=== PATIENT | male | born 1945 | race Caucasian/White ===

== ENCOUNTER 2022-08-05 16:43 | Outpatient (CLI) | payer MEDICARE, OTHER, SELFPAY ==
--- NOTE | 2022-08-05 | IMM_PTH ---
PATIENT: IVAN SALAS LOC: [facility] U#:[id number] AGE/SX: 76/M ROOM: RE08/05/[address]: Dr. Gregorio Baron MD : 1945 BED: DIS: 08/05/2022 SPEC #: [id number] RECD: 08/07/22 14:16 STATUS: JOYCELYN RELg #: [id number] SEEMA: 08/05/22 00:[address]: Gregorio Baron DEPT: IMMUNOHISTOCHEMISTRY RECD BY: Amber Cheema ENTERED: 08/07/22 14:18 SP TYPE: IMMUNO OTHR DR: Alexei Duran, COMPILATION CLERK-C Tissues: B - PROSTATE RIGHT C - PROSTATE RIGHT D - PROSTATE LEFT E - PROSTATE LEFT Procedures: 34BE12 (add) P40 (add) 34BE12 (initial) PHYSICIAN & INSTITUTION [place] [facility] [phone] SPECIMEN INFORMATION: Tissue Source: B - Right mid, C - Right base, D - Left apex, E - Left mid Clinical Info: Elevated PSA Specimen Number: [id number] B-E CPT code: 14381, 26911 x7 METHODOLOGY: Deparaffinized sections of prefer/formalin-fixed tissue or PAP/DQ stained slides are incubated with monoclonal/polyclonal antibodies/oligonucleotide probes. Localization is made via biotin free immunoperoxidase method. Appropriate controls are performed and reacted as expected. Results on target cell population are indicated in the following table: RESULTS: ANTIBODY / CLONE RESULT Block B P40 (BC28) negative * 34BE12 (34BE12) negative * Block C P40 (BC28) negative * 34BE12 (34BE12) negative * Block D P40 (BC28) negative * 34BE12 (34BE12) negative * Block E P40 (BC28) negative * 34BE12 (34BE12) negative * *?Positive in the area of HGPIN. These tests were developed and their performance characteristics determined by [facility]. They may not have been cleared or approved by the [place]. Food and Drug Administration. The FDA has determined that such clearance or approval is not necessary. The above immunohistochemical/dualISH markers are ordered and reviewed by the Pathologist. INTERPRETATION: B. Right prostate, mid, core biopsy: Adenocarcinoma. High-grade prostatic intraepithelial neoplasia (HGPIN). C. Right prostate, base, core biopsy: Adenocarcinoma. High-grade prostatic intraepithelial neoplasia (HGPIN). D. Left prostate, apex, core biopsy: Adenocarcinoma. High-grade prostatic intraepithelial neoplasia (HGPIN). E. 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 SJ:raquel 08/08/2022
--- NOTE | 2022-08-05 09:00 | PROSBIL_PTH ---
PATIENT: IVAN SALAS LOC: [facility] U#:[id number] AGE/SX: 76/M ROOM: RE08/05/[address]: Dr. Gregorio Baron MD : 1945 BED: DIS: 08/05/2022 SPEC #: [id number] RECD: 08/06/22 09:53 STATUS: JOYCELYN RELg #: [id number] SEEMA: 08/05/22 09:[address]: Gregorio Baron DEPT: SURGICAL PATHOLOGY RECD BY: Yasemin Mancia ENTERED: 08/06/22 09:54 SP TYPE: PROST BX JANNETH DR: Alexei Duran, TOSIN-Samir Tissues: A - PROSTATE RIGHT B - PROSTATE RIGHT C - PROSTATE RIGHT D - PROSTATE LEFT E - PROSTATE LEFT F - PROSTATE LEFT Procedures: PROSTATE BX HEADER OPERATION: Prostate biopsy PRE-OP DIAGNOSIS: Elevated PSA TISSUE SUBMITTED: A - Right apex, B - Right mid, C - Right base, D - Left apex, E - Left mid, F - Left base MICROSCOPIC DIAGNOSIS A. Right prostate, apex, core biopsy: Prostatic adenocarcinoma. [place] grade: 3+3=6 Number of cores involved: 1/2 Proportion of tissue involved: ~20% Perineural invasion: Not identified. Greatest tumor length: 0.4 cm Focal high-grade prostatic intraepithelial neoplasia (HGPIN). B. Right prostate, mid, core biopsy: Prostatic adenocarcinoma. [place] grade: 3+3=6 Number of cores involved: 1/2 Proportion of tissue involved: <5% Perineural invasion: Not identified. Greatest tumor length: 0.1 cm Focal high-grade prostatic intraepithelial neoplasia (HGPIN). See comment. C. Right prostate, base, core biopsy: Prostatic adenocarcinoma. [place] grade: 3+3=6 Number of cores involved: 1/2 Proportion of tissue involved: <5% Perineural invasion: Not identified. Greatest tumor length: 0.1 cm Focal high-grade prostatic intraepithelial neoplasia (HGPIN). See comment. D. Left prostate, apex, core biopsy: Prostatic adenocarcinoma. [place] grade: 3+3=6 Number of cores involved: 1/2 Proportion of tissue involved: ~20% Perineural invasion: Not identified. Greatest tumor length: 0.4 cm Focal high-grade prostatic intraepithelial neoplasia (HGPIN). See comment. E. 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 See comment. F. Left prostate, base, core biopsy: Focal high-grade prostatic intraepithelial neoplasia (HGPIN). SJ:raquel 08/07/2022 COMMENT B-E. Immunohistochemistry ([id number]) supports the above diagnosis. MICROSCOPIC DESCRIPTION Slides are reviewed. GROSS DESCRIPTION A - Received is one container designated prostate, right apex. The specimen consists of two elongated fragments of light varner-white soft tissue each measuring 1.0 cm in length and 0.1 cm in diameter. The specimen is totally submitted in one cassette. B - Received is one container designated prostate, right mid. The specimen consists of two elongated fragments of light varner-white soft tissue measuring 1.2 and 1.5 cm in length and 0.1 cm in diameter. The specimen is totally submitted in one cassette. C - Received is one container designated prostate, right base. The specimen consists of two elongated fragments of light varner-white soft tissue each measuring 1.2 cm in length and 0.1 cm in diameter. The specimen is totally submitted in one cassette. D - Received is one container designated prostate, left apex. The specimen consists of two elongated fragments of light varner-white soft tissue each measuring 0.9 cm in length and 0.1 cm in diameter. The specimen is totally submitted in one cassette. E - Received is one container designated prostate, left mid. The specimen consists of two elongated fragments of light varner-white soft tissue each measuring 1.0 cm in length and 0.1 cm in diameter. The specimen is totally submitted in one cassette. F - Received is one container designated prostate, left base. The specimen consists of two elongated fragments of light varner-white soft tissue each measuring 1.1 cm in length and 0.1 cm in diameter. The specimen is totally submitted in one cassette. / SJ:rg 08/06/2022 TC:0 CPT: G0146
== END 2022-08-05 23:59 | disposition home or self-care (01) ==
LOC: LABSPEC 16:48
PROVIDERS: PCP Nurse Practitioner Family; Visit Provider Urology
DX: C61 Malignant neoplasm of prostate (principal)
CPT/HCPCS: 88305; 88341; 88342; G0416

== ENCOUNTER 2024-11-26 20:47 | Observation (INO) | payer MEDICARE, OTHER, SELFPAY ==
[2024-11-26] VITALS (8 sets, daily range): BP systolic 109–144; BP diastolic 63–91; PULSE 59–83; RESP 16–18; TEMP 36.2–36.9; O2SAT 94–99; BMI 28.2; BMI 28.0
--- NOTE | 2024-11-26 20:53 | EDS_ITS ---
HPI History of Present Illness Chief Complaint: Stroke Alert [facility] Medical History (Updated 11/26/24 @ 22:[address] Josefa Roberts MD) CKD (chronic kidney disease) BPH (benign prostatic hyperplasia) Chronic anemia HLD (hyperlipidemia) HTN (hypertension) Valvular heart disease CAD (coronary artery disease) Home Medications ?Medication ?Instructions ?Recorded ?Last Taken ?Type aspirin 81 mg capsule 81 mg PO DAILY 11/26/24 Unkn own History cholecalciferol (vitamin D3) 25 1,000 unit PO QDAY 01/13 Unknown History mcg (1,000 unit) capsule (Vitamin D3) finasteride 5 mg tablet 5 mg PO DAILY 11/26/24 Unkno wn History metoprolol succinate 25 mg 12.5 mg PO DAILY 11/26/24 U nknown History tablet,extended release 24 hr rosuvastatin 40 mg tablet 40 mg PO DAILY 11/26/24 Unkn own History tamsulosin 0.4 mg capsule 0.4 mg PO DAILY 11/26/24 Unk nown History Allergy/AdvReac Type Severity Reaction Status Date / Time No Known Allergies Allergy Verified 11/26/24 20:48 Family History (Updated 11/26/24 @ 22:[address] Josefa Roberts MD) Mother , while attempting CABG x 4. CAD (coronary artery disease) Hypertension Heart disease Myocardial infarction Other Prostate cancer Surgical History (Updated 11/26/24 @ 21:[address] Josefa Roberts MD) History of tonsillectomy and adenoidectomy Hx of aortic valve replacement Hx of bilateral hip replacements History of bilateral knee replacement Hx of coronary artery bypass surgery Social History household members: spouse Smoking Status: Never smoker alcohol intake: never substance use type: does not use EXAM Physical Exam Const Vital Signs: 11/26/24 20:49 Pulse Rate 72 Respiratory Rate 16 Blood Pressure 144/70 H Blood Pressure Mean 94 Pulse Ox 94 Oxygen Delivery Method Room Air MDM MDM MDM Narrative Medical decision making narrative: HISTORY OF PRESENT ILLNESS: Chief complaint: Code stroke 79-year-old male presents with concern for acute stroke. Notes at 8:30 PM on 11/26/2024 he started experiencing left arm weakness. Denies chest pain. Denies falls. Has blood thinners. REVIEW OF SYSTEMS: Pertinent positives: Left arm weakness Pertinent negatives: Chest pain, headache PHYSICAL EXAM: Nursing triage notes reviewed, Vital signs reviewed Constitutional: please see mdm HENT: MMM Eyes: Pupils equal round and reactive to light, Extraocular muscles intact Neck: No stridor, no JVD, full neck ROM Lungs: Clear to auscultation, No wheezing or rales. No increased work of breathing, no conversational dyspnea, no accessory muscle use, no nasal flaring. No respiratory distress noted Heart: Regular rate and rhythm, No murmurs, No rubs and No gallops, 2+ distal pulses (radial, femoral, posterior tibial) in all extremities Abdomen: Soft, there is no tenderness, rigidity, rebound or guarding, no obvious peritoneal signs, no palpable pulsatile abdominal masses, no auscultated abdominal bruit : No CVAT Extremities: No edema Neuro: Alert, oriented x 3, no speech issues, no aphasia, no cranial nerve deficits, noted slight weakness left upper extremity in a ataxia left upper extremity otherwise no other focal neurologic deficits. NIH of 2 Skin: No rash or lesions noted MEDICAL DECISION MAKING: Chief Complaint: please see HPI External records reviewed: Reviewed prior imaging Factors affecting care: CAD, hypertension, hyperlipidemia, valvular heart disease, chronic anemia BPH Social determinants of health: none History obtained from others: Family Consults: Stroke neurology, stroke radiology, internal medicine [facility] Narrative: Patient was initially hemodynamically stable, afebrile nontoxic-appearing. He had left upper extremity weakness, initial NIH of 2 for left upper extremity weakness and ataxia I considered the following differential diagnosis: CVA, TIA, ICH, Kei's paralysis, focal seizure Given patient was in the 4 0.5 hour TNK window was taken immediately to CT scan per stroke protocol Noncon was verbally read by radiologist as negative. Shared decision-making discussion was undertaken between Dr. Mills (the stroke neurology), myself, patient and daughter and we jointly decided to forego TNK at this time given low NIH, lack of debilitating symptom and due to symptoms improving. Dr. Mills further recommended loading the patient with Aspirin and Plavix. He also recommended obtaining a duplex ultrasound the patient carotid arteries as an inpatient. ALL IMAGES (IF OBTAINED) HAVE BEEN PERSONALLY REVIEWED AND INTERPRETED BY MYSELF. I have personally reviewed the patient's chest x-ray. Chest x-ray is unremarkable for pulmonary edema, pneumothorax, pneumonia or focal cardiopulmonary abnormality. EKG with normal sinus rhythm rate of 69, frequent PVCs, normal axis, normal intervals, no STEMI, no A-fib CT scan of the brain shows no evidence of ICH CTA of the head and neck shows no large vessel occlusion The patient and/or family, caregivers express understanding. The patient and/or family, caregivers agrees with the plan. Right I have personally reviewed the patient's chest x-ray. Chest x-ray is unremarkable for pulmonary edema, pneumothorax, pneumonia or focal cardiopulmonary abnormality. The synthesis of the patient's history, physical exam, labs images suggests likely acute CVA. The patient will be admitted to the PCU for further stroke care per stroke neurology recommendations. Shared decision making: I will have a discussion with the patient and or visitors regarding risk/benefits of further testing or admission. They will be made aware of of the risk/benefits inherent in this decision they will be given the opportunity to voice understanding. Total critical care time today provided was at least 0 minutes. This excludes separately billable procedures. Critical care time (if documented) is secondary to the patient having high probability of clinically significant/life threatening deterioration in the patient's condition which required my urgent intervention. Impression: 1. Acute CVA 2. History of CAD Dispo: Admit to PCU observation This note was generated with [employer] dictation software. It may contain incorrect words, spelling, and punctuation that were not noted in review of the chart nedra or to signing. Discharge Plan Triage Chief Complaint: Stroke Alert ED Provider: Arnol Estrada Dx/Rx/DC Orders Primary Care Provider: Alexei Duran NP
--- OUTSIDE RECORDS SUMMARY | 2024-11-26 20:53 | XMS RPT_ITS | CCD ---
Author Organization [facility] Inform ion [facility] Care Team Providers Care Lens Cementer Name Role Phone ROGER PHARMACEUTICAL REPRESENTATIVE - DRIP BOX TENDER, CHI Wright Primary Care Phys ician Roger UI UX ENGINEER, Chi Bro Primary Care Unav Gregorio Mckeon Attending Unavailable ROGER PHARMACEUTICAL REPRESENTATIVE - DRIP BOX TENDER, CHI Wright Primary Care U navailable SIMMONS PHARMACEUTICAL REPRESENTATIVE-DRIP BOX TENDER, SIMI Attending Unavail able AGRY CUELLAR, SHRAVAN Consulting Unavailable TAMMY CUELLAR, ABISAI Tran Attending Unavailable ROGER PHARMACEUTICAL REPRESENTATIVE - DRIP BOX TENDER, CHI Wright Primary Care U navailable SIMMONS PHARMACEUTICAL REPRESENTATIVE-DRIP BOX TENDER, SIMI Attending Unavail able ROGER PHARMACEUTICAL REPRESENTATIVE - DRIP BOX TENDER, CHI Wright Primary Care U navailable ROGER PHARMACEUTICAL REPRESENTATIVE - DRIP BOX TENDER, CHI Wright Primary Care U navailable SIMMONS PHARMACEUTICAL REPRESENTATIVE-DRIP BOX TENDER, SIMI Attending Unavail able KESHA CUELLAR, RUBIO Admitting Unavailable KESHA CUELLAR, RUBIO Attending Unavailable ROGER PHARMACEUTICAL REPRESENTATIVE - DRIP BOX TENDER, CHI rWight Primary Care U shad BETH MD, DR GUARDADO Admitting Unavailab gregory BETH MD, DR GUARDADO Attending Unavailab le ROGER PHARMACEUTICAL REPRESENTATIVE - DRIP BOX TENDER, CHI Wright Primary Care U navailable ROGER PHARMACEUTICAL REPRESENTATIVE - DRIP BOX TENDER, CHI Wright Primary Care U navailable ROGER PHARMACEUTICAL REPRESENTATIVE - DRIP BOX TENDER, CHI Wright Attending U navailable ROGER PHARMACEUTICAL REPRESENTATIVE - DRIP BOX TENDER, CHI Wright Primary Care U navailable SIMMONS PHARMACEUTICAL REPRESENTATIVE-DRIP BOX TENDER, SIMI Attending Unavail able ROGER PHARMACEUTICAL REPRESENTATIVE - DRIP BOX TENDER, CHI Wright Primary Care U navailable SIMMONS PHARMACEUTICAL REPRESENTATIVE-DRIP BOX TENDER, SIMI Attending Unavail able ROGER PHARMACEUTICAL REPRESENTATIVE - DRIP BOX TENDER, CHI Wright Primary Care U navailable SIMMONS PHARMACEUTICAL REPRESENTATIVE-DRIP BOX TENDER, SIMI Attending Unavail able ROGER PHARMACEUTICAL REPRESENTATIVE - DRIP BOX TENDER, CHI Wright Primary Care U navailable SIMMONS PHARMACEUTICAL REPRESENTATIVE-DRIP BOX TENDER, SIMI Attending Unavail able ROGER PHARMACEUTICAL REPRESENTATIVE - DRIP BOX TENDER, CHI Wright Primary Care U shad REBOLLEDO MD, RUBIO Attending Unavailable ROGER PHARMACEUTICAL REPRESENTATIVE - DRIP BOX TENDER, CHI Wright Primary Care U navailable ROGER PHARMACEUTICAL REPRESENTATIVE - DRIP BOX TENDER, CHI Wright Attending U shad NEAL MD, DR GREGORIO CARPENTER Attending Shayna nieto ROGER PHARMACEUTICAL REPRESENTATIVE - DRIP BOX TENDER, CHI Wright Primary Care U navailable ROGER PHARMACEUTICAL REPRESENTATIVE - DRIP BOX TENDER, CHI Wright Primary Care U navailable ROGER PHARMACEUTICAL REPRESENTATIVE - DRIP BOX TENDER, CHI Wright Attending U navailable ROGER PHARMACEUTICAL REPRESENTATIVE - DRIP BOX TENDER, CHI Wright Attending U navailable ROGER PHARMACEUTICAL REPRESENTATIVE - DRIP BOX TENDER, CHI Wright Primary Care U navailable ROGER PHARMACEUTICAL REPRESENTATIVE - DRIP BOX TENDER, CHI Wright Primary Care U navailable GREGORIO NEAL Attending Unavailable ROGER PHARMACEUTICAL REPRESENTATIVE - DRIP BOX TENDER, CHI Wright Primary Care U navailable DEJAN CUELLAR, TANYA Attending Unavailable ROGER PHARMACEUTICAL REPRESENTATIVE - DRIP BOX TENDER, CHI Wright Primary Care U navailable ROGER PHARMACEUTICAL REPRESENTATIVE - DRIP BOX TENDER, CHI Wright Attending U navailable ROGER PHARMACEUTICAL REPRESENTATIVE - DRIP BOX TENDER, CHI Wright Primary Care U navailable ROGER PHARMACEUTICAL REPRESENTATIVE - DRIP BOX TENDER, CHI Wright Attending U navailable DERICK AMOR Attending Unavailable ROGER PHARMACEUTICAL REPRESENTATIVE - DRIP BOX TENDER, CHI Wright Primary Care U navailable ÁNGEL, GREOGRIO Attending Unavailable ROGER PHARMACEUTICAL REPRESENTATIVE - DRIP BOX TENDER, CHI Wright Primary Care U navailable Medications Current Medications Medication Drug Class(es) Dates Sig (Normalized) Sig (Original) acetaminophen 1000 mg oral tablet (10 sources) Start: 07-07-2020 take 1 tablet by mouth once daily Tylenol Dose : 1,000 mg = 2 tab(s), Oral, TID, not to exceed 3000 mg/day, 0 Refill(s) Start Date: 07/07/20 Status: Ordered aspirin 81 mg delayed release oral tablet (20 sources) Platelet Aggregation Inhibitor, Nonsteroidal Anti-inflammatory Drug Start: 05-19-2023 aspirin 81 mg oral delayed release tablet Dose : 81 mg = 1 tab(s), Oral, Daily, 0 Refill(s) Start Date: 05/19/23 Status: Ordered Repeat number: 1 Start: 08-21-2021 take 1 tablet by justice th twice daily at mealtime aspirin Dose : 81 mg = 1 tab(s), Oral, BIDM, Take 81 mg aspirin twice daily with food for 4 weeks postoperatively for DVT prophylaxis, 0 Refill(s) Start Date: 08/21/21 Status: Ordered Start: 07-07-2020 take 1 tablet by justice th twice daily at mealtime aspirin Dose : 81 mg = 1 tab(s), Oral, qDay, Take 81 mg aspirin twice daily with food for 4 weeks postoperatively for DVT prophylaxis, 0 Refill(s) Start Date: 07/07/20 Status: Ordered Azithromycin 5 Day Dose Pack 250 mg oral tablet (1 source) Start: 12-29-2022 End: 01-03-2023 Azithromycin 5 Day Dose Pack 250 mg oral tablet Take two (2) tablets day 1-then one (1) tablet, Oral, Daily, X 5 day(s), # 6 tab(s), 0 Refill(s), 01/03/23 13:30:00 EDT, Pharmacy: [facility]/pharmacy #[id number], 181, cm, 12/29/22 12:59:00 EDT, Height, 102.9 Start Date: 12/29/22 Stop Date: 01/03/23 Status: Ordered calcium citrate 500 mg oral tablet (7 sources) Start: 04-29-2022 take 1 tablet by mouth twice daily Citracal 500 mg oral tablet Oral, BID, 0 Refill(s) Start Date: 04/29/22 Status: Ordered Start: 07-23-2021 take 1 tablet by justice th twice daily Citracal 500 mg oral tablet Dose : 500 mg =, Oral, BID, 0 Refill(s) Start Date: 07/23/21 Status: Ordered cephalexin 500 mg oral capsule (1 source) Cephalosporin Antibacterial Start: 03-05-2014 take 500 mg by mouth every six hours Cephalexin Active 500 MG PO EVERY 6 HOURS 40 March 04, 2014 11:00pm clopidogrel 75 mg oral tablet (7 sources) [id number] Platelet Inhibitor Start: 12-28-2023 Plavix 75 mg oral tablet Dose : 75 mg = 1 tab(s), Oral, qDay, # 90 tab(s), 3 Refill(s), Pharmacy: [facility]/pharmacy #[id number], 185, cm, 12/14/23 8:06:00 EDT, Height, kg, 12/14/23 8:06:00 EDT, Dosing Weight Start Date: 12/28/23 Status: Ordered Quantity: 90.0 Unit: tab(s) Repeat number: 4 Start: 09-28-2023 Plavix 75 mg o ral tablet Dose : 75 mg = 1 tab(s), Oral, qDay, # 90 tab(s), 0 Refill(s), [id number] 185, cm, 09/07/23 10:31:00 EDT, Height, kg, 09/07/23 10:31:00 EDT, Dosing Weight Start Date: 09/28/23 Status: Ordered Start: 07-01-2023 Plavix 75 mg o ral tablet Dose : 75 mg = 1 tab(s), Oral, qDay, # 90 tab(s), 0 Refill(s), [id number], 185.4, cm, 06/30/23 9:23:00 EST, Height, kg, 06/30/23 9:23:00 EST, Dosing Weight Start Date: 07/01/23 Status: Ordered famotidine 20 mg oral tablet (3 sources) Histamine-2 Receptor Antagonist Start: 08-21-2021 Pepcid 20 mg oral tablet Dose : 20 mg = 1 tab(s), Oral, qDay, # 30 tab(s), 0 Refill(s), [id number], 182, cm, 08/20/21 15:11:00 EST, Height, kg, 08/20/21 15:11:00 EST, Dosing Weight Start Date: 08/21/21 Status: Ordered finasteride 5 mg oral tablet (20 sources) 5-alpha Reductase Inhibitor Start: 06-27-2024 Proscar 5 mg oral tablet Dose : 5 mg = 1 tab(s), Oral, qDay, PSA elevation, # 100 tab(s), 1 Refill(s), Pharmacy: [facility]/pharmacy #[id number], PSA elevation, 180, cm, 06/27/24 8:03:00 EST, Height, kg, 06/27/24 8:03:00 EST, Dosing Weight Start Date: 06/27/24 Status: Ordered Quantity: 100.0 Unit: tab(s) Repeat number: 2 Indications: Elevated prostate specific antigen [PSA]; Start: 12-14-2023 Proscar 5 mg o ral tablet Dose : 5 mg = 1 tab(s), Oral, qDay, PSA elevation, # 100 tab(s), 1 Refill(s), [id number], PSA elevation, 185, cm, 12/14/23 8:06:00 EDT, Height, kg, 12/14/23 8:06:00 EDT, Dosing Weight Start Date: 12/14/23 Status: Ordered Quantity: 100.0 Unit: tab(s) Repeat number: 2 Indication: Elevated prostate specific antigen [PSA] Start: 05-25-2023 End: 11-21-2023 Proscar 5 mg oral tablet Dos e : 5 mg = 1 tab(s), Oral, qDay, PSA elevation, # 100 tab(s), 1 Refill(s), [id number], PSA elevation, 185, cm, 09/07/23 10:31:00 EDT, Height, kg, 09/07/23 10:31:00 EDT, Dosing Weight Start Date: 09/22/23 Status: Ordered Start: 05-29-2022 End: 05-23-2023 Proscar 5 mg oral tablet Dos e : 5 mg = 1 tab(s), Oral, qDay, PSA elevation, # 90 tab(s), 1 Refill(s), [id number], PSA elevation, 185, cm, 11/24/22 8:28:00 EDT, Height, kg, 11/24/22 8:28:00 EDT, Dosing Weight Start Date: 11/24/22 Stop Date: 05/23/23 Status: Ordered lactulose 667 mg/ml oral solution (1 source) Osmotic Laxative Start: 06-18-2021 End: 07-02-2021 take 1 dose by mouth twice daily lactulose 10 g/15 mL oral syrup Dose : 6.667 gram(s) = 10 mL, Oral, BID, X 7 day(s), # 140 mL, 1 Refill(s), 07/02/21 14:36:00 EST, Pharmacy: [facility]/pharmacy #[id number], 185.4, cm, 06/06/21 8:59:00 EST, Height, kg, 06/06/21 8:59:00 EST, Dosing Weight Start Date: 06/18/21 Stop Date: 07/02/21 Status: Ordered meloxicam 15 mg oral tablet (7 sources) Nonsteroidal Anti-inflammatory Drug Start: 10-20-2023 meloxicam 15 mg oral tablet Dose : 15 mg = 1 tab(s), Oral, qDay, # 90 tab(s), 1 Refill(s), Pharmacy: [facility]/pharmacy #[id number], 185, cm, 09/07/23 10:31:00 EDT, Height, kg, 09/07/23 10:31:00 EDT, Dosing Weight Start Date: 10/20/23 Status: Ordered Start: 11-24-2022 meloxicam 15 m g oral tablet Dose : 15 mg = 1 tab(s), Oral, qDay, TAKE 1 TABLET BY MOUTH EVERY DAY, # 90 tab(s), 1 Refill(s), Pharmacy: [facility]/pharmacy #[id number], 185, cm, 11/24/22 8:28:00 EDT, Height, kg, 11/24/22 8:28:00 EDT, Dosing Weight Start Date: 11/24/22 Status: Ordered Start: 06-30-2022 meloxicam 15 m g oral tablet Dose : 15 mg = 1 tab(s), Oral, qDay, TAKE 1 TABLET BY MOUTH EVERY DAY, # 90 tab(s), 1 Refill(s), Pharmacy: [facility]/pharmacy #[id number], 185, cm, 05/29/22 8:21:00 EST, Height, kg, 05/29/22 8:21:00 EST, Dosing Weight Start Date: 06/30/22 Status: Ordered Start: 01-06-2022 meloxicam 15 m g oral tablet Dose : 15 mg = 1 tab(s), Oral, qDay, TAKE 1 TABLET BY MOUTH EVERY DAY, # 90 tab(s), 1 Refill(s), Pharmacy: [facility]/pharmacy #[id number], 181.5, cm, 12/13/21 8:44:00 EDT, Height Start Date: 01/06/22 Status: Ordered Start: 06-06-2021 meloxicam 15 m g oral tablet Dose : 15 mg = 1 tab(s), Oral, qDay, # 30 tab(s), 0 Refill(s) Start Date: 06/06/21 Status: Ordered 24 hr metoprolol succinate 25 mg extended release oral tablet (20 sources) beta-Adrenergic Jonathan Start: 06-27-2024 End: 12-24-2024 metoprolol succinate 25 mg oral TABLET extended release Dose : 25 mg = 1 tab(s), Oral, qDay, Do not crush or chew (controlled release), # 100 tab(s), 1 Refill(s), [id number], CAD (coronary artery disease), 180, cm, 06/27/24 8:03:00 EST, Height, kg, 06/27/24 8:03:00 EST, Dosing Weight Start Date: 06/27/24 Stop Date: 12/24/24 Status: Ordered Quantity: 100.0 Unit: tab(s) Repeat number: 2 Indications: Atherosclerotic heart disease of [place] coronary artery without angina pectoris; Start: 12-14-2023 End: 06-11-2024 metoprolol succinate 25 mg o ral TABLET extended release Dose : 25 mg = 1 tab(s), Oral, qDay, Do not crush or chew (controlled release), # 90 tab(s), 1 Refill(s), [id number], CAD (coronary artery disease), 185, cm, 12/14/23 8:06:00 EDT, Height, kg, 12/14/23 8:06:00 EDT, Dosing Weight Start Date: 12/14/23 Stop Date: 06/11/24 Status: Ordered Quantity: 90.0 Unit: tab(s) Repeat number: 2 Indication: Atherosclerotic heart disease of [place] coronary artery without angina pectoris Start: 07-01-2023 End: 07-01-2023 metoprolol succinate 25 mg o ral TABLET extended release Start: 07/01/23 9:19:00 AM EST, Dose = 25 mg, = 1 tab(s), Oral, 0, 07/01/23 9:18:00 EST Start Date: 07/01/23 Stop Date: 07/01/23 Status: Completed Start: 05-25-2023 End: 11-21-2023 metoprolol succinate 25 mg o ral TABLET extended release Dose : 25 mg = 1 tab(s), Oral, qDay, Do not crush or chew (controlled release), # 90 tab(s), 1 Refill(s), Pharmacy: [facility]/pharmacy #[id number], CAD (coronary artery disease), 179.5, cm, 05/25/23 11:00:00 EST, Height, kg, 05/25/23 11:00:00 EST, Dosing Weight Start Date: 05/25/23 Stop Date: 11/21/23 Status: Ordered Start: 12-13-2021 End: 05-23-2023 metoprolol succinate 25 mg o ral TABLET extended release Dose : 25 mg = 1 tab(s), Oral, qDay, Do not crush or chew (controlled release), # 90 tab(s), 1 Refill(s), [id number], CAD (coronary artery disease), 185, cm, 11/24/22 8:28:00 EDT, Height, kg, 11/24/22 8:28:00 EDT, Dosing Weight Start Date: 11/24/22 Stop Date: 05/23/23 Status: Ordered Start: 05-31-2021 End: 02-25-2022 metoprolol succinate 25 mg o ral TABLET extended release Dose : 25 mg = 1 tab(s), Oral, qDay, Do not crush or chew (controlled release), # 90 tab(s), 2 Refill(s), [id number], CAD (coronary artery disease), 184.5, cm, 05/31/21 9:36:00 EST, Height, kg, 05/31/21 9:36:00 EST, Dosing Weight Start Date: 05/31/21 Stop Date: 02/25/22 Status: Ordered ondansetron 4 mg oral tablet (2 sources) Serotonin-3 Receptor Antagonist Start: 10-17-2024 End: 10-22-2024 Zofran 4 mg oral tablet Dose : 4 mg = 1 tab(s), Oral, q6h, X 5 day(s), # 20 tab(s), 0 Refill(s), 10/22/24 4:22:00 PM EDT, [id number], 180, cm, 10/17/24 9:05:00 EDT, Height, kg, 10/17/24 9:05:00 EDT, Dosing Weight Start Date: 10/17/24 Stop Date: 10/22/24 Status: Ordered Quantity: 20.0 Unit: tab(s) Repeat number: 1 oxyCODONE hydrochloride 5 mg oral tablet (3 sources) Opioid Agonist Start: 08-29-2021 End: 09-03-2021 oxyCODONE 5 mg oral tablet ( IMMEDIATE release ) Dose : 5 mg = 1 tab(s), Oral, q6h, PRN for pain, Fill Date: 08/29/2021, X 5 day(s), # 20 tab(s), 0 Refill(s), 09/03/21 9:56:00 EDT, Pharmacy: [facility]/pharmacy #[id number], Pain of right hip S/P total hip arthroplasty, 181.5, cm, 08/29/21 8:58:00 EST, Height,... Start Date: 08/29/21 Stop Date: 09/03/21 Status: Ordered Start: 08-21-2021 End: 08-28-2021 take 1-2 tablets by mouth every four hours as needed for pain oxyCODONE 5 mg oral tablet ( IMMEDIATE release ) See Instructions, PRN as needed for pain, 1-2 tab(s) Oral q4h, # 42 tab(s), 0 Refill(s), 08/28/21 7:45:00 EST, S/P total right hip arthroplasty, 104.5 Start Date: 08/21/21 Stop Date: 08/28/21 Status: Ordered ramipril 10 mg oral capsule (20 sources) Angiotensin Converting Enzyme Inhibitor Start: 06-27-2024 End: 12-24-2024 ramipril 10 mg oral capsule Dose : 10 mg = 1 cap(s), Oral, qDay, # 100 cap(s), 1 Refill(s), Pharmacy: [facility]/pharmacy #[id number], HTN, goal below 140/90, 180, cm, 06/27/24 8:03:00 EST, Height, kg, 06/27/24 8:03:00 EST, Dosing Weight Start Date: 06/27/24 Stop Date: 12/24/24 Status: Ordered Quantity: 100.0 Unit: cap(s) Repeat number: 2 Indications: Essential (primary) hypertension; Start: 12-14-2023 End: 06-11-2024 ramipril 10 mg oral capsule Dose : 10 mg = 1 cap(s), Oral, qDay, # 90 cap(s), 1 Refill(s), Pharmacy: [facility]/pharmacy #[id number], HTN, goal below 140/90, 185, cm, 12/14/23 8:06:00 EDT, Height, kg, 12/14/23 8:06:00 EDT, Dosing Weight Start Date: 12/14/23 Stop Date: 06/11/24 Status: Ordered Quantity: 90.0 Unit: cap(s) Repeat number: 2 Indication: Essential (primary) hypertension Start: 05-25-2023 End: 11-21-2023 ramipril 10 mg oral capsule Dose : 10 mg = 1 cap(s), Oral, qDay, # 90 cap(s), 1 Refill(s), Pharmacy: [facility]/pharmacy #[id number], HTN, goal below 140/90, 179.5, cm, 05/25/23 11:00:00 EST, Height, kg, 05/25/23 11:00:00 EST, Dosing Weight Start Date: 05/25/23 Stop Date: 11/21/23 Status: Ordered Start: 05-31-2021 End: 05-23-2023 ramipril 10 mg oral capsule Dose : 10 mg = 1 cap(s), Oral, qDay, # 90 cap(s), 1 Refill(s), Pharmacy: [facility]/pharmacy #[id number], HTN, goal below 140/90, 185, cm, 11/24/22 8:28:00 EDT, Height, kg, 11/24/22 8:28:00 EDT, Dosing Weight Start Date: 11/24/22 Stop Date: 05/23/23 Status: Ordered rosuvastatin calcium 40 mg oral tablet (20 sources) HMG-CoA Reductase Inhibitor Start: 06-27-2024 rosuvastatin 40 mg oral tablet Dose : 40 mg = 1 tab(s), Oral, qDay, # 100 tab(s), 1 Refill(s), Pharmacy: [facility]/pharmacy #[id number], 180, cm, 06/27/24 8:03:00 EST, Height, kg, 06/27/24 8:03:00 EST, Dosing Weight Start Date: 06/27/24 Status: Ordered Quantity: 100.0 Unit: tab(s) Repeat number: 2 Start: 12-14-2023 rosuvastatin 4 0 mg oral tablet Dose : 40 mg = 1 tab(s), Oral, qDay, # 100 tab(s), 1 Refill(s), [id number], 185, cm, 12/14/23 8:06:00 EDT, Height, kg, 12/14/23 8:06:00 EDT, Dosing Weight Start Date: 12/14/23 Status: Ordered Quantity: 100.0 Unit: tab(s) Repeat number: 2 Start: 09-22-2023 rosuvastatin 4 0 mg oral tablet Dose : 40 mg = 1 tab(s), Oral, qDay, # 100 tab(s), 1 Refill(s), [id number], 185, cm, 09/07/23 10:31:00 EDT, Height, kg, 09/07/23 10:31:00 EDT, Dosing Weight Start Date: 09/22/23 Status: Ordered Start: 05-25-2023 rosuvastatin 4 0 mg oral tablet Dose : 40 mg = 1 tab(s), Oral, qDay, # 90 tab(s), 0 Refill(s) Start Date: 05/25/23 Status: Ordered Start: 05-31-2021 End: 05-23-2023 rosuvastatin 40 mg oral tabl et Dose : 40 mg = 1 tab(s), Oral, qHS, X 90 day(s), # 90 tab(s), 1 Refill(s), 05/23/23 9:12:00 AM EST, Pharmacy: [facility]/pharmacy #[id number], Hyperlipidemia LDL goal Start Date: 11/24/22 Stop Date: 05/23/23 Status: Ordered sennosides, CORRECTION (1 source) Start: 08-21-2021 End: 08-24-2021 take 1 tablet by mouth twice daily Senokot S 50 mg-8.6 mg oral tablet Dose = 2 tab(s), Oral, BID, Take until first bowel movement, then as needed, # 20 tab(s), 0 Refill(s), Pharmacy: [facility]/pharmacy #[id number], 182, cm, 08/20/21 15:11:00 EST, Height, kg, 08/20/21 15:11:00 EST, Dosing Weight Start Date: 08/21/21 Stop Date: 08/24/21 Status: Ordered sulfamethoxazole 800 mg / trimethoprim 160 mg oral tablet (2 sources) Dihydrofolate Reductase Inhibitor Antibacterial, Sulfonamide Antimicrobial Start: 10-17-2024 End: 10-27-2024 take 1 tablet by mouth twice daily Bactrim DS 800 mg-160 mg oral tablet Dose = 1 tab(s), Oral, BID, X 10 day(s), # 20 tab(s), 0 Refill(s), Pharmacy: [facility]/pharmacy #[id number], 180, cm, 10/17/24 9:05:00 EDT, Height, 101, kg, 10/17/24 9:05:00 EDT, Dosing Weight Start Date: 10/17/24 Stop Date: 10/27/24 Status: Ordered Quantity: 20.0 Unit: tab(s) Repeat number: 1 tamsulosin hydrochloride 0.4 mg oral capsule (20 sources) alpha-Adrenergic Jonathan Start: 06-27-2024 tamsulosin 0.4 mg oral capsule Dose : 0.4 mg = 1 cap(s), Oral, qDay, # 100 cap(s), 1 Refill(s), Pharmacy: [facility]/pharmacy #[id number], 180, cm, 06/27/24 8:03:00 EST, Height, kg, 06/27/24 8:03:00 EST, Dosing Weight Start Date: 06/27/24 Status: Ordered Quantity: 100.0 Unit: cap(s) Repeat number: 2 Start: 12-14-2023 tamsulosin 0.4 mg oral capsule Dose : 0.4 mg = 1 cap(s), Oral, qDay, # 100 cap(s), 1 Refill(s), Pharmacy: [facility]/pharmacy #[id number], 185, cm, 12/14/23 8:06:00 EDT, Height, kg, 12/14/23 8:06:00 EDT, Dosing Weight Start Date: 12/14/23 Status: Ordered Quantity: 100.0 Unit: cap(s) Repeat number: 2 Start: 05-25-2023 End: 11-21-2023 tamsulosin 0.4 mg oral capsu le Dose : 0.4 mg = 1 cap(s), Oral, qDay, # 100 cap(s), 1 Refill(s), [id number], 185, cm, 09/07/23 10:31:00 EDT, Height, kg, 09/07/23 10:31:00 EDT, Dosing Weight Start Date: 09/22/23 Status: Ordered Start: 05-29-2022 End: 05-23-2023 tamsulosin 0.4 mg oral capsu le Dose : 0.4 mg = 1 cap(s), Oral, qDay, # 90 cap(s), 1 Refill(s), [id number], 185, cm, 11/24/22 8:28:00 EDT, Height, kg, 11/24/22 8:28:00 EDT, Dosing Weight Start Date: 11/24/22 Stop Date: 05/23/23 Status: Ordered Start: 07-23-2021 tamsulosin 0.4 mg oral capsule Dose : 0.4 mg = 1 cap(s), Oral, qDay, # 30 cap(s), 0 Refill(s) Start Date: 07/23/21 Status: Ordered Vitamin D3 25 mcg (1000 intl units) oral tablet (6 sources) Start: 06-27-2024 Vitamin D3 25 mcg (1000 intl units) oral tablet Dose : 25 mcg = 1 tab(s), Oral, qDay, # 30 tab(s), 0 Refill(s) Start Date: 06/27/24 Status: Ordered Quantity: 30.0 Unit: tab(s) Repeat number: 1 Completed/Discontinued Medications Medication Drug Class(es) Dates Sig (Normalized) Sig (Original) amoxicillin 500 mg oral capsule (2 sources) Penicillin-class Antibacterial Start: 07-10-2023 End: 07-10-2023 amoxicillin 500 mg oral capsule Dose : 2,000 mg = 4 cap(s), Oral, Daily, given prior to the dental procedure, # 4 cap(s), 3 Refill(s), [id number], Prophylactic antibiotics NEEDED prior to dental procedures., 178, cm, 07/10/23 14:07:00 EST, Height, kg, 07/10/23 14:07:00 EST, Dosing Weight Start Date: 07/10/23 Stop Date: 07/10/23 Status: Ordered Problems Active Problems Problem Classification Problem Date Documented Da te Episodic/Chronic Abdominal pain (3 sources) Abdominal discomfort 10-17-2024 Episodic Chronic kidney disease (20 sources) Chronic kidney disease stage 3; Translations: [Chronic kidney disease, stage 3 (moderate)] Onset: 2 11-10-2019 Chronic Chronic kidney disease (4 sources) Chronic kidney disease; Translations: [Chronic kidney disease, stage 3 unspecified] Onset: 4 Congestive heart failure; nonhypertensive (14 sources) Acute on chronic diastolic heart failure; Translations: [Acute on chronic diastolic (congestive) heart failure] Onset: 4 Chronic Coronary atherosclerosis and other heart disease (20 sources) Coronary arteriosclerosis; Translations: [Coronary arteriosclerosis in [place] artery] Onset: 2 05-31-2021 Chronic Comment on above: s/p CABG X5 in 2009 ([place]) STEMI-inferior poste rior wall Deficiency and other anemia (20 sources) Anemia 12-13-2021 Episodic Disorders of lipid metabolism (20 sources) Hyperlipidemia; Translations: [Mixed hyperlipidemia] Onset: 2 11-10-2019 Chronic Essential hypertension (20 sources) Essential hypertension; Translations: [Hypertensive disorder] Onset: 2 08-29-2019 Chronic Genitourinary symptoms and ill-defined conditions (1 source) Blood in urine; Translations: [Hematuria, unspecified] Onset: 2 Episodic Heart valve disorders (20 sources) Aortic stenosis, non-rheumatic ; Translations: [Nonrheumatic aortic (valve) stenosis] Onset: 4 Chronic Hyperplasia of prostate (1 source) Benign prostatic hypertrophy without outflow obstruction; Translations: [Benign prostatic hyperplasia without lower urinary tract symptoms] Onset: 2 Chronic Intestinal obstruction without hernia (3 sources) Intestinal obstruction 10-17-2024 Episodic Nutritional deficiencies (11 sources) Vitamin D deficiency; Translations: [Vitamin D deficiency, unspecified] Onset: 4 12-14-2023 Chronic Osteoarthritis (20 sources) Arthritis; Translations: [Osteoarthritis] Onset: 2 11-10-2019 Chronic Other aftercare (20 sources) Post-discharge follow-up 05-25-2023 Episodic Other gastrointestinal disorders (3 sources) Acute constipation 10-17-2024 Episodic Other non-traumatic joint disorders (20 sources) Hip pain 05-11-2020 Episodic Other nutritional; endocrine; and metabolic disorders (1 source) General symptom; Translations: [Other symptoms and signs concerning food and fluid intake] Onset: Episodic Peripheral and visceral atherosclerosis (4 sources) Renal artery stenosis 07-12-2024 Chronic Residual codes; unclassified (20 sources) Increased body mass index 05-31-2021 Episodic Residual codes; unclassified (12 sources) Antibiotic prophylaxis indicated 07-10-2023 Episodic Comment on above: Prophylactic antibio tics required prior to dental procedures. Unclassified (20 sources) Patient encounter status 11-10-2019 Unclassified (20 sources) Non-smoker 12-13-2021 Unclassified (15 sources) Severe aortic valve stenosis 05-25-2023 Past or Other Problems Problem Classification Problem Date Documented Da te Episodic/Chronic Diabetes mellitus without complication (20 sources) Impaired fasting glycemia; Translations: [Impaired fasting glucose] Onset: 12-10-2023 11-10-2019 Episodic Other screening for suspected conditions (not mental disorders or infectious disease) (20 sources) Raised prostate specific antigen; Translations: [Elevated prostate specific antigen [PSA]] Onset: 08-13-2022 05-31-2021 Episodic Results Test Name Value Interpretation Reference Range Facility .Auto Diffon 11-07-2024 Basophil, Absolute 0.0 10 3/mcL Normal 0.0-0.3 [facility] Comment on above: Performed By: #### A DIFF, GFR, A1C, CBC, CMP, LIPID, VIDH, [id number], ANEU #### [address] [address] #### PTH #### [facility] [address] [place] [address] Basophils/100 WBC (Bld) 0.4 % Normal 0.0-2.5 [facility] Comment on above: Performed By: #### A DIFF, GFR, A1C, CBC, CMP, LIPID, VIDH, [id number], ANEU #### [place] [address] [place], [place] [address] #### PTH #### [address] [address] Eosinophil, Absolute 0.1 10 3/mcL Normal 0.0-0.7 [facility] Comment on above: Performed By: #### A DIFF, GFR, A1C, CBC, CMP, LIPID, VIDH, [id number], ANEU #### [place] [address] #### PTH #### [address] [address] Eosinophils/100 WBC (Bld) 3.7 % Normal 0.0-6.0 [facility] Comment on above: Performed By: #### A DIFF, GFR, A1C, CBC, CMP, LIPID, VIDH, [id number], ANEU #### [place] [address] #### PTH #### [address] [address] Lymphocyte, Absolute 0.7 10 3/mcL Low 0.9-4.3 [facility] Comment on above: Performed By: #### A DIFF, GFR, A1C, CBC, CMP, LIPID, VIDH, [id number], ANEU #### [place] [address] #### PTH #### [address] [address] Lymphocytes/100 WBC (Bld) 20.8 % Normal 20.0-40.0 [facility] Comment on above: Performed By: #### A DIFF, GFR, A1C, CBC, CMP, LIPID, VIDH, [id number], ANEU #### [place] [address] #### PTH #### [address] [address] Monocyte, Absolute 0.3 10 3/mcL Normal 0.1-1.4 [facility] Comment on above: Performed By: #### A DIFF, GFR, A1C, CBC, CMP, LIPID, VIDH, [id number], ANEU #### [address] [place] [address] #### PTH #### [address] [address] Monocytes/100 WBC (Bld) 8.9 % Normal 2.0-13.0 [facility] Comment on above: Performed By: #### A DIFF, GFR, A1C, CBC, CMP, LIPID, VIDH, [id number], ANEU #### [address] [address] #### PTH #### [address] [address] Neutrophils/100 WBC (Bld) 66.2 % Normal 50.0-75.0 [facility] Comment on above: Performed By: #### A DIFF, GFR, A1C, CBC, CMP, LIPID, VIDH, [id number], ANEU #### [address] [address] #### PTH #### [address] [address] .GFRon 11-07-2024 Estimated Glomerular Filtration Rate 34 ml/min/1.73sqm Normal [facility] Comment on above: Result Comment: Stages of Chronic Kidney Disease (CKD) Stage Description eGFR(ml/min/1.73 sq.m.) CKD 1 Normal kidney function or >=90 normal kindney function with possible kidney damage (ex. Proteinuria) CKD 2 Kidney damage with mild loss 60-89 of kidney function CKD 3a Mild to moderate loss of kidney 45-59 function CKD 3b Moderate to severe loss of 30-44 of kindey function CKD 4 Severe loss of kidney function 15-29 CKD 5 Kidney failure <15 Note: (go live 2024) the eGFR calculation was updated to the 2020 CKD-EPI creatinine equation without a race factor to calculate the eGFR results. Performed By: #### A DIFF, GFR, A1C, CBC, CMP, LIPID, VIDH, [id number], ANEU #### [address] [address] #### PTH #### [address] [address] .NEUABSon 11-07-2024 Neutrophil, Absolute 2.3 10 3/mcL Normal 2.3-8.1 [facility] Comment on above: Performed By: #### A DIFF, GFR, A1C, CBC, CMP, LIPID, VIDH, [id number], ANEU #### [address] [address] #### PTH #### [place] [id number] CBCon 11-07-2024 Erythrocyte distribution width (RBC) [Ratio] 14.0 % Normal 11.5-15.5 [facility] Comment on above: Performed By: #### A DIFF, GFR, A1C, CBC, CMP, LIPID, VIDH, [id number], ANEU #### [place] [address] #### PTH #### [place] [address] Hematocrit (Bld) [Volume fraction] 33.5 % Low 40.0-52.0 [facility] Comment on above: Performed By: #### A DIFF, GFR, A1C, CBC, CMP, LIPID, VIDH, [id number], ANEU #### [place] [address] #### PTH #### [place] [address] Hgb 11.6 G/dL Low 13.0-17.5 [facility] Comment on above: Performed By: #### A DIFF, GFR, A1C, CBC, CMP, LIPID, VIDH, [id number], ANEU #### [place] [address] #### PTH #### [place] [address] MCH (RBC) [Entitic mass] 34.6 pg High 27.0-33.0 [facility] Comment on above: Performed By: #### A DIFF, GFR, A1C, CBC, CMP, LIPID, VIDH, [id number], ANEU #### [place] [address] #### PTH #### [place] [address] MCHC 34.6 G/dL Normal 32.0-36.0 [facility] Comment on above: Performed By: #### A DIFF, GFR, A1C, CBC, CMP, LIPID, VIDH, [id number], ANEU #### [place] [address] #### PTH #### [place] [address] MCV (RBC) [Entitic vol] 99.8 fL Normal 81.0-100.0 [facility] Comment on above: Performed By: #### A DIFF, GFR, A1C, CBC, CMP, LIPID, VIDH, [id number], ANEU #### [place] [address] #### PTH #### [place] [address] Platelet 178 10 3/mcL Normal 150-450 [facility] Comment on above: Performed By: #### A DIFF, GFR, A1C, CBC, CMP, LIPID, VIDH, [id number], ANEU #### [place] [address] #### PTH #### [place] [address] Platelet mean volume (Bld) [Entitic vol] 6.4 fL Normal 6.4-10.5 [facility] Comment on above: Performed By: #### A DIFF, GFR, A1C, CBC, CMP, LIPID, VIDH, [id number], ANEU #### [place] [address] #### PTH #### [place] [address] RBC 3.35 10 6/mcL Low 4.50-6.00 [facility] Comment on above: Performed By: #### A DIFF, GFR, A1C, CBC, CMP, LIPID, VIDH, [id number], ANEU #### [place] [address] #### PTH #### [place] [address] WBC 3.4 10 3/mcL Low 4.5-10.8 [facility] Comment on above: Performed By: #### A DIFF, GFR, A1C, CBC, CMP, LIPID, VIDH, [id number], ANEU #### [address] [address] #### PTH #### [place] [address] CMPon 11-07-2024 Albumin Level 3.4 G/dL Normal 3.4-4.8 [facility] Comment on above: Performed By: #### A DIFF, GFR, A1C, CBC, CMP, LIPID, VIDH, [id number], ANEU #### [place] [address] #### PTH #### [place] [address] Albumin/Globulin [Mass ratio] 1.1 {ratio} Normal 1.1-2.5 [facility] Comment on above: Performed By: #### A DIFF, GFR, A1C, CBC, CMP, LIPID, VIDH, [id number], ANEU #### [place] [address] #### PTH #### [address] [address] ALP [Catalytic activity/Vol] 107 U/L Normal 40-135 [facility] Comment on above: Performed By: #### A DIFF, GFR, A1C, CBC, CMP, LIPID, VIDH, [id number], ANEU #### [address] [address] #### PTH #### [place] [id number] ALT [Catalytic activity/Vol] 27 U/L Normal 16-63 [facility] Comment on above: Performed By: #### A DIFF, GFR, A1C, CBC, CMP, LIPID, VIDH, [id number], ANEU #### [place] [address] #### PTH #### [address] [address] AST [Catalytic activity/Vol] 14 U/L Normal 10-40 [facility] Comment on above: Performed By: #### A DIFF, GFR, A1C, CBC, CMP, LIPID, VIDH, [id number], ANEU #### [place] [address] #### PTH #### [place] [address] Bili Total 0.6 mg/dL Normal 0.2-1.0 [facility] Comment on above: Result Comment: Use of this assay is not recommended for patients undergoing treatment with eltrombopag due to the potential for falsely elevated results. Performed By: #### A DIFF, GFR, A1C, CBC, CMP, LIPID, VIDH, [id number], ANEU #### [place] [address] #### PTH #### [place] [address] BUN/Creatinine Ratio 14 ratio Normal 7-27 [facility] Comment on above: Performed By: #### A DIFF, GFR, A1C, CBC, CMP, LIPID, VIDH, [id number], ANEU #### [place] [address] #### PTH #### [place] [id number] Calcium [Mass/Vol] 9.2 mg/dL Normal 8.4-10.2 [facility] Comment on above: Performed By: #### A DIFF, GFR, A1C, CBC, CMP, LIPID, VIDH, [id number], ANEU #### [place] [address] #### PTH #### [place] [address] Chloride [Moles/Vol] 107 mmol/L Normal 98-107 [facility] Comment on above: Performed By: #### A DIFF, GFR, A1C, CBC, CMP, LIPID, VIDH, [id number], ANEU #### [address] [address] #### PTH #### [address] [address] CO2 [Moles/Vol] 28 mmol/L Normal 23-31 [facility] Comment on above: Performed By: #### A DIFF, GFR, A1C, CBC, CMP, LIPID, VIDH, [id number], ANEU #### [address] [address] #### PTH #### [place] [address] Creatinine [Mass/Vol] 2.00 mg/dL High 0.67-1.17 [facility] Comment on above: Performed By: #### A DIFF, GFR, A1C, CBC, CMP, LIPID, VIDH, [id number], ANEU #### [place] [address] #### PTH #### [place] [address] Electrolyte Balance 4.0 mEq/L Normal 4.0-15.0 [facility] Comment on above: Performed By: #### A DIFF, GFR, A1C, CBC, CMP, LIPID, VIDH, [id number], ANEU #### [address] [address] #### PTH #### [place] [address] Globulin 3.2 G/dL Normal 2.7-4.4 [facility] Comment on above: Performed By: #### A DIFF, GFR, A1C, CBC, CMP, LIPID, VIDH, [id number], ANEU #### [address] [address] #### PTH #### [place] [address] Glucose [Mass/Vol] 102 mg/dL Normal 83-110 [facility] Comment on above: Performed By: #### A DIFF, GFR, A1C, CBC, CMP, LIPID, VIDH, [id number], ANEU #### [address] [address] #### PTH #### [address] [address] Potassium [Moles/Vol] 4.3 mmol/L Normal 3.5-5.1 [facility] Comment on above: Performed By: #### A DIFF, GFR, A1C, CBC, CMP, LIPID, VIDH, [id number], ANEU #### [address] [address] #### PTH #### [address] [address] Sodium [Moles/Vol] 139 mmol/L Normal 136-145 [facility] Comment on above: Performed By: #### A DIFF, GFR, A1C, CBC, CMP, LIPID, VIDH, [id number], ANEU #### [address] [address] #### PTH #### [address] [address] Total Protein 6.6 G/dL Normal 6.4-8.2 [facility] Comment on above: Performed By: #### A DIFF, GFR, A1C, CBC, CMP, LIPID, VIDH, [id number], ANEU #### [address] [address] #### PTH #### [address] [address] Urea nitrogen [Mass/Vol] 28 mg/dL High 7-18 [facility] Comment on above: Performed By: #### A DIFF, GFR, A1C, CBC, CMP, LIPID, VIDH, [id number], ANEU #### [address] [address] #### PTH #### [address] [address] FEon 11-07-2024 Iron [Mass/Vol] 116 ug/dL Normal 65-175 [facility] Comment on above: Performed By: #### A DIFF, GFR, A1C, CBC, CMP, LIPID, VIDH, [id number], ANEU #### [address] [address] #### PTH #### [address] [address] [place] 11-07-2024 Ferritin [Mass/Vol] 463.0 ng/mL High 26.0-388.0 [facility] Comment on above: Performed By: #### A DIFF, GFR, A1C, CBC, CMP, LIPID, VIDH, [id number], ANEU #### [address] [address] #### PTH #### [place] [address] IBCon 11-07-2024 TIBC 233 mcg/dL Low 250-450 [facility] Comment on above: Performed By: #### A DIFF, GFR, A1C, CBC, CMP, LIPID, VIDH, [id number], ANEU #### [address] [address] #### PTH #### [place] [address] LABORATORYOrdered By: SYSTEM SYSTEM on 11-07-2024 Albumin BCP dye [Mass/Vol] 3.4 G/dL Normal 3.4 - 4.8 G/dL AO ADM SS Albumin/Globulin [Mass ratio] 1.1 {ratio} Normal 1.1 - 2.5 ratio AO ADM SS ALP [Catalytic activity/Vol] 107 U/L Normal 40 - 135 U/L AO ADM SS ALT With P-5'-P [Catalytic activity/Vol] 27 U/L Normal 16 - 63 U/L AO ADM SS AST With P-5'-P [Catalytic activity/Vol] 14 U/L Normal 10 - 40 U/L AO ADM SS Basophils (Bld) [#/Vol] 0.0 103/mcL Normal 0.0 - 0.3 10^3/mcL AO Workflow SS Basophils/100 WBC (Bld) 0.4 % Normal 0.0 - 2.5 % AO Workflow SS Bilirubin [Mass/Vol] 0.6 mg/dL Normal 0.2 - 1 .0 mg/dL AO ADM SS Comment on above: Interpretive Data: U se of this assay is not recommended for patients undergoing treatment with eltrombopag due to the potential for falsely elevated results. Calcium [Mass/Vol] 9.2 mg/dL Normal 8.4 - 10. 2 mg/dL AO ADM SS Chloride [Moles/Vol] 107 mmol/L Normal 98 - 10 7 mmol/L AO ADM SS CO2 [Moles/Vol] 28 mmol/L Normal 23 - 31 mmol/L AO ADM SS Creatinine [Mass/Vol] 2.00 mg/dL High 0.67 - 1.17 mg/dL AO ADM SS Electrolyte Balance 4.0 mEq/L Normal 4.0 - 15 .0 mEq/L AO ADM SS Eosinophil, Absolute 0.1 103/mcL Normal 0.0 - 0 .7 10^3/mcL AO Workflow SS Eosinophils/100 WBC (Bld) 3.7 % Normal 0.0 - 6.0 % AO Workflow SS Erythrocyte distribution width (RBC) [Ratio] 14.0 % Normal 11.5 - 15.5 % AO Workflow SS Estimated Glomerular Filtration Rate 34 ml/min/1.73sqm Invalid Interpretation Code AO Chemistry S Comment on above: Interpretive Data: Stages of Chronic Kidney Disease (CKD) Stage Description eGFR(ml/min/1.73 sq.m.) CKD 1 Normal kidney function or >=90 normal kindney function with possible kidney damage (ex. Proteinuria) CKD 2 Kidney damage with mild loss 60-89 of kidney function CKD 3a Mild to moderate loss of kidney 45-59 function CKD 3b Moderate to severe loss of 30-44 of kindey function CKD 4 Severe loss of kidney function 15-29 CKD 5 Kidney failure <15 Note: (go live 2024) the eGFR calculation was updated to the 2020 CKD-EPI creatinine equation without a race factor to calculate the eGFR results. Ferritin [Mass/Vol] 463.0 ng/mL High 26.0 - 3 88.0 ng/mL AO ADM SS Globulin 3.2 G/dL Normal 2.7 - 4.4 G/dL AO ADM SS Glucose [Mass/Vol] 102 mg/dL Normal 83 - 110 mg/dL AO ADM SS Hematocrit (Bld) [Volume fraction] 33.5 % Low 40.0 - 52.0 % AO Workflow SS Hemoglobin (Bld) [Mass/Vol] 11.6 G/dL Low 13.0 - 17.5 G/dL AO Workflow SS Iron [Mass/Vol] 116 ug/dL Normal 65 - 175 mcg/dL AO ADM SS Iron binding capacity [Mass/Vol] 233 mcg/dL Low 250 - 450 mcg/dL AO ADM SS Lymphocytes (Bld) [#/Vol] 0.7 103/mcL Low 0.9 - 4.3 10^3/mcL AO Workflow SS Lymphocytes/100 WBC (Bld) 20.8 % Normal 20.0 - 40.0 % AO Workflow SS Magnesium [Mass/Vol] 1.8 mg/dL Normal 1.8 - 2 .4 mg/dL AO ADM SS MCH (RBC) [Entitic mass] 34.6 pg High 27.0 - 33.0 pg AO Workflow SS MCHC 34.6 G/dL Normal 32.0 - 36.0 G/dL AO Workflow SS MCV (RBC) [Entitic vol] 99.8 fL Normal 81.0 - 100.0 fL AO Workflow SS Monocytes (Bld) [#/Vol] 0.3 103/mcL Normal 0.1 - 1.4 10^3/mcL AO Workflow SS Monocytes/100 WBC (Bld) 8.9 % Normal 2.0 - 13.0 % AO Workflow SS Neutrophils (Bld) [#/Vol] 2.3 103/mcL Normal 2.3 - 8.1 10^3/mcL AO Workflow SS Neutrophils/100 WBC (Bld) 66.2 % Normal 50.0 - 75.0 % AO Workflow SS Parathyrin.intact [Mass/Vol] 45.3 pg/mL Normal 18.5 - 88.0 pg/mL AH ADM SS Phosphate [Mass/Vol] 2.7 mg/dL Normal 2.3 - 4 .1 mg/dL AO ADM SS Platelet mean volume (Bld) [Entitic vol] 6.4 fL Normal 6.4 - 10.5 fL AO Workflow SS Platelets (Bld) [#/Vol] 178 103/mcL Normal 150 - 450 10^3/mcL AO Workflow SS Potassium [Moles/Vol] 4.3 mmol/L Normal 3.5 - 5.1 mmol/L AO ADM SS Protein [Mass/Vol] 6.6 G/dL Normal 6.4 - 8.2 G/dL AO ADM SS RBC (Bld) [#/Vol] 3.35 106/mcL Low 4.50 - 6.0 0 10^6/mcL AO Workflow SS Sodium [Moles/Vol] 139 mmol/L Normal 136 - 145 mmol/L AO ADM SS Urea nitrogen [Mass/Vol] 28 mg/dL High 7 - 18 mg/dL AO ADM SS Urea nitrogen/Creatinine [Mass ratio] 14 ratio Normal 7 - 27 ratio AO ADM SS WBC (Bld) [#/Vol] 3.4 103/mcL Low 4.5 - 10.8 10^3/mcL AO Workflow SS MGon 11-07-2024 Magnesium [Mass/Vol] 1.8 mg/dL Normal 1.8-2.4 [facility] Comment on above: Performed By: #### A DIFF, GFR, A1C, CBC, CMP, LIPID, VIDH, [id number], ANEU #### [address] [address] #### PTH #### [place] [address] PHOSon 11-07-2024 Phosphate [Mass/Vol] 2.7 mg/dL Normal 2.3-4.1 [facility] Comment on above: Performed By: #### A DIFF, GFR, A1C, CBC, CMP, LIPID, VIDH, [id number], ANEU #### [address] [address] #### PTH #### [address] [address] PTHon 11-07-2024 PTH, Intact 45.3 pg/mL Normal 18.5-88.0 [facility] Comment on above: Performed By: #### A DIFF, GFR, A1C, CBC, CMP, LIPID, VIDH, [id number], ANEU #### [address] [address] #### PTH #### [address] [address] .Auto Diffon 10-18-2024 Basophil, Absolute 0.0 10 3/mcL Normal 0.0-0.3 [facility] Comment on above: Performed By: #### A DIFF, GFR, A1C, CBC, CMP, LIPID, VIDH, [id number], ANEU #### [address] [address] #### PTH #### [address] [address] Basophils/100 WBC (Bld) 0.1 % Normal 0.0-2.5 [facility] Comment on above: Performed By: #### A DIFF, GFR, A1C, CBC, CMP, LIPID, VIDH, [id number], ANEU #### [address] [address] #### PTH #### [address] [address] Eosinophil, Absolute 0.0 10 3/mcL Normal 0.0-0.7 [facility] Comment on above: Performed By: #### A DIFF, GFR, A1C, CBC, CMP, LIPID, VIDH, [id number], ANEU #### [address] [address] #### PTH #### [address] [address] Eosinophils/100 WBC (Bld) 0.1 % Normal 0.0-6.0 [facility] Comment on above: Performed By: #### A DIFF, GFR, A1C, CBC, CMP, LIPID, VIDH, [id number], ANEU #### [address] [address] #### PTH #### [address] [address] Lymphocyte, Absolute 0.8 10 3/mcL Low 0.9-4.3 [facility] Comment on above: Performed By: #### A DIFF, GFR, A1C, CBC, CMP, LIPID, VIDH, [id number], ANEU #### [address] [address] #### PTH #### [address] [address] Lymphocytes/100 WBC (Bld) 8.1 % Low 20.0-40.0 [facility] Comment on above: Performed By: #### A DIFF, GFR, A1C, CBC, CMP, LIPID, VIDH, [id number], ANEU #### [address] [address] #### PTH #### [address] [address] Monocyte, Absolute 1.0 10 3/mcL Normal 0.1-1.4 [facility] Comment on above: Performed By: #### A DIFF, GFR, A1C, CBC, CMP, LIPID, VIDH, [id number], ANEU #### [address] [address] #### PTH #### [address] [address] Monocytes/100 WBC (Bld) 11.3 % Normal 2.0-13.0 [facility] Comment on above: Performed By: #### A DIFF, GFR, A1C, CBC, CMP, LIPID, VIDH, [id number], ANEU #### [address] [address] #### PTH #### [address] [address] Neutrophils/100 WBC (Bld) 80.4 % High 50.0-75.0 [facility] Comment on above: Performed By: #### A DIFF, GFR, A1C, CBC, CMP, LIPID, VIDH, [id number], ANEU #### [address] [address] #### PTH #### [address] [address] .GFRon 10-18-2024 Estimated Glomerular Filtration Rate 16 ml/min/1.73sqm Normal [facility] Comment on above: Result Comment: Stages of Chronic Kidney Disease (CKD) Stage Description eGFR(ml/min/1.73 sq.m.) CKD 1 Normal kidney function or >=90 normal kindney function with possible kidney damage (ex. Proteinuria) CKD 2 Kidney damage with mild loss 60-89 of kidney function CKD 3a Mild to moderate loss of kidney 45-59 function CKD 3b Moderate to severe loss of 30-44 of kindey function CKD 4 Severe loss of kidney function 15-29 CKD 5 Kidney failure <15 Note: (go live 2024) the eGFR calculation was updated to the 2020 CKD-EPI creatinine equation without a race factor to calculate the eGFR results. Performed By: #### A DIFF, GFR, A1C, CBC, CMP, LIPID, VIDH, [id number], ANEU #### [address] [address] #### PTH #### [address] [address] .NEUABSon 10-18-2024 Neutrophil, Absolute 7.4 10 3/mcL Normal 2.3-8.1 [facility] Comment on above: Performed By: #### A DIFF, GFR, A1C, CBC, CMP, LIPID, VIDH, [id number], ANEU #### [place] [address] #### PTH #### [address] [address] BMPon 10-18-2024 BUN/Creatinine Ratio 11 ratio Normal 7-27 [facility] Comment on above: Performed By: #### A DIFF, GFR, A1C, CBC, CMP, LIPID, VIDH, [id number], ANEU #### [address] [address] #### PTH #### [address] [address] Calcium [Mass/Vol] 9.3 mg/dL Normal 8.4-10.2 [facility] Comment on above: Performed By: #### A DIFF, GFR, A1C, CBC, CMP, LIPID, VIDH, [id number], ANEU #### [address] [address] #### PTH #### [address] [address] Chloride [Moles/Vol] 95 mmol/L Low 98-107 [facility] Comment on above: Performed By: #### A DIFF, GFR, A1C, CBC, CMP, LIPID, VIDH, [id number], ANEU #### [place] [address] #### PTH #### [address] [address] CO2 [Moles/Vol] 25 mmol/L Normal 23-31 [facility] Comment on above: Performed By: #### A DIFF, GFR, A1C, CBC, CMP, LIPID, VIDH, [id number], ANEU #### [address] [address] #### PTH #### [address] [address] Creatinine [Mass/Vol] 3.67 mg/dL High 0.67-1.17 [facility] Comment on above: Performed By: #### A DIFF, GFR, A1C, CBC, CMP, LIPID, VIDH, [id number], ANEU #### [address] [address] #### PTH #### [address] [address] Electrolyte Balance 10.0 mEq/L Normal 4.0-15.0 [facility] Comment on above: Performed By: #### A DIFF, GFR, A1C, CBC, CMP, LIPID, VIDH, [id number], ANEU #### [address] [address] #### PTH #### [address] [address] Glucose [Mass/Vol] 109 mg/dL Normal 83-110 [facility] Comment on above: Performed By: #### A DIFF, GFR, A1C, CBC, CMP, LIPID, VIDH, [id number], ANEU #### [address] [address] #### PTH #### [address] [address] Potassium [Moles/Vol] 4.6 mmol/L Normal 3.5-5.1 [facility] Comment on above: Performed By: #### A DIFF, GFR, A1C, CBC, CMP, LIPID, VIDH, [id number], ANEU #### [address] [address] #### PTH #### [address] [address] Sodium [Moles/Vol] 130 mmol/L Low 136-145 [facility] Comment on above: Performed By: #### A DIFF, GFR, A1C, CBC, CMP, LIPID, VIDH, [id number], ANEU #### [address] [address] #### PTH #### [address] [address] Urea nitrogen [Mass/Vol] 39 mg/dL High 7-18 [facility] Comment on above: Performed By: #### A DIFF, GFR, A1C, CBC, CMP, LIPID, VIDH, [id number], ANEU #### [address] [address] #### PTH #### [place] [address] CBCon 10-18-2024 Erythrocyte distribution width (RBC) [Ratio] 14.5 % Normal 11.5-15.5 [facility] Comment on above: Performed By: #### A DIFF, GFR, A1C, CBC, CMP, LIPID, VIDH, [id number], ANEU #### [address] [address] #### PTH #### [address] [address] Hematocrit (Bld) [Volume fraction] 35.7 % Low 40.0-52.0 [facility] Comment on above: Performed By: #### A DIFF, GFR, A1C, CBC, CMP, LIPID, VIDH, [id number], ANEU #### [address] [address] #### PTH #### [place] [address] Hgb 12.5 G/dL Low 13.0-17.5 [facility] Comment on above: Performed By: #### A DIFF, GFR, A1C, CBC, CMP, LIPID, VIDH, [id number], ANEU #### [place] [address] #### PTH #### [address] [address] MCH (RBC) [Entitic mass] 34.9 pg High 27.0-33.0 [facility] Comment on above: Performed By: #### A DIFF, GFR, A1C, CBC, CMP, LIPID, VIDH, [id number], ANEU #### [place] [address] #### PTH #### [place] [address] MCHC 35.0 G/dL Normal 32.0-36.0 [facility] Comment on above: Performed By: #### A DIFF, GFR, A1C, CBC, CMP, LIPID, VIDH, [id number], ANEU #### [place] [address] #### PTH #### [place] [address] MCV (RBC) [Entitic vol] 100.0 fL Normal 81.0-100.0 [facility] Comment on above: Performed By: #### A DIFF, GFR, A1C, CBC, CMP, LIPID, VIDH, [id number], ANEU #### [place] [address] #### PTH #### [place] [address] Platelet 143 10 3/mcL Low 150-450 [facility] Comment on above: Performed By: #### A DIFF, GFR, A1C, CBC, CMP, LIPID, VIDH, [id number], ANEU #### [place] [address] #### PTH #### [place] [address] Platelet mean volume (Bld) [Entitic vol] 7.1 fL Normal 6.4-10.5 [facility] Comment on above: Performed By: #### A DIFF, GFR, A1C, CBC, CMP, LIPID, VIDH, [id number], ANEU #### [address] [address] #### PTH #### [place] [address] RBC 3.58 10 6/mcL Low 4.50-6.00 [facility] Comment on above: Performed By: #### A DIFF, GFR, A1C, CBC, CMP, LIPID, VIDH, [id number], ANEU #### [address] [address] #### PTH #### [facility] [address] [address] WBC 9.3 10 3/mcL Normal 4.5-10.8 [facility] Comment on above: Performed By: #### A DIFF, GFR, A1C, CBC, CMP, LIPID, VIDH, [id number], ANEU #### [address] [address] #### PTH #### [place] [address] LABORATORYOrdered By: SYSTEM SYSTEM on 10-18-2024 Basophils (Bld) [#/Vol] 0.0 103/mcL Normal 0.0 - 0.3 10^3/mcL AO Workflow SS Basophils/100 WBC (Bld) 0.1 % Normal 0.0 - 2.5 % AO Workflow SS Calcium [Mass/Vol] 9.3 mg/dL Normal 8.4 - 10. 2 mg/dL AO ADM SS Chloride [Moles/Vol] 95 mmol/L Low 98 - 10 7 mmol/L AO ADM SS CO2 [Moles/Vol] 25 mmol/L Normal 23 - 31 mmol/L AO ADM SS Creatinine [Mass/Vol] 3.67 mg/dL High 0.67 - 1.17 mg/dL AO ADM SS Electrolyte Balance 10.0 mEq/L Normal 4.0 - 15 .0 mEq/L AO ADM SS Eosinophil, Absolute 0.0 103/mcL Normal 0.0 - 0 .7 10^3/mcL AO Workflow SS Eosinophils/100 WBC (Bld) 0.1 % Normal 0.0 - 6.0 % AO Workflow SS Erythrocyte distribution width (RBC) [Ratio] 14.5 % Normal 11.5 - 15.5 % AO Workflow SS Estimated Glomerular Filtration Rate 16 ml/min/1.73sqm Invalid Interpretation Code AO Chemistry S Comment on above: Interpretive Data: Stages of Chronic Kidney Disease (CKD) Stage Description eGFR(ml/min/1.73 sq.m.) CKD 1 Normal kidney function or >=90 normal kindney function with possible kidney damage (ex. Proteinuria) CKD 2 Kidney damage with mild loss 60-89 of kidney function CKD 3a Mild to moderate loss of kidney 45-59 function CKD 3b Moderate to severe loss of 30-44 of kindey function CKD 4 Severe loss of kidney function 15-29 CKD 5 Kidney failure <15 Note: (go live 2024) the eGFR calculation was updated to the 2020 CKD-EPI creatinine equation without a race factor to calculate the eGFR results. Glucose [Mass/Vol] 109 mg/dL Normal 83 - 110 mg/dL AO ADM SS Hematocrit (Bld) [Volume fraction] 35.7 % Low 40.0 - 52.0 % AO Workflow SS Hemoglobin (Bld) [Mass/Vol] 12.5 G/dL Low 13.0 - 17.5 G/dL AO Workflow SS Lymphocytes (Bld) [#/Vol] 0.8 103/mcL Low 0.9 - 4.3 10^3/mcL AO Workflow SS Lymphocytes/100 WBC (Bld) 8.1 % Low 20.0 - 40.0 % AO Workflow SS MCH (RBC) [Entitic mass] 34.9 pg High 27.0 - 33.0 pg AO Workflow SS MCHC 35.0 G/dL Normal 32.0 - 36.0 G/dL AO Workflow SS MCV (RBC) [Entitic vol] 100.0 fL Normal 81.0 - 100.0 fL AO Workflow SS Monocytes (Bld) [#/Vol] 1.0 103/mcL Normal 0.1 - 1.4 10^3/mcL AO Workflow SS Monocytes/100 WBC (Bld) 11.3 % Normal 2.0 - 13.0 % AO Workflow SS Neutrophils (Bld) [#/Vol] 7.4 103/mcL Normal 2.3 - 8.1 10^3/mcL AO Workflow SS Neutrophils/100 WBC (Bld) 80.4 % High 50.0 - 75.0 % AO Workflow SS Platelet mean volume (Bld) [Entitic vol] 7.1 fL Normal 6.4 - 10.5 fL AO Workflow SS Platelets (Bld) [#/Vol] 143 103/mcL Low 150 - 450 10^3/mcL AO Workflow SS Potassium [Moles/Vol] 4.6 mmol/L Normal 3.5 - 5.1 mmol/L AO ADM SS RBC (Bld) [#/Vol] 3.58 106/mcL Low 4.50 - 6.0 0 10^6/mcL AO Workflow SS Sodium [Moles/Vol] 130 mmol/L Low 136 - 145 mmol/L AO ADM SS Urea nitrogen [Mass/Vol] 39 mg/dL High 7 - 18 mg/dL AO ADM SS Urea nitrogen/Creatinine [Mass ratio] 11 ratio Normal 7 - 27 ratio AO ADM SS WBC (Bld) [#/Vol] 9.3 103/mcL Normal 4.5 - 10.8 10^3/mcL AO Workflow SS CT ABDOMEN/PELVIS W/CONTRAST on 10-17-2024 CT ABDOMEN/PELVIS W/CONTRAST ORIGINAL EXAMINATION: CT OF THE ABDOMEN AND PELVIS WITH CONTRAST10/17/2024 3:27 pm TECHNIQUE: CT of the abdomen and pelvis was performed with the administration of intravenous contrast. Multiplanar reformatted images are provided for review. Automated exposure control, iterative reconstruction, and/or weight based adjustment of the mA/kV was utilized to reduce the radiation dose to as low as reasonably achievable. COMPARISON: 06/30/2024 HISTORY: ORDERING SYSTEM PROVIDED HISTORY: Reason for Exam: see comments RLQ PAIN & CONSTIPATION SINCE THURSDAY. POSSIBLE BLOCKAGE. FINDINGS: Cardiomegaly and TAVR noted. Atherosclerosis seen of the visualized coronary arteries. Atelectasis/scarring seen in the lung bases. The liver, spleen, adrenal glands, and pancreas are within normal limits. No filling defects seen in the gallbladder. A delayed left nephrogram noted. Small renal calculi seen. Left hydroureteronephrosis is identified. The pelvis is obscured by artifacts from the bilateral hip arthroplasties. There is likely a small calculus in the distal 3rd of the left ureter, image 116. Small nonobstructing right renal calculi visible. The large and small bowel demonstrate no obstruction. Scattered colonic diverticula noted. No free intraperitoneal fluid or gas is identified. The aorta is normal in caliber. There is moderate atherosclerosis of the larger arteries. There is no lymphadenopathy. No filling defects seen in the urinary bladder. There is no acute fracture or aggressive osseous lesion. Moderate T12 compression deformity is believed to be chronic. Bilateral hip arthroplasties. Degenerative changes seen of the hips and spine. IMPRESSION: 1. Left hydroureteronephrosis with a delayed left nephrogram. There is likely a small calculus in the distal 3rd of the left ureter. The pelvis/distal ureter is obscured by artifacts from the bilateral hip arthroplasties. 2. Other incidental findings. Interpreted by: Romeo Ardon MD Preliminary Report By: Romeo Ardon MD Electronically signed By Romeo Ardon MD Dictated Date: 10/17/2024 3:31:35 PM Prelim Date: 10/17/2024 3:37:12 PM Sign Date: 10/17/2024 3:37:12 PM Ordering Provider: CHI Ayon [facility] LABORATORYOrdered By: SYSTEM SYSTEM on 08-23-2024 Prostate specific Ag [Mass/Vol] 7.30 ng/mL High 0.00 - 4.00 ng/mL AO ADM SS PSAon 08-23-2024 Prostate Specific Antigen 7.30 ng/mL High 0.00-4.00 [facility] Comment on above: Performed By: #### A DIFF, GFR, A1C, CBC, CMP, LIPID, VIDH, [id number], ANEU #### [facility] [address], [place] [address] #### PTH #### [facility] [address] [address] CT ANGIOGRAPHY RENAL ARTERIE S W/PPon 07-07-2024 CT ANGIOGRAPHY RENAL ARTERIES W/PP ORIGINAL EXAMINATION: CTA OF THE ABDOMEN WITH CONTRAST06/30/2024 11:33 am TECHNIQUE: Multiplanar and 3D reconstructed images were generated, reviewed and manipulated on a separate workstation. This exam was performed according to our departmental dose-optimization program which includes automated exposure control, adjustment of the mA and/or kVp according to patient size and/or use of iterative reconstruction technique where applicable. DEFINITIONS Stenosis Severity Grading: Normal: 0% stenosis Minimal: <25% stenosis Mild: 25-49% stenosis Moderate: 50-69% stenosis Severe: 70-99% stenosis Occluded (100%) Abbreviations: Ao: Aorta; CA: Celiac artery; RA: Renal artery; SMA: Superior mesenteric artery; SAM: Inferior mesenteric artery; MARCOS: Common iliac artery; EIA: External iliac artery; IIA: Internal iliac artery; MILITARY TECHNOLOGY SPECIALIST: Common femoral artery; RT: Right; LT: Left COMPARISON: CTA TAVR planning 06/10/2023. HISTORY: ORDERING SYSTEM PROVIDED HISTORY: Reason for Exam: ???to evaluate for renal artery stenosis, renal scarring or lesions???that could contribute to secondary causes of uncontrolled hypertension FINDINGS: Patient motion obscures detail. VASCULAR: Suprarenal Ao: Minimal mixed atherosclerosis.No aneurysm. CA: Challenging evaluation of stenosis given patient motion, however at least dzff-[id number] stenosis due to noncalcified plaque at the level of the takeoff. SMA: No severe stenosis. RT RA: Single renal artery.Calcified atherosclerotic disease at the takeoff the right renal artery causes mild stenosis. No aneurysm, poststenotic dilatation, or fusiform ectasia to suggest fibromuscular dysplasia. LT RA: Single renal artery.Calcified atherosclerotic disease at the takeoff of the left renal artery causes mild stenosis. No aneurysm, poststenotic dilatation, or fusiform ectasia to suggest fibromuscular dysplasia. Infrarenal Ao: Mixed calcified and noncalcified atherosclerotic disease with areas of irregular/ulcerated plaque in the infrarenal abdominal aorta.No aneurysm. SAM: No severe stenosis. RT MARCOS: The right common iliac arteries partially visualized, however measures up to 1.9 cm. NONVASCULAR: LUNG BASES: Significant respiratory motion limits evaluation of the lung parenchyma. LIVER:Unremarkable. BILIARY: No extra or intrahepatic duct dilatation. GALLBLADDER: Unremarkable. SPLEEN: Not enlarged. No lesions. RT ADRENAL: Unremarkable. LT ADRENAL: Unremarkable. PANCREAS: Unremarkable. ASCITES: None RT KIDNEY: Normal enhancement. No hydronephrosis. Dystrophic renal parenchymal calcification in the upper pole. LT KIDNEY: Normal enhancement. No hydronephrosis. Scattered parenchymal scarring. Likely subcentimeter renal cortical cyst in the upper pole. GI: No obstruction. No inflammatory change. No free air. LYMPHATIC: No abdominal adenopathy. BONES: Stable anterior wedge compression deformity of T12. Decreased osseous mineralization. Degenerative changes of the visualized spine. IMPRESSION: Decreased sensitivity given significant patient motion. ARTERIAL: 1. Calcified atherosclerotic disease causes mild bilateral renal artery stenosis at the takeoffs. No aneurysm, poststenotic dilatation, or evidence to suggest fibromuscular dysplasia. 2. RT: Partially visualized aneurysmal right MARCOS, as above. 3. Ao: No AAA. Irregular/ulcerated plaque in the infrarenal abdominal aorta. NON-ARTERIAL: 1. Remote anterior wedge compression deformity of T12. I have personally reviewed the images of this examination, agree with resident's findings and interpretation. Interpreted by: Derick Madsen DO Preliminary Report By: Too Helm Electronically signed By Derick Madsen DO Dictated Date: 07/07/2024 12:31:34 PM Prelim Date: 07/07/2024 3:05:37 PM Sign Date: 07/07/2024 3:05:37 PM Ordering Provider: CHI DURAN [facility] .GFRon 06-30-2024 GFR 39 ml/min/1.73sqm [facility] Comment on above: Result Comment: GFR Population mean for , Non- Americans Ages 20-29 = 116 mL/min/1.73 sq.m. Ages 30-39 = 107 mL/min/1.73 sq.m. Ages 40-49 = 99 mL/min/1.73 sq.m. Ages 50-59 = 93 mL/min/1.73 sq.m. Ages 60-69 = 85 mL/min/1.73 sq.m. Ages 70+ = 75 mL/min/1.73 sq.m. Chronic Kidney Disease: Less than 60 mL/min/1.73 square meters End Stage Renal Disease: Less than 15 mL/min/1.73 square meters Performed By: #### A DIFF, GFR, A1C, CBC, CMP, LIPID, VIDH, [id number], ANEU #### [facility] [address], [place] [address] #### PTH #### [facility] [address] [place] [address] GFR Non- 32 ml/min/1.73sqm [facility] Comment on above: Result Comment: GFR Population mean for , Non- Americans Ages 20-29 = 116 mL/min/1.73 sq.m. Ages 30-39 = 107 mL/min/1.73 sq.m. Ages 40-49 = 99 mL/min/1.73 sq.m. Ages 50-59 = 93 mL/min/1.73 sq.m. Ages 60-69 = 85 mL/min/1.73 sq.m. Ages 70+ = 75 mL/min/1.73 sq.m. Chronic Kidney Disease: Less than 60 mL/min/1.73 square meters End Stage Renal Disease: Less than 15 mL/min/1.73 square meters Performed By: #### A DIFF, GFR, A1C, CBC, CMP, LIPID, VIDH, [id number], ANEU #### [address] [address] #### PTH #### [address] [address] CREon 06-30-2024 Creatinine [Mass/Vol] 2.02 mg/dL High 0.70-1.30 [facility] Comment on above: Order Comment: faxed to [phone]. 06/30/2024 13:21:40 EST AH/ALSfaxed to [phone]. 06/30/2024 13:40:47 EST AH/ALS Result Comment: Test ing performed on Siemens Dimension EXL analyzer using a modified kinetic Nathalie technique. Performed By: #### A DIFF, GFR, A1C, CBC, CMP, LIPID, VIDH, [id number], ANEU #### [address] [address] #### PTH #### [place] [address] LABORATORYOrdered By: SYSTEM SYSTEM on 06-30-2024 Creatinine [Mass/Vol] 2.02 mg/dL High 0.70 - 1.30 mg/dL AO ADM SS Comment on above: Interpretive Data: T esting performed on Siemens Dimension EXL analyzer using a modified kinetic Nathalie technique. GFR/1.73 sq M.predicted among blacks MDRD (S/P/Bld) [Vol rate/Area] 39 ml/min/1.73sqm Invalid Interpretation Code AO Chemistry S Comment on above: Interpretive Data: GFR Population mean for , Non- Americans Ages 20-29 = 116 mL/min/1.73 sq.m. Ages 30-39 = 107 mL/min/1.73 sq.m. Ages 40-49 = 99 mL/min/1.73 sq.m. Ages 50-59 = 93 mL/min/1.73 sq.m. Ages 60-69 = 85 mL/min/1.73 sq.m. Ages 70+ = 75 mL/min/1.73 sq.m. Chronic Kidney Disease: Less than 60 mL/min/1.73 square meters End Stage Renal Disease: Less than 15 mL/min/1.73 square meters GFR/1.73 sq M.predicted among non-blacks MDRD (S/P/Bld) [Vol rate/Area] 32 ml/min/1.73sqm Invalid Interpretation Code AO Chemistry S Comment on above: Interpretive Data: GFR Population mean for , Non- Americans Ages 20-29 = 116 mL/min/1.73 sq.m. Ages 30-39 = 107 mL/min/1.73 sq.m. Ages 40-49 = 99 mL/min/1.73 sq.m. Ages 50-59 = 93 mL/min/1.73 sq.m. Ages 60-69 = 85 mL/min/1.73 sq.m. Ages 70+ = 75 mL/min/1.73 sq.m. Chronic Kidney Disease: Less than 60 mL/min/1.73 square meters End Stage Renal Disease: Less than 15 mL/min/1.73 square meters PSAFon 06-11-2024 % Free PSA 14.4 % Normal [facility] Comment on above: Result Comment: The table below lists the probability of prostate cancer for men with non-suspicious JANET results and total PSA between 4 and 10 ng/mL, by patient age (Nichelle et al, SHAYAN 1998, 279:1542). % Free PSA 50-64 yr 65-75 yr 0.00-10.00% 56% 55% 10.01-15.00% 24% 35% 15.01-20.00% 17% 23% 20.01-25.00% 10% 20% >25.00% 5% 9% Please note: Nichelle et al did not make specific recommendations regarding the use of percent free PSA for any other population of men. Performed At: [facility] [id number] Malaika Killian PhD Ph:[phone] Performed By: #### A DIFF, GFR, A1C, CBC, CMP, LIPID, VIDH, [id number], ANEU #### [address] [address] #### PTH #### [address] [address] PSA Free 0.79 ng/mL Normal N/A [facility] Comment on above: Result Comment: Deepak TAYLORIA methodology. Performed By: #### A DIFF, GFR, A1C, CBC, CMP, LIPID, VIDH, [id number], ANEU #### [address] [address] #### PTH #### [address] [address] .Auto Diffon 06-09-2024 Basophil, Absolute 0.0 10 3/mcL Normal 0.0-0.2 [facility] Comment on above: Performed By: #### A DIFF, GFR, A1C, CBC, CMP, LIPID, VIDH, [id number], ANEU #### [address] [address] #### PTH #### [address] [address] Basophils/100 WBC (Bld) 0.4 % Normal 0.0-2.5 [facility] Comment on above: Performed By: #### A DIFF, GFR, A1C, CBC, CMP, LIPID, VIDH, [id number], ANEU #### [address] [address] #### PTH #### [address] [address] Eosinophil, Absolute 0.2 10 3/mcL Normal 0.0-0.7 [facility] Comment on above: Performed By: #### A DIFF, GFR, A1C, CBC, CMP, LIPID, VIDH, [id number], ANEU #### [address] [address] #### PTH #### [address] [address] Eosinophils/100 WBC (Bld) 4.5 % Normal 0.0-7.0 [facility] Comment on above: Performed By: #### A DIFF, GFR, A1C, CBC, CMP, LIPID, VIDH, [id number], ANEU #### [address] [address] #### PTH #### [address] [address] Lymphocyte, Absolute 1.0 10 3/mcL Normal 0.9-4.3 [facility] Comment on above: Performed By: #### A DIFF, GFR, A1C, CBC, CMP, LIPID, VIDH, [id number], ANEU #### [address] [address] #### PTH #### [address] [address] Lymphocytes/100 WBC (Bld) 25.9 % Normal 20.0-40.0 [facility] Comment on above: Performed By: #### A DIFF, GFR, A1C, CBC, CMP, LIPID, VIDH, [id number], ANEU #### [address] [address] #### PTH #### [address] [address] Monocyte, Absolute 0.4 10 3/mcL Normal 0.1-1.4 [facility] Comment on above: Performed By: #### A DIFF, GFR, A1C, CBC, CMP, LIPID, VIDH, [id number], ANEU #### [address] [address] #### PTH #### [address] [address] Monocytes/100 WBC (Bld) 8.8 % Normal 2.0-13.0 [facility] Comment on above: Performed By: #### A DIFF, GFR, A1C, CBC, CMP, LIPID, VIDH, [id number], ANEU #### [address] [address] #### PTH #### [address] [address] Neutrophils/100 WBC (Bld) 60.4 % Normal 50.0-75.0 [facility] Comment on above: Performed By: #### A DIFF, GFR, A1C, CBC, CMP, LIPID, VIDH, [id number], ANEU #### [place] [address] [place], [place] [address] #### PTH #### [address] [address] .GFRon 06-09-2024 GFR 38 ml/min/1.73sqm Normal [facility] Comment on above: Result Comment: GFR Population mean for , Non- Americans Ages 20-29 = 116 mL/min/1.73 sq.m. Ages 30-39 = 107 mL/min/1.73 sq.m. Ages 40-49 = 99 mL/min/1.73 sq.m. Ages 50-59 = 93 mL/min/1.73 sq.m. Ages 60-69 = 85 mL/min/1.73 sq.m. Ages 70+ = 75 mL/min/1.73 sq.m. Chronic Kidney Disease: Less than 60 mL/min/1.73 square meters End Stage Renal Disease: Less than 15 mL/min/1.73 square meters Performed By: #### A DIFF, GFR, A1C, CBC, CMP, LIPID, VIDH, [id number], ANEU #### [address] [address] #### PTH #### [address] [address] GFR Non- 31 ml/min/1.73sqm Normal [facility] Comment on above: Result Comment: GFR Population mean for , Non- Americans Ages 20-29 = 116 mL/min/1.73 sq.m. Ages 30-39 = 107 mL/min/1.73 sq.m. Ages 40-49 = 99 mL/min/1.73 sq.m. Ages 50-59 = 93 mL/min/1.73 sq.m. Ages 60-69 = 85 mL/min/1.73 sq.m. Ages 70+ = 75 mL/min/1.73 sq.m. Chronic Kidney Disease: Less than 60 mL/min/1.73 square meters End Stage Renal Disease: Less than 15 mL/min/1.73 square meters Performed By: #### A DIFF, GFR, A1C, CBC, CMP, LIPID, VIDH, [id number], ANEU #### [address] [address] #### PTH #### [address] [address] .NEUABSon 06-09-2024 Neutrophil, Absolute 2.4 10 3/mcL Normal 2.3-8.1 [facility] Comment on above: Performed By: #### A DIFF, GFR, A1C, CBC, CMP, LIPID, VIDH, [id number], ANEU #### [address] [address] #### PTH #### [place] [address] A1Con 06-09-2024 Glucose [Mass/Vol] 103 mg/dL Normal [facility] Comment on above: Result Comment: Nalini mated Average Glucose calculated by equation ((28.7xA1C)-46.7) Estimated average glucose (eAG) is a calculated value from Hemoglobin A1C and is in store marketing representative of the average blood glucose level in the last 2-3 month period. Normal range: less than 114 mg/dL Performed By: #### A DIFF, GFR, A1C, CBC, CMP, LIPID, VIDH, [id number], ANEU #### [address] [address] #### PTH #### [place] [address] HbA1c (Bld) [Mass fraction] 5.2 % Normal 4.3-6.4 [facility] Comment on above: Performed By: #### A DIFF, GFR, A1C, CBC, CMP, LIPID, VIDH, [id number], ANEU #### [address] [address] #### PTH #### [place] [address] CBCon 06-09-2024 Erythrocyte distribution width (RBC) [Ratio] 13.5 % Normal 11.5-15.5 [facility] Comment on above: Performed By: #### A DIFF, GFR, A1C, CBC, CMP, LIPID, VIDH, [id number], ANEU #### [address] [address] #### PTH #### [address] [address] Hematocrit (Bld) [Volume fraction] 38.9 % Low 40.0-52.0 [facility] Comment on above: Performed By: #### A DIFF, GFR, A1C, CBC, CMP, LIPID, VIDH, [id number], ANEU #### [place] [address] #### PTH #### [place] [address] Hgb 13.3 G/dL Normal 13.0-17.5 [facility] Comment on above: Performed By: #### A DIFF, GFR, A1C, CBC, CMP, LIPID, VIDH, [id number], ANEU #### [address] [address] #### PTH #### [address] [address] MCH (RBC) [Entitic mass] 34.6 pg High 27.0-33.0 [facility] Comment on above: Performed By: #### A DIFF, GFR, A1C, CBC, CMP, LIPID, VIDH, [id number], ANEU #### [place] [address] #### PTH #### [place] [address] MCHC 34.2 G/dL Normal 32.0-36.0 [facility] Comment on above: Performed By: #### A DIFF, GFR, A1C, CBC, CMP, LIPID, VIDH, [id number], ANEU #### [address] [address] #### PTH #### [address] [address] MCV (RBC) [Entitic vol] 101.2 fL High 81.0-100.0 [facility] Comment on above: Performed By: #### A DIFF, GFR, A1C, CBC, CMP, LIPID, VIDH, [id number], ANEU #### [address] [address] #### PTH #### [place] [address] Platelet 145 10 3/mcL Low 150-450 [facility] Comment on above: Performed By: #### A DIFF, GFR, A1C, CBC, CMP, LIPID, VIDH, [id number], ANEU #### [place] [address] #### PTH #### [place] [address] Platelet mean volume (Bld) [Entitic vol] 7.0 fL Normal 6.4-10.5 [facility] Comment on above: Performed By: #### A DIFF, GFR, A1C, CBC, CMP, LIPID, VIDH, [id number], ANEU #### [place] [address] #### PTH #### [place] [address] RBC 3.84 10 6/mcL Low 4.50-6.00 [facility] Comment on above: Performed By: #### A DIFF, GFR, A1C, CBC, CMP, LIPID, VIDH, [id number], ANEU #### [place] [address] #### PTH #### [place] [address] WBC 4.0 10 3/mcL Low 4.5-10.8 [facility] Comment on above: Performed By: #### A DIFF, GFR, A1C, CBC, CMP, LIPID, VIDH, [id number], ANEU #### [place] [address] #### PTH #### [address] [address] CMPon 06-09-2024 Albumin Level 4.0 G/dL Normal 3.4-4.8 [facility] Comment on above: Performed By: #### A DIFF, GFR, A1C, CBC, CMP, LIPID, VIDH, [id number], ANEU #### [address] [address] #### PTH #### [address] [address] Albumin/Globulin [Mass ratio] 1.5 {ratio} Normal 1.1-2.5 [facility] Comment on above: Performed By: #### A DIFF, GFR, A1C, CBC, CMP, LIPID, VIDH, [id number], ANEU #### [address] [address] #### PTH #### [address] [address] ALP [Catalytic activity/Vol] 81 U/L Normal 40-135 [facility] Comment on above: Performed By: #### A DIFF, GFR, A1C, CBC, CMP, LIPID, VIDH, [id number], ANEU #### [address] [address] #### PTH #### [address] [address] ALT [Catalytic activity/Vol] 24 U/L Normal 16-63 [facility] Comment on above: Performed By: #### A DIFF, GFR, A1C, CBC, CMP, LIPID, VIDH, [id number], ANEU #### [address] [address] #### PTH #### [address] [address] AST [Catalytic activity/Vol] 15 U/L Normal 10-40 [facility] Comment on above: Performed By: #### A DIFF, GFR, A1C, CBC, CMP, LIPID, VIDH, [id number], ANEU #### [address] [address] #### PTH #### [address] [address] Bili Total 0.7 mg/dL Normal 0.2-1.0 [facility] Comment on above: Result Comment: Use of this assay is not recommended for patients undergoing treatment with eltrombopag due to the potential for falsely elevated results. Performed By: #### A DIFF, GFR, A1C, CBC, CMP, LIPID, VIDH, [id number], ANEU #### [address] [address] #### PTH #### [address] [address] BUN/Creatinine Ratio 13 ratio Normal 7-27 [facility] Comment on above: Performed By: #### A DIFF, GFR, A1C, CBC, CMP, LIPID, VIDH, [id number], ANEU #### [address] [address] #### PTH #### [address] [address] Calcium [Mass/Vol] 9.5 mg/dL Normal 8.4-10.2 [facility] Comment on above: Performed By: #### A DIFF, GFR, A1C, CBC, CMP, LIPID, VIDH, [id number], ANEU #### [address] [address] #### PTH #### [address] [address] Chloride [Moles/Vol] 105 mmol/L Normal 98-107 [facility] Comment on above: Performed By: #### A DIFF, GFR, A1C, CBC, CMP, LIPID, VIDH, [id number], ANEU #### [address] [address] #### PTH #### [address] [address] CO2 [Moles/Vol] 28 mmol/L Normal 23-31 [facility] Comment on above: Performed By: #### A DIFF, GFR, A1C, CBC, CMP, LIPID, VIDH, [id number], ANEU #### [address] [address] #### PTH #### [address] [address] Creatinine [Mass/Vol] 2.06 mg/dL High 0.70-1.30 [facility] Comment on above: Result Comment: Test ing performed on Siemens Dimension EXL analyzer using a modified kinetic Nathalie technique. Performed By: #### A DIFF, GFR, A1C, CBC, CMP, LIPID, VIDH, [id number], ANEU #### [address] [address] #### PTH #### [address] [address] Electrolyte Balance 9.0 mEq/L Normal 4.0-15.0 [facility] Comment on above: Performed By: #### A DIFF, GFR, A1C, CBC, CMP, LIPID, VIDH, [id number], ANEU #### [place] [address] #### PTH #### [address] [address] Globulin 2.7 G/dL Normal [facility] Comment on above: Performed By: #### A DIFF, GFR, A1C, CBC, CMP, LIPID, VIDH, [id number], ANEU #### [address] [address] #### PTH #### [address] [address] Glucose [Mass/Vol] 82 mg/dL Low 83-110 [facility] Comment on above: Performed By: #### A DIFF, GFR, A1C, CBC, CMP, LIPID, VIDH, [id number], ANEU #### [address] [address] #### PTH #### [address] [address] Potassium [Moles/Vol] 4.6 mmol/L Normal 3.5-5.1 [facility] Comment on above: Performed By: #### A DIFF, GFR, A1C, CBC, CMP, LIPID, VIDH, [id number], ANEU #### [address] [address] #### PTH #### [address] [address] Sodium [Moles/Vol] 142 mmol/L Normal 136-145 [facility] Comment on above: Performed By: #### A DIFF, GFR, A1C, CBC, CMP, LIPID, VIDH, [id number], ANEU #### [address] [address] #### PTH #### [address] [address] Total Protein 6.7 G/dL Normal 6.4-8.2 [facility] Comment on above: Performed By: #### A DIFF, GFR, A1C, CBC, CMP, LIPID, VIDH, [id number], ANEU #### [address] [address] #### PTH #### [address] [address] Urea nitrogen [Mass/Vol] 27 mg/dL High 7-18 [facility] Comment on above: Performed By: #### A DIFF, GFR, A1C, CBC, CMP, LIPID, VIDH, [id number], ANEU #### [address] [address] #### PTH #### [address] [address] LABORATORYOrdered By: LABCOR P CONTRIBUTOR_SYSTEM on 06-09-2024 % Free PSA (LC) 14.4 % Invalid Interpretation Code AO Sendouts SS Comment on above: Result Comment: The table below lists the probability of prostate cancer for men with non-suspicious JANET results and total PSA between 4 and 10 ng/mL, by patient age (Nichelle et al, SHAYAN 1998, 279:1542). % Free PSA 50-64 yr 65-75 yr 0.00-10.00% 56% 55% 10.01-15.00% 24% 35% 15.01-20.00% 17% 23% 20.01-25.00% 10% 20% >25.00% 5% 9% Please note: Nichelle et al did not make specific recommendations regarding the use of percent free PSA for any other population of men. Performed At: [facility] [id number] Malaika Killian PhD Ph:[phone] PSA Free (LC) 0.79 ng/mL Invalid Interpretation Code N/A AO Sendouts SS Comment on above: Result Comment: Deepak PARKINSON methodology. LABORATORYOrdered By: SYSTEM SYSTEM on 06-09-2024 25-hydroxyvitamin D3 [Mass/Vol] 45.1 ng/mL Invalid Interpretation Code AO ADM SS Comment on above: Interpretive Data: I nterpretive Values Based on Total 25(OH) Vitamin D: Deficient <20 ng/mL Insufficient 20 - <30 ng/mL Sufficient 30-100 ng/mL Albumin BCP dye [Mass/Vol] 4.0 G/dL Normal 3.4 - 4.8 G/dL AO ADM SS Albumin/Globulin [Mass ratio] 1.5 {ratio} Normal 1.1 - 2.5 ratio AO ADM SS ALP [Catalytic activity/Vol] 81 U/L Normal 40 - 135 U/L AO ADM SS ALT With P-5'-P [Catalytic activity/Vol] 24 U/L Normal 16 - 63 U/L AO ADM SS AST With P-5'-P [Catalytic activity/Vol] 15 U/L Normal 10 - 40 U/L AO ADM SS Basophils (Bld) [#/Vol] 0.0 103/mcL Normal 0.0 - 0.2 10^3/mcL AO Workflow SS Basophils/100 WBC (Bld) 0.4 % Normal 0.0 - 2.5 % AO Workflow SS Bilirubin [Mass/Vol] 0.7 mg/dL Normal 0.2 - 1 .0 mg/dL AO ADM SS Comment on above: Interpretive Data: U se of this assay is not recommended for patients undergoing treatment with eltrombopag due to the potential for falsely elevated results. Calcium [Mass/Vol] 9.5 mg/dL Normal 8.4 - 10. 2 mg/dL AO ADM SS Chloride [Moles/Vol] 105 mmol/L Normal 98 - 10 7 mmol/L AO ADM SS CO2 [Moles/Vol] 28 mmol/L Normal 23 - 31 mmol/L AO ADM SS Creatinine [Mass/Vol] 2.06 mg/dL High 0.70 - 1.30 mg/dL AO ADM SS Comment on above: Interpretive Data: T esting performed on Siemens Dimension EXL analyzer using a modified kinetic Nathalie technique. Electrolyte Balance 9.0 mEq/L Normal 4.0 - 15 .0 mEq/L AO ADM SS Eosinophil, Absolute 0.2 103/mcL Normal 0.0 - 0 .7 10^3/mcL AO Workflow SS Eosinophils/100 WBC (Bld) 4.5 % Normal 0.0 - 7.0 % AO Workflow SS Erythrocyte distribution width (RBC) [Ratio] 13.5 % Normal 11.5 - 15.5 % AO Workflow SS GFR/1.73 sq M.predicted among blacks MDRD (S/P/Bld) [Vol rate/Area] 38 ml/min/1.73sqm Invalid Interpretation Code AO Chemistry S Comment on above: Interpretive Data: GFR Population mean for , Non- Americans Ages 20-29 = 116 mL/min/1.73 sq.m. Ages 30-39 = 107 mL/min/1.73 sq.m. Ages 40-49 = 99 mL/min/1.73 sq.m. Ages 50-59 = 93 mL/min/1.73 sq.m. Ages 60-69 = 85 mL/min/1.73 sq.m. Ages 70+ = 75 mL/min/1.73 sq.m. Chronic Kidney Disease: Less than 60 mL/min/1.73 square meters End Stage Renal Disease: Less than 15 mL/min/1.73 square meters GFR/1.73 sq M.predicted among non-blacks MDRD (S/P/Bld) [Vol rate/Area] 31 ml/min/1.73sqm Invalid Interpretation Code AO Chemistry S Comment on above: Interpretive Data: GFR Population mean for , Non- Americans Ages 20-29 = 116 mL/min/1.73 sq.m. Ages 30-39 = 107 mL/min/1.73 sq.m. Ages 40-49 = 99 mL/min/1.73 sq.m. Ages 50-59 = 93 mL/min/1.73 sq.m. Ages 60-69 = 85 mL/min/1.73 sq.m. Ages 70+ = 75 mL/min/1.73 sq.m. Chronic Kidney Disease: Less than 60 mL/min/1.73 square meters End Stage Renal Disease: Less than 15 mL/min/1.73 square meters Globulin 2.7 G/dL Invalid Interpretation Code AO ADM SS Glucose [Mass/Vol] 82 mg/dL Low 83 - 110 mg/dL AO ADM SS Glucose [Mass/Vol] 103 mg/dL Invalid Interpretation Code AO Chemistry S Comment on above: Interpretive Data: E stimated average glucose (eAG) is a calculated value from Hemoglobin A1C and is in store marketing representative of the average blood glucose level in the last 2-3 month period. Normal range: less than 114 mg/dL HbA1c (Bld) [Mass fraction] 5.2 % Normal 4.3 - 6.4 % AO ADM SS Hematocrit (Bld) [Volume fraction] 38.9 % Low 40.0 - 52.0 % AO Workflow SS Hemoglobin (Bld) [Mass/Vol] 13.3 G/dL Normal 13.0 - 17.5 G/dL AO Workflow SS Lymphocytes (Bld) [#/Vol] 1.0 103/mcL Normal 0.9 - 4.3 10^3/mcL AO Workflow SS Lymphocytes/100 WBC (Bld) 25.9 % Normal 20.0 - 40.0 % AO Workflow SS MCH (RBC) [Entitic mass] 34.6 pg High 27.0 - 33.0 pg AO Workflow SS MCHC 34.2 G/dL Normal 32.0 - 36.0 G/dL AO Workflow SS MCV (RBC) [Entitic vol] 101.2 fL High 81.0 - 100.0 fL AO Workflow SS Monocytes (Bld) [#/Vol] 0.4 103/mcL Normal 0.1 - 1.4 10^3/mcL AO Workflow SS Monocytes/100 WBC (Bld) 8.8 % Normal 2.0 - 13.0 % AO Workflow SS Neutrophils (Bld) [#/Vol] 2.4 103/mcL Normal 2.3 - 8.1 10^3/mcL AO Workflow SS Neutrophils/100 WBC (Bld) 60.4 % Normal 50.0 - 75.0 % AO Workflow SS Parathyrin.intact [Mass/Vol] 45.9 pg/mL Normal 18.5 - 88.0 pg/mL AH ADM SS Platelet mean volume (Bld) [Entitic vol] 7.0 fL Normal 6.4 - 10.5 fL AO Workflow SS Platelets (Bld) [#/Vol] 145 103/mcL Low 150 - 450 10^3/mcL AO Workflow SS Potassium [Moles/Vol] 4.6 mmol/L Normal 3.5 - 5.1 mmol/L AO ADM SS Protein [Mass/Vol] 6.7 G/dL Normal 6.4 - 8.2 G/dL AO ADM SS RBC (Bld) [#/Vol] 3.84 106/mcL Low 4.50 - 6.0 0 10^6/mcL AO Workflow SS Sodium [Moles/Vol] 142 mmol/L Normal 136 - 145 mmol/L AO ADM SS Urea nitrogen [Mass/Vol] 27 mg/dL High 7 - 18 mg/dL AO ADM SS Urea nitrogen/Creatinine [Mass ratio] 13 ratio Normal 7 - 27 ratio AO ADM SS WBC (Bld) [#/Vol] 4.0 103/mcL Low 4.5 - 10.8 10^3/mcL AO Workflow SS LABORATORYOrdered By: Carla Kamara on 06-09-2024 Cholesterol [Mass/Vol] 169 mg/dL Normal 0 - 200 mg/dL AO ADM SS Comment on above: Interpretive Data: C holesterol Reference Interval: Less than 200 Desirable 200-239 Borderline high risk 240 and above High risk Cholesterol in HDL [Mass/Vol] 50 mg/dL Normal 40 - 60 mg/dL AO ADM SS Cholesterol in LDL [Mass/Vol] 96 mg/dL Normal 0 - 130 mg/dL AO ADM SS Triglyceride [Mass/Vol] 116 mg/dL Normal 0 - 150 mg/dL AO ADM SS Comment on above: Interpretive Data: T riglyceride Reference Interval: Less than 150 Normal 150-199 Borderline high risk 200-499 High risk 500 or higher Very high risk LIPIDon 06-09-2024 Cholesterol [Mass/Vol] 169 mg/dL Normal 0-200 [facility] Comment on above: Result Comment: Chol esterol Reference Interval: Less than 200 Desirable 200-239 Borderline high risk 240 and above High risk Performed By: #### A DIFF, GFR, A1C, CBC, CMP, LIPID, VIDH, [id number], ANEU #### [address] [address] #### PTH #### [address] [address] Cholesterol in HDL [Mass/Vol] 50 mg/dL Normal 40-60 [facility] Comment on above: Performed By: #### A DIFF, GFR, A1C, CBC, CMP, LIPID, VIDH, [id number], ANEU #### [address] [address] #### PTH #### [address] [address] Cholesterol in LDL [Mass/Vol] 96 mg/dL Normal 0-130 [facility] Comment on above: Performed By: #### A DIFF, GFR, A1C, CBC, CMP, LIPID, VIDH, [id number], ANEU #### [address] [address] #### PTH #### [address] [address] Triglyceride [Mass/Vol] 116 mg/dL Normal 0-150 [facility] Comment on above: Result Comment: Trig lyceride Reference Interval: Less than 150 Normal 150-199 Borderline high risk 200-499 High risk 500 or higher Very high risk Performed By: #### A DIFF, GFR, A1C, CBC, CMP, LIPID, VIDH, [id number], ANEU #### [address] [address] #### PTH #### [address] [address] PTHon 06-09-2024 PTH, Intact 45.9 pg/mL Normal 18.5-88.0 [facility] Comment on above: Performed By: #### A DIFF, GFR, A1C, CBC, CMP, LIPID, VIDH, [id number], ANEU #### [address] [address] #### PTH #### [address] [address] VIDHon 06-09-2024 Vit. D 25-Hydroxy 45.1 ng/mL Normal [facility] Comment on above: Result Comment: Inte rpretive Values Based on Total 25(OH) Vitamin D: Deficient <20 ng/mL Insufficient 20 - <30 ng/mL Sufficient 30-100 ng/mL Performed By: #### A DIFF, GFR, A1C, CBC, CMP, LIPID, VIDH, [id number], ANEU #### [place] [address] [place], [place] [address] #### PTH #### [address] [address] LABORATORYOrdered By: SYSTEM SYSTEM on 02-18-2024 Prostate specific Ag [Mass/Vol] 6.15 ng/mL High 0.00 - 4.00 ng/mL AO ADM SS PSAon 02-18-2024 Prostate Specific Antigen 6.15 ng/mL High 0.00-4.00 Pending Sale To [facility] ([place]) Comment on above: Performed By: #### C MP, GFR, CBC, MG, ADIFF, ANEU #### [address] [address] .Auto Diffon 12-10-2023 Basophil, Absolute 0.0 10 3/mcL Normal 0.0-0.2 [facility] ([place]) Comment on above: Performed By: #### C MP, GFR, CBC, MG, ADIFF, ANEU #### [address] [address] Basophils/100 WBC (Bld) 0.3 % Normal 0.0-2.5 Pending Sale To [facility] ([place]) Comment on above: Performed By: #### C MP, GFR, CBC, MG, ADIFF, ANEU #### [address] [address] Eosinophil, Absolute 0.2 10 3/mcL Normal 0.0-0.4 [facility] ([place]) Comment on above: Performed By: #### C MP, GFR, CBC, MG, ADIFF, ANEU #### [address] [address] Eosinophils/100 WBC (Bld) 4.9 % Normal 0.0-7.0 Pending Sale To [facility] ([place]) Comment on above: Performed By: #### C MP, GFR, CBC, MG, ADIFF, ANEU #### [address] [address] Lymphocyte, Absolute 0.9 10 3/mcL Normal 0.8-3.9 [facility] ([place]) Comment on above: Performed By: #### C MP, GFR, CBC, MG, ADIFF, ANEU #### [address] [address] Lymphocytes/100 WBC (Bld) 24.1 % Normal 10.0-50.0 Pending Sale To [facility] ([place]) Comment on above: Performed By: #### C MP, GFR, CBC, MG, ADIFF, ANEU #### [address] [address] Monocyte, Absolute 0.4 10 3/mcL Normal 0.2-1.0 [facility] ([place]) Comment on above: Performed By: #### C MP, GFR, CBC, MG, ADIFF, ANEU #### [address] [address] Monocytes/100 WBC (Bld) 10.8 % Normal 1.7-13.0 Pending Sale To [facility] ([place]) Comment on above: Performed By: #### C MP, GFR, CBC, MG, ADIFF, ANEU #### [address] [address] Neutrophils/100 WBC (Bld) 59.9 % Normal 37.0-80.0 Pending Sale To [facility] ([place]) Comment on above: Performed By: #### C MP, GFR, CBC, MG, ADIFF, ANEU #### [address] [address] .GFRon 12-10-2023 GFR 48 ml/min/1.73sqm Normal Pending Sale To [facility] ([place]) Comment on above: Result Comment: GFR Population mean for , Non- Americans Ages 20-29 = 116 mL/min/1.73 sq.m. Ages 30-39 = 107 mL/min/1.73 sq.m. Ages 40-49 = 99 mL/min/1.73 sq.m. Ages 50-59 = 93 mL/min/1.73 sq.m. Ages 60-69 = 85 mL/min/1.73 sq.m. Ages 70+ = 75 mL/min/1.73 sq.m. Chronic Kidney Disease: Less than 60 mL/min/1.73 square meters End Stage Renal Disease: Less than 15 mL/min/1.73 square meters Performed By: #### C MP, GFR, CBC, MG, ADIFF, ANEU #### [address] [address] GFR Non- 39 ml/min/1.73sqm Normal Pending Sale To [facility] ([place]) Comment on above: Result Comment: GFR Population mean for , Non- Americans Ages 20-29 = 116 mL/min/1.73 sq.m. Ages 30-39 = 107 mL/min/1.73 sq.m. Ages 40-49 = 99 mL/min/1.73 sq.m. Ages 50-59 = 93 mL/min/1.73 sq.m. Ages 60-69 = 85 mL/min/1.73 sq.m. Ages 70+ = 75 mL/min/1.73 sq.m. Chronic Kidney Disease: Less than 60 mL/min/1.73 square meters End Stage Renal Disease: Less than 15 mL/min/1.73 square meters Performed By: #### C MP, GFR, CBC, MG, ADIFF, ANEU #### [place] [address] .NEUABSon 12-10-2023 Neutrophil, Absolute 2.3 10 3/mcL Low 2.9-6.2 [facility] ([place]) Comment on above: Performed By: #### C MP, GFR, CBC, MG, ADIFF, ANEU #### [place] [address] A1Con 12-10-2023 HbA1c (Bld) [Mass fraction] 5.2 % Normal 4.3-6.4 Pending Sale To [facility] ([place]) Comment on above: Performed By: #### C MP, GFR, CBC, MG, ADIFF, ANEU #### [place] [address] CBCon 12-10-2023 Erythrocyte distribution width (RBC) [Ratio] 13.8 % Normal 11.5-14.5 Pending Sale To [facility] ([place]) Comment on above: Performed By: #### C MP, GFR, CBC, MG, ADIFF, ANEU #### [place] [address] Hematocrit (Bld) [Volume fraction] 37.0 % Low 42.0-52.0 Pending Sale To [facility] ([place]) Comment on above: Performed By: #### C MP, GFR, CBC, MG, ADIFF, ANEU #### [place] [address] Hgb 12.8 G/dL Low 14.0-18.0 Pending Sale To [facility] ([place]) Comment on above: Performed By: #### C MP, GFR, CBC, MG, ADIFF, ANEU #### [place] [address] MCH (RBC) [Entitic mass] 35.2 pg High 27.0-31.2 Pending Sale To [facility] ([place]) Comment on above: Performed By: #### C MP, GFR, CBC, MG, ADIFF, ANEU #### [place] [address] MCHC 34.7 G/dL Normal 31.8-35.4 Pending Sale To [facility] ([place]) Comment on above: Performed By: #### C MP, GFR, CBC, MG, ADIFF, ANEU #### [place] [address] MCV (RBC) [Entitic vol] 101.5 fL High 80.0-94.0 Pending Sale To [facility] ([place]) Comment on above: Performed By: #### C MP, GFR, CBC, MG, ADIFF, ANEU #### [place] [address] Platelet 142 10 3/mcL Normal 130-400 Pending Sale To [facility] ([place]) Comment on above: Performed By: #### C MP, GFR, CBC, MG, ADIFF, ANEU #### [place] [address] Platelet mean volume (Bld) [Entitic vol] 7.2 fL Low 7.4-10.4 Pending Sale To [facility] ([place]) Comment on above: Performed By: #### C MP, GFR, CBC, MG, ADIFF, ANEU #### [address] [address] RBC 3.65 10 6/mcL Low 4.04-6.13 Pending Sale To [facility] ([place] Comment on above: Performed By: #### C MP, GFR, CBC, MG, ADIFF, ANEU #### [address] [address] WBC 3.8 10 3/mcL Low 4.6-10.8 Pending Sale To [facility] ([place]) Comment on above: Performed By: #### C MP, GFR, CBC, MG, ADIFF, ANEU #### [address] [address] CMPon 12-10-2023 Albumin Level 3.9 G/dL Normal 3.4-4.8 Pending Sale To [facility] ([place]) Comment on above: Performed By: #### C MP, GFR, CBC, MG, ADIFF, ANEU #### [place] [id number] Albumin/Globulin [Mass ratio] 1.3 {ratio} Normal 1.1-2.5 Pending Sale To [facility] ([place]) Comment on above: Performed By: #### C MP, GFR, CBC, MG, ADIFF, ANEU #### [place] [address] ALP [Catalytic activity/Vol] 74 U/L Normal 40-135 Pending Sale To [facility] ([place]) Comment on above: Performed By: #### C MP, GFR, CBC, MG, ADIFF, ANEU #### [place] [id number] ALT [Catalytic activity/Vol] 29 U/L Normal 16-63 Pending Sale To [facility] ([place]) Comment on above: Performed By: #### C MP, GFR, CBC, MG, ADIFF, ANEU #### [place] [id number] AST [Catalytic activity/Vol] 15 U/L Normal 10-40 Pending Sale To [facility] ([place]) Comment on above: Performed By: #### C MP, GFR, CBC, MG, ADIFF, ANEU #### [place] [id number] Bili Total 0.6 mg/dL Normal 0.2-1.0 Pending Sale To [facility] ([place]) Comment on above: Result Comment: Use of this assay is not recommended for patients undergoing treatment with eltrombopag due to the potential for falsely elevated results. Performed By: #### C MP, GFR, CBC, MG, ADIFF, ANEU #### [address] [address] BUN/Creatinine Ratio 17 ratio Normal 7-27 [facility] ([place]) Comment on above: Performed By: #### C MP, GFR, CBC, MG, ADIFF, ANEU #### [address] [address] Calcium [Mass/Vol] 8.6 mg/dL Normal 8.4-10.2 [facility] ([place]) Comment on above: Performed By: #### C MP, GFR, CBC, MG, ADIFF, ANEU #### [address] [address] Chloride [Moles/Vol] 105 mmol/L Normal 98-107 [facility] ([place]) Comment on above: Performed By: #### C MP, GFR, CBC, MG, ADIFF, ANEU #### [address] [address] CO2 [Moles/Vol] 27 mmol/L Normal 23-31 Pending Sale To [facility] ([place]) Comment on above: Performed By: #### C MP, GFR, CBC, MG, ADIFF, ANEU #### [address] [address] Creatinine [Mass/Vol] 1.70 mg/dL High 0.70-1.30 Pending Sale To [facility] ([place]) Comment on above: Performed By: #### C MP, GFR, CBC, MG, ADIFF, ANEU #### [place] [id number] Electrolyte Balance 9.0 mEq/L Normal 4.0-15.0 [facility] ([place]) Comment on above: Performed By: #### C MP, GFR, CBC, MG, ADIFF, ANEU #### [address] [address] Globulin 2.9 G/dL Normal Pending Sale To [facility] ([place]) Comment on above: Performed By: #### C MP, GFR, CBC, MG, ADIFF, ANEU #### [address] [address] Glucose [Mass/Vol] 92 mg/dL Normal 83-110 [facility] ([place]) Comment on above: Performed By: #### C MP, GFR, CBC, MG, ADIFF, ANEU #### [address] [address] Potassium [Moles/Vol] 4.1 mmol/L Normal 3.5-5.1 Pending Sale To [facility] ([place]) Comment on above: Performed By: #### C MP, GFR, CBC, MG, ADIFF, ANEU #### [address] [address] Sodium [Moles/Vol] 141 mmol/L Normal 136-145 [facility] ([place]) Comment on above: Performed By: #### C MP, GFR, CBC, MG, ADIFF, ANEU #### [address] [address] Total Protein 6.8 G/dL Normal 6.4-8.2 Pending Sale To [facility] ([place]) Comment on above: Performed By: #### C MP, GFR, CBC, MG, ADIFF, ANEU #### [address] [address] Urea nitrogen [Mass/Vol] 29 mg/dL High 7-18 Pending Sale To [facility] ([place]) Comment on above: Performed By: #### C MP, GFR, CBC, MG, ADIFF, ANEU #### [address] [address] LABORATORYOrdered By: SYSTEM SYSTEM on 12-10-2023 25-hydroxyvitamin D3 [Mass/Vol] 29.1 ng/mL Invalid Interpretation Code AO ADM SS Comment on above: Interpretive Data: I nterpretive Values Based on Total 25(OH) Vitamin D: Deficient <20 ng/mL Insufficient 20 - <30 ng/mL Sufficient 30-100 ng/mL Albumin BCP dye [Mass/Vol] 3.9 G/dL Normal 3.4 - 4.8 G/dL AO ADM SS Albumin/Globulin [Mass ratio] 1.3 {ratio} Normal 1.1 - 2.5 ratio AO ADM SS ALP [Catalytic activity/Vol] 74 U/L Normal 40 - 135 U/L AO ADM SS ALT With P-5'-P [Catalytic activity/Vol] 29 U/L Normal 16 - 63 U/L AO ADM SS AST With P-5'-P [Catalytic activity/Vol] 15 U/L Normal 10 - 40 U/L AO ADM SS Basophil, Absolute 0.0 103/mcL Normal 0.0 - 0.2 10^3/mcL AO Workflow SS Basophils/100 WBC (Bld) 0.3 % Normal 0.0 - 2.5 % AO Workflow SS Bilirubin [Mass/Vol] 0.6 mg/dL Normal 0.2 - 1 .0 mg/dL AO ADM SS Comment on above: Interpretive Data: U se of this assay is not recommended for patients undergoing treatment with eltrombopag due to the potential for falsely elevated results. Calcium [Mass/Vol] 8.6 mg/dL Normal 8.4 - 10. 2 mg/dL AO ADM SS Chloride [Moles/Vol] 105 mmol/L Normal 98 - 10 7 mmol/L AO ADM SS CO2 [Moles/Vol] 27 mmol/L Normal 23 - 31 mmol/L AO ADM SS Creatinine [Mass/Vol] 1.70 mg/dL High 0.70 - 1.30 mg/dL AO ADM SS Electrolyte Balance 9.0 mEq/L Normal 4.0 - 15 .0 mEq/L AO ADM SS Eosinophil, Absolute 0.2 103/mcL Normal 0.0 - 0 .4 10^3/mcL AO Workflow SS Eosinophils/100 WBC (Bld) 4.9 % Normal 0.0 - 7.0 % AO Workflow SS Erythrocyte distribution width (RBC) [Ratio] 13.8 % Normal 11.5 - 14.5 % AO Workflow SS GFR/1.73 sq M.predicted among blacks MDRD (S/P/Bld) [Vol rate/Area] 48 ml/min/1.73sqm Invalid Interpretation Code AO Chemistry S Comment on above: Interpretive Data: GFR Population mean for , Non- Americans Ages 20-29 = 116 mL/min/1.73 sq.m. Ages 30-39 = 107 mL/min/1.73 sq.m. Ages 40-49 = 99 mL/min/1.73 sq.m. Ages 50-59 = 93 mL/min/1.73 sq.m. Ages 60-69 = 85 mL/min/1.73 sq.m. Ages 70+ = 75 mL/min/1.73 sq.m. Chronic Kidney Disease: Less than 60 mL/min/1.73 square meters End Stage Renal Disease: Less than 15 mL/min/1.73 square meters GFR/1.73 sq M.predicted among non-blacks MDRD (S/P/Bld) [Vol rate/Area] 39 ml/min/1.73sqm Invalid Interpretation Code AO Chemistry S Comment on above: Interpretive Data: GFR Population mean for , Non- Americans Ages 20-29 = 116 mL/min/1.73 sq.m. Ages 30-39 = 107 mL/min/1.73 sq.m. Ages 40-49 = 99 mL/min/1.73 sq.m. Ages 50-59 = 93 mL/min/1.73 sq.m. Ages 60-69 = 85 mL/min/1.73 sq.m. Ages 70+ = 75 mL/min/1.73 sq.m. Chronic Kidney Disease: Less than 60 mL/min/1.73 square meters End Stage Renal Disease: Less than 15 mL/min/1.73 square meters Globulin 2.9 G/dL Invalid Interpretation Code AO ADM SS Glucose [Mass/Vol] 92 mg/dL Normal 83 - 110 mg/dL AO ADM SS HbA1c (Bld) [Mass fraction] 5.2 % Normal 4.3 - 6.4 % AO ADM SS Hematocrit (Bld) [Volume fraction] 37.0 % Low 42.0 - 52.0 % AO Workflow SS Hemoglobin (Bld) [Mass/Vol] 12.8 G/dL Low 14.0 - 18.0 G/dL AO Workflow SS Lymphocyte, Absolute 0.9 103/mcL Normal 0.8 - 3 .9 10^3/mcL AO Workflow SS Lymphocytes/100 WBC (Bld) 24.1 % Normal 10.0 - 50.0 % AO Workflow SS MCH (RBC) [Entitic mass] 35.2 pg High 27.0 - 31.2 pg AO Workflow SS MCHC 34.7 G/dL Normal 31.8 - 35.4 G/dL AO Workflow SS MCV (RBC) [Entitic vol] 101.5 fL High 80.0 - 94.0 fL AO Workflow SS Monocyte, Absolute 0.4 103/mcL Normal 0.2 - 1.0 10^3/mcL AO Workflow SS Monocytes/100 WBC (Bld) 10.8 % Normal 1.7 - 13.0 % AO Workflow SS Neutrophil, Absolute 2.3 103/mcL Low 2.9 - 6 .2 10^3/mcL AO Workflow SS Neutrophils/100 WBC (Bld) 59.9 % Normal 37.0 - 80.0 % AO Workflow SS Parathyrin.intact [Mass/Vol] 62.4 pg/mL Normal 18.5 - 88.0 pg/mL AH ADM SS Platelet mean volume (Bld) [Entitic vol] 7.2 fL Low 7.4 - 10.4 fL AO Workflow SS Platelets (Bld) [#/Vol] 142 103/mcL Normal 130 - 400 10^3/mcL AO Workflow SS Potassium [Moles/Vol] 4.1 mmol/L Normal 3.5 - 5.1 mmol/L AO ADM SS Prostate specific Ag [Mass/Vol] 5.24 ng/mL High 0.00 - 4.00 ng/mL AO ADM SS Protein [Mass/Vol] 6.8 G/dL Normal 6.4 - 8.2 G/dL AO ADM SS RBC (Bld) [#/Vol] 3.65 106/mcL Low 4.04 - 6.1 3 10^6/mcL AO Workflow SS Sodium [Moles/Vol] 141 mmol/L Normal 136 - 145 mmol/L AO ADM SS Urea nitrogen [Mass/Vol] 29 mg/dL High 7 - 18 mg/dL AO ADM SS Urea nitrogen/Creatinine [Mass ratio] 17 ratio Normal 7 - 27 ratio AO ADM SS WBC (Bld) [#/Vol] 3.8 103/mcL Low 4.6 - 10.8 10^3/mcL AO Workflow SS LABORATORYOrdered By: Carla Kamara on 12-10-2023 Albumin DL <= 20 mg/L (U) [Mass/Vol] 5440 mcg/dL Invalid Interpretation Code AO ADM SS Albumin/Creatinine DL <= 20 mg/L (U) [Mass ratio] 38 mcg/mg High 0 - 30 mcg/mg AO ADM SS Cholesterol [Mass/Vol] 167 mg/dL Normal 0 - 200 mg/dL AO ADM SS Comment on above: Interpretive Data: C holesterol Reference Interval: Less than 200 Desirable 200-239 Borderline high risk 240 and above High risk Cholesterol in HDL [Mass/Vol] 47 mg/dL Normal 40 - 60 mg/dL AO ADM SS Cholesterol in LDL [Mass/Vol] 97 mg/dL Normal 0 - 130 mg/dL AO ADM SS Creatinine (U) [Mass/Vol] 144.7 mg/dL Normal 39.0 - 259.0 mg/dL AO ADM SS Triglyceride [Mass/Vol] 113 mg/dL Normal 0 - 150 mg/dL AO ADM SS Comment on above: Interpretive Data: T riglyceride Reference Interval: Less than 150 Normal 150-199 Borderline high risk 200-499 High risk 500 or higher Very high risk LIPIDon 12-10-2023 Cholesterol [Mass/Vol] 167 mg/dL Normal 0-200 Pending Sale To [facility] ([place]) Comment on above: Result Comment: Chol esterol Reference Interval: Less than 200 Desirable 200-239 Borderline high risk 240 and above High risk Performed By: #### C MP, GFR, CBC, MG, ADIFF, ANEU #### [address] [address] Cholesterol in HDL [Mass/Vol] 47 mg/dL Normal 40-60 Pending Sale To [facility] ([place] Comment on above: Performed By: #### C MP, GFR, CBC, MG, ADIFF, ANEU #### [address] [address] Cholesterol in LDL [Mass/Vol] 97 mg/dL Normal 0-130 Pending Sale To [facility] ([place] Comment on above: Performed By: #### C MP, GFR, CBC, MG, ADIFF, ANEU #### [address] [address] Triglyceride [Mass/Vol] 113 mg/dL Normal 0-150 Pending Sale To [facility] ([place] Comment on above: Result Comment: Trig lyceride Reference Interval: Less than 150 Normal 150-199 Borderline high risk 200-499 High risk 500 or higher Very high risk Performed By: #### C MP, GFR, CBC, MG, ADIFF, ANEU #### [address] [address] MALBRon 12-10-2023 U Creatinine 144.7 mg/dL Normal 39.0-259.0 Pending Sale To [facility] ([place]) Comment on above: Performed By: #### C MP, GFR, CBC, MG, ADIFF, ANEU #### [place] [address] U Microalb 5440 mcg/dL Normal Pending Sale To [facility] ([place]) Comment on above: Performed By: #### C MP, GFR, CBC, MG, ADIFF, ANEU #### [place] [address] U Ratio Alb/Cre 38 mcg/mg High 0-30 Pending Sale To [facility] ([place]) Comment on above: Performed By: #### C MP, GFR, CBC, MG, ADIFF, ANEU #### [place] [address] PSAon 12-10-2023 Prostate Specific Antigen 5.24 ng/mL High 0.00-4.00 Pending Sale To [facility] ([place]) Comment on above: Performed By: #### C MP, GFR, CBC, MG, ADIFF, ANEU #### [place] [address] PTHon 12-10-2023 PTH, Intact 62.4 pg/mL Normal 18.5-88.0 Pending Sale To [facility] ([place]) Comment on above: Performed By: #### C MP, GFR, CBC, MG, ADIFF, ANEU #### [place] [address] VIDHon 12-10-2023 Vit. D 25-Hydroxy 29.1 ng/mL Normal Pending Sale To [facility] ([place]) Comment on above: Result Comment: Inte rpretive Values Based on Total 25(OH) Vitamin D: Deficient <20 ng/mL Insufficient 20 - <30 ng/mL Sufficient 30-100 ng/mL Performed By: #### C MP, GFR, CBC, MG, ADIFF, ANEU #### [place] [address] .GFRon 08-10-2023 GFR 46 ml/min/1.73sqm Normal Pending Sale To [facility] ([place]) Comment on above: Result Comment: GFR Population mean for , Non- Americans Ages 20-29 = 116 mL/min/1.73 sq.m. Ages 30-39 = 107 mL/min/1.73 sq.m. Ages 40-49 = 99 mL/min/1.73 sq.m. Ages 50-59 = 93 mL/min/1.73 sq.m. Ages 60-69 = 85 mL/min/1.73 sq.m. Ages 70+ = 75 mL/min/1.73 sq.m. Chronic Kidney Disease: Less than 60 mL/min/1.73 square meters End Stage Renal Disease: Less than 15 mL/min/1.73 square meters Performed By: #### C MP, GFR, CBC, MG, ADIFF, ANEU #### [address] [address] GFR Non- 38 ml/min/1.73sqm Normal Pending Sale To [facility] ([place]) Comment on above: Result Comment: GFR Population mean for , Non- Americans Ages 20-29 = 116 mL/min/1.73 sq.m. Ages 30-39 = 107 mL/min/1.73 sq.m. Ages 40-49 = 99 mL/min/1.73 sq.m. Ages 50-59 = 93 mL/min/1.73 sq.m. Ages 60-69 = 85 mL/min/1.73 sq.m. Ages 70+ = 75 mL/min/1.73 sq.m. Chronic Kidney Disease: Less than 60 mL/min/1.73 square meters End Stage Renal Disease: Less than 15 mL/min/1.73 square meters Performed By: #### C MP, GFR, CBC, MG, ADIFF, ANEU #### [address] [address] [facility] BUN/Creatinine Ratio 14 ratio Normal 01-15 [facility] ([place]) Comment on above: Performed By: #### C MP, GFR, CBC, MG, ADIFF, ANEU #### [address] [address] Calcium [Mass/Vol] 9.1 mg/dL Normal 8.4-10.2 [facility] ([place]) Comment on above: Performed By: #### C MP, GFR, CBC, MG, ADIFF, ANEU #### [address] [address] Chloride [Moles/Vol] 105 mmol/L Normal 98-107 [facility] ([place]) Comment on above: Performed By: #### C MP, GFR, CBC, MG, ADIFF, ANEU #### [address] [address] CO2 [Moles/Vol] 28 mmol/L Normal 23-31 Pending Sale To [facility] ([place] Comment on above: Performed By: #### C MP, GFR, CBC, MG, ADIFF, ANEU #### [address] [address] Creatinine [Mass/Vol] 1.76 mg/dL High 0.70-1.30 Pending Sale To [facility] ([place]) Comment on above: Performed By: #### C MP, GFR, CBC, MG, ADIFF, ANEU #### [address] [address] Electrolyte Balance 10.0 mEq/L Normal 4.0-15.0 [facility] ([place]) Comment on above: Performed By: #### C MP, GFR, CBC, MG, ADIFF, ANEU #### [address] [address] Glucose [Mass/Vol] 105 mg/dL Normal 83-110 [facility] ([place]) Comment on above: Performed By: #### C MP, GFR, CBC, MG, ADIFF, ANEU #### [address] [address] Potassium [Moles/Vol] 4.1 mmol/L Normal 3.5-5.1 Pending Sale To [facility] ([place]) Comment on above: Performed By: #### C MP, GFR, CBC, MG, ADIFF, ANEU #### [address] [address] Sodium [Moles/Vol] 143 mmol/L Normal 136-145 [facility] ([place]) Comment on above: Performed By: #### C MP, GFR, CBC, MG, ADIFF, ANEU #### [address] [address] Urea nitrogen [Mass/Vol] 25 mg/dL High 7-18 Pending Sale To [facility] ([place] Comment on above: Performed By: #### C MP, GFR, CBC, MG, ADIFF, ANEU #### [address] [address] LABORATORYOrdered By: SYSTEM SYSTEM on 08-10-2023 Calcium [Mass/Vol] 9.1 mg/dL Normal 8.4 - 10. 2 mg/dL AO ADM SS Chloride [Moles/Vol] 105 mmol/L Normal 98 - 10 7 mmol/L AO ADM SS CO2 [Moles/Vol] 28 mmol/L Normal 23 - 31 mmol/L AO ADM SS Creatinine [Mass/Vol] 1.76 mg/dL High 0.70 - 1.30 mg/dL AO ADM SS Electrolyte Balance 10.0 mEq/L Normal 4.0 - 15 .0 mEq/L AO ADM SS GFR/1.73 sq M.predicted among blacks MDRD (S/P/Bld) [Vol rate/Area] 46 ml/min/1.73sqm Invalid Interpretation Code AO Chemistry S Comment on above: Interpretive Data: GFR Population mean for , Non- Americans Ages 20-29 = 116 mL/min/1.73 sq.m. Ages 30-39 = 107 mL/min/1.73 sq.m. Ages 40-49 = 99 mL/min/1.73 sq.m. Ages 50-59 = 93 mL/min/1.73 sq.m. Ages 60-69 = 85 mL/min/1.73 sq.m. Ages 70+ = 75 mL/min/1.73 sq.m. Chronic Kidney Disease: Less than 60 mL/min/1.73 square meters End Stage Renal Disease: Less than 15 mL/min/1.73 square meters GFR/1.73 sq M.predicted among non-blacks MDRD (S/P/Bld) [Vol rate/Area] 38 ml/min/1.73sqm Invalid Interpretation Code AO Chemistry S Comment on above: Interpretive Data: GFR Population mean for , Non- Americans Ages 20-29 = 116 mL/min/1.73 sq.m. Ages 30-39 = 107 mL/min/1.73 sq.m. Ages 40-49 = 99 mL/min/1.73 sq.m. Ages 50-59 = 93 mL/min/1.73 sq.m. Ages 60-69 = 85 mL/min/1.73 sq.m. Ages 70+ = 75 mL/min/1.73 sq.m. Chronic Kidney Disease: Less than 60 mL/min/1.73 square meters End Stage Renal Disease: Less than 15 mL/min/1.73 square meters Glucose [Mass/Vol] 105 mg/dL Normal 83 - 110 mg/dL AO ADM SS Potassium [Moles/Vol] 4.1 mmol/L Normal 3.5 - 5.1 mmol/L AO ADM SS Sodium [Moles/Vol] 143 mmol/L Normal 136 - 145 mmol/L AO ADM SS Urea nitrogen [Mass/Vol] 25 mg/dL High 7 - 18 mg/dL AO ADM SS Urea nitrogen/Creatinine [Mass ratio] 14 ratio Normal 7 - 27 ratio AO ADM SS .Auto Diffon 07-30-2023 Basophil, Absolute 0.0 10 3/mcL Normal 0.0-0.2 [facility] ([place]) Comment on above: Performed By: #### C MP, GFR, CBC, MG, ADIFF, ANEU #### [address] [address] Basophils/100 WBC (Bld) 0.4 % Normal 0.0-2.5 Pending Sale To [facility] ([place] Comment on above: Performed By: #### C MP, GFR, CBC, MG, ADIFF, ANEU #### [address] [address] Eosinophil, Absolute 0.3 10 3/mcL Normal 0.0-0.4 [facility] ([place]) Comment on above: Performed By: #### C MP, GFR, CBC, MG, ADIFF, ANEU #### [address] [address] Eosinophils/100 WBC (Bld) 6.2 % Normal 0.0-7.0 Pending Sale To [facility] ([place] Comment on above: Performed By: #### C MP, GFR, CBC, MG, ADIFF, ANEU #### [address] [address] Lymphocyte, Absolute 0.9 10 3/mcL Normal 0.8-3.9 [facility] ([place]) Comment on above: Performed By: #### C MP, GFR, CBC, MG, ADIFF, ANEU #### [address] [address] Lymphocytes/100 WBC (Bld) 19.0 % Normal 10.0-50.0 Pending Sale To [facility] ([place]) Comment on above: Performed By: #### C MP, GFR, CBC, MG, ADIFF, ANEU #### [address] [address] Monocyte, Absolute 0.3 10 3/mcL Normal 0.2-1.0 [facility] ([place]) Comment on above: Performed By: #### C MP, GFR, CBC, MG, ADIFF, ANEU #### [address] [address] Monocytes/100 WBC (Bld) 6.7 % Normal 1.7-13.0 Pending Sale To [facility] ([place] Comment on above: Performed By: #### C MP, GFR, CBC, MG, ADIFF, ANEU #### [address] [address] Neutrophils/100 WBC (Bld) 67.7 % Normal 37.0-80.0 Pending Sale To [facility] ([place] Comment on above: Performed By: #### C MP, GFR, CBC, MG, ADIFF, ANEU #### [address] [address] .GFRon 07-30-2023 GFR Non- 32 ml/min/1.73sqm Normal Pending Sale To [facility] ([place]) Comment on above: Result Comment: GFR Population mean for , Non- Americans Ages 20-29 = 116 mL/min/1.73 sq.m. Ages 30-39 = 107 mL/min/1.73 sq.m. Ages 40-49 = 99 mL/min/1.73 sq.m. Ages 50-59 = 93 mL/min/1.73 sq.m. Ages 60-69 = 85 mL/min/1.73 sq.m. Ages 70+ = 75 mL/min/1.73 sq.m. Chronic Kidney Disease: Less than 60 mL/min/1.73 square meters End Stage Renal Disease: Less than 15 mL/min/1.73 square meters Performed By: #### C MP, GFR, CBC, MG, ADIFF, ANEU #### [address] [address] GFR 38 ml/min/1.73sqm Normal Pending Sale To [facility] ([place] Comment on above: Result Comment: GFR Population mean for , Non- Americans Ages 20-29 = 116 mL/min/1.73 sq.m. Ages 30-39 = 107 mL/min/1.73 sq.m. Ages 40-49 = 99 mL/min/1.73 sq.m. Ages 50-59 = 93 mL/min/1.73 sq.m. Ages 60-69 = 85 mL/min/1.73 sq.m. Ages 70+ = 75 mL/min/1.73 sq.m. Chronic Kidney Disease: Less than 60 mL/min/1.73 square meters End Stage Renal Disease: Less than 15 mL/min/1.73 square meters Performed By: #### C MP, GFR, CBC, MG, ADIFF, ANEU #### [place] [address] .NEUABSon 07-30-2023 Neutrophil, Absolute 3.2 10 3/mcL Normal 2.9-6.2 [facility] ([place]) Comment on above: Performed By: #### C MP, GFR, CBC, MG, ADIFF, ANEU #### [address] [address] BMPon 07-30-2023 BUN/Creatinine Ratio 17 ratio Normal 7-27 [facility] ([place]) Comment on above: Order Comment: TO BE DONE 07/21-09/1230-DAYS S/P TAVR Performed By: #### C MP, GFR, CBC, MG, ADIFF, ANEU #### [address] [address] Calcium [Mass/Vol] 9.4 mg/dL Normal 8.4-10.2 [facility] ([place]) Comment on above: Order Comment: TO BE DONE 07/21-09/1230-DAYS S/P TAVR Performed By: #### C MP, GFR, CBC, MG, ADIFF, ANEU #### [address] [address] Chloride [Moles/Vol] 105 mmol/L Normal 98-107 [facility] ([place]) Comment on above: Order Comment: TO BE DONE 07/21-09/1230-DAYS S/P TAVR Performed By: #### C MP, GFR, CBC, MG, ADIFF, ANEU #### [address] [address] CO2 [Moles/Vol] 26 mmol/L Normal 23-31 Pending Sale To [facility] ([place] Comment on above: Order Comment: TO BE DONE 07/21-09/1230-DAYS S/P TAVR Performed By: #### C MP, GFR, CBC, MG, ADIFF, ANEU #### [address] [address] Creatinine [Mass/Vol] 2.06 mg/dL High 0.70-1.30 Pending Sale To [facility] ([place]) Comment on above: Order Comment: TO BE DONE 07/21-09/1230-DAYS S/P TAVR Performed By: #### C MP, GFR, CBC, MG, ADIFF, ANEU #### [address] [address] Electrolyte Balance 10.0 mEq/L Normal 4.0-15.0 [facility] ([place]) Comment on above: Order Comment: TO BE DONE 07/21-09/1230-DAYS S/P TAVR Performed By: #### C MP, GFR, CBC, MG, ADIFF, ANEU #### [address] [address] Glucose [Mass/Vol] 142 mg/dL High 83-110 [facility] ([place]) Comment on above: Order Comment: TO BE DONE 07/21-09/1230-DAYS S/P TAVR Performed By: #### C MP, GFR, CBC, MG, ADIFF, ANEU #### [address] [address] Potassium [Moles/Vol] 4.5 mmol/L Normal 3.5-5.1 Pending Sale To [facility] ([place] Comment on above: Order Comment: TO BE DONE 07/21-09/1230-DAYS S/P TAVR Performed By: #### C MP, GFR, CBC, MG, ADIFF, ANEU #### [address] [address] Sodium [Moles/Vol] 141 mmol/L Normal 136-145 [facility] ([place]) Comment on above: Order Comment: TO BE DONE 07/21-09/1230-DAYS S/P TAVR Performed By: #### C MP, GFR, CBC, MG, ADIFF, ANEU #### [place] [id number] Urea nitrogen [Mass/Vol] 36 mg/dL High 7-18 Pending Sale To [facility] ([place] Comment on above: Order Comment: TO BE DONE 07/21-09/1230-DAYS S/P TAVR Performed By: #### C MP, GFR, CBC, MG, ADIFF, ANEU #### [address] [address] CBCon 07-30-2023 Erythrocyte distribution width (RBC) [Ratio] 13.3 % Normal 11.5-14.5 Pending Sale To [facility] ([place] Comment on above: Order Comment: TO BE DONE 07/21-09/1230-DAYS S/P TAVR Performed By: #### C MP, GFR, CBC, MG, ADIFF, ANEU #### [address] [address] Hematocrit (Bld) [Volume fraction] 35.8 % Low 42.0-52.0 Pending Sale To [facility] [place] Comment on above: Order Comment: TO BE DONE 07/21-09/1230-DAYS S/P TAVR Performed By: #### C MP, GFR, CBC, MG, ADIFF, ANEU #### [place] [address] Hgb 12.6 G/dL Low 14.0-18.0 Pending Sale To [facility] ([place] Comment on above: Order Comment: TO BE DONE 07/21-09/1230-DAYS S/P TAVR Performed By: #### C MP, GFR, CBC, MG, ADIFF, ANEU #### [place] [address] MCH (RBC) [Entitic mass] 34.2 pg High 27.0-31.2 Pending Sale To [facility] [place] Comment on above: Order Comment: TO BE DONE 07/21-09/1230-DAYS S/P TAVR Performed By: #### C MP, GFR, CBC, MG, ADIFF, ANEU #### [place] [address] MCHC 35.1 G/dL Normal 31.8-35.4 Pending Sale To [facility] [place] Comment on above: Order Comment: TO BE DONE 07/21-09/1230-DAYS S/P TAVR Performed By: #### C MP, GFR, CBC, MG, ADIFF, ANEU #### [place] [address] MCV (RBC) [Entitic vol] 97.5 fL High 80.0-94.0 Pending Sale To [facility] ([place] Comment on above: Order Comment: TO BE DONE 07/21-09/1230-DAYS S/P TAVR Performed By: #### C MP, GFR, CBC, MG, ADIFF, ANEU #### [place] [address] Platelet 129 10 3/mcL Low 130-400 Pending Sale To [facility] ([place] Comment on above: Order Comment: TO BE DONE 07/21-09/1230-DAYS S/P TAVR Performed By: #### C MP, GFR, CBC, MG, ADIFF, ANEU #### [place] [address] Platelet mean volume (Bld) [Entitic vol] 7.1 fL Low 7.4-10.4 Pending Sale To [facility] ([place] Comment on above: Order Comment: TO BE DONE 07/21-09/1230-DAYS S/P TAVR Performed By: #### C MP, GFR, CBC, MG, ADIFF, ANEU #### [address] [address] RBC 3.67 10 6/mcL Low 4.04-6.13 Pending Sale To [facility] ([place] Comment on above: Order Comment: TO BE DONE 07/21-09/1230-DAYS S/P TAVR Performed By: #### C MP, GFR, CBC, MG, ADIFF, ANEU #### [address] [address] WBC 4.8 10 3/mcL Normal 4.6-10.8 Pending Sale To [facility] [place] Comment on above: Order Comment: TO BE DONE 07/21-09/1230-DAYS S/P TAVR Performed By: #### C MP, GFR, CBC, MG, ADIFF, ANEU #### [address] [address] .Auto Diffon 07-01-2023 Basophil, Absolute 0.0 10 3/mcL Normal 0.0-0.3 [facility] ([place] Comment on above: Performed By: #### C MP, GFR, CBC, MG, ADIFF, ANEU #### [address] [address] Basophils/100 WBC (Bld) 0.1 % Normal 0.0-2.5 Pending Sale To [facility] [place] Comment on above: Performed By: #### C MP, GFR, CBC, MG, ADIFF, ANEU #### [address] [address] Eosinophil, Absolute 0.1 10 3/mcL Normal 0.0-0.7 [facility] ([place]) Comment on above: Performed By: #### C MP, GFR, CBC, MG, ADIFF, ANEU #### [address] [address] Eosinophils/100 WBC (Bld) 2.6 % Normal 0.0-6.0 Pending Sale To [facility] ([place] Comment on above: Performed By: #### C MP, GFR, CBC, MG, ADIFF, ANEU #### [address] [address] Lymphocyte, Absolute 0.7 10 3/mcL Low 0.9-4.3 [facility] ([place] Comment on above: Performed By: #### C MP, GFR, CBC, MG, ADIFF, ANEU #### [address] [address] Lymphocytes/100 WBC (Bld) 11.9 % Low 20.0-40.0 Pending Sale To [facility] [place] Comment on above: Performed By: #### C MP, GFR, CBC, MG, ADIFF, ANEU #### [address] [address] Monocyte, Absolute 0.7 10 3/mcL Normal 0.1-1.4 [facility] ([place] Comment on above: Performed By: #### C MP, GFR, CBC, MG, ADIFF, ANEU #### [address] [address] Monocytes/100 WBC (Bld) 11.9 % Normal 2.0-13.0 Pending Sale To [facility] [place] Comment on above: Performed By: #### C MP, GFR, CBC, MG, ADIFF, ANEU #### [address] [address] Neutrophils/100 WBC (Bld) 73.5 % Normal 50.0-75.0 Pending Sale To [facility] [place] Comment on above: Performed By: #### C MP, GFR, CBC, MG, ADIFF, ANEU #### [address] [address] .GFRon 07-01-2023 GFR 59 ml/min/1.73sqm Normal Pending Sale To [facility] ([place] Comment on above: Result Comment: GFR Population mean for , Non- Americans Ages 20-29 = 116 mL/min/1.73 sq.m. Ages 30-39 = 107 mL/min/1.73 sq.m. Ages 40-49 = 99 mL/min/1.73 sq.m. Ages 50-59 = 93 mL/min/1.73 sq.m. Ages 60-69 = 85 mL/min/1.73 sq.m. Ages 70+ = 75 mL/min/1.73 sq.m. Chronic Kidney Disease: Less than 60 mL/min/1.73 square meters End Stage Renal Disease: Less than 15 mL/min/1.73 square meters Performed By: #### C MP, GFR, CBC, MG, ADIFF, ANEU #### [place] [address] GFR Non- 49 ml/min/1.73sqm Normal Pending Sale To [facility] ([place] Comment on above: Result Comment: GFR Population mean for , Non- Americans Ages 20-29 = 116 mL/min/1.73 sq.m. Ages 30-39 = 107 mL/min/1.73 sq.m. Ages 40-49 = 99 mL/min/1.73 sq.m. Ages 50-59 = 93 mL/min/1.73 sq.m. Ages 60-69 = 85 mL/min/1.73 sq.m. Ages 70+ = 75 mL/min/1.73 sq.m. Chronic Kidney Disease: Less than 60 mL/min/1.73 square meters End Stage Renal Disease: Less than 15 mL/min/1.73 square meters Performed By: #### C MP, GFR, CBC, MG, ADIFF, ANEU #### [place] [address] .NEUABSon 07-01-2023 Neutrophil, Absolute 4.1 10 3/mcL Normal 2.3-8.1 [facility] ([place]) Comment on above: Performed By: #### C MP, GFR, CBC, MG, ADIFF, ANEU #### [address] [address] BMPon 07-01-2023 BUN/Creatinine Ratio 13.5 ratio Normal 10.0-22.0 [facility] ([place] Comment on above: Performed By: #### C MP, GFR, CBC, MG, ADIFF, ANEU #### [address] [address] Calcium [Mass/Vol] 9.5 mg/dL Normal 8.7-10.4 [facility] ([place]) Comment on above: Performed By: #### C MP, GFR, CBC, MG, ADIFF, ANEU #### [address] [address] Chloride [Moles/Vol] 107 mmol/L Normal 98-110 [facility] ([place] Comment on above: Performed By: #### C MP, GFR, CBC, MG, ADIFF, ANEU #### [address] [address] CO2 [Moles/Vol] 26 mmol/L Normal 22-32 Pending Sale To [facility] [place] Comment on above: Performed By: #### C MP, GFR, CBC, MG, ADIFF, ANEU #### [address] [address] Creatinine [Mass/Vol] 1.41 mg/dL High 0.60-1.40 Pending Sale To [facility] ([place] Comment on above: Performed By: #### C MP, GFR, CBC, MG, ADIFF, ANEU #### [address] [address] Electrolyte Balance 6.0 mEq/L Normal 4.0-15.0 [facility] ([place]) Comment on above: Performed By: #### C MP, GFR, CBC, MG, ADIFF, ANEU #### [address] [address] Glucose [Mass/Vol] 101 mg/dL Normal 82-115 [facility] ([place]) Comment on above: Performed By: #### C MP, GFR, CBC, MG, ADIFF, ANEU #### [address] [address] Potassium [Moles/Vol] 4.2 mmol/L Normal 3.5-5.0 Pending Sale To [facility] ([place] Comment on above: Result Comment: Spec imen slightly hemolyzed. Performed By: #### C MP, GFR, CBC, MG, ADIFF, ANEU #### [address] [address] Sodium [Moles/Vol] 139 mmol/L Normal 136-145 [facility] ([place]) Comment on above: Performed By: #### C MP, GFR, CBC, MG, ADIFF, ANEU #### [place] [address] Urea nitrogen [Mass/Vol] 19.0 mg/dL Normal 8.0-22.0 Pending Sale To [facility] ([place] Comment on above: Performed By: #### C MP, GFR, CBC, MG, ADIFF, ANEU #### [place] [address] CBCon 07-01-2023 Erythrocyte distribution width (RBC) [Ratio] 13.9 % Normal 11.5-15.5 Pending Sale To [facility] [place] Comment on above: Performed By: #### C MP, GFR, CBC, MG, ADIFF, ANEU #### [place] [address] Hematocrit (Bld) [Volume fraction] 35.5 % Low 40.0-52.0 Pending Sale To [facility] ([place] Comment on above: Performed By: #### C MP, GFR, CBC, MG, ADIFF, ANEU #### [place] [address] Hgb 12.5 G/dL Low 13.0-17.5 Pending Sale To [facility] ([place] Comment on above: Performed By: #### C MP, GFR, CBC, MG, ADIFF, ANEU #### [place] [address] MCH (RBC) [Entitic mass] 35.0 pg High 27.0-33.0 Pending Sale To [facility] ([place] Comment on above: Performed By: #### C MP, GFR, CBC, MG, ADIFF, ANEU #### [place] [address] MCHC 35.3 G/dL Normal 32.0-36.0 Pending Sale To [facility] ([place] Comment on above: Performed By: #### C MP, GFR, CBC, MG, ADIFF, ANEU #### [place] [address] MCV (RBC) [Entitic vol] 99.2 fL Normal 81.0-100.0 Pending Sale To [facility] ([place] Comment on above: Performed By: #### C MP, GFR, CBC, MG, ADIFF, ANEU #### [place] [address] Platelet 130 10 3/mcL Low 150-450 Pending Sale To [facility] ([place] Comment on above: Performed By: #### C MP, GFR, CBC, MG, ADIFF, ANEU #### [place] [address] Platelet mean volume (Bld) [Entitic vol] 6.9 fL Normal 6.4-10.5 Pending Sale To [facility] ([place] Comment on above: Performed By: #### C MP, GFR, CBC, MG, ADIFF, ANEU #### [place] [address] RBC 3.58 10 6/mcL Low 4.50-6.00 Pending Sale To [facility] ([place] Comment on above: Performed By: #### C MP, GFR, CBC, MG, ADIFF, ANEU #### [place] [address] WBC 5.5 10 3/mcL Normal 4.5-10.8 Pending Sale To [facility] ([place] Comment on above: Performed By: #### C MP, GFR, CBC, MG, ADIFF, ANEU #### [place] [address] LABORATORYOrdered By: SYSTEM SYSTEM on 07-01-2023 Basophils (Bld) [#/Vol] 0.0 103/mcL Normal 0.0 - 0.3 10^3/mcL AH Workflow SS Basophils/100 WBC (Bld) 0.1 % Normal 0.0 - 2.5 % AH Workflow SS Calcium [Mass/Vol] 9.5 mg/dL Normal 8.7 - 10. 4 mg/dL AH ADM SS Chloride [Moles/Vol] 107 mmol/L Normal 98 - 11 0 mEq/L AH ADM SS CO2 [Moles/Vol] 26 mmol/L Normal 22 - 32 mEq/L AH ADM SS Creatinine [Mass/Vol] 1.41 mg/dL High 0.60 - 1.40 mg/dL ADM SS Electrolyte Balance 6.0 mEq/L Normal 4.0 - 15 .0 mEq/L ADM SS Eosinophils (Bld) [#/Vol] 0.1 103/mcL Normal 0.0 - 0.7 10^3/mcL Workflow SS Eosinophils/100 WBC (Bld) 2.6 % Normal 0.0 - 6.0 % Workflow SS Erythrocyte distribution width (RBC) [Ratio] 13.9 % Normal 11.5 - 15.5 % Workflow SS GFR/1.73 sq M.predicted among blacks MDRD (S/P/Bld) [Vol rate/Area] 59 ml/min/1.73sqm Invalid Interpretation Code ADM Comment on above: Interpretive Data: GFR Population mean for , Non- Americans Ages 20-29 = 116 mL/min/1.73 sq.m. Ages 30-39 = 107 mL/min/1.73 sq.m. Ages 40-49 = 99 mL/min/1.73 sq.m. Ages 50-59 = 93 mL/min/1.73 sq.m. Ages 60-69 = 85 mL/min/1.73 sq.m. Ages 70+ = 75 mL/min/1.73 sq.m. Chronic Kidney Disease: Less than 60 mL/min/1.73 square meters End Stage Renal Disease: Less than 15 mL/min/1.73 square meters GFR/1.73 sq M.predicted among non-blacks MDRD (S/P/Bld) [Vol rate/Area] 49 ml/min/1.73sqm Invalid Interpretation Code [facility] Comment on above: Interpretive Data: GFR Population mean for , Non- Americans Ages 20-29 = 116 mL/min/1.73 sq.m. Ages 30-39 = 107 mL/min/1.73 sq.m. Ages 40-49 = 99 mL/min/1.73 sq.m. Ages 50-59 = 93 mL/min/1.73 sq.m. Ages 60-69 = 85 mL/min/1.73 sq.m. Ages 70+ = 75 mL/min/1.73 sq.m. Chronic Kidney Disease: Less than 60 mL/min/1.73 square meters End Stage Renal Disease: Less than 15 mL/min/1.73 square meters Glucose [Mass/Vol] 101 mg/dL Normal 82 - 115 mg/dL ADM SS Hematocrit (Bld) [Volume fraction] 35.5 % Low 40.0 - 52.0 % AH Workflow SS Hemoglobin (Bld) [Mass/Vol] 12.5 G/dL Low 13.0 - 17.5 G/dL AH Workflow SS Lymphocytes (Bld) [#/Vol] 0.7 103/mcL Low 0.9 - 4.3 10^3/mcL AH Workflow SS Lymphocytes/100 WBC (Bld) 11.9 % Low 20.0 - 40.0 % Workflow SS MCH (RBC) [Entitic mass] 35.0 pg High 27.0 - 33.0 pg Workflow SS MCHC 35.3 G/dL Normal 32.0 - 36.0 G/dL Workflow SS MCV (RBC) [Entitic vol] 99.2 fL Normal 81.0 - 100.0 fL Workflow SS Monocytes (Bld) [#/Vol] 0.7 103/mcL Normal 0.1 - 1.4 10^3/mcL Workflow SS Monocytes/100 WBC (Bld) 11.9 % Normal 2.0 - 13.0 % Workflow SS Neutrophils (Bld) [#/Vol] 4.1 103/mcL Normal 2.3 - 8.1 10^3/mcL AH Workflow SS Neutrophils/100 WBC (Bld) 73.5 % Normal 50.0 - 75.0 % AH Workflow SS Platelet mean volume (Bld) [Entitic vol] 6.9 fL Normal 6.4 - 10.5 fL Workflow SS Platelets (Bld) [#/Vol] 130 103/mcL Low 150 - 450 10^3/mcL Workflow SS Potassium [Moles/Vol] 4.2 mmol/L Normal 3.5 - 5.0 mEq/L ADM SS Comment on above: Result Comment: Spec imen slightly hemolyzed. RBC (Bld) [#/Vol] 3.58 106/mcL Low 4.50 - 6.0 0 10^6/mcL AH Workflow SS Sodium [Moles/Vol] 139 mmol/L Normal 136 - 145 mEq/L ADM SS Urea nitrogen [Mass/Vol] 19.0 mg/dL Normal 8.0 - 22.0 mg/dL ADM SS Urea nitrogen/Creatinine [Mass ratio] 13.5 ratio Normal 10.0 - 22.0 ratio ADM SS WBC (Bld) [#/Vol] 5.5 103/mcL Normal 4.5 - 10.8 10^3/mcL Workflow SS LABORATORYOrdered By: Apolinar Gorman on 07-01-2023 PT Coag (PPP) [Time] 11.7 s Normal 9.0 - 1 4.2 seconds [facility] SS Comment on above: Interpretive Data: E ffective 01/04/08, Protime results may be affected by some antibiotics (i.e. Ciprofloxacin, Azithromycin, Bactrim) which may potentiate the action of oral anticoagulants, with further increases in Protime/INR. PT International Ratio 1.0 ratio Invalid Interpretation Code [facility] SS Comment on above: Interpretive Data: Edson lorenz [employer] [place] [employer] (CHEST, 1991, [id number]) recommended therapeutic range for oral anticoagulant therapy is: LOW RISK: Prophylaxis of venous thrombosis INR: 2.0-3.0 Treatment of pulmonary embolism 2.0-3.0 Prevention of systemic embolism 2.0-3.0 HIGH RISK: Mechanical prosthetic valves 2.5-3.5 PROon 07-01-2023 INR Coag (PPP) [Relative time] 1.0 {INR} Normal Pending Sale To [facility] ([place]) Comment on above: Result Comment: [employer] [place] [employer] (CHEST, 1991, [id number]) recommended therapeutic range for oral anticoagulant therapy is: LOW RISK: Prophylaxis of venous thrombosis INR: 2.0-3.0 Treatment of pulmonary embolism 2.0-3.0 Prevention of systemic embolism 2.0-3.0 HIGH RISK: Mechanical prosthetic valves 2.5-3.5 Performed By: #### C MP, GFR, CBC, MG, ADIFF, ANEU #### [address] [address] PT Coag (PPP) [Time] 11.7 s Normal 9.0-14.2 [facility] ([place]) Comment on above: Result Comment: Effe ctive 01/04/08, Protime results may be affected by some antibiotics (i.e. Ciprofloxacin, Azithromycin, Bactrim) which may potentiate the action of oral anticoagulants, with further increases in Protime/INR. Performed By: #### C MP, GFR, CBC, MG, ADIFF, ANEU #### [address] [address] .Auto Diffon 06-30-2023 Basophil, Absolute 0.0 10 3/mcL Normal 0.0-0.3 [facility] ([place]) Comment on above: Performed By: #### C MP, GFR, CBC, MG, ADIFF, ANEU #### [address] [address] Basophils/100 WBC (Bld) 0.1 % Normal 0.0-2.5 Pending Sale To [facility] ([place]) Comment on above: Performed By: #### C MP, GFR, CBC, MG, ADIFF, ANEU #### [address] [address] Eosinophil, Absolute 0.1 10 3/mcL Normal 0.0-0.7 [facility] ([place]) Comment on above: Performed By: #### C MP, GFR, CBC, MG, ADIFF, ANEU #### [address] [address] Eosinophils/100 WBC (Bld) 1.8 % Normal 0.0-6.0 Pending Sale To [facility] ([place]) Comment on above: Performed By: #### C MP, GFR, CBC, MG, ADIFF, ANEU #### [address] [address] Lymphocyte, Absolute 0.6 10 3/mcL Low 0.9-4.3 [facility] ([place]) Comment on above: Performed By: #### C MP, GFR, CBC, MG, ADIFF, ANEU #### [address] [address] Lymphocytes/100 WBC (Bld) 12.6 % Low 20.0-40.0 Pending Sale To [facility] ([place]) Comment on above: Performed By: #### C MP, GFR, CBC, MG, ADIFF, ANEU #### [address] [address] Monocyte, Absolute 0.5 10 3/mcL Normal 0.1-1.4 [facility] ([place]) Comment on above: Performed By: #### C MP, GFR, CBC, MG, ADIFF, ANEU #### [address] [address] Monocytes/100 WBC (Bld) 9.5 % Normal 2.0-13.0 Pending Sale To [facility] ([place]) Comment on above: Performed By: #### C MP, GFR, CBC, MG, ADIFF, ANEU #### [address] [address] Neutrophils/100 WBC (Bld) 76.0 % High 50.0-75.0 Pending Sale To [facility] ([place]) Comment on above: Performed By: #### C MP, GFR, CBC, MG, ADIFF, ANEU #### [address] [address] .GFRon 06-30-2023 GFR Non- 44 ml/min/1.73sqm Normal Pending Sale To [facility] ([place]) Comment on above: Result Comment: GFR Population mean for , Non- Americans Ages 20-29 = 116 mL/min/1.73 sq.m. Ages 30-39 = 107 mL/min/1.73 sq.m. Ages 40-49 = 99 mL/min/1.73 sq.m. Ages 50-59 = 93 mL/min/1.73 sq.m. Ages 60-69 = 85 mL/min/1.73 sq.m. Ages 70+ = 75 mL/min/1.73 sq.m. Chronic Kidney Disease: Less than 60 mL/min/1.73 square meters End Stage Renal Disease: Less than 15 mL/min/1.73 square meters Performed By: #### C MP, GFR, CBC, MG, ADIFF, ANEU #### [address] [address] GFR 54 ml/min/1.73sqm Normal Pending Sale To [facility] ([place]) Comment on above: Result Comment: GFR Population mean for , Non- Americans Ages 20-29 = 116 mL/min/1.73 sq.m. Ages 30-39 = 107 mL/min/1.73 sq.m. Ages 40-49 = 99 mL/min/1.73 sq.m. Ages 50-59 = 93 mL/min/1.73 sq.m. Ages 60-69 = 85 mL/min/1.73 sq.m. Ages 70+ = 75 mL/min/1.73 sq.m. Chronic Kidney Disease: Less than 60 mL/min/1.73 square meters End Stage Renal Disease: Less than 15 mL/min/1.73 square meters Performed By: #### C MP, GFR, CBC, MG, ADIFF, ANEU #### [address] [address] .NEUABSon 06-30-2023 Neutrophil, Absolute 3.8 10 3/mcL Normal 2.3-8.1 [facility] ([place]) Comment on above: Performed By: #### C MP, GFR, CBC, MG, ADIFF, ANEU #### [address] [address] ABO/Rh (Gel)on 06-30-2023 ABO/Rh Interp Positive Invalid Interpretation Code Pending Sale To [facility] ([place]) Comment on above: Performed By: #### C MP, GFR, CBC, MG, ADIFF, ANEU #### [address] [address] ABS (Gel)on 06-30-2023 ABSC Interp (Gel) Negative Normal Pending Sale To [facility] ([place]) Comment on above: Performed By: #### C MP, GFR, CBC, MG, ADIFF, ANEU #### [address] [address] BMPon 06-30-2023 BUN/Creatinine Ratio 15.0 ratio Normal 10.0-22.0 [facility] ([place]) Comment on above: Order Comment: withi n 1/2 hour of admission to [facility]SICU Performed By: #### C MP, GFR, CBC, MG, ADIFF, ANEU #### [address] [address] Calcium [Mass/Vol] 9.5 mg/dL Normal 8.7-10.4 [facility] ([place]) Comment on above: Order Comment: withi n 1/2 hour of admission to [facility]ICU Performed By: #### C MP, GFR, CBC, MG, ADIFF, ANEU #### [address] [address] Chloride [Moles/Vol] 109 mmol/L Normal 98-110 [facility] ([place]) Comment on above: Order Comment: withi n 1/2 hour of admission to [facility] Performed By: #### C MP, GFR, CBC, MG, ADIFF, ANEU #### [address] [address] CO2 [Moles/Vol] 29 mmol/L Normal 22-32 Pending Sale To [facility] ([place]) Comment on above: Order Comment: withi n 1/2 hour of admission to [facility] Performed By: #### C MP, GFR, CBC, MG, ADIFF, ANEU #### [address] [address] Creatinine [Mass/Vol] 1.53 mg/dL High 0.60-1.40 Pending Sale To [facility] ([place]) Comment on above: Order Comment: withi n 1/2 hour of admission to [facility] Performed By: #### C MP, GFR, CBC, MG, ADIFF, ANEU #### [address] [address] Electrolyte Balance 3.0 mEq/L Low 4.0-15.0 [facility] ([place]) Comment on above: Order Comment: withi n 1/2 hour of admission to [facility] Performed By: #### C MP, GFR, CBC, MG, ADIFF, ANEU #### [address] [address] Glucose [Mass/Vol] 95 mg/dL Normal 82-115 [facility] ([place]) Comment on above: Order Comment: withi n 1/2 hour of admission to [facility] Performed By: #### C MP, GFR, CBC, MG, ADIFF, ANEU #### [address] [address] Potassium [Moles/Vol] 4.9 mmol/L Normal 3.5-5.0 Pending Sale To [facility] ([place]) Comment on above: Order Comment: withi n 1/2 hour of admission to [facility] Result Comment: Spec imen slightly hemolyzed. Performed By: #### C MP, GFR, CBC, MG, ADIFF, ANEU #### [place] [address] Sodium [Moles/Vol] 141 mmol/L Normal 136-145 [facility] ([place]) Comment on above: Order Comment: withi n 1/2 hour of admission to [facility] Performed By: #### C MP, GFR, CBC, MG, ADIFF, ANEU #### [place] [id number] Urea nitrogen [Mass/Vol] 23.0 mg/dL High 8.0-22.0 Pending Sale To [facility] ([place]) Comment on above: Order Comment: withi n 1/2 hour of admission to [facility] Performed By: #### C MP, GFR, CBC, MG, ADIFF, ANEU #### [place] [address] CBCon 06-30-2023 Erythrocyte distribution width (RBC) [Ratio] 14.0 % Normal 11.5-15.5 Pending Sale To [facility] ([place]) Comment on above: Order Comment: withi n 1/2 hour of admission to [facility] Performed By: #### C MP, GFR, CBC, MG, ADIFF, ANEU #### [place] [address] Hematocrit (Bld) [Volume fraction] 35.0 % Low 40.0-52.0 Pending Sale To [facility] ([place]) Comment on above: Order Comment: withi n 1/2 hour of admission to [facility] Performed By: #### C MP, GFR, CBC, MG, ADIFF, ANEU #### [place] [id number] Hgb 12.6 G/dL Low 13.0-17.5 Pending Sale To [facility] ([place]) Comment on above: Order Comment: withi n 1/2 hour of admission to [facility] Performed By: #### C MP, GFR, CBC, MG, ADIFF, ANEU #### [place] [id number] MCH (RBC) [Entitic mass] 35.8 pg High 27.0-33.0 Pending Sale To [facility] ([place]) Comment on above: Order Comment: withi n 1/2 hour of admission to [facility] Performed By: #### C MP, GFR, CBC, MG, ADIFF, ANEU #### [address] [address] MCHC 35.9 G/dL Normal 32.0-36.0 Pending Sale To [facility] ([place] Comment on above: Order Comment: withi n 1/2 hour of admission to [facility] Performed By: #### C MP, GFR, CBC, MG, ADIFF, ANEU #### [place] [address] MCV (RBC) [Entitic vol] 99.5 fL Normal 81.0-100.0 Pending Sale To [facility] ([place] Comment on above: Order Comment: withi n 1/2 hour of admission to [facility] Performed By: #### C MP, GFR, CBC, MG, ADIFF, ANEU #### [place] [address] Platelet 138 10 3/mcL Low 150-450 Pending Sale To [facility] ([place]) Comment on above: Order Comment: withi n 1/2 hour of admission to [facility] Performed By: #### C MP, GFR, CBC, MG, ADIFF, ANEU #### [place] [address] Platelet mean volume (Bld) [Entitic vol] 6.9 fL Normal 6.4-10.5 Pending Sale To [facility] ([place] Comment on above: Order Comment: withi n 1/2 hour of admission to [facility] Performed By: #### C MP, GFR, CBC, MG, ADIFF, ANEU #### [place] [address] RBC 3.52 10 6/mcL Low 4.50-6.00 Pending Sale To [facility] ([place]) Comment on above: Order Comment: withi n 1/2 hour of admission to [facility] Performed By: #### C MP, GFR, CBC, MG, ADIFF, ANEU #### [place] [address] WBC 5.0 10 3/mcL Normal 4.5-10.8 Pending Sale To [facility] ([place]) Comment on above: Order Comment: withi n 1/2 hour of admission to [facility] Performed By: #### C MP, GFR, CBC, MG, ADIFF, ANEU #### [facility] [address] [place], [place] [id number] LABORATORYOrdered By: Radha bales on 06-30-2023 Blood Glucose Testing Reason Routine (06/30/23 9:15 PM) [facility] Work Phone: LABORATORYOrdered By: SYSTEM SYSTEM on 06-30-2023 Basophils (Bld) [#/Vol] 0.0 103/mcL Normal 0.0 - 0.3 10^3/mcL AH Workflow SS Basophils/100 WBC (Bld) 0.1 % Normal 0.0 - 2.5 % AH Workflow SS Calcium [Mass/Vol] 9.5 mg/dL Normal 8.7 - 10. 4 mg/dL AH ADM SS Chloride [Moles/Vol] 109 mmol/L Normal 98 - 11 0 mEq/L AH ADM SS CO2 [Moles/Vol] 29 mmol/L Normal 22 - 32 mEq/L AH ADM SS Creatinine [Mass/Vol] 1.53 mg/dL High 0.60 - 1.40 mg/dL AH ADM SS Electrolyte Balance 3.0 mEq/L Low 4.0 - 15 .0 mEq/L AH ADM SS Eosinophils (Bld) [#/Vol] 0.1 103/mcL Normal 0.0 - 0.7 10^3/mcL AH Workflow SS Eosinophils/100 WBC (Bld) 1.8 % Normal 0.0 - 6.0 % AH Workflow SS Erythrocyte distribution width (RBC) [Ratio] 14.0 % Normal 11.5 - 15.5 % AH Workflow SS GFR/1.73 sq M.predicted among blacks MDRD (S/P/Bld) [Vol rate/Area] 54 ml/min/1.73sqm Invalid Interpretation Code AH ADM SS Comment on above: Interpretive Data: GFR Population mean for , Non- Americans Ages 20-29 = 116 mL/min/1.73 sq.m. Ages 30-39 = 107 mL/min/1.73 sq.m. Ages 40-49 = 99 mL/min/1.73 sq.m. Ages 50-59 = 93 mL/min/1.73 sq.m. Ages 60-69 = 85 mL/min/1.73 sq.m. Ages 70+ = 75 mL/min/1.73 sq.m. Chronic Kidney Disease: Less than 60 mL/min/1.73 square meters End Stage Renal Disease: Less than 15 mL/min/1.73 square meters GFR/1.73 sq M.predicted among non-blacks MDRD (S/P/Bld) [Vol rate/Area] 44 ml/min/1.73sqm Invalid Interpretation Code ADM SS Comment on above: Interpretive Data: GFR Population mean for , Non- Americans Ages 20-29 = 116 mL/min/1.73 sq.m. Ages 30-39 = 107 mL/min/1.73 sq.m. Ages 40-49 = 99 mL/min/1.73 sq.m. Ages 50-59 = 93 mL/min/1.73 sq.m. Ages 60-69 = 85 mL/min/1.73 sq.m. Ages 70+ = 75 mL/min/1.73 sq.m. Chronic Kidney Disease: Less than 60 mL/min/1.73 square meters End Stage Renal Disease: Less than 15 mL/min/1.73 square meters Glucose [Mass/Vol] 95 mg/dL Normal 82 - 115 mg/dL ADM SS Hematocrit (Bld) [Volume fraction] 35.0 % Low 40.0 - 52.0 % AH Workflow SS Hemoglobin (Bld) [Mass/Vol] 12.6 G/dL Low 13.0 - 17.5 G/dL AH Workflow SS Lymphocytes (Bld) [#/Vol] 0.6 103/mcL Low 0.9 - 4.3 10^3/mcL AH Workflow SS Lymphocytes/100 WBC (Bld) 12.6 % Low 20.0 - 40.0 % AH Workflow SS MCH (RBC) [Entitic mass] 35.8 pg High 27.0 - 33.0 pg AH Workflow SS MCHC 35.9 G/dL Normal 32.0 - 36.0 G/dL AH Workflow SS MCV (RBC) [Entitic vol] 99.5 fL Normal 81.0 - 100.0 fL Workflow SS Monocytes (Bld) [#/Vol] 0.5 103/mcL Normal 0.1 - 1.4 10^3/mcL AH Workflow SS Monocytes/100 WBC (Bld) 9.5 % Normal 2.0 - 13.0 % AH Workflow SS Neutrophils (Bld) [#/Vol] 3.8 103/mcL Normal 2.3 - 8.1 10^3/mcL AH Workflow SS Neutrophils/100 WBC (Bld) 76.0 % High 50.0 - 75.0 % AH Workflow SS Platelet mean volume (Bld) [Entitic vol] 6.9 fL Normal 6.4 - 10.5 fL AH Workflow SS Platelets (Bld) [#/Vol] 138 103/mcL Low 150 - 450 10^3/mcL AH Workflow SS Potassium [Moles/Vol] 4.9 mmol/L Normal 3.5 - 5.0 mEq/L AH ADM SS Comment on above: Result Comment: Spec imen slightly hemolyzed. RBC (Bld) [#/Vol] 3.52 106/mcL Low 4.50 - 6.0 0 10^6/mcL AH Workflow SS Sodium [Moles/Vol] 141 mmol/L Normal 136 - 145 mEq/L AH ADM SS Urea nitrogen [Mass/Vol] 23.0 mg/dL High 8.0 - 22.0 mg/dL AH ADM SS Urea nitrogen/Creatinine [Mass ratio] 15.0 ratio Normal 10.0 - 22.0 ratio AH ADM SS WBC (Bld) [#/Vol] 5.0 103/mcL Normal 4.5 - 10.8 10^3/mcL Workflow SS LABORATORYOrdered By: Kunal Koch on 06-30-2023 ABO and Rh group Nom (Bld) Blood group A Rh(D) positive Invalid Interpretation Code AH BB Auto SS Blood group antibody screen Ql Negative ABSC (06/30/23 9:10 AM) Normal BB Auto SS CT ANGIOGRAPHY TAVR PLANNING on 06-25-2023 CT ANGIOGRAPHY TAVR PLANNING ORIGINAL EXAMINATION: 1. CTA HEART WITH IV CONTRAST 2. CTA CHEST WITH IV CONTRAST 3. CTA ABDOMEN & PELVIS WITH IV CONTRAST TECHNIQUE: 1. Noncontrast CT of the heart was obtained for calcium scoring (if performed). 2. CTA heart with IV contrast performed using retrospective ECG gating from the superior mediastinum to about 1 cm above the AV to the diaphragm. 3. CTA chest/abdomen/pelvis with IV contrast performed. 4. Aortic root measurements performed at 35% RR interval. Automated exposure control, iterative reconstruction, and/or weight based adjustment of the mA/kV was utilized to reduce the radiation dose to as low as reasonably achievable. Multiplanar and 3D reconstructions were created and reviewed on a separate workstation. COMPLICATIONS: None ACQUISITION HR (bpm): 44, Regular TECHNICAL QUALITY: Acceptable LIMITATIONS: None Lumen diameter measured as the narrowest point of the artery. STENOSIS: Normal: 0% stenosis Minimal: <25% stenosis Mild: 25-49% Moderate: 50-69% Severe: >=70% Abbreviations: LM: left main, RCA: right coronary artery, HR: heart rate, PA: pulmonary artery, Asc: ascending, Ao: Aorta, STJ: sinotubular junction, SoV: sinuses of Valsalva, LVOT: left ventricular outflow tract; Margaret: diameter; Ht: height; NC: non-coronary; ABD: abdominal; AV: aortic valve; MV: mitral valve; MARCOS: common iliac artery; EIA: external iliac artery; MILITARY TECHNOLOGY SPECIALIST: common femoral artery COMPARISON: None HISTORY: ORDERING SYSTEM PROVIDED HISTORY: Reason for Exam: severe coronary artery disease, hypertension, hyperlipidemia. FINDINGS: PRE-TAVR VASCULAR: Unless specified, all measurements are in mm. SoV Diameters RT: 31.3 NC: 33.5 LT: 34.1 3-cusp angulation (degrees): INDIAN 1.5, AUDIO VIDEO REPAIRER 1.4 Asc Ao Margaret: 33.9 x 31.2 (@ 4 cm distal to annulus) STJ Margaret: 34.8 x 30.1 SoV Ht: 19.1 LVOT Margaret: 30.4 x 22.6 ANNULUS Diameter: 30.2 x 21.8 Area (mm^2): 483 Perimeter: 81.2 Height RCA: 16.2 Height LM: 11.9 ABD Ao Dmin: 17 RIGHT Dmin: MARCOS: 14.7 EIA: 9.7 MILITARY TECHNOLOGY SPECIALIST: 9.1 LEFT Dmin: MARCOS: 12.1 EIA: 9.6 MILITARY TECHNOLOGY SPECIALIST: 8.8 AORTIC VALVE Calcium Score: 5390 Calcium Vol (mm^3): 3524 Cusp #: Tricuspid Cusp thickening: Mild CALCIUM Cusp: Moderate. No definite severely calcified cusp which may obstruct coronary ostia. Annulus: Minimal Distribution: Asymmetric without extension to LVOT CORONARY DOMINANCE: Right ANOMALIES: None. LM gives rise to the LAD, RI, and LCx. CALCIUM: Severe GRAFTS: [place] to LAD territory and several aortic grafts to the diagonal and circumflex territories. NON-CORONARY HEART: Moderate cardiomegaly. MITRAL VALVE THICKENING: None CALCIFICATION: Minimal PERICARDIUM: Contour preserved. EFFUSION: None THICKENING: None. CALCIFICATION: None MAIN PA: Non-dilated. No embolus centrally. THORACIC Ao ASCENDING: Diameter: Non-aneurysmal Calcified plaque: None Tortuosity: None ARCH: Branches: 2-vessel, Common origin of right brachiocephalic & left common carotid arteries Diameter: Non-aneurysmal Calcified plaque: Minimal Tortuosity: None DESCENDING: Diameter: Non-aneurysmal Calcified plaque: Minimal Tortuosity: None ABD Ao SUPRARENAL Diameter: Non-aneurysmal Calcified plaque: Moderate Tortuosity: None INFRARENAL Diameter: Non-aneurysmal Calcified plaque: Moderate Tortuosity: None Celiac: No severe stenosis. SMA: No severe stenosis. SAM: No severe stenosis. RIGHT Renal: No severe stenosis. Single renal artery. LEFT Renal: No severe stenosis. Dual renal arteries. 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 No consolidation. There is mild lower lobe bronchial wall thickening. AIRWAYS: Trachea and mainstem bronchi are patent. PLEURA: No effusion. No pneumothorax. LYMPHATIC: No hilar, mediastinal, or axillary adenopathy. BONES: No suspicious osseous lesion. Sternotomy changes. ABD/PELVIS LIVER: Unremarkable. BILIARY: No extra or intrahepatic duct dilatation. GALLBLADDER: Unremarkable. SPLEEN: Not enlarged. No lesions. RT ADRENAL: Unremarkable. LT ADRENAL: Unremarkable. (more content not included)... Normal Pending Sale To [facility] ([place]) .Auto Diffon 06-24-2023 Basophil, Absolute 0.0 10 3/mcL Normal 0.0-0.2 [facility] ([place]) Comment on above: Performed By: #### C MP, GFR, CBC, MG, ADIFF, ANEU #### [address] [address] Basophils/100 WBC (Bld) 0.3 % Normal 0.0-2.5 Pending Sale To [facility] ([place]) Comment on above: Performed By: #### C MP, GFR, CBC, MG, ADIFF, ANEU #### [address] [address] Eosinophil, Absolute 0.2 10 3/mcL Normal 0.0-0.4 [facility] ([place]) Comment on above: Performed By: #### C MP, GFR, CBC, MG, ADIFF, ANEU #### [address] [address] Eosinophils/100 WBC (Bld) 4.9 % Normal 0.0-7.0 Pending Sale To [facility] ([place]) Comment on above: Performed By: #### C MP, GFR, CBC, MG, ADIFF, ANEU #### [address] [address] Lymphocyte, Absolute 1.0 10 3/mcL Normal 0.8-3.9 [facility] ([place]) Comment on above: Performed By: #### C MP, GFR, CBC, MG, ADIFF, ANEU #### [address] [address] Lymphocytes/100 WBC (Bld) 25.0 % Normal 10.0-50.0 Pending Sale To [facility] ([place]) Comment on above: Performed By: #### C MP, GFR, CBC, MG, ADIFF, ANEU #### [address] [address] Monocyte, Absolute 0.4 10 3/mcL Normal 0.2-1.0 [facility] ([place]) Comment on above: Performed By: #### C MP, GFR, CBC, MG, ADIFF, ANEU #### [address] [address] Monocytes/100 WBC (Bld) 9.6 % Normal 1.7-13.0 Pending Sale To [facility] ([place]) Comment on above: Performed By: #### C MP, GFR, CBC, MG, ADIFF, ANEU #### [address] [address] Neutrophils/100 WBC (Bld) 60.2 % Normal 37.0-80.0 Pending Sale To [facility] ([place]) Comment on above: Performed By: #### C MP, GFR, CBC, MG, ADIFF, ANEU #### [address] [address] .GFRon 06-24-2023 GFR Non- 44 ml/min/1.73sqm Normal Pending Sale To [facility] ([place]) Comment on above: Result Comment: GFR Population mean for , Non- Americans Ages 20-29 = 116 mL/min/1.73 sq.m. Ages 30-39 = 107 mL/min/1.73 sq.m. Ages 40-49 = 99 mL/min/1.73 sq.m. Ages 50-59 = 93 mL/min/1.73 sq.m. Ages 60-69 = 85 mL/min/1.73 sq.m. Ages 70+ = 75 mL/min/1.73 sq.m. Chronic Kidney Disease: Less than 60 mL/min/1.73 square meters End Stage Renal Disease: Less than 15 mL/min/1.73 square meters Performed By: #### C MP, GFR, CBC, MG, ADIFF, ANEU #### [address] [address] GFR 53 ml/min/1.73sqm Normal Pending Sale To [facility] ([place]) Comment on above: Result Comment: GFR Population mean for , Non- Americans Ages 20-29 = 116 mL/min/1.73 sq.m. Ages 30-39 = 107 mL/min/1.73 sq.m. Ages 40-49 = 99 mL/min/1.73 sq.m. Ages 50-59 = 93 mL/min/1.73 sq.m. Ages 60-69 = 85 mL/min/1.73 sq.m. Ages 70+ = 75 mL/min/1.73 sq.m. Chronic Kidney Disease: Less than 60 mL/min/1.73 square meters End Stage Renal Disease: Less than 15 mL/min/1.73 square meters Performed By: #### C MP, GFR, CBC, MG, ADIFF, ANEU #### [address] [address] .NEUABSon 06-24-2023 Neutrophil, Absolute 2.4 10 3/mcL Low 2.9-6.2 [facility] ([place]) Comment on above: Performed By: #### C MP, GFR, CBC, MG, ADIFF, ANEU #### [address] [address] BMPon 06-24-2023 BUN/Creatinine Ratio 14 ratio Normal 7-27 [facility] ([place]) Comment on above: Performed By: #### C MP, GFR, CBC, MG, ADIFF, ANEU #### [place] [address] Calcium [Mass/Vol] 9.3 mg/dL Normal 8.4-10.2 [facility] ([place]) Comment on above: Performed By: #### C MP, GFR, CBC, MG, ADIFF, ANEU #### [place] [address] Chloride [Moles/Vol] 106 mmol/L Normal 98-107 [facility] ([place]) Comment on above: Performed By: #### C MP, GFR, CBC, MG, ADIFF, ANEU #### [place] [address] CO2 [Moles/Vol] 28 mmol/L Normal 23-31 Pending Sale To [facility] [place] Comment on above: Performed By: #### C MP, GFR, CBC, MG, ADIFF, ANEU #### [address] [address] Creatinine [Mass/Vol] 1.55 mg/dL High 0.70-1.30 Pending Sale To [facility] ([place]) Comment on above: Performed By: #### C MP, GFR, CBC, MG, ADIFF, ANEU #### [place] [address] Electrolyte Balance 9.0 mEq/L Normal 4.0-15.0 [facility] ([place]) Comment on above: Performed By: #### C MP, GFR, CBC, MG, ADIFF, ANEU #### [place] [address] Glucose [Mass/Vol] 98 mg/dL Normal 83-110 [facility] ([place]) Comment on above: Performed By: #### C MP, GFR, CBC, MG, ADIFF, ANEU #### [place] [id number] Potassium [Moles/Vol] 4.3 mmol/L Normal 3.5-5.1 Pending Sale To [facility] ([place]) Comment on above: Performed By: #### C MP, GFR, CBC, MG, ADIFF, ANEU #### [place] [id number] Sodium [Moles/Vol] 143 mmol/L Normal 136-145 [facility] ([place]) Comment on above: Performed By: #### C MP, GFR, CBC, MG, ADIFF, ANEU #### [place] [address] Urea nitrogen [Mass/Vol] 21 mg/dL High 7-18 Pending Sale To [facility] ([place]) Comment on above: Performed By: #### C MP, GFR, CBC, MG, ADIFF, ANEU #### [place] [address] CBCon 06-24-2023 Erythrocyte distribution width (RBC) [Ratio] 13.7 % Normal 11.5-14.5 Pending Sale To [facility] ([place] Comment on above: Performed By: #### C MP, GFR, CBC, MG, ADIFF, ANEU #### [place] [address] Hematocrit (Bld) [Volume fraction] 37.3 % Low 42.0-52.0 Pending Sale To [facility] [place] Comment on above: Performed By: #### C MP, GFR, CBC, MG, ADIFF, ANEU #### [place] [address] Hgb 13.3 G/dL Low 14.0-18.0 Pending Sale To [facility] ([place] Comment on above: Performed By: #### C MP, GFR, CBC, MG, ADIFF, ANEU #### [place] [address] MCH (RBC) [Entitic mass] 35.1 pg High 27.0-31.2 Pending Sale To [facility] ([place] Comment on above: Performed By: #### C MP, GFR, CBC, MG, ADIFF, ANEU #### [place] [address] MCHC 35.7 G/dL High 31.8-35.4 Pending Sale To [facility] ([place] Comment on above: Performed By: #### C MP, GFR, CBC, MG, ADIFF, ANEU #### [place] [address] MCV (RBC) [Entitic vol] 98.6 fL High 80.0-94.0 Pending Sale To [facility] ([place] Comment on above: Performed By: #### C MP, GFR, CBC, MG, ADIFF, ANEU #### [place] [address] Platelet 169 10 3/mcL Normal 130-400 Pending Sale To [facility] ([place] Comment on above: Performed By: #### C MP, GFR, CBC, MG, ADIFF, ANEU #### [place] [address] Platelet mean volume (Bld) [Entitic vol] 7.0 fL Low 7.4-10.4 Pending Sale To [facility] ([place] Comment on above: Performed By: #### C MP, GFR, CBC, MG, ADIFF, ANEU #### [place] [address] RBC 3.79 10 6/mcL Low 4.04-6.13 Pending Sale To [facility] ([place] Comment on above: Performed By: #### C MP, GFR, CBC, MG, ADIFF, ANEU #### [place] [address] WBC 4.1 10 3/mcL Low 4.6-10.8 Pending Sale To [facility] ([place]) Comment on above: Performed By: #### C MP, GFR, CBC, MG, ADIFF, ANEU #### [place] [address] LABORATORYOrdered By: SYSTEM SYSTEM on 06-24-2023 Basophil, Absolute 0.0 103/mcL Normal 0.0 - 0.2 10^3/mcL AO Workflow SS Basophils/100 WBC (Bld) 0.3 % Normal 0.0 - 2.5 % AO Workflow SS Calcium [Mass/Vol] 9.3 mg/dL Normal 8.4 - 10. 2 mg/dL AO ADM SS Chloride [Moles/Vol] 106 mmol/L Normal 98 - 10 7 mmol/L AO ADM SS CO2 [Moles/Vol] 28 mmol/L Normal 23 - 31 mmol/L AO ADM SS Creatinine [Mass/Vol] 1.55 mg/dL High 0.70 - 1.30 mg/dL AO ADM SS Electrolyte Balance 9.0 mEq/L Normal 4.0 - 15 .0 mEq/L AO ADM SS Eosinophil, Absolute 0.2 103/mcL Normal 0.0 - 0 .4 10^3/mcL AO Workflow SS Eosinophils/100 WBC (Bld) 4.9 % Normal 0.0 - 7.0 % AO Workflow SS Erythrocyte distribution width (RBC) [Ratio] 13.7 % Normal 11.5 - 14.5 % AO Workflow SS GFR/1.73 sq M.predicted among blacks MDRD (S/P/Bld) [Vol rate/Area] 53 ml/min/1.73sqm Invalid Interpretation Code AO Chemistry S Comment on above: Interpretive Data: GFR Population mean for , Non- Americans Ages 20-29 = 116 mL/min/1.73 sq.m. Ages 30-39 = 107 mL/min/1.73 sq.m. Ages 40-49 = 99 mL/min/1.73 sq.m. Ages 50-59 = 93 mL/min/1.73 sq.m. Ages 60-69 = 85 mL/min/1.73 sq.m. Ages 70+ = 75 mL/min/1.73 sq.m. Chronic Kidney Disease: Less than 60 mL/min/1.73 square meters End Stage Renal Disease: Less than 15 mL/min/1.73 square meters GFR/1.73 sq M.predicted among non-blacks MDRD (S/P/Bld) [Vol rate/Area] 44 ml/min/1.73sqm Invalid Interpretation Code AO Chemistry S Comment on above: Interpretive Data: GFR Population mean for , Non- Americans Ages 20-29 = 116 mL/min/1.73 sq.m. Ages 30-39 = 107 mL/min/1.73 sq.m. Ages 40-49 = 99 mL/min/1.73 sq.m. Ages 50-59 = 93 mL/min/1.73 sq.m. Ages 60-69 = 85 mL/min/1.73 sq.m. Ages 70+ = 75 mL/min/1.73 sq.m. Chronic Kidney Disease: Less than 60 mL/min/1.73 square meters End Stage Renal Disease: Less than 15 mL/min/1.73 square meters Glucose [Mass/Vol] 98 mg/dL Normal 83 - 110 mg/dL AO ADM SS Hematocrit (Bld) [Volume fraction] 37.3 % Low 42.0 - 52.0 % AO Workflow SS Hemoglobin (Bld) [Mass/Vol] 13.3 G/dL Low 14.0 - 18.0 G/dL AO Workflow SS Lymphocyte, Absolute 1.0 103/mcL Normal 0.8 - 3 .9 10^3/mcL AO Workflow SS Lymphocytes/100 WBC (Bld) 25.0 % Normal 10.0 - 50.0 % AO Workflow SS MCH (RBC) [Entitic mass] 35.1 pg High 27.0 - 31.2 pg AO Workflow SS MCHC 35.7 G/dL High 31.8 - 35.4 G/dL AO Workflow SS MCV (RBC) [Entitic vol] 98.6 fL High 80.0 - 94.0 fL AO Workflow SS Monocyte, Absolute 0.4 103/mcL Normal 0.2 - 1.0 10^3/mcL AO Workflow SS Monocytes/100 WBC (Bld) 9.6 % Normal 1.7 - 13.0 % AO Workflow SS Natriuretic peptide.B prohormone N-Terminal [Mass/Vol] 469 pg/mL High 0 - 450 pg/mL AO ADM SS Comment on above: Interpretive Data: N T-proBNP results of less than 300 pg/mL effectively rules out acute congestive heart failure with 99% negative predictive value. Neutrophil, Absolute 2.4 103/mcL Low 2.9 - 6 .2 10^3/mcL AO Workflow SS Neutrophils/100 WBC (Bld) 60.2 % Normal 37.0 - 80.0 % AO Workflow SS Platelet mean volume (Bld) [Entitic vol] 7.0 fL Low 7.4 - 10.4 fL AO Workflow SS Platelets (Bld) [#/Vol] 169 103/mcL Normal 130 - 400 10^3/mcL AO Workflow SS Potassium [Moles/Vol] 4.3 mmol/L Normal 3.5 - 5.1 mmol/L AO ADM SS RBC (Bld) [#/Vol] 3.79 106/mcL Low 4.04 - 6.1 3 10^6/mcL AO Workflow SS Sodium [Moles/Vol] 143 mmol/L Normal 136 - 145 mmol/L AO ADM SS Urea nitrogen [Mass/Vol] 21 mg/dL High 7 - 18 mg/dL AO ADM SS Urea nitrogen/Creatinine [Mass ratio] 14 ratio Normal 7 - 27 ratio AO ADM SS WBC (Bld) [#/Vol] 4.1 103/mcL Low 4.6 - 10.8 10^3/mcL AO Workflow SS PBNPon 06-24-2023 Natriuretic peptide B (Bld) [Mass/Vol] 469 pg/mL High 0-450 Pending Sale To [facility] ([place]) Comment on above: Result Comment: NT-p roBNP results of less than 300 pg/mL effectively rules out acute congestive heart failure with 99% negative predictive value. Performed By: #### C MP, GFR, CBC, MG, ADIFF, ANEU #### [place] [address] XR PANOREX/ORTHOPANTOGRAMon 05-29-2023 XR PANOREX/ORTHOPANTOGR AM ORIGINAL EXAMINATION: ONE XRAY VIEW OF THE PANOREX 05/28/2023 10:08 am COMPARISON: None. HISTORY: ORDERING SYSTEM PROVIDED HISTORY: Reason for Exam: ro abscess prior to AVR FINDINGS: No fracture or bone destruction is present. The mandibular condyles appear normally located. No periapical lucencies or dental fractures. No other contributory finding. Multiple dental restorations noted. IMPRESSION: No plain film evidence of dental abscess. Interpreted by: Nathan Segovia MD Preliminary Report By: Nathan Segovia MD Electronically signed By Nathan Segovia MD Dictated Date: 05/29/2023 9:13:47 AM Prelim Date: 05/29/2023 9:17:06 AM Sign Date: 05/29/2023 9:17:06 AM Ordering Provider: SIMI Ayon Pending Sale To [facility] ([place]) .Auto Diffon 05-27-2023 Basophil, Absolute 0.0 10 3/mcL Normal 0.0-0.2 [facility] ([place]) Comment on above: Performed By: #### C BC, GFR, ADIFF, A1C, ANEU, LIPID, CMP #### [address] [address] Basophils/100 WBC (Bld) 0.5 % Normal 0.0-2.5 Pending Sale To [facility] ([place]) Comment on above: Performed By: #### C BC, GFR, ADIFF, A1C, ANEU, LIPID, CMP #### [address] [address] Eosinophil, Absolute 0.2 10 3/mcL Normal 0.0-0.4 [facility] ([place]) Comment on above: Performed By: #### C BC, GFR, ADIFF, A1C, ANEU, LIPID, CMP #### [address] [address] Eosinophils/100 WBC (Bld) 3.9 % Normal 0.0-7.0 Pending Sale To [facility] ([place] Comment on above: Performed By: #### C BC, GFR, ADIFF, A1C, ANEU, LIPID, CMP #### [address] [address] Lymphocyte, Absolute 1.0 10 3/mcL Normal 0.8-3.9 [facility] ([place]) Comment on above: Performed By: #### C BC, GFR, ADIFF, A1C, ANEU, LIPID, CMP #### [address] [address] Lymphocytes/100 WBC (Bld) 21.6 % Normal 10.0-50.0 Pending Sale To [facility] ([place] Comment on above: Performed By: #### C BC, GFR, ADIFF, A1C, ANEU, LIPID, CMP #### [address] [address] Monocyte, Absolute 0.4 10 3/mcL Normal 0.2-1.0 [facility] ([place]) Comment on above: Performed By: #### C BC, GFR, ADIFF, A1C, ANEU, LIPID, CMP #### [address] [address] Monocytes/100 WBC (Bld) 8.9 % Normal 1.7-13.0 Pending Sale To [facility] ([place] Comment on above: Performed By: #### C BC, GFR, ADIFF, A1C, ANEU, LIPID, CMP #### [address] [address] Neutrophils/100 WBC (Bld) 65.1 % Normal 37.0-80.0 Pending Sale To [facility] ([place] Comment on above: Performed By: #### C BC, GFR, ADIFF, A1C, ANEU, LIPID, CMP #### [address] [address] .GFRon 05-27-2023 GFR 49 ml/min/1.73sqm Normal Pending Sale To [facility] ([place]) Comment on above: Result Comment: GFR Population mean for , Non- Americans Ages 20-29 = 116 mL/min/1.73 sq.m. Ages 30-39 = 107 mL/min/1.73 sq.m. Ages 40-49 = 99 mL/min/1.73 sq.m. Ages 50-59 = 93 mL/min/1.73 sq.m. Ages 60-69 = 85 mL/min/1.73 sq.m. Ages 70+ = 75 mL/min/1.73 sq.m. Chronic Kidney Disease: Less than 60 mL/min/1.73 square meters End Stage Renal Disease: Less than 15 mL/min/1.73 square meters Performed By: #### C MP, GFR, CBC, MG, ADIFF, ANEU #### [address] [address] GFR Non- 40 ml/min/1.73sqm Normal Pending Sale To [facility] ([place]) Comment on above: Result Comment: GFR Population mean for , Non- Americans Ages 20-29 = 116 mL/min/1.73 sq.m. Ages 30-39 = 107 mL/min/1.73 sq.m. Ages 40-49 = 99 mL/min/1.73 sq.m. Ages 50-59 = 93 mL/min/1.73 sq.m. Ages 60-69 = 85 mL/min/1.73 sq.m. Ages 70+ = 75 mL/min/1.73 sq.m. Chronic Kidney Disease: Less than 60 mL/min/1.73 square meters End Stage Renal Disease: Less than 15 mL/min/1.73 square meters Performed By: #### C MP, GFR, CBC, MG, ADIFF, ANEU #### [address] [address] .NEUABSon 05-27-2023 Neutrophil, Absolute 3.0 10 3/mcL Normal 2.9-6.2 [facility] ([place]) Comment on above: Performed By: #### C BC, GFR, ADIFF, A1C, ANEU, LIPID, CMP #### [address] [address] A1Con 05-27-2023 HbA1c (Bld) [Mass fraction] 5.3 % Normal 4.3-6.4 Pending Sale To [facility] ([place] Comment on above: Performed By: #### C MP, GFR, CBC, MG, ADIFF, ANEU #### [address] [address] CBCon 05-27-2023 Erythrocyte distribution width (RBC) [Ratio] 13.5 % Normal 11.5-14.5 Pending Sale To [facility] ([place] Comment on above: Performed By: #### C BC, GFR, ADIFF, A1C, ANEU, LIPID, CMP #### [address] [address] Hematocrit (Bld) [Volume fraction] 36.9 % Low 42.0-52.0 Pending Sale To [facility] ([place] Comment on above: Performed By: #### C BC, GFR, ADIFF, A1C, ANEU, LIPID, CMP #### [address] [address] Hgb 13.1 G/dL Low 14.0-18.0 Pending Sale To [facility] ([place] Comment on above: Performed By: #### C BC, GFR, ADIFF, A1C, ANEU, LIPID, CMP #### [address] [address] MCH (RBC) [Entitic mass] 34.9 pg High 27.0-31.2 Pending Sale To [facility] ([place]) Comment on above: Performed By: #### C BC, GFR, ADIFF, A1C, ANEU, LIPID, CMP #### [address] [address] MCHC 35.5 G/dL High 31.8-35.4 Pending Sale To [facility] ([place]) Comment on above: Performed By: #### C BC, GFR, ADIFF, A1C, ANEU, LIPID, CMP #### [address] [address] MCV (RBC) [Entitic vol] 98.1 fL High 80.0-94.0 Pending Sale To [facility] ([place] Comment on above: Performed By: #### C BC, GFR, ADIFF, A1C, ANEU, LIPID, CMP #### [address] [address] Platelet 168 10 3/mcL Normal 130-400 Pending Sale To [facility] ([place] Comment on above: Performed By: #### C BC, GFR, ADIFF, A1C, ANEU, LIPID, CMP #### [address] [address] Platelet mean volume (Bld) [Entitic vol] 6.7 fL Low 7.4-10.4 Pending Sale To [facility] ([place] Comment on above: Performed By: #### C BC, GFR, ADIFF, A1C, ANEU, LIPID, CMP #### [address] [address] RBC 3.76 10 6/mcL Low 4.04-6.13 Pending Sale To [facility] ([place] Comment on above: Performed By: #### C BC, GFR, ADIFF, A1C, ANEU, LIPID, CMP #### [address] [address] WBC 4.7 10 3/mcL Normal 4.6-10.8 Pending Sale To [facility] ([place] Comment on above: Performed By: #### C BC, GFR, ADIFF, A1C, ANEU, LIPID, CMP #### [address] [address] CMPon 05-27-2023 Albumin Level 3.8 G/dL Normal 3.4-4.8 Pending Sale To [facility] ([place] Comment on above: Performed By: #### C BC, GFR, ADIFF, A1C, ANEU, LIPID, CMP #### [address] [address] Albumin/Globulin [Mass ratio] 1.2 {ratio} Normal 1.1-2.5 Pending Sale To [facility] ([place] Comment on above: Performed By: #### C BC, GFR, ADIFF, A1C, ANEU, LIPID, CMP #### [address] [address] ALP [Catalytic activity/Vol] 75 U/L Normal 40-135 Pending Sale To [facility] ([place] Comment on above: Performed By: #### C BC, GFR, ADIFF, A1C, ANEU, LIPID, CMP #### [address] [address] ALT [Catalytic activity/Vol] 20 U/L Normal 16-63 Pending Sale To [facility] ([place] Comment on above: Performed By: #### C BC, GFR, ADIFF, A1C, ANEU, LIPID, CMP #### [address] [address] AST [Catalytic activity/Vol] 15 U/L Normal 10-40 Pending Sale To [facility] ([place] Comment on above: Performed By: #### C BC, GFR, ADIFF, A1C, ANEU, LIPID, CMP #### [address] [address] Bili Total 0.8 mg/dL Normal 0.2-1.0 Pending Sale To [facility] ([place]) Comment on above: Result Comment: Use of this assay is not recommended for patients undergoing treatment with eltrombopag due to the potential for falsely elevated results. Performed By: #### C BC, GFR, ADIFF, A1C, ANEU, LIPID, CMP #### [address] [address] BUN/Creatinine Ratio 17 ratio Normal 7-27 [facility] ([place]) Comment on above: Performed By: #### C BC, GFR, ADIFF, A1C, ANEU, LIPID, CMP #### [address] [address] Calcium [Mass/Vol] 9.4 mg/dL Normal 8.4-10.2 [facility] ([place]) Comment on above: Performed By: #### C BC, GFR, ADIFF, A1C, ANEU, LIPID, CMP #### [address] [address] Chloride [Moles/Vol] 106 mmol/L Normal 98-107 [facility] ([place]) Comment on above: Performed By: #### C BC, GFR, ADIFF, A1C, ANEU, LIPID, CMP #### [address] [address] CO2 [Moles/Vol] 28 mmol/L Normal 23-31 Pending Sale To [facility] ([place] Comment on above: Performed By: #### C BC, GFR, ADIFF, A1C, ANEU, LIPID, CMP #### [address] [address] Creatinine [Mass/Vol] 1.67 mg/dL High 0.70-1.30 Pending Sale To [facility] ([place] Comment on above: Performed By: #### C BC, GFR, ADIFF, A1C, ANEU, LIPID, CMP #### [address] [address] Electrolyte Balance 9.0 mEq/L Normal 4.0-15.0 [facility] ([place]) Comment on above: Performed By: #### C BC, GFR, ADIFF, A1C, ANEU, LIPID, CMP #### [address] [address] Globulin 3.3 G/dL Normal Pending Sale To [facility] ([place] Comment on above: Performed By: #### C BC, GFR, ADIFF, A1C, ANEU, LIPID, CMP #### [address] [address] Glucose [Mass/Vol] 102 mg/dL Normal 83-110 [facility] ([place]) Comment on above: Performed By: #### C BC, GFR, ADIFF, A1C, ANEU, LIPID, CMP #### [address] [address] Potassium [Moles/Vol] 4.4 mmol/L Normal 3.5-5.1 Pending Sale To [facility] ([place] Comment on above: Performed By: #### C BC, GFR, ADIFF, A1C, ANEU, LIPID, CMP #### [address] [address] Sodium [Moles/Vol] 143 mmol/L Normal 136-145 [facility] ([place]) Comment on above: Performed By: #### C BC, GFR, ADIFF, A1C, ANEU, LIPID, CMP #### [address] [address] Total Protein 7.1 G/dL Normal 6.4-8.2 Pending Sale To [facility] ([place] Comment on above: Performed By: #### C BC, GFR, ADIFF, A1C, ANEU, LIPID, CMP #### [address] [address] Urea nitrogen [Mass/Vol] 28 mg/dL High 7-18 Pending Sale To [facility] ([place] Comment on above: Performed By: #### C BC, GFR, ADIFF, A1C, ANEU, LIPID, CMP #### [address] [address] LIPIDon 05-27-2023 Cholesterol [Mass/Vol] 155 mg/dL Normal 0-200 Pending Sale To [facility] ([place] Comment on above: Result Comment: Chol esterol Reference Interval: Less than 200 Desirable 200-239 Borderline high risk 240 and above High risk Performed By: #### C MP, GFR, CBC, MG, ADIFF, ANEU #### [facility] [address] [place] [address] Cholesterol in HDL [Mass/Vol] 60 mg/dL Normal 40-60 Pending Sale To [facility] ([place] Comment on above: Performed By: #### C MP, GFR, CBC, MG, ADIFF, ANEU #### [place] [address] Cholesterol in LDL [Mass/Vol] 79 mg/dL Normal 0-130 Pending Sale To [facility] ([place] Comment on above: Performed By: #### C MP, GFR, CBC, MG, ADIFF, ANEU #### [place] [address] Triglyceride [Mass/Vol] 81 mg/dL Normal 0-150 Pending Sale To [facility] ([place]) Comment on above: Result Comment: Trig lyceride Reference Interval: Less than 150 Normal 150-199 Borderline high risk 200-499 High risk 500 or higher Very high risk Performed By: #### C MP, GFR, CBC, MG, ADIFF, ANEU #### [place] [address] LABORATORYOrdered By: SYSTEM SYSTEM on 05-22-2023 Prostate specific Ag [Mass/Vol] 4.03 ng/mL High 0.00 - 4.00 ng/mL AO ADM SS PSAon 05-22-2023 Prostate Specific Antigen 4.03 ng/mL High 0.00-4.00 Pending Sale To [facility] ([place]) Comment on above: Performed By: #### C MP, GFR, CBC, MG, ADIFF, ANEU #### [place] [address] .Auto Diffon 05-21-2023 Basophil, Absolute 0.0 10 3/mcL Normal 0.0-0.3 [facility] ([place]) Comment on above: Performed By: #### C MP, GFR, CBC, MG, ADIFF, ANEU #### [place] [address] Basophils/100 WBC (Bld) 0.2 % Normal 0.0-2.5 Pending Sale To [facility] ([place] Comment on above: Performed By: #### C MP, GFR, CBC, MG, ADIFF, ANEU #### [place] [address] Eosinophil, Absolute 0.1 10 3/mcL Normal 0.0-0.7 [facility] ([place]) Comment on above: Performed By: #### C MP, GFR, CBC, MG, ADIFF, ANEU #### [address] [address] Eosinophils/100 WBC (Bld) 3.2 % Normal 0.0-6.0 Pending Sale To [facility] ([place] Comment on above: Performed By: #### C MP, GFR, CBC, MG, ADIFF, ANEU #### [address] [address] Lymphocyte, Absolute 0.9 10 3/mcL Normal 0.9-4.3 [facility] ([place]) Comment on above: Performed By: #### C MP, GFR, CBC, MG, ADIFF, ANEU #### [address] [address] Lymphocytes/100 WBC (Bld) 22.8 % Normal 20.0-40.0 Pending Sale To [facility] ([place] Comment on above: Performed By: #### C MP, GFR, CBC, MG, ADIFF, ANEU #### [address] [address] Monocyte, Absolute 0.4 10 3/mcL Normal 0.1-1.4 [facility] ([place]) Comment on above: Performed By: #### C MP, GFR, CBC, MG, ADIFF, ANEU #### [address] [address] Monocytes/100 WBC (Bld) 9.1 % Normal 2.0-13.0 Pending Sale To [facility] ([place] Comment on above: Performed By: #### C MP, GFR, CBC, MG, ADIFF, ANEU #### [address] [address] Neutrophils/100 WBC (Bld) 64.7 % Normal 50.0-75.0 Pending Sale To [facility] ([place] Comment on above: Performed By: #### C MP, GFR, CBC, MG, ADIFF, ANEU #### [address] [address] .GFRon 05-21-2023 GFR 47 ml/min/1.73sqm Normal Pending Sale To [facility] ([place]) Comment on above: Result Comment: GFR Population mean for , Non- Americans Ages 20-29 = 116 mL/min/1.73 sq.m. Ages 30-39 = 107 mL/min/1.73 sq.m. Ages 40-49 = 99 mL/min/1.73 sq.m. Ages 50-59 = 93 mL/min/1.73 sq.m. Ages 60-69 = 85 mL/min/1.73 sq.m. Ages 70+ = 75 mL/min/1.73 sq.m. Chronic Kidney Disease: Less than 60 mL/min/1.73 square meters End Stage Renal Disease: Less than 15 mL/min/1.73 square meters Performed By: #### C MP, GFR, CBC, MG, ADIFF, ANEU #### [address] [address] GFR Non- 39 ml/min/1.73sqm Normal Pending Sale To [facility] ([place]) Comment on above: Result Comment: GFR Population mean for , Non- Americans Ages 20-29 = 116 mL/min/1.73 sq.m. Ages 30-39 = 107 mL/min/1.73 sq.m. Ages 40-49 = 99 mL/min/1.73 sq.m. Ages 50-59 = 93 mL/min/1.73 sq.m. Ages 60-69 = 85 mL/min/1.73 sq.m. Ages 70+ = 75 mL/min/1.73 sq.m. Chronic Kidney Disease: Less than 60 mL/min/1.73 square meters End Stage Renal Disease: Less than 15 mL/min/1.73 square meters Performed By: #### C MP, GFR, CBC, MG, ADIFF, ANEU #### [address] [address] .NEUABSon 05-21-2023 Neutrophil, Absolute 2.6 10 3/mcL Normal 2.3-8.1 [facility] ([place]) Comment on above: Performed By: #### C MP, GFR, CBC, MG, ADIFF, ANEU #### [address] [address] CBCon 05-21-2023 Erythrocyte distribution width (RBC) [Ratio] 13.6 % Normal 11.5-15.5 Pending Sale To [facility] ([place] Comment on above: Performed By: #### C MP, GFR, CBC, MG, ADIFF, ANEU #### [place] [address] Hematocrit (Bld) [Volume fraction] 36.4 % Low 40.0-52.0 Pending Sale To [facility] ([place] Comment on above: Performed By: #### C MP, GFR, CBC, MG, ADIFF, ANEU #### [place] [address] Hgb 12.6 G/dL Low 13.0-17.5 Pending Sale To [facility] ([place] Comment on above: Performed By: #### C MP, GFR, CBC, MG, ADIFF, ANEU #### [place] [address] MCH (RBC) [Entitic mass] 34.9 pg High 27.0-33.0 Pending Sale To [facility] ([place] Comment on above: Performed By: #### C MP, GFR, CBC, MG, ADIFF, ANEU #### [place] [address] MCHC 34.6 G/dL Normal 32.0-36.0 Pending Sale To [facility] ([place] Comment on above: Performed By: #### C MP, GFR, CBC, MG, ADIFF, ANEU #### [place] [address] MCV (RBC) [Entitic vol] 101.0 fL High 81.0-100.0 Pending Sale To [facility] ([place]) Comment on above: Performed By: #### C MP, GFR, CBC, MG, ADIFF, ANEU #### [place] [id number] Platelet 156 10 3/mcL Normal 150-450 Pending Sale To [facility] ([place]) Comment on above: Performed By: #### C MP, GFR, CBC, MG, ADIFF, ANEU #### [place] [address] Platelet mean volume (Bld) [Entitic vol] 7.3 fL Normal 6.4-10.5 Pending Sale To [facility] ([place] Comment on above: Performed By: #### C MP, GFR, CBC, MG, ADIFF, ANEU #### [address] [address] RBC 3.60 10 6/mcL Low 4.50-6.00 Pending Sale To [facility] ([place] Comment on above: Performed By: #### C MP, GFR, CBC, MG, ADIFF, ANEU #### [place] [id number] WBC 4.0 10 3/mcL Low 4.5-10.8 Pending Sale To [facility] ([place] Comment on above: Performed By: #### C MP, GFR, CBC, MG, ADIFF, ANEU #### [address] [address] CMPon 05-21-2023 Albumin Level 3.6 G/dL Normal 3.2-4.8 Pending Sale To [facility] ([place] Comment on above: Performed By: #### C MP, GFR, CBC, MG, ADIFF, ANEU #### [place] [address] Albumin/Globulin [Mass ratio] 1.5 {ratio} Normal 0.9-1.6 Pending Sale To [facility] ([place] Comment on above: Performed By: #### C MP, GFR, CBC, MG, ADIFF, ANEU #### [address] [address] ALP [Catalytic activity/Vol] 67 U/L Normal 38-126 Pending Sale To [facility] ([place] Comment on above: Performed By: #### C MP, GFR, CBC, MG, ADIFF, ANEU #### [address] [address] ALT [Catalytic activity/Vol] 15 U/L Normal 12-55 Pending Sale To [facility] ([place] Comment on above: Performed By: #### C MP, GFR, CBC, MG, ADIFF, ANEU #### [place] [id number] AST [Catalytic activity/Vol] 16 U/L Normal 8-34 Pending Sale To [facility] ([place] Comment on above: Performed By: #### C MP, GFR, CBC, MG, ADIFF, ANEU #### [address] [address] Bili Total 0.60 mg/dL Normal 0.20-1.20 Pending Sale To [facility] ([place] Comment on above: Result Comment: Use of this assay is not recommended for patients undergoing treatment with eltrombopag due to the potential for falsely elevated results. Performed By: #### C MP, GFR, CBC, MG, ADIFF, ANEU #### [place] [address] BUN/Creatinine Ratio 14.0 ratio Normal 10.0-22.0 [facility] ([place]) Comment on above: Performed By: #### C MP, GFR, CBC, MG, ADIFF, ANEU #### [place] [address] Calcium [Mass/Vol] 8.9 mg/dL Normal 8.7-10.4 [facility] ([place]) Comment on above: Performed By: #### C MP, GFR, CBC, MG, ADIFF, ANEU #### [place] [address] Chloride [Moles/Vol] 109 mmol/L Normal 98-110 [facility] ([place]) Comment on above: Performed By: #### C MP, GFR, CBC, MG, ADIFF, ANEU #### [place] [address] CO2 [Moles/Vol] 26 mmol/L Normal 22-32 Pending Sale To [facility] ([place] Comment on above: Performed By: #### C MP, GFR, CBC, MG, ADIFF, ANEU #### [address] [address] Creatinine [Mass/Vol] 1.71 mg/dL High 0.60-1.40 Pending Sale To [facility] ([place] Comment on above: Performed By: #### C MP, GFR, CBC, MG, ADIFF, ANEU #### [place] [id number] Electrolyte Balance 6.0 mEq/L Normal 4.0-15.0 [facility] ([place]) Comment on above: Performed By: #### C MP, GFR, CBC, MG, ADIFF, ANEU #### [address] [address] Globulin 2.4 G/dL Normal 1.5-3.8 Pending Sale To [facility] ([place] Comment on above: Performed By: #### C MP, GFR, CBC, MG, ADIFF, ANEU #### [address] [address] Glucose [Mass/Vol] 85 mg/dL Normal 82-115 [facility] ([place]) Comment on above: Performed By: #### C MP, GFR, CBC, MG, ADIFF, ANEU #### [address] [address] Potassium [Moles/Vol] 4.2 mmol/L Normal 3.5-5.0 Pending Sale To [facility] ([place] Comment on above: Performed By: #### C MP, GFR, CBC, MG, ADIFF, ANEU #### [place] [id number] Sodium [Moles/Vol] 141 mmol/L Normal 136-145 [facility] ([place]) Comment on above: Performed By: #### C MP, GFR, CBC, MG, ADIFF, ANEU #### [address] [address] Total Protein 6.0 G/dL Normal 5.7-8.2 Pending Sale To [facility] ([place] Comment on above: Result Comment: No te - New Reference Range in effect 20 Performed By: #### C MP, GFR, CBC, MG, ADIFF, ANEU #### [address] [address] Urea nitrogen [Mass/Vol] 24.0 mg/dL High 8.0-22.0 Pending Sale To [facility] ([place] Comment on above: Performed By: #### C MP, GFR, CBC, MG, ADIFF, ANEU #### [address] [address] MGon 05-21-2023 Magnesium [Mass/Vol] 2.2 mg/dL Normal 1.6-2.4 [facility] ([place]) Comment on above: Performed By: #### C MP, GFR, CBC, MG, ADIFF, ANEU #### [address] [address] .Auto Diffon 05-19-2023 Basophil, Absolute 0.0 10 3/mcL Normal 0.0-0.3 [facility] ([place]) Comment on above: Performed By: #### C MP, GFR, CBC, MG, ADIFF, ANEU #### [address] [address] Basophils/100 WBC (Bld) 0.2 % Normal 0.0-2.5 Pending Sale To [facility] ([place] Comment on above: Performed By: #### C MP, GFR, CBC, MG, ADIFF, ANEU #### [address] [address] Eosinophil, Absolute 0.1 10 3/mcL Normal 0.0-0.7 [facility] ([place]) Comment on above: Performed By: #### C MP, GFR, CBC, MG, ADIFF, ANEU #### [address] [address] Eosinophils/100 WBC (Bld) 4.0 % Normal 0.0-6.0 Pending Sale To [facility] ([place] Comment on above: Performed By: #### C MP, GFR, CBC, MG, ADIFF, ANEU #### [address] [address] Lymphocyte, Absolute 0.9 10 3/mcL Normal 0.9-4.3 [facility] ([place]) Comment on above: Performed By: #### C MP, GFR, CBC, MG, ADIFF, ANEU #### [address] [address] Lymphocytes/100 WBC (Bld) 23.1 % Normal 20.0-40.0 Pending Sale To [facility] ([place] Comment on above: Performed By: #### C MP, GFR, CBC, MG, ADIFF, ANEU #### [address] [address] Monocyte, Absolute 0.3 10 3/mcL Normal 0.1-1.4 [facility] ([place]) Comment on above: Performed By: #### C MP, GFR, CBC, MG, ADIFF, ANEU #### [address] [address] Monocytes/100 WBC (Bld) 8.2 % Normal 2.0-13.0 Pending Sale To [facility] ([place]) Comment on above: Performed By: #### C MP, GFR, CBC, MG, ADIFF, ANEU #### [address] [address] Neutrophils/100 WBC (Bld) 64.5 % Normal 50.0-75.0 Pending Sale To [facility] ([place]) Comment on above: Performed By: #### C MP, GFR, CBC, MG, ADIFF, ANEU #### [address] [address] .GFRon 05-19-2023 GFR 51 ml/min/1.73sqm Normal Pending Sale To [facility] ([place]) Comment on above: Result Comment: GFR Population mean for , Non- Americans Ages 20-29 = 116 mL/min/1.73 sq.m. Ages 30-39 = 107 mL/min/1.73 sq.m. Ages 40-49 = 99 mL/min/1.73 sq.m. Ages 50-59 = 93 mL/min/1.73 sq.m. Ages 60-69 = 85 mL/min/1.73 sq.m. Ages 70+ = 75 mL/min/1.73 sq.m. Chronic Kidney Disease: Less than 60 mL/min/1.73 square meters End Stage Renal Disease: Less than 15 mL/min/1.73 square meters Performed By: #### C MP, GFR, CBC, MG, ADIFF, ANEU #### [address] [address] GFR Non- 42 ml/min/1.73sqm Normal Pending Sale To [facility] ([place]) Comment on above: Result Comment: GFR Population mean for , Non- Americans Ages 20-29 = 116 mL/min/1.73 sq.m. Ages 30-39 = 107 mL/min/1.73 sq.m. Ages 40-49 = 99 mL/min/1.73 sq.m. Ages 50-59 = 93 mL/min/1.73 sq.m. Ages 60-69 = 85 mL/min/1.73 sq.m. Ages 70+ = 75 mL/min/1.73 sq.m. Chronic Kidney Disease: Less than 60 mL/min/1.73 square meters End Stage Renal Disease: Less than 15 mL/min/1.73 square meters Performed By: #### C MP, GFR, CBC, MG, ADIFF, ANEU #### [address] [address] .NEUABSon 05-19-2023 Neutrophil, Absolute 2.4 10 3/mcL Normal 2.3-8.1 [facility] ([place]) Comment on above: Performed By: #### C MP, GFR, CBC, MG, ADIFF, ANEU #### [address] [address] BMPon 05-19-2023 BUN/Creatinine Ratio 13.7 ratio Normal 10.0-22.0 [facility] ([place]) Comment on above: Performed By: #### C MP, GFR, CBC, MG, ADIFF, ANEU #### [address] [address] Calcium [Mass/Vol] 9.2 mg/dL Normal 8.7-10.4 [facility] ([place]) Comment on above: Performed By: #### C MP, GFR, CBC, MG, ADIFF, ANEU #### [address] [address] Chloride [Moles/Vol] 110 mmol/L Normal 98-110 [facility] ([place]) Comment on above: Performed By: #### C MP, GFR, CBC, MG, ADIFF, ANEU #### [address] [address] CO2 [Moles/Vol] 22 mmol/L Normal 22-32 Pending Sale To [facility] ([place]) Comment on above: Performed By: #### C MP, GFR, CBC, MG, ADIFF, ANEU #### [address] [address] Creatinine [Mass/Vol] 1.61 mg/dL High 0.60-1.40 Pending Sale To [facility] ([place]) Comment on above: Performed By: #### C MP, GFR, CBC, MG, ADIFF, ANEU #### [place] [address] Electrolyte Balance 4.0 mEq/L Normal 4.0-15.0 [facility] ([place]) Comment on above: Performed By: #### C MP, GFR, CBC, MG, ADIFF, ANEU #### [place] [address] Glucose [Mass/Vol] 129 mg/dL High 82-115 [facility] ([place]) Comment on above: Performed By: #### C MP, GFR, CBC, MG, ADIFF, ANEU #### [place] [address] Potassium [Moles/Vol] 4.4 mmol/L Normal 3.5-5.0 Pending [facility] To [facility] ([place]) Comment on above: Result Comment: Spec imen slightly hemolyzed. Performed By: #### C MP, GFR, CBC, MG, ADIFF, ANEU #### [place] [id number] Sodium [Moles/Vol] 136 mmol/L Normal 136-145 [facility] ([place]) Comment on above: Performed By: #### C MP, GFR, CBC, MG, ADIFF, ANEU #### [place] [address] Urea nitrogen [Mass/Vol] 22.0 mg/dL Normal 8.0-22.0 Pending [facility] To [facility] ([place]) Comment on above: Performed By: #### C MP, GFR, CBC, MG, ADIFF, ANEU #### [place] [id number] CBCon 05-19-2023 Erythrocyte distribution width (RBC) [Ratio] 13.5 % Normal 11.5-15.5 Pending [facility] To [facility] ([place]) Comment on above: Performed By: #### C MP, GFR, CBC, MG, ADIFF, ANEU #### [place] [id number] Hematocrit (Bld) [Volume fraction] 36.2 % Low 40.0-52.0 Pending [facility] To [facility] ([place]) Comment on above: Performed By: #### C MP, GFR, CBC, MG, ADIFF, ANEU #### [place] [address] Hgb 12.6 G/dL Low 13.0-17.5 Pending [facility] To [facility] ([place]) Comment on above: Performed By: #### C MP, GFR, CBC, MG, ADIFF, ANEU #### [place] [address] MCH (RBC) [Entitic mass] 34.9 pg High 27.0-33.0 Pending [facility] To [facility] ([place]) Comment on above: Performed By: #### C MP, GFR, CBC, MG, ADIFF, ANEU #### [place] [address] MCHC 34.7 G/dL Normal 32.0-36.0 Pending [facility] To [facility] ([place]) Comment on above: Performed By: #### C MP, GFR, CBC, MG, ADIFF, ANEU #### [place] [address] MCV (RBC) [Entitic vol] 100.4 fL High 81.0-100.0 Pending [facility] To [facility] ([place]) Comment on above: Performed By: #### C MP, GFR, CBC, MG, ADIFF, ANEU #### [place] [address] Platelet 149 10 3/mcL Low 150-450 Pending Sale To [facility] ([place]) Comment on above: Performed By: #### C MP, GFR, CBC, MG, ADIFF, ANEU #### [place] [address] Platelet mean volume (Bld) [Entitic vol] 7.1 fL Normal 6.4-10.5 Pending [facility] To [facility] ([place]) Comment on above: Performed By: #### C MP, GFR, CBC, MG, ADIFF, ANEU #### [place] [address] RBC 3.60 10 6/mcL Low 4.50-6.00 Pending Sale To [facility] ([place]) Comment on above: Performed By: #### C MP, GFR, CBC, MG, ADIFF, ANEU #### [address] [address] WBC 3.8 10 3/mcL Low 4.5-10.8 [facility]) Comment on above: Performed By: #### C MP, GFR, CBC, MG, ADIFF, ANEU #### [address] [address] NM MYOCARDIAL SPECT STRESS/R ESTon 05-19-2023 NM MYOCARDIAL SPECT STRESS/REST ORIGINAL EXAMINATION: CARDIAC SPECT05/19/2023 10:37 am TECHNIQUE: Exercise stress test Target heart rate achieved 133 BPM 92 % Workload: 4.6 METS Radiopharmaceutical (rest and stress doses): Tc-99m Sestamibi IV 8.1 and 26.2 mCi SPECT acquisition and processing: Images reconstructed into short, vertical long, and horizontal long axis planes. Wall motion evaluation and quantitative LVEF assessment. Low-dose attenuation correction CT. COMPARISON: June 25, 2021 HISTORY: Reason for Exam: Exertional Dyspnea FINDINGS: There is mild stress-induced reversible perfusion abnormality anterior wall, most apparent at mid segment. It has improved compared to the prior study. No fixed perfusion defect is seen to suggest infarction. The left ventricular end-diastolic volume is 101 mL. Gated imaging demonstrates mild hypokinesis in the area of perfusion abnormality. Estimated left ventricular ejection fraction is 52 %. TID ratio is normal at 0.94. Low-dose attenuation correction CT demonstrates post CABG changes. The heart is normal in size. No pericardial or pleural effusion is seen. There is no focal consolidation. IMPRESSION: 1. Mild stress-induced reversible perfusion abnormality involving the anterior wall, with interval improvement, is identified. 2. Cardiac systolic function is borderline with estimated ejection fraction of 52 %. Interpreted by: Sagar Hernandez MD Preliminary Report By: Sagar Hernandez MD Electronically signed By Sagar Hernandez MD Dictated Date: 05/19/2023 10:52:42 AM Prelim Date: 05/19/2023 11:04:17 AM Sign Date: 05/19/2023 11:04:17 AM Ordering Provider: ABISAI Ayon [facility]) LABORATORYOrdered By: MATTHIAS DAVEY CONTRIBUTOR_SYSTEM on 12-29-2022 Bordetella parapertussis by PCR Not detected Invalid Interpretation Code Not Detected AO Sendouts SS Comment on above: Result Comment: Perf ormed By: [facility] [address] [place] [address] Computer Technologist: Marquise Davis III, M.D. CLIA#: [id number] Bordetella pertussis by PCR Not detected Invalid Interpretation Code Not detected AO Sendouts SS Comment on above: Result Comment: Perf ormed By: [facility] [place] [address] Computer Technologist: Marquise Davis III, M.D. CLIA#: [id number] LABORATORYOrdered By: SYSTEM SYSTEM on 11-20-2022 Albumin BCP dye [Mass/Vol] 4.1 G/dL Invalid Interpretation Code 3.4 - 4.8 G/dL AO ADM SS Albumin/Globulin [Mass ratio] 1.6 {ratio} Invalid Interpretation Code 1.1 - 2.5 ratio AO ADM SS ALP [Catalytic activity/Vol] 75 U/L Invalid Interpretation Code 40 - 135 U/L AO ADM SS ALT With P-5'-P [Catalytic activity/Vol] 27 U/L Invalid Interpretation Code 16 - 63 U/L AO ADM SS AST With P-5'-P [Catalytic activity/Vol] 16 U/L Invalid Interpretation Code 10 - 40 U/L AO ADM SS Bilirubin [Mass/Vol] 0.8 mg/dL Invalid Interpretation Code 0.2 - 1.0 mg/dL AO ADM SS Calcium [Mass/Vol] 9.1 mg/dL Invalid Interpretation Code 8.4 - 10.2 mg/dL AO ADM SS Chloride [Moles/Vol] 107 mmol/L Invalid Interpretation Code 98 - 107 mmol/L AO ADM SS CO2 [Moles/Vol] 28 mmol/L Invalid Interpretation Code 23 - 31 mmol/L AO ADM SS Creatinine [Mass/Vol] 1.64 mg/dL Invalid Interpretation Code 0.70 - 1.30 mg/dL AO ADM SS Electrolyte Balance 6.0 mEq/L Invalid Interpretation Code 4.0 - 15.0 mEq/L AO ADM SS GFR/1.73 sq M.predicted among blacks MDRD (S/P/Bld) [Vol rate/Area] 50 ml/min/1.73sqm Invalid Interpretation Code AO Chemistry S GFR/1.73 sq M.predicted among non-blacks MDRD (S/P/Bld) [Vol rate/Area] 41 ml/min/1.73sqm Invalid Interpretation Code AO Chemistry S Globulin 2.5 G/dL Invalid Interpretation Code AO ADM SS Glucose [Mass/Vol] 97 mg/dL Invalid Interpretation Code 83 - 110 mg/dL AO ADM SS Potassium [Moles/Vol] 4.5 mmol/L Invalid Interpretation Code 3.5 - 5.1 mmol/L AO ADM SS Prostate specific Ag [Mass/Vol] 3.10 ng/mL Invalid Interpretation Code 0.00 - 4.00 ng/mL AO ADM SS Protein [Mass/Vol] 6.6 G/dL Invalid Interpretation Code 6.4 - 8.2 G/dL AO ADM SS Sodium [Moles/Vol] 141 mmol/L Invalid Interpretation Code 136 - 145 mmol/L AO ADM SS Urea nitrogen [Mass/Vol] 26 mg/dL Invalid Interpretation Code 7 - 18 mg/dL AO ADM SS Urea nitrogen/Creatinine [Mass ratio] 16 ratio Invalid Interpretation Code 7 - 27 ratio AO ADM SS LABORATORYOrdered By: Ibis Fernando on 11-20-2022 Basophil, Absolute 0.0 103/mcL Invalid Interpretation Code 0.0 - 0.2 10^3/mcL AO Workflow SS Basophils/100 WBC (Bld) 0.2 % Invalid Interpretation Code 0.0 - 2.5 % AO Workflow SS Eosinophil, Absolute 0.2 103/mcL Invalid Interpretation Code 0.0 - 0.4 10^3/mcL AO Workflow SS Eosinophils/100 WBC (Bld) 4.0 % Invalid Interpretation Code 0.0 - 7.0 % AO Workflow SS Erythrocyte distribution width (RBC) [Ratio] 13.9 % Invalid Interpretation Code 11.5 - 14.5 % AO Workflow SS Hematocrit (Bld) [Volume fraction] 38.7 % Invalid Interpretation Code 42.0 - 52.0 % AO Workflow SS Hemoglobin (Bld) [Mass/Vol] 13.4 G/dL Invalid Interpretation Code 14.0 - 18.0 G/dL AO Workflow SS Lymphocyte, Absolute 0.9 103/mcL Invalid Interpretation Code 0.8 - 3.9 10^3/mcL AO Workflow SS Lymphocytes/100 WBC (Bld) 23.5 % Invalid Interpretation Code 10.0 - 50.0 % AO Workflow SS MCH (RBC) [Entitic mass] 33.9 pg Invalid Interpretation Code 27.0 - 31.2 pg AO Workflow SS MCHC 34.7 G/dL Invalid Interpretation Code 31.8 - 35.4 G/dL AO Workflow SS MCV (RBC) [Entitic vol] 97.7 fL Invalid Interpretation Code 80.0 - 94.0 fL AO Workflow SS Monocyte, Absolute 0.4 103/mcL Invalid Interpretation Code 0.2 - 1.0 10^3/mcL AO Workflow SS Monocytes/100 WBC (Bld) 9.5 % Invalid Interpretation Code 1.7 - 13.0 % AO Workflow SS Neutrophil, Absolute 2.4 103/mcL Invalid Interpretation Code 2.9 - 6.2 10^3/mcL AO Workflow SS Neutrophils/100 WBC (Bld) 62.8 % Invalid Interpretation Code 37.0 - 80.0 % AO Workflow SS Platelet mean volume (Bld) [Entitic vol] 7.4 fL Invalid Interpretation Code 7.4 - 10.4 fL AO Workflow SS Platelets (Bld) [#/Vol] 157 103/mcL Invalid Interpretation Code 130 - 400 10^3/mcL AO Workflow SS RBC (Bld) [#/Vol] 3.96 106/mcL Invalid Interpretation Code 4.04 - 6.13 10^6/mcL AO Workflow SS WBC (Bld) [#/Vol] 3.8 103/mcL Invalid Interpretation Code 4.6 - 10.8 10^3/mcL AO Workflow SS LABORATORYOrdered By: Marry Martínez on 11-20-2022 Cholesterol [Mass/Vol] 149 mg/dL Invalid Interpretation Code 0 - 200 mg/dL AO ADM SS Cholesterol in HDL [Mass/Vol] 54 mg/dL Invalid Interpretation Code 40 - 60 mg/dL AO ADM SS Cholesterol in LDL [Mass/Vol] 77 mg/dL Invalid Interpretation Code 0 - 130 mg/dL AO ADM SS Triglyceride [Mass/Vol] 91 mg/dL Invalid Interpretation Code 0 - 150 mg/dL AO ADM SS 34BE12 (initial)on 3 34BE12 (initial) ---- Patient Age/Sex Location Account Attending Physician IVAN SALAS 76/M LABSPEC [id number] Dr. Gregorio Neal MD Specimen: [id number] Received: 08/07/22 Status: JOYCELYN Angela Num: [id number] Spec Type: IMMUNO Subm Dr: Dr. Gregorio Neal MD PHYSICIAN INSTITUTION [place] [address] SPECIMEN INFORMATION: Tissue Source: B - Right mid, C - Right base, D - Left apex, E - Left mid Clinical Info: Elevated PSA Specimen Number: [id number] B-E CPT code: 42670, 46681 x7 METHODOLOGY: Deparaffinized sections of prefer/formalin-fixed tissue or PAP/DQ stained slides are incubated with monoclonal/polyclonal antibodies/oligonucleoti de probes. Localization is made via biotin free immunoperoxidase method. Appropriate controls are performed and reacted as expected. Results on target cell population are indicated in the following table: RESULTS: ANTIBODY / CLONE RESULT Block B P40 (BC28) negative * 34BE12 (34BE12) negative * Block C P40 (BC28) negative * 34BE12 (34BE12) negative * Block D P40 (BC28) negative * 34BE12 (34BE12) negative * Block E P40 (BC28) negative * 34BE12 (34BE12) negative * *???Positive in the area of HGPIN. These tests were developed and their performance characteristics determined by [facility]. They may not have been cleared or approved by the U.S. Food and Drug Administration. The FDA has determined that such clearance or approval is not necessary. The above immunohistochemical/dual MONAE markers are ordered and reviewed by the Pathologist. Patient Age/Sex Location Account Attending Physician IVAN SALAS/M LABSPEC [id number] Dr. Gregorio Neal MD INTERPRETATION: B. Right prostate, mid, core biopsy: Adenocarcinoma. High-grade prostatic intraepithelial neoplasia (HGPIN). C. Right prostate, base, core biopsy: Adenocarcinoma. High-grade prostatic intraepithelial neoplasia (HGPIN). D. Left prostate, apex, core biopsy: Adenocarcinoma. High-grade prostatic intraepithelial neoplasia (HGPIN). E. 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 SJ:raquel 08/08/2022 Signed (signature on file) Dr. Yariel Palomo MD 08/08/22 1307 Normal [facility] Comment on above: Performed By: #### P [id number] #### [facility] [address] [place], [place], [id number] PROSTATE BXon 08-05-2022 PROSTATE BX ---- Patient Age/Sex Location Account Attending Physician IVAN SALAS/M LABSPEC [id number] Dr. Gregorio Neal MD Specimen: [id number] Received: 08/06/22 Status: JOYCELYN Angela Num: [id number] Spec Type: PROST BX Subm Dr: Dr. Gregorio Neal MD HEADER OPERATION: Prostate biopsy PRE-OP DIAGNOSIS: Elevated PSA TISSUE SUBMITTED: A - Right apex, B - Right mid, C - Right base, D - Left apex, E - Left mid, F - Left base MICROSCOPIC DIAGNOSIS A. Right prostate, apex, core biopsy: Prostatic adenocarcinoma. [place] grade: 3+3=6 Number of cores involved: 1/2 Proportion of tissue involved: 20% Perineural invasion: Not identified. Greatest tumor length: 0.4 cm Focal high-grade prostatic intraepithelial neoplasia (HGPIN). B. Right prostate, mid, core biopsy: Prostatic adenocarcinoma. [place] grade: 3+3=6 Number of cores involved: 1/2 Proportion of tissue involved: <5% Perineural invasion: Not identified. Greatest tumor length: 0.1 cm Focal high-grade prostatic intraepithelial neoplasia (HGPIN). See comment. C. Right prostate, base, core biopsy: Prostatic adenocarcinoma. [place] grade: 3+3=6 Number of cores involved: 1/2 Proportion of tissue involved: <5% Perineural invasion: Not identified. Greatest tumor length: 0.1 cm Focal high-grade prostatic intraepithelial neoplasia (HGPIN). See comment. D. Left prostate, apex, core biopsy: Prostatic adenocarcinoma. [place] grade: 3+3=6 Number of cores involved: 1/2 Proportion of tissue involved: 20% Perineural invasion: Not identified. Greatest tumor length: 0.4 cm Focal high-grade prostatic intraepithelial neoplasia (HGPIN). See comment. E. 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 See comment. Patient Age/Sex Location Account Attending Physician IVAN SALAS 76/M LABSPEC [id number] Dr. Gregorio Neal MD F. Left prostate, base, core biopsy: Focal high-grade prostatic intraepithelial neoplasia (HGPIN). SJ:raquel 08/07/2022 COMMENT B-E. Immunohistochemistry ([id number]) supports the above diagnosis. MICROSCOPIC DESCRIPTION Slides are reviewed. GROSS DESCRIPTION A - Received is one container designated prostate, right apex. The specimen consists of two elongated fragments of light varner-white soft tissue each measuring 1.0 cm in length and 0.1 cm in diameter. The specimen is totally submitted in one cassette. B - Received is one container designated prostate, right mid. The specimen consists of two elongated fragments of light varner-white soft tissue measuring 1.2 and 1.5 cm in length and 0.1 cm in diameter. The specimen is totally submitted in one cassette. C - Received is one container designated prostate, right base. The specimen consists of two elongated fragments of light varner-white soft tissue each measuring 1.2 cm in length and 0.1 cm in diameter. The specimen is totally submitted in one cassette. D - Received is one container designated prostate, left apex. The specimen consists of two elongated fragments of light varner-white soft tissue each measuring 0.9 cm in length and 0.1 cm in diameter. The specimen is totally submitted in one cassette. E - Received is one container designated prostate, left mid. The specimen consists of two elongated fragments of light varner-white soft tissue each measuring 1.0 cm in length and 0.1 cm in diameter. The specimen is totally submitted in one cassette. F - Received is one container designated prostate, left base. The specimen consists of two elongated fragments of light varner-white soft tissue each measuring 1.1 cm in length and 0.1 cm in diameter. The specimen is totally submitted in one cassette. / SJ:rg 08/06/2022 TC:0 CPT: G0146 Patient Age/Sex Location Account Attending Physician IAVN SALAS/[place] LABSPEC [id number] Dr. Gregorio Neal MD Signed (signature on file) Dr. Saldivar (more content not included)... Normal [facility] Comment on above: Performed By: #### P PROSB #### [facility] [address] [place], [address] LABORATORYOrdered By: Christen Odonnell on 05-23-2022 Albumin BCP dye [Mass/Vol] 4.3 G/dL Invalid Interpretation Code 3.4 - 4.8 G/dL AO ADM SS Albumin/Globulin [Mass ratio] 1.5 {ratio} Invalid Interpretation Code 1.1 - 2.5 ratio AO ADM SS ALP [Catalytic activity/Vol] 78 U/L Invalid Interpretation Code 40 - 135 U/L AO ADM SS ALT With P-5'-P [Catalytic activity/Vol] 24 U/L Invalid Interpretation Code 16 - 63 U/L AO ADM SS AST With P-5'-P [Catalytic activity/Vol] 17 U/L Invalid Interpretation Code 10 - 40 U/L AO ADM SS Bilirubin [Mass/Vol] 1.0 mg/dL Invalid Interpretation Code 0.2 - 1.0 mg/dL AO ADM SS Calcium [Mass/Vol] 9.9 mg/dL Invalid Interpretation Code 8.4 - 10.2 mg/dL AO ADM SS Chloride [Moles/Vol] 106 mmol/L Invalid Interpretation Code 98 - 107 mmol/L AO ADM SS Cholesterol [Mass/Vol] 160 mg/dL Invalid Interpretation Code 0 - 200 mg/dL AO ADM SS Cholesterol in HDL [Mass/Vol] 49 mg/dL Invalid Interpretation Code 40 - 60 mg/dL AO ADM SS Cholesterol in LDL [Mass/Vol] 86 mg/dL Invalid Interpretation Code 0 - 130 mg/dL AO ADM SS CO2 [Moles/Vol] 30 mmol/L Invalid Interpretation Code 23 - 31 mmol/L AO ADM SS Creatinine [Mass/Vol] 1.31 mg/dL Invalid Interpretation Code 0.70 - 1.30 mg/dL AO ADM SS Electrolyte Balance 6.0 mEq/L Invalid Interpretation Code 4.0 - 15.0 mEq/L AO ADM SS Globulin 2.8 G/dL Invalid Interpretation Code AO ADM SS Glucose [Mass/Vol] 93 mg/dL Invalid Interpretation Code 83 - 110 mg/dL AO ADM SS Potassium [Moles/Vol] 4.6 mmol/L Invalid Interpretation Code 3.5 - 5.1 mmol/L AO ADM SS Prostate specific Ag [Mass/Vol] 8.25 ng/mL Invalid Interpretation Code 0.00 - 4.00 ng/mL AO ADM SS Protein [Mass/Vol] 7.1 G/dL Invalid Interpretation Code 6.4 - 8.2 G/dL AO ADM SS Sodium [Moles/Vol] 142 mmol/L Invalid Interpretation Code 136 - 145 mmol/L AO ADM SS Triglyceride [Mass/Vol] 126 mg/dL Invalid Interpretation Code 0 - 150 mg/dL AO ADM SS Urea nitrogen [Mass/Vol] 22 mg/dL Invalid Interpretation Code 7 - 18 mg/dL AO ADM SS Urea nitrogen/Creatinine [Mass ratio] 17 ratio Invalid Interpretation Code 7 - 27 ratio AO ADM SS LABORATORYOrdered By: Chiquis Villatoro on 05-23-2022 Basophil, Absolute 0.0 103/mcL Invalid Interpretation Code 0.0 - 0.2 10^3/mcL AO Workflow SS Basophils/100 WBC (Bld) 0.2 % Invalid Interpretation Code 0.0 - 2.5 % AO Workflow SS Eosinophil, Absolute 0.1 103/mcL Invalid Interpretation Code 0.0 - 0.4 10^3/mcL AO Workflow SS Eosinophils/100 WBC (Bld) 2.5 % Invalid Interpretation Code 0.0 - 7.0 % AO Workflow SS Erythrocyte distribution width (RBC) [Ratio] 13.3 % Invalid Interpretation Code 11.5 - 14.5 % AO Workflow SS Hematocrit (Bld) [Volume fraction] 39.7 % Invalid Interpretation Code 42.0 - 52.0 % AO Workflow SS Hemoglobin (Bld) [Mass/Vol] 14.1 G/dL Invalid Interpretation Code 14.0 - 18.0 G/dL AO Workflow SS Lymphocyte, Absolute 0.8 103/mcL Invalid Interpretation Code 0.8 - 3.9 10^3/mcL AO Workflow SS Lymphocytes/100 WBC (Bld) 16.6 % Invalid Interpretation Code 10.0 - 50.0 % AO Workflow SS MCH (RBC) [Entitic mass] 34.5 pg Invalid Interpretation Code 27.0 - 31.2 pg AO Workflow SS MCHC 35.4 G/dL Invalid Interpretation Code 31.8 - 35.4 G/dL AO Workflow SS MCV (RBC) [Entitic vol] 97.5 fL Invalid Interpretation Code 80.0 - 94.0 fL AO Workflow SS Monocyte, Absolute 0.4 103/mcL Invalid Interpretation Code 0.2 - 1.0 10^3/mcL AO Workflow SS Monocytes/100 WBC (Bld) 7.7 % Invalid Interpretation Code 1.7 - 13.0 % AO Workflow SS Neutrophil, Absolute 3.7 103/mcL Invalid Interpretation Code 2.9 - 6.2 10^3/mcL AO Workflow SS Neutrophils/100 WBC (Bld) 73.0 % Invalid Interpretation Code 37.0 - 80.0 % AO Workflow SS Platelet mean volume (Bld) [Entitic vol] 6.8 fL Invalid Interpretation Code 7.4 - 10.4 fL AO Workflow SS Platelets (Bld) [#/Vol] 170 103/mcL Invalid Interpretation Code 130 - 400 10^3/mcL AO Workflow SS RBC (Bld) [#/Vol] 4.07 106/mcL Invalid Interpretation Code 4.04 - 6.13 10^6/mcL AO Workflow SS WBC (Bld) [#/Vol] 5.0 103/mcL Invalid Interpretation Code 4.6 - 10.8 10^3/mcL AO Workflow SS LABORATORYOrdered By: SYSTEM SYSTEM on 05-23-2022 GFR 65 ml/min/1.73sqm Invalid Interpretation Code AO Chemistry S GFR Non- 53 ml/min/1.73sqm Invalid Interpretation Code AO Chemistry S LABORATORYOrdered By: Jimbo Cruz on 05-23-2022 HbA1c (Bld) [Mass fraction] 4.8 % Invalid Interpretation Code 4.3 - 6.4 % AO ADM SS LABORATORYOrdered By: Jimbo Mckeon on 09-02-2021 Albumin BCP dye [Mass/Vol] 3.9 G/dL Invalid Interpretation Code 3.4 - 4.8 G/dL AO ADM SS Albumin/Globulin [Mass ratio] 1.2 {ratio} Invalid Interpretation Code 1.1 - 2.5 ratio AO ADM SS ALP [Catalytic activity/Vol] 119 U/L Invalid Interpretation Code 40 - 135 U/L AO ADM SS ALT With P-5'-P [Catalytic activity/Vol] 30 U/L Invalid Interpretation Code 16 - 63 U/L AO ADM SS AST With P-5'-P [Catalytic activity/Vol] 16 U/L Invalid Interpretation Code 10 - 40 U/L AO ADM SS Bilirubin [Mass/Vol] 0.9 mg/dL Invalid Interpretation Code 0.2 - 1.0 mg/dL AO ADM SS Calcium [Mass/Vol] 9.8 mg/dL Invalid Interpretation Code 8.4 - 10.2 mg/dL AO ADM SS Chloride [Moles/Vol] 101 mmol/L Invalid Interpretation Code 98 - 107 mmol/L AO ADM SS CO2 [Moles/Vol] 27 mmol/L Invalid Interpretation Code 23 - 31 mmol/L AO ADM SS Creatinine [Mass/Vol] 1.17 mg/dL Invalid Interpretation Code 0.70 - 1.30 mg/dL AO ADM SS Electrolyte Balance 11.0 mEq/L Invalid Interpretation Code 4.0 - 15.0 mEq/L AO ADM SS Fibrin D-dimer DDU (PPP) [Mass/Vol] 818 ng/mL D-DU Invalid Interpretation Code 0 - 230 ng/mL D-DU AO Coag SS Globulin 3.3 G/dL Invalid Interpretation Code AO ADM SS Glucose [Mass/Vol] 90 mg/dL Invalid Interpretation Code 83 - 110 mg/dL AO ADM SS Potassium [Moles/Vol] 4.6 mmol/L Invalid Interpretation Code 3.5 - 5.1 mmol/L AO ADM SS Protein [Mass/Vol] 7.2 G/dL Invalid Interpretation Code 6.4 - 8.2 G/dL AO ADM SS Sodium [Moles/Vol] 139 mmol/L Invalid Interpretation Code 136 - 145 mmol/L AO ADM SS Urea nitrogen [Mass/Vol] 25 mg/dL Invalid Interpretation Code 7 - 18 mg/dL AO ADM SS Urea nitrogen/Creatinine [Mass ratio] 21 ratio Invalid Interpretation Code 7 - 27 ratio AO ADM SS LABORATORYOrdered By: Danelle Jorge on 09-02-2021 Basophil, Absolute 0.00 103/mcL Invalid Interpretation Code 0.00 - 0.19 10^3/mcL AO Auto Heme SS Basophils/100 WBC (Bld) 0.2 % Invalid Interpretation Code 0.0 - 2.5 % AO Auto Heme SS Eosinophil, Absolute 0.10 103/mcL Invalid Interpretation Code 0.00 - 0.40 10^3/mcL AO Auto Heme SS Eosinophils/100 WBC (Bld) 2.0 % Invalid Interpretation Code 0.0 - 7.0 % AO Auto Heme SS Erythrocyte distribution width (RBC) [Ratio] 14.6 % Invalid Interpretation Code 11.5 - 14.5 % AO Auto Heme SS Hematocrit (Bld) [Volume fraction] 31.3 % Invalid Interpretation Code 42.0 - 52.0 % AO Auto Heme SS Hemoglobin (Bld) [Mass/Vol] 10.8 G/dL Invalid Interpretation Code 14.0 - 18.0 G/dL AO Auto Heme SS Lymphocyte, Absolute 0.70 103/mcL Invalid Interpretation Code 0.77 - 3.85 10^3/mcL AO Auto Heme SS Lymphocytes/100 WBC (Bld) 9.8 % Invalid Interpretation Code 10.0 - 50.0 % AO Auto Heme SS MCH (RBC) [Entitic mass] 33.7 pg Invalid Interpretation Code 27.0 - 31.2 pg AO Auto Heme SS MCHC (RBC) [Mass/Vol] 34.4 G/dL Invalid Interpretation Code 31.8 - 35.4 G/dL AO Auto Heme SS MCV (RBC) [Entitic vol] 97.8 fL Invalid Interpretation Code 80.0 - 94.0 fL AO Auto Heme SS Monocyte, Absolute 0.40 103/mcL Invalid Interpretation Code 0.15 - 1.00 10^3/mcL AO Auto Heme SS Monocytes/100 WBC (Bld) 5.3 % Invalid Interpretation Code 1.7 - 13.0 % AO Auto Heme SS Neutrophil, Absolute 6.00 103/mcL Invalid Interpretation Code 2.85 - 6.16 10^3/mcL AO Auto Heme SS Neutrophils/100 WBC (Bld) 82.7 % Invalid Interpretation Code 37.0 - 80.0 % AO Auto Heme SS Platelet mean volume (Bld) [Entitic vol] 6.7 fL Invalid Interpretation Code 7.4 - 10.4 fL AO Auto Heme SS Platelets (Bld) [#/Vol] 331 103/mcL Invalid Interpretation Code 130 - 400 10^3/mcL AO Auto Heme SS RBC (Bld) [#/Vol] 3.20 106/mcL Invalid Interpretation Code 4.04 - 6.13 10^6/mcL AO Auto Heme SS WBC (Bld) [#/Vol] 7.20 103/mcL Invalid Interpretation Code 4.60 - 10.80 10^3/mcL AO Auto Heme SS LABORATORYOrdered By: SYSTEM SYSTEM on 09-02-2021 GFR 74 ml/min/1.73sqm Invalid Interpretation Code AO Chemistry S GFR Non- 61 ml/min/1.73sqm Invalid Interpretation Code AO Chemistry S LABORATORYOrdered By: Bam Hernandez on 08-26-2021 Basophil, Absolute 0.00 103/mcL Invalid Interpretation Code 0.00 - 0.19 10^3/mcL AO Auto Heme SS Basophils/100 WBC (Bld) 0.2 % Invalid Interpretation Code 0.0 - 2.5 % AO Auto Heme SS Eosinophil, Absolute 0.20 103/mcL Invalid Interpretation Code 0.00 - 0.40 10^3/mcL AO Auto Heme SS Eosinophils/100 WBC (Bld) 2.8 % Invalid Interpretation Code 0.0 - 7.0 % AO Auto Heme SS Erythrocyte distribution width (RBC) [Ratio] 14.1 % Invalid Interpretation Code 11.5 - 14.5 % AO Auto Heme SS Hematocrit (Bld) [Volume fraction] 29.3 % Invalid Interpretation Code 42.0 - 52.0 % AO Auto Heme SS Hemoglobin (Bld) [Mass/Vol] 10.3 G/dL Invalid Interpretation Code 14.0 - 18.0 G/dL AO Auto Heme SS Lymphocyte, Absolute 0.80 103/mcL Invalid Interpretation Code 0.77 - 3.85 10^3/mcL AO Auto Heme SS Lymphocytes/100 WBC (Bld) 14.6 % Invalid Interpretation Code 10.0 - 50.0 % AO Auto Heme SS MCH (RBC) [Entitic mass] 34.5 pg Invalid Interpretation Code 27.0 - 31.2 pg AO Auto Heme SS MCHC (RBC) [Mass/Vol] 35.3 G/dL Invalid Interpretation Code 31.8 - 35.4 G/dL AO Auto Heme SS MCV (RBC) [Entitic vol] 97.6 fL Invalid Interpretation Code 80.0 - 94.0 fL AO Auto Heme SS Monocyte, Absolute 0.80 103/mcL Invalid Interpretation Code 0.15 - 1.00 10^3/mcL AO Auto Heme SS Monocytes/100 WBC (Bld) 13.8 % Invalid Interpretation Code 1.7 - 13.0 % AO Auto Heme SS Neutrophil, Absolute 3.80 103/mcL Invalid Interpretation Code 2.85 - 6.16 10^3/mcL AO Auto Heme SS Neutrophils/100 WBC (Bld) 68.6 % Invalid Interpretation Code 37.0 - 80.0 % AO Auto Heme SS Platelet mean volume (Bld) [Entitic vol] 7.0 fL Invalid Interpretation Code 7.4 - 10.4 fL AO Auto Heme SS Platelets (Bld) [#/Vol] 223 103/mcL Invalid Interpretation Code 130 - 400 10^3/mcL AO Auto Heme SS RBC (Bld) [#/Vol] 3.00 106/mcL Invalid Interpretation Code 4.04 - 6.13 10^6/mcL AO Auto Heme SS WBC (Bld) [#/Vol] 5.50 103/mcL Invalid Interpretation Code 4.60 - 10.80 10^3/mcL AO Auto Heme SS LABORATORYOrdered By: Christen Odonnell on 08-26-2021 Calcium [Mass/Vol] 9.1 mg/dL Invalid Interpretation Code 8.4 - 10.2 mg/dL AO ADM SS Chloride [Moles/Vol] 102 mmol/L Invalid Interpretation Code 98 - 107 mmol/L AO ADM SS CO2 [Moles/Vol] 29 mmol/L Invalid Interpretation Code 23 - 31 mmol/L AO ADM SS Creatinine [Mass/Vol] 1.30 mg/dL Invalid Interpretation Code 0.70 - 1.30 mg/dL AO ADM SS Electrolyte Balance 9.0 mEq/L Invalid Interpretation Code 4.0 - 15.0 mEq/L AO ADM SS Glucose [Mass/Vol] 71 mg/dL Invalid Interpretation Code 83 - 110 mg/dL AO ADM SS Potassium [Moles/Vol] 4.3 mmol/L Invalid Interpretation Code 3.5 - 5.1 mmol/L AO ADM SS Sodium [Moles/Vol] 140 mmol/L Invalid Interpretation Code 136 - 145 mmol/L AO ADM SS Urea nitrogen [Mass/Vol] 33 mg/dL Invalid Interpretation Code 7 - 18 mg/dL AO ADM SS Urea nitrogen/Creatinine [Mass ratio] 25 ratio Invalid Interpretation Code 7 - 27 ratio AO ADM SS LABORATORYOrdered By: SYSTEM SYSTEM on 08-26-2021 GFR 65 ml/min/1.73sqm Invalid Interpretation Code AO Chemistry S GFR Non- 54 ml/min/1.73sqm Invalid Interpretation Code AO Chemistry S LABORATORYOrdered By: Danelle Jorge on 08-22-2021 Basophil, Absolute 0.00 103/mcL Invalid Interpretation Code 0.00 - 0.19 10^3/mcL AO Auto Heme SS Basophils/100 WBC (Bld) 0.2 % Invalid Interpretation Code 0.0 - 2.5 % AO Auto Heme SS Eosinophil, Absolute 0.10 103/mcL Invalid Interpretation Code 0.00 - 0.40 10^3/mcL AO Auto Heme SS Eosinophils/100 WBC (Bld) 2.9 % Invalid Interpretation Code 0.0 - 7.0 % AO Auto Heme SS Erythrocyte distribution width (RBC) [Ratio] 14.1 % Invalid Interpretation Code 11.5 - 14.5 % AO Auto Heme SS Hematocrit (Bld) [Volume fraction] 28.3 % Invalid Interpretation Code 42.0 - 52.0 % AO Auto Heme SS Hemoglobin (Bld) [Mass/Vol] 9.9 G/dL Invalid Interpretation Code 14.0 - 18.0 G/dL AO Auto Heme SS Lymphocyte, Absolute 1.00 103/mcL Invalid Interpretation Code 0.77 - 3.85 10^3/mcL AO Auto Heme SS Lymphocytes/100 WBC (Bld) 20.2 % Invalid Interpretation Code 10.0 - 50.0 % AO Auto Heme SS MCH (RBC) [Entitic mass] 34.2 pg Invalid Interpretation Code 27.0 - 31.2 pg AO Auto Heme SS MCHC (RBC) [Mass/Vol] 34.8 G/dL Invalid Interpretation Code 31.8 - 35.4 G/dL AO Auto Heme SS MCV (RBC) [Entitic vol] 98.3 fL Invalid Interpretation Code 80.0 - 94.0 fL AO Auto Heme SS Monocyte, Absolute 0.60 103/mcL Invalid Interpretation Code 0.15 - 1.00 10^3/mcL AO Auto Heme SS Monocytes/100 WBC (Bld) 11.6 % Invalid Interpretation Code 1.7 - 13.0 % AO Auto Heme SS Neutrophil, Absolute 3.30 103/mcL Invalid Interpretation Code 2.85 - 6.16 10^3/mcL AO Auto Heme SS Neutrophils/100 WBC (Bld) 65.1 % Invalid Interpretation Code 37.0 - 80.0 % AO Auto Heme SS Platelet mean volume (Bld) [Entitic vol] 6.9 fL Invalid Interpretation Code 7.4 - 10.4 fL AO Auto Heme SS Platelets (Bld) [#/Vol] 131 103/mcL Invalid Interpretation Code 130 - 400 10^3/mcL AO Auto Heme SS RBC (Bld) [#/Vol] 2.88 106/mcL Invalid Interpretation Code 4.04 - 6.13 10^6/mcL AO Auto Heme SS WBC (Bld) [#/Vol] 5.00 103/mcL Invalid Interpretation Code 4.60 - 10.80 10^3/mcL AO Auto Heme SS LABORATORYOrdered By: Shelia Garcia on 08-22-2021 Calcium [Mass/Vol] 8.0 mg/dL Invalid Interpretation Code 8.4 - 10.2 mg/dL AO ADM SS Chloride [Moles/Vol] 106 mmol/L Invalid Interpretation Code 98 - 107 mmol/L AO ADM SS CO2 [Moles/Vol] 28 mmol/L Invalid Interpretation Code 23 - 31 mmol/L AO ADM SS Creatinine [Mass/Vol] 1.82 mg/dL Invalid Interpretation Code 0.70 - 1.30 mg/dL AO ADM SS Electrolyte Balance 7.0 mEq/L Invalid Interpretation Code 4.0 - 15.0 mEq/L AO ADM SS Glucose [Mass/Vol] 112 mg/dL Invalid Interpretation Code 83 - 110 mg/dL AO ADM SS Potassium [Moles/Vol] 4.5 mmol/L Invalid Interpretation Code 3.5 - 5.1 mmol/L AO ADM SS Sodium [Moles/Vol] 141 mmol/L Invalid Interpretation Code 136 - 145 mmol/L AO ADM SS Urea nitrogen [Mass/Vol] 48 mg/dL Invalid Interpretation Code 7 - 18 mg/dL AO ADM SS Urea nitrogen/Creatinine [Mass ratio] 26 ratio Invalid Interpretation Code 7 - 27 ratio AO ADM SS LABORATORYOrdered By: SYSTEM SYSTEM on 08-22-2021 GFR 44 ml/min/1.73sqm Invalid Interpretation Code AO Chemistry S GFR Non- 37 ml/min/1.73sqm Invalid Interpretation Code AO Chemistry S LABORATORYOrdered By: Shelia Garcia on 08-21-2021 Basophil, Absolute 0.00 103/mcL Invalid Interpretation Code 0.00 - 0.19 10^3/mcL AO Auto Heme SS Basophils/100 WBC (Bld) 0.1 % Invalid Interpretation Code 0.0 - 2.5 % AO Auto Heme SS Calcium [Mass/Vol] 8.6 mg/dL Invalid Interpretation Code 8.4 - 10.2 mg/dL AO ADM SS Chloride [Moles/Vol] 104 mmol/L Invalid Interpretation Code 98 - 107 mmol/L AO ADM SS CO2 [Moles/Vol] 24 mmol/L Invalid Interpretation Code 23 - 31 mmol/L AO ADM SS Creatinine [Mass/Vol] 1.50 mg/dL Invalid Interpretation Code 0.70 - 1.30 mg/dL AO ADM SS Electrolyte Balance 11.0 mEq/L Invalid Interpretation Code 4.0 - 15.0 mEq/L AO ADM SS Eosinophil, Absolute 0.00 103/mcL Invalid Interpretation Code 0.00 - 0.40 10^3/mcL AO Auto Heme SS Eosinophils/100 WBC (Bld) 0.0 % Invalid Interpretation Code 0.0 - 7.0 % AO Auto Heme SS Erythrocyte distribution width (RBC) [Ratio] 13.7 % Invalid Interpretation Code 11.5 - 14.5 % AO Auto Heme SS Glucose [Mass/Vol] 127 mg/dL Invalid Interpretation Code 83 - 110 mg/dL AO ADM SS Hematocrit (Bld) [Volume fraction] 33.1 % Invalid Interpretation Code 42.0 - 52.0 % AO Auto Heme SS Hemoglobin (Bld) [Mass/Vol] 11.6 G/dL Invalid Interpretation Code 14.0 - 18.0 G/dL AO Auto Heme SS Lymphocyte, Absolute 0.60 103/mcL Invalid Interpretation Code 0.77 - 3.85 10^3/mcL AO Auto Heme SS Lymphocytes/100 WBC (Bld) 6.7 % Invalid Interpretation Code 10.0 - 50.0 % AO Auto Heme SS MCH (RBC) [Entitic mass] 34.2 pg Invalid Interpretation Code 27.0 - 31.2 pg AO Auto Heme SS MCHC (RBC) [Mass/Vol] 35.1 G/dL Invalid Interpretation Code 31.8 - 35.4 G/dL AO Auto Heme SS MCV (RBC) [Entitic vol] 97.6 fL Invalid Interpretation Code 80.0 - 94.0 fL AO Auto Heme SS Monocyte, Absolute 0.70 103/mcL Invalid Interpretation Code 0.15 - 1.00 10^3/mcL AO Auto Heme SS Monocytes/100 WBC (Bld) 7.0 % Invalid Interpretation Code 1.7 - 13.0 % AO Auto Heme SS Neutrophil, Absolute 8.20 103/mcL Invalid Interpretation Code 2.85 - 6.16 10^3/mcL AO Auto Heme SS Neutrophils/100 WBC (Bld) 86.2 % Invalid Interpretation Code 37.0 - 80.0 % AO Auto Heme SS Platelet mean volume (Bld) [Entitic vol] 7.0 fL Invalid Interpretation Code 7.4 - 10.4 fL AO Auto Heme SS Platelets (Bld) [#/Vol] 165 103/mcL Invalid Interpretation Code 130 - 400 10^3/mcL AO Auto Heme SS Potassium [Moles/Vol] 4.9 mmol/L Invalid Interpretation Code 3.5 - 5.1 mmol/L AO ADM SS RBC (Bld) [#/Vol] 3.39 106/mcL Invalid Interpretation Code 4.04 - 6.13 10^6/mcL AO Auto Heme SS Sodium [Moles/Vol] 139 mmol/L Invalid Interpretation Code 136 - 145 mmol/L AO ADM SS Urea nitrogen [Mass/Vol] 34 mg/dL Invalid Interpretation Code 7 - 18 mg/dL AO ADM SS Urea nitrogen/Creatinine [Mass ratio] 23 ratio Invalid Interpretation Code 7 - 27 ratio AO ADM SS WBC (Bld) [#/Vol] 9.60 103/mcL Invalid Interpretation Code 4.60 - 10.80 10^3/mcL AO Auto Heme SS LABORATORYOrdered By: [employer] SYSTEM on 08-21-2021 GFR 55 ml/min/1.73sqm Invalid Interpretation Code AO Chemistry S GFR Non- 46 ml/min/1.73sqm Invalid Interpretation Code AO Chemistry S LABORATORYOrdered By: Shelia Garcia on 08-20-2021 ABO/Rh Interp Positive Invalid Interpretation Code AO BB SS Antibody Screen Gel Negative ABSC (08/20/21 8:53 AM) Invalid Interpretation Code AO BB SS LABORATORYOrdered By: Jimbo Mckeon on 08-09-2021 ABO/Rh Interp Positive Invalid Interpretation Code AO BB SS Antibody Screen Gel Negative ABSC (08/09/21 10:01 AM) Invalid Interpretation Code AO BB SS LABORATORYOrdered By: Bam Hernandez on 08-09-2021 Albumin BCP dye [Mass/Vol] 4.0 G/dL Invalid Interpretation Code 3.4 - 4.8 G/dL AO ADM SS Calcium [Mass/Vol] 9.3 mg/dL Invalid Interpretation Code 8.4 - 10.2 mg/dL AO ADM SS Chloride [Moles/Vol] 106 mmol/L Invalid Interpretation Code 98 - 107 mmol/L AO ADM SS CO2 [Moles/Vol] 28 mmol/L Invalid Interpretation Code 23 - 31 mmol/L AO ADM SS Creatinine [Mass/Vol] 1.17 mg/dL Invalid Interpretation Code 0.70 - 1.30 mg/dL AO ADM SS Electrolyte Balance 7.0 mEq/L Invalid Interpretation Code 4.0 - 15.0 mEq/L AO ADM SS Glucose [Mass/Vol] 95 mg/dL Invalid Interpretation Code 83 - 110 mg/dL AO ADM SS Potassium [Moles/Vol] 4.0 mmol/L Invalid Interpretation Code 3.5 - 5.1 mmol/L AO ADM SS Sodium [Moles/Vol] 141 mmol/L Invalid Interpretation Code 136 - 145 mmol/L AO ADM SS Urea nitrogen [Mass/Vol] 23 mg/dL Invalid Interpretation Code 7 - 18 mg/dL AO ADM SS Urea nitrogen/Creatinine [Mass ratio] 20 ratio Invalid Interpretation Code 7 - 27 ratio AO ADM SS LABORATORYOrdered By: Christen Odonnell on 08-09-2021 Basophil, Absolute 0.00 103/mcL Invalid Interpretation Code 0.00 - 0.19 10^3/mcL AO Auto Heme SS Basophils/100 WBC (Bld) 0.1 % Invalid Interpretation Code 0.0 - 2.5 % AO Auto Heme SS Eosinophil, Absolute 0.10 103/mcL Invalid Interpretation Code 0.00 - 0.40 10^3/mcL AO Auto Heme SS Eosinophils/100 WBC (Bld) 3.8 % Invalid Interpretation Code 0.0 - 7.0 % AO Auto Heme SS Erythrocyte distribution width (RBC) [Ratio] 13.6 % Invalid Interpretation Code 11.5 - 14.5 % AO Auto Heme SS Hematocrit (Bld) [Volume fraction] 37.4 % Invalid Interpretation Code 42.0 - 52.0 % AO Auto Heme SS Hemoglobin (Bld) [Mass/Vol] 13.2 G/dL Invalid Interpretation Code 14.0 - 18.0 G/dL AO Auto Heme SS Lymphocyte, Absolute 0.80 103/mcL Invalid Interpretation Code 0.77 - 3.85 10^3/mcL AO Auto Heme SS Lymphocytes/100 WBC (Bld) 20.8 % Invalid Interpretation Code 10.0 - 50.0 % AO Auto Heme SS MCH (RBC) [Entitic mass] 33.8 pg Invalid Interpretation Code 27.0 - 31.2 pg AO Auto Heme SS MCHC (RBC) [Mass/Vol] 35.2 G/dL Invalid Interpretation Code 31.8 - 35.4 G/dL AO Auto Heme SS MCV (RBC) [Entitic vol] 95.9 fL Invalid Interpretation Code 80.0 - 94.0 fL AO Auto Heme SS Monocyte, Absolute 0.30 103/mcL Invalid Interpretation Code 0.15 - 1.00 10^3/mcL AO Auto Heme SS Monocytes/100 WBC (Bld) 8.8 % Invalid Interpretation Code 1.7 - 13.0 % AO Auto Heme SS Neutrophil, Absolute 2.40 103/mcL Invalid Interpretation Code 2.85 - 6.16 10^3/mcL AO Auto Heme SS Neutrophils/100 WBC (Bld) 66.5 % Invalid Interpretation Code 37.0 - 80.0 % AO Auto Heme SS Platelet mean volume (Bld) [Entitic vol] 7.2 fL Invalid Interpretation Code 7.4 - 10.4 fL AO Auto Heme SS Platelets (Bld) [#/Vol] 175 103/mcL Invalid Interpretation Code 130 - 400 10^3/mcL AO Auto Heme SS RBC (Bld) [#/Vol] 3.90 106/mcL Invalid Interpretation Code 4.04 - 6.13 10^6/mcL AO Auto Heme SS WBC (Bld) [#/Vol] 3.60 103/mcL Invalid Interpretation Code 4.60 - 10.80 10^3/mcL AO Auto Heme SS LABORATORYOrdered By: SYSTEM SYSTEM on 08-09-2021 GFR 74 ml/min/1.73sqm Invalid Interpretation Code AO Chemistry S GFR Non- 61 ml/min/1.73sqm Invalid Interpretation Code AO Chemistry S Vital Signs Date Time Vital Sign Value Performing Clinician Facility 07-01-2023 10:23-0500 Heart rate 70 /min RUBIO REBOLLEDO MD [facility] 07-01-2023 08:38-0500 Heart rate 88 /min RUBIO REBOLLEDO MD [facility] 07-01-2023 08:38-0500 Reason For Taking VItal Signs RUBIO REBOLLEDO MD [facility] 07-01-2023 07:11-0500 Body temperature 98.24 [degF] RUBIO REBOLLEDO MD [facility] 07-01-2023 07:11-0500 Diastolic Blood Pressure Non-Invasive 70 mm[Hg] RUBIO REBOLLEDO MD [address] 07-01-2023 07:11-0500 Heart rate 72 /min RUBIO REBOLLEDO MD [address] [place] [address] 07-01-2023 07:11-0500 Mean blood pressure 83 mm[Hg] RUBIO REBOLLEDO MD [address] [place] [address] 07-01-2023 07:11-0500 Reason For Taking VItal Signs RUBIO REBOLLEDO MD [address] [place] [address] 07-01-2023 07:11-0500 Respiratory rate 16 /min RUBIO REBOLLEDO MD [address] [place] [address] 07-01-2023 07:11-0500 Systolic Blood Pressure Non-Invasive 122 mm[Hg] RUBIO REBOLLEDO MD [address] [place] [address] 07-01-2023 04:22-0500 Body temperature 98.24 [degF] RUBIO REBOLLEDO MD [address] [place] [address] 07-01-2023 04:22-0500 Diastolic Blood Pressure Non-Invasive 81 mm[Hg] RUBIO REBOLLEDO MD [address] [place] [address] 07-01-2023 04:22-0500 Heart rate 70 /min RUBIO REBOLLEDO MD [address] [place] [address] 07-01-2023 04:22-0500 Mean blood pressure 97 mm[Hg] RUBIO REBOLLEDO MD [address] [place] [address] 07-01-2023 04:22-0500 Reason For Taking VItal Signs RUBIO REBOLLEDO MD [address] [place] [address] 07-01-2023 04:22-0500 Respiratory rate 16 /min RUBIO REBOLLEDO MD [address] [place] [address] 07-01-2023 04:22-0500 Systolic Blood Pressure Non-Invasive 138 mm[Hg] RUBIO REBOLLEDO MD [address] [place] [address] 06-30-2023 23:12-0500 Body temperature 98.6 [degF] RUBIO REBOLLEDO MD [facility] 06-30-2023 23:12-0500 Diastolic Blood Pressure Non-Invasive 83 mm[Hg] RUBIO REBOLLEDO MD [address] [place] [address] 06-30-2023 23:12-0500 Mean blood pressure 96 mm[Hg] RUBIO REBOLLEDO MD [address] [place] [address] 06-30-2023 23:12-0500 Respiratory rate 18 /min RUBIO REBOLLEDO MD [address] [place] [address] 06-30-2023 23:12-0500 Systolic Blood Pressure Non-Invasive 130 mm[Hg] RUBIO REBOLLEDO MD [address] [place] [address] 06-30-2023 08:35-0500 Body height 185.4 cm RUBIO REBOLLEDO MD [address] [place] [address] 06-30-2023 08:35-0500 Body weight 101.2 kg RUBIO REBOLLEDO MD [address] [place] [address] 06-30-2023 08:35-0500 Heart rate 50 /min RUBIO REBOLLEDO MD [address] 08-05-2022 16:43-0500 Body height 185.42 cm [facility] 08-22-2021 07:04-0500 Body temperature 98.06 [degF] DR DUC SCHERER MD [facility] 08-22-2021 07:04-0500 Diastolic blood pressure 64 mm[Hg] DR DUC SCHERER MD [facility] 08-22-2021 07:04-0500 Heart rate 65 /min DR DUC SCHERER MD [facility] 08-22-2021 07:04-0500 Reason For Taking VItal Signs DR DUC SCHERER MD [facility] 08-22-2021 07:04-0500 Respiratory rate 18 /min DR DUC SCHERER MD [facility] 08-22-2021 07:04-0500 Systolic blood pressure 108 mm[Hg] DR DUC SCHERER MD [facility] 08-22-2021 04:51-0500 Reason For Taking VItal Signs DR DUC SCHERER MD [facility] 08-22-2021 04:30-0500 Body temperature 97.7 [degF] DR DUC SCHERER MD [facility] 08-22-2021 04:30-0500 Diastolic blood pressure 62 mm[Hg] DR DUC SCHERER MD [facility] 08-22-2021 04:30-0500 Heart rate 71 /min DR DUC SCHERER MD [facility] 08-22-2021 04:30-0500 Mean blood pressure 84 mm[Hg] DR DUC SCHERER MD [facility] 08-22-2021 04:30-0500 Reason For Taking VItal Signs DR DUC SCHERER MD [facility] 08-22-2021 04:30-0500 Respiratory rate 18 /min DR DUC SCHERER MD [facility] 08-22-2021 04:30-0500 Systolic blood pressure 127 mm[Hg] DR DUC SCHERER MD [facility] 08-21-2021 23:50-0500 Body temperature 97.7 [degF] DR DUC SCHERER MD [facility] 08-21-2021 23:50-0500 Diastolic blood pressure 66 mm[Hg] DR DUC SCHERER MD [facility] 08-21-2021 23:50-0500 Heart rate 82 /min DR DUC SCHERER MD [facility] 08-21-2021 23:50-0500 Mean blood pressure 79 mm[Hg] DR DUC SCHERER MD [facility] 08-21-2021 23:50-0500 Respiratory rate 18 /min DR DUC SCHERER MD [facility] 08-21-2021 23:50-0500 Systolic blood pressure 104 mm[Hg] DR DUC SCHERER MD [facility] 08-21-2021 19:16-0500 Heart rate 66 /min DR DUC SCHERER MD [facility] 08-21-2021 19:16-0500 Mean blood pressure 72 mm[Hg] DR DUC SCHERER MD [facility] 08-21-2021 16:42-0500 Heart rate 66 /min DR DUC SCHERER MD [facility] 08-20-2021 17:22-0500 Heart rate 66 /min DR DUC SCHERER MD [facility] 08-20-2021 16:35-0500 Diastolic Blood Pressure NBP [address] DUC SCHERER MD [facility] 08-20-2021 16:35-0500 Systolic Blood Pressure NBP [address] DUC SCHERER MD [facility] 08-20-2021 15:11-0500 Body height [address] DUC SCHERER MD [facility] 08-20-2021 15:11-0500 Body weight 104.[address] DUC SCHERER MD [facility] 08-20-2021 15:11-0500 Body weight 31.55 kg/m2 DR DUC SCHERER MD [facility] 08-20-2021 13:15-0500 Diastolic Blood Pressure NBP [address] DUC SCHERER MD [facility] 08-20-2021 13:15-0500 Systolic Blood Pressure NBP [address] DUC SCHERER MD [facility] 08-20-2021 12:59-0500 Diastolic Blood Pressure NBP [address] DUC SCHERER MD [facility] 08-20-2021 12:59-0500 Systolic Blood Pressure NBP [address] DUC SCHERER MD [facility] 08-20-2021 12:25-0500 Body temperature 96.8 [degF] DR DUC SCHERER MD [facility] 08-20-2021 09:06-0500 Body height [address] DUC SCHERER MD [facility] 08-20-2021 09:06-0500 Body temperature 97.16 [degF] DR DUC SCHERER MD [facility] 08-20-2021 09:06-0500 Body weight 104.[address] DUC SCHERER MD [facility] 08-20-2021 09:06-0500 Body weight 31.55 kg/m2 DR DUC SCHERER MD [facility] 08-20-2021 09:06-0500 Heart rate 76 /min DR DUC SCHERER MD [facility] 08-09-2021 09:24-0500 Body height 182.[address] DUC SCHERER MD [facility] 08-09-2021 09:24-0500 Body weight 104.[address] DUC SCHERER MD [facility] 08-09-2021 09:24-0500 Body weight 31.24 kg/m2 DR DUC SCHERER MD [facility] 08-09-2021 09:24-0500 diastolic 70 mm[Hg] DR DUC SCHERER MD [facility] 08-09-2021 09:24-0500 Heart rate 71 /min DR DUC SCHERER MD [facility] 08-09-2021 09:24-0500 systolic 152 mm[Hg] DR DUC SCHERER MD [facility] Encounters Encounter Date Encounter Type Care Provider Facility Start: 11-07-2024 End: 11-07-2024 ambulatory CHI DURAN PHARMACEUTICAL REPRESENTATIVE - [employer]ER Facility:[facility] Start: 11-07-2024 End: 11-07-2024 Patient encounter procedure TANYA WYLIE [facility] Start: 10-18-2024 End: 10-18-2024 ambulatory CHI DURAN PHARMACEUTICAL REPRESENTATIVE - [employer] TENDER Facility:[facility] Start: 10-18-2024 Encounter for preprocedural laboratory examination GREGORIO NEAL [facility] Start: 10-18-2024 End: 10-18-[address] GREGORIO NEAL [facility] Start: 10-18-2024 End: 10-18-[address] GREGORIO NEAL MD [facility] Start: 10-17-2024 End: 10-17-2024 ambulatory CHI DURAN PHARMACEUTICAL REPRESENTATIVE - [employer] BOX TENDER Facility:[facility] Start: 10-17-2024 End: 10-17-2024 Patient encounter procedure CHI DURAN PHARMACEUTICAL REPRESENTATIVE - [employer] BOX TENDER [facility] Start: 08-23-2024 End: 08-23-2024 ambulatory GREGORIO NEAL Facility:[facility] Start: 08-23-2024 End: 08-23-[address] GREGORIO NEAL [facility] Start: 06-30-2024 End: 06-30-2024 ambulatory DERICK AMOR Facility:[facility] Start: 06-30-2024 End: 06-30-2024 Patient encounter procedure DERICK AMOR MD [facility] Start: 06-09-2024 End: 06-13-2024 ambulatory CHI DURAN PHARMACEUTICAL REPRESENTATIVE - [employer] BOX TENDER Facility:[facility] Start: 06-09-2024 End: 06-13-2024 Outreach Lab CHI DURAN PHARMACEUTICAL REPRESENTATIVE - [employer]OX TENDER [facility] Start: 02-18-2024 End: 02-22-[address] GREGORIO NEAL MD Facility:[facility] Start: 02-18-2024 End: 02-22-[address] GREGORIO NEAL MD [facility] Start: 12-10-2023 End: 12-14-2023 ambulatory CHI DURAN PHARMACEUTICAL REPRESENTATIVE - [employer] T[employer]ER Facility:[facility] Start: 12-10-2023 End: 12-14-2023 Outreach Lab CHI DURAN PHARMACEUTICAL REPRESENTATIVE - [employer]OX T[employer]ER [facility] Start: 10-12-2023 ambulatory CHI D DAPHNEP MIKA PHARMACEUTICAL REPRESENTATIVE - [employer] BOX TENDER Facility:[facility] Start: 09-23-2023 End: 11-12-2023 ambulatory CHI DURAN PHARMACEUTICAL REPRESENTATIVE - [employer] T[employer]ER Facility:[facility] Start: 09-23-2023 End: 11-12-2023 Cardiac Rehab RUBIO REBOLLEDO MD [facility] Start: 08-10-2023 End: 08-10-2023 ambulatory CHI DURAN PHARMACEUTICAL REPRESENTATIVE - [employer] T[employer]ER Facility:[facility] Start: 08-10-2023 End: 08-10-2023 Patient encounter procedure SIMI SIMMONS PHARMACEUTICAL REPRESENTATIVE-[employer] BOX TENDER [facility] Start: 07-30-2023 End: 07-30-2023 ambulatory CHI SERNAPKINS PHARMACEUTICAL REPRESENTATIVE - [employer]OX TENDER Facility:[facility] Start: 07-28-2023 End: 07-28-2023 ambulatory CHI DURAN PHARMACEUTICAL REPRESENTATIVE - [employer] TENDER Facility:[facility] Start: 07-28-2023 End: 07-28-2023 Patient encounter procedure SIMI SIMMONS PHARMACEUTICAL REPRESENTATIVE-[employer] BOX TENDER [facility] Start: 06-30-2023 End: 07-01-2023 Evaluation and management of inpatient RUBIO REBOLLEDO MD [facility] Start: 06-24-2023 End: 06-24-2023 ambulatory CHI SERNAPKINS PHARMACEUTICAL REPRESENTATIVE - [employer] BOX TENDER Facility:[facility] Start: 06-24-2023 End: 06-24-2023 Patient encounter procedure SIMI SIMMONS PHARMACEUTICAL REPRESENTATIVE-DRIP BOX TENDER [facility] Start: 12-20-2023 ambulatory SIMI SIMMONS PHARMACEUTICAL REPRESENTATIVE-DRIP BOX TENDER Facility:A Start: 05-28-2023 End: 05-28-2023 ambulatory CHI DURAN PHARMACEUTICAL REPRESENTATIVE - DRIP BOX TENDER Facility:A Start: 05-28-2023 End: 05-28-2023 Patient encounter procedure SIMI SIMMONS PHARMACEUTICAL REPRESENTATIVE-DRIP BOX TENDER [facility] Start: 05-27-2023 End: 05-27-2023 ambulatory CHI DURAN PHARMACEUTICAL REPRESENTATIVE - DRIP BOX TENDER Facility:B Start: 05-22-2023 End: 05-22-2023 ambulatory CHI DURAN PHARMACEUTICAL REPRESENTATIVE - DRIP BOX TENDER Facility:B Start: 05-22-2023 End: 05-22-2023 Patient encounter procedure CHI DURAN PHARMACEUTICAL REPRESENTATIVE - DRIP BOX TENDER [facility] Start: 05-19-2023 End: 05-21-2023 Evaluation and management of inpatient DR GEO BETH MD Facility:A Start: 05-19-2023 End: 05-19-2023 ambulatory SHRAVAN VEGA MD Facility:A Start: 05-19-2023 End: 05-19-2023 Patient encounter procedure ABISAI JAIN MD [facility] Start: 12-29-2022 End: 01-02-2023 Outreach Lab JAZ BADILLO PHARMACEUTICAL REPRESENTATIVE-DRIP BOX TENDER [facility] Start: 11-20-2022 End: 11-20-[address] GREGORIO NEAL MD [facility] Start: 08-05-2022 End: 08-05-2022 Patient encounter procedure [facility], Specimen Start: 08-05-2022 End: 08-05-2022 ambulatory Chi Duran UI UX ENGINEER [facility] Work Phone: Start: 05-23-2022 End: 05-23-2022 Patient encounter procedure CHI DURAN PHARMACEUTICAL REPRESENTATIVE - DRIP BOX TENDER [facility] Start: 09-02-2021 End: 09-02-2021 Patient encounter procedure CHI DURAN PHARMACEUTICAL REPRESENTATIVE - DRIP BOX TENDER [facility] Start: 08-26-2021 End: 08-26-2021 Patient encounter procedure ADONIS MADDEN PA-C [facility] Start: 08-20-2021 End: 08-22-[address] DUC SCHERER MD [facility] Start: 08-09-2021 End: 08-09-[address] DUC SCHERER MD [facility] Start: 06-25-2021 End: 06-25-2021 Patient encounter procedure JOHN SAMUELS MD [facility] Procedures Date Procedure Procedure Detail Performing Clinician Start: 06-11-2024 PSA screening CHI PHAM PHARMACEUTICAL REPRESENTATIVE - DRIP BOX TENDER Comment on above: Result Comment: Deepak PARKINSON methodology. According to the [employer] [place] [employer], Serum PSA should decrease and remain at undetectable levels after radical prostatectomy. The AUA defines biochemical recurrence as an initial PSA value 0.2 ng/mL or greater followed by a subsequent confirmatory PSA value 0.2 ng/mL or greater. Values obtained with different assay methods or kits cannot be used interchangeably. Results cannot be interpreted as absolute evidence of the presence or absence of malignant disease. Performed By: #### A DIFF, GFR, A1C, CBC, CMP, LIPID, VIDH, [id number], ANEU #### [facility] [address], [place] [address] #### PTH #### [address] [address] Start: 06-09-2024 PSA screening CHI PHAM [facility] Comment on above: Result Comment: Deepak PARKINSON methodology. According to the [place] [employer], Serum PSA should decrease and remain at undetectable levels after radical prostatectomy. The AUA defines biochemical recurrence as an initial PSA value 0.2 ng/mL or greater followed by a subsequent confirmatory PSA value 0.2 ng/mL or greater. Values obtained with different assay methods or kits cannot be used interchangeably. Results cannot be interpreted as absolute evidence of the presence or absence of malignant disease. Start: 07-28-2023 Echocardiography SEAN DURAN [place] Comment on above: Summary: 1. Left ventricle: The cavity size is normal. Wall thickness is normal. Systolic function is normal. The estimated ejection fraction is 60-65%. Wall motion is normal; there are no regional wall motion abnormalities. Diastolic dysfunction is present. 2. Aortic valve: A bioprosthetic valve is present. There is no significant regurgitation. The peak systolic velocity is 2.9 m/sec. The mean systolic gradient is 18 mm Hg. 3. Right ventricle: The RV systolic pressure by Doppler is 39 mm Hg. 4. Right atrium: The estimated right atrial pressure is 3 mm Hg. Start: 06-30-2023 Transcatheter aortic valve implantation CHI DURAN APRN [employer] Comment on above: Procedures performed : Temporary pacing. Right common femoral angiography. Ascending aortography. Transcatheter aortic valve replacement. SUMMARY: Successful placement of a 26 mm Paredes valve. Start: 05-20-2023 Cardiac catheterization CHI DURAN APRN [employer] Comment on above: SUMMARY: 1. Left ventricle: Systolic function is normal. The estimated ejection fraction is 55-60%. Wall motion is normal; there are no regional wall motion abnormalities. 2. Aortic valve: There is moderate stenosis. 3. Left main: Distal vessel lesion: There is a 100% . 4. LAD: Proximal vessel lesion: There is a 100% . 5. Right coronary: Proximal vessel lesion: There is a 100% . 6. Saphenous vein graft from the aorta to the mid 1st diagonal: Proximal graft lesion: There is a 100% . IMPRESSIONS: 1. 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 2. all grafts patent except svg to diagonal artery know to be occluded from previous caths, not new. no significant disease normal left ventricular function. stress twst false positive. does appear to have aortic stenosis which maybe culprit for symptoms. to proceed with further evaluation. continue iv hydration thru tomnight with d/c tomorroe if renal function stable. no complications. Start: 08-20-2021 Arthroplasty of righ t hip joint DR DUC SCHERER MD Start: 07-06-2020 Prosthetic arthropla sty of the hip JOHN SAMUELS MD Start: 11-28-2019 Extraction of cataract JOHN SAMUELS MD Start: 08-30-2019 Cardiac catheterization JOHN SAMUELS MD Comment on above: failed graft to diag onal but other grafts all widely patent with excellent flow , diagonal now fills via [place] to lad. med mx only no complications Start: 08-06-2016 Cardiovascular stres s test using pharmacologic stress agent JOHN SAMUELS MD Start: 08-15-2014 Cardiovascular stres s test using treadmill JOHN SAMUELS MD Start: 08-03-2014 Colonoscopy JOHN GARCIA MD Comment on above: Repeat in 2024 Start: 06-22-2009 Coronary artery bypa ss graft operation planned JOHN SAMUELS MD History of coronary artery bypass grafting History of coronary artery bypass graft( Confirmed ) JOHN SAMUELS MD Total knee replacement JOHN SAMUELS MD Comment on above: ISAIAS Immunizations Immunization Date Immunization Notes Care Provider Fa arelis 02-18-2024 SARS-CoV-2 (COVID-19 ) [id number] CHI DURAN PHARMACEUTICAL REPRESENTATIVE - DRIP BOX TENDER [facility] 01-21-2024 influenza virus vacc ine, unspecified formulation CHI DURAN PHARMACEUTICAL REPRESENTATIVE - DRIP BOX TENDER [facility] 08-30-2023 SARS-CoV-2 (COVID-19 ) [id number] CHI DURAN PHARMACEUTICAL REPRESENTATIVE - DRIP BOX TENDER [facility] 04-17-2023 influenza virus vacc ine, unspecified formulation ABISAI JAIN MD [facility] 04-17-2023 RSV vaccine preF3, recombinant ABISAI JAIN MD [facility] 04-17-2023 SARS-CoV-2 (COVID-19 ) [id number] ABISAI JAIN MD [facility] 10-24-2022 SARS-CoV-2 (CV19)mRNA-1273 bivalent vac ABISAI JAIN MD [facility] 03-30-2022 influenza virus vacc ine, unspecified formulation ABISAI JAIN MD [facility] 02-22-2022 SARS-CoV-2 (CV19)mRNA-1273 bivalent vac ABISAI JAIN MD [facility] 09-19-2021 SARS-CoV-2 (COVID-19 ) mRNA-1273 vaccine ABISAI JAIN MD [facility] 07-07-[address] DUC SCHERER MD [facility] 04-23-2021 influenza virus vacc ine, unspecified formulation JOHN SAMUELS MD [facility] 03-22-2021 SARS-CoV-2 mRNA (tozinameran) vaccine JOHN SAMUELS MD [facility] 08-23-2020 SARS-CoV-2 mRNA (tozinameran) vaccine JOHN SAMUELS MD [facility] 08-02-2020 SARS-CoV-2 mRNA (tozinameran) vaccine JOHN SAMUELS MD [facility] Comment on above: Result Comment: 2020: [id number] 07-25-2020 SARS-CoV-2 mRNA (tozinameran) vaccine JOHN SAMUELS MD [facility] 02-03-2020 influenza virus vacc ine, H1N1, live JOHN SAMUELS MD [facility] 03-05-2019 influenza virus vacc ine, unspecified formulation JOHN SAMUELS MD [facility] 12-02-2018 zoster vaccine, live JOHN CRYSTAL MD [facility] 04-30-2018 pneumococcal polysaccharide vaccine, 23 valent JOHN SAMUELS MD [facility] 04-22-2018 influenza virus vacc ine, unspecified formulation JOHN SAMUELS MD [facility] 02-20-2018 influenza virus vacc ine, unspecified formulation JOHN SAMUELS MD [facility] 02-22-2017 influenza virus vacc ine, unspecified formulation JOHN SAMUELS MD [facility] 09-02-2016 pneumococcal polysaccharide vaccine, 23 valent JOHN SAMUELS MD [facility] 02-08-2016 influenza virus vacc ine, unspecified formulation JOHN SAMUELS MD [facility] 02-04-2016 influenza virus vacc ine, unspecified formulation JOHN SAMUELS MD [facility] 02-13-2015 influenza virus vacc ine, unspecified formulation JOHN SAMUELS MD [facility] 02-06-2015 pneumococcal conjuga te vaccine, 13 valent JOHN SAMUELS MD [facility] 03-05-2014 tetanus and diphther ia toxoids, adsorbed, preservative free, for adult use (2 Lf of tetanus toxoid and 2 Lf of diphtheria toxoid) [facility] 02-20-2014 influenza virus vacc ine, unspecified formulation JOHN SAMUELS MD [facility] 06-23-2013 tetanus toxoid, redu perla diphtheria toxoid, and acellular pertussis vaccine, adsorbed JOHN SAMUELS MD [facility] Payers Date Payer Category Payer Medicare [id number] 2022 Self-pay 2022 Unknown [id number] 2019 Private Health Insurance [id number] 2011 Medicare [id number] 1945 Unknown [id number] 2.16.8 40.1.948456.3.579.2.627 1945 Unknown [id number] 2.16.8 40.1.044184.3.579.2.627 1946 Unknown [id number] 2.16.8 40.1.688569.3.579.2.627 1945 Unknown [id number] 2.16.8 40.1.619651.3.579.2.7 1946 Unknown [id number] 2.16.8 40.1.237842.3.579.2. 1945 Unknown [id number] 2.16.8 40.1.907658.3.579.2.627 1946 Unknown [id number] 2.16.8 40.1.235523.3.579.2.7 1945 Unknown [id number] 2.16.8 40.1.404748.3.579.2.7 1945 Unknown [id number] 2.16.8 40.1.098106.3.579.2.7 1945 Unknown [id number] 2.16.8 40.1.454261.3.579.2.627 1945 Unknown [id number] 2.16.8 40.1.092476.3.579.2.627 1946 Unknown [id number] 2.16.8 40.1.312686.3.579.2.627 1946 Unknown [id number] 2.16.8 40.1.644392.3.579.2.627 1946 Unknown [id number] 2.16.8 40.1.492682.3.579.2.627 1946 Unknown [id number] 2.16.8 40.1.719142.3.579.2.627 1946 Unknown [id number] 2.16.8 40.1.818233.3.579.2.627 1946 Unknown [id number] 2.16.8 40.1.662430.3.579.2.627 1946 Unknown [id number] 2.16.8 40.1.056782.3.579.2.627 1946 Unknown [id number] 2.16.8 40.1.993932.3.579.2.627 1946 Unknown [id number] 2.16.8 40.1.949627.3.579.2.627 1946 Unknown [id number] 2.16.8 40.1.151200.3.579.2.627 1946 Unknown [id number] 2.16.8 40.1.341427.3.579.2.627 Unknown [id number] 2.16.8 40.1.591913.3.579.2.462 Social History Date Type Detail Facility Start: 05-09-2019 End: 07-04-2024 Never smoked tobacco (finding) [facility] Comment on above: No smoke exposure Start: 1945 Sex Assigned At Male [facility]: [facility]05-[facility] Orientation [facility] Start: 05-17-2019 Sex Male (finding) [facility] Functional Status Date Assessment Result Facility 07-01-2023 Functional Status Room check performed [facility] 07-01-2023 Functional Status [facility] 07-01-2023 Functional Status [facility] 06-30-2023 Functional Status [facility] 06-30-2023 Functional Status [facility] 06-30-2023 Functional Status Patient Identi fied Identification band, Verbal [facility] 06-30-2023 Functional Status Maintained [facility] Mental Status Date Assessment Result Facility 07-01-2023 Mental Status Oriented x 4 [facility] 07-01-2023 Mental Status [facility] 06-30-2023 Mental Status [facility] 06-30-2023 Mental Status [facility] Clinical Notes 08-21-2021 to 10-17-2024 Note Date & Type Note Facility 10-17-2024 Note Exam Date Time Procedure Performing Provider Status 10/17/24 3:[address] Abdomen/Pelvis w/Contrast ROMEO ARDON MD; Auth (Verified) [id number] ORIGINAL EXAMINATION: CT OF THE ABDOMEN AND PELVIS WITH CONTRAST10/17/2024 3:27 pm TECHNIQUE: CT of the abdomen and pelvis was performed with the administration of intravenous contrast. Multiplanar reformatted images are provided for review. Automated exposure control, iterative reconstruction, and/or weight based adjustment of the mA/kV was utilized to reduce the radiation dose to as low as reasonably achievable. COMPARISON: 06/30/2024 HISTORY: ORDERING SYSTEM PROVIDED HISTORY: Reason for Exam: see comments RLQ PAIN & CONSTIPATION SINCE THURSDAY. POSSIBLE BLOCKAGE. FINDINGS: Cardiomegaly and TAVR noted. Atherosclerosis seen of the visualized coronary arteries. Atelectasis/scarring seen in the lung bases. The liver, spleen, adrenal glands, and pancreas are within normal limits. No filling defects seen in the gallbladder. A delayed left nephrogram noted. Small renal calculi seen. Left hydroureteronephrosis is identified. The pelvis is obscured by artifacts from the bilateral hip arthroplasties. There is likely a small calculus in the distal 3rd of the left ureter, image 116. Small nonobstructing right renal calculi visible. The large and small bowel demonstrate no obstruction. Scattered colonic diverticula noted. No free intraperitoneal fluid or gas is identified. The aorta is normal in caliber. There is moderate atherosclerosis of the larger arteries. There is no lymphadenopathy. No filling defects seen in the urinary bladder. There is no acute fracture or aggressive osseous lesion. Moderate T12 compression deformity is believed to be chronic. Bilateral hip arthroplasties. Degenerative changes seen of the hips and spine. IMPRESSION: 1. Left hydroureteronephrosis with a delayed left nephrogram. There is likely a small calculus in the distal 3rd of the left ureter. The pelvis/distal ureter is obscured by artifacts from the bilateral hip arthroplasties. 2. Other incidental findings. Interpreted by: Romeo Ardon MD Preliminary Report By: Romeo Ardon MD Electronically signed By Romeo Ardon MD Dictated Date: 10/17/2024 3:31:35 PM Prelim Date: 10/17/2024 3:37:12 PM Sign Date: 10/17/2024 3:37:12 PM Ordering Provider: CHI DURAN [facility]01-10-2024 Note Discharge Instructions Thank you for allowing [place] to assist you with your healthcare needs. The following is importantdischarge information regarding your hospital visit. Your Care Team CHI DURAN APRN - DRIP BOX TENDER Your Diagnosis Acute on chronic heart failure with preserved ejection fraction (HFpEF) Aortic stenosis, severe CAD (coronary artery disease) CKD (chronic kidney disease), stage III HTN, goal below 140/90 Hyperlipidemia LDL goal <100 Increased BMI (body mass index) PSA elevation S/P TAVR (transcatheter aortic valve replacement) What to do next Instructions From Your Doctor - No heavy lifting, pushing, or pulling more than 10 lb for 10-14 days - May shower starting tomorrow. No tub bathing/swimming pool/hot tub until groin site completely healed - Wash groin sites at least once a day with new washcloth and antibacterial soap for 1 week or until healed - Do not apply any cream, powder, or lotion to area until completely healed - If present, may remove dressings on groin sites while in shower tomorrow. May leave open to air or cover with loose gauze dressing - If you did not receive an envelope prior to discharge, you will be called/mailed information for follow-up testing (echocardiogram and lab work) to be done before your follow-up visit. Lab work should be done around the same time as your echocardiogram and can be done at any lab. - New medication: Plavix 75 mg once a day for 3 months (90 days) - Continue your Aspirin - Due to your tissue heart valve you will need to take antibiotics prior to any dental work. A prescription for amoxicillin was sent to your pharmacy. Take 4 capsules (2000 mg) one hour prior to any dental work - Please call Jinny (RN valve coordinator) [phone] or Simi (nurse practitioner) [phone] with questions/concerns regarding procedure or follow-up. Scheduled Follow-Up Appointments Appointment Type When With Where Contact InformationCV Procedure - AOH Echo 07/28/2023 01:00 PM [facility] Radiology [phone] CV OV 09/07/2023 10:[address] [facility] 12/10/2023 08:00 AM EDT [facility] OV Follow Up 12/14/2023 08:00 AM EDT CHI DURAN APRN - [facility] Follow Up Appointments Follow Up with Echocardiogram When In 4 weeks Why: Our office will mail you information regarding follow-up testing/office visit. This departmentis located in the first floor lobby of the [facility]. Please have lab work done around the same time, prior to your office visit. Where: Follow Up with RUBIO REBOLLEDO MD When In 4 weeks Why: TAVR follow up; echo and lab work prior to office visit Where: [address] [facility] [place] [address]- [phone] Follow Up with [facility] will contact you for an appointment in 4-6weeks If you have any questions please call:[phone]. When Where: Follow Up with CHI DURAN When Within 1-2 days Where: [address] [place] [address]- Business (1) The Following Activity and Diet Have Been Ordered for You Discharge Activity - Ordered -- Lifting Restricted less than 10 pounds, No pushing, pulling, or lifting more than 10 lb for 10-14 days. Driving restricted for 2 days. May shower starting tomorrow., 07/01/23 10:16:00 EST Discharge Diet - Ordered -- No changes were made to your diet during your hospital stay. Please resume your pre hospitalization diet on discharge., 07/01/23 10:16:00 EST The Following Equipment Has Been Ordered for You Discharge Home Equipment Discharge Wound Care - Ordered -- Keep groin site(s) clean and dry until healed. Wash daily with antibacterial soap. Cleanse gently and pat dry. Keep area clean and dry until healed (typically 5-7 days)., 07/01/23 10:16:00 EST The Following Treatments Have Been Ordered for You Discharge Labs No qualifying data available. Discharge Radiology No qualifying data available. Other Therapies No qualifying data available. Post Acute Orders No qualifying data available. Someone Will Contact You Regarding These Home Health Referrals No home referrals have been ordered for you. No one will call you. Allergies NKA Medications Please ask your primary doctor or pharmacist before taking any other medication not listed, including over the counter drugs, herbal medications, vitamins and or supplements as they may interact withyour home medications. What How Much When Why Instructions Last Dose New clopidogrel (Plavix 75 mg oral tablet) 1 tab(s) by mouth Once a day Pickup at [facility]/pharmacy #[id number] Unchanged aspirin (aspirin 81 mg oral delayed release tablet) 1 tab(s) by mouth Every day Unchanged finasteride (Proscar 5 mg oral tablet) 1 tab(s) by mouth Once a day PSA elevation Duration: 90 Days PSA elevation Unchanged metoprolol (metoprolol succinate 25 mg oral TABLET extended release) 1 tab(s) by mouth Once a day CAD (coronary artery disease) Duration: 90 Days Do not crush or chew (controlled release) Unchanged ramipril (ramipril 10 mg oral capsule) 1 cap by mouth Once a day HTN, goal below 140/90 Duration: 90 Days Unchanged rosuvastatin (rosuvastatin 40 mg oral tablet) 1 tab(s) by mouth Once a day Unchanged tamsulosin (tamsulosin 0.4 mg oral capsule) 1 cap by mouth Once a day Duration: 90 Days Pharmacy Information [facility]/pharmacy #[id number]: [address], [place] [id number] [phone] Please take this list to your next doctor s visit. Bring all medications you take, including over the counter medications, herbals and other supplements with you to your doctor s visit. Patients and families are reminded to discard old lists and to update any records with all medication providers or retail pharmacies. Education Materials Incision Care, Adult An incision is a cut that a doctor makes in your skin for surgery (for a procedure). Most times, these cuts are closed after surgery. Your cut from surgery may be closed with stitches (sutures), karin, skin glue, or skin tape (adhesive strips). You may need to return to your doctor to have stitches or karin taken out. This may happen many days or many weeks after your surgery. The cut needs to be well cared for so it does not get infected. How to care for your cut Cut care Follow instructions from your doctor about how to take care of your cut. Make sure you: ? Wash your hands with soap and water before you change your bandage (dressing). If you cannot use soap and water, use hand port steward. ? Change your bandage as told by your doctor. ? Leave stitches, skin glue, or skin tape in place. They may need to stay in place for 2 weeks or longer. If tape strips get loose and curl up, you may trim the loose edges. Do not remove tape strips completely unless your doctor says it is okay. Check your cut area every day for signs of infection. Check for: ? More redness, swelling, or pain. ? More fluid or blood. ? Warmth. ? Pus or a bad smell. Ask your doctor how to clean the cut. This may include: ? Using mild soap and water. ? Using a clean towel to pat the cut dry after you clean it. ? Putting a cream or ointment on the cut. Do this only as told by your doctor. ? Covering the cut with a clean bandage. Ask your doctor when you can leave the cut uncovered. Do not take baths, swim, or use a hot tub until your doctor says it is okay. Ask your doctor if youcan take showers. You may only be allowed to take sponge baths for bathing. Medicines If you were prescribed an antibiotic medicine, cream, or ointment, take the antibiotic or put it onthe cut as told by your doctor. Do not stop taking or putting on the antibiotic even if your condition gets better. Take vgiy-ybe-fmdayms and prescription medicines only as told by your doctor. General instructions Limit movement around your cut. This helps healing. ? Avoid straining, lifting, or exercise for the first month, or for as long as told by your doctor. ? Follow instructions from your doctor about going back to your normal activities. ? Ask your doctor what activities are safe. Protect your cut from the sun when you are outside for the first 6 months, or for as long as told by your doctor. Put on sunscreen around the scar or cover up the scar. Keep all follow-up visits as told by your doctor. This is important. Contact a doctor if: Your have more redness, swelling, or pain around the cut. You have more fluid or blood coming from the cut. Your cut feels warm to the touch. You have pus or a bad smell coming from the cut. You have a fever or shaking chills. You feel sick to your stomach (nauseous) or you throw up (vomit). You are dizzy. Your stitches or karin come undone. Get help right away if: You have a red streak coming from your cut. Your cut bleeds through the bandage and the bleeding does not stop with gentle pressure. The edges of your cut open up and separate. You have very bad (severe) pain. You have a rash. You are confused. You pass out (faint). You have trouble breathing and you have a fast heartbeat. This information is not intended to replace advice given to you by your health care provider. Make sure you discuss any questions you have with your health care provider. Document Released: 08/30/2012 Document Revised: 10/26/2017 Document Reviewed: 02/13/2017 Elsevier Patient Education 2020 [employer] TRANSCATHETER AORTIC VALVE REPLACEMENT (TAVR) Discharge Instructions DIET INSTRUCTIONS Resume your previous diet as tolerated Drink plenty of fluids for the next 48 hours to help your kidneys flush the dye out of your system ACTIVITIES May go up and down stairs CAREFULLY AFTER [address] FOR 5 DAYS AFTER PROCEDURE No heavy lifting GREATER THAN 10 POUNDS or pushing or straining FOR 5 DAYS Someone must stay with you at home after the procedure FOR 3 DAYS BATHING/SHOWERING May tub bathe in 1 week May shower tomorrow, but cover groin incisions with plastic for 3 days after procedure WOUND CARE You will go home with a Band-Aid over your catheter insertion site. Keep a Band- Aid on for the next24 hours and then leave open to air. Some degree of bruising and tenderness is normal around the catheter insertion site. It will take awhile for any bruising to completely resolve. Keep your site clean and dry. You need to report the following to your outpatient interviewing clerk: Any draining or oozing from the site Any swelling at the site Any increased pain or tenderness at the site Any numbness in your leg where the procedure was done Any signs of infection IMPORTANT! CALL 911 FOR ANY BLEEDING OR SWELLING AT THE PROCEDURE SITE If there is any large amount of bleeding, you or someone else need to apply direct pressure to the site (just like the nurse did in the heart lab after your procedure). It is very important that you hold constant pressure. Do not release the pressure to check if the bleeding has stopped. You then need to be transported to the nearest emergency room. WATCH FOR SIGNS OF INFECTION (Usually appears 36-48 hours after surgery) A temperature above 100.5 Redness or swelling Increased pain Foul odor or drainage If you have any questions, please call your doctor at the number listed on your follow up instructions. CONTACT YOUR CARDIOLOGY OFFICE FOR A PRESCRIPTION FOR ANTIBIOTICS PRIOR TO ANY DENTAL PROCEDURE! Follow all instructions given to you by your doctor Additional Information VACCINATE! IT SAVES LIVES! Members of the community who have not yet received the COVID-19 vaccine and would like to receive it can visit one of [facility] vaccine clinics. There are many vaccine clinic locations within the [facility]. For locations and available times, please visit [email or web address] It is important to note that some COVID mobile vaccine clinics are held outdoors and may be canceled in rainy or stormy conditions. To learn more about pediatric vaccinations (ages 5-11), we invite you to visit the [facility] webpage. [email or web address] learn more about the COVID-19 vaccine, we invite you to visit the CDC website for a list of frequently asked questions.https://www.cdc.gov/coronavirus/2019-ncov/vaccines/faq.html [facility] Patient Portal Access Instructions: Stay connected with your healthcare team and access your personal medical information anytime with the [facility] Patient Portal. Please follow the directions below to create your [facility] account: 1.Access the email account you provided upon registration to the hospital/physician office.2.Look for an invitation email from [facility].3.Open the email and access the invitation link: AcceptInvitation to [employer].4.Fill in the required montesinos to create your account. To access your account, visit [email or web address]. Click the blue button labeled Access Patient Portal and then log in with the username and password that you created in the steps above. You will be able to view your test results, lab results, a summary of your visits, upcoming appointments and more. There is also a convenient messaging option where you can send secure messages to your p [employer]. In addition, you will have the ability to download any documents or summaries to your computer and/or send the information securely to a physician. Remember that your healthcare information is confidential, so carefully consider who you will allowto register on the [facility] Portal for access to your information. You can also access the [facility] Patient Portal on the [facility] [employer]. Simply click on Patient Portal and then log into your account. If you would like to receive a full copy of your medical records, please contact the [facility] Medical Records Department by calling [phone], Thursday through Thursday between 8 a.m. and 4:30 p.m. HOW TO SAFELY DISPOSE OF PRESCRIPTION MEDICATIONS Please use one of the following methods to safely dispose of your unused medications. 1.Use a drug disposal kit: the drug disposal pouch allows you to safely discard your old and unuseddrugs. Ask your nurse to give you one when you are discharged.2.Visit a local take-back location: Many local pharmacies and police departments have programs that collect old and unwanted prescriptiondrugs. Call your local pharmacy or go to http://bit.ly/7J6Cb6i to find one close to you.3.Make use of household items: Use cat litter or old coffee grounds to dispose medications if other options arenot available. Mix your drugs with these household products, seal them in an airtight container andthrow it into the garbage. Call [facility]: [phone] to be sure your drugs can be disposed of in this way. Some medicines may require a different approach.4.Never flush your medications down the toilet. IF YOU HAVE BEEN PRESCRIBED AN OPIOID FOR PAIN If you have been prescribed an opioid (such as hydrocodone, oxycodone or morphine), it is critical to understand the possible side effects and risks of opioid pain medications. Even when taken as directed, opioids can have several side effects including: Tolerance, meaning you might need to take more of a medication for the same pain relief. Nausea, vomiting and/or constipation. Sleepiness, dizziness, dry mouth, confusion, depression or itching. Physical dependence, meaning you have withdrawal symptoms when a medication is stopped, can develop within a few days. KNOW YOUR RESPONSIBILITIES It is important to know exactly how much and how often to take the opioid pain medications you are prescribed. Never take opioids in higher amounts or more often than prescribed. Do not combine opioids with alcohol or other drugs that cause drowsiness, such as benzodiazepines, also known as benzos, including diazepam and alprazolam, muscle relaxants or sleep aids. Never sell or share prescription opioids. This is illegal. Store opioids in a secure place and out of reach of others (including children, family, friends and visitors). The last page of this document has been signed and retained as a CHART COPY. Signatures Patient Education Materials Incision Care, Adult, Mvdk-yz-Domf 3- SH TRANSCATHETER AORTIC VALVE REPLACEMENT (TAVR) Discharge Instructions 07/06/2018(CUSTOM) Medication Leaflets My discharge plan and instructions have been reviewed and explained to me and IMARITZA JAMES W understand my current condition and have read and understand these discharge instructions. I have receiveda written copy of the plan/instructions. If I have questions, I am aware that I should contact my do ctor. Patient/Legal Mediator Signature: Date/Time: Relationship to Patient: Witness Name/Signature: Date/Time: [id number] Note* Exam Date Time Procedure Performing Provider Status 07/01/23 8:40 AM Echocardiogram, Adult - CV Auth (Verified) [facility] 01-10-2024 Hospital Discharge instructions Patient Education 07/01/2023 03:30:18 Incision Care, Adult, Kxbk-su-Wxzd Incision Care, Adult An incision is a cut that a doctor makes in your skin for surgery (for a procedure). Most times, these cuts are closed after surgery. Your cut from surgery may be closed with stitches (sutures), karin, skin glue, or skin tape (adhesive strips). You may need to return to your doctor to have stitches or karin taken out. This may happen many days or many weeks after your surgery. The cut needs to be well cared for so it does not get infected. How to care for your cut Cut care Follow instructions from your doctor about how to take care of your cut. Make sure you: ?Wash your hands with soap and water before you change your bandage (dressing). If you cannot use soap and water, use hand port steward. ?Change your bandage as told by your doctor. ?Leave stitches, skin glue, or skin tape in place. They may need to stay in place for 2 weeks or longer. If tape strips get loose and curl up, you may trim the loose edges. Do not remove tape strips completely unless your doctor says it is okay. Check your cut area every day for signs of infection. Check for: ?More redness, swelling, or pain. ?More fluid or blood. ?Warmth. ?Pus or a bad smell. Ask your doctor how to clean the cut. This may include: ?Using mild soap and water. ?Using a clean towel to pat the cut dry after you clean it. ?Putting a cream or ointment on the cut. Do this only as told by your doctor. ?Covering the cut with a clean bandage. Ask your doctor when you can leave the cut uncovered. Do not take baths, swim, or use a hot tub until your doctor says it is okay. Ask your doctor if youcan take showers. You may only be allowed to take sponge baths for bathing. Medicines If you were prescribed an antibiotic medicine, cream, or ointment, take the antibiotic or put it onthe cut as told by your doctor. Do not stop taking or putting on the antibiotic even if your condition gets better. Take yhzs-ytz-tvakuxn and prescription medicines only as told by your doctor. General instructions Limit movement around your cut. This helps healing. ?Avoid straining, lifting, or exercise for the first month, or for as long as told by your doctor. ?Follow instructions from your doctor about going back to your normal activities. ?Ask your doctor what activities are safe. Protect your cut from the sun when you are outside for the first 6 months, or for as long as told by your doctor. Put on sunscreen around the scar or cover up the scar. Keep all follow-up visits as told by your doctor. This is important. Contact a doctor if: Your have more redness, swelling, or pain around the cut. You have more fluid or blood coming from the cut. Your cut feels warm to the touch. You have pus or a bad smell coming from the cut. You have a fever or shaking chills. You feel sick to your stomach (nauseous) or you throw up (vomit). You are dizzy. Your stitches or karin come undone. Get help right away if: You have a red streak coming from your cut. Your cut bleeds through the bandage and the bleeding does not stop with gentle pressure. The edges of your cut open up and separate. You have very bad (severe) pain. You have a rash. You are confused. You pass out (faint). You have trouble breathing and you have a fast heartbeat. This information is not intended to replace advice given to you by your health care provider. Make sure you discuss any questions you have with your health care provider. Document Released: 08/30/2012 Document Revised: 10/26/2017 Document Reviewed: 02/13/2017 [employer] Patient Education 2020 [employer] 07/01/2023 03:30:11 3- TRANSCATHETER AORTIC VALVE REPLACEMENT (TAVR) Discharge Instructions 07/06/2018(CUSTOM) TRANSCATHETER AORTIC VALVE REPLACEMENT (TAVR) Discharge Instructions DIET INSTRUCTIONS Resume your previous diet as tolerated Drink plenty of fluids for the next 48 hours to help your kidneys flush the dye out of your system ACTIVITIES May go up and down stairs CAREFULLY AFTER [address] FOR 5 DAYS AFTER PROCEDURE No heavy lifting GREATER THAN 10 POUNDS or pushing or straining FOR 5 DAYS Someone must stay with you at home after the procedure FOR 3 DAYS BATHING/SHOWERING May tub bathe in 1 week May shower tomorrow, but cover groin incisions with plastic for 3 days after procedure WOUND CARE You will go home with a Band-Aid over your catheter insertion site. Keep a Band- Aid on for the next24 hours and then leave open to air. Some degree of bruising and tenderness is normal around the catheter insertion site. It will take awhile for any bruising to completely resolve. Keep your site clean and dry. You need to report the following to your outpatient interviewing clerk: Any draining or oozing from the site Any swelling at the site Any increased pain or tenderness at the site Any numbness in your leg where the procedure was done Any signs of infection IMPORTANT! CALL 911 FOR ANY BLEEDING OR SWELLING AT THE PROCEDURE SITE If there is any large amount of bleeding, you or someone else need to apply direct pressure to the site (just like the nurse did in the heart lab after your procedure). It is very important that you hold constant pressure. Do not release the pressure to check if the bleeding has stopped. You then need to be transported to the nearest emergency room. WATCH FOR SIGNS OF INFECTION (Usually appears 36-48 hours after surgery) A temperature above 100.5 Redness or swelling Increased pain Foul odor or drainage If you have any questions, please call your doctor at the number listed on your follow up instructions. CONTACT YOUR CARDIOLOGY OFFICE FOR A PRESCRIPTION FOR ANTIBIOTICS PRIOR TO ANY DENTAL PROCEDURE! Follow all instructions given to you by your doctor Follow Up Care 06/24/2023 11:30:15 With:Echocardiogram Address: When:Within 4 Week(s) Comments:Our office will mail you information regarding follow-up testing/office visit. This department is located in the first floor lobby of the [facility]. Please have lab work done around the same time, prior to your office visit. With:RUBIO REBOLLEDO MD Address: [address] [place] [address] [address] [address]- [phone] When:Within 4 Week(s) Comments:TAVR follow up; echo and lab work prior to office visit With:[facility] will contact you for an appointment in 4- 6weeks If you have any questions please call:[phone]. Address: When: Unknown With:CHI DURAN Address: [address] [facility] [place] [address]- Business (1) When:1-2 days [facility] 01-09-2024 Note* Exam Date Time Procedure Performing Provider Status 06/30/23 2:16 PM Echocardiogram, Adult - CV Auth (Verified) [facility] 01-09-2024 NoteSINUS RHYTHM VENTRICULAR PREMATURE COMPLEX BORDERLINE PROLONGED DE INTERVAL PROBABLE LATERAL INFARCT, AGE INDETERMINATE Electronic Signature: ELLE BARRETT MD 07/01/2023 14:26:49[facility] 01-09-2024 Note* Exam Date Time Procedure Performing Provider Status 06/30/23 12:16 PM Transcatheter Aortic Valve Replacement-C Auth (Verified) [facility] 01-09-2024 NoteSINUS RHYTHM BORDERLINE PROLONGED DE INTERVAL PROBABLE LATERAL INFARCT, AGE INDETERMINATE ABNRM T, CONSIDER ISCHEMIA, ANTEROLATERAL LDS Electronic Signature: ELLE BARRETT MD 07/01/2023 14:26:26[facility] 11-28-2023 Evaluation + Plan noteExtracted from: Title:History and Physical Author:SHRAVAN EVGA MD Date:05/19/23 1. CAD, positive stress test , pending C -S/p CABG x5 (LHC in 2020:-Patent COLUNGA-LAD, FELIBERTO-RCA, SVG-RI, SVG-OM1; occluded SVG-D1 graft) 2. CKD stage IIIb (baseline creatinine 1.5-1.6) 3. Essential hypertension 4. Dyslipidemia -We will admit patient to CCU and plan for LHC on 05/20/23. -IVF NS at 75 cc/h for hydration prior to C given underlying CKD. -Continue ASA, rosuvastatin; hold ramipril today. Addendum by GEO BETH MD on May 19, 2023 12:34:50 EST I agree with above finding I saw patient myself. Stress test appears to be abnormal in the anterior anteroseptal wall reversibility and he did have some pressure and shortness of breath during exertion. Will plan to proceed with a cardiac catheterization today. I have seen & examined this patient myself, reviewed all data and agree with the fellow's findings and with the plan of care and management delineated in the fellow's documentation note Future Appointments Appointment Date:05/21/2023 09:15:00 AM Scheduled Provider: Location:[email or web address] Appointment Type:PC Nurse Lab Appointment Date:05/25/2023 08:20:00 AM Scheduled Provider:CHI DURAN APRN, CNP Location:[employer] [facility] Appointment Type:PC OV Follow Up Appointment Date:05/28/2023 09:00:00 AM Scheduled Provider: Location:[facility] Appointment Type:CV OV Diagnostic Tests Pending * Complete Blood Count 05/19/23 * Complete Metabolic Panel 05/19/23 * Magnesium Level 05/19/23 * APTT Panel 05/19/23 * Prothrombin Time - Panel 05/19/23 * A1C Hemoglobin 05/20/23 * Lipid Profile 05/19/23 * Thyroid Stimulating Hormone 05/20/23 * Basic Metabolic Panel 05/20/23 * Complete Blood Count 05/20/23 * Magnesium Level 05/20/23 * Troponin I High Sensitivity 05/19/23 * Troponin I High Sensitivity 05/19/23 Future Scheduled Tests Laboratory* Prostate Specific Antigen 05/26/23 * A1C Hemoglobin 05/26/23 * Complete Blood Count 05/26/23 * Lipid Profile 05/26/23 * Albumin/Creatinine Ratio, Random Urine 05/26/23 * Microalbumin Level Urine 06/14/22 * Microalbumin Level Urine 11/27/22 * Complete Metabolic Panel 05/26/23 * B. pertussis and parapertussis by SHELLIE 01/06/23 Radiology* XR Chest 2 Views (PA & Lateral) 01/06/23 [facility] 11-28-2023 Note Date of Service 05/19/23 Procedure: Exercise treadmill stress test Patient underwent exercise treadmill stress test using Justin protocol. Patient achieved I stages, exercising for a total of 4 minutes. Patient achieved 4.4 METS which is Poor functional capacity given patient's age and gender. Patient had a baseline heart rate of 56bpm and it peaked at 133bpm at peak exercise, which is 92% of the predicted maximal heart rate. The heart rate recovery was lower than expected. Patient had a resting blood pressure of 130/74mmHg and this peaked at 154/74mmHg with exercise, which is a normal response. The patient did experience SOB,chest pain which resolved at the end of the test. Patient's baseline EKG showed sinus bradycardia, non-specific T wave inversions in I, aVL. During the stress, no EKG changes suggestive of ischemia were noted. Patient had occasional PVCs during exercise, persisting 3 mins into recovery phase. IMPRESSION: 1. EKG portion of the exercise stress test is negative for inducible ischemia. 2. Appropriate heart rate and blood pressure response with exercise. 3. Patient did experience some shortness of breath during the protocol. Patient did not report any significant chest pain. 4. PVCs were noted during exercise, a poor prognostic marker 5. Fair functional capacity. 6. Esparza Treadmill Score was +0 The EKGs were also reviewed by the attending physician. See addendum to this note by the attending physician for additional comments. Digitally Signed by SHRAVAN VEGA MD on 05/19/2023 11:23 AM [id number] History and physical note Date of Service 05/19/23 Chief Complaint Exertional dyspnea x 6 months History of Present Illness Patient is a 77-year-old gentleman who is being admitted to same-day cardiac unit for [facility] followinga positive nuclear stress test earlier this morning. 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 He follows up with Dr. Jain at [facility] office with last visit being on 04/30/2023 when he had been evaluated for exertional dyspnea/intermittent chest discomfort x6 months duration with a nuclear stress test that was done on 05/19. ECG portion of nuclear stress test was negative (despite having some mild ST changes did not meet ECG criteria for ischemia and few PVCs during exercise persisting 3 minutes into recovery phase), however, review of nuclear stress images revealed small reversible perfusion defect in apical - mid anterior wall. Patient had right- sided mild chest pain exercise portion of stress test that resolved with rest earlier today. He denies orthopnea/PND/palpitations/pedal edema/syncopal episodes in the recent past. Given recent symptoms and positive nuclear stress test, after discussion with patient, we decided to admit him for [facility]. Review of Systems CONSTITUTIONAL: Patient denies fevers, chills, sweats. EYES: Patient denies any visual symptoms. EARS, NOSE, AND THROAT: No difficulties with hearing. No symptoms of rhinitis or sore throat. CARDIOVASCULAR: Mentioned above RESPIRATORY: No wheezing or cough GI: No nausea, vomiting, diarrhea, constipation, abdominal pain, hematochezia or melena. : No urinary hesitancy or dribbling. No nocturia or urinary frequency. No abnormal urethral discharge. MUSCULOSKELETAL: No myalgias or arthralgias. NEUROLOGIC: No chronic headaches, no seizures. Patient denies new onset numbness, tingling or weakness. DERMATOLOGIC: Patient denies any new rashes or skin changes. Physical Exam Vitals and Measurements No qualifying data available. GENERAL APPEARANCE: Well built SKIN: Warm and well perfused. LYMPHATICS: No cervical adenopathy is noted. EXTREMITIES: No cyanosis/clubbing. No pedal edema noted bilaterally HEENT: Normocephalic and atraumatic. No scleral icterus. Pupils are equal, round, and reactive to light and accommodation. JVD is not elevated NECK: Supple. Trachea is midline. No lymphadenopathy. CHEST: Symmetric. Nontender to palpation. LUNGS: Air entry is equal bilaterally. No wheezes, rhonchi, or rales. HEART: Regular rate and rhythm S1 and S2 heard. No murmurs, gallops, or rubs. ABDOMEN: Soft. No organomegaly. NEUROLOGIC: A&O, moving all four extremities. Lab Results No 36 Hour Lab Data Imaging Results and Diagnostics NM Myocardial Spect Rest/Stress Result Date: May 19, 2023 Verified By: SAGAR HERNANDEZ MD CLINICAL STATEMENT: IMPRESSION: 1. Mild stress-induced reversible perfusion abnormality involving the anterior wall, with interval improvement, is identified.2. Cardiac systolic function is borderline with estimated ejection fraction of 52 %. Assessment/Plan 1. CAD, positive stress test, pending LHC -S/p CABG x5 (LHC in 2019:-Patent COLUNGA-LAD, FELIBERTO-RCA, SVG-RI, SVG-OM1; occluded SVG-D1 graft) 2. CKD stage IIIb (baseline creatinine 1.5-1.6) 3. Essential hypertension 4. Dyslipidemia -We will admit patient to CCU and plan for LHC on 05/20/23. -IVF NS at 75 cc/h for hydration prior to LHC given underlying CKD. -Continue ASA, rosuvastatin; hold ramipril today. Problem List/Past Medical History Ongoing 08/19/09 CABG X 5, LSVG, BIMA, TPW's Pre-op IABP --- Dr. Zhou Anemia in CKD (chronic kidney disease) Arthritis CAD (coronary artery disease) CAD IN THE [place] ARTERY Chronic left hip pain CKD (chronic kidney disease), stage III History of coronary artery bypass graft HTN, goal below 140/90 HX: Arthritis, Hyperlipidemia Hyperlipidemia LDL goal <100 HYPERTENSION, UNSPECIFIED (Renamed from ESSENTIAL (PRIMARY) HYPERTENSION) IFG (impaired fasting glucose) Increased BMI (body mass index) MIXED HYPERLIPIDEMIA MYOCARDIAL INFARCTION, OLD (412.) (Renamed from HEALED MYOCARDIAL INFARCT) Non-smoker Osteoarthritis PSA elevation Screening for prostate cancer Historical Overweight Procedure/Surgical History Cataract extraction: 11/28/19 Stress testing using pharmacologic-induced stress: 08/06/16 Stress test ECG - treadmill: 08/15/14 Colonoscopy: 08/03/14 CABG (Coronary artery bypass grafting) planned: 2009 Total knee arthroplasty Medications Home Medications (8) Active aspirin 81 mg = 1 tab(s), Oral, BIDM meloxicam 15 mg oral tablet 15 mg = 1 tab(s), Oral, qDay metoprolol succinate 25 mg oral TABLET extended release 25 mg = 1 tab(s), Oral, qDay Proscar 5 mg oral tablet 5 mg = 1 tab(s), Oral, qDay ramipril 10 mg oral capsule 10 mg = 1 cap(s), Oral, qDay rosuvastatin 40 mg oral tablet 40 mg = 1 tab(s), Oral, qHS tamsulosin 0.4 mg oral capsule 0.4 mg = 1 cap(s), Oral, qDay Tylenol 1,000 mg = 2 tab(s), Oral, TID Allergies NKA Social History Smoking Status - 08/28/2009 Unable to obtain Alcohol Use: Past., 05/09/2019 Home/Environment Domestic Concerns: None. Living situation: Home/Independent. Primary Voice Intercept Technician: Self. Lives In: Multilevel home, Split level home, 1st floor bathroom. Current Home Treatments None. Spouse Name: PEPE. Marital Status: ., 06/11/2020 Nutrition/Health Type of diet: Regular. Appetite Good. Eating Difficulties None. Caffeine intake amount: Tea-2 per day., 08/30/2019 Substance Abuse Use: Never., 05/09/2019 Tobacco Tobacco Use: Never (less than 100 in lifetime)., 05/09/2019 Family History CAD - Coronary artery disease: Mother. Prostate cancer: Father. Immunizations pneumococcal 13-valent conjugate vaccine: 0 unknown unit (02/06/15) pneumococcal 23-valent vaccine(Pneumovax: 0.5 unknown unit (04/30/18) pneumococcal 23-valent vaccine(Pneumovax: 0 unknown unit (09/02/16) SARS-CoV-2 mRNA (tozinameran) vaccine: 0 unknown unit (03/22/21) SARS-CoV-2 mRNA (tozinameran) vaccine: 0 unknown unit (08/23/20) SARS-CoV-2 mRNA (tozinameran) vaccine: 0.3 unknown unit (08/02/20) SARS-CoV-2 mRNA (tozinameran) vaccine: 0 unknown unit (07/25/20) tetanus/diphth/pertuss (Tdap) adult/adol: 0 unknown unit (06/23/13) zoster vaccine live: 0 unknown unit (12/02/18) zoster vaccine, inactivated: 0.5 unknown unit (07/07/21) Code Status Code Status - Ordered -- 05/19/23 11:11:00 EST, Full Code, Constant Order Digitally Signed by SHRAVAN VEGA MD on 05/19/2023 11:33 AM Digitally Signed by SHRAVAN VEGA MD on 05/19/2023 11:52 AM [id number] History and physical note Date of Service 05/19/23 Chief Complaint Exertional dyspnea x 6 months History of Present Illness Patient is a 77-year-old gentleman who is being admitted to same-day cardiac unit for LHC followinga positive nuclear stress test earlier this morning. 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 He follows up with Dr. aJin at [facility] office with last visit being on 04/30/2023 when he had been evaluated for exertional dyspnea/intermittent chest discomfort x6 months duration with a nuclear stress test that was done on 05/19. ECG portion of nuclear stress test was negative (despite having some mild ST changes did not meet ECG criteria for ischemia and few PVCs during exercise persisting 3 minutes into recovery phase), however, review of nuclear stress images revealed small reversible perfusion defect in apical - mid anterior wall. Patient had right- sided mild chest pain exercise portion of stress test that resolved with rest earlier today. He denies orthopnea/PND/palpitations/pedal edema/syncopal episodes in the recent past. Given recent symptoms and positive nuclear stress test, after discussion with patient, we decided to admit him for LHC. Review of Systems CONSTITUTIONAL: Patient denies fevers, chills, sweats. EYES: Patient denies any visual symptoms. EARS, NOSE, AND THROAT: No difficulties with hearing. No symptoms of rhinitis or sore throat. CARDIOVASCULAR: Mentioned above RESPIRATORY: No wheezing or cough GI: No nausea, vomiting, diarrhea, constipation, abdominal pain, hematochezia or melena. : No urinary hesitancy or dribbling. No nocturia or urinary frequency. No abnormal urethral discharge. MUSCULOSKELETAL: No myalgias or arthralgias. NEUROLOGIC: No chronic headaches, no seizures. Patient denies new onset numbness, tingling or weakness. DERMATOLOGIC: Patient denies any new rashes or skin changes. Physical Exam Vitals and Measurements No qualifying data available. GENERAL APPEARANCE: Well built SKIN: Warm and well perfused. LYMPHATICS: No cervical adenopathy is noted. EXTREMITIES: No cyanosis/clubbing. No pedal edema noted bilaterally HEENT: Normocephalic and atraumatic. No scleral icterus. Pupils are equal, round, and reactive to light and accommodation. JVD is not elevated NECK: Supple. Trachea is midline. No lymphadenopathy. CHEST: Symmetric. Nontender to palpation. LUNGS: Air entry is equal bilaterally. No wheezes, rhonchi, or rales. HEART: Regular rate and rhythm S1 and S2 heard. No murmurs, gallops, or rubs. ABDOMEN: Soft. No organomegaly. NEUROLOGIC: A&O, moving all four extremities. Lab Results No 36 Hour Lab Data Imaging Results and Diagnostics NM Myocardial Spect Rest/Stress Result Date: May 19, 2023 Verified By: SAGAR HERNANDEZ MD CLINICAL STATEMENT: IMPRESSION: 1. Mild stress-induced reversible perfusion abnormality involving the anterior wall, with interval improvement, is identified.2. Cardiac systolic function is borderline with estimated ejection fraction of 52 %. Assessment/Plan 1. CAD, positive stress test, pending LHC -S/p CABG x5 (LHC in 2019:-Patent COLUNGA-LAD, FELIBERTO-RCA, SVG-RI, SVG-OM1; occluded SVG-D1 graft) 2. CKD stage IIIb (baseline creatinine 1.5-1.6) 3. Essential hypertension 4. Dyslipidemia -We will admit patient to CCU and plan for LHC on 05/20/23. -IVF NS at 75 cc/h for hydration prior to LHC given underlying CKD. -Continue ASA, rosuvastatin; hold ramipril today. Problem List/Past Medical History Ongoing 08/19/09 CABG X 5, LSVG, BIMA, TPW's Pre-op IABP --- Dr. Zhou Anemia in CKD (chronic kidney disease) Arthritis CAD (coronary artery disease) CAD IN THE [place] ARTERY Chronic left hip pain CKD (chronic kidney disease), stage III History of coronary artery bypass graft HTN, goal below 140/90 HX: Arthritis, Hyperlipidemia Hyperlipidemia LDL goal <100 HYPERTENSION, UNSPECIFIED (Renamed from ESSENTIAL (PRIMARY) HYPERTENSION) IFG (impaired fasting glucose) Increased BMI (body mass index) MIXED HYPERLIPIDEMIA MYOCARDIAL INFARCTION, OLD (412.) (Renamed from HEALED MYOCARDIAL INFARCT) Non-smoker Osteoarthritis PSA elevation Screening for prostate cancer Historical Overweight Procedure/Surgical History Cataract extraction: 11/28/19 Stress testing using pharmacologic-induced stress: 08/06/16 Stress test ECG - treadmill: 08/15/14 Colonoscopy: 08/03/14 CABG (Coronary artery bypass grafting) planned: 2009 Total knee arthroplasty Medications Home Medications (8) Active aspirin 81 mg = 1 tab(s), Oral, BIDM meloxicam 15 mg oral tablet 15 mg = 1 tab(s), Oral, qDay metoprolol succinate 25 mg oral TABLET extended release 25 mg = 1 tab(s), Oral, qDay Proscar 5 mg oral tablet 5 mg = 1 tab(s), Oral, qDay ramipril 10 mg oral capsule 10 mg = 1 cap(s), Oral, qDay rosuvastatin 40 mg oral tablet 40 mg = 1 tab(s), Oral, qHS tamsulosin 0.4 mg oral capsule 0.4 mg = 1 cap(s), Oral, qDay Tylenol 1,000 mg = 2 tab(s), Oral, TID Allergies NKA Social History Smoking Status - 08/28/2009 Unable to obtain Alcohol Use: Past., 05/09/2019 Home/Environment Domestic Concerns: None. Living situation: Home/Independent. Primary Voice Intercept Technician: Self. Lives In: Multilevel home, Split level home, 1st floor bathroom. Current Home Treatments None. Spouse Name: PEPE. Marital Status: ., 06/11/2020 Nutrition/Health Type of diet: Regular. Appetite Good. Eating Difficulties None. Caffeine intake amount: Tea-2 per day., 08/30/2019 Substance Abuse Use: Never., 05/09/2019 Tobacco Tobacco Use: Never (less than 100 in lifetime)., 05/09/2019 Family History CAD - Coronary artery disease: Mother. Prostate cancer: Father. Immunizations pneumococcal 13-valent conjugate vaccine: 0 unknown unit (02/06/15) pneumococcal 23-valent vaccine(Pneumovax: 0.5 unknown unit (04/30/18) pneumococcal 23-valent vaccine(Pneumovax: 0 unknown unit (09/02/16) SARS-CoV-2 mRNA (tozinameran) vaccine: 0 unknown unit (03/22/21) SARS-CoV-2 mRNA (tozinameran) vaccine: 0 unknown unit (08/23/20) SARS-CoV-2 mRNA (tozinameran) vaccine: 0.3 unknown unit (08/02/20) SARS-CoV-2 mRNA (tozinameran) vaccine: 0 unknown unit (07/25/20) tetanus/diphth/pertuss (Tdap) adult/adol: 0 unknown unit (06/23/13) zoster vaccine live: 0 unknown unit (12/02/18) zoster vaccine, inactivated: 0.5 unknown unit (07/07/21) Code Status Code Status - Ordered -- 05/19/23 11:11:00 EST, Full Code, Constant Order Digitally Signed by SHRAVAN VEGA MD on 05/19/2023 11:33 AM Digitally Signed by SHRAVAN VEGA MD on 05/19/2023 11:52 AM [id number] Note ORIGINAL EXAMINATION: CARDIAC SPECT05/19/2023 10:37 am TECHNIQUE: Exercise stress test Target heart rate achieved 133 BPM 92 % Workload: 4.6 METS Radiopharmaceutical (rest and stress doses): Tc-99m Sestamibi IV 8.1 and 26.2 mCi SPECT acquisition and processing: Images reconstructed into short, vertical long, and horizontal long axis planes. Wall motion evaluation and quantitative LVEF assessment. Low-dose attenuation correction CT. COMPARISON: June 25, 2021 HISTORY: Reason for Exam: Exertional Dyspnea FINDINGS: There is mild stress-induced reversible perfusion abnormality anterior wall, most apparent at mid segment. It has improved compared to the prior study. No fixed perfusion defect is seen to suggest infarction. The left ventricular end-diastolic volume is 101 mL. Gated imaging demonstrates mild hypokinesis in the area of perfusion abnormality. Estimated left ventricular ejection fraction is 52 %. TID ratio is normal at 0.94. Low-dose attenuation correction CT demonstrates post CABG changes. The heart is normal in size. No pericardial or pleural effusion is seen. There is no focal consolidation. IMPRESSION: 1. Mild stress-induced reversible perfusion abnormality involving the anterior wall, with interval improvement, is identified. 2. Cardiac systolic function is borderline with estimated ejection fraction of 52 %. Interpreted by: Sagar Hernandez MD Preliminary Report By: Sagar Hernandez MD Electronically signed By Sagar Hernandez MD Dictated Date: 05/19/2023 10:52:42 AM Prelim Date: 05/19/2023 11:04:17 AM Sign Date: 05/19/2023 11:04:17 AM Ordering Provider: [facility]11-28-2023 Note Date of Service 05/19/23 Procedure: Exercise treadmill stress test Patient underwent exercise treadmill stress test using Justin protocol. Patient achieved I stages, exercising for a total of 4 minutes. Patient achieved 4.4 METS which is Poor functional capacity given patient's age and gender. Patient had a baseline heart rate of 56bpm and it peaked at 133bpm at peak exercise, which is 92% of the predicted maximal heart rate. The heart rate recovery was lower than expected. Patient had a resting blood pressure of 130/74mmHg and this peaked at 154/74mmHg with exercise, which is a normal response. The patient did experience SOB,chest pain which resolved at the end of the test. Patient's baseline EKG showed sinus bradycardia, non-specific T wave inversions in I, aVL. During the stress, no EKG changes suggestive of ischemia were noted. Patient had occasional PVCs during exercise, persisting 3 mins into recovery phase. IMPRESSION: 1. EKG portion of the exercise stress test is negative for inducible ischemia. 2. Appropriate heart rate and blood pressure response with exercise. 3. Patient did experience some shortness of breath during the protocol. Patient did not report any significant chest pain. 4. PVCs were noted during exercise, a poor prognostic marker 5. Fair functional capacity. 6. Esparza Treadmill Score was +0 The EKGs were also reviewed by the attending physician. See addendum to this note by the attending physician for additional comments. Digitally Signed by SHRAVAN VEGA MD on 05/19/2023 11:23 AM [id number] Hospital Discharge instructions Patient Education 08/21/2021 07:43:11 5 - [facility] Post-op Instruction 01/2017 (03441) [facility] Post-operative Instructions PLEASE FOLLOW [facility] POST-OP INSTRUCTIONS GIVEN WATCH FOR SIGNS OF INFECTION: call the office ([phone]) if experencing any of the following: (Usually appears 36-48 hours after surgery) Increased temperature (101 degrees Fahrenheit or higher) Redness or swelling Increased uncontrolled pain Foul odor or drainage Calf discomfort Significant swelling Or if having any chest pain, shortness of breath, or difficulty breathing or swallowing call the office or go the nearest Emergency Room. If you have any questions, please call your doctor at the number listed on your follow up instructions. Form: 338A ([id number]) R: 10/26 Follow Up Care 07/03/2021 15:03:14 With:CHI DURAN APRN, CNP Address: [address] [place] [phone]- When:08/29/2021 08:40:00 Comments:Follow-up as needed With:[facility] Address: [address] [place] [phone] When:08/23/2021 13:30:00 Comments:This is your first physical therapy appointment. Follow-up as scheduled. With:ADONIS MADDEN PA-C, Orthopedic, Orthopedic Address: [facility] [address] [place] [id number]- When:09/02/2021 08:45:00 Comments:This is your post-op appointment. Follow-up as scheduled. [facility] Evaluation + Plan note Future Appointments Appointment Date:11/29/2021 08:00:00 AM Scheduled Provider: Location:[facility] Appointment Type:PC Nurse Lab Appointment Date:12/06/2021 08:20:00 AM Scheduled Provider:CHI DURAN APRN, CNP Location:[facility] Appointment Type:PC OV Follow Up Appointment Date:04/24/2022 08:30:00 AM Scheduled Provider: Location:[facility] Appointment Type:CV OV Future Scheduled Tests Laboratory* Renin, Plasma 11/29/21 * Prostate Specific Antigen 11/29/21 * Thyroid Stimulating Hormone 11/29/21 * Complete Blood Count 11/29/21 * Lipid Profile 11/29/21 * PTH, Intact 11/29/21 * Complete Metabolic Panel 11/29/21 [facility] Evaluation + Plan note Future Appointments Appointment Date:08/16/2021 01:00:00 PM Scheduled Provider:JAZ BADILLO Location:[facility] Appointment Type:DOT Physical Appointment Date:11/28/2021 08:15:00 AM Scheduled Provider: Location:[facility] Appointment Type:PC Nurse Lab Appointment Date:12/06/2021 08:20:00 AM Scheduled Provider:CHI DURAN APRN, CNP Location:[facility] Appointment Type:PC OV Follow Up Appointment Date:04/24/2022 08:30:00 AM Scheduled Provider: Location:[facility] Appointment Type:CV OV Future Scheduled Tests Laboratory* Renin, Plasma 11/29/21 * Prostate Specific Antigen 11/29/21 * Thyroid Stimulating Hormone 11/29/21 * Complete Blood Count 11/29/21 * Lipid Profile 11/29/21 * PTH, Intact 11/29/21 * Complete Metabolic Panel 11/29/21 [facility] Evaluation + Plan note Future Appointments Appointment Date:08/29/2021 08:40:00 AM Scheduled Provider:CHI DURAN APRN, CNP Location:[facility] Appointment Type: OV Hospital Follow-Up Appointment Date:11/28/2021 08:15:00 AM Scheduled Provider: Location:[facility] Appointment Type:PC Nurse Lab Appointment Date:12/06/2021 08:20:00 AM Scheduled Provider:CHI DURAN APRN, CNP Location:[facility] Appointment Type:PC OV Follow Up Appointment Date:04/24/2022 08:30:00 AM Scheduled Provider: Location:[facility] Appointment Type:CV OV Future Scheduled Tests Laboratory* Renin, Plasma 11/29/21 * Prostate Specific Antigen 11/29/21 * Thyroid Stimulating Hormone 11/29/21 * Complete Blood Count 11/29/21 * Lipid Profile 11/29/21 * PTH, Intact 11/29/21 * Complete Metabolic Panel 11/29/21 [facility] Evaluation + Plan note Future Appointments Appointment Date:11/28/2021 08:15:00 AM Scheduled Provider: Location:[facility] Appointment Type:PC Nurse Lab Appointment Date:12/09/2021 09:00:00 AM Scheduled Provider:CHI DURAN APRN, CNP Location:[facility] Appointment Type:PC OV Follow Up Appointment Date:04/24/2022 08:30:00 AM Scheduled Provider: Location:[facility] Appointment Type:CV OV Future Scheduled Tests Laboratory* Renin, Plasma 11/29/21 * Prostate Specific Antigen 11/29/21 * Thyroid Stimulating Hormone 11/29/21 * Complete Blood Count 11/29/21 * Lipid Profile 11/29/21 * PTH, Intact 11/29/21 * Complete Metabolic Panel 11/29/21 [facility] [employer] + Plan note Future Appointments Appointment Date:05/29/2022 08:20:00 AM Scheduled Provider:CHI DURAN APRN, CNP Location:[employer] [facility] Appointment Type:PC OV Appointment Date:04/30/2023 08:30:00 AM Scheduled Provider: Location:[facility] Appointment Type:CV OV Future Scheduled Tests Laboratory* Renin, Plasma 11/29/21 * Microalbumin Level Urine 06/14/22 [facility] evaluation + Plan note Future Appointments Appointment Date:11/24/2022 08:20:00 AM Scheduled Provider:CHI DURAN APRN, CNP Location:[facility] Appointment Type:PC OV Follow Up Appointment Date:04/30/2023 02:00:00 PM Scheduled Provider: Location:[facility] Appointment Type:CV OV Future Scheduled Tests Laboratory* Renin, Plasma 11/29/21 * Microalbumin Level Urine 06/14/22 * Microalbumin Level Urine 11/27/22 [facility] [employer] + Plan note Future Appointments Appointment Date:04/30/2023 02:00:00 PM Scheduled Provider: Location:[facility] Appointment Type:CV OV Appointment Date:05/21/2023 09:15:00 AM Scheduled Provider: Location:[facility] Appointment Type:PC Nurse Lab Appointment Date:05/25/2023 08:20:00 AM Scheduled Provider:CHI DURAN APRN, CNP Location:[facility] Appointment Type:PC OV Follow Up Future Scheduled Tests Laboratory* Prostate Specific Antigen 05/26/23 * A1C Hemoglobin 05/26/23 * Complete Blood Count 05/26/23 * Lipid Profile 05/26/23 * Albumin/Creatinine Ratio, Random Urine 05/26/23 * Microalbumin Level Urine 06/14/22 * Microalbumin Level Urine 11/27/22 * Complete Metabolic Panel 05/26/23 [facility] Evaluation + Plan note Future Appointments Appointment Date:05/25/2023 11:00:00 AM Scheduled Provider:CHI DURAN APRN, CNP Location:[employer] [facility] Appointment Type:[facility] Hospital Follow-Up Appointment Date:06/04/2023 03:00:00 PM Scheduled Provider:LO MOORE MD Location:[facility] Appointment Type:[facility]X ENGINEER Outpatient Consult Appointment Date:06/18/2023 03:30:00 PM Scheduled Provider: Location:[facility] Appointment Type:CV OV Future Scheduled Tests Laboratory* A1C Hemoglobin 05/26/23 * Complete Blood Count 05/26/23 * Lipid Profile 05/26/23 * Albumin/Creatinine Ratio, Random Urine 05/26/23 * Microalbumin Level Urine 06/14/22 * Microalbumin Level Urine 11/27/22 * Complete Metabolic Panel 05/26/23 * B. pertussis and parapertussis by SHELLIE 01/06/23 Radiology* CT Angiography TAVR Planning 05/21/23 * XR Chest 2 Views (PA & Lateral) 01/06/23 * XR Panorex/Orthopantogram 05/21/23 [facility] Evaluation + Plan note Future Appointments Appointment Date:06/04/2023 03:00:00 PM Scheduled Provider:LO MOORE MD Location:[facility] Appointment Type:CTS UI UX ENGINEER Outpatient Consult Appointment Date:06/10/2023 01:00:00 PM Scheduled Provider: Location:[facility] Appointment Type:CT Angiography TAVR Planning Appointment Date:09/07/2023 10:45:00 AM Scheduled Provider: Location:[facility] Appointment Type:CV OV Appointment Date:12/10/2023 08:00:00 AM Scheduled Provider: Location:[facility] Appointment Type:PC Nurse Lab Appointment Date:12/14/2023 08:00:00 AM Scheduled Provider:CHI DURAN APRN, CNP Location:[facility] Appointment Type:PC OV Follow Up Future Scheduled Tests Laboratory* Prostate Specific Antigen 11/24/23 * A1C Hemoglobin 11/24/23 * Complete Blood Count 11/24/23 * Lipid Profile 11/24/23 * Albumin/Creatinine Ratio, Random Urine 05/26/23 * Albumin/Creatinine Ratio, Random Urine 11/24/23 * Microalbumin Level Urine 06/14/22 * Microalbumin Level Urine 11/27/22 * PTH, Intact 11/24/23 * Vitamin D Level 11/24/23 * Complete Metabolic Panel 11/24/23 * B. pertussis and parapertussis by SHELLIE 01/06/23 Radiology* CT Angiography TAVR Planning 06/10/23 * XR Chest 2 Views (PA & Lateral) 01/06/23 [facility] Evaluation + Plan note Future Appointments Appointment Date:06/30/2023 09:00:00 AM Scheduled Provider: Location:[facility] Appointment Type:CV Procedure - Heart Lab/Hybrid OR Appointment Date:09/07/2023 10:45:00 AM Scheduled Provider: Location:[facility] Appointment Type:CV OV Appointment Date:12/10/2023 08:00:00 AM Scheduled Provider: Location:[facility] Appointment Type:PC Nurse Lab Appointment Date:12/14/2023 08:00:00 AM Scheduled Provider:CHI DURAN APRN, CNP Location:[facility] Appointment Type:PC OV Follow Up Future Scheduled Tests Laboratory* Prostate Specific Antigen 11/24/23 * A1C Hemoglobin 11/24/23 * Complete Blood Count 11/24/23 * Lipid Profile 11/24/23 * Albumin/Creatinine Ratio, Random Urine 05/26/23 * Albumin/Creatinine Ratio, Random Urine 11/24/23 * Microalbumin Level Urine 06/14/22 * Microalbumin Level Urine 11/27/22 * PTH, Intact 11/24/23 * Vitamin D Level 11/24/23 * Complete Metabolic Panel 11/24/23 * B. pertussis and parapertussis by SHLELIE 01/06/23 Radiology* XR Chest 2 Views (PA & Lateral) 01/06/23 [facility] Evaluation + Plan note Future Appointments Appointment Date:07/28/2023 01:00:00 PM Scheduled Provider: Location:[facility] Appointment Type:CV Procedure - AOH Echo Appointment Date:09/07/2023 10:45:00 AM Scheduled Provider: Location:[facility] Appointment Type:CV OV Appointment Date:12/10/2023 08:00:00 AM Scheduled Provider: Location:[facility] Appointment Type:PC Nurse Lab Appointment Date:12/14/2023 08:00:00 AM Scheduled Provider:CHI DURAN APRN, CNP Location:[facility] Appointment Type:PC OV Follow Up Future Scheduled Tests Laboratory* Basic Metabolic Panel 07/28/23 * Prostate Specific Antigen 11/24/23 * A1C Hemoglobin 11/24/23 * Complete Blood Count 11/24/23 * Complete Blood Count 07/28/23 * Lipid Profile 11/24/23 * Albumin/Creatinine Ratio, Random Urine 05/26/23 * Albumin/Creatinine Ratio, Random Urine 11/24/23 * Microalbumin Level Urine 06/14/22 * Microalbumin Level Urine 11/27/22 * PTH, Intact 11/24/23 * Vitamin D Level 11/24/23 * Complete Metabolic Panel 11/24/23 * B. pertussis and parapertussis by SHELLIE 01/06/23 Radiology* XR Chest 2 Views (PA & Lateral) 01/06/23 [facility] Evaluation + Plan note Future Appointments Appointment Date:08/07/2023 10:00:00 AM Scheduled Provider:SIMI SIMMONS Location:[facility] Appointment Type:CV OV Appointment Date:09/07/2023 10:45:00 AM Scheduled Provider: Location:[facility] Appointment Type:CV OV Appointment Date:12/10/2023 08:00:00 AM Scheduled Provider: Location:[facility] Appointment Type:PC Nurse Lab Appointment Date:12/14/2023 08:00:00 AM Scheduled Provider:CHI DURAN APRN, CNP Location:[facility] Appointment Type:PC OV Follow Up Future Scheduled Tests Laboratory* Basic Metabolic Panel 07/28/23 * Prostate Specific Antigen 11/24/23 * A1C Hemoglobin 11/24/23 * Complete Blood Count 11/24/23 * Complete Blood Count 07/28/23 * Lipid Profile 11/24/23 * Albumin/Creatinine Ratio, Random Urine 05/26/23 * Albumin/Creatinine Ratio, Random Urine 11/24/23 * Microalbumin Level Urine 11/27/22 * PTH, Intact 11/24/23 * Vitamin D Level 11/24/23 * Complete Metabolic Panel 11/24/23 * B. pertussis and parapertussis by SHELLIE 01/06/23 Radiology* XR Chest 2 Views (PA & Lateral) 01/06/23 [facility] Evaluation + Plan note Future Appointments Appointment Date:09/07/2023 10:45:00 AM Scheduled Provider: Location:[facility] Appointment Type:CV OV Appointment Date:10/22/2023 08:00:00 AM Scheduled Provider: Location:[facility] Appointment Type:Echo - Echocardiogram Adult Appointment Date:12/10/2023 08:00:00 AM Scheduled Provider: Location:[facility] Appointment Type:PC Nurse Lab Appointment Date:12/14/2023 08:00:00 AM Scheduled Provider:CHI DURAN APRN [facility] Location:[facility] Appointment Type:PC OV Follow Up Future Scheduled Tests Laboratory* Prostate Specific Antigen 11/24/23 * A1C Hemoglobin 11/24/23 * Complete Blood Count 11/24/23 * Lipid Profile 11/24/23 * Albumin/Creatinine Ratio, Random Urine 05/26/23 * Albumin/Creatinine Ratio, Random Urine 11/24/23 * Microalbumin Level Urine 11/27/22 * PTH, Intact 11/24/23 * Vitamin D Level 11/24/23 * Complete Metabolic Panel 11/24/23 * B. pertussis and parapertussis by SHELLIE 01/06/23 Radiology* XR Chest 2 Views (PA & Lateral) 01/06/23 [facility] Evaluation + Plan note Future Appointments Appointment Date:12/10/2023 08:00:00 AM Scheduled Provider: Location:[facility] Appointment Type:PC Nurse Lab Appointment Date:12/14/2023 08:00:00 AM Scheduled Provider:CHI DURAN APRN, CNP Location:[facility] Appointment Type:PC OV Follow Up Appointment Date:05/02/2024 01:00:00 PM Scheduled Provider: Location:[facility] Appointment Type:CV OV Future Scheduled Tests Laboratory* Prostate Specific Antigen 11/24/23 * A1C Hemoglobin 11/24/23 * Complete Blood Count 11/24/23 * Lipid Profile 11/24/23 * Albumin/Creatinine Ratio, Random Urine 05/26/23 * Albumin/Creatinine Ratio, Random Urine 11/24/23 * Microalbumin Level Urine 11/27/22 * PTH, Intact 11/24/23 * Vitamin D Level 11/24/23 * Complete Metabolic Panel 11/24/23 * B. pertussis and parapertussis by SHELLIE 01/06/23 Radiology* XR Chest 2 Views (PA & Lateral) 01/06/23 [facility] Evaluation + Plan note Future Appointments Appointment Date:05/02/2024 01:00:00 PM Scheduled Provider: Location:[facility] Appointment Type:CV OV Appointment Date:06/09/2024 08:15:00 AM Scheduled Provider: Location:[facility] Appointment Type:PC Nurse Lab Appointment Date:06/27/2024 08:00:00 AM Scheduled Provider:CHI DURAN APRN, CNP Location:[facility] Appointment Type:PC OV Future Scheduled Tests Laboratory* PSA Total+% Free 06/14/24 * PSA Total+% Free 06/14/24 * A1C Hemoglobin 06/14/24 * A1C Hemoglobin 06/14/24 * Complete Blood Count 06/14/24 * Complete Blood Count 06/14/24 * Lipid Profile 06/14/24 * Lipid Profile 06/14/24 * Albumin/Creatinine Ratio, Random Urine 05/26/23 * Albumin/Creatinine Ratio, Random Urine 06/14/24 * Albumin/Creatinine Ratio, Random Urine 06/14/24 * Microalbumin Level Urine 11/27/22 * PTH, Intact 06/14/24 * PTH, Intact 06/14/24 * Vitamin D Level 06/14/24 * Vitamin D Level 06/14/24 * Complete Metabolic Panel 06/14/24 * Complete Metabolic Panel 06/14/24 * B. pertussis and parapertussis by SHELLIE 01/06/23 Radiology* XR Chest 2 Views (PA & Lateral) 01/06/23 [facility] Evaluation + Plan note Future Appointments Appointment Date:05/02/2024 01:00:00 PM Scheduled Provider: Location:[facility] Appointment Type:CV OV Appointment Date:06/09/2024 08:15:00 AM Scheduled Provider: Location:[facility] Appointment Type:PC Nurse Lab Appointment Date:06/27/2024 08:00:00 AM Scheduled Provider:CHI DURAN APRN, CNP Location:[employer] [facility] Appointment Type:PC OV Future Scheduled Tests Laboratory* PSA Total+% Free 06/14/24 * PSA Total+% Free 06/14/24 * A1C Hemoglobin 06/14/24 * A1C Hemoglobin 06/14/24 * Complete Blood Count 06/14/24 * Complete Blood Count 06/14/24 * Lipid Profile 06/14/24 * Lipid Profile 06/14/24 * Albumin/Creatinine Ratio, Random Urine 05/26/23 * Albumin/Creatinine Ratio, Random Urine 06/14/24 * Albumin/Creatinine Ratio, Random Urine 06/14/24 * PTH, Intact 06/14/24 * PTH, Intact 06/14/24 * Vitamin D Level 06/14/24 * Vitamin D Level 06/14/24 * Complete Metabolic Panel 06/14/24 * Complete Metabolic Panel 06/14/24 [facility] Evaluation + Plan note Future Appointments Appointment Date:06/27/2024 08:00:00 AM Scheduled Provider:CHI DURAN APRN, CNP Location:[employer] [facility] Appointment Type:PC OV Appointment Date:07/04/2024 01:30:00 PM Scheduled Provider:TIFFANIE JAIN Location:[facility] Appointment Type:CV OV Future Scheduled Tests Laboratory* PSA Total+% Free 06/14/24 * A1C Hemoglobin 06/14/24 * Complete Blood Count 06/14/24 * Lipid Profile 06/14/24 * Albumin/Creatinine Ratio, Random Urine 05/26/23 * Albumin/Creatinine Ratio, Random Urine 06/14/24 * Albumin/Creatinine Ratio, Random Urine 06/14/24 * PTH, Intact 06/14/24 * Vitamin D Level 06/14/24 * Complete Metabolic Panel 06/14/24 [facility] Evaluation + Plan note Future Appointments Appointment Date:07/04/2024 01:30:00 PM Scheduled Provider:TIFFANIE JAIN Location:[facility] Appointment Type:CV OV Future Scheduled Tests Laboratory* PSA Total+% Free 06/14/24 * Magnesium Level 12/25/24 * Prostate Specific Antigen 12/25/24 * A1C Hemoglobin 06/14/24 * A1C Hemoglobin 12/25/24 * Complete Blood Count 06/14/24 * Complete Blood Count 12/25/24 * Lipid Profile 06/14/24 * Lipid Profile 12/25/24 * Albumin/Creatinine Ratio, Random Urine 06/14/24 * Albumin/Creatinine Ratio, Random Urine 06/14/24 * Albumin/Creatinine Ratio, Random Urine 12/25/24 * PTH, Intact 06/14/24 * PTH, Intact 12/25/24 * Vitamin D Level 06/14/24 * Vitamin D Level 12/25/24 * Complete Metabolic Panel 06/14/24 * Complete Metabolic Panel 12/25/24 [facility] Evaluation + Plan note Future Appointments Appointment Date:04/06/2025 08:30:00 AM Scheduled Provider:TIFFANIE JAIN Location:[facility] Appointment Type:CV OV Future Scheduled Tests Laboratory* PSA Total+% Free 06/14/24 * Magnesium Level 12/25/24 * Prostate Specific Antigen 12/25/24 * A1C Hemoglobin 06/14/24 * A1C Hemoglobin 12/25/24 * Complete Blood Count 06/14/24 * Complete Blood Count 12/25/24 * Lipid Profile 06/14/24 * Lipid Profile 12/25/24 * Albumin/Creatinine Ratio, Random Urine 06/14/24 * Albumin/Creatinine Ratio, Random Urine 06/14/24 * Albumin/Creatinine Ratio, Random Urine 12/25/24 * PTH, Intact 06/14/24 * PTH, Intact 12/25/24 * Vitamin D Level 06/14/24 * Vitamin D Level 12/25/24 * Complete Metabolic Panel 06/14/24 * Complete Metabolic Panel 12/25/24 [facility] Evaluation + Plan note Future Appointments Appointment Date:04/06/2025 08:30:00 AM Scheduled Provider:TIFFANIE JAIN Location:[facility] Appointment Type:CV OV Future Scheduled Tests Laboratory* PSA Total+% Free 06/14/24 * Amylase Level 10/17/24 * C-Reactive Protein 10/17/24 * Lipase Level 10/17/24 * Magnesium Level 12/25/24 * Prostate Specific Antigen 12/25/24 * A1C Hemoglobin 06/14/24 * A1C Hemoglobin 12/25/24 * Complete Blood Count 10/17/24 * Complete Blood Count 06/14/24 * Complete Blood Count 12/25/24 * Lipid Profile 06/14/24 * Lipid Profile 12/25/24 * Albumin/Creatinine Ratio, Random Urine 06/14/24 * Albumin/Creatinine Ratio, Random Urine 06/14/24 * Albumin/Creatinine Ratio, Random Urine 12/25/24 * PTH, Intact 06/14/24 * PTH, Intact 12/25/24 * Vitamin D Level 06/14/24 * Vitamin D Level 12/25/24 * Complete Metabolic Panel 10/17/24 * Complete Metabolic Panel 06/14/24 * Complete Metabolic Panel 12/25/24 [facility] Evaluation + Plan note Future Appointments Appointment Date:04/06/2025 08:30:00 AM Scheduled Provider:TIFFANIE JAIN Location:[facility] Appointment Type:CV OV Future Scheduled Tests Laboratory* PSA Total+% Free 06/14/24 * Amylase Level 10/17/24 * C-Reactive Protein 10/17/24 * Lipase Level 10/17/24 * A1C Hemoglobin 06/14/24 * Complete Blood Count 10/17/24 * Complete Blood Count 06/14/24 * Lipid Profile 06/14/24 * Albumin/Creatinine Ratio, Random Urine 06/14/24 * Albumin/Creatinine Ratio, Random Urine 06/14/24 * Albumin/Creatinine Ratio, Random Urine 12/25/24 * PTH, Intact 06/14/24 * Vitamin D Level 06/14/24 * Complete Metabolic Panel 10/17/24 * Complete Metabolic Panel 06/14/24 [facility] Evaluation noteNo assessment information available [facility] Work Phone: Hospital course Narrative No data available for this section [facility] Hospital Discharge instructions No data available for this section [facility] Progress note No data available for this section [facility] Advance Directives No Advanced Directives Records Found Advance Directive Response Recorded Date/ Time Living Will No March 05, 2014 7:28pm Power of Engineering Equipment Operator No February 7:28pm Summary Purpose Family History No Family History Records Found No data available for this section No data available for this section No data available for this section No data available for this section No data available for this section No data available for this section No data available for this section No data available for this section No data available for this section No data available for this section No Family History Records Found No data available for this section No data available for this section No data available for this section No data available for this section No data available for this section No data available for this section No data available for this section No Family History Records Found Additional Source Comments Care Team (unrecognized sect ion and content) Care Team Personnel Name: ABISAI JAIN MD Position: P4 Physician - Cardiology Member Role: Technical Applications Scientist Address: Address: [address] [place] [address] [place] [address]- Name: CHI DURAN PHARMACEUTICAL REPRESENTATIVE - DRIP BOX TENDER Position: P4 Advanced Practice Nurse Member Role: Primary Care Physician Address: Address: [address] [place] [address] [place] [address]- [place] Care Team Related Persons Name: DAPHNIE BROWN Name: JR WOLFE Name: URIEL SALAS Address: [address] [place], [place] [id number] [place] Care Teams (unrecognized sec tion and content) Team Status: Active Member Role Status Dates Chi Duran Family Provider Active Chi Duran UI UX ENGINEER, UI UX ENGINEER-C Primary Care Provider Active Team Status: Inactive Member Role Status Dates Chi Duran UI UX ENGINEER, UI UX ENGINEER-C Primary Care Provider Active Dr. Gregorio Neal MD Attending Provider Active Goals (unrecognized section and content) Goals may be documented in a n alternate section (unrecognized sect ion and content) No Status Records FoundNo Status Records FoundNo Status Records Found INFORMATION SOURCE (unrecogn ized section and content) DATE CREATED AUTHOR 08/14/2022 [facility] DATE CREATED AUTHOR AUTHOR'S ORGANIZ ATION 02/24/2024 [facility] ([place]) DATE CREATED AUTHOR AUTHOR'S ORGANIZ ATION 11/08/2024 [facility] FOR RECORDS PERTAINING TO PATIENTS WHO ARE OR HAVE BEEN ENROLLED IN A CHEMICAL DEPENDENCY/SUBSTANCEABUSE PROGRAM, SOME INFORMATION MAY BE OMITTED. This clinical summary was aggregated from multiple sources. Caution should be exercised in using it in the provision of clinical care. This summary normalizes information from multiple sources, and as a consequence, information in this document may materially change the coding, format and clinical context of patient data. In addition, data may be omitted in some cases. CLINICAL DECISIONS SHOULD BE BASED ON THE PRIMARY CLINICAL RECORDS. [employer] [facility]. provides no warranty or guarantee of the accuracy or completeness of information in this document.
--- NOTE | 2024-11-26 20:54 | EKG12_ITS ---
Test Reason : STROKE Blood Pressure : */* mmHG Vent. Rate : 69 BPM Atrial Rate : 69 BPM P-R Int : 198 ms QRS Dur : 112 ms QT Int : 420 ms P-R-T Axes : 7 27 89 degrees QTcB Int : 450 ms Sinus rhythm with frequent Premature ventricular complexes Lateral infarct (cited on or before 30-Apr-2012) Abnormal ECG Confirmed by Miguel Ellis ([id number]), news videotape editor BLANKA SERRANO ([id number]) on 11/28/2024 9:35:13 AM Referred By: Confirmed By: Miguel Ellis
--- NOTE | 2024-11-26 20:54 | CT_ITS ---
EXAM: STROKE BRAIN/HEAD WITHOUT CONT CLINICAL HISTORY: 79 y/o M with NEURO DEFICIT, ACUTE, STROKE SUSPECTED. Left arm weakness. COMPARISON: None. TECHNIQUE: Routine CT imaging of the head without IV contrast. Additional multiplanar reformats were obtained. Dose reduction techniques were used including intermediate exposure control (AEC),iterative reconstruction technique, and/or mA and/or KV dose adjustments based on patient's size. FINDINGS: Mild generalized cerebral volume loss with concordant prominence of the ventricles and subarachnoid spaces. Small, chronic ischemic infarct within the right posterior parieto-occipital watershed area. Mild patchy supratentorial white matter hypodensities. The gotti-white matter interfaces are otherwise maintained. No acute intracranial hemorrhage or herniation. Prior ocular lens replacements. The visualized paranasal sinuses and mastoids are unremarkable. No calvarial fracture or scalp hematoma. CT/STROKE Brain/Head without Cont IMPRESSION: No acute intracranial finding. Reading Location: [id number]
--- NOTE | 2024-11-26 20:54 | CT_ITS ---
PROCEDURE: STROKE CTA HEAD AND NECK W/CON 11/26/2024 REASON FOR EXAM: NEURO DEFICIT, ACUTE, STROKE SUSPECTED TECHNIQUE: CTA imaging of the head and neck from the aortic arch to the skull vertex with intravenous contrast. Coronal and Sagittal reconstruction series were provided. 3D, 3D post processing, 3D reconstructions, Maximum intensity projection (MIPs) Volume rendering and Shaded surface rendering was provided. CONTRAST: Isovue 370 VOLUME: 100mL One or more dose reduction techniques were used (e.g., Automated exposure control, adjustment of the mA and/or kV according to patient size, use of iterative reconstruction technique). RADIATION DOSE SUMMARY: CTDlvol: 40 mGy DLP: 710 mGycm COMPARISON: Same-day CT head FINDINGS: See same day CT head for discussion of nonvascular findings. CTA neck: Two-vessel aortic arch. Mild plaque of the aortic arch vessels and origins of the bilateral vertebral arteries without focal stenosis or narrowing. Calcific plaque of the V1 and V2 segments of the right vertebral artery without significant stenosis. The left vertebral artery is widely patent. Calcific plaque of the bilateral cervical carotid arteries without hemodynamically significant narrowing by NASCET criteria. CTA head: Calcific plaque of the bilateral carotid siphons without focal stenosis. The bilateral anterior, middle and posterior cerebral arteries are widely patent. No aneurysm or AVM. Major venous structures: Unremarkable. Other findings: Cervical spondylosis. Prior median sternotomy. CT/STROKE CTA Head AND Neck W/Con IMPRESSION: 1. No large vessel occlusion, aneurysm or AVM. 2. Mild scattered calcific plaque as described. Dr. Diaz discussed these findings via telephone with Dr. Estrada at 9:30 p.m . on 11/26/2024. Reading Location: [facility]
[2024-11-26 20:59] LABS: Absolute Lymphocyte Count 1.41 X10^3/uL (0.83-4.51); Basophil# 0.01 X10^3/uL; Basophil% 0.2 % (0-1); Eosinophil# 0.15 X10^3/uL; Eosinophils% 2.4 % (0-5); Hematocrit 34.6 % (40-54); Lymphocyte # 1.41 X10^3/ul (0.83-4.51); Lymphocyte % 22.9 % (19-41); Mean Corp Hgb Conc 34.7 g/dL (32-36); Mean Corpuscular Volume 100.9 fL (80-94); Mean Platelet Vol. 8.7 fl (6.2-12.0); Monocyte# 0.57 X10^3/uL; Monocyte% 9.3 % (0-10); NRBC Flagged by Analyzer 0 % (0-5); Neutrophil % 64.9 % (47-70); Platelet Count 159 K/mm3 (150-450); RBC Distribution Width CV 14.2 % (11.6-14.6); RBC Distribution Width SD 52.6 fl (35.1-43.9); Red Blood Count 3.43 M/mm3 (4.6-6.2); White Blood Count 6.2 K/mm3 (4.4-11.0)
[2024-11-26 21:05] LABS: Prothrombin Time (Protime)PT. 13.8 SECONDS (11.7-14.9)
[2024-11-26 21:06] LABS: Partial Thromboplast Time 26.8 Seconds (24.1-36.2)
[2024-11-26 21:15] LABS: Bedside Glucose 97 mg/dL (74-106)
--- NOTE | 2024-11-26 21:25 | RAD_ITS ---
PROCEDURE: CHEST 1 VIEW (PORTABLE) 11/26/2024 REASON FOR EXAM: CVA TECHNIQUE: Frontal view of the chest. COMPARISON: None. FINDINGS: Hardware: Prior median sternotomy and CABG. Heart: The heart size is normal. Lungs: Low lung volumes. No focal consolidation, pleural effusion or pneumothorax. Bones: Degenerative changes are identified within the thoracic spine. RAD/Chest 1 View (Portable) IMPRESSION: No Acute Findings. Reading Location: [id number]
[2024-11-26 21:35] LABS: Anion Gap 12 (5-15); BUN 33 mg/dL (4-19); BUN/Creat Ratio 14.7 RATIO (10-20); Calcium,Total 9.7 mg/dL (7.6-11.0); Carbon Dioxide 23.4 mmol/L (21.0-32.0); Chloride 103 mmol/L (98-108); Creatinine, Serum 2.24 mg/dL (0.70-1.20); EST Glomerular Filtration Rate 29 (>60); Estimated Creatinine Clearance 33.36 ml/min (50-250); Glucose 96 mg/dL (70-99); Potassium 4.1 mmol/L (3.3-5.1); Sodium Level 138 mmol/L (133-145); Troponin T High Sensitivity 35 ng/L (<=22)
[2024-11-26] MEDS: Aspirin 325 MG Tablet PO (21:39)
[2024-11-26] MEDS: Clopidogrel Bisulfate 300 MG Tablet PO (21:39)
--- NOTE | 2024-11-26 21:49 | HP.PCM.HOS_ITS ---
HPI - General General Date of Admission: 11/26/24 Date of Service: 11/26/24 Chief Complaint: LUE weakness. HPI Narrative The patient is a 79 y/o M w/ PMHx: CKD, Chronic macrocytic anemia, Valvular heart disease, CAD s/p CABG x 5 remotely 2010 at [place], HTN, HLD, OA, BPH with obstructive pathology who presents to the [facility] ED on 11/26/24 with history of onset at approximately 8:30 PM on day of presentation left upper extremity weakness prompting immediate transition to the ED for evaluation. Initial ED physician NIH stroke scale assessment 2 for left upper extremity ataxia and mild weakness. Family and patient do report that he has been having for the last several weeks episodes of lightheadedness and has frequently checked his blood pressure when this is occurred and noted that it has been low. He recently decreased his metoprolol and 3 days prior to current presentation stopped his ramipril and has had some improvement. He does have a follow-up with ENT as he was not sure why he was having this. Workup in the ED included T97.2, heart rate 75, BP 144/70, respiratory rate 18, 95% on room air, CBC with WBC 6.2, hemoglobin 12, MCV 100.9, platelet 159 without marked shift, unremarkable coags, BMP with BUN/creat 33/2.24, GFR 29 otherwise not marked appearing, troponin 35, CT of the brain with no acute intracranial findings, CTA head and neck no large vessel occlusion, aneurysm or AVM with mild scattered calcific plaque, chest x-ray with no acute cardiopulmonary findings, EKG with sinus rhythm with PVC with no acute evidence of ischemia. Stroke alert was initiated and recommendation to forego TNK given decreased NIH stroke scale low score however neurologist did recommend loading patient with aspirin and Plavix with admission for further CVA/TIA evaluation. Per Neurologist repeat NIHSS patient improved to 0. In the ED per neurology recommendations noted patient administered full-strength aspirin therapy and Plavix 70 mg p.o. x 1. ON LICENSE OF [facility] Medical History CKD (chronic kidney disease) BPH (benign prostatic hyperplasia) Chronic anemia HLD (hyperlipidemia) HTN (hypertension) Valvular heart disease CAD (coronary artery disease) Home Medications ?Medication ?Instructions ?Recorded ?Last Taken ?Type aspirin 81 mg capsule 81 mg PO DAILY 11/26/24 Unkn own History cholecalciferol (vitamin D3) 25 1,000 unit PO QDAY 01/13 Unknown History mcg (1,000 unit) capsule (Vitamin D3) finasteride 5 mg tablet 5 mg PO DAILY 11/26/24 Unkno wn History metoprolol succinate 25 mg 12.5 mg PO DAILY 11/26/24 U nknown History tablet,extended release 24 hr rosuvastatin 40 mg tablet 40 mg PO DAILY 11/26/24 Unkn own History tamsulosin 0.4 mg capsule 0.4 mg PO DAILY 11/26/24 Unk nown History Allergy/AdvReac Type Severity Reaction Status Date / Time No Known Allergies Allergy Verified 11/26/24 20:48 Family History Mother , while attempting CABG x 4. CAD (coronary artery disease) Hypertension Heart disease Myocardial infarction Other Prostate cancer Surgical History History of tonsillectomy and adenoidectomy Hx of aortic valve replacement Hx of bilateral hip replacements History of bilateral knee replacement Hx of coronary artery bypass surgery Social History household members: spouse Smoking Status: Never smoker alcohol intake: never substance use type: does not use ROS ROS Narrative Admission Review of Systems: CONSTITUTIONAL: No weight loss, fever, chills, + weakness or fatigue. HEENT: + Lightheadedness, near syncope. Eyes: No visual loss, blurred vision, double vision or yellow sclerae. Ears, Nose, Throat: No hearing loss, sneezing, congestion, runny nose or sore throat. SKIN: No rash or itching, lesions, wounds. CARDIOVASCULAR: + Lightheadedness, near syncope. No chest pain, chest pressure or chest discomfort, palpitations, edema, orthopnea. RESPIRATORY: No shortness of breath, cough or sputum, wheezing, hemoptysis. GASTROINTESTINAL: No anorexia, nausea, vomiting or diarrhea, abdominal pain, melena, BRBPR. GENITOURINARY: No dysuria, frequency, urgency or retention. NEUROLOGICAL: + Left upper extremity weakness, lightheadedness/near syncope. No headache, paralysis, change in bowel or bladder control, seizure. MUSCULOSKELETAL: No muscle, back pain, joint pain or stiffness. HEMATOLOGIC: + Chronic anemia, easy bleeding/bruising. LYMPHATICS: No enlarged nodes. No history of splenectomy. PSYCHIATRIC: No history of depression or anxiety. ENDOCRINOLOGIC: No reports of sweating, cold or heat intolerance. No polyuria or polydipsia. ALLERGIES: No history of asthma, hives, eczema or rhinitis. Vital Signs Vital Signs Vital Signs: 11/26/24 20:49 11/26/24 20:51 11/26/24 21:00 Temperature 97.2 F L Temperature Source Temporal Pulse Rate 72 75 Respiratory Rate 16 18 Blood Pressure 144/70 H 144/70 H Blood Pressure Mean 94 94 Pulse Ox 94 95 98 Oxygen Delivery Method Room Air Room Air Room Air 11/26/24 21:05 11/26/24 21:30 Temperature Temperature Source Pulse Rate 65 83 Respiratory Rate 18 18 Blood Pressure 140/91 H 126/83 H Blood Pressure Mean 107 97 Pulse Ox 99 98 Oxygen Delivery Method Room Air Room Air Weight Weight: 214 lb 1.102 oz Body Mass Index (BMI) 28.2 Physical Exam Narrative Physical Examination: General: Awake, alert, oriented x 3 and cooperative, seated upright in the ED bed, no acute distress, notes left upper extremity feels much improved But still not exactly at his baseline. Skin: Normal color, normal turgor, no icterus, no cyanosis except occasional stage ecchymoses, abrasion HEENT: AT/NC, EOMI, PERRLA, MMM, no carotid bruits or JVD noted. Lungs: Mildly diminished, greater bases, proper effort no rales, ronchi or wheezing. Heart: Regular rate and rhythm; no gallop, rub audible, + SM. Abdomen: Soft, NTTP, ND, mildly hyperactive BS, no HSM. Extremities: No cyanosis, clubbing, or edema. 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 Psychiatric: Affect appears normal, very interactive, no acute evidence of depressive or anxiety feelings. Results Lab / Micro Data 11/26/24 20:50 11/26/24 20:50 Labs: Laboratory Results - last 24 hr 11/26/24 20:49: POC Glucose 97 11/26/24 20:50: WBC 6.2, RBC 3.43 L, Hgb 12.0 L, Hct 34.6 L, MCV 100.9 H, MCH 35.0 H, MCHC 34.7, RDW Std Deviation 52.6 H, RDW Coeff of Michelle 14.2, Plt Count 159, MPV 8.7, Immature Gran % (Auto) 0.300, Neut % (Auto) 64.9, Lymph % (Auto) 22.9, [place] % (Auto) 9.3, Eos % (Auto) 2.4, Baso % (Auto) 0.2, Absolute Neuts (auto) 4.0, Absolute Lymphs (auto) 1.41, Nucleated RBC % 0, PT 13.8, INR 1.0, APTT 26.8, Sodium 138, Potassium 4.1, Chloride 103, Carbon Dioxide 23.4, Anion Gap 12, BUN 33 H, Creatinine 2.24 H, Estim Creat Clear Calc 33.36 L, Est GFR (MDRD) Non-Af 29 L, BUN/Creatinine Ratio 14.7, Glucose 96, Calcium 9.7, Troponin T High Sens 35 H Imaging Radiology Impression Brain CT 11/26/24 20:54 IMPRESSION: No acute intracranial finding. Reading Location: [facility] Head/Neck CTA 11/26/24 20:54 IMPRESSION: 1. No large vessel occlusion, aneurysm or AVM. 2. Mild scattered calcific plaque as described. Dr. Diaz discussed these findings via telephone with Dr. Estrada at 9:30 p.m. on 11/26/2024. Reading Location: [facility] Chest X-Ray 11/26/24 21:25 IMPRESSION: No Acute Findings. Reading Location: [facility] Assessment & Plan Assessment/Plan (1) LUE weakness: PLAN: Plan The patient is a 79 y/o M w/ PMHx: CKD, Chronic macrocytic anemia, Valvular heart disease, CAD s/p CABG x 5 remotely 2009 at [place], HTN, HLD, OA, BPH with obstructive pathology who presents to the [facility] ED on 11/26/24 with history of onset at approximately 8:30 PM on day of presentation left upper extremity weakness prompting immediate transition to the ED for evaluation. Initial ED physician NIH stroke scale assessment 2 for left upper extremity ataxia and mild weakness. #1. Left upper extremity weakness concerning for TIA/CVA: Will admit to PCU, will obtain MRI Brain, ECHO, PT/OT/Speech/Nutrition evaluation per protocol. Will allow permissive HTN, in the ED patient was loaded with aspirin and Plavix, will continue baby aspirin and low-dose Plavix starting 11/27/2024, statin w/ AM FLP, fall precautions. Mag, TSH, FLP, HgbA1c requested. Maintain on fall and aspiration precautions. Will continue neurology consultation. #2. CAD with indeterminate cardiac enzyme, possibly mildly elevated especially given underlying renal disease with recently reported lightheadedness/dizziness with intermittent hypotension, suspect orthostasis: Status post CABG x 5 remotely in 2009 at [place], will continue aspirin, statin, temporarily holding metoprolol and lisinopril given need for permissive hypertension as noted above #1, add back once clinically appropriate. Current presentation with troponin 35, EKG with sinus rhythm with PVC with no acute evidence of ischemia, will maintain on telemetry, magnesium level requested, FLP in AM, obtain orthostatics, temporarily holding hypertensive regimen as noted for permissive hypertension but once added back may need to assure vital signs stay appropriate with positional changes, echo requested as noted. Recommended also that patient and family notify his final tester Dr. Arechiga of these recent medication changes that he has made in his symptoms. #3. Possible Chronic Kidney Disease Stage IV, unclear as no recent labs, prior was more consistent with stage II but remote labs versus possible GUMARO versus acute renal insufficiency/elevated creatinine, uncertain: Admission BUN/Cr 33/2.24, GFR 29, baseline renal function 1.0-1.3 however these labs are remote from 2011, but from discussion with family suspect likely at least CKD stage III if not stage IV and he does follow with nephrology. Will repeat BMP in AM to further elucidate current baseline. #4. Valvular heart disease: Status post AVR, no noted echocardiogram in the system, pending as noted above. #5. Hypertension: Will temporally hold home regimen of metoprolol for permissive hypertension, as needed agents per stroke protocol, add back oral regimen once clinically appropriate. From prior records had been on ACEI also, clarifying. #6. Hyperlipidemia: Continue home statin regimen. AM FLP. #7. Chronic macrocytic anemia: Admission hemoglobin 12, MCV 100.9, baseline hemoglobin noted remotely to very, most recently however 02/04/2016 hemoglobin at that time 14 with no recent labs for comparison, will repeat CBC in a.m. to further elucidate current baseline. #8. BPH with obstructive pathology: Will continue patient home finasteride and Flomax regimen, will continue to monitor for urinary retention. #9. DVT prophylaxis: Lovenox. #10. CODE status: Patient HCPOA is who is present and living will is in place family believes. Discussed CODE status at length including difference between FULL code, DNR-CCA and DNR-CC status. Following discussions about the differences in these status, requested Full Code status. Charges/Coding Visit Charges Inpatient E&M: 42100 Init Hosp L3
--- OUTSIDE RECORDS SUMMARY | 2024-11-26 22:09 | XMS RPT_ITS | CCD ---
Author Organization [facility] Inform ion [facility] Care Team Providers Care Acupressurist Name Role Phone ROGER SOCIAL MEDIA MARKETING SPECIALIST - HEAD COOK, CHI Wright Primary Care Phys ician Roger WATER FILTER CLEANER, Chi Bro Primary Care Unav Gregorio Mckeon Attending Unavailable ROGER SOCIAL MEDIA MARKETING SPECIALIST - HEAD COOK, CHI Wright Primary Care U navailable SIMMONS SOCIAL MEDIA MARKETING SPECIALIST-HEAD COOK, SIMI Attending Unavail able GARY CUELLAR, SHRAVAN Consulting Unavailable TAMMY CUELLAR, ABISAI Tran Attending Unavailable ROGER SOCIAL MEDIA MARKETING SPECIALIST - HEAD COOK, CHI Wright Primary Care U navailable SIMMONS SOCIAL MEDIA MARKETING SPECIALIST-HEAD COOK, SIMI Attending Unavail able ROGER SOCIAL MEDIA MARKETING SPECIALIST - HEAD COOK, CHI Wright Primary Care U navailable ROGER SOCIAL MEDIA MARKETING SPECIALIST - HEAD COOK, CHI Wright Primary Care U navailable SIMMONS SOCIAL MEDIA MARKETING SPECIALIST-HEAD COOK, SIMI Attending Unavail able KESHA CUELLAR, RUBIO Admitting Unavailable KESHA CUELLAR, RUBIO Attending Unavailable ROGER SOCIAL MEDIA MARKETING SPECIALIST - HEAD COOK, CHI Wright Primary Care U shad BETH MD, DR GUARDADO Admitting Unavailab gregory BETH MD, DR GUARDADO Attending Unavailab le ROGER SOCIAL MEDIA MARKETING SPECIALIST - HEAD COOK, CHI Wright Primary Care U navailable ROGER SOCIAL MEDIA MARKETING SPECIALIST - HEAD COOK, CHI Wright Primary Care U navailable ROGER SOCIAL MEDIA MARKETING SPECIALIST - HEAD COOK, CHI Wright Attending U navailable ROGER SOCIAL MEDIA MARKETING SPECIALIST - HEAD COOK, CHI Wright Primary Care U navailable SIMMONS SOCIAL MEDIA MARKETING SPECIALIST-HEAD COOK, SIMI Attending Unavail able ROGER SOCIAL MEDIA MARKETING SPECIALIST - HEAD COOK, CHI Wright Primary Care U navailable SIMMONS SOCIAL MEDIA MARKETING SPECIALIST-HEAD COOK, SIMI Attending Unavail able ROGER SOCIAL MEDIA MARKETING SPECIALIST - HEAD COOK, CHI Wright Primary Care U navailable SIMMONS SOCIAL MEDIA MARKETING SPECIALIST-HEAD COOK, SIMI Attending Unavail able ROGER SOCIAL MEDIA MARKETING SPECIALIST - HEAD COOK, CHI Wright Primary Care U navailable SIMMONS SOCIAL MEDIA MARKETING SPECIALIST-HEAD COOK, SIMI Attending Unavail able ROGER SOCIAL MEDIA MARKETING SPECIALIST - HEAD COOK, CHI Wright Primary Care U shad REBOLLEDO MD, RUBIO Attending Unavailable ROGER SOCIAL MEDIA MARKETING SPECIALIST - HEAD COOK, CHI Wright Primary Care U navailable ROGER SOCIAL MEDIA MARKETING SPECIALIST - HEAD COOK, CHI Wright Attending U shad NEAL MD, DR GREGORIO CARPENTER Attending Shayna nieto ROGER SOCIAL MEDIA MARKETING SPECIALIST - HEAD COOK, CHI Wright Primary Care U navailable ROGER SOCIAL MEDIA MARKETING SPECIALIST - HEAD COOK, CHI Wright Primary Care U navailable ROGER SOCIAL MEDIA MARKETING SPECIALIST - HEAD COOK, CHI Wright Attending U navailable ROGER SOCIAL MEDIA MARKETING SPECIALIST - HEAD COOK, CHI Wright Attending U navailable ROGER SOCIAL MEDIA MARKETING SPECIALIST - HEAD COOK, CHI Wright Primary Care U navailable ROGER SOCIAL MEDIA MARKETING SPECIALIST - HEAD COOK, CHI Wright Primary Care U navailable GREGORIO NEAL Attending Unavailable ROGER SOCIAL MEDIA MARKETING SPECIALIST - HEAD COOK, CHI Wright Primary Care U navailable DEJAN CUELLAR, TANYA Attending Unavailable ROGER SOCIAL MEDIA MARKETING SPECIALIST - HEAD COOK, CHI Wright Primary Care U navailable ROGER SOCIAL MEDIA MARKETING SPECIALIST - HEAD COOK, CHI Wright Attending U navailable ROGER SOCIAL MEDIA MARKETING SPECIALIST - HEAD COOK, CHI Wright Primary Care U navailable ROGER SOCIAL MEDIA MARKETING SPECIALIST - HEAD COOK, CHI Wright Attending U navailable DERICK AMOR Attending Unavailable ROGER SOCIAL MEDIA MARKETING SPECIALIST - HEAD COOK, CHI Wright Primary Care U navailable ÁNGEL, GREGORIO Attending Unavailable ROGER SOCIAL MEDIA MARKETING SPECIALIST - HEAD COOK, CHI Wright Primary Care U navailable Medications [...] tab(s), 0 Refill(s), 01/03/23 13:30:00 EDT, Pharmacy: [facility]/pharmacy #[id number], 181, cm, 12/29/22 12:59:00 EDT, [...] qDay, # 90 tab(s), 3 Refill(s), Pharmacy: [facility]/pharmacy #[id number], 185, cm, 12/14/23 8:06:00 EDT, Height, kg, 12/14/23 8:06:00 EDT, Dosing Weight Start Date: 12/28/23 Status: Ordered Quantity: 90.0 Unit: tab(s) Repeat number: 4 Start: 09-28-2023 Plavix 75 mg o ral tablet Dose : 75 mg = 1 tab(s), Oral, qDay, # 90 tab(s), 0 Refill(s), [id number], 185, cm, 09/07/23 10:31:00 EDT, Height, kg, 09/07/23 10:31:00 EDT, Dosing Weight Start Date: 09/28/23 Status: Ordered Start: 07-01-2023 Plavix 75 mg o ral tablet Dose : 75 mg = 1 tab(s), Oral, qDay, # 90 tab(s), 0 Refill(s), [id number], 185.4, cm, 06/30/23 9:23:00 EST, Height, kg, 06/30/23 9:23:00 EST, Dosing Weight Start Date: 07/01/23 Status: Ordered famotidine 20 mg oral tablet (3 sources) Histamine-2 Receptor Antagonist Start: 08-21-2021 Pepcid 20 mg oral tablet Dose : 20 mg = 1 tab(s), Oral, qDay, # 30 tab(s), 0 Refill(s), [id number], 182, cm, 08/20/21 15:11:00 EST, Height, kg, 08/20/21 15:11:00 EST, Dosing Weight Start Date: 08/21/21 Status: Ordered finasteride 5 mg oral tablet (20 sources) 5-alpha Reductase Inhibitor Start: 06-27-2024 Proscar 5 mg oral tablet Dose : 5 mg = 1 tab(s), Oral, qDay, PSA elevation, # 100 tab(s), 1 Refill(s), Pharmacy: [facility]/pharmacy #[id number], PSA elevation, 180, cm, 06/27/24 8:03:00 EST, Height, kg, 06/27/24 8:03:00 EST, Dosing Weight Start Date: 06/27/24 Status: Ordered Quantity: 100.0 Unit: tab(s) Repeat number: 2 Indications: Elevated prostate specific antigen [PSA]; Start: 12-14-2023 Proscar 5 mg o ral tablet Dose : 5 mg = 1 tab(s), Oral, qDay, PSA elevation, # 100 tab(s), 1 Refill(s), [id number], PSA elevation, 185, cm, 12/14/23 8:06:00 EDT, Height, kg, 12/14/23 8:06:00 EDT, Dosing Weight Start Date: 12/14/23 Status: Ordered Quantity: 100.0 Unit: tab(s) Repeat number: 2 Indication: Elevated prostate specific antigen [PSA] Start: 05-25-2023 End: 11-21-2023 Proscar 5 mg oral tablet Dos e : 5 mg = 1 tab(s), Oral, qDay, PSA elevation, # 100 tab(s), 1 Refill(s), [id number], PSA elevation, 185, cm, 09/07/23 10:31:00 EDT, Height, kg, 09/07/23 10:31:00 EDT, Dosing Weight Start Date: 09/22/23 Status: Ordered Start: 05-29-2022 End: 05-23-2023 Proscar 5 mg oral tablet Dos e : 5 mg = 1 tab(s), Oral, qDay, PSA elevation, # 90 tab(s), 1 Refill(s), [id number], PSA elevation, 185, cm, 11/24/22 8:28:00 [...] mL, 1 Refill(s), 07/02/21 14:36:00 EST, Pharmacy: [facility]/pharmacy #[id number], 185.4, cm, 06/06/21 8:59:00 EST, Height, kg, 06/06/21 8:59:00 EST, Dosing Weight Start Date: 06/18/21 Stop Date: 07/02/21 Status: Ordered meloxicam 15 mg oral tablet (7 sources) Nonsteroidal Anti-inflammatory Drug Start: 10-20-2023 meloxicam 15 mg oral tablet Dose : 15 mg = 1 tab(s), Oral, qDay, # 90 tab(s), 1 Refill(s), Pharmacy: [facility]/pharmacy #[id number], 185, cm, 09/07/23 10:31:00 EDT, Height, kg, 09/07/23 10:31:00 EDT, Dosing Weight Start Date: 10/20/23 Status: Ordered Start: 11-24-2022 meloxicam 15 m g oral tablet Dose : 15 mg = 1 tab(s), Oral, qDay, TAKE 1 TABLET BY MOUTH EVERY DAY, # 90 tab(s), 1 Refill(s), Pharmacy: [facility]/pharmacy #[id number], 185, cm, 11/24/22 8:28:00 EDT, Height, kg, 11/24/22 8:28:00 EDT, Dosing Weight Start Date: 11/24/22 Status: Ordered Start: 06-30-2022 meloxicam 15 m g oral tablet Dose : 15 mg = 1 tab(s), Oral, qDay, TAKE 1 TABLET BY MOUTH EVERY DAY, # 90 tab(s), 1 Refill(s), Pharmacy: [facility]/pharmacy #[id number], 185, cm, 05/29/22 8:21:00 EST, Height, kg, 05/29/22 8:21:00 EST, Dosing Weight Start Date: 06/30/22 Status: Ordered Start: 01-06-2022 meloxicam 15 m g oral tablet Dose : 15 mg = 1 tab(s), Oral, qDay, TAKE 1 TABLET BY MOUTH EVERY DAY, # 90 tab(s), 1 Refill(s), Pharmacy: [facility]/pharmacy #[id number], 181.5, cm, 12/13/21 8:44:00 EDT, [...] release), # 100 tab(s), 1 Refill(s), [id number], CAD (coronary artery disease), 180, cm, 06/27/24 8:03:00 EST, Height, kg, 06/27/24 8:03:00 EST, Dosing Weight Start Date: 06/27/24 Stop Date: 12/24/24 Status: Ordered Quantity: 100.0 Unit: tab(s) Repeat number: 2 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; Start: 12-14-2023 End: 06-11-2024 metoprolol succinate 25 mg o ral TABLET extended release Dose : 25 mg = 1 tab(s), Oral, qDay, Do not crush or chew (controlled release), # 90 tab(s), 1 Refill(s), [id number], CAD (coronary artery disease), 185, cm, 12/14/23 8:06:00 EDT, Height, kg, 12/14/23 8:06:00 EDT, Dosing Weight Start Date: 12/14/23 Stop Date: 06/11/24 Status: Ordered Quantity: 90.0 Unit: tab(s) Repeat number: 2 Indication: Atherosclerotic heart disease of [place] coronary artery without angina pectoris Start: 07-01-2023 [...] release), # 90 tab(s), 1 Refill(s), Pharmacy: [facility]/pharmacy #[id number], CAD (coronary artery disease), 179.5, cm, 05/25/23 11:00:00 EST, Height, kg, 05/25/23 11:00:00 EST, Dosing Weight Start Date: 05/25/23 Stop Date: 11/21/23 Status: Ordered Start: 12-13-2021 End: 05-23-2023 metoprolol succinate 25 mg o ral TABLET extended release Dose : 25 mg = 1 tab(s), Oral, qDay, Do not crush or chew (controlled release), # 90 tab(s), 1 Refill(s), [id number], CAD (coronary artery disease), 185, cm, 11/24/22 8:28:00 EDT, Height, kg, 11/24/22 8:28:00 EDT, Dosing Weight Start Date: 11/24/22 Stop Date: 05/23/23 Status: Ordered Start: 05-31-2021 End: 02-25-2022 metoprolol succinate 25 mg o ral TABLET extended release Dose : 25 mg = 1 tab(s), Oral, qDay, Do not crush or chew (controlled release), # 90 tab(s), 2 Refill(s), [id number], CAD (coronary artery disease), 184.5, cm, [...] 0 Refill(s), 10/22/24 4:22:00 PM EDT, [id number], 180, cm, 10/17/24 9:05:00 EDT, Height, [...] tab(s), 0 Refill(s), 09/03/21 9:56:00 EDT, Pharmacy: [facility]/pharmacy #[id number], Pain of right hip S/P [...] qDay, # 100 cap(s), 1 Refill(s), Pharmacy: [facility]/pharmacy #[id number], HTN, goal below 140/90, 180, cm, 06/27/24 8:03:00 EST, Height, kg, 06/27/24 8:03:00 EST, Dosing Weight Start Date: 06/27/24 Stop Date: 12/24/24 Status: Ordered Quantity: 100.0 Unit: cap(s) Repeat number: 2 Indications: Essential (primary) hypertension; Start: 12-14-2023 End: 06-11-2024 ramipril 10 mg oral capsule Dose : 10 mg = 1 cap(s), Oral, qDay, # 90 cap(s), 1 Refill(s), Pharmacy: [facility]/pharmacy #[id number], HTN, goal below 140/90, 185, cm, 12/14/23 8:06:00 EDT, Height, kg, 12/14/23 8:06:00 EDT, Dosing Weight Start Date: 12/14/23 Stop Date: 06/11/24 Status: Ordered Quantity: 90.0 Unit: cap(s) Repeat number: 2 Indication: Essential (primary) hypertension Start: 05-25-2023 End: 11-21-2023 ramipril 10 mg oral capsule Dose : 10 mg = 1 cap(s), Oral, qDay, # 90 cap(s), 1 Refill(s), Pharmacy: [facility]/pharmacy #[id number], HTN, goal below 140/90, 179.5, cm, 05/25/23 11:00:00 EST, Height, kg, 05/25/23 11:00:00 EST, Dosing Weight Start Date: 05/25/23 Stop Date: 11/21/23 Status: Ordered Start: 05-31-2021 End: 05-23-2023 ramipril 10 mg oral capsule Dose : 10 mg = 1 cap(s), Oral, qDay, # 90 cap(s), 1 Refill(s), Pharmacy: [facility]/pharmacy #[id number], HTN, goal below 140/90, 185, cm, 11/24/22 8:28:00 EDT, Height, kg, 11/24/22 8:28:00 EDT, Dosing Weight Start Date: 11/24/22 Stop Date: 05/23/23 Status: Ordered rosuvastatin calcium 40 mg oral tablet (20 sources) HMG-CoA Reductase Inhibitor Start: 06-27-2024 rosuvastatin 40 mg oral tablet Dose : 40 mg = 1 tab(s), Oral, qDay, # 100 tab(s), 1 Refill(s), Pharmacy: [facility]/pharmacy #[id number], 180, cm, 06/27/24 8:03:00 EST, Height, kg, 06/27/24 8:03:00 EST, Dosing Weight Start Date: 06/27/24 Status: Ordered Quantity: 100.0 Unit: tab(s) Repeat number: 2 Start: 12-14-2023 rosuvastatin 4 0 mg oral tablet Dose : 40 mg = 1 tab(s), Oral, qDay, # 100 tab(s), 1 Refill(s), [id number], 185, cm, 12/14/23 8:06:00 EDT, Height, kg, 12/14/23 8:06:00 EDT, Dosing Weight Start Date: 12/14/23 Status: Ordered Quantity: 100.0 Unit: tab(s) Repeat number: 2 Start: 09-22-2023 rosuvastatin 4 0 mg oral tablet Dose : 40 mg = 1 tab(s), Oral, qDay, # 100 tab(s), 1 Refill(s), [id number], 185, cm, 09/07/23 10:31:00 EDT, Height, [...] 1 Refill(s), 05/23/23 9:12:00 AM EST, Pharmacy: [facility]/pharmacy #[id number], Hyperlipidemia LDL goal Start Date: 11/24/22 Stop Date: 05/23/23 Status: Ordered sennosides, RETIREMENT (1 source) Start: 08-21-2021 End: 08-24-2021 take 1 tablet by mouth twice daily Senokot S 50 mg-8.6 mg oral tablet Dose = 2 tab(s), Oral, BID, Take until first bowel movement, then as needed, # 20 tab(s), 0 Refill(s), Pharmacy: [facility]/pharmacy #[id number], 182, cm, 08/20/21 15:11:00 EST, [...] day(s), # 20 tab(s), 0 Refill(s), Pharmacy: [facility]/pharmacy #[id number], 180, cm, 10/17/24 9:05:00 EDT, Height, 101, kg, 10/17/24 9:05:00 EDT, Dosing Weight Start Date: 10/17/24 Stop Date: 10/27/24 Status: Ordered Quantity: 20.0 Unit: tab(s) Repeat number: 1 tamsulosin hydrochloride 0.4 mg oral capsule (20 sources) alpha-Adrenergic Jonathan Start: 06-27-2024 tamsulosin 0.4 mg oral capsule Dose : 0.4 mg = 1 cap(s), Oral, qDay, # 100 cap(s), 1 Refill(s), Pharmacy: [facility]/pharmacy #[id number], 180, cm, 06/27/24 8:03:00 EST, Height, kg, 06/27/24 8:03:00 EST, Dosing Weight Start Date: 06/27/24 Status: Ordered Quantity: 100.0 Unit: cap(s) Repeat number: 2 Start: 12-14-2023 tamsulosin 0.4 mg oral capsule Dose : 0.4 mg = 1 cap(s), Oral, qDay, # 100 cap(s), 1 Refill(s), Pharmacy: [facility]/pharmacy #[id number], 185, cm, 12/14/23 8:06:00 EDT, Height, kg, 12/14/23 8:06:00 EDT, Dosing Weight Start Date: 12/14/23 Status: Ordered Quantity: 100.0 Unit: cap(s) Repeat number: 2 Start: 05-25-2023 End: 11-21-2023 tamsulosin 0.4 mg oral capsu le Dose : 0.4 mg = 1 cap(s), Oral, qDay, # 100 cap(s), 1 Refill(s), [id number], 185, cm, 09/07/23 10:31:00 EDT, Height, kg, 09/07/23 10:31:00 EDT, Dosing Weight Start Date: 09/22/23 Status: Ordered Start: 05-29-2022 End: 05-23-2023 tamsulosin 0.4 mg oral capsu le Dose : 0.4 mg = 1 cap(s), Oral, qDay, # 90 cap(s), 1 Refill(s), [id number], 185, cm, 11/24/22 8:28:00 EDT, Height, [...] procedure, # 4 cap(s), 3 Refill(s), [id number], Prophylactic antibiotics NEEDED prior to dental [...] sources) Coronary arteriosclerosis; Translations: [Coronary arteriosclerosis in [place] artery] Onset: 2 05-31-2021 Chronic Comment on [...] Basophil, Absolute 0.0 10 3/mcL Normal 0.0-0.3 [facility] Comment on above: Performed By: #### A DIFF, GFR, A1C, CBC, CMP, LIPID, VIDH, [id number], ANEU #### [address] [address] #### PTH #### [facility] [address] [place] [id number] Basophils/100 WBC (Bld) 0.4 % Normal 0.0-2.5 [facility] Comment on above: Performed By: #### A DIFF, GFR, A1C, CBC, CMP, LIPID, VIDH, [id number], ANEU #### [place] [address] [place], [place] [address] #### PTH #### [address] [address] Eosinophil, Absolute 0.1 10 3/mcL Normal 0.0-0.7 [facility] Comment on above: Performed By: #### A DIFF, GFR, A1C, CBC, CMP, LIPID, VIDH, [id number], ANEU #### [place] [address] #### PTH #### [address] [address] Eosinophils/100 WBC (Bld) 3.7 % Normal 0.0-6.0 [facility] Comment on above: Performed By: #### A DIFF, GFR, A1C, CBC, CMP, LIPID, VIDH, [id number], ANEU #### [place] [address] #### PTH #### [address] [address] Lymphocyte, Absolute 0.7 10 3/mcL Low 0.9-4.3 [facility] Comment on above: Performed By: #### A DIFF, GFR, A1C, CBC, CMP, LIPID, VIDH, [id number], ANEU #### [place] [address] #### PTH #### [address] [address] Lymphocytes/100 WBC (Bld) 20.8 % Normal 20.0-40.0 [facility] Comment on above: Performed By: #### A DIFF, GFR, A1C, CBC, CMP, LIPID, VIDH, [id number], ANEU #### [place] [address] #### PTH #### [address] [address] Monocyte, Absolute 0.3 10 3/mcL Normal 0.1-1.4 [facility] Comment on above: Performed By: #### A DIFF, GFR, A1C, CBC, CMP, LIPID, VIDH, [id number], ANEU #### [address] [place] [address] #### PTH #### [address] [address] Monocytes/100 WBC (Bld) 8.9 % Normal 2.0-13.0 [facility] Comment on above: Performed By: #### A DIFF, GFR, A1C, CBC, CMP, LIPID, VIDH, [id number], ANEU #### [address] [address] #### PTH #### [address] [address] Neutrophils/100 WBC (Bld) 66.2 % Normal 50.0-75.0 [facility] Comment on above: Performed By: #### A DIFF, GFR, A1C, CBC, CMP, LIPID, VIDH, [id number], ANEU #### [address] [address] #### PTH #### [address] [address] .GFRon 11-07-2024 Estimated Glomerular Filtration Rate 34 ml/min/1.73sqm Normal [facility] Comment on above: Result Comment: Stages of [...] DIFF, GFR, A1C, CBC, CMP, LIPID, VIDH, [id number], ANEU #### [address] [address] #### PTH #### [address] [address] .NEUABSon 11-07-2024 Neutrophil, Absolute 2.3 10 3/mcL Normal 2.3-8.1 [facility] Comment on above: Performed By: #### A DIFF, GFR, A1C, CBC, CMP, LIPID, VIDH, [id number], ANEU #### [address] [address] #### PTH #### [place] [id number] CBCon 11-07-2024 Erythrocyte distribution width (RBC) [Ratio] 14.0 % Normal 11.5-15.5 [facility] Comment on above: Performed By: #### A DIFF, GFR, A1C, CBC, CMP, LIPID, VIDH, [id number], ANEU #### [place] [address] #### PTH #### [place] [address] Hematocrit (Bld) [Volume fraction] 33.5 % Low 40.0-52.0 [facility] Comment on above: Performed By: #### A DIFF, GFR, A1C, CBC, CMP, LIPID, VIDH, [id number], ANEU #### [place] [address] #### PTH #### [place] [address] Hgb 11.6 G/dL Low 13.0-17.5 [facility] Comment on above: Performed By: #### A DIFF, GFR, A1C, CBC, CMP, LIPID, VIDH, [id number], ANEU #### [place] [address] #### PTH #### [place] [address] MCH (RBC) [Entitic mass] 34.6 pg High 27.0-33.0 [facility] Comment on above: Performed By: #### A DIFF, GFR, A1C, CBC, CMP, LIPID, VIDH, [id number], ANEU #### [place] [address] #### PTH #### [place] [address] MCHC 34.6 G/dL Normal 32.0-36.0 [facility] Comment on above: Performed By: #### A DIFF, GFR, A1C, CBC, CMP, LIPID, VIDH, [id number], ANEU #### [place] [address] #### PTH #### [place] [address] MCV (RBC) [Entitic vol] 99.8 fL Normal 81.0-100.0 [facility] Comment on above: Performed By: #### A DIFF, GFR, A1C, CBC, CMP, LIPID, VIDH, [id number], ANEU #### [place] [address] #### PTH #### [place] [address] Platelet 178 10 3/mcL Normal 150-450 [facility] Comment on above: Performed By: #### A DIFF, GFR, A1C, CBC, CMP, LIPID, VIDH, [id number], ANEU #### [place] [address] #### PTH #### [place] [address] Platelet mean volume (Bld) [Entitic vol] 6.4 fL Normal 6.4-10.5 [facility] Comment on above: Performed By: #### A DIFF, GFR, A1C, CBC, CMP, LIPID, VIDH, [id number], ANEU #### [place] [address] #### PTH #### [place] [address] RBC 3.35 10 6/mcL Low 4.50-6.00 [facility] Comment on above: Performed By: #### A DIFF, GFR, A1C, CBC, CMP, LIPID, VIDH, [id number], ANEU #### [place] [address] #### PTH #### [place] [address] WBC 3.4 10 3/mcL Low 4.5-10.8 [facility] Comment on above: Performed By: #### A DIFF, GFR, A1C, CBC, CMP, LIPID, VIDH, [id number], ANEU #### [address] [address] #### PTH #### [place] [address] CMPon 11-07-2024 Albumin Level 3.4 G/dL Normal 3.4-4.8 [facility] Comment on above: Performed By: #### A DIFF, GFR, A1C, CBC, CMP, LIPID, VIDH, [id number], ANEU #### [place] [address] #### PTH #### [place] [address] Albumin/Globulin [Mass ratio] 1.1 {ratio} Normal 1.1-2.5 [facility] Comment on above: Performed By: #### A DIFF, GFR, A1C, CBC, CMP, LIPID, VIDH, [id number], ANEU #### [place] [address] #### PTH #### [address] [address] ALP [Catalytic activity/Vol] 107 U/L Normal 40-135 [facility] Comment on above: Performed By: #### A DIFF, GFR, A1C, CBC, CMP, LIPID, VIDH, [id number], ANEU #### [address] [address] #### PTH #### [place] [id number] ALT [Catalytic activity/Vol] 27 U/L Normal 16-63 [facility] Comment on above: Performed By: #### A DIFF, GFR, A1C, CBC, CMP, LIPID, VIDH, [id number], ANEU #### [place] [address] #### PTH #### [address] [address] AST [Catalytic activity/Vol] 14 U/L Normal 10-40 [facility] Comment on above: Performed By: #### A DIFF, GFR, A1C, CBC, CMP, LIPID, VIDH, [id number], ANEU #### [place] [address] #### PTH #### [place] [address] Bili Total 0.6 mg/dL Normal 0.2-1.0 [facility] Comment on above: Result Comment: Use of this assay is not recommended for patients undergoing treatment with eltrombopag due to the potential for falsely elevated results. Performed By: #### A DIFF, GFR, A1C, CBC, CMP, LIPID, VIDH, [id number], ANEU #### [place] [address] #### PTH #### [place] [address] BUN/Creatinine Ratio 14 ratio Normal 7-27 [facility] Comment on above: Performed By: #### A DIFF, GFR, A1C, CBC, CMP, LIPID, VIDH, [id number], ANEU #### [place] [address] #### PTH #### [place] [id number] Calcium [Mass/Vol] 9.2 mg/dL Normal 8.4-10.2 [facility] Comment on above: Performed By: #### A DIFF, GFR, A1C, CBC, CMP, LIPID, VIDH, [id number], ANEU #### [place] [address] #### PTH #### [place] [address] Chloride [Moles/Vol] 107 mmol/L Normal 98-107 [facility] Comment on above: Performed By: #### A DIFF, GFR, A1C, CBC, CMP, LIPID, VIDH, [id number], ANEU #### [address] [address] #### PTH #### [address] [address] CO2 [Moles/Vol] 28 mmol/L Normal 23-31 [facility] Comment on above: Performed By: #### A DIFF, GFR, A1C, CBC, CMP, LIPID, VIDH, [id number], ANEU #### [address] [address] #### PTH #### [place] [address] Creatinine [Mass/Vol] 2.00 mg/dL High 0.67-1.17 [facility] Comment on above: Performed By: #### A DIFF, GFR, A1C, CBC, CMP, LIPID, VIDH, [id number], ANEU #### [place] [address] #### PTH #### [place] [address] Electrolyte Balance 4.0 mEq/L Normal 4.0-15.0 [facility] Comment on above: Performed By: #### A DIFF, GFR, A1C, CBC, CMP, LIPID, VIDH, [id number], ANEU #### [address] [address] #### PTH #### [place] [address] Globulin 3.2 G/dL Normal 2.7-4.4 [facility] Comment on above: Performed By: #### A DIFF, GFR, A1C, CBC, CMP, LIPID, VIDH, [id number], ANEU #### [address] [address] #### PTH #### [place] [address] Glucose [Mass/Vol] 102 mg/dL Normal 83-110 [facility] Comment on above: Performed By: #### A DIFF, GFR, A1C, CBC, CMP, LIPID, VIDH, [id number], ANEU #### [address] [address] #### PTH #### [address] [address] Potassium [Moles/Vol] 4.3 mmol/L Normal 3.5-5.1 [facility] Comment on above: Performed By: #### A DIFF, GFR, A1C, CBC, CMP, LIPID, VIDH, [id number], ANEU #### [address] [address] #### PTH #### [address] [address] Sodium [Moles/Vol] 139 mmol/L Normal 136-145 [facility] Comment on above: Performed By: #### A DIFF, GFR, A1C, CBC, CMP, LIPID, VIDH, [id number], ANEU #### [address] [address] #### PTH #### [address] [address] Total Protein 6.6 G/dL Normal 6.4-8.2 [facility] Comment on above: Performed By: #### A DIFF, GFR, A1C, CBC, CMP, LIPID, VIDH, [id number], ANEU #### [address] [address] #### PTH #### [address] [address] Urea nitrogen [Mass/Vol] 28 mg/dL High 7-18 [facility] Comment on above: Performed By: #### A DIFF, GFR, A1C, CBC, CMP, LIPID, VIDH, [id number], ANEU #### [address] [address] #### PTH #### [address] [address] FEon 11-07-2024 Iron [Mass/Vol] 116 ug/dL Normal 65-175 [facility] Comment on above: Performed By: #### A DIFF, GFR, A1C, CBC, CMP, LIPID, VIDH, [id number], ANEU #### [address] [address] #### PTH #### [address] [address] [place] 11-07-2024 Ferritin [Mass/Vol] 463.0 ng/mL High 26.0-388.0 [facility] Comment on above: Performed By: #### A DIFF, GFR, A1C, CBC, CMP, LIPID, VIDH, [id number], ANEU #### [address] [address] #### PTH #### [place] [address] IBCon 11-07-2024 TIBC 233 mcg/dL Low 250-450 [facility] Comment on above: Performed By: #### A DIFF, GFR, A1C, CBC, CMP, LIPID, VIDH, [id number], ANEU #### [address] [address] #### PTH #### [place] [address] LABORATORYOrdered By: SYSTEM SYSTEM on 11-07-2024 Albumin [...] 11-07-2024 Magnesium [Mass/Vol] 1.8 mg/dL Normal 1.8-2.4 [facility] Comment on above: Performed By: #### A DIFF, GFR, A1C, CBC, CMP, LIPID, VIDH, [id number], ANEU #### [address] [address] #### PTH #### [place] [address] PHOSon 11-07-2024 Phosphate [Mass/Vol] 2.7 mg/dL Normal 2.3-4.1 [facility] Comment on above: Performed By: #### A DIFF, GFR, A1C, CBC, CMP, LIPID, VIDH, [id number], ANEU #### [address] [address] #### PTH #### [address] [address] PTHon 11-07-2024 PTH, Intact 45.3 pg/mL Normal 18.5-88.0 [facility] Comment on above: Performed By: #### A DIFF, GFR, A1C, CBC, CMP, LIPID, VIDH, [id number], ANEU #### [address] [address] #### PTH #### [address] [address] .Auto Diffon 10-18-2024 Basophil, Absolute 0.0 10 3/mcL Normal 0.0-0.3 [facility] Comment on above: Performed By: #### A DIFF, GFR, A1C, CBC, CMP, LIPID, VIDH, [id number], ANEU #### [address] [address] #### PTH #### [address] [address] Basophils/100 WBC (Bld) 0.1 % Normal 0.0-2.5 [facility] Comment on above: Performed By: #### A DIFF, GFR, A1C, CBC, CMP, LIPID, VIDH, [id number], ANEU #### [address] [address] #### PTH #### [address] [address] Eosinophil, Absolute 0.0 10 3/mcL Normal 0.0-0.7 [facility] Comment on above: Performed By: #### A DIFF, GFR, A1C, CBC, CMP, LIPID, VIDH, [id number], ANEU #### [address] [address] #### PTH #### [address] [address] Eosinophils/100 WBC (Bld) 0.1 % Normal 0.0-6.0 [facility] Comment on above: Performed By: #### A DIFF, GFR, A1C, CBC, CMP, LIPID, VIDH, [id number], ANEU #### [address] [address] #### PTH #### [address] [address] Lymphocyte, Absolute 0.8 10 3/mcL Low 0.9-4.3 [facility] Comment on above: Performed By: #### A DIFF, GFR, A1C, CBC, CMP, LIPID, VIDH, [id number], ANEU #### [address] [address] #### PTH #### [address] [address] Lymphocytes/100 WBC (Bld) 8.1 % Low 20.0-40.0 [facility] Comment on above: Performed By: #### A DIFF, GFR, A1C, CBC, CMP, LIPID, VIDH, [id number], ANEU #### [address] [address] #### PTH #### [address] [address] Monocyte, Absolute 1.0 10 3/mcL Normal 0.1-1.4 [facility] Comment on above: Performed By: #### A DIFF, GFR, A1C, CBC, CMP, LIPID, VIDH, [id number], ANEU #### [address] [address] #### PTH #### [address] [address] Monocytes/100 WBC (Bld) 11.3 % Normal 2.0-13.0 [facility] Comment on above: Performed By: #### A DIFF, GFR, A1C, CBC, CMP, LIPID, VIDH, [id number], ANEU #### [address] [address] #### PTH #### [address] [address] Neutrophils/100 WBC (Bld) 80.4 % High 50.0-75.0 [facility] Comment on above: Performed By: #### A DIFF, GFR, A1C, CBC, CMP, LIPID, VIDH, [id number], ANEU #### [address] [address] #### PTH #### [address] [address] .GFRon 10-18-2024 Estimated Glomerular Filtration Rate 16 ml/min/1.73sqm Normal [facility] Comment on above: Result Comment: Stages of [...] DIFF, GFR, A1C, CBC, CMP, LIPID, VIDH, [id number], ANEU #### [address] [address] #### PTH #### [address] [address] .NEUABSon 10-18-2024 Neutrophil, Absolute 7.4 10 3/mcL Normal 2.3-8.1 [facility] Comment on above: Performed By: #### A DIFF, GFR, A1C, CBC, CMP, LIPID, VIDH, [id number], ANEU #### [place] [address] #### PTH #### [address] [address] BMPon 10-18-2024 BUN/Creatinine Ratio 11 ratio Normal 7-27 [facility] Comment on above: Performed By: #### A DIFF, GFR, A1C, CBC, CMP, LIPID, VIDH, [id number], ANEU #### [address] [address] #### PTH #### [address] [address] Calcium [Mass/Vol] 9.3 mg/dL Normal 8.4-10.2 [facility] Comment on above: Performed By: #### A DIFF, GFR, A1C, CBC, CMP, LIPID, VIDH, [id number], ANEU #### [address] [address] #### PTH #### [address] [address] Chloride [Moles/Vol] 95 mmol/L Low 98-107 [facility] Comment on above: Performed By: #### A DIFF, GFR, A1C, CBC, CMP, LIPID, VIDH, [id number], ANEU #### [place] [address] #### PTH #### [address] [address] CO2 [Moles/Vol] 25 mmol/L Normal 23-31 [facility] Comment on above: Performed By: #### A DIFF, GFR, A1C, CBC, CMP, LIPID, VIDH, [id number], ANEU #### [address] [address] #### PTH #### [address] [address] Creatinine [Mass/Vol] 3.67 mg/dL High 0.67-1.17 [facility] Comment on above: Performed By: #### A DIFF, GFR, A1C, CBC, CMP, LIPID, VIDH, [id number], ANEU #### [address] [address] #### PTH #### [address] [address] Electrolyte Balance 10.0 mEq/L Normal 4.0-15.0 [facility] Comment on above: Performed By: #### A DIFF, GFR, A1C, CBC, CMP, LIPID, VIDH, [id number], ANEU #### [address] [address] #### PTH #### [address] [address] Glucose [Mass/Vol] 109 mg/dL Normal 83-110 [facility] Comment on above: Performed By: #### A DIFF, GFR, A1C, CBC, CMP, LIPID, VIDH, [id number], ANEU #### [address] [address] #### PTH #### [address] [address] Potassium [Moles/Vol] 4.6 mmol/L Normal 3.5-5.1 [facility] Comment on above: Performed By: #### A DIFF, GFR, A1C, CBC, CMP, LIPID, VIDH, [id number], ANEU #### [address] [address] #### PTH #### [address] [address] Sodium [Moles/Vol] 130 mmol/L Low 136-145 [facility] Comment on above: Performed By: #### A DIFF, GFR, A1C, CBC, CMP, LIPID, VIDH, [id number], ANEU #### [address] [address] #### PTH #### [address] [address] Urea nitrogen [Mass/Vol] 39 mg/dL High 7-18 [facility] Comment on above: Performed By: #### A DIFF, GFR, A1C, CBC, CMP, LIPID, VIDH, [id number], ANEU #### [address] [address] #### PTH #### [place] [address] CBCon 10-18-2024 Erythrocyte distribution width (RBC) [Ratio] 14.5 % Normal 11.5-15.5 [facility] Comment on above: Performed By: #### A DIFF, GFR, A1C, CBC, CMP, LIPID, VIDH, [id number], ANEU #### [address] [address] #### PTH #### [address] [address] Hematocrit (Bld) [Volume fraction] 35.7 % Low 40.0-52.0 [facility] Comment on above: Performed By: #### A DIFF, GFR, A1C, CBC, CMP, LIPID, VIDH, [id number], ANEU #### [address] [address] #### PTH #### [place] [address] Hgb 12.5 G/dL Low 13.0-17.5 [facility] Comment on above: Performed By: #### A DIFF, GFR, A1C, CBC, CMP, LIPID, VIDH, [id number], ANEU #### [place] [address] #### PTH #### [address] [address] MCH (RBC) [Entitic mass] 34.9 pg High 27.0-33.0 [facility] Comment on above: Performed By: #### A DIFF, GFR, A1C, CBC, CMP, LIPID, VIDH, [id number], ANEU #### [place] [address] #### PTH #### [place] [address] MCHC 35.0 G/dL Normal 32.0-36.0 [facility] Comment on above: Performed By: #### A DIFF, GFR, A1C, CBC, CMP, LIPID, VIDH, [id number], ANEU #### [place] [address] #### PTH #### [place] [address] MCV (RBC) [Entitic vol] 100.0 fL Normal 81.0-100.0 [facility] Comment on above: Performed By: #### A DIFF, GFR, A1C, CBC, CMP, LIPID, VIDH, [id number], ANEU #### [place] [address] #### PTH #### [place] [address] Platelet 143 10 3/mcL Low 150-450 [facility] Comment on above: Performed By: #### A DIFF, GFR, A1C, CBC, CMP, LIPID, VIDH, [id number], ANEU #### [place] [address] #### PTH #### [place] [address] Platelet mean volume (Bld) [Entitic vol] 7.1 fL Normal 6.4-10.5 [facility] Comment on above: Performed By: #### A DIFF, GFR, A1C, CBC, CMP, LIPID, VIDH, [id number], ANEU #### [address] [address] #### PTH #### [place] [address] RBC 3.58 10 6/mcL Low 4.50-6.00 [facility] Comment on above: Performed By: #### A DIFF, GFR, A1C, CBC, CMP, LIPID, VIDH, [id number], ANEU #### [address] [address] #### PTH #### [facility] [address] [place] [address] WBC 9.3 10 3/mcL Normal 4.5-10.8 [facility] Comment on above: Performed By: #### A DIFF, GFR, A1C, CBC, CMP, LIPID, VIDH, [id number], ANEU #### [address] [address] #### PTH #### [place] [address] LABORATORYOrdered By: SYSTEM SYSTEM on 10-18-2024 Basophils [...] 10/17/2024 3:37:12 PM Ordering Provider: CHI Ayon [facility] LABORATORYOrdered By: SYSTEM SYSTEM on 08-23-2024 Prostate specific Ag [Mass/Vol] 7.30 ng/mL High 0.00 - 4.00 ng/mL AO ADM SS PSAon 08-23-2024 Prostate Specific Antigen 7.30 ng/mL High 0.00-4.00 [facility] Comment on above: Performed By: #### A DIFF, GFR, A1C, CBC, CMP, LIPID, VIDH, [id number], ANEU #### [facility] [address] [place], [place] [address] #### PTH #### [facility] [address] [place] [address] CT ANGIOGRAPHY RENAL ARTERIE S W/PPon 07-07-2024 [...] External iliac artery; IIA: Internal iliac artery; ASSISTANT [employer]ER: Common femoral artery; RT: Right; LT: Left COMPARISON: CTA TAVR planning 06/10/2023. HISTORY: ORDERING SYSTEM PROVIDED HISTORY: Reason for Exam: ???to evaluate for renal artery stenosis, renal scarring or lesions???that could contribute to secondary causes of uncontrolled hypertension FINDINGS: Patient motion obscures detail. VASCULAR: Suprarenal Ao: Minimal mixed atherosclerosis.No aneurysm. CA: Challenging evaluation of stenosis given patient motion, however at least [id number] stenosis due to noncalcified plaque at the [...] 07/07/2024 3:05:37 PM Ordering Provider: CHI DURAN [facility] .GFRon 06-30-2024 GFR 39 ml/min/1.73sqm [facility] Comment on above: Result Comment: GFR [...] DIFF, GFR, A1C, CBC, CMP, LIPID, VIDH, [id number], ANEU #### [facility] [address] [place], [place] [address] #### PTH #### [facility] [address] [place] [address] GFR Non- 32 ml/min/1.73sqm [facility] Comment on above: Result Comment: GFR [...] DIFF, GFR, A1C, CBC, CMP, LIPID, VIDH, [id number], ANEU #### [address] [address] #### PTH #### [address] [address] CREon 06-30-2024 Creatinine [Mass/Vol] 2.02 mg/dL High 0.70-1.30 [facility] Comment on above: Order Comment: faxed to [phone]. 06/30/2024 13:21:40 EST AH/ALSfaxed to [phone]. 06/30/2024 13:40:47 EST AH/ALS Result Comment: Test ing performed on Siemens Dimension EXL analyzer using a modified kinetic Nathalie technique. Performed By: #### A DIFF, GFR, A1C, CBC, CMP, LIPID, VIDH, [id number], ANEU #### [address] [address] #### PTH #### [place] [address] LABORATORYOrdered By: SYSTEM SYSTEM on 06-30-2024 Creatinine [...] 06-11-2024 % Free PSA 14.4 % Normal [facility] Comment on above: Result Comment: The table [...] any other population of men. Performed At: [facility] [id number] Malaika Killian PhD Ph:[phone] Performed By: #### A DIFF, GFR, A1C, CBC, CMP, LIPID, VIDH, [id number], ANEU #### [address] [address] #### PTH #### [address] [address] PSA Free 0.79 ng/mL Normal N/A [facility] Comment on above: Result Comment: Deepak TAYLORIA methodology. Performed By: #### A DIFF, GFR, A1C, CBC, CMP, LIPID, VIDH, [id number], ANEU #### [address] [address] #### PTH #### [address] [address] .Auto Diffon 06-09-2024 Basophil, Absolute 0.0 10 3/mcL Normal 0.0-0.2 [facility] Comment on above: Performed By: #### A DIFF, GFR, A1C, CBC, CMP, LIPID, VIDH, [id number], ANEU #### [address] [address] #### PTH #### [address] [address] Basophils/100 WBC (Bld) 0.4 % Normal 0.0-2.5 [facility] Comment on above: Performed By: #### A DIFF, GFR, A1C, CBC, CMP, LIPID, VIDH, [id number], ANEU #### [address] [address] #### PTH #### [address] [address] Eosinophil, Absolute 0.2 10 3/mcL Normal 0.0-0.7 [facility] Comment on above: Performed By: #### A DIFF, GFR, A1C, CBC, CMP, LIPID, VIDH, [id number], ANEU #### [address] [address] #### PTH #### [address] [address] Eosinophils/100 WBC (Bld) 4.5 % Normal 0.0-7.0 [facility] Comment on above: Performed By: #### A DIFF, GFR, A1C, CBC, CMP, LIPID, VIDH, [id number], ANEU #### [address] [address] #### PTH #### [address] [address] Lymphocyte, Absolute 1.0 10 3/mcL Normal 0.9-4.3 [facility] Comment on above: Performed By: #### A DIFF, GFR, A1C, CBC, CMP, LIPID, VIDH, [id number], ANEU #### [address] [address] #### PTH #### [address] [address] Lymphocytes/100 WBC (Bld) 25.9 % Normal 20.0-40.0 [facility] Comment on above: Performed By: #### A DIFF, GFR, A1C, CBC, CMP, LIPID, VIDH, [id number], ANEU #### [address] [address] #### PTH #### [address] [address] Monocyte, Absolute 0.4 10 3/mcL Normal 0.1-1.4 [facility] Comment on above: Performed By: #### A DIFF, GFR, A1C, CBC, CMP, LIPID, VIDH, [id number], ANEU #### [address] [address] #### PTH #### [address] [address] Monocytes/100 WBC (Bld) 8.8 % Normal 2.0-13.0 [facility] Comment on above: Performed By: #### A DIFF, GFR, A1C, CBC, CMP, LIPID, VIDH, [id number], ANEU #### [address] [address] #### PTH #### [address] [address] Neutrophils/100 WBC (Bld) 60.4 % Normal 50.0-75.0 [facility] Comment on above: Performed By: #### A DIFF, GFR, A1C, CBC, CMP, LIPID, VIDH, [id number], ANEU #### [place] [address] [place], [place] [address] #### PTH #### [address] [address] .GFRon 06-09-2024 GFR 38 ml/min/1.73sqm Normal [facility] Comment on above: Result Comment: GFR Population [...] DIFF, GFR, A1C, CBC, CMP, LIPID, VIDH, [id number], ANEU #### [address] [address] #### PTH #### [address] [address] GFR Non- 31 ml/min/1.73sqm Normal [facility] Comment on above: Result Comment: GFR Population [...] DIFF, GFR, A1C, CBC, CMP, LIPID, VIDH, [id number], ANEU #### [address] [address] #### PTH #### [address] [address] .NEUABSon 06-09-2024 Neutrophil, Absolute 2.4 10 3/mcL Normal 2.3-8.1 [facility] Comment on above: Performed By: #### A DIFF, GFR, A1C, CBC, CMP, LIPID, VIDH, [id number], ANEU #### [address] [address] #### PTH #### [place] [address] A1Con 06-09-2024 Glucose [Mass/Vol] 103 mg/dL Normal [facility] Comment on above: Result Comment: Nalini mated Average Glucose calculated by equation ((28.7xA1C)-46.7) Estimated average glucose (eAG) is a calculated value from Hemoglobin A1C and is manufacturing sales representative of the average blood glucose level in the last 2-3 month period. Normal range: less than 114 mg/dL Performed By: #### A DIFF, GFR, A1C, CBC, CMP, LIPID, VIDH, [id number], ANEU #### [address] [address] #### PTH #### [place] [address] HbA1c (Bld) [Mass fraction] 5.2 % Normal 4.3-6.4 [facility] Comment on above: Performed By: #### A DIFF, GFR, A1C, CBC, CMP, LIPID, VIDH, [id number], ANEU #### [address] [address] #### PTH #### [place] [address] CBCon 06-09-2024 Erythrocyte distribution width (RBC) [Ratio] 13.5 % Normal 11.5-15.5 [facility] Comment on above: Performed By: #### A DIFF, GFR, A1C, CBC, CMP, LIPID, VIDH, [id number], ANEU #### [address] [address] #### PTH #### [address] [address] Hematocrit (Bld) [Volume fraction] 38.9 % Low 40.0-52.0 [facility] Comment on above: Performed By: #### A DIFF, GFR, A1C, CBC, CMP, LIPID, VIDH, [id number], ANEU #### [place] [address] #### PTH #### [place] [address] Hgb 13.3 G/dL Normal 13.0-17.5 [facility] Comment on above: Performed By: #### A DIFF, GFR, A1C, CBC, CMP, LIPID, VIDH, [id number], ANEU #### [address] [address] #### PTH #### [address] [address] MCH (RBC) [Entitic mass] 34.6 pg High 27.0-33.0 [facility] Comment on above: Performed By: #### A DIFF, GFR, A1C, CBC, CMP, LIPID, VIDH, [id number], ANEU #### [place] [address] #### PTH #### [place] [address] MCHC 34.2 G/dL Normal 32.0-36.0 [facility] Comment on above: Performed By: #### A DIFF, GFR, A1C, CBC, CMP, LIPID, VIDH, [id number], ANEU #### [address] [address] #### PTH #### [address] [address] MCV (RBC) [Entitic vol] 101.2 fL High 81.0-100.0 [facility] Comment on above: Performed By: #### A DIFF, GFR, A1C, CBC, CMP, LIPID, VIDH, [id number], ANEU #### [address] [address] #### PTH #### [place] [address] Platelet 145 10 3/mcL Low 150-450 [facility] Comment on above: Performed By: #### A DIFF, GFR, A1C, CBC, CMP, LIPID, VIDH, [id number], ANEU #### [place] [address] #### PTH #### [place] [address] Platelet mean volume (Bld) [Entitic vol] 7.0 fL Normal 6.4-10.5 [facility] Comment on above: Performed By: #### A DIFF, GFR, A1C, CBC, CMP, LIPID, VIDH, [id number], ANEU #### [place] [address] #### PTH #### [place] [address] RBC 3.84 10 6/mcL Low 4.50-6.00 [facility] Comment on above: Performed By: #### A DIFF, GFR, A1C, CBC, CMP, LIPID, VIDH, [id number], ANEU #### [place] [address] #### PTH #### [place] [address] WBC 4.0 10 3/mcL Low 4.5-10.8 [facility] Comment on above: Performed By: #### A DIFF, GFR, A1C, CBC, CMP, LIPID, VIDH, [id number], ANEU #### [place] [address] #### PTH #### [address] [address] CMPon 06-09-2024 Albumin Level 4.0 G/dL Normal 3.4-4.8 [facility] Comment on above: Performed By: #### A DIFF, GFR, A1C, CBC, CMP, LIPID, VIDH, [id number], ANEU #### [address] [address] #### PTH #### [address] [address] Albumin/Globulin [Mass ratio] 1.5 {ratio} Normal 1.1-2.5 [facility] Comment on above: Performed By: #### A DIFF, GFR, A1C, CBC, CMP, LIPID, VIDH, [id number], ANEU #### [address] [address] #### PTH #### [address] [address] ALP [Catalytic activity/Vol] 81 U/L Normal 40-135 [facility] Comment on above: Performed By: #### A DIFF, GFR, A1C, CBC, CMP, LIPID, VIDH, [id number], ANEU #### [address] [address] #### PTH #### [address] [address] ALT [Catalytic activity/Vol] 24 U/L Normal 16-63 [facility] Comment on above: Performed By: #### A DIFF, GFR, A1C, CBC, CMP, LIPID, VIDH, [id number], ANEU #### [address] [address] #### PTH #### [address] [address] AST [Catalytic activity/Vol] 15 U/L Normal 10-40 [facility] Comment on above: Performed By: #### A DIFF, GFR, A1C, CBC, CMP, LIPID, VIDH, [id number], ANEU #### [address] [address] #### PTH #### [address] [address] Bili Total 0.7 mg/dL Normal 0.2-1.0 [facility] Comment on above: Result Comment: Use of this assay is not recommended for patients undergoing treatment with eltrombopag due to the potential for falsely elevated results. Performed By: #### A DIFF, GFR, A1C, CBC, CMP, LIPID, VIDH, [id number], ANEU #### [address] [address] #### PTH #### [address] [address] BUN/Creatinine Ratio 13 ratio Normal 7-27 [facility] Comment on above: Performed By: #### A DIFF, GFR, A1C, CBC, CMP, LIPID, VIDH, [id number], ANEU #### [address] [address] #### PTH #### [address] [address] Calcium [Mass/Vol] 9.5 mg/dL Normal 8.4-10.2 [facility] Comment on above: Performed By: #### A DIFF, GFR, A1C, CBC, CMP, LIPID, VIDH, [id number], ANEU #### [address] [address] #### PTH #### [address] [address] Chloride [Moles/Vol] 105 mmol/L Normal 98-107 [facility] Comment on above: Performed By: #### A DIFF, GFR, A1C, CBC, CMP, LIPID, VIDH, [id number], ANEU #### [address] [address] #### PTH #### [address] [address] CO2 [Moles/Vol] 28 mmol/L Normal 23-31 [facility] Comment on above: Performed By: #### A DIFF, GFR, A1C, CBC, CMP, LIPID, VIDH, [id number], ANEU #### [address] [address] #### PTH #### [address] [address] Creatinine [Mass/Vol] 2.06 mg/dL High 0.70-1.30 [facility] Comment on above: Result Comment: Test ing performed on Siemens Dimension EXL analyzer using a modified kinetic Nathalie technique. Performed By: #### A DIFF, GFR, A1C, CBC, CMP, LIPID, VIDH, [id number], ANEU #### [address] [address] #### PTH #### [address] [address] Electrolyte Balance 9.0 mEq/L Normal 4.0-15.0 [facility] Comment on above: Performed By: #### A DIFF, GFR, A1C, CBC, CMP, LIPID, VIDH, [id number], ANEU #### [place] [address] #### PTH #### [address] [address] Globulin 2.7 G/dL Normal [facility] Comment on above: Performed By: #### A DIFF, GFR, A1C, CBC, CMP, LIPID, VIDH, [id number], ANEU #### [address] [address] #### PTH #### [address] [address] Glucose [Mass/Vol] 82 mg/dL Low 83-110 [facility] Comment on above: Performed By: #### A DIFF, GFR, A1C, CBC, CMP, LIPID, VIDH, [id number], ANEU #### [address] [address] #### PTH #### [address] [address] Potassium [Moles/Vol] 4.6 mmol/L Normal 3.5-5.1 [facility] Comment on above: Performed By: #### A DIFF, GFR, A1C, CBC, CMP, LIPID, VIDH, [id number], ANEU #### [address] [address] #### PTH #### [address] [address] Sodium [Moles/Vol] 142 mmol/L Normal 136-145 [facility] Comment on above: Performed By: #### A DIFF, GFR, A1C, CBC, CMP, LIPID, VIDH, [id number], ANEU #### [address] [address] #### PTH #### [address] [address] Total Protein 6.7 G/dL Normal 6.4-8.2 [facility] Comment on above: Performed By: #### A DIFF, GFR, A1C, CBC, CMP, LIPID, VIDH, [id number], ANEU #### [address] [id number] #### PTH #### [address] [address] Urea nitrogen [Mass/Vol] 27 mg/dL High 7-18 [facility] Comment on above: Performed By: #### A DIFF, GFR, A1C, CBC, CMP, LIPID, VIDH, [id number], ANEU #### [address] [address] #### PTH #### [address] [address] LABORATORYOrdered By: LABCOR P CONTRIBUTOR_SYSTEM on 06-09-2024 [...] any other population of men. Performed At: [facility] [id number] Malaika Killian PhD Ph:[phone] PSA Free (LC) 0.79 ng/mL Invalid Interpretation [...] calculated value from Hemoglobin A1C and is manufacturing sales representative of the average blood glucose level [...] 06-09-2024 Cholesterol [Mass/Vol] 169 mg/dL Normal 0-200 [facility] Comment on above: Result Comment: Chol esterol Reference Interval: Less than 200 Desirable 200-239 Borderline high risk 240 and above High risk Performed By: #### A DIFF, GFR, A1C, CBC, CMP, LIPID, VIDH, [id number], ANEU #### [address] [address] #### PTH #### [address] [address] Cholesterol in HDL [Mass/Vol] 50 mg/dL Normal 40-60 [facility] Comment on above: Performed By: #### A DIFF, GFR, A1C, CBC, CMP, LIPID, VIDH, [id number], ANEU #### [address] [address] #### PTH #### [address] [address] Cholesterol in LDL [Mass/Vol] 96 mg/dL Normal 0-130 [facility] Comment on above: Performed By: #### A DIFF, GFR, A1C, CBC, CMP, LIPID, VIDH, [id number], ANEU #### [address] [address] #### PTH #### [address] [address] Triglyceride [Mass/Vol] 116 mg/dL Normal 0-150 [facility] Comment on above: Result Comment: Trig lyceride Reference Interval: Less than 150 Normal 150-199 Borderline high risk 200-499 High risk 500 or higher Very high risk Performed By: #### A DIFF, GFR, A1C, CBC, CMP, LIPID, VIDH, [id number], ANEU #### [address] [address] #### PTH #### [address] [address] PTHon 06-09-2024 PTH, Intact 45.9 pg/mL Normal 18.5-88.0 [facility] Comment on above: Performed By: #### A DIFF, GFR, A1C, CBC, CMP, LIPID, VIDH, [id number], ANEU #### [address] [address] #### PTH #### [address] [address] VIDHon 06-09-2024 Vit. D 25-Hydroxy 45.1 ng/mL Normal [facility] Comment on above: Result Comment: Inte rpretive Values Based on Total 25(OH) Vitamin D: Deficient <20 ng/mL Insufficient 20 - <30 ng/mL Sufficient 30-100 ng/mL Performed By: #### A DIFF, GFR, A1C, CBC, CMP, LIPID, VIDH, [id number], ANEU #### [id number] [place], [place] [address] #### PTH #### [address] [address] LABORATORYOrdered By: SYSTEM SYSTEM on 02-18-2024 Prostate specific Ag [Mass/Vol] 6.15 ng/mL High 0.00 - 4.00 ng/mL AO ADM SS PSAon 02-18-2024 Prostate Specific Antigen 6.15 ng/mL High 0.00-4.00 [facility] ([place]) Comment on above: Performed By: #### C MP, GFR, CBC, MG, ADIFF, ANEU #### [address] [address] .Auto Diffon 12-10-2023 Basophil, Absolute 0.0 10 3/mcL Normal 0.0-0.2 [facility] ([place]) Comment on above: Performed By: #### C MP, GFR, CBC, MG, ADIFF, ANEU #### [address] [address] Basophils/100 WBC (Bld) 0.3 % Normal 0.0-2.5 [facility] ([place]) Comment on above: Performed By: #### C MP, GFR, CBC, MG, ADIFF, ANEU #### [address] [address] Eosinophil, Absolute 0.2 10 3/mcL Normal 0.0-0.4 [facility] ([place]) Comment on above: Performed By: #### C MP, GFR, CBC, MG, ADIFF, ANEU #### [address] [address] Eosinophils/100 WBC (Bld) 4.9 % Normal 0.0-7.0 [facility] ([place]) Comment on above: Performed By: #### C MP, GFR, CBC, MG, ADIFF, ANEU #### [address] [address] Lymphocyte, Absolute 0.9 10 3/mcL Normal 0.8-3.9 [facility] ([place]) Comment on above: Performed By: #### C MP, GFR, CBC, MG, ADIFF, ANEU #### [address] [address] Lymphocytes/100 WBC (Bld) 24.1 % Normal 10.0-50.0 [facility] ([place] Comment on above: Performed By: #### C MP, GFR, CBC, MG, ADIFF, ANEU #### [address] [address] Monocyte, Absolute 0.4 10 3/mcL Normal 0.2-1.0 [facility] ([place]) Comment on above: Performed By: #### C MP, GFR, CBC, MG, ADIFF, ANEU #### [address] [address] Monocytes/100 WBC (Bld) 10.8 % Normal 1.7-13.0 [facility] ([place]) Comment on above: Performed By: #### C MP, GFR, CBC, MG, ADIFF, ANEU #### [address] [address] Neutrophils/100 WBC (Bld) 59.9 % Normal 37.0-80.0 [facility] ([place]) Comment on above: Performed By: #### C MP, GFR, CBC, MG, ADIFF, ANEU #### [address] [address] .GFRon 12-10-2023 GFR 48 ml/min/1.73sqm Normal [facility] ([place]) Comment on above: Result Comment: GFR Population [...] MP, GFR, CBC, MG, ADIFF, ANEU #### [address] [address] GFR Non- 39 ml/min/1.73sqm Normal [facility] ([place] Comment on above: Result Comment: GFR Population [...] MP, GFR, CBC, MG, ADIFF, ANEU #### [place] [address] .NEUABSon 12-10-2023 Neutrophil, Absolute 2.3 10 3/mcL Low 2.9-6.2 [facility] ([place]) Comment on above: Performed By: #### C MP, GFR, CBC, MG, ADIFF, ANEU #### [place] [address] A1Con 12-10-2023 HbA1c (Bld) [Mass fraction] 5.2 % Normal 4.3-6.4 [facility] ([place] Comment on above: Performed By: #### C MP, GFR, CBC, MG, ADIFF, ANEU #### [place] [address] CBCon 12-10-2023 Erythrocyte distribution width (RBC) [Ratio] 13.8 % Normal 11.5-14.5 [facility] ([place] Comment on above: Performed By: #### C MP, GFR, CBC, MG, ADIFF, ANEU #### [place] [address] Hematocrit (Bld) [Volume fraction] 37.0 % Low 42.0-52.0 [facility] ([place] Comment on above: Performed By: #### C MP, GFR, CBC, MG, ADIFF, ANEU #### [place] [address] Hgb 12.8 G/dL Low 14.0-18.0 [facility] ([place] Comment on above: Performed By: #### C MP, GFR, CBC, MG, ADIFF, ANEU #### [place] [address] MCH (RBC) [Entitic mass] 35.2 pg High 27.0-31.2 [facility] ([place] Comment on above: Performed By: #### C MP, GFR, CBC, MG, ADIFF, ANEU #### [place] [address] MCHC 34.7 G/dL Normal 31.8-35.4 [facility] ([place] Comment on above: Performed By: #### C MP, GFR, CBC, MG, ADIFF, ANEU #### [place] [address] MCV (RBC) [Entitic vol] 101.5 fL High 80.0-94.0 [facility] ([place]) Comment on above: Performed By: #### C MP, GFR, CBC, MG, ADIFF, ANEU #### [place] [address] Platelet 142 10 3/mcL Normal 130-400 [facility] ([place] Comment on above: Performed By: #### C MP, GFR, CBC, MG, ADIFF, ANEU #### [place] [address] Platelet mean volume (Bld) [Entitic vol] 7.2 fL Low 7.4-10.4 [facility] ([place] Comment on above: Performed By: #### C MP, GFR, CBC, MG, ADIFF, ANEU #### [address] [address] RBC 3.65 10 6/mcL Low 4.04-6.13 [facility] ([place] Comment on above: Performed By: #### C MP, GFR, CBC, MG, ADIFF, ANEU #### [address] [address] WBC 3.8 10 3/mcL Low 4.6-10.8 [facility] ([place] Comment on above: Performed By: #### C MP, GFR, CBC, MG, ADIFF, ANEU #### [address] [address] CMPon 12-10-2023 Albumin Level 3.9 G/dL Normal 3.4-4.8 [facility] ([place] Comment on above: Performed By: #### C MP, GFR, CBC, MG, ADIFF, ANEU #### [place] [id number] Albumin/Globulin [Mass ratio] 1.3 {ratio} Normal 1.1-2.5 [facility] ([place] Comment on above: Performed By: #### C MP, GFR, CBC, MG, ADIFF, ANEU #### [place] [address] ALP [Catalytic activity/Vol] 74 U/L Normal 40-135 [facility] ([place] Comment on above: Performed By: #### C MP, GFR, CBC, MG, ADIFF, ANEU #### [place] [id number] ALT [Catalytic activity/Vol] 29 U/L Normal 16-63 [facility] ([place] Comment on above: Performed By: #### C MP, GFR, CBC, MG, ADIFF, ANEU #### [address] [place] [id number] AST [Catalytic activity/Vol] 15 U/L Normal 10-40 [facility] ([place] Comment on above: Performed By: #### C MP, GFR, CBC, MG, ADIFF, ANEU #### [address] [id number] Bili Total 0.6 mg/dL Normal 0.2-1.0 [facility] ([place]) Comment on above: Result Comment: Use of this assay is not recommended for patients undergoing treatment with eltrombopag due to the potential for falsely elevated results. Performed By: #### C MP, GFR, CBC, MG, ADIFF, ANEU #### [address] [address] BUN/Creatinine Ratio 17 ratio Normal 7-27 [facility] ([place]) Comment on above: Performed By: #### C MP, GFR, CBC, MG, ADIFF, ANEU #### [address] [address] Calcium [Mass/Vol] 8.6 mg/dL Normal 8.4-10.2 [facility] ([place]) Comment on above: Performed By: #### C MP, GFR, CBC, MG, ADIFF, ANEU #### [address] [address] Chloride [Moles/Vol] 105 mmol/L Normal 98-107 [facility] ([place]) Comment on above: Performed By: #### C MP, GFR, CBC, MG, ADIFF, ANEU #### [address] [address] CO2 [Moles/Vol] 27 mmol/L Normal 23-31 [facility] ([place] Comment on above: Performed By: #### C MP, GFR, CBC, MG, ADIFF, ANEU #### [address] [address] Creatinine [Mass/Vol] 1.70 mg/dL High 0.70-1.30 [facility] ([place]) Comment on above: Performed By: #### C MP, GFR, CBC, MG, ADIFF, ANEU #### [place] [id number] Electrolyte Balance 9.0 mEq/L Normal 4.0-15.0 [facility] ([place]) Comment on above: Performed By: #### C MP, GFR, CBC, MG, ADIFF, ANEU #### [address] [address] Globulin 2.9 G/dL Normal [facility] ([place] Comment on above: Performed By: #### C MP, GFR, CBC, MG, ADIFF, ANEU #### [address] [address] Glucose [Mass/Vol] 92 mg/dL Normal 83-110 [facility] ([place] Comment on above: Performed By: #### C MP, GFR, CBC, MG, ADIFF, ANEU #### [address] [address] Potassium [Moles/Vol] 4.1 mmol/L Normal 3.5-5.1 [facility] ([place] Comment on above: Performed By: #### C MP, GFR, CBC, MG, ADIFF, ANEU #### [address] [address] Sodium [Moles/Vol] 141 mmol/L Normal 136-145 [facility] ([place] Comment on above: Performed By: #### C MP, GFR, CBC, MG, ADIFF, ANEU #### [address] [address] Total Protein 6.8 G/dL Normal 6.4-8.2 [facility] ([place] Comment on above: Performed By: #### C MP, GFR, CBC, MG, ADIFF, ANEU #### [address] [address] Urea nitrogen [Mass/Vol] 29 mg/dL High 7-18 [facility] ([place] Comment on above: Performed By: #### C MP, GFR, CBC, MG, ADIFF, ANEU #### [address] [address] LABORATORYOrdered By: SYSTEM SYSTEM on 12-10-2023 25-hydroxyvitamin [...] 12-10-2023 Cholesterol [Mass/Vol] 167 mg/dL Normal 0-200 [facility] ([place]) Comment on above: Result Comment: Chol esterol Reference Interval: Less than 200 Desirable 200-239 Borderline high risk 240 and above High risk Performed By: #### C MP, GFR, CBC, MG, ADIFF, ANEU #### [address] [address] Cholesterol in HDL [Mass/Vol] 47 mg/dL Normal 40-60 [facility] ([place] Comment on above: Performed By: #### C MP, GFR, CBC, MG, ADIFF, ANEU #### [address] [address] Cholesterol in LDL [Mass/Vol] 97 mg/dL Normal 0-130 [facility] ([place] Comment on above: Performed By: #### C MP, GFR, CBC, MG, ADIFF, ANEU #### [address] [address] Triglyceride [Mass/Vol] 113 mg/dL Normal 0-150 [facility] ([place] Comment on above: Result Comment: Trig lyceride Reference Interval: Less than 150 Normal 150-199 Borderline high risk 200-499 High risk 500 or higher Very high risk Performed By: #### C MP, GFR, CBC, MG, ADIFF, ANEU #### [address] [address] MALBRon 12-10-2023 U Creatinine 144.7 mg/dL Normal 39.0-259.0 [facility] ([place] Comment on above: Performed By: #### C MP, GFR, CBC, MG, ADIFF, ANEU #### [place] [address] U Microalb 5440 mcg/dL Normal [facility] ([place]) Comment on above: Performed By: #### C MP, GFR, CBC, MG, ADIFF, ANEU #### [place] [address] U Ratio Alb/Cre 38 mcg/mg High 0-30 [facility] ([place] Comment on above: Performed By: #### C MP, GFR, CBC, MG, ADIFF, ANEU #### [place] [address] PSAon 12-10-2023 Prostate Specific Antigen 5.24 ng/mL High 0.00-4.00 [facility] ([place]) Comment on above: Performed By: #### C MP, GFR, CBC, MG, ADIFF, ANEU #### [place] [address] PTHon 12-10-2023 PTH, Intact 62.4 pg/mL Normal 18.5-88.0 [facility] ([place]) Comment on above: Performed By: #### C MP, GFR, CBC, MG, ADIFF, ANEU #### [place] [address] VIDHon 12-10-2023 Vit. D 25-Hydroxy 29.1 ng/mL Normal [facility] ([place]) Comment on above: Result Comment: Inte rpretive Values Based on Total 25(OH) Vitamin D: Deficient <20 ng/mL Insufficient 20 - <30 ng/mL Sufficient 30-100 ng/mL Performed By: #### C MP, GFR, CBC, MG, ADIFF, ANEU #### [place] [address] .GFRon 08-10-2023 GFR 46 ml/min/1.73sqm Normal [facility] ([place]) Comment on above: Result Comment: GFR [...] MP, GFR, CBC, MG, ADIFF, ANEU #### [address] [address] GFR Non- 38 ml/min/1.73sqm Normal [facility] ([place] Comment on above: Result Comment: GFR Population [...] MP, GFR, CBC, MG, ADIFF, ANEU #### [address] [address] [facility] BUN/Creatinine Ratio 14 ratio Normal 01-15 [facility] ([place]) Comment on above: Performed By: #### C MP, GFR, CBC, MG, ADIFF, ANEU #### [address] [address] Calcium [Mass/Vol] 9.1 mg/dL Normal 8.4-10.2 [facility] ([place]) Comment on above: Performed By: #### C MP, GFR, CBC, MG, ADIFF, ANEU #### [address] [address] Chloride [Moles/Vol] 105 mmol/L Normal 98-107 [facility] ([place]) Comment on above: Performed By: #### C MP, GFR, CBC, MG, ADIFF, ANEU #### [address] [address] CO2 [Moles/Vol] 28 mmol/L Normal 23-31 [facility] ([place] Comment on above: Performed By: #### C MP, GFR, CBC, MG, ADIFF, ANEU #### [address] [address] Creatinine [Mass/Vol] 1.76 mg/dL High 0.70-1.30 [facility] ([place] Comment on above: Performed By: #### C MP, GFR, CBC, MG, ADIFF, ANEU #### [address] [address] Electrolyte Balance 10.0 mEq/L Normal 4.0-15.0 [facility] ([place]) Comment on above: Performed By: #### C MP, GFR, CBC, MG, ADIFF, ANEU #### [address] [address] Glucose [Mass/Vol] 105 mg/dL Normal 83-110 [facility] ([place]) Comment on above: Performed By: #### C MP, GFR, CBC, MG, ADIFF, ANEU #### [address] [address] Potassium [Moles/Vol] 4.1 mmol/L Normal 3.5-5.1 [facility] ([place] Comment on above: Performed By: #### C MP, GFR, CBC, MG, ADIFF, ANEU #### [address] [address] Sodium [Moles/Vol] 143 mmol/L Normal 136-145 [facility] ([place] Comment on above: Performed By: #### C MP, GFR, CBC, MG, ADIFF, ANEU #### [address] [address] Urea nitrogen [Mass/Vol] 25 mg/dL High 7-18 [facility] ([place] Comment on above: Performed By: #### C MP, GFR, CBC, MG, ADIFF, ANEU #### [address] [address] LABORATORYOrdered By: SYSTEM SYSTEM on 08-10-2023 Calcium [...] Basophil, Absolute 0.0 10 3/mcL Normal 0.0-0.2 [facility] ([place]) Comment on above: Performed By: #### C MP, GFR, CBC, MG, ADIFF, ANEU #### [address] [address] Basophils/100 WBC (Bld) 0.4 % Normal 0.0-2.5 [facility] ([place]) Comment on above: Performed By: #### C MP, GFR, CBC, MG, ADIFF, ANEU #### [address] [address] Eosinophil, Absolute 0.3 10 3/mcL Normal 0.0-0.4 [facility] ([place]) Comment on above: Performed By: #### C MP, GFR, CBC, MG, ADIFF, ANEU #### [address] [address] Eosinophils/100 WBC (Bld) 6.2 % Normal 0.0-7.0 [facility] ([place] Comment on above: Performed By: #### C MP, GFR, CBC, MG, ADIFF, ANEU #### [address] [address] Lymphocyte, Absolute 0.9 10 3/mcL Normal 0.8-3.9 [facility] ([place]) Comment on above: Performed By: #### C MP, GFR, CBC, MG, ADIFF, ANEU #### [address] [address] Lymphocytes/100 WBC (Bld) 19.0 % Normal 10.0-50.0 [facility] ([place]) Comment on above: Performed By: #### C MP, GFR, CBC, MG, ADIFF, ANEU #### [address] [address] Monocyte, Absolute 0.3 10 3/mcL Normal 0.2-1.0 [facility] ([place]) Comment on above: Performed By: #### C MP, GFR, CBC, MG, ADIFF, ANEU #### [address] [address] Monocytes/100 WBC (Bld) 6.7 % Normal 1.7-13.0 [facility] ([place]) Comment on above: Performed By: #### C MP, GFR, CBC, MG, ADIFF, ANEU #### [address] [address] Neutrophils/100 WBC (Bld) 67.7 % Normal 37.0-80.0 [facility] ([place] Comment on above: Performed By: #### C MP, GFR, CBC, MG, ADIFF, ANEU #### [address] [address] .GFRon 07-30-2023 GFR Non- 32 ml/min/1.73sqm Normal [facility] ([place]) Comment on above: Result Comment: GFR [...] MP, GFR, CBC, MG, ADIFF, ANEU #### [address] [address] GFR 38 ml/min/1.73sqm Normal [facility] ([place] Comment on above: Result Comment: GFR Population [...] MP, GFR, CBC, MG, ADIFF, ANEU #### [place] [address] .NEUABSon 07-30-2023 Neutrophil, Absolute 3.2 10 3/mcL Normal 2.9-6.2 [facility] ([place]) Comment on above: Performed By: #### C MP, GFR, CBC, MG, ADIFF, ANEU #### [address] [address] BMPon 07-30-2023 BUN/Creatinine Ratio 17 ratio Normal 7-27 [facility] ([place]) Comment on above: Order Comment: TO BE DONE 07/21-09/1230-DAYS S/P TAVR Performed By: #### C MP, GFR, CBC, MG, ADIFF, ANEU #### [address] [address] Calcium [Mass/Vol] 9.4 mg/dL Normal 8.4-10.2 [facility] ([place]) Comment on above: Order Comment: TO BE DONE 07/21-09/1230-DAYS S/P TAVR Performed By: #### C MP, GFR, CBC, MG, ADIFF, ANEU #### [address] [address] Chloride [Moles/Vol] 105 mmol/L Normal 98-107 [facility] ([place]) Comment on above: Order Comment: TO BE DONE 07/21-09/1230-DAYS S/P TAVR Performed By: #### C MP, GFR, CBC, MG, ADIFF, ANEU #### [address] [address] CO2 [Moles/Vol] 26 mmol/L Normal 23-31 [facility] ([place] Comment on above: Order Comment: TO BE DONE 07/21-09/1230-DAYS S/P TAVR Performed By: #### C MP, GFR, CBC, MG, ADIFF, ANEU #### [address] [address] Creatinine [Mass/Vol] 2.06 mg/dL High 0.70-1.30 [facility] ([place] Comment on above: Order Comment: TO BE DONE 07/21-09/1230-DAYS S/P TAVR Performed By: #### C MP, GFR, CBC, MG, ADIFF, ANEU #### [address] [address] Electrolyte Balance 10.0 mEq/L Normal 4.0-15.0 [facility] ([place]) Comment on above: Order Comment: TO BE DONE 07/21-09/1230-DAYS S/P TAVR Performed By: #### C MP, GFR, CBC, MG, ADIFF, ANEU #### [address] [address] Glucose [Mass/Vol] 142 mg/dL High 83-110 [facility] ([place]) Comment on above: Order Comment: TO BE DONE 07/21-09/1230-DAYS S/P TAVR Performed By: #### C MP, GFR, CBC, MG, ADIFF, ANEU #### [address] [address] Potassium [Moles/Vol] 4.5 mmol/L Normal 3.5-5.1 [facility] ([place] Comment on above: Order Comment: TO BE DONE 07/21-09/1230-DAYS S/P TAVR Performed By: #### C MP, GFR, CBC, MG, ADIFF, ANEU #### [address] [address] Sodium [Moles/Vol] 141 mmol/L Normal 136-145 [facility] ([place] Comment on above: Order Comment: TO BE DONE 07/21-09/1230-DAYS S/P TAVR Performed By: #### C MP, GFR, CBC, MG, ADIFF, ANEU #### [place] [id number] Urea nitrogen [Mass/Vol] 36 mg/dL High 7-18 [facility] ([place] Comment on above: Order Comment: TO BE DONE 07/21-09/1230-DAYS S/P TAVR Performed By: #### C MP, GFR, CBC, MG, ADIFF, ANEU #### [address] [address] CBCon 07-30-2023 Erythrocyte distribution width (RBC) [Ratio] 13.3 % Normal 11.5-14.5 [facility] ([place] Comment on above: Order Comment: TO BE DONE 07/21-09/1230-DAYS S/P TAVR Performed By: #### C MP, GFR, CBC, MG, ADIFF, ANEU #### [address] [address] Hematocrit (Bld) [Volume fraction] 35.8 % Low 42.0-52.0 [facility] ([place] Comment on above: Order Comment: TO BE DONE 07/21-09/1230-DAYS S/P TAVR Performed By: #### C MP, GFR, CBC, MG, ADIFF, ANEU #### [place] [address] Hgb 12.6 G/dL Low 14.0-18.0 [facility] ([place] Comment on above: Order Comment: TO BE DONE 07/21-09/1230-DAYS S/P TAVR Performed By: #### C MP, GFR, CBC, MG, ADIFF, ANEU #### [place] [address] MCH (RBC) [Entitic mass] 34.2 pg High 27.0-31.2 [facility] ([place] Comment on above: Order Comment: TO BE DONE 07/21-09/1230-DAYS S/P TAVR Performed By: #### C MP, GFR, CBC, MG, ADIFF, ANEU #### [place] [address] MCHC 35.1 G/dL Normal 31.8-35.4 [facility] ([place] Comment on above: Order Comment: TO BE DONE 07/21-09/1230-DAYS S/P TAVR Performed By: #### C MP, GFR, CBC, MG, ADIFF, ANEU #### [place] [address] MCV (RBC) [Entitic vol] 97.5 fL High 80.0-94.0 [facility] ([place] Comment on above: Order Comment: TO BE DONE 07/21-09/1230-DAYS S/P TAVR Performed By: #### C MP, GFR, CBC, MG, ADIFF, ANEU #### [place] [address] Platelet 129 10 3/mcL Low 130-400 [facility] ([place] Comment on above: Order Comment: TO BE DONE 07/21-09/1230-DAYS S/P TAVR Performed By: #### C MP, GFR, CBC, MG, ADIFF, ANEU #### [place] [address] Platelet mean volume (Bld) [Entitic vol] 7.1 fL Low 7.4-10.4 [facility] ([place] Comment on above: Order Comment: TO BE DONE 07/21-09/1230-DAYS S/P TAVR Performed By: #### C MP, GFR, CBC, MG, ADIFF, ANEU #### [address] [address] RBC 3.67 10 6/mcL Low 4.04-6.13 [facility] ([place] Comment on above: Order Comment: TO BE DONE 07/21-09/1230-DAYS S/P TAVR Performed By: #### C MP, GFR, CBC, MG, ADIFF, ANEU #### [address] [address] WBC 4.8 10 3/mcL Normal 4.6-10.8 [facility] ([place] Comment on above: Order Comment: TO BE DONE 07/21-09/1230-DAYS S/P TAVR Performed By: #### C MP, GFR, CBC, MG, ADIFF, ANEU #### [address] [address] .Auto Diffon 07-01-2023 Basophil, Absolute 0.0 10 3/mcL Normal 0.0-0.3 [facility] ([place]) Comment on above: Performed By: #### C MP, GFR, CBC, MG, ADIFF, ANEU #### [address] [address] Basophils/100 WBC (Bld) 0.1 % Normal 0.0-2.5 [facility] ([place] Comment on above: Performed By: #### C MP, GFR, CBC, MG, ADIFF, ANEU #### [address] [address] Eosinophil, Absolute 0.1 10 3/mcL Normal 0.0-0.7 [facility] ([place]) Comment on above: Performed By: #### C MP, GFR, CBC, MG, ADIFF, ANEU #### [address] [address] Eosinophils/100 WBC (Bld) 2.6 % Normal 0.0-6.0 [facility] ([place] Comment on above: Performed By: #### C MP, GFR, CBC, MG, ADIFF, ANEU #### [address] [address] Lymphocyte, Absolute 0.7 10 3/mcL Low 0.9-4.3 [facility] ([place]) Comment on above: Performed By: #### C MP, GFR, CBC, MG, ADIFF, ANEU #### [address] [address] Lymphocytes/100 WBC (Bld) 11.9 % Low 20.0-40.0 [facility] ([place] Comment on above: Performed By: #### C MP, GFR, CBC, MG, ADIFF, ANEU #### [address] [address] Monocyte, Absolute 0.7 10 3/mcL Normal 0.1-1.4 [facility] ([place]) Comment on above: Performed By: #### C MP, GFR, CBC, MG, ADIFF, ANEU #### [address] [address] Monocytes/100 WBC (Bld) 11.9 % Normal 2.0-13.0 [facility] ([place] Comment on above: Performed By: #### C MP, GFR, CBC, MG, ADIFF, ANEU #### [address] [address] Neutrophils/100 WBC (Bld) 73.5 % Normal 50.0-75.0 [facility] ([place] Comment on above: Performed By: #### C MP, GFR, CBC, MG, ADIFF, ANEU #### [address] [address] .GFRon 07-01-2023 GFR 59 ml/min/1.73sqm Normal [facility] ([place] Comment on above: Result Comment: GFR Population [...] MP, GFR, CBC, MG, ADIFF, ANEU #### [place] [address] GFR Non- 49 ml/min/1.73sqm Normal [facility] ([place] Comment on above: Result Comment: GFR Population [...] MP, GFR, CBC, MG, ADIFF, ANEU #### [place] [address] .NEUABSon 07-01-2023 Neutrophil, Absolute 4.1 10 3/mcL Normal 2.3-8.1 [facility] ([place]) Comment on above: Performed By: #### C MP, GFR, CBC, MG, ADIFF, ANEU #### [address] [address] BMPon 07-01-2023 BUN/Creatinine Ratio 13.5 ratio Normal 10.0-22.0 [facility] ([place]) Comment on above: Performed By: #### C MP, GFR, CBC, MG, ADIFF, ANEU #### [address] [address] Calcium [Mass/Vol] 9.5 mg/dL Normal 8.7-10.4 [facility] ([place] Comment on above: Performed By: #### C MP, GFR, CBC, MG, ADIFF, ANEU #### [address] [address] Chloride [Moles/Vol] 107 mmol/L Normal 98-110 [facility] ([place]) Comment on above: Performed By: #### C MP, GFR, CBC, MG, ADIFF, ANEU #### [address] [address] CO2 [Moles/Vol] 26 mmol/L Normal 22-32 [facility] ([place] Comment on above: Performed By: #### C MP, GFR, CBC, MG, ADIFF, ANEU #### [address] [address] Creatinine [Mass/Vol] 1.41 mg/dL High 0.60-1.40 [facility] ([place]) Comment on above: Performed By: #### C MP, GFR, CBC, MG, ADIFF, ANEU #### [address] [address] Electrolyte Balance 6.0 mEq/L Normal 4.0-15.0 [facility] ([place]) Comment on above: Performed By: #### C MP, GFR, CBC, MG, ADIFF, ANEU #### [address] [address] Glucose [Mass/Vol] 101 mg/dL Normal 82-115 [facility] ([place]) Comment on above: Performed By: #### C MP, GFR, CBC, MG, ADIFF, ANEU #### [address] [address] Potassium [Moles/Vol] 4.2 mmol/L Normal 3.5-5.0 [facility] ([place]) Comment on above: Result Comment: Spec imen slightly hemolyzed. Performed By: #### C MP, GFR, CBC, MG, ADIFF, ANEU #### [address] [address] Sodium [Moles/Vol] 139 mmol/L Normal 136-145 [facility] ([place]) Comment on above: Performed By: #### C MP, GFR, CBC, MG, ADIFF, ANEU #### [place] [address] Urea nitrogen [Mass/Vol] 19.0 mg/dL Normal 8.0-22.0 [facility] ([place]) Comment on above: Performed By: #### C MP, GFR, CBC, MG, ADIFF, ANEU #### [place] [address] CBCon 07-01-2023 Erythrocyte distribution width (RBC) [Ratio] 13.9 % Normal 11.5-15.5 [facility] ([place]) Comment on above: Performed By: #### C MP, GFR, CBC, MG, ADIFF, ANEU #### [place] [address] Hematocrit (Bld) [Volume fraction] 35.5 % Low 40.0-52.0 [facility] ([place] Comment on above: Performed By: #### C MP, GFR, CBC, MG, ADIFF, ANEU #### [place] [address] Hgb 12.5 G/dL Low 13.0-17.5 [facility] ([place] Comment on above: Performed By: #### C MP, GFR, CBC, MG, ADIFF, ANEU #### [place] [address] MCH (RBC) [Entitic mass] 35.0 pg High 27.0-33.0 [facility] ([place] Comment on above: Performed By: #### C MP, GFR, CBC, MG, ADIFF, ANEU #### [place] [address] MCHC 35.3 G/dL Normal 32.0-36.0 [facility] ([place] Comment on above: Performed By: #### C MP, GFR, CBC, MG, ADIFF, ANEU #### [place] [address] MCV (RBC) [Entitic vol] 99.2 fL Normal 81.0-100.0 [facility] ([place]) Comment on above: Performed By: #### C MP, GFR, CBC, MG, ADIFF, ANEU #### [place] [address] Platelet 130 10 3/mcL Low 150-450 [facility] ([place]) Comment on above: Performed By: #### C MP, GFR, CBC, MG, ADIFF, ANEU #### [place] [address] Platelet mean volume (Bld) [Entitic vol] 6.9 fL Normal 6.4-10.5 [facility] ([place] Comment on above: Performed By: #### C MP, GFR, CBC, MG, ADIFF, ANEU #### [place] [address] RBC 3.58 10 6/mcL Low 4.50-6.00 [facility] ([place] Comment on above: Performed By: #### C MP, GFR, CBC, MG, ADIFF, ANEU #### [place] [address] WBC 5.5 10 3/mcL Normal 4.5-10.8 [facility] ([place] Comment on above: Performed By: #### C MP, GFR, CBC, MG, ADIFF, ANEU #### [place] [address] LABORATORYOrdered By: SYSTEM SYSTEM on 07-01-2023 Basophils [...] [Vol rate/Area] 49 ml/min/1.73sqm Invalid Interpretation Code [facility] Comment on above: Interpretive Data: GFR [...] Comment on above: Interpretive Data: Edson [employer]oren[employer] (CHEST, 1991, 102:312S-25S) recommended therapeutic range for oral anticoagulant therapy is: LOW RISK: Prophylaxis of venous thrombosis INR: 2.0-3.0 Treatment of pulmonary embolism 2.0-3.0 Prevention of systemic embolism 2.0-3.0 HIGH RISK: Mechanical prosthetic valves 2.5-3.5 PROon 07-01-2023 INR Coag (PPP) [Relative time] 1.0 {INR} Normal [facility] ([place]) Comment on above: Result Comment: [employer] (CHEST, 1991, 102:[id number]) recommended therapeutic range for oral anticoagulant therapy is: LOW RISK: Prophylaxis of venous thrombosis INR: 2.0-3.0 Treatment of pulmonary embolism 2.0-3.0 Prevention of systemic embolism 2.0-3.0 HIGH RISK: Mechanical prosthetic valves 2.5-3.5 Performed By: #### C MP, GFR, CBC, MG, ADIFF, ANEU #### [address] [address] PT Coag (PPP) [Time] 11.7 s Normal 9.0-14.2 [facility] ([place]) Comment on above: Result Comment: Effe ctive 01/04/08, Protime results may be affected by some antibiotics (i.e. Ciprofloxacin, Azithromycin, Bactrim) which may potentiate the action of oral anticoagulants, with further increases in Protime/INR. Performed By: #### C MP, GFR, CBC, MG, ADIFF, ANEU #### [address] [address] .Auto Diffon 06-30-2023 Basophil, Absolute 0.0 10 3/mcL Normal 0.0-0.3 [facility] ([place]) Comment on above: Performed By: #### C MP, GFR, CBC, MG, ADIFF, ANEU #### [address] [address] Basophils/100 WBC (Bld) 0.1 % Normal 0.0-2.5 [facility] ([place]) Comment on above: Performed By: #### C MP, GFR, CBC, MG, ADIFF, ANEU #### [address] [address] Eosinophil, Absolute 0.1 10 3/mcL Normal 0.0-0.7 [facility] ([place]) Comment on above: Performed By: #### C MP, GFR, CBC, MG, ADIFF, ANEU #### [address] [address] Eosinophils/100 WBC (Bld) 1.8 % Normal 0.0-6.0 [facility] ([place]) Comment on above: Performed By: #### C MP, GFR, CBC, MG, ADIFF, ANEU #### [address] [address] Lymphocyte, Absolute 0.6 10 3/mcL Low 0.9-4.3 [facility] ([place]) Comment on above: Performed By: #### C MP, GFR, CBC, MG, ADIFF, ANEU #### [address] [address] Lymphocytes/100 WBC (Bld) 12.6 % Low 20.0-40.0 [facility] ([place]) Comment on above: Performed By: #### C MP, GFR, CBC, MG, ADIFF, ANEU #### [address] [address] Monocyte, Absolute 0.5 10 3/mcL Normal 0.1-1.4 [facility] ([place]) Comment on above: Performed By: #### C MP, GFR, CBC, MG, ADIFF, ANEU #### [address] [address] Monocytes/100 WBC (Bld) 9.5 % Normal 2.0-13.0 [facility] ([place]) Comment on above: Performed By: #### C MP, GFR, CBC, MG, ADIFF, ANEU #### [address] [address] Neutrophils/100 WBC (Bld) 76.0 % High 50.0-75.0 [facility] ([place]) Comment on above: Performed By: #### C MP, GFR, CBC, MG, ADIFF, ANEU #### [address] [address] .GFRon 06-30-2023 GFR Non- 44 ml/min/1.73sqm Normal [facility] ([place]) Comment on above: Result Comment: GFR [...] MP, GFR, CBC, MG, ADIFF, ANEU #### [address] [address] GFR 54 ml/min/1.73sqm Normal [facility] ([place]) Comment on above: Result Comment: GFR Population [...] MP, GFR, CBC, MG, ADIFF, ANEU #### [address] [address] .NEUABSon 06-30-2023 Neutrophil, Absolute 3.8 10 3/mcL Normal 2.3-8.1 [facility] ([place]) Comment on above: Performed By: #### C MP, GFR, CBC, MG, ADIFF, ANEU #### [address] [address] ABO/Rh (Gel)on 06-30-2023 ABO/Rh Interp Positive Invalid Interpretation Code [facility] ([place] Comment on above: Performed By: #### C MP, GFR, CBC, MG, ADIFF, ANEU #### [address] [address] ABS (Gel)on 06-30-2023 ABSC Interp (Gel) Negative Normal [facility] ([place]) Comment on above: Performed By: #### C MP, GFR, CBC, MG, ADIFF, ANEU #### [address] [address] BMPon 06-30-2023 BUN/Creatinine Ratio 15.0 ratio Normal 10.0-22.0 [facility] ([place]) Comment on above: Order Comment: withi n 1/2 hour of admission to CVSICU Performed By: #### C MP, GFR, CBC, MG, ADIFF, ANEU #### [address] [address] Calcium [Mass/Vol] 9.5 mg/dL Normal 8.7-10.4 [facility] ([place]) Comment on above: Order Comment: withi n 1/2 hour of admission to CVSICU Performed By: #### C MP, GFR, CBC, MG, ADIFF, ANEU #### [address] [address] Chloride [Moles/Vol] 109 mmol/L Normal 98-110 [facility] ([place]) Comment on above: Order Comment: withi n 1/2 hour of admission to CVSICU Performed By: #### C MP, GFR, CBC, MG, ADIFF, ANEU #### [address] [address] CO2 [Moles/Vol] 29 mmol/L Normal 22-32 [facility] ([place]) Comment on above: Order Comment: withi n 1/2 hour of admission to CVSICU Performed By: #### C MP, GFR, CBC, MG, ADIFF, ANEU #### [address] [address] Creatinine [Mass/Vol] 1.53 mg/dL High 0.60-1.40 [facility] ([place]) Comment on above: Order Comment: withi n 1/2 hour of admission to CVSICU Performed By: #### C MP, GFR, CBC, MG, ADIFF, ANEU #### [address] [address] Electrolyte Balance 3.0 mEq/L Low 4.0-15.0 [facility] ([place]) Comment on above: Order Comment: withi n 1/2 hour of admission to CVSICU Performed By: #### C MP, GFR, CBC, MG, ADIFF, ANEU #### [address] [address] Glucose [Mass/Vol] 95 mg/dL Normal 82-115 [facility] ([place] Comment on above: Order Comment: withi n 1/2 hour of admission to CVSICU Performed By: #### C MP, GFR, CBC, MG, ADIFF, ANEU #### [address] [address] Potassium [Moles/Vol] 4.9 mmol/L Normal 3.5-5.0 [facility] ([place] Comment on above: Order Comment: withi n 1/2 hour of admission to CVSICU Result Comment: Spec imen slightly hemolyzed. Performed By: #### C MP, GFR, CBC, MG, ADIFF, ANEU #### [place] [address] Sodium [Moles/Vol] 141 mmol/L Normal 136-145 [facility] ([place] Comment on above: Order Comment: withi n 1/2 hour of admission to CVSICU Performed By: #### C MP, GFR, CBC, MG, ADIFF, ANEU #### [place] [id number] Urea nitrogen [Mass/Vol] 23.0 mg/dL High 8.0-22.0 [facility] ([place] Comment on above: Order Comment: withi n 1/2 hour of admission to CVSICU Performed By: #### C MP, GFR, CBC, MG, ADIFF, ANEU #### [place] [address] CBCon 06-30-2023 Erythrocyte distribution width (RBC) [Ratio] 14.0 % Normal 11.5-15.5 [facility] ([place] Comment on above: Order Comment: withi n 1/2 hour of admission to CVSICU Performed By: #### C MP, GFR, CBC, MG, ADIFF, ANEU #### [place] [address] Hematocrit (Bld) [Volume fraction] 35.0 % Low 40.0-52.0 [facility] ([place] Comment on above: Order Comment: withi n 1/2 hour of admission to CVSICU Performed By: #### C MP, GFR, CBC, MG, ADIFF, ANEU #### [place] [id number] Hgb 12.6 G/dL Low 13.0-17.5 [facility] ([place] Comment on above: Order Comment: withi n 1/2 hour of admission to CVSICU Performed By: #### C MP, GFR, CBC, MG, ADIFF, ANEU #### [place] [id number] MCH (RBC) [Entitic mass] 35.8 pg High 27.0-33.0 [facility] ([place] Comment on above: Order Comment: withi n 1/2 hour of admission to CVSICU Performed By: #### C MP, GFR, CBC, MG, ADIFF, ANEU #### [address] [address] MCHC 35.9 G/dL Normal 32.0-36.0 [facility] ([place] Comment on above: Order Comment: withi n 1/2 hour of admission to CVSICU Performed By: #### C MP, GFR, CBC, MG, ADIFF, ANEU #### [place] [address] MCV (RBC) [Entitic vol] 99.5 fL Normal 81.0-100.0 [facility] ([place] Comment on above: Order Comment: withi n 1/2 hour of admission to CVSICU Performed By: #### C MP, GFR, CBC, MG, ADIFF, ANEU #### [place] [address] Platelet 138 10 3/mcL Low 150-450 [facility] ([place]) Comment on above: Order Comment: withi n 1/2 hour of admission to CVSICU Performed By: #### C MP, GFR, CBC, MG, ADIFF, ANEU #### [place] [address] Platelet mean volume (Bld) [Entitic vol] 6.9 fL Normal 6.4-10.5 [facility] ([place] Comment on above: Order Comment: withi n 1/2 hour of admission to CVSICU Performed By: #### C MP, GFR, CBC, MG, ADIFF, ANEU #### [place] [address] RBC 3.52 10 6/mcL Low 4.50-6.00 [facility] ([place]) Comment on above: Order Comment: withi n 1/2 hour of admission to CVSICU Performed By: #### C MP, GFR, CBC, MG, ADIFF, ANEU #### [place] [address] WBC 5.0 10 3/mcL Normal 4.5-10.8 [facility] ([place] Comment on above: Order Comment: withi n 1/2 hour of admission to CVSICU Performed By: #### C MP, GFR, CBC, MG, ADIFF, ANEU #### [facility] [address] [place], [place] [id number] LABORATORYOrdered By: Radha bales on 06-30-2023 Blood Glucose Testing Reason Routine (06/30/23 9:15 PM) [facility] Work Phone: LABORATORYOrdered By: SYSTEM SYSTEM [...] common iliac artery; EIA: external iliac artery; [employer]ISTANT [employer]ER: common femoral artery COMPARISON: None HISTORY: ORDERING SYSTEM PROVIDED HISTORY: Reason for Exam: severe coronary artery disease, hypertension, hyperlipidemia. FINDINGS: PRE-TAVR VASCULAR: Unless specified, all measurements are in mm. SoV Diameters RT: 31.3 NC: 33.5 LT: 34.1 3-cusp angulation (degrees): IRISH 1.5, PRESCHOOL AIDE 1.4 Asc Ao Margaret: 33.9 x 31.2 (@ 4 cm distal to annulus) STJ Margaret: 34.8 x 30.1 SoV Ht: 19.1 LVOT Margaret: 30.4 x 22.6 ANNULUS Diameter: 30.2 x 21.8 Area (mm^2): 483 Perimeter: 81.2 Height RCA: 16.2 Height LM: 11.9 ABD Ao Dmin: 17 RIGHT Dmin: MARCOS: 14.7 EIA: 9.7 [employer]ISTANT [employer]ANT CONTROLLER: 9.1 LEFT Dmin: MARCOS: 12.1 EIA: 9.6 [employer]ISTANT [employer]OLLER: 8.8 AORTIC VALVE Calcium Score: 5390 Calcium [...] Diameter: Non-aneurysmal Calcified plaque: Mild Tortuosity: Mild [employer]ISTANT [employer]ER Diameter: Non-aneurysmal Calcified plaque: Mild Bifurcation: Below 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 (more content not included)... Normal [facility] ([place]) .Auto Diffon 06-24-2023 Basophil, Absolute 0.0 10 3/mcL Normal 0.0-0.2 [facility] ([place]) Comment on above: Performed By: #### C MP, GFR, CBC, MG, ADIFF, ANEU #### [address] [address] Basophils/100 WBC (Bld) 0.3 % Normal 0.0-2.5 [facility] ([place]) Comment on above: Performed By: #### C MP, GFR, CBC, MG, ADIFF, ANEU #### [address] [address] Eosinophil, Absolute 0.2 10 3/mcL Normal 0.0-0.4 [facility] ([place]) Comment on above: Performed By: #### C MP, GFR, CBC, MG, ADIFF, ANEU #### [address] [address] Eosinophils/100 WBC (Bld) 4.9 % Normal 0.0-7.0 [facility] ([place]) Comment on above: Performed By: #### C MP, GFR, CBC, MG, ADIFF, ANEU #### [address] [address] Lymphocyte, Absolute 1.0 10 3/mcL Normal 0.8-3.9 [facility] ([place]) Comment on above: Performed By: #### C MP, GFR, CBC, MG, ADIFF, ANEU #### [address] [address] Lymphocytes/100 WBC (Bld) 25.0 % Normal 10.0-50.0 [facility] ([place]) Comment on above: Performed By: #### C MP, GFR, CBC, MG, ADIFF, ANEU #### [address] [address] Monocyte, Absolute 0.4 10 3/mcL Normal 0.2-1.0 [facility] ([place]) Comment on above: Performed By: #### C MP, GFR, CBC, MG, ADIFF, ANEU #### [address] [address] Monocytes/100 WBC (Bld) 9.6 % Normal 1.7-13.0 [facility] ([place]) Comment on above: Performed By: #### C MP, GFR, CBC, MG, ADIFF, ANEU #### [address] [address] Neutrophils/100 WBC (Bld) 60.2 % Normal 37.0-80.0 [facility] ([place]) Comment on above: Performed By: #### C MP, GFR, CBC, MG, ADIFF, ANEU #### [address] [address] .GFRon 06-24-2023 GFR Non- 44 ml/min/1.73sqm Normal [facility] ([place]) Comment on above: Result Comment: GFR Population [...] MP, GFR, CBC, MG, ADIFF, ANEU #### [address] [address] GFR 53 ml/min/1.73sqm Normal [facility] ([place]) Comment on above: Result Comment: GFR Population [...] MP, GFR, CBC, MG, ADIFF, ANEU #### [address] [address] .NEUABSon 06-24-2023 Neutrophil, Absolute 2.4 10 3/mcL Low 2.9-6.2 [facility] ([place]) Comment on above: Performed By: #### C MP, GFR, CBC, MG, ADIFF, ANEU #### [address] [address] BMPon 06-24-2023 BUN/Creatinine Ratio 14 ratio Normal 7-27 [facility] ([place]) Comment on above: Performed By: #### C MP, GFR, CBC, MG, ADIFF, ANEU #### [place] [address] Calcium [Mass/Vol] 9.3 mg/dL Normal 8.4-10.2 [facility] ([place]) Comment on above: Performed By: #### C MP, GFR, CBC, MG, ADIFF, ANEU #### [place] [address] Chloride [Moles/Vol] 106 mmol/L Normal 98-107 [facility] ([place]) Comment on above: Performed By: #### C MP, GFR, CBC, MG, ADIFF, ANEU #### [place] [address] CO2 [Moles/Vol] 28 mmol/L Normal 23-31 [facility] ([place]) Comment on above: Performed By: #### C MP, GFR, CBC, MG, ADIFF, ANEU #### [address] [address] Creatinine [Mass/Vol] 1.55 mg/dL High 0.70-1.30 [facility] ([place]) Comment on above: Performed By: #### C MP, GFR, CBC, MG, ADIFF, ANEU #### [place] [address] Electrolyte Balance 9.0 mEq/L Normal 4.0-15.0 [facility] ([place]) Comment on above: Performed By: #### C MP, GFR, CBC, MG, ADIFF, ANEU #### [place] [address] Glucose [Mass/Vol] 98 mg/dL Normal 83-110 [facility] ([place]) Comment on above: Performed By: #### C MP, GFR, CBC, MG, ADIFF, ANEU #### [place] [id number] Potassium [Moles/Vol] 4.3 mmol/L Normal 3.5-5.1 [facility] ([place]) Comment on above: Performed By: #### C MP, GFR, CBC, MG, ADIFF, ANEU #### [place] [id number] Sodium [Moles/Vol] 143 mmol/L Normal 136-145 [facility] ([place]) Comment on above: Performed By: #### C MP, GFR, CBC, MG, ADIFF, ANEU #### [place] [address] Urea nitrogen [Mass/Vol] 21 mg/dL High 7-18 [facility] ([place] Comment on above: Performed By: #### C MP, GFR, CBC, MG, ADIFF, ANEU #### [place] [address] CBCon 06-24-2023 Erythrocyte distribution width (RBC) [Ratio] 13.7 % Normal 11.5-14.5 [facility] ([place] Comment on above: Performed By: #### C MP, GFR, CBC, MG, ADIFF, ANEU #### [place] [address] Hematocrit (Bld) [Volume fraction] 37.3 % Low 42.0-52.0 [facility] ([place] Comment on above: Performed By: #### C MP, GFR, CBC, MG, ADIFF, ANEU #### [place] [address] Hgb 13.3 G/dL Low 14.0-18.0 [facility] ([place] Comment on above: Performed By: #### C MP, GFR, CBC, MG, ADIFF, ANEU #### [place] [address] MCH (RBC) [Entitic mass] 35.1 pg High 27.0-31.2 [facility] ([place] Comment on above: Performed By: #### C MP, GFR, CBC, MG, ADIFF, ANEU #### [place] [address] MCHC 35.7 G/dL High 31.8-35.4 [facility] ([place] Comment on above: Performed By: #### C MP, GFR, CBC, MG, ADIFF, ANEU #### [place] [address] MCV (RBC) [Entitic vol] 98.6 fL High 80.0-94.0 [facility] ([place] Comment on above: Performed By: #### C MP, GFR, CBC, MG, ADIFF, ANEU #### [place] [address] Platelet 169 10 3/mcL Normal 130-400 [facility] ([place] Comment on above: Performed By: #### C MP, GFR, CBC, MG, ADIFF, ANEU #### [place] [address] Platelet mean volume (Bld) [Entitic vol] 7.0 fL Low 7.4-10.4 [facility] ([place] Comment on above: Performed By: #### C MP, GFR, CBC, MG, ADIFF, ANEU #### [place] [address] RBC 3.79 10 6/mcL Low 4.04-6.13 [facility] ([place] Comment on above: Performed By: #### C MP, GFR, CBC, MG, ADIFF, ANEU #### [place] [address] WBC 4.1 10 3/mcL Low 4.6-10.8 [facility] ([place] Comment on above: Performed By: #### C MP, GFR, CBC, MG, ADIFF, ANEU #### [place] [address] LABORATORYOrdered By: SYSTEM SYSTEM on 06-24-2023 Basophil, [...] B (Bld) [Mass/Vol] 469 pg/mL High 0-450 [facility] ([place] Comment on above: Result Comment: NT-p roBNP results of less than 300 pg/mL effectively rules out acute congestive heart failure with 99% negative predictive value. Performed By: #### C MP, GFR, CBC, MG, ADIFF, ANEU #### [place] [address] XR PANOREX/ORTHOPANTOGRAMon 05-29-2023 XR PANOREX/ORTHOPANTOGR AM ORIGINAL [...] 05/29/2023 9:17:06 AM Ordering Provider: SIMI Ayon [facility] ([place]) .Auto Diffon 05-27-2023 Basophil, Absolute 0.0 10 3/mcL Normal 0.0-0.2 [facility] ([place]) Comment on above: Performed By: #### C BC, GFR, ADIFF, A1C, ANEU, LIPID, CMP #### [address] [address] Basophils/100 WBC (Bld) 0.5 % Normal 0.0-2.5 [facility] ([place] Comment on above: Performed By: #### C BC, GFR, ADIFF, A1C, ANEU, LIPID, CMP #### [address] [address] Eosinophil, Absolute 0.2 10 3/mcL Normal 0.0-0.4 [facility] ([place]) Comment on above: Performed By: #### C BC, GFR, ADIFF, A1C, ANEU, LIPID, CMP #### [address] [address] Eosinophils/100 WBC (Bld) 3.9 % Normal 0.0-7.0 [facility] ([place] Comment on above: Performed By: #### C BC, GFR, ADIFF, A1C, ANEU, LIPID, CMP #### [address] [address] Lymphocyte, Absolute 1.0 10 3/mcL Normal 0.8-3.9 [facility] ([place]) Comment on above: Performed By: #### C BC, GFR, ADIFF, A1C, ANEU, LIPID, CMP #### [address] [address] Lymphocytes/100 WBC (Bld) 21.6 % Normal 10.0-50.0 [facility] ([place] Comment on above: Performed By: #### C BC, GFR, ADIFF, A1C, ANEU, LIPID, CMP #### [address] [address] Monocyte, Absolute 0.4 10 3/mcL Normal 0.2-1.0 [facility] ([place]) Comment on above: Performed By: #### C BC, GFR, ADIFF, A1C, ANEU, LIPID, CMP #### [address] [address] Monocytes/100 WBC (Bld) 8.9 % Normal 1.7-13.0 [facility] ([place] Comment on above: Performed By: #### C BC, GFR, ADIFF, A1C, ANEU, LIPID, CMP #### [address] [address] Neutrophils/100 WBC (Bld) 65.1 % Normal 37.0-80.0 [facility] ([place] Comment on above: Performed By: #### C BC, GFR, ADIFF, A1C, ANEU, LIPID, CMP #### [address] [address] .GFRon 05-27-2023 GFR 49 ml/min/1.73sqm Normal [facility] ([place] Comment on above: Result Comment: GFR Population [...] MP, GFR, CBC, MG, ADIFF, ANEU #### [address] [address] GFR Non- 40 ml/min/1.73sqm Normal [facility] ([place] Comment on above: Result Comment: GFR Population [...] MP, GFR, CBC, MG, ADIFF, ANEU #### [address] [address] .NEUABSon 05-27-2023 Neutrophil, Absolute 3.0 10 3/mcL Normal 2.9-6.2 [facility] ([place]) Comment on above: Performed By: #### C BC, GFR, ADIFF, A1C, ANEU, LIPID, CMP #### [address] [address] A1Con 05-27-2023 HbA1c (Bld) [Mass fraction] 5.3 % Normal 4.3-6.4 [facility] ([place] Comment on above: Performed By: #### C MP, GFR, CBC, MG, ADIFF, ANEU #### [address] [address] CBCon 05-27-2023 Erythrocyte distribution width (RBC) [Ratio] 13.5 % Normal 11.5-14.5 [facility] ([place] Comment on above: Performed By: #### C BC, GFR, ADIFF, A1C, ANEU, LIPID, CMP #### [address] [address] Hematocrit (Bld) [Volume fraction] 36.9 % Low 42.0-52.0 [facility] ([place] Comment on above: Performed By: #### C BC, GFR, ADIFF, A1C, ANEU, LIPID, CMP #### [address] [address] Hgb 13.1 G/dL Low 14.0-18.0 [facility] ([place]) Comment on above: Performed By: #### C BC, GFR, ADIFF, A1C, ANEU, LIPID, CMP #### [address] [address] MCH (RBC) [Entitic mass] 34.9 pg High 27.0-31.2 [facility] ([place]) Comment on above: Performed By: #### C BC, GFR, ADIFF, A1C, ANEU, LIPID, CMP #### [address] [address] MCHC 35.5 G/dL High 31.8-35.4 [facility] ([place]) Comment on above: Performed By: #### C BC, GFR, ADIFF, A1C, ANEU, LIPID, CMP #### [address] [address] MCV (RBC) [Entitic vol] 98.1 fL High 80.0-94.0 [facility] ([place]) Comment on above: Performed By: #### C BC, GFR, ADIFF, A1C, ANEU, LIPID, CMP #### [address] [address] Platelet 168 10 3/mcL Normal 130-400 [facility] ([place]) Comment on above: Performed By: #### C BC, GFR, ADIFF, A1C, ANEU, LIPID, CMP #### [address] [address] Platelet mean volume (Bld) [Entitic vol] 6.7 fL Low 7.4-10.4 [facility] ([place]) Comment on above: Performed By: #### C BC, GFR, ADIFF, A1C, ANEU, LIPID, CMP #### [address] [address] RBC 3.76 10 6/mcL Low 4.04-6.13 [facility] ([place]) Comment on above: Performed By: #### C BC, GFR, ADIFF, A1C, ANEU, LIPID, CMP #### [address] [address] WBC 4.7 10 3/mcL Normal 4.6-10.8 [facility] ([place]) Comment on above: Performed By: #### C BC, GFR, ADIFF, A1C, ANEU, LIPID, CMP #### [address] [address] CMPon 05-27-2023 Albumin Level 3.8 G/dL Normal 3.4-4.8 [facility] ([place]) Comment on above: Performed By: #### C BC, GFR, ADIFF, A1C, ANEU, LIPID, CMP #### [address] [address] Albumin/Globulin [Mass ratio] 1.2 {ratio} Normal 1.1-2.5 [facility] ([place]) Comment on above: Performed By: #### C BC, GFR, ADIFF, A1C, ANEU, LIPID, CMP #### [address] [address] ALP [Catalytic activity/Vol] 75 U/L Normal 40-135 [facility] ([place]) Comment on above: Performed By: #### C BC, GFR, ADIFF, A1C, ANEU, LIPID, CMP #### [address] [address] ALT [Catalytic activity/Vol] 20 U/L Normal 16-63 [facility] ([place]) Comment on above: Performed By: #### C BC, GFR, ADIFF, A1C, ANEU, LIPID, CMP #### [address] [address] AST [Catalytic activity/Vol] 15 U/L Normal 10-40 [facility] ([place]) Comment on above: Performed By: #### C BC, GFR, ADIFF, A1C, ANEU, LIPID, CMP #### [address] [address] Bili Total 0.8 mg/dL Normal 0.2-1.0 [facility] ([place]) Comment on above: Result Comment: Use of this assay is not recommended for patients undergoing treatment with eltrombopag due to the potential for falsely elevated results. Performed By: #### C BC, GFR, ADIFF, A1C, ANEU, LIPID, CMP #### [address] [address] BUN/Creatinine Ratio 17 ratio Normal 7-27 [facility] ([place]) Comment on above: Performed By: #### C BC, GFR, ADIFF, A1C, ANEU, LIPID, CMP #### [address] [address] Calcium [Mass/Vol] 9.4 mg/dL Normal 8.4-10.2 [facility] ([place]) Comment on above: Performed By: #### C BC, GFR, ADIFF, A1C, ANEU, LIPID, CMP #### [address] [address] Chloride [Moles/Vol] 106 mmol/L Normal 98-107 [facility] ([place]) Comment on above: Performed By: #### C BC, GFR, ADIFF, A1C, ANEU, LIPID, CMP #### [address] [address] CO2 [Moles/Vol] 28 mmol/L Normal 23-31 [facility] ([place]) Comment on above: Performed By: #### C BC, GFR, ADIFF, A1C, ANEU, LIPID, CMP #### [address] [address] Creatinine [Mass/Vol] 1.67 mg/dL High 0.70-1.30 [facility] ([place]) Comment on above: Performed By: #### C BC, GFR, ADIFF, A1C, ANEU, LIPID, CMP #### [address] [address] Electrolyte Balance 9.0 mEq/L Normal 4.0-15.0 [facility] ([place]) Comment on above: Performed By: #### C BC, GFR, ADIFF, A1C, ANEU, LIPID, CMP #### [address] [address] Globulin 3.3 G/dL Normal [facility] ([place]) Comment on above: Performed By: #### C BC, GFR, ADIFF, A1C, ANEU, LIPID, CMP #### [address] [address] Glucose [Mass/Vol] 102 mg/dL Normal 83-110 [facility] ([place]) Comment on above: Performed By: #### C BC, GFR, ADIFF, A1C, ANEU, LIPID, CMP #### [address] [address] Potassium [Moles/Vol] 4.4 mmol/L Normal 3.5-5.1 [facility] ([place]) Comment on above: Performed By: #### C BC, GFR, ADIFF, A1C, ANEU, LIPID, CMP #### [address] [address] Sodium [Moles/Vol] 143 mmol/L Normal 136-145 [facility] ([place]) Comment on above: Performed By: #### C BC, GFR, ADIFF, A1C, ANEU, LIPID, CMP #### [address] [address] Total Protein 7.1 G/dL Normal 6.4-8.2 [facility] ([place]) Comment on above: Performed By: #### C BC, GFR, ADIFF, A1C, ANEU, LIPID, CMP #### [address] [address] Urea nitrogen [Mass/Vol] 28 mg/dL High 7-18 [facility] ([place]) Comment on above: Performed By: #### C BC, GFR, ADIFF, A1C, ANEU, LIPID, CMP #### [address] [address] LIPIDon 05-27-2023 Cholesterol [Mass/Vol] 155 mg/dL Normal 0-200 [facility] ([place]) Comment on above: Result Comment: Chol esterol Reference Interval: Less than 200 Desirable 200-239 Borderline high risk 240 and above High risk Performed By: #### C MP, GFR, CBC, MG, ADIFF, ANEU #### [facility] [address] [place] [address] Cholesterol in HDL [Mass/Vol] 60 mg/dL Normal 40-60 [facility] ([place]) Comment on above: Performed By: #### C MP, GFR, CBC, MG, ADIFF, ANEU #### [place] [address] Cholesterol in LDL [Mass/Vol] 79 mg/dL Normal 0-130 [facility] ([place]) Comment on above: Performed By: #### C MP, GFR, CBC, MG, ADIFF, ANEU #### [place] [address] Triglyceride [Mass/Vol] 81 mg/dL Normal 0-150 [facility] ([place]) Comment on above: Result Comment: Trig lyceride Reference Interval: Less than 150 Normal 150-199 Borderline high risk 200-499 High risk 500 or higher Very high risk Performed By: #### C MP, GFR, CBC, MG, ADIFF, ANEU #### [place] [address] LABORATORYOrdered By: SYSTEM SYSTEM on 05-22-2023 Prostate specific Ag [Mass/Vol] 4.03 ng/mL High 0.00 - 4.00 ng/mL AO ADM SS PSAon 05-22-2023 Prostate Specific Antigen 4.03 ng/mL High 0.00-4.00 [facility] ([place]) Comment on above: Performed By: #### C MP, GFR, CBC, MG, ADIFF, ANEU #### [place] [address] .Auto Diffon 05-21-2023 Basophil, Absolute 0.0 10 3/mcL Normal 0.0-0.3 [facility] ([place]) Comment on above: Performed By: #### C MP, GFR, CBC, MG, ADIFF, ANEU #### [place] [address] Basophils/100 WBC (Bld) 0.2 % Normal 0.0-2.5 [facility] ([place]) Comment on above: Performed By: #### C MP, GFR, CBC, MG, ADIFF, ANEU #### [place] [address] Eosinophil, Absolute 0.1 10 3/mcL Normal 0.0-0.7 [facility] ([place]) Comment on above: Performed By: #### C MP, GFR, CBC, MG, ADIFF, ANEU #### [address] [address] Eosinophils/100 WBC (Bld) 3.2 % Normal 0.0-6.0 [facility] ([place]) Comment on above: Performed By: #### C MP, GFR, CBC, MG, ADIFF, ANEU #### [address] [address] Lymphocyte, Absolute 0.9 10 3/mcL Normal 0.9-4.3 [facility] ([place]) Comment on above: Performed By: #### C MP, GFR, CBC, MG, ADIFF, ANEU #### [address] [address] Lymphocytes/100 WBC (Bld) 22.8 % Normal 20.0-40.0 [facility] ([place]) Comment on above: Performed By: #### C MP, GFR, CBC, MG, ADIFF, ANEU #### [address] [address] Monocyte, Absolute 0.4 10 3/mcL Normal 0.1-1.4 [facility] ([place]) Comment on above: Performed By: #### C MP, GFR, CBC, MG, ADIFF, ANEU #### [address] [address] Monocytes/100 WBC (Bld) 9.1 % Normal 2.0-13.0 [facility] ([place]) Comment on above: Performed By: #### C MP, GFR, CBC, MG, ADIFF, ANEU #### [address] [address] Neutrophils/100 WBC (Bld) 64.7 % Normal 50.0-75.0 [facility] ([place]) Comment on above: Performed By: #### C MP, GFR, CBC, MG, ADIFF, ANEU #### [address] [address] .GFRon 05-21-2023 GFR 47 ml/min/1.73sqm Normal [facility] ([place]) Comment on above: Result Comment: GFR Population [...] MP, GFR, CBC, MG, ADIFF, ANEU #### [address] [address] GFR Non- 39 ml/min/1.73sqm Normal [facility] ([place]) Comment on above: Result Comment: GFR Population [...] MP, GFR, CBC, MG, ADIFF, ANEU #### [address] [address] .NEUABSon 05-21-2023 Neutrophil, Absolute 2.6 10 3/mcL Normal 2.3-8.1 [facility] ([place]) Comment on above: Performed By: #### C MP, GFR, CBC, MG, ADIFF, ANEU #### [address] [address] CBCon 05-21-2023 Erythrocyte distribution width (RBC) [Ratio] 13.6 % Normal 11.5-15.5 [facility] ([place]) Comment on above: Performed By: #### C MP, GFR, CBC, MG, ADIFF, ANEU #### [place] [address] Hematocrit (Bld) [Volume fraction] 36.4 % Low 40.0-52.0 [facility] ([place]) Comment on above: Performed By: #### C MP, GFR, CBC, MG, ADIFF, ANEU #### [place] [address] Hgb 12.6 G/dL Low 13.0-17.5 [facility] ([place]) Comment on above: Performed By: #### C MP, GFR, CBC, MG, ADIFF, ANEU #### [place] [address] MCH (RBC) [Entitic mass] 34.9 pg High 27.0-33.0 [facility] ([place]) Comment on above: Performed By: #### C MP, GFR, CBC, MG, ADIFF, ANEU #### [place] [address] MCHC 34.6 G/dL Normal 32.0-36.0 [facility] ([place]) Comment on above: Performed By: #### C MP, GFR, CBC, MG, ADIFF, ANEU #### [place] [address] MCV (RBC) [Entitic vol] 101.0 fL High 81.0-100.0 [facility] ([place]) Comment on above: Performed By: #### C MP, GFR, CBC, MG, ADIFF, ANEU #### [place] [id number] Platelet 156 10 3/mcL Normal 150-450 [facility] ([place]) Comment on above: Performed By: #### C MP, GFR, CBC, MG, ADIFF, ANEU #### [place] [address] Platelet mean volume (Bld) [Entitic vol] 7.3 fL Normal 6.4-10.5 [facility] ([place]) Comment on above: Performed By: #### C MP, GFR, CBC, MG, ADIFF, ANEU #### [address] [address] RBC 3.60 10 6/mcL Low 4.50-6.00 [facility] ([place]) Comment on above: Performed By: #### C MP, GFR, CBC, MG, ADIFF, ANEU #### [place] [id number] WBC 4.0 10 3/mcL Low 4.5-10.8 [facility] ([place]) Comment on above: Performed By: #### C MP, GFR, CBC, MG, ADIFF, ANEU #### [address] [address] CMPon 05-21-2023 Albumin Level 3.6 G/dL Normal 3.2-4.8 [facility] ([place]) Comment on above: Performed By: #### C MP, GFR, CBC, MG, ADIFF, ANEU #### [place] [address] Albumin/Globulin [Mass ratio] 1.5 {ratio} Normal 0.9-1.6 [facility] ([place]) Comment on above: Performed By: #### C MP, GFR, CBC, MG, ADIFF, ANEU #### [address] [address] ALP [Catalytic activity/Vol] 67 U/L Normal 38-126 [facility] ([place]) Comment on above: Performed By: #### C MP, GFR, CBC, MG, ADIFF, ANEU #### [address] [address] ALT [Catalytic activity/Vol] 15 U/L Normal 12-55 [facility] ([place]) Comment on above: Performed By: #### C MP, GFR, CBC, MG, ADIFF, ANEU #### [place] [id number] AST [Catalytic activity/Vol] 16 U/L Normal 8-34 [facility] ([place]) Comment on above: Performed By: #### C MP, GFR, CBC, MG, ADIFF, ANEU #### [address] [address] Bili Total 0.60 mg/dL Normal 0.20-1.20 [facility] ([place]) Comment on above: Result Comment: Use of this assay is not recommended for patients undergoing treatment with eltrombopag due to the potential for falsely elevated results. Performed By: #### C MP, GFR, CBC, MG, ADIFF, ANEU #### [place] [address] BUN/Creatinine Ratio 14.0 ratio Normal 10.0-22.0 [facility] ([place]) Comment on above: Performed By: #### C MP, GFR, CBC, MG, ADIFF, ANEU #### [place] [address] Calcium [Mass/Vol] 8.9 mg/dL Normal 8.7-10.4 [facility] ([place]) Comment on above: Performed By: #### C MP, GFR, CBC, MG, ADIFF, ANEU #### [place] [address] Chloride [Moles/Vol] 109 mmol/L Normal 98-110 [facility] ([place]) Comment on above: Performed By: #### C MP, GFR, CBC, MG, ADIFF, ANEU #### [place] [address] CO2 [Moles/Vol] 26 mmol/L Normal 22-32 [facility] ([place]) Comment on above: Performed By: #### C MP, GFR, CBC, MG, ADIFF, ANEU #### [address] [address] Creatinine [Mass/Vol] 1.71 mg/dL High 0.60-1.40 [facility] ([place]) Comment on above: Performed By: #### C MP, GFR, CBC, MG, ADIFF, ANEU #### [place] [id number] Electrolyte Balance 6.0 mEq/L Normal 4.0-15.0 [facility] ([place]) Comment on above: Performed By: #### C MP, GFR, CBC, MG, ADIFF, ANEU #### [address] [address] Globulin 2.4 G/dL Normal 1.5-3.8 [facility] ([place]) Comment on above: Performed By: #### C MP, GFR, CBC, MG, ADIFF, ANEU #### [address] [address] Glucose [Mass/Vol] 85 mg/dL Normal 82-115 [facility] ([place]) Comment on above: Performed By: #### C MP, GFR, CBC, MG, ADIFF, ANEU #### [address] [address] Potassium [Moles/Vol] 4.2 mmol/L Normal 3.5-5.0 [facility] ([place]) Comment on above: Performed By: #### C MP, GFR, CBC, MG, ADIFF, ANEU #### [place] [id number] Sodium [Moles/Vol] 141 mmol/L Normal 136-145 [facility] ([place]) Comment on above: Performed By: #### C MP, GFR, CBC, MG, ADIFF, ANEU #### [address] [address] Total Protein 6.0 G/dL Normal 5.7-8.2 [facility] ([place]) Comment on above: Result Comment: No te - New Reference Range in effect 20 Performed By: #### C MP, GFR, CBC, MG, ADIFF, ANEU #### [address] [address] Urea nitrogen [Mass/Vol] 24.0 mg/dL High 8.0-22.0 [facility] ([place]) Comment on above: Performed By: #### C MP, GFR, CBC, MG, ADIFF, ANEU #### [address] [address] MGon 05-21-2023 Magnesium [Mass/Vol] 2.2 mg/dL Normal 1.6-2.4 [facility] ([place]) Comment on above: Performed By: #### C MP, GFR, CBC, MG, ADIFF, ANEU #### [address] [address] .Auto Diffon 05-19-2023 Basophil, Absolute 0.0 10 3/mcL Normal 0.0-0.3 [facility] ([place]) Comment on above: Performed By: #### C MP, GFR, CBC, MG, ADIFF, ANEU #### [address] [address] Basophils/100 WBC (Bld) 0.2 % Normal 0.0-2.5 [facility] ([place]) Comment on above: Performed By: #### C MP, GFR, CBC, MG, ADIFF, ANEU #### [address] [address] Eosinophil, Absolute 0.1 10 3/mcL Normal 0.0-0.7 [facility] ([place]) Comment on above: Performed By: #### C MP, GFR, CBC, MG, ADIFF, ANEU #### [address] [address] Eosinophils/100 WBC (Bld) 4.0 % Normal 0.0-6.0 [facility] ([place]) Comment on above: Performed By: #### C MP, GFR, CBC, MG, ADIFF, ANEU #### [address] [address] Lymphocyte, Absolute 0.9 10 3/mcL Normal 0.9-4.3 [facility] ([place]) Comment on above: Performed By: #### C MP, GFR, CBC, MG, ADIFF, ANEU #### [address] [address] Lymphocytes/100 WBC (Bld) 23.1 % Normal 20.0-40.0 [facility] ([place]) Comment on above: Performed By: #### C MP, GFR, CBC, MG, ADIFF, ANEU #### [address] [address] Monocyte, Absolute 0.3 10 3/mcL Normal 0.1-1.4 [facility] ([place]) Comment on above: Performed By: #### C MP, GFR, CBC, MG, ADIFF, ANEU #### [address] [address] Monocytes/100 WBC (Bld) 8.2 % Normal 2.0-13.0 [facility] ([place]) Comment on above: Performed By: #### C MP, GFR, CBC, MG, ADIFF, ANEU #### [address] [address] Neutrophils/100 WBC (Bld) 64.5 % Normal 50.0-75.0 [facility] ([place]) Comment on above: Performed By: #### C MP, GFR, CBC, MG, ADIFF, ANEU #### [address] [address] .GFRon 05-19-2023 GFR 51 ml/min/1.73sqm Normal [facility] ([place]) Comment on above: Result Comment: GFR Population [...] MP, GFR, CBC, MG, ADIFF, ANEU #### [address] [address] GFR Non- 42 ml/min/1.73sqm Normal [facility] ([place]) Comment on above: Result Comment: GFR Population [...] MP, GFR, CBC, MG, ADIFF, ANEU #### [address] [address] .NEUABSon 05-19-2023 Neutrophil, Absolute 2.4 10 3/mcL Normal 2.3-8.1 [facility] ([place]) Comment on above: Performed By: #### C MP, GFR, CBC, MG, ADIFF, ANEU #### [address] [address] BMPon 05-19-2023 BUN/Creatinine Ratio 13.7 ratio Normal 10.0-22.0 [facility] ([place]) Comment on above: Performed By: #### C MP, GFR, CBC, MG, ADIFF, ANEU #### [address] [address] Calcium [Mass/Vol] 9.2 mg/dL Normal 8.7-10.4 [facility] ([place]) Comment on above: Performed By: #### C MP, GFR, CBC, MG, ADIFF, ANEU #### [address] [address] Chloride [Moles/Vol] 110 mmol/L Normal 98-110 [facility] ([place]) Comment on above: Performed By: #### C MP, GFR, CBC, MG, ADIFF, ANEU #### [address] [address] CO2 [Moles/Vol] 22 mmol/L Normal 22-32 [facility] ([place]) Comment on above: Performed By: #### C MP, GFR, CBC, MG, ADIFF, ANEU #### [address] [address] Creatinine [Mass/Vol] 1.61 mg/dL High 0.60-1.40 [facility] ([place]) Comment on above: Performed By: #### C MP, GFR, CBC, MG, ADIFF, ANEU #### [place] [address] Electrolyte Balance 4.0 mEq/L Normal 4.0-15.0 [facility] ([place]) Comment on above: Performed By: #### C MP, GFR, CBC, MG, ADIFF, ANEU #### [place] [address] Glucose [Mass/Vol] 129 mg/dL High 82-115 [facility] ([place]) Comment on above: Performed By: #### C MP, GFR, CBC, MG, ADIFF, ANEU #### [place] [address] Potassium [Moles/Vol] 4.4 mmol/L Normal 3.5-5.0 [facility] ([place]) Comment on above: Result Comment: Spec imen slightly hemolyzed. Performed By: #### C MP, GFR, CBC, MG, ADIFF, ANEU #### [place] [id number] Sodium [Moles/Vol] 136 mmol/L Normal 136-145 [facility] ([place]) Comment on above: Performed By: #### C MP, GFR, CBC, MG, ADIFF, ANEU #### [place] [address] Urea nitrogen [Mass/Vol] 22.0 mg/dL Normal 8.0-22.0 [facility] ([place]) Comment on above: Performed By: #### C MP, GFR, CBC, MG, ADIFF, ANEU #### [place] [id number] CBCon 05-19-2023 Erythrocyte distribution width (RBC) [Ratio] 13.5 % Normal 11.5-15.5 [facility] ([place]) Comment on above: Performed By: #### C MP, GFR, CBC, MG, ADIFF, ANEU #### [place] [id number] Hematocrit (Bld) [Volume fraction] 36.2 % Low 40.0-52.0 [facility] ([place]) Comment on above: Performed By: #### C MP, GFR, CBC, MG, ADIFF, ANEU #### [place] [address] Hgb 12.6 G/dL Low 13.0-17.5 [facility] ([place]) Comment on above: Performed By: #### C MP, GFR, CBC, MG, ADIFF, ANEU #### [place] [address] MCH (RBC) [Entitic mass] 34.9 pg High 27.0-33.0 [facility] ([place]) Comment on above: Performed By: #### C MP, GFR, CBC, MG, ADIFF, ANEU #### [place] [address] MCHC 34.7 G/dL Normal 32.0-36.0 [facility] ([place]) Comment on above: Performed By: #### C MP, GFR, CBC, MG, ADIFF, ANEU #### [place] [address] MCV (RBC) [Entitic vol] 100.4 fL High 81.0-100.0 [facility] ([place]) Comment on above: Performed By: #### C MP, GFR, CBC, MG, ADIFF, ANEU #### [place] [address] Platelet 149 10 3/mcL Low 150-450 [facility] ([place]) Comment on above: Performed By: #### C MP, GFR, CBC, MG, ADIFF, ANEU #### [place] [address] Platelet mean volume (Bld) [Entitic vol] 7.1 fL Normal 6.4-10.5 [facility] ([place]) Comment on above: Performed By: #### C MP, GFR, CBC, MG, ADIFF, ANEU #### [place] [address] RBC 3.60 10 6/mcL Low 4.50-6.00 [facility] ([place]) Comment on above: Performed By: #### C MP, GFR, CBC, MG, ADIFF, ANEU #### [address] [address] WBC 3.8 10 3/mcL Low 4.5-10.8 [facility]) Comment on above: Performed By: #### C MP, GFR, CBC, MG, ADIFF, ANEU #### [address] [address] NM MYOCARDIAL SPECT STRESS/R ESTon 05-19-2023 NM [...] 05/19/2023 11:04:17 AM Ordering Provider: ABISAI Ayon [facility]) LABORATORYOrdered By: MATTHIAS DAVEY CONTRIBUTOR_SYSTEM on 12-29-2022 Bordetella parapertussis by PCR Not detected Invalid Interpretation Code Not Detected AO Sendouts SS Comment on above: Result Comment: Perf ormed By: [facility] [employer] [address] [place] [address] Insulation Professional: Marquise Davis III, M.D. CLIA#: [id number] Bordetella pertussis by PCR Not detected Invalid Interpretation Code Not detected AO Sendouts SS Comment on above: Result Comment: Perf ormed By: [facility] [employer] [facility] [place] [address] Insulation Professional: Marquise Davis III, M.D. CLIA#: [id number] LABORATORYOrdered By: SYSTEM SYSTEM on 11-20-2022 Albumin [...] Account Attending Physician IVAN SALAS 76/M LABSPEC [id number] Dr. Gregorio Neal MD Specimen: [id number] Received: 08/07/22 Status: JOYCELYN Angela Num: [id number] Spec Type: IMMUNO Subm Dr: Dr. Gregorio Neal MD PHYSICIAN INSTITUTION [place] [address] SPECIMEN INFORMATION: Tissue Source: B - Right mid, C - Right base, D - Left apex, E - Left mid Clinical Info: Elevated PSA Specimen Number: [id number] B-E CPT code: 31160, 08164 x7 METHODOLOGY: Deparaffinized sections of prefer/formalin-fixed tissue [...] developed and their performance characteristics determined by [facility]. They may not have been cleared or approved by the U.[place]. Food and Drug Administration. The FDA has determined that such clearance or approval is not necessary. The above immunohistochemical/dual MONAE markers are ordered and reviewed by the Pathologist. Patient Age/Sex Location Account Attending Physician IVAN SALAS/M LABSPEC [id number] Dr. Gregorio Neal MD INTERPRETATION: B. Right [...] Dr. Yariel Palomo MD 08/08/22 1307 Normal [facility] Comment on above: Performed By: #### [id number] #### [facility] [address] [place], [place], [id number] PROSTATE BXon 08-05-2022 PROSTATE BX ---- Patient Age/Sex Location Account Attending Physician IVAN SALAS/M [facility]SPEC [id number] Dr. Gregorio Neal MD Specimen: [id number] Received: 08/06/22 Status: JOYCELYN Angela Num: [id number] Spec Type: PROST BX Subm Dr: Dr. Gregorio Neal MD HEADER OPERATION: Prostate biopsy PRE-OP DIAGNOSIS: Elevated PSA TISSUE SUBMITTED: A - Right apex, B - Right mid, C - Right base, D - Left apex, E - Left mid, F - Left base MICROSCOPIC DIAGNOSIS A. Right prostate, apex, core biopsy: Prostatic adenocarcinoma. [place] grade: 3+3=6 Number of cores involved: 1/2 Proportion of tissue involved: 20% Perineural invasion: Not identified. Greatest tumor length: 0.4 cm Focal high-grade prostatic intraepithelial neoplasia (HGPIN). B. Right prostate, mid, core biopsy: Prostatic adenocarcinoma. Bedrock grade: 3+3=6 Number of cores involved: 1/2 [...] Left prostate, apex, core biopsy: Prostatic adenocarcinoma. Bedrock grade: 3+3=6 Number of cores involved: 1/2 Proportion of tissue involved: 20% Perineural invasion: Not identified. Greatest tumor length: 0.4 cm Focal high-grade prostatic intraepithelial neoplasia (HGPIN). See comment. E. 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 See comment. Patient Age/Sex Location Account Attending Physician IVAN SALAS 76/M [facility] [id number] Dr. Gregorio Neal MD F. Left prostate, base, core biopsy: Focal high-grade prostatic intraepithelial neoplasia (HGPIN). SJ:raquel 08/07/2022 COMMENT B-E. Immunohistochemistry ([id number]) supports the above diagnosis. MICROSCOPIC DESCRIPTION Slides [...] [id number] Patient Age/Sex Location Account Attending Physician IVAN SALAS/[place] [facility] [id number] Dr. Gregorio Neal MD Signed (signature on file) Dr. Saldivar (more content not included)... Normal [facility] Comment on above: Performed By: #### P PROSB #### [facility] [address] [place], [address] LABORATORYOrdered By: Christen Odonnell on 05-23-2022 Albumin [...] 10^3/mcL AO Auto Heme SS LABORATORYOrdered By: Archevos SYSTEM on 08-21-2021 GFR 55 ml/min/1.73sqm Invalid [...] Heart rate 70 /min RUBIO REBOLLEDO MD [facility] 07-01-2023 08:38-0500 Heart rate 88 /min RUBIO REBOLLEDO MD [facility] 07-01-2023 08:38-0500 Reason For Taking VItal Signs RUBIO REBOLLEDO MD [facility] 07-01-2023 07:11-0500 Body temperature 98.24 [degF] RUBIO REBOLLEDO MD [facility] 07-01-2023 07:11-0500 Diastolic Blood Pressure Non-Invasive 70 mm[Hg] RUBIO REBOLLEDO MD [address] 07-01-2023 07:11-0500 Heart rate 72 /min RUBIO REBOLLEDO MD [address] [place] [address] 07-01-2023 07:11-0500 Mean blood pressure 83 mm[Hg] RUBIO REBOLLEDO MD [address] [place] [address] 07-01-2023 07:11-0500 Reason For Taking VItal Signs RUBIO REBOLLEDO MD [address] [place] [address] 07-01-2023 07:11-0500 Respiratory rate 16 /min RUBIO REBOLLEDO MD [address] [place] [address] 07-01-2023 07:11-0500 Systolic Blood Pressure Non-Invasive 122 mm[Hg] RUBIO REBOLLEDO MD [address] [place] [address] 07-01-2023 04:22-0500 Body temperature 98.24 [degF] RUBIO REBOLLEDO MD [address] [place] [address] 07-01-2023 04:22-0500 Diastolic Blood Pressure Non-Invasive 81 mm[Hg] RUBIO REBOLLEDO MD [address] [place] [address] 07-01-2023 04:22-0500 Heart rate 70 /min RUBIO REBOLLEDO MD [address] [place] [address] 07-01-2023 04:22-0500 Mean blood pressure 97 mm[Hg] RUBIO REBOLLEDO MD [address] [place] [address] 07-01-2023 04:22-0500 Reason For Taking VItal Signs RUBIO REBOLLEDO MD [address] [place] [address] 07-01-2023 04:22-0500 Respiratory rate 16 /min RUBIO REBOLLEDO MD [address] [place] [address] 07-01-2023 04:22-0500 Systolic Blood Pressure Non-Invasive 138 mm[Hg] RUBIO REBOLLEDO MD [address] [place] [address] 06-30-2023 23:12-0500 Body temperature 98.6 [degF] RUBIO REBOLLEDO MD [facility] 06-30-2023 23:12-0500 Diastolic Blood Pressure Non-Invasive 83 mm[Hg] RUBIO REBOLLEDO MD [address] [place] [address] 06-30-2023 23:12-0500 Mean blood pressure 96 mm[Hg] RUBIO REBOLLEDO MD [address] [place] [address] 06-30-2023 23:12-0500 Respiratory rate 18 /min RUBIO REBOLLEDO MD [address] [place] [address] 06-30-2023 23:12-0500 Systolic Blood Pressure Non-Invasive 130 mm[Hg] RUBIO REBOLLEDO MD [address] [place] [address] 06-30-2023 08:35-0500 Body height 185.4 cm RUBIO REBOLLEDO MD [address] [place] [address] 06-30-2023 08:35-0500 Body weight 101.2 kg RUBIO REBOLLEDO MD [address] [place] [address] 06-30-2023 08:35-0500 Heart rate 50 /min RUBIO REBOLLEDO MD [address] 08-05-2022 16:43-0500 Body height 185.42 cm [facility] 08-22-2021 07:04-0500 Body temperature 98.06 [degF] DR DUC SCHERER MD [facility] 08-22-2021 07:04-0500 Diastolic blood pressure 64 mm[Hg] DR DUC SCHERER MD [facility] 08-22-2021 07:04-0500 Heart rate 65 /min DR DCU SCHERER MD [facility] 08-22-2021 07:04-0500 Reason For Taking VItal Signs DR DUC SCHERER MD [facility] 08-22-2021 07:04-0500 Respiratory rate 18 /min DR DUC SCHERER MD [facility] 08-22-2021 07:04-0500 Systolic blood pressure 108 mm[Hg] DR DUC SCHERER MD [facility] 08-22-2021 04:51-0500 Reason For Taking VItal Signs DR DUC SCHERER MD [facility] 08-22-2021 04:30-0500 Body temperature 97.7 [degF] DR DUC SCHERER MD [facility] 08-22-2021 04:30-0500 Diastolic blood pressure 62 mm[Hg] DR DUC SCHERER MD [facility] 08-22-2021 04:30-0500 Heart rate 71 /min DR DUC SCHERER MD [facility] 08-22-2021 04:30-0500 Mean blood pressure 84 mm[Hg] DR DUC SCHERER MD [facility] 08-22-2021 04:30-0500 Reason For Taking VItal Signs DR DUC SCHERER MD [facility] 08-22-2021 04:30-0500 Respiratory rate 18 /min DR DUC SCHERER MD [facility] 08-22-2021 04:30-0500 Systolic blood pressure 127 mm[Hg] DR DUC SCHERER MD [facility] 08-21-2021 23:50-0500 Body temperature 97.7 [degF] DR DUC SCHERER MD [facility] 08-21-2021 23:50-0500 Diastolic blood pressure 66 mm[Hg] DR DUC SCHERER MD [facility] 08-21-2021 23:50-0500 Heart rate 82 /min DR DUC SCHERER MD [facility] 08-21-2021 23:50-0500 Mean blood pressure 79 mm[Hg] DR DUC SCHERER MD [facility] 08-21-2021 23:50-0500 Respiratory rate 18 /min DR DUC SCHERER MD [facility] 08-21-2021 23:50-0500 Systolic blood pressure 104 mm[Hg] DR DUC SCHERER MD [facility] 08-21-2021 19:16-0500 Heart rate 66 /min DR DUC SCHERER MD [facility] 08-21-2021 19:16-0500 Mean blood pressure 72 mm[Hg] DR DUC SCHERER MD [facility] 08-21-2021 16:42-0500 Heart rate 66 /min DR DUC SCHERER MD [facility] 08-20-2021 17:22-0500 Heart rate 66 /min DR DUC SCHERER MD [facility] 08-20-2021 16:35-0500 Diastolic Blood Pressure NBP [address] DUC SCHERER MD [facility] 08-20-2021 16:35-0500 Systolic Blood Pressure NBP [address] DUC SCHERER MD [facility] 08-20-2021 15:11-0500 Body height [address] DUC SCHERER MD [facility] 08-20-2021 15:11-0500 Body weight 104.[address] DUC SCHERER MD [facility] 08-20-2021 15:11-0500 Body weight 31.55 kg/m2 DR DUC SCHERER MD [facility] 08-20-2021 13:15-0500 Diastolic Blood Pressure NBP [address] DUC SCHERER MD [facility] 08-20-2021 13:15-0500 Systolic Blood Pressure NBP [address] DUC SCHERER MD [facility] 08-20-2021 12:59-0500 Diastolic Blood Pressure NBP [address] DUC SCHERER MD [facility] 08-20-2021 12:59-0500 Systolic Blood Pressure NBP [address] DUC SCHERER MD [facility] 08-20-2021 12:25-0500 Body temperature 96.8 [degF] DR DUC SCHERER MD [facility] 08-20-2021 09:06-0500 Body height [address] DUC SCHERER MD [facility] 08-20-2021 09:06-0500 Body temperature 97.16 [degF] DR DUC SCHERER MD [facility] 08-20-2021 09:06-0500 Body weight 104.[address] DUC SCHERER MD [facility] 08-20-2021 09:06-0500 Body weight 31.55 kg/m2 DR DUC SCHERER MD [facility] 08-20-2021 09:06-0500 Heart rate 76 /min DR DUC SCHERER MD [facility] 08-09-2021 09:24-0500 Body height 182.[address] DUC SCHERER MD [facility] 08-09-2021 09:24-0500 Body weight 104.[address] DUC SCHERER MD [facility] 08-09-2021 09:24-0500 Body weight 31.24 kg/m2 DR DUC SCHERER MD [facility] 08-09-2021 09:24-0500 diastolic 70 mm[Hg] DR DUC SCHERER MD [facility] 08-09-2021 09:24-0500 Heart rate 71 /min DR DUC SCHERER MD [facility] 08-09-2021 09:24-0500 systolic 152 mm[Hg] DR DUC SCHERER MD [facility] Encounters Encounter Date Encounter Type Care Provider Facility Start: 11-07-2024 End: 11-07-2024 ambulatory CHI DURAN SOC[employer] MARKETING SPECIALIST - [employer] Facility:[facility] Start: 11-07-2024 End: 11-07-2024 Patient encounter procedure TANYA WYLIE MD [facility] Start: 10-18-2024 End: 10-18-2024 ambulatory CHI DURAN [employer] MARKETING SPECIALIST - [employer] Facility:[facility] Start: 10-18-2024 Encounter for preprocedural laboratory examination GREGORIO NEAL [facility] Start: 10-18-2024 End: 10-18-[address] GREGORIO NEAL MD [facility] Start: 10-18-2024 End: 10-18-[address] GREGORIO NEAL MD [facility] Start: 10-17-2024 End: 10-17-2024 ambulatory CHI DURAN SOC[employer] MARKETING SPECIALIST - [employer] Facility:[facility] Start: 10-17-2024 End: 10-17-2024 Patient encounter procedure CHI DURAN SOC[employer] MEDIA MARKETING SPECIALIST - [employer] [facility] Start: 08-23-2024 End: 08-23-2024 ambulatory GREGORIO NEAL Facility:[facility] Start: 08-23-2024 End: 08-23-[address] GREGORIO NEAL MD [facility] Start: 06-30-2024 End: 06-30-2024 ambulatory DERICK AMOR Facility:[facility] Start: 06-30-2024 End: 06-30-2024 Patient encounter procedure DERICK AMOR MD [facility] Start: 06-09-2024 End: 06-13-2024 ambulatory CHI DURAN SOC[employer] MARKETING SPECIALIST - [employer] Facility:[facility] Start: 06-09-2024 End: 06-13-2024 Outreach Lab CHI DURAN SOC[employer]IA MARKETING SPECIALIST - [employer] [facility] Start: 02-18-2024 End: 02-22-[address] GREGORIO NEAL MD Facility:[facility] Start: 02-18-2024 End: 02-22-[address] GREGORIO NEAL MD [facility] Start: 12-10-2023 End: 12-14-2023 ambulatory CHI DRUAN SOC[employer] MARKETING SPECIALIST - [employer] Facility:[facility] Start: 12-10-2023 End: 12-14-2023 Outreach Lab CHI DURAN SOC[employer]IA MARKETING SPECIALIST - [employer] [facility] Start: 10-12-2023 ambulatory CHI D DAPHNEP MIKA SOCIAL MEDIA MARKETING SPECIALIST - [employer] Facility:[facility] Start: 09-23-2023 End: 11-12-2023 ambulatory CHI DURAN SOC[employer] MARKETING SPECIALIST - [employer] Facility:[facility] Start: 09-23-2023 End: 11-12-2023 Cardiac Rehab RUBIO REBOLLEDO MD [facility] Start: 08-10-2023 End: 08-10-2023 ambulatory CHI DURAN [employer] MARKETING SPECIALIST - [employer] Facility:[facility] Start: 08-10-2023 End: 08-10-2023 Patient encounter procedure SIMI SIMMONS SOC[employer] MEDIA MARKETING SPECIALIST-[employer] [facility] Start: 07-30-2023 End: 07-30-2023 ambulatory CHI SERNAPKINS SOCIAL MEDIA MARKETING SPECIALIST - [employer] Facility:[facility] Start: 07-28-2023 End: 07-28-2023 ambulatory CHI DURAN SOC[employer] MEDIA MARKETING SPECIALIST - [employer] Facility:[facility] Start: 07-28-2023 End: 07-28-2023 Patient encounter procedure SIMI SIMMONS SOC[employer]IA MARKETING SPECIALIST-[employer] [facility] Start: 06-30-2023 End: 07-01-2023 Evaluation and management of inpatient RUBIO REBOLLEDO MD [facility] Start: 06-24-2023 End: 06-24-2023 ambulatory CHI SERNAPKINS SOC[employer] MEDIA MARKETING SPECIALIST - [employer] Facility:[facility] Start: 06-24-2023 End: 06-24-2023 Patient encounter procedure SIMI SIMMONS SOC[employer] MEDIA MARKETING SPECIALIST-[employer] [facility] Start: 12-20-2023 ambulatory SIMI SIMMONS SOC[employer]IA MARKETING SPECIALIST-[employer] Facility:[facility] Start: 05-28-2023 End: 05-28-2023 ambulatory CHI DURAN SOC[employer] MEDIA MARKETING SPECIALIST - [employer] Facility:[facility] Start: 05-28-2023 End: 05-28-2023 Patient encounter procedure SIMI SIMMONS SOCIAL MEDIA MARKETING SPECIALIST-[employer] [facility] Start: 05-27-2023 End: 05-27-2023 ambulatory CHI DURAN SOC[employer] MEDIA MARKETING SPECIALIST - [employer] Facility:[facility] Start: 05-22-2023 End: 05-22-2023 ambulatory CHI DURAN SOC[employer] MEDIA MARKETING SPECIALIST - [employer] Facility:[facility] Start: 05-22-2023 End: 05-22-2023 Patient encounter procedure CHI DURAN SOC[employer] MEDIA MARKETING SPECIALIST - [employer] [facility] Start: 05-19-2023 End: 05-21-2023 Evaluation and management of inpatient DR GEO BETH MD Facility:[facility] Start: 05-19-2023 End: 05-19-2023 ambulatory SHRAVAN VEGA MD Facility:[facility] Start: 05-19-2023 End: 05-19-2023 Patient encounter procedure ABISAI JAIN MD [facility] Start: 12-29-2022 End: 01-02-2023 Outreach Lab JAZ BADILLO SOCIAL MEDIA MARKETING SPECIALIST-[employer] [facility] Start: 11-20-2022 End: 11-20-[address] GREGORIO NEAL MD [facility] Start: 08-05-2022 End: 08-05-2022 Patient encounter procedure [facility], Specimen Start: 08-05-2022 End: 08-05-2022 ambulatory Chi Duran [employer] [facility] Work Phone: Start: 05-23-2022 End: 05-23-2022 Patient encounter procedure CHI DURAN SOC[employer] MEDIA MARKETING SPECIALIST - [employer] [facility] Start: 09-02-2021 End: 09-02-2021 Patient encounter procedure CHI DURAN SOC[employer] MEDIA MARKETING SPECIALIST - [employer] [facility] Start: 08-26-2021 End: 08-26-2021 Patient encounter procedure ADONIS MADDEN PA-C [facility] Start: 08-20-2021 End: 08-22-[address] DUC SCHERER MD [facility] Start: 08-09-2021 End: 08-09-[address] DUC SCHERER MD [facility] Start: 06-25-2021 End: 06-25-2021 Patient encounter procedure JOHN SAMUELS MD [facility] Procedures Date Procedure Procedure Detail Performing Clinician Start: 06-11-2024 PSA screening CHI PHAM SOC[employer]IA MARKETING SPECIALIST - [employer] Comment on above: Result Comment: Deepak PARKINSON methodology. According to the [employer], Serum PSA should decrease and [...] DIFF, GFR, A1C, CBC, CMP, LIPID, VIDH, [id number], ANEU #### [facility] [address] [place], [place] [address] #### PTH #### [address] [address] Start: 06-09-2024 PSA screening CHI PHAM [facility] Comment on above: Result Comment: Deepak PARKINSON methodology. According to the [employer], Serum PSA should decrease and [...] malignant disease. Start: 07-28-2023 Echocardiography SEAN DURAN [facility] Comment on above: Summary: 1. Left ventricle: [...] Transcatheter aortic valve implantation CHI DURAN APRN [facility] Comment on above: Procedures performed : Temporary pacing. Right common femoral angiography. Ascending aortography. Transcatheter aortic valve replacement. SUMMARY: Successful placement of a 26 mm Paredes valve. Start: 05-20-2023 Cardiac catheterization CHI DURAN APRN [facility] Comment on above: SUMMARY: 1. 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 - [employer] [facility] 04-17-2023 influenza virus vacc ine, unspecified formulation ABISAI JAIN MD [facility] 04-17-2023 RSV vaccine preF3, recombinant ABISAI JAIN MD [facility] 04-17-2023 SARS-CoV-2 (COVID-19 ) mRNA-[id number] ABISAI JAIN MD [facility] 10-24-2022 SARS-CoV-2 (CV19)mRNA-1273 bivalent vac ABISAI JAIN MD [facility] 03-30-2022 influenza virus vacc ine, unspecified formulation ABISAI JAIN MD [facility] 02-22-2022 SARS-CoV-2 (CV19)mRNA-1273 bivalent vac ABISAI JAIN MD [facility] 09-19-2021 SARS-CoV-2 (COVID-19 ) mRNA-1273 vaccine ABISAI JAIN MD [facility] 07-07-[address] DUC SCHERER MD [facility] 04-23-2021 influenza virus vacc ine, unspecified formulation JOHN SAMUELS MD [facility] 03-22-2021 SARS-CoV-2 mRNA (tozinameran) vaccine JOHN SAMUELS MD [facility] 08-23-2020 SARS-CoV-2 mRNA (tozinameran) vaccine JOHN SAMUELS MD [facility] 08-02-2020 SARS-CoV-2 mRNA (tozinameran) vaccine JOHN SAMUELS MD [facility] Comment on above: Result Comment: 2020: [id number] 07-25-2020 SARS-CoV-2 mRNA (tozinameran) vaccine JOHN SAMUELS MD [facility] 02-03-2020 influenza virus vacc ine, H1N1, live JOHN SAMUELS MD [facility] 03-05-2019 influenza virus vacc ine, unspecified formulation JOHN SAMUELS MD [facility] 12-02-2018 zoster vaccine, live JOHN CRYSTAL MD [facility] 04-30-2018 pneumococcal polysaccharide vaccine, 23 valent JOHN SAMUELS MD [facility] 04-22-2018 influenza virus vacc ine, unspecified formulation JOHN SAMUELS MD [facility] 02-20-2018 influenza virus vacc ine, unspecified formulation JOHN SAMUELS MD [facility] 02-22-2017 influenza virus vacc ine, unspecified formulation JOHN SAMUELS MD [facility] 09-02-2016 pneumococcal polysaccharide vaccine, 23 valent JOHN SAMUELS MD [facility] 02-08-2016 influenza virus vacc ine, unspecified formulation JOHN SAMUELS MD [facility] 02-04-2016 influenza virus vacc ine, unspecified formulation JOHN SAMUELS MD [facility] 02-13-2015 influenza virus vacc ine, unspecified formulation JOHN SAMUELS MD [facility] 02-06-2015 pneumococcal conjuga te vaccine, 13 valent JOHN SAMUELS MD [facility] 03-05-2014 tetanus and diphther ia toxoids, adsorbed, preservative free, for adult use (2 Lf of tetanus toxoid and 2 Lf of diphtheria toxoid) [facility] 02-20-2014 influenza virus vacc ine, unspecified formulation JOHN SAMUELS MD [facility] 06-23-2013 tetanus toxoid, redu perla diphtheria toxoid, and acellular pertussis vaccine, adsorbed JOHN SAMUELS MD [facility] Payers Date Payer Category Payer Medicare [id number] 2022 Self-pay 2022 Unknown [id number] 2019 Private Health Insurance [id number] 2011 Medicare [id number] 1945 Unknown [id number] 2.16.8 40.1.280625.3.579.2.627 1945 Unknown [id number] 2.16.8 40.1.645030.3.579.2.627 1946 Unknown [id number] 2.16.8 40.1.983211.3.579.2.627 1945 Unknown [id number] 2.16.8 40.1.951137.3.579.2.7 1946 Unknown [id number] 2.16.8 40.1.955384.3.579.2. 1945 Unknown [id number] 2.16.8 40.1.296470.3.579.2.627 1946 Unknown [id number] 2.16.8 40.1.889062.3.579.2.7 1946 Unknown [id number] 2.16.8 40.1.469642.3.579.2.7 1946 Unknown [id number] 2.16.8 40.1.900689.3.579.2.7 1946 Unknown [id number] 2.16.8 40.1.934860.3.579.2.627 1946 Unknown [id number] 2.16.8 40.1.171736.3.579.2.627 1946 Unknown [id number] 2.16.8 40.1.743655.3.579.2.627 1946 Unknown [id number] 2.16.8 40.1.754080.3.579.2.627 1946 Unknown [id number] 2.16.8 40.1.884038.3.579.2.627 1946 Unknown [id number] 2.16.8 40.1.134363.3.579.2.627 1946 Unknown [id number] 2.16.8 40.1.761656.3.579.2.627 1946 Unknown [id number] 2.16.8 40.1.898287.3.579.2.627 1946 Unknown [id number] 2.16.8 40.1.911782.3.579.2.627 1946 Unknown [id number] 2.16.8 40.1.029593.3.579.2.627 1946 Unknown [id number] 2.16.8 40.1.022654.3.579.2.627 1946 Unknown [id number] 2.16.8 40.1.174309.3.579.2.627 1946 Unknown [id number] 2.16.8 40.1.168587.3.579.2.627 Unknown [id number] 2.16.8 40.1.359664.3.579.2.462 Social History Date Type Detail Facility Start: 05-09-2019 End: 07-04-2024 Never smoked tobacco (finding) [facility] Comment on above: No smoke exposure Start: 1945 Sex Assigned At Male A [facility] Start: 03-05-2014 [facility] Sexual Orientation [facility] Start: 05-17-2019 Sex Male (finding) [facility] Functional Status Date Assessment Result Facility 07-01-2023 Functional Status Room check performed [facility] 07-01-2023 Functional Status [facility] 07-01-2023 Functional Status [facility] 06-30-2023 Functional Status [facility] 06-30-2023 Functional Status [facility] 06-30-2023 Functional Status Patient Identi fied Identification band, Verbal [facility] 06-30-2023 Functional Status Maintained [facility] Mental Status Date Assessment Result Facility 07-01-2023 Mental Status Oriented x 4 [facility] 07-01-2023 Mental Status [facility] 06-30-2023 Mental Status [facility] 06-30-2023 Mental Status [facility] Clinical Notes 08-21-2021 to 10-17-2024 Note Date & Type Note Facility 10-17-2024 Note Exam Date Time Procedure Performing Provider Status 10/17/24 3:[address] Abdomen/Pelvis w/Contrast ROMEO ARDON MD; Auth (Verified) [id number] ORIGINAL EXAMINATION: CT OF THE ABDOMEN AND [...] 10/17/2024 3:37:12 PM Ordering Provider: CHI DURAN [facility]01-10-2024 Note Discharge Instructions Thank you for allowing [facility] to assist you with your healthcare needs. The following is importantdischarge information regarding your hospital visit. Your Care Team CHI DURAN APRN - HEAD COOK Your Diagnosis Acute on chronic heart failure [...] - Please call Jinny (RN valve coordinator) [phone] or Simi (nurse practitioner) [phone] with questions/concerns regarding procedure or follow-up. Scheduled Follow-Up Appointments Appointment Type When With Where Contact InformationCV Procedure - AOH Echo 07/28/2023 01:00 PM [facility] [place] [facility] Radiology [phone] CV OV 09/07/2023 10:45 AM EDT [facility] Lab 12/10/2023 08:00 AM EDT [facility] OV Follow Up 12/14/2023 08:00 AM EDT CHI DURAN APRN - [facility] Follow Up Appointments Follow Up with Echocardiogram When In 4 weeks Why: Our office will mail you information regarding follow-up testing/office visit. This departmentis located in the first floor lobby of the [facility]. Please have lab work done around the same time, prior to your office visit. Where: Follow Up with RUBIO REBOLLEDO MD When In 4 weeks Why: TAVR follow up; echo and lab work prior to office visit Where: [address] [facility] [address]- [phone] Follow Up with [facility] will contact you for an appointment in 4-6weeks If you have any questions please call:[phone]. When Where: Follow Up with CHI DURAN When Within 1-2 days Where: [address] [place] [address]- Business (1) The Following Activity and Diet [...] by mouth Once a day Pickup at [facility]/pharmacy #[id number] Unchanged aspirin (aspirin 81 mg [...] a day Duration: 90 Days Pharmacy Information [facility]/pharmacy #[id number]: [address], [place] [phone] Please take this list to your next [...] cannot use soap and water, use hand bag sorter. ? Change your bandage as told by [...] even if your condition gets better. Take fkup-gmm-yfwinxf and prescription medicines only as told by [...] Document Reviewed: 02/13/2017 Elsevier Patient Education 2020 [employer] TRANSCATHETER AORTIC VALVE REPLACEMENT (TAVR) Discharge [...] need to report the following to your medical lab technician: Any draining or oozing from the site [...] to receive it can visit one of [facility] vaccine clinics. There are many vaccine clinic locations within the [facility]. For locations and available times, please visit [email or web address]/. It is important to note that some COVID mobile vaccine clinics are held outdoors and may be canceled in rainy or stormy conditions. To learn more about pediatric vaccinations (ages 5-11), we invite you to visit the [facility] webpage. [email or web address]/[email or web address] [email or web address] learn more about the COVID-19 vaccine, we invite you to visit the CDC website for a list of frequently asked questions.https://www.cdc.gov/coronavirus/2019-ncov/vaccines/faq.html [facility] Patient Portal Access Instructions: Stay connected with your healthcare team and access your personal medical information anytime with the [facility] Patient Portal. Please follow the directions below to create your [facility] account: 1.Access the email account you provided upon registration to the hospital/physician office.2.Look for an invitation email from [facility].3.Open the email and access the invitation link: AcceptInvitation to [employer].4.Fill in the required montesinos to create your account. To access your account, visit [email or web address]. Click the blue button labeled Access Patient Portal and then log in with the username and password that you created in the steps above. You will be able to view your test results, lab results, a summary of your visits, upcoming appointments and more. There is also a convenient messaging option where you can send secure messages to your p [employer]. In addition, you will have the ability to download any documents or summaries to your computer and/or send the information securely to a physician. Remember that your healthcare information is confidential, so carefully consider who you will allowto register on the [facility] Patient Portal for access to your information. You can also access the [facility] Patient Portal on the [facility]. Simply click on Patient Portal and then log into your account. If you would like to receive a full copy of your medical records, please contact the [facility] Medical Records Department by calling [phone], Thursday through Thursday between 8 a.m. and [...] Call your local pharmacy or go to http://bit.ly/5X8Ky1n to find one close to you.3.Make use of household items: Use cat litter or old coffee grounds to dispose medications if other options arenot available. Mix your drugs with these household products, seal them in an airtight container andthrow it into the garbage. Call [facility]: [phone] to be sure your drugs can be [...] Signatures Patient Education Materials Incision Care, Adult, Pkcn-ao-Ahya 3- SH TRANSCATHETER AORTIC VALVE REPLACEMENT (TAVR) Discharge Instructions 07/06/2018(CUSTOM) Medication Leaflets My discharge plan and instructions have been reviewed and explained to me and IMARITZA JAMES W understand my current condition and have read and understand these discharge instructions. I have receiveda written copy of the plan/instructions. If I have questions, I am aware that I should contact my do ctor. Patient/Investigative Reporter Signature: Date/Time: Relationship to Patient: Witness Name/Signature: Date/Time: [id number] Note* Exam Date Time Procedure Performing Provider Status 07/01/23 8:40 AM Echocardiogram, Adult - CV Auth (Verified) [facility] 01-10-2024 Hospital Discharge instructions Patient Education 07/01/2023 03:30:18 Incision Care, Adult, Gtgj-rz-Rxbk Incision Care, Adult An incision is a [...] cannot use soap and water, use hand bag sorter. ?Change your bandage as told by your [...] even if your condition gets better. Take wxay-xox-mhayeot and prescription medicines only as told by [...] 08/30/2012 Document Revised: 10/26/2017 Document Reviewed: 02/13/2017 [employer] Patient Education 2020 [employer] 07/01/2023 03:30:11 3- TRANSCATHETER AORTIC VALVE [...] need to report the following to your medical lab technician: Any draining or oozing from the site [...] in the first floor lobby of the [facility]. Please have lab work done around the same time, prior to your office visit. With:RUBIO REBOLLEDO MD Address: [address] [place] [address] [address] [place] [phone] When:Within 4 Week(s) Comments:TAVR follow up; echo and lab work prior to office visit With:[facility] will contact you for an appointment in 4- 6weeks If you have any questions please call:[phone]. Address: When: Unknown With:CHI DURAN Address: [address] [facility] [place] [address]- Business (1) When:1-2 days [facility] 01-09-2024 Note* Exam Date Time Procedure Performing Provider Status 06/30/23 2:16 PM Echocardiogram, Adult - CV Auth (Verified) [facility] 01-09-2024 NoteSINUS RHYTHM VENTRICULAR PREMATURE COMPLEX BORDERLINE PROLONGED [place] INTERVAL PROBABLE LATERAL INFARCT, AGE INDETERMINATE Electronic Signature: ELLE BARRETT MD 07/01/2023 14:26:49[facility] 01-09-2024 Note* Exam Date Time Procedure Performing Provider Status 06/30/23 12:16 PM Transcatheter Aortic Valve Replacement-C Auth (Verified) [facility] 01-09-2024 NoteSINUS RHYTHM BORDERLINE PROLONGED [place] INTERVAL PROBABLE LATERAL INFARCT, AGE INDETERMINATE ABNRM T, CONSIDER ISCHEMIA, ANTEROLATERAL LDS Electronic Signature: ELLE BARRETT MD 07/01/2023 14:26:26[facility] 11-28-2023 Evaluation + Plan noteExtracted from: Title:History and Physical Author:SHRAVAN VEGA MD Date:05/19/23 1. CAD, positive stress test [...] Appointments Appointment Date:05/21/2023 09:15:00 AM Scheduled Provider: [facility] Appointment Type:PC Nurse Lab Appointment Date:05/25/2023 08:20:00 AM Scheduled Provider:CHI DURAN APRN, CNP Location:[facility] Appointment Type:PC OV Follow Up Appointment [...] Chest 2 Views (PA & Lateral) 01/06/23 [facility] 11-28-2023 Note Date of Service 05/19/23 [...] SHRAVAN VEGA MD on 05/19/2023 11:23 AM [id number] History and physical note Date of Service 05/19/23 Chief Complaint Exertional dyspnea x 6 months History of Present Illness Patient is a 77-year-old gentleman who is being admitted to same-day cardiac unit for [facility] followinga positive nuclear stress test earlier this morning. 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 He follows up with Dr. Jain at [facility] office with last visit being on [...] patient, we decided to admit him for [facility]. Review of Systems CONSTITUTIONAL: Patient denies fevers, [...] Arthritis CAD (coronary artery disease) CAD IN [place] Chronic left hip pain CKD (chronic [...] Domestic Concerns: None. Living situation: Home/Independent. 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 Lives In: Multilevel home, Split level [...] SHRAVAN VEGA MD on 05/19/2023 11:52 AM [id number] History and physical note Date of Service [...] He follows up with Dr. Jain at [facility] office with last visit being on [...] Arthritis CAD (coronary artery disease) CAD IN [place] Chronic left hip pain CKD (chronic [...] Domestic Concerns: None. Living situation: Home/Independent. 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 Lives In: Multilevel home, Split level [...] SHRAVAN VEGA MD on 05/19/2023 11:52 AM [id number] Note ORIGINAL EXAMINATION: CARDIAC SPECT05/19/2023 10:37 am [...] Sign Date: 05/19/2023 11:04:17 AM Ordering Provider: [facility]11-28-2023 Note Date of Service 05/19/23 Procedure: Exercise [...] SHRAVAN VEGA MD on 05/19/2023 11:23 AM [id number] Hospital Discharge instructions Patient Education 08/21/2021 07:43:11 5 - [facility] Post-op Instruction 01/2017 (63721) [facility] Post-operative Instructions PLEASE FOLLOW [facility] POST-OP INSTRUCTIONS GIVEN WATCH FOR SIGNS OF INFECTION: call the office ([phone]) if experencing any of the following: (Usually [...] on your follow up instructions. Form: 338A (68247) R: 10/26 Follow Up Care 07/03/2021 15:03:14 With:CHI DURAN APRN, CNP Address: [address] [place] [id number]- When:08/29/2021 08:40:00 Comments:Follow-up as needed With:[facility] Address: [address] [place] [phone]- [phone] When:08/23/2021 13:30:00 Comments:This is your first physical therapy appointment. Follow-up as scheduled. With:ADONIS MADDEN PA-C, Orthopedic, Orthopedic Address: [facility] [address] [place] [address]- When:09/02/2021 08:45:00 Comments:This is your post-op appointment. Follow-up as scheduled. [facility] Evaluation + Plan note Future Appointments Appointment [...] Intact 11/29/21 * Complete Metabolic Panel 11/29/21 [facility] Evaluation + Plan note Future Appointments Appointment [...] Intact 11/29/21 * Complete Metabolic Panel 11/29/21 [facility] Evaluation + Plan note Future Appointments Appointment Date:08/29/2021 08:40:00 AM Scheduled Provider:CHI DURAN APRN, CNP Location:[facility] Appointment Type: OV Hospital Follow-Up Appointment Date:11/28/2021 08:15:00 AM Scheduled Provider: Location:[facility] Appointment Type:PC Nurse Lab Appointment Date:12/06/2021 08:20:00 AM Scheduled Provider:CHI DURAN APRN, CNP [facility] Appointment Type:PC OV Follow Up Appointment Date:04/24/2022 08:30:00 AM Scheduled Provider: Location:[facility] Appointment Type:CV OV Future Scheduled Tests Laboratory* Renin, Plasma 11/29/21 * Prostate Specific Antigen 11/29/21 * Thyroid Stimulating Hormone 11/29/21 * Complete Blood Count 11/29/21 * Lipid Profile 11/29/21 * PTH, Intact 11/29/21 * Complete Metabolic Panel 11/29/21 [facility] Evaluation + Plan note Future Appointments Appointment [...] Intact 11/29/21 * Complete Metabolic Panel 11/29/21 [facility] Betyahaluation + Plan note Future Appointments Appointment Date:05/29/2022 08:20:00 AM Scheduled Provider:CHI DURAN APRN, CNP Location:[facility] Appointment Type:PC OV Appointment Date:04/30/2023 08:30:00 AM Scheduled Provider: Location:[facility] Appointment Type:CV OV Future Scheduled Tests Laboratory* Renin, Plasma 11/29/21 * Microalbumin Level Urine 06/14/22 [facility] evaluation + Plan note Future Appointments Appointment Date:11/24/2022 08:20:00 AM Scheduled Provider:CHI DURAN APRN, CNP Location:[facility] Appointment Type:PC OV Follow Up Appointment Date:04/30/2023 02:00:00 PM Scheduled Provider: Location:[facility] Appointment Type:CV OV Future Scheduled Tests Laboratory* Renin, Plasma 11/29/21 * Microalbumin Level Urine 06/14/22 * Microalbumin Level Urine 11/27/22 [facility] Betyahaluation + Plan note Future Appointments Appointment Date:04/30/2023 02:00:00 PM Scheduled Provider: Location:[facility] Appointment Type:CV OV Appointment Date:05/21/2023 09:15:00 AM Scheduled Provider: Location:[facility] Appointment Type:PC Nurse Lab Appointment Date:05/25/2023 08:20:00 AM Scheduled Provider:CHI DURAN APRN, CNP [facility] Appointment Type:PC OV Follow Up Future Scheduled Tests Laboratory* Prostate Specific Antigen 05/26/23 * A1C Hemoglobin 05/26/23 * Complete Blood Count 05/26/23 * Lipid Profile 05/26/23 * Albumin/Creatinine Ratio, Random Urine 05/26/23 * Microalbumin Level Urine 06/14/22 * Microalbumin Level Urine 11/27/22 * Complete Metabolic Panel 05/26/23 [facility] Evaluation + Plan note Future Appointments Appointment Date:05/25/2023 11:00:00 AM Scheduled Provider:CHI DURAN APRN, CNP Location:[facility] Appointment Type:[facility] Hospital Follow-Up Appointment Date:06/04/2023 03:00:00 PM Scheduled Provider:LO MOORE MD Location:[facility] Appointment Type:CTS WATER FILTER CLEANER Outpatient Consult Appointment Date:06/18/2023 03:30:00 PM Scheduled [...] & Lateral) 01/06/23 * XR Panorex/Orthopantogram 05/21/23 [facility] Evaluation + Plan note Future Appointments Appointment Date:06/04/2023 03:00:00 PM Scheduled Provider:LO MOORE MD Location:[facility] Appointment Type:CTS WATER FILTER CLEANER Outpatient Consult Appointment Date:06/10/2023 01:00:00 PM Scheduled [...] Chest 2 Views (PA & Lateral) 01/06/23 [facility] Evaluation + Plan note Future Appointments [...] Chest 2 Views (PA & Lateral) 01/06/23 [facility] Evaluation + Plan note Future Appointments Appointment [...] Chest 2 Views (PA & Lateral) 01/06/23 [facility] Evaluation + Plan note Future Appointments Appointment Date:08/07/2023 10:00:00 AM Scheduled Provider:SIMI SIMMONS Location:[facility] Appointment Type:CV OV Appointment Date:09/07/2023 10:45:00 AM Scheduled Provider: Location:[facility] Appointment Type:CV OV Appointment Date:12/10/2023 08:00:00 AM Scheduled Provider: Location:[facility] Appointment Type:PC Nurse Lab Appointment Date:12/14/2023 08:00:00 AM Scheduled Provider:HCI DURAN APRN, CNP Location:[facility] Appointment Type:PC [...] Chest 2 Views (PA & Lateral) 01/06/23 [facility] Evaluation + Plan note Future Appointments Appointment Date:09/07/2023 10:45:00 AM Scheduled Provider: Location:[facility] Appointment Type:CV OV Appointment Date:10/22/2023 08:00:00 AM Scheduled Provider: Location:[facility] Appointment Type:Echo - Echocardiogram Adult Appointment Date:12/10/2023 08:00:00 AM Scheduled Provider: Location:[facility] Appointment Type:PC Nurse Lab Appointment Date:12/14/2023 08:00:00 AM Scheduled Provider:CHI DURAN APRN [facility] Location:[facility] Appointment Type:PC OV Follow Up [...] Chest 2 Views (PA & Lateral) 01/06/23 [facility] Evaluation + Plan note Future Appointments Appointment [...] Chest 2 Views (PA & Lateral) 01/06/23 [facility] Evaluation + Plan note Future Appointments Appointment Date:05/02/2024 01:00:00 PM Scheduled Provider: Location:[facility] Appointment Type:CV OV Appointment Date:06/09/2024 08:15:00 AM Scheduled Provider: [facility] Appointment Type:PC Nurse Lab Appointment Date:06/27/2024 08:00:00 AM Scheduled Provider:CHI DURAN APRN, CNP [facility] Appointment Type:PC OV Future Scheduled Tests [...] Chest 2 Views (PA & Lateral) 01/06/23 [facility] Evaluation + Plan note Future Appointments Appointment Date:05/02/2024 01:00:00 PM Scheduled Provider: Location:[facility] Appointment Type:CV OV Appointment Date:06/09/2024 08:15:00 AM Scheduled Provider: Location:[facility] Appointment Type:PC Nurse Lab Appointment Date:06/27/2024 08:00:00 AM Scheduled Provider:CHI DURAN APRN, CNP Location:[facility] Appointment Type:PC OV Future Scheduled Tests [...] Panel 06/14/24 * Complete Metabolic Panel 06/14/24 [facility] Evaluation + Plan note Future Appointments Appointment Date:06/27/2024 08:00:00 AM Scheduled Provider:CHI DURAN APRN, CNP Location:[facility] Appointment Type:PC OV Appointment Date:07/04/2024 01:30:00 [...] Level 06/14/24 * Complete Metabolic Panel 06/14/24 [facility] Evaluation + Plan note Future Appointments Appointment Date:07/04/2024 01:30:00 PM Scheduled Provider:TIFFANIE JAIN Location:[facility] Appointment Type:CV OV Future Scheduled [...] Panel 06/14/24 * Complete Metabolic Panel 12/25/24 [facility] Evaluation + Plan note Future Appointments Appointment Date:04/06/2025 08:30:00 AM Scheduled Provider:TIFFANIE JAIN Location:[facility] Appointment Type:CV OV Future Scheduled [...] Panel 06/14/24 * Complete Metabolic Panel 12/25/24 [facility] Evaluation + Plan note Future Appointments Appointment [...] Panel 06/14/24 * Complete Metabolic Panel 12/25/24 [facility] Evaluation + Plan note Future Appointments Appointment [...] Panel 10/17/24 * Complete Metabolic Panel 06/14/24 [facility] Evaluation noteNo assessment information available [facility] Work Phone: Hospital course Narrative No data available for this section [facility] Hospital Discharge instructions No data available for this section [facility] Progress note No data available for this section [facility] Advance Directives No Advanced Directives Records Found Advance Directive Response Recorded Date/ Time Living Will No March 05, 2014 7:28pm Power of Gum Dipper No February 7:28pm Summary Purpose Family History [...] 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: P4 Physician - Cardiology Member Role: Human Services Supervisor Address: Address: [address] [place] [address] [place] [address]- Name: CHI DURAN SOCIAL MEDIA MARKETING SPECIALIST - HEAD COOK Position: P4 Advanced Practice Nurse Member Role: Primary Care Physician Address: Address: [address] [place] [address] [place] [address]- [place] Care Team Related Persons Name: DAPHNIE BROWN Name: JR WOLFE Name: URIEL SALAS Address: Home [address] [place], [place] [id number] [place] Care Teams (unrecognized sec tion and content) Team Status: Active Member Role Status Dates Chi Duran Family Provider Active Chi Duran WATER FILTER CLEANER, WATER FILTER CLEANER-C Primary Care Provider Active Team Status: Inactive Member Role Status Dates Chi Duran WATER FILTER CLEANER, WATER FILTER CLEANER-C Primary Care Provider Active Dr. Gregorio Neal MD Attending Provider Active Goals (unrecognized section and content) Goals may be documented in a n alternate section (unrecognized sect ion and content) No Status Records FoundNo Status Records FoundNo Status Records Found INFORMATION SOURCE (unrecogn ized section and content) DATE CREATED AUTHOR 08/14/2022 [facility] DATE CREATED AUTHOR AUTHOR'S ORGANIZ ATION 02/24/2024 [facility] ([place]) DATE CREATED AUTHOR AUTHOR'S ORGANIZ ATION 11/08/2024 [facility] FOR RECORDS PERTAINING TO PATIENTS WHO ARE [...] BE BASED ON THE PRIMARY CLINICAL RECORDS. [facility]. provides no warranty or guarantee of the accuracy or completeness of information in this document.
[2024-11-26 22:24] LABS: Magnesium 2.4 mg/dL (1.5-2.2)
--- NOTE | 2024-11-26 23:07 | ECHOD_ITS ---
Reason For Study Reason For Study: TIA/CVA Procedure This was a 2D Doppler, Color Flow transthoracic echocardiogram. The study was technically difficult. Exam performed portable in patient room. Left Ventricle Normal size and thickness. The LV systolic function is normal. EF is 65 %. Normal diastology for age. Right Ventricle Normal right ventricle. Atria The left atrium is severely enlarged. Normal right atrium. Mitral Valve Mild mitral annular calcification. Trivial mitral valve insufficiency. Tricuspid Valve Trivial tricuspid valve insufficiency. Unable to estimate RV systolic pressure due to insufficient tricuspid regurgitant envelope. Aortic Valve Bioprosthetic aortic valve appears functioning normally. Mean peak gradient 11 mmHg. Pulmonic Valve The pulmonic valve is not well visualized. Great Vessels Normal sized aortic root. Pericardium/Pleural No pericardial effusion. MMode/2D Measurements & Calculations LVIDd: 3.8 cm IVSd: 0.98 cm LVOT diam: 2.0 cm LVIDs: 2.6 cm LVPWd: 0.90 cm LVOT area: 3.0 cm2 RVDd: 3.5 cm FS: 31.7 % LA dimension: 4.9 cm asc Aorta Diam: 3.4 cm LAV(MOD- bp): 53.5 ml LAV(MOD- bp) Indexed: 24.3 ml/m2 LAV(MOD- sp2): 56.9 ml LAV(MOD- sp4): 41.7 ml SV(MOD- sp4): 47.9 ml LVAd ap4: 29.9 cm2 LVAd ap2: 28.4 cm2 LVLd ap4: 8.7 cm LVLd ap2: 8.6 cm SI(MOD- sp4): 21.7 ml/m2 EDV(MOD-sp4): 84.1 ml EDV(MOD-sp2): 78.4 ml EDV(sp4-el): 87.2 ml EDV(sp2-el): 79.7 ml LVAs ap4: 17.8 cm2 LVAs ap2: 11.8 cm2 LVLs ap4: 7.7 cm LVLs ap2: 6.6 cm ESV(MOD-sp4): 36.2 ml ESV(MOD-sp2): 20.9 ml ESV(sp4-el): 34.9 ml ESV(sp2-el): 18.1 ml EF(MOD-sp4): 56.9 % EF(MOD-sp2): 73.4 % EF(sp4-el): 60.0 % SV(MOD-sp2): 57.5 ml SV(sp4-el): 52.3 ml Ao sinus diam: 3.6 cm SI(MOD-sp2): 26.1 ml/m2 LA dimension(2D): 4.5 cm LA A4 area: 16.6 cm2 RA A4 area: 12.6 cm2 TAPSE: 1.1 cm Time Measurements MV dec time: 0.30 sec Doppler Measurements & Calculations MV E max gabriel: 70.7 cm/sec Lat Peak E' Gabriel: 8.5 cm/sec Med Peak E' Gabriel: 7.7 cm/sec MV A max gabriel: 86.0 cm/sec E/E' lat: 8.4 E/E' med: 9.2 MV E/A: 0.82 MV dec slope: 238.3 cm/sec2 Ao V2 max: 225.0 cm/sec LV V1 max: 154.9 cm/sec Ao max P.3 mmHg LV V1 max P.6 mmHg Ao V2 mean: 160.0 cm/sec LV V1 mean P.6 mmHg Ao mean P.4 mmHg LV V1 mean: 124.5 cm/sec Ao V2 VTI: 48.3 cm LV V1 VTI: 35.5 cm AV (velocity ratio): 0.74 EL(I,D): 2.2 cm2 EL(V,D): 2.1 cm2 SV(LVOT): 107.4 ml PA V2 max: 98.3 cm/sec ECHO/Echo Complete Interpretation Summary The LV systolic function is normal. EF is 65 %. The left atrium is severely enlarged. Bioprosthetic aortic valve appears functioning normally. Mean peak gradient 11 mmHg. Ordering Physician: Josefa Roberts Performed By: Ximena Williamson RDCS
[2024-11-26] MEDS: 0.9% Normal Saline (1000mL) 1,000 ML 100 ML IV (23:50)
[2024-11-27] VITALS (7 sets, daily range): BP systolic 108–125; BP diastolic 70–78; PULSE 53–65; RESP 14–16; TEMP 36.1–36.8; O2SAT 95–100; BMI 28.0
[2024-11-27 00:11] LABS: Troponin T High Sens 2 HR 34 ng/L (<=22)
[2024-11-27 01:56] LABS: Troponin T High Sens 4 HR 34 ng/L (<=22)
[2024-11-27 05:02] LABS: Absolute Lymphocyte Count 0.74 X10^3/uL (0.83-4.51); Absolute Neutrophil Count 2.3 X10^3/uL (2.0-7.7); Basophil# 0.01 X10^3/uL; Basophil% 0.3 % (0-1); Eosinophil# 0.12 X10^3/uL; Eosinophils% 3.5 % (0-5); Hematocrit 29.1 % (40-54); Lymphocyte # 0.74 X10^3/ul (0.83-4.51); Lymphocyte % 21.6 % (19-41); Mean Corp Hgb Conc 34.4 g/dL (32-36); Mean Corpuscular Hgb 34.6 pg (27.0-32.0); Mean Corpuscular Volume 100.7 fL (80-94); Monocyte# 0.28 X10^3/uL; Monocyte% 8.2 % (0-10); NRBC Flagged by Analyzer 0 % (0-5); Neutrophil # 2.26 X10^3/uL (2.7-7.7); Neutrophil % 66.1 % (47-70); Platelet Count 125 K/mm3 (150-450); RBC Distribution Width CV 14.1 % (11.6-14.6); RBC Distribution Width SD 51.3 fl (35.1-43.9); Red Blood Count 2.89 M/mm3 (4.6-6.2); White Blood Count 3.4 K/mm3 (4.4-11.0)
[2024-11-27 05:34] LABS: ALB/GLOB Ratio 1.7 RATIO (0.9-2.4); AST(SGOT) 17 U/L (<=37); Alanine Aminotransfer ALT/SGPT 14 U/L (<=46); Albumin, Serum 3.8 g/dL (3.4-4.8); Alkaline Phosphatase 81 U/L (40-129); Anion Gap 11 (5-15); BUN 30 mg/dL (4-19); BUN/Creat Ratio 14.9 RATIO (10-20); Carbon Dioxide 22.3 mmol/L (21.0-32.0); Chloride 105 mmol/L (98-108); Cholesterol 133 mg/dL (<=200); Creatinine, Serum 2.01 mg/dL (0.70-1.20); EST Glomerular Filtration Rate 33 (>60); Estimated Creatinine Clearance 37.09 ml/min (50-250); Globulin 2.2 g/dL (2.2-4.2); Glucose 96 mg/dL (70-99); High Density Lipoprotein 38 mg/dL; Low Density Lipoprotein Calc. 75 mg/dL; Sodium Level 138 mmol/L (133-145); Total Bilirubin 0.61 mg/dL (0.00-1.30); Triglycerides 101 mg/dL; Very Low Density Lipoprotein 20 mg/dL (5-40); cholesterol:hdl ratio screen 3.54
--- NOTE | 2024-11-27 09:57 | STROKE.PNOTE ---
Objective Data Objective Data Vital Signs: Vital Signs Temp Pulse Resp BP Pulse Ox O2 Del Method 97.9 F 63 14 119/78 95 Room Air 11/27/24 07:03 11/27/24 07:03 11/27/24 07:03 11/27/24 07:03 11/27/24 07:03 11/27/24 08:23 Oxygen Delivery Method Room Air Weight: 96.6 kg Body Mass Index (BMI) 28.0 Lab / Micro Data 11/27/24 04:00 11/27/24 04:00 Labs: Laboratory Results - last 24 hr 11/26/24 20:49: POC Glucose 97 11/26/24 20:50: WBC 6.2, RBC 3.43 L, Hgb 12.0 L, Hct 34.6 L, MCV 100.9 H, MCH 35.0 H, MCHC 34.7, RDW Std Deviation 52.6 H, RDW Coeff of Michelle 14.2, Plt Count 159, MPV 8.7, Immature Gran % (Auto) 0.300, Neut % (Auto) 64.9, Lymph % (Auto) 22.9, Vance % (Auto) 9.3, Eos % (Auto) 2.4, Baso % (Auto) 0.2, Absolute Neuts (auto) 4.0, Absolute Lymphs (auto) 1.41, Nucleated RBC % 0, PT 13.8, INR 1.0, APTT 26.8, Sodium 138, Potassium 4.1, Chloride 103, Carbon Dioxide 23.4, Anion Gap 12, BUN 33 H, Creatinine 2.24 H, Estim Creat Clear Calc 33.36 L, Est GFR (MDRD) Non-Af 29 L, BUN/Creatinine Ratio 14.7, Glucose 96, Calcium 9.7, Magnesium 2.4 H, Troponin T High Sens 35 H 11/26/24 23:12: Troponin T Hi Sens 2 Hr 34 H 11/27/24 01:03: Troponin T Hi Sens 4Hr 34 H 11/27/24 04:00: WBC 3.4 L, RBC 2.89 L, Hgb 10.0 L, Hct 29.1 L, MCV 100.7 H, MCH 34.6 H, MCHC 34.4, RDW Std Deviation 51.3 H, RDW Coeff of Michelle 14.1, Plt Count 125 L, MPV 9.0, Immature Gran % (Auto) 0.300, Neut % (Auto) 66.1, Lymph % (Auto) 21.6, Vance % (Auto) 8.2, Eos % (Auto) 3.5, Baso % (Auto) 0.3, Absolute Neuts (auto) 2.3, Absolute Lymphs (auto) 0.74 L, Nucleated RBC % 0, Sodium 138, Potassium 4.0, Chloride 105, Carbon Dioxide 22.3, Anion Gap 11, BUN 30 H, Creatinine 2.01 H, Estim Creat Clear Calc 37.09 L, Est GFR (MDRD) Non-Af 33 L, BUN/Creatinine Ratio 14.9, Glucose 96, Calcium 9.0, Total Bilirubin 0.61, AST 17, ALT 14, Alkaline Phosphatase 81, Total Protein 6.0, Albumin 3.8, Globulin 2.2, Albumin/Globulin Ratio 1.7, Triglycerides 101, Cholesterol 133, LDL Cholesterol, Calc 75, VLDL Cholesterol 20, HDL Cholesterol 38 L, Cholesterol/HDL Ratio 3.54, TSH 1.270 Radiography Diagnostic Testing: Radiology Impression Brain CT 11/26/24 20:54 IMPRESSION: No acute intracranial finding. Reading Location: [facility] Head/Neck CTA 11/26/24 20:54 IMPRESSION: 1. No large vessel occlusion, aneurysm or AVM. 2. Mild scattered calcific plaque as described. Dr. Diaz discussed these findings via telephone with Dr. Estrada at 9:30 p.m. on 11/26/2024. Reading Location: [facility] Chest X-Ray 11/26/24 21:25 IMPRESSION: No Acute Findings. Reading Location: [facility] Physical Exam Neuro Neuro Narrative: Neurological examination: General: The patient appears nutritionally appropriate, well-groomed, and appears comfortable in no acute distress. Mental Status: The patient?s mental status was normal including orientation. Cranial nerves: Visual montesinos full, extra-ocular motion was intact. Face motion symmetric. Bilateral shoulder shrug was intact. Tongue was midline with normal movement. There was no dysarthria. Motor: Normal strength in all four extremities. No pronator drift. Sensation: Intact light touch bilaterally. Coordination: Bilateral finger to nose was normal. There was no dysmetria. Gait: Deferred. Subject: Neurology Subjective Patient feels left arm is back to normal this AM. He asked if he could discharge home today. Assessment and Plan: Stroke Assessment/Plan IVAN SALAS is a 79 year old RH male with history of HTN, HL, CAD s/p CABG on Asa who on 11/26/24 at 830p developed left arm weakness. He presented to [facility] where NIHSS-0. CT brain negative. CT angiogram head/neck negative. LDL 119. Episode lasted 3 hour and then resolved. He was loaded with dAPT in ER. He is on Asa/plavix, liptor 80, and lovenox SQ. Neurological examination shows nonfocal exam, NIHSS-0. ASSESSMENT/PLAN: TIA 1) Recommend MRI and TTE to complete TIA work-up. If patient declines inpatient stay can order as outpatient 2) Agree with dAPT. Continue daily anti-platelet medication dAPT (Asa/plavix x 21 days per [facility] protocol) and then discontinue Plavix and continue Asa only thereafter 3) Continue vascular risk factor modification. On lipitor 80. 3) Follow-up in outpatient neurology clinic Primary team messaged recommendations on backline. Yoli Tinoco MD NIHSS NIHSS Nursing Documentation NIHSS Nursing Documentation: NIHSS: Ischemic Stroke/TIA Start: 11/26/24 23:07 Text: For PCU Patients: NIH and Neuro Check every 4 Status: Active hours, PRN and with change in RN caregiver. Freq: [id number] Protocol: Activity Type Activity Date Activity User E-sign Co-sign Detail Recorded Client Recorded Date Recorded By Document 11/27/24 07:03 EY [id number] 11/27/24 07:03 EY 11/27/24 07:03 NIH Stroke Scale [NIHSS] A score of 0 is normal or asymptomatic . Total possible score is 42. Inpatient: RN or Physician to activate a stroke alert for onset of new stroke symptoms or with NIHSS increase >/= 3 points. Following change in neurological status, NIHSS will be performed per physician order or more frequently PRN. -1a. Level of Consciousness 0 - Alert; keenly responsive -1b. LOC Questions 0 - Answers BOTH questions correctly -1c. LOC Commands 0 - Performs BOTH tasks correctly -2. Best Gaze 0 - Normal -3. Visual 0 - No visual loss -4. Facial Palsy 0 - Normal symmetrical movements -5a. Left Arm 0 - No drift; arm holds 90 ( or 45) degrees for full 10 seconds -5b. Right Arm 0 - No drift; arm holds 90 ( or 45) degrees for full 10 seconds -6a. Left Leg 0 - No drift; leg holds 30- degree position for full 5 seconds -6b. Right Leg 0 - No drift; leg holds 30- degree position for full 5 seconds -7. Limb Ataxia 0 - Absent -8. Sensory 0 - Normal; no sensory loss -9. Best Language 0 - No aphasia; normal -10. Dysarthria 0 - Normal -11. Extinction and Inattention 0 - No abnormality -Total 0 Query Text:A score of 0 is normal or asymptomatic. Total possible score is 42 . ED: Notify Physician for NIHSS increase by > / = 3 points. Inpatient: RN or Physician to activate a stroke alert for NIHSS increase of > / = 3 points. Coma Scale [Assess] -Eye Opening Spontaneous -Motor Obeys Commands -Verbal Oriented [Total] -Coma Scale Total 15 NIHSS 1a. Level of Consciousness: 0 - Alert; keenly responsive 1b. LOC Questions: 0 - Answers BOTH questions correctly 1c. LOC Commands: 0 - Performs BOTH tasks correctly 2. Best Gaze: 0 - Normal 3. Visual: 0 - No visual loss 4. Facial Palsy: 0 - Normal symmetrical movements 5a. Left Arm: 0 - No drift; arm holds 90 (or 45) degrees for full 10 seconds 5b. Right Arm: 0 - No drift; arm holds 90 (or 45) degrees for full 10 seconds 6a. Left Le - No drift; leg holds 30-degree position for full 5 seconds 6b. Right Le - No drift; leg holds 30-degree position for full 5 seconds 7. Limb Ataxia: 0 - Absent 8. Sensory: 0 - Normal; no sensory loss 9. Best Language: 0 - No aphasia; normal 10. Dysarthria: 0 - Normal 11. Extinction and Inattention: 0 - No abnormality Total: 0
[2024-11-27] MEDS: Tamsulosin HCl 0.4 MG Capsule PO (09:59)
[2024-11-27] MEDS: Enoxaparin 40 MG/0.4 ML Syringe SC (09:59)
[2024-11-27] MEDS: Aspirin 81 MG TAB.CHEW PO (09:59)
[2024-11-27] MEDS: Finasteride 5 MG Tablet PO (10:00)
[2024-11-27] MEDS: Clopidogrel Bisulfate 75 MG Tablet PO (10:00)
--- NOTE | 2024-11-27 14:39 | PN.HOSP_ITS ---
Reason for Visit Reason for Visit: Diagnoses Other symptoms and signs involving the musculoskeletal system (11/26/24) Subjective Subjective Patient was seen and examined today, had a long discussion with him and his and daughter, I gave him the choice of being discharged on dual antiplatelet therapy and a statin to follow-up and get an echocardiogram and MRI as an outpatient and to follow-up with neurology. The other option was to stay here and get the testing done tomorrow-patient opted to stay here and get the MRI and echocardiogram performed tomorrow. I also talked him about having a 30-day Holter monitor placed as an outpatient and he agreed to this. Objective Data Objective Data Vital Signs: Vital Signs Temp Pulse Resp BP Pulse Ox O2 Del Method 98.1 F 65 14 125/71 H 100 Room Air 11/27/24 10:58 11/27/24 10:58 11/27/24 10:58 11/27/24 10:58 11/27/24 10:58 11/27/24 10:58 Oxygen Delivery Method Room Air Weight: 96.6 kg Body Mass Index (BMI) 28.0 Intake & Output: Intake and Output for Last 24 Hours 11/25/24 11/26/24 11/27/24 23:59 23:59 23:59 Intake Total 1000 / 1000 Balance 1000 / 1000 Lab / Micro Data 11/27/24 04:00 11/27/24 04:00 Labs: Laboratory Results - last 24 hr 11/26/24 20:49: POC Glucose 97 11/26/24 20:50: WBC 6.2, RBC 3.43 L, Hgb 12.0 L, Hct 34.6 L, MCV 100.9 H, MCH 35.0 H, MCHC 34.7, RDW Std Deviation 52.6 H, RDW Coeff of Michelle 14.2, Plt Count 159, MPV 8.7, Immature Gran % (Auto) 0.300, Neut % (Auto) 64.9, Lymph % (Auto) 22.9, Woodruff % (Auto) 9.3, Eos % (Auto) 2.4, Baso % (Auto) 0.2, Absolute Neuts (auto) 4.0, Absolute Lymphs (auto) 1.41, Nucleated RBC % 0, PT 13.8, INR 1.0, APTT 26.8, Sodium 138, Potassium 4.1, Chloride 103, Carbon Dioxide 23.4, Anion Gap 12, BUN 33 H, Creatinine 2.24 H, Estim Creat Clear Calc 33.36 L, Est GFR (MDRD) Non-Af 29 L, BUN/Creatinine Ratio 14.7, Glucose 96, Calcium 9.7, M agnesium 2.4 H, Troponin T High Sens 35 H 11/26/24 23:12: Troponin T Hi Sens 2 Hr 34 H 11/27/24 01:03: Troponin T Hi Sens 4Hr 34 H 11/27/24 04:00: WBC 3.4 L, RBC 2.89 L, Hgb 10.0 L, Hct 29.1 L, MCV 100.7 H, MCH 34.6 H, MCHC 34.4, RDW Std Deviation 51.3 H, RDW Coeff of Michelle 14.1, Plt Count 125 L, MPV 9.0, Immature Gran % (Auto) 0.300, Neut % (Auto) 66.1, Lymph % (Auto) 21.6, Woodruff % (Auto) 8.2, Eos % (Auto) 3.5, Baso % (Auto) 0.3, Absolute Neuts (auto) 2.3, Absolute Lymphs (auto) 0.74 L, Nucleated RBC % 0, Sodium 138, Potassium 4.0, Chloride 105, Carbon Dioxide 22.3, Anion Gap 11, BUN 30 H, C reatinine 2.01 H, Estim Creat Clear Calc 37.09 L, Est GFR (MDRD) Non-Af 33 L, BUN/Creatinine Ratio 14.9, Glucose 96, Calcium 9.0, Total Bilirubin 0.61, AST 17, ALT 14, Alkaline Phosphatase 81, Total Protein 6.0, Albumin 3.8, Globulin 2.2, Albumin/Globulin Ratio 1.7, Triglycerides 101, Cholesterol 133, LDL Cholesterol, Calc 75, VLDL Cholesterol 20, HDL Cholesterol 38 L, Cholesterol/HDL Ratio 3.54, TSH 1.270 Radiography Diagnostic Testing: Radiology Impression Brain CT 11/26/24 20:54 IMPRESSION: No acute intracranial finding. Reading Location: [id number] Head/Neck CTA 11/26/24 20:54 IMPRESSION: 1. No large vessel occlusion, aneurysm or AVM. 2. Mild scattered calcific plaque as described. Dr. Diaz discussed these findings via telephone with Dr. Estrada at 9:30 p.m. on 11/26/2024. Reading Location: [facility] Chest X-Ray 11/26/24 21:25 IMPRESSION: No Acute Findings. Reading Location: [facility] Physical Exam Const alert, oriented x3, no apparent distress, average body habitus and healthy appearing General Appearance: cooperative, well kempt and well developed Orientation / Consciousness: awake, oriented to person, oriented to place and oriented to time HEENT normocephalic and moist oral mucous membranes Eyes PERRL, EOMs intact bilaterally and conjunctivae normal Neck supple, no JVD, thyroid normal and no carotid bruits General: trachea midline Resp normal respiratory effort and clear to auscultation bilaterally Auscultation: Negative for rales, rhonchi or wheezes Cardio regular rate, regular rhythm, no murmurs, no rub and no gallops GI normal to inspection, nondistended, normoactive bowel sounds, soft to palpation, non-tender and non-distended Extremity no clubbing, cyanosis or edema Skin no rashes or lesions noted General Skin Exam: no breakdown Neuro oriented x3, CN's II-XII intact bilaterally, moves all extremities, no focal motor deficits and no sensory deficits noted Sensorium / Orientation: awake and alert Speech: speech normal Psych affect normal Assessment & Plan Assessment/Plan (1) LUE weakness: PLAN: Plan 1. TIA-neurology has recommended the patient go on dual antiplatelet therapy and statin, other testing will be performed tomorrow, patient will have a 30-day event monitor ordered at the time of discharge. #2 hyperlipidemia-patient is on statin #3 BPH-patient is on Flomax and Proscar #4 essential hypertension-patient is on metoprolol Total clinical time spent by myself addressing the patient's medical issues, reviewing all of his data, and collaborating with patient's care team: 35 minutes Charges/Coding Visit Charges Inpatient E&M: 52936 Subs Hosp L2 NIHSS NIHSS Nursing Documentation NIHSS Nursing Documentation: NIHSS: Ischemic Stroke/TIA Start: 11/26/24 23:07 Text: For PCU Patients: NIH and Neuro Check every 4 Status: Active hours, PRN and with change in RN caregiver. Freq: [id number] Protocol: Activity Type Activity Date Activity User E-sign Co-sign Detail Recorded Client Recorded Date Recorded By Document 11/27/24 11:00 TWIN [id number] 11/27/24 12:09 TWIN 11/27/24 11:00 NIH Stroke Scale [NIHSS] A score of 0 is normal or asymptomatic . Total possible score is 42. Inpatient: RN or Physician to activate a stroke alert for onset of new stroke symptoms or with NIHSS increase >/= 3 points. Following change in neurological status, NIHSS will be performed per physician order or more frequently PRN. -1a. Level of Consciousness 0 - Alert; keenly responsive -1b. LOC Questions 0 - Answers BOTH questions correctly -1c. LOC Commands 0 - Performs BOTH tasks correctly -2. Best Gaze 0 - Normal -3. Visual 0 - No visual loss -4. Facial Palsy 0 - Normal symmetrical movements -5a. Left Arm 0 - No drift; arm holds 90 ( or 45) degrees for full 10 seconds -5b. Right Arm 0 - No drift; arm holds 90 ( or 45) degrees for full 10 seconds -6a. Left Leg 0 - No drift; leg holds 30- degree position for full 5 seconds -6b. Right Leg 0 - No drift; leg holds 30- degree position for full 5 seconds -7. Limb Ataxia 0 - Absent -8. Sensory 0 - Normal; no sensory loss -9. Best Language 0 - No aphasia; normal -10. Dysarthria 0 - Normal -11. Extinction and Inattention 0 - No abnormality -Total 0 Query Text:A score of 0 is normal or asymptomatic. Total possible score is 42 . ED: Notify Physician for NIHSS increase by > / = 3 points. Inpatient: RN or Physician to activate a stroke alert for NIHSS increase of > / = 3 points. Coma Scale [Assess] -Eye Opening Spontaneous -Motor Obeys Commands -Verbal Oriented [Total] -Coma Scale Total 15
[2024-11-27] MEDS: 0.9% Saline Lock 10 ML Syringe IV (22:32)
[2024-11-27] MEDS: Atorvastatin Calcium 80 MG Tablet PO (22:32)
[2024-11-28 00:44] VITALS: BMI 28.0
[2024-11-28 02:30] VITALS: BP 135/78; PULSE 72; RESP 14; TEMP 36.8; O2SAT 98
[2024-11-28 03:40] VITALS: BMI 28.0
[2024-11-28 06:30] VITALS: BP 123/78; PULSE 63; RESP 16; TEMP 36.6; O2SAT 98
[2024-11-28 07:52] LABS: Hemoglobin A1c 5.6 % (<=5.6)
--- NOTE | 2024-11-28 08:00 | MRI_ITS ---
PROCEDURE: BRAIN WITHOUT CONTRAST 11/28/2024 REASON FOR EXAM: CVA. Left arm weakness. TECHNIQUE: Noncontrast brain MRI. Multiplanar and multisequence images were obtained. COMPARISON: Contrast CT brain 2024 FINDINGS: Brain: No restricted diffusion. No intra-axial or extra-axial hemorrhage. No mass, mass effect or midline shift. Periventricular and deep white matter/FLAIR hyperintensities indicating chronic small-vessel ischemic disease. Ventricles: Prominent ventricles and sulci indicating involutional change. Major Intracranial Vessels: Normal vascular flow voids in the anterior circulation and vertebrobasilar system Sinuses: Mild mucosal thickening changes in the ethmoid air cells, left maxillary sinus Mastoids: Minimal right and left opacified air cells. No obvious nasal pharyngeal mass MRI/Brain without Contrast IMPRESSION: No restricted diffusion. No acute process. Age-related changes. Called report to Jovita Whitmore RN at 10:30 AM. Negative, no hemorrhage. [facility]
[2024-11-28] MEDS: Finasteride 5 MG Tablet PO (09:49)
[2024-11-28] MEDS: Clopidogrel Bisulfate 75 MG Tablet PO (09:49)
[2024-11-28] MEDS: Aspirin 81 MG TAB.CHEW PO (09:49)
[2024-11-28] MEDS: Tamsulosin HCl 0.4 MG Capsule PO (09:49)
[2024-11-28] MEDS: Enoxaparin 40 MG/0.4 ML Syringe SC (09:50)
[2024-11-28 10:15] VITALS: O2SAT 98
[2024-11-28 10:30] VITALS: BP 121/75; PULSE 70; RESP 17; TEMP 36.2; O2SAT 98
--- NOTE | 2024-11-28 10:41 | DCINST_ITS ---
Discharge Instructions Diet Discharge Diet: No restrictions DC O2, CPAP, BIPAP needs Home O2 Discharge instructions: No Dressing / Incision Discharge Activity: Return to Normal Activity Weight Bearing Status: Full weight bearing Follow Up Care Test Results: Test results from this visit will be discussed in further detail at your follow- up appointment, if applicable. Discharge Plan Admission Admit Date/Time: 11/26/24 21:50 Primary Reason for Your Visit: TIA Attending Provider: Thompson Payne Primary Care Provider: Alexei Duran NP Consulting Providers: Dick Montana; Zia Goldstein; Idalia Mitchell; Veronique Nice; Tori Rivera; Agusto Clay; Carissa Graham; Hernando Clifton; Austin Rivera; Samuel Mills; Anabel Schmitt; Vinay Rubin; Myesha Erickson; Layo Pittman; Ottoniel Vital; Jarad Meyer; July Dumont; Yariel Lin; Yoli Tinoco; Trevor Cummins; Josefa Roberts Discharge Orders/Prescriptions Prescriptions: New clopidogrel 75 mg Tablet 75 mg PO DAILY Qty: 21 0RF ezetimibe [Zetia] 10 mg tablet 10 mg PO DAILY Qty: 30 0RF Continued metoprolol succinate 25 mg tablet extended release 24 hr 12.5 mg PO DAILY rosuvastatin 40 mg tablet 40 mg PO DAILY aspirin 81 mg capsule 81 mg PO DAILY tamsulosin 0.4 mg capsule 0.4 mg PO DAILY finasteride 5 mg tablet 5 mg PO DAILY cholecalciferol (vitamin D3) [Vitamin D3] 25 mcg (1,000 unit) capsule 1,000 unit PO QDAY Other Ambulatory Orders: 30 Day Event Recorder Preventi (Routine) Timeframe: 1 Day Facility: [facility] - Location: Cardiovascular Services Ordered By: Dr. Thompson Payne Referrals / Follow Up: Jones Hummel MD [Non-Staff -Ordering Privileges] - See Referral Note (as scheduled) Alexei Duran NP, ORANGE PICKER MACHINE OPERATOR-C [Primary Care Provider] - Within 2 Weeks Disposition Disposition (needs filled in before D/C Order can be placed): Home, Self Care
--- NOTE | 2024-11-28 11:01 | PCM.DC.SUM ---
Providers Date of Admission: 11/26/24 Date of Discharge: 11/28/24 Primary Care Physician: Alexei Duran, TOSIN-Samir Consultations 11/26/24 23:07 Consult: Tele-Neurology Routine Consulting Provider: [facility] Reason for Consult: Acute Ischemic Stroke/TIA EMERGENT Consult: No MD Notified: Yes Date Notified: 11/26/24 Time Notified: 23:41 Method of Notification: Answering Service Nursing Unit Staff Notify [facility] of Tele-Neurology Consult: Yes Reason For Visit: TIA/CVA Diagnosis Discharge Diagnosis (1) LUE weakness: Status: Acute Code(s): R29.898 - Other symptoms and signs involving the musculoskeletal system Plan 1. TIA-neurology has recommended the patient go on dual antiplatelet therapy and statin, other testing will be performed tomorrow, patient will have a 30-day event monitor ordered at the time of discharge. #2 hyperlipidemia-patient is on statin #3 BPH-patient is on Flomax and Proscar #4 essential hypertension-patient is on metoprolol Total clinical time spent by myself addressing the patient's medical issues, reviewing all of his data, and collaborating with patient's care team: 35 minutes Medications at Discharge Home Medications aspirin 81 mg capsule 81 mg PO DAILY heart health 11/26/24 cholecalciferol (vitamin D3) 25 mcg (1,000 unit) capsule (Vitamin D3) 1,000 unit PO QDAY supplement 11/26/24 finasteride 5 mg tablet 5 mg PO DAILY prostate 11/26/24 metoprolol succinate 25 mg tablet,extended release 24 hr 12.5 mg PO DAILY blood pressure 11/26/24 rosuvastatin 40 mg tablet 40 mg PO DAILY cholesterol 11/26/24 tamsulosin 0.4 mg capsule 0.4 mg PO DAILY prostate 11/26/24 clopidogrel 75 mg tablet 75 mg PO DAILY #21 tabs 11/28/24 ezetimibe 10 mg tablet (Zetia) 10 mg PO DAILY #30 tabs 11/28/24 Hospital Course Operations None Procedures 2-D Echocardiogram Summary of Care Provided Minutes Spent on Discharge: 31 Hospital Course: This 79-year-old white male was seen in the emergency room at [facility] with complaints of left upper extremity weakness in his hand. Initial ED evaluation showed his stroke scale to be 2, CT of the brain showed no acute intracranial findings, CT of the head and neck showed no large vessel occlusion, stroke team was called, neurologist did not recommend tenecteplase but did recommend placing the patient on aspirin and Plavix. Repeat NIH scale was 0, the patient was placed in observation status on PCU and was seen by PT and OT as well as speech therapy. Patient underwent an echocardiogram which was unremarkable and an MRI which showed no abnormality. It was recommended that the patient continue with dual antiplatelet therapy for 21 days then drop off his Plavix. He also was to remain on his statin, his LDL cholesterol was mildly elevated and Zetia was added to his regimen at the time of discharge. A 30-day Holter monitor was also ordered. On 11/28/2024, patient was seen and examined: On examination he appeared in good health and spirits. Vital signs as documented. Skin warm and dry and without overt rashes. Neck without JVD, neck was supple, trachea midline, thyroid was normal. Lungs clear bilaterally, normal air movement was noted. Heart exam notable for regular rhythm, normal sounds and absence of murmurs, rubs or gallops. Abdomen unremarkable and without evidence of organomegaly, masses, or abdominal aortic enlargement. Bowel sounds are present, abdomen is not distended. Extremities nonedematous, no cyanosis was noted, no clubbing was noted. Neuro: Cranial nerves II through XII are grossly intact, no focal motor deficits were noted, sensation to light touch and pinprick intact, motor exam 5/5 throughout. Psych: Patient is alert and oriented x3, he does not appear anxious or depressed, he does not appear agitated. Patient was discharged home in stable condition on 11/28/2024, a 30-day event monitor was ordered for the patient as an outpatient. Weight / BMI Weight Weight: 96.3 kg Body Mass Index (BMI) 28.0 ABG / Lab / Microbiology Data 11/27/24 04:00 11/27/24 04:00 Laboratory: Laboratory Results - last 24 hr 11/27/24 04:00: Hemoglobin A1c 5.6 Radiography Diagnostic Testing: Radiology Impression Brain MRI 11/28/24 08:00 IMPRESSION: No restricted diffusion. No acute process. Age-related changes. Called report to Jovita Whitmore RN at 10:30 AM. Negative, no hemorrhage. Reading Location: [facility] D/C Instructions Discharge Diet: No restrictions Weight Bearing Status: Full weight bearing DC O2, CPAP, BIPAP Needs Home O2 Discharge instructions: No Meaningful Use Info Meaningful Use Meaningful Use Diagnoses (Choose all that apply): None applicable Ischemic Stroke Statin Dosing Therapy Reference: STATIN DOSE THERAPY REFERENCE: * Patients > 75 years receive moderate or high dose statin therapy. * Patients 75 years or YOUNGER should receive HIGH intensity statin dose unless contraindicated. You will be required to document reason for non-treatment if statin daily dose does not meet guidelines. HIGH DOSE STATIN THERAPY DAILY Atorvastatin > than or = to 40 mg Rosuvastatin > than or = to 20 mg Amlodipine + Atorvastatin > than or = to 2.5/40 mg Ezetimibe + Simvastatin 10/80 mg Simvastatin 80mg Discharge Plan Admission Admit Date/Time: 11/26/24 21:50 Primary Reason for Your Visit: TIA Attending Provider: Thompson Payne Primary Care Provider: Alexei Duran SUBSTATION DESIGNER Consulting Providers: Dick Montana; Zia Goldstein; Idalia Mitchell; Veronique Nice; Tori Rivera; Agusto Clay; Carissa Graham; Hernando Clifton; Austin Rivera; Samuel Mills; Anabel Schmitt; Vinay Rubin; Myesha Erickson; Layo Pittman; Ottoniel Vitalzat; Jarad Meyer; July Dumont; Yariel Lin; Yoli Tinoco; Trevor Cummins; Josefa Roberts Discharge Orders/Prescriptions Prescriptions: New clopidogrel 75 mg Tablet 75 mg PO DAILY Qty: 21 0RF ezetimibe [Zetia] 10 mg tablet 10 mg PO DAILY Qty: 30 0RF Continued metoprolol succinate 25 mg tablet extended release 24 hr 12.5 mg PO DAILY rosuvastatin 40 mg tablet 40 mg PO DAILY aspirin 81 mg capsule 81 mg PO DAILY tamsulosin 0.4 mg capsule 0.4 mg PO DAILY finasteride 5 mg tablet 5 mg PO DAILY cholecalciferol (vitamin D3) [Vitamin D3] 25 mcg (1,000 unit) capsule 1,000 unit PO QDAY Other Ambulatory Orders: 30 Day Event Recorder Preventi (Routine) Timeframe: 1 Day Facility: [facility] - Location: Cardiovascular Services Ordered By: Dr. Thompson Payne Referrals / Follow Up: Jones Hummel MD [Non-Staff -Ordering Privileges] - 12/15/24 9:30 am (Appointment is with SUBSTATION DESIGNER Madhuri Martinez. ) Alexei Duran SUBSTATION DESIGNER, SUBSTATION DESIGNER-C [Primary Care Provider] - Within 2 Weeks Disposition Disposition (needs filled in before D/C Order can be placed): Home, Self Care Charges/Coding Visit Charges Inpatient E&M: 87850 Disch Hosp >30min
--- NOTE | 2024-11-28 11:14 | CASEMGMT ---
JOHANNA TORRE reviewed pt chart, 6 clicks = 24, Pt has been on RA since admission. JOHANNA TORRE into pt room, pt denies DC needs at this time. Pt reports son is picking him up after lunch today.
--- NOTE | 2024-11-28 11:38 | CASEMGMT ---
SW did not complete a PHQ9 as patient did not have a Stroke per physician. Lanny SAMUEL
--- NOTE | 2024-11-28 11:48 | CASEMGMT ---
LANGE Met with patient to complete LANGE form. LANGE form and its content were verbally explained and patient's questions were answered to the best of my ability.? Patient voiced understanding and signed LANGE form.? Patient provided a copy of signed LANGE form and original placed in patient's chart.? Patient had no further questions. Aliya Mcghee, Discharge Planning Asst
[2024-11-28 11:50] VITALS: BMI 28.0
== END 2024-11-28 11:00 | disposition home or self-care (01) ==
LOC: ED 21:58 → PCU 22:06
PROVIDERS: Admitting Provider Family Medicine; Emergency Provider Emergency Medicine; PCP Nurse Practitioner Family; Visit Provider Internal Medicine
DX: G45.9 Transient cerebral ischemic attack, unspecified (principal); I12.9 Hypertensive chronic kidney disease with stage 1 through stage 4 chronic kidney disease, or unspecified chronic kidney disease; E78.00 Pure hypercholesterolemia, unspecified; N18.9 Chronic kidney disease, unspecified; I25.10 Atherosclerotic heart disease of native coronary artery without angina pectoris; R29.898 Other symptoms and signs involving the musculoskeletal system; Z79.02 Long term (current) use of antithrombotics/antiplatelets; D64.9 Anemia, unspecified; N40.1 Benign prostatic hyperplasia with lower urinary tract symptoms; Z79.899 Other long term (current) drug therapy; Z79.82 Long term (current) use of aspirin; Z95.1 Presence of aortocoronary bypass graft; N13.8 Other obstructive and reflux uropathy; Z95.2 Presence of prosthetic heart valve
CPT/HCPCS: 36415; 70450; 70496; 70498; 70551; 71045; 80048; 80053; 80061; 82962; 83036; 83735; 84443; 84484; 85025; 85610; 85730; 93005; 93306; 94762; 96360; 96361; 96372; 97802; 99221; 99285; Q9967; A4216; G0378

== ENCOUNTER 2025-05-29 06:11 | Inpatient (IN) | payer MEDICARE, OTHER, SELFPAY ==
[2025-05-29] VITALS (15 sets, daily range): BP systolic 136–175; BP diastolic 69–100; PULSE 55–79; RESP 14–20; TEMP 36.3–36.7; O2SAT 94–99; BMI 29.6
--- NOTE | 2025-05-29 06:20 | CT_ITS ---
PROCEDURE: STROKE BRAIN/HEAD WITHOUT CONT 05/29/2025 REASON FOR EXAM: NEURO DEFICIT, ACUTE, STROKE SUSPECTED TECHNIQUE: Procedure Code: CTBR.ST Modality: CT Procedure: STROKE BRAIN/HEAD WITHOUT CONT Coronal and Sagittal reconstruction series were provided. One or more dose reduction techniques were used (e.g., Automated exposure control, adjustment of the mA and/or kV according to patient size, use of iterative reconstruction technique. RADIATION DOSE SUMMARY: CTDlvol: 44.99 mGy DLP: 863 mGycm COMPARISON: MRI on 11/28/2024. FINDINGS: Mild diffuse cortical atrophy, commensurate with the patient's age. Scattered hypodense foci in the periventricular and subcortical white matter suggestive of chronic ischemic white matter disease. Normal size of the ventricles and extra-axial spaces for the patient's age. Normal basal ganglia and thalami. Normal brainstem. Normal cerebellum. There is no demonstrated extra-axial, intraparenchymal, or intraventricular hemorrhage. There are no findings of an acute ischemic infarction. Normal calvarium. There is no demonstrated fracture. Normal soft tissue structures. Mild chronic mucosal inflammatory changes of the visualized paranasal sinuses. CT/STROKE Brain/Head without Cont IMPRESSION: No CT evidence for acute brain abnormality. I discussed the findings with Dr. Austin Paige in the emergency department at 6: 35 a.m. EST. Reading Location: [place] [id number]
--- NOTE | 2025-05-29 06:20 | EKG12_ITS ---
Test Reason : stroke team Blood Pressure : */* mmHG Vent. Rate : 50 BPM Atrial Rate : 50 BPM P-R Int : 216 ms QRS Dur : 124 ms QT Int : 470 ms P-R-T Axes : 36 5 92 degrees QTcB Int : 428 ms Sinus bradycardia with 1st degree A-V block Lateral infarct , age undetermined Abnormal ECG Confirmed by Jagdish Morris ([id number]), editorial clerk JESSICA MONROY ([id number]) on 05/31/2025 11:30:43 AM Referred By: Confirmed By: Jagdish Morris
--- NOTE | 2025-05-29 06:21 | CT_ITS ---
PROCEDURE: STROKE CTA HEAD AND NECK W/CON 05/29/2025 REASON FOR EXAM: NEURO DEFICIT, ACUTE, STROKE SUSPECTED TECHNIQUE: Procedure Code: CTCTA.ST.HN Modality: CT Procedure: STROKE CTA HEAD AND NECK W/CON Multiplanar Sagittal and Coronal images were obtained. CONTRAST: Isovue 370 VOLUME: 100 mL One or more dose reduction techniques were used (e.g., Automated exposure control, adjustment of the mA and/or kV according to patient size, use of iterative reconstruction technique). RADIATION DOSE SUMMARY: CTDlvol: 18.86 mGy DLP: 757 mGycm COMPARISON: CT scan on 05/29/2025. FINDINGS: Normal bilateral petrous carotid arteries. Calcified atheromatous plaques with mild multifocal stenosis of the right cavernous carotid artery with a normal supraclinoid bifurcation. Calcified atheromatous plaques with mild multifocal stenosis of the left cavernous carotid artery with a normal supraclinoid bifurcation. Normal right A1 segments of the anterior cerebral artery. Normal left A1 segments of the anterior cerebral artery. Normal intact anterior communicating artery (ACOM). Normal bilateral A2 segments of the anterior cerebral arteries. Normal right M1 and M2 segments of the middle cerebral arteries, with a normal M1 bifurcation. Normal left M1 and M2 segments of the middle cerebral arteries, with a normal M1 bifurcation. Normal right posterior communicating artery (PCOM). Normal left posterior communicating artery (PCOM). Normal bilateral vertebral arteries. Normal basilar artery with a normal basilar bifurcation. The visualized bilateral superior cerebellar (SCA) arteries are normal. Normal bilateral P1, P2 and visualized P3 segments of the posterior cerebral arteries. There is no demonstrated aneurysm of the [place]. There is no major vessel occlusion or hemodynamically significant stenosis. There is no demonstrated abnormality of the visualized brain. RIGHT CAROTID ARTERIES: Normal right common carotid artery (CCA). 40% stenosis of the right common carotid bulb. 40% stenosis of the origin of the right internal carotid (ICA) artery without a hemodynamically significant stenosis. Normal remaining visualized cervical portion of the right internal carotid artery. Normal origin of the right external carotid artery (ECA). LEFT CAROTID ARTERIES: Normal left common carotid artery (CCA). 30% stenosis of the left common carotid bulb. 30% stenosis of the origin of the left internal carotid (ICA) artery without a hemodynamically significant stenosis. Normal remaining visualized cervical portion of the left internal carotid artery. Normal origin of the left external carotid artery (ECA). VERTEBRAL ARTERIES: Normal bilateral vertebral artery without a hemodynamically significant stenosis. CT/STROKE CTA Head AND Neck W/Con IMPRESSION: Atherosclerosis without high-grade stenosis. I discussed the findings with Dr. Kilo Paige at 7:00 am EST. Reading Location: [place] [id number]
[2025-05-29 06:28] LABS: Hematocrit 35.8 % (40-54); Hemoglobin 12.4 g/dL (13.0-16.5); Immature Granulocytes Count 0.010 X10^3/uL (0.0-0.0); Mean Corp Hgb Conc 34.6 g/dL (32-36); Mean Corpuscular Volume 100.6 fL (80-94); Mean Platelet Vol. 9.9 fl (6.2-12.0); NRBC Flagged by Analyzer 0 % (0-5); Platelet Count 140 K/mm3 (150-450); RBC Distribution Width CV 13.2 % (11.6-14.6); RBC Distribution Width SD 49.7 fl (35.1-43.9); Red Blood Count 3.56 M/mm3 (4.6-6.2); White Blood Count 4.9 K/mm3 (4.4-11.0)
--- OUTSIDE RECORDS SUMMARY | 2025-05-29 06:33 | XMS RPT_ITS | CCD ---
Author Organization [facility] Inform ion Partnership [facility] Care Team Providers Care Logistician Name Role Phone ROGER KILN PACKER - GLAZIER ARTIST, CHI Wright Primary Care Phys ician ROGER KILN PACKER - GLAZIER ARTIST, CHI Wright Primary Care U navailable SIMMONS KILN PACKER-GLAZIER ARTIST, SIMI Attending Unavail samia VEGA MD, SHRAVAN Consulting Opal MUNOZ MD, ABISAI Tran Attending Unavailable ROGER KILN PACKER - GLAZIER ARTIST, CHI Wright Primary Care U navailable SIMMONS KILN PACKER-GLAZIER ARTIST, SIMI Attending Unavail able ROGER KILN PACKER - GLAZIER ARTIST, CHI Wright Primary Care U navailable ROGER KILN PACKER - GLAZIER ARTIST, CHI Wright Primary Care U navailable SIMMONS KILN PACKER-GLAZIER ARTIST, SIMI Attending Unavail able KESHA CUELLAR, RUBIO Admitting Unavailable KESHA CUELLAR, RUBIO Attending Unavailable ROGER KILN PACKER - GLAZIER ARTIST, CHI Wright Primary Care U shad BETH MD, DR GUARDADO Admitting Unavailab gregory BETH MD, DR GUARDADO Attending Unavailab le ROGER KILN PACKER - GLAZIER ARTIST, CHI Wright Primary Care U navailable ROGER KILN PACKER - GLAZIER ARTIST, CHI Wright Primary Care U navailable ROGER KILN PACKER - GLAZIER ARTIST, CHI Wright Attending U navailable ROGER KILN PACKER - GLAZIER ARTIST, CHI Wright Primary Care U navailable SIMMONS KILN PACKER-GLAZIER ARTIST, SIMI Attending Unavail able ROGER KILN PACKER - GLAZIER ARTIST, CHI Wright Primary Care U navailable SIMMONS KILN PACKER-GLAZIER ARTIST, SIMI Attending Unavail able ROGER KILN PACKER - GLAZIER ARTIST, CHI Wright Primary Care U navailable SIMMONS KILN PACKER-GLAZIER ARTIST, SIMI Attending Unavail able ROGER KILN PACKER - GLAZIER ARTIST, CHI Wright Primary Care U navailable SIMMONS KILN PACKER-GLAZIER ARTIST, SIMI Attending Unavail able ROGER KILN PACKER - GLAZIER ARTIST, CHI Wright Primary Care U RUBIO Doe MD Attending Unavailable ROGER KILN PACKER - GLAZIER ARTIST, CHI Wright Primary Care U navailable ROGER KILN PACKER - GLAZIER ARTIST, CHI Wright Attending U shad NEAL MD, DR GREGORIO CARPENTER Attending Unavai lable ROGER KILN PACKER - GLAZIER ARTIST, CHI Wright Primary Care U navailable ROGER KILN PACKER - GLAZIER ARTIST, CHI Wright Primary Care U navailable ROGER KILN PACKER - GLAZIER ARTIST, CHI Wright Attending U navailable Roger ELEVATING GRADER OPERATOR-C, Chi Bro Primary Care Provi cl Dr. Arnol Estrada DO Emergency Provider [phone] Alejandra CUELLAR, Dr. Josefa Campos Admit Provider Alejandra CUELLAR, Dr. Josefa Campos Attending Provider Alejandra CUELLAR, Dr. Josefa Campos Other Provider Nan CUELLAR, Dick Other Provider Unavailable Angelita CUELLAR, Dr. Lizarraga Other Provider Paula CUELLAR, Idalia Other Provider Unavailable Dr. Veronique Nice DO Other Provider Nicole CUELLAR, Dr. Valle Other Provider Danna CUELLAR, Dr. Liz Other Provider Gladys CUELLAR, Dr. Ferrer Other Provider [phone] Etienne CUELLAR, Dr. Villagomez Other Provider Miguel CUELLAR, Dr. Avila Other Provider [phone] Gene CUELLAR, Dr. Baker Other Provider Anabel Schmitt MD Other Provider Scottie CUELLAR, Dr. Mclean Other Provider Dre CUELLAR, Dr. Brunner Other Provider Zain CUELLAR, Dr. Vasques Other Provider [phone] Amanuel CUELLAR, Dr. Ottoniel Snyder Other Provider Mitch CUELLAR, Dr. Abraham Other Provider Tim CUELLAR, Dr. Mcdowell Other Provider Delia CUELLAR, Dr. Saldivar Other Provider [phone] Earnest CUELLAR, Dr. Kent Other Provider Unavailable Maria G CUELLAR, Trevor Other Provider Unavailable Kerry COLON, Dr. Mackay Attending Provider Kerry DO, Dr. Mackay Other Provider Juan Francisco CUELLAR, Dr. Weller Attending Provider Kerry COLON, Dr. Mackay Referring Provider Roger ELEVATING GRADER OPERATOR-C, Chi Bro Referring Provider Michelle ELEVATING GRADER OPERATOR-C, Madhuri Attending Provider Josefa Roberts L Admitting Unavailable Josefa Roberts L Attending Unavailable Roger ELEVATING GRADER OPERATOR, Chi Bro Primary Care Unav ailable Josefa Roberts Consulting Unavailable Thompson Payne Attending Unavailable Tornillo, Dick Consulting Unavailable Adeli, Amir Consulting Unavailable Hinduja, Idalia Consulting Unavailable Tex, Veronique Consulting Unavailable Zha, Tori Consulting Unavailable Danna, Agusto Consulting Unavailable Gladys, Carissa Consulting Unavailable Bittar, Hernando Consulting Unavailable Ivan Rivera Consulting Unavailable Samuel Mills Consulting Unavailable Bedanika Anabel Consulting Unavailable Vinay Rubin Consulting Unavailable Myesha Erickson Consulting Unavailable Layo Pittman Consulting Unavailable Zadarrel, Mhd Claduio Consulting UnavailJarad Conde Consulting Unavailable Tim, July Consulting Unavailable Yariel Lin Consulting Unavailable Yoli Tinoco Consulting Unavailable Trevor Cummins Consulting Unavailable Thompson Payne Consulting Unavailable Roger ELEVATING GRADER OPERATOR, Chi Bro Primary Care Unav ailable Thompson Payne Referring Unavailable Thompson Payne Attending Unavailable Roger ELEVATING GRADER OPERATOR, Chi Bro Primary Care Unav ailable Josefa Roberts L Admitting Unavailable Dick Montana Consulting Unavailable Thompson Payne Attending Unavailable Adeli, Amir Consulting Unavailable Hinduja, Idalia Consulting Unavailable Tex, Veronique Consulting Unavailable Zha, Tori Consulting Unavailable Danna, Agusto Consulting Unavailable Gladys, Carissa Consulting Unavailable Bittar, Hernando Consulting Unavailable Ivan Rivera Consulting Unavailable Gene Asmuel Consulting Unavailable Beigel, Anabel Consulting Unavailable Vinay Rubin Consulting Unavailable Myesha Erickson Consulting Unavailable Layo Pittman Consulting Unavailable Ottoniel iVtal Consulting UnavailJarad Conde Consulting Unavailable July Dumont Consulting Unavailable Yariel Lin Consulting Unavailable Yoli Tinoco Consulting Unavailable Trevor Cummins Consulting Unavailable Josefa Roberts Consulting Unavailable Alfalfa ELEVATING GRADER OPERATOR, Chi Bro Primary Care Unav ailable Alfalfa ELEVATING GRADER OPERATOR, Chi Bro Referring Unav ailable Madhuri Martinez Attending Unavailable Roger ELEVATING GRADER OPERATOR, Chi Bro Primary Care Unav ailable Janee hCicas Attending Unavailable Roger ELEVATING GRADER OPERATOR, Chi Bro Primary Care Unav ailable Thompson Payne Referring Unavailable Janee Chicas Attending Unavailable ZULEYMA CUELLAR, DERICK Edmondson Attending Unavailab le ROGER KILN PACKER - GLAZIER ARTIST, CHI Wright Primary Care U navailable ROGER KILN PACKER - GLAZIER ARTIST, CHI Wright Primary Care U navailable ROGER KILN PACKER - GLAZIER ARTIST, CHI Wright Attending U navailable ROGER KILN PACKER - GLAZIER ARTIST, CHI Wright Primary Care U navailable ROGER KILN PACKER - GLAZIER ARTIST, CHI Wrgiht Attending U shad WYLIE MD, TANYA Consulting Unavailable IVAN CHAMPION MD Attending Unavailable ROGER KILN PACKER - GLAZIER ARTIST, CHI Wright Primary Care U shad NEAL MD, DR GREGORIO CARPENTER Attending Shayna nieto ROGER KILN PACKER - GLAZIER ARTIST, CHI Wright Primary Care U navailable ROGER KILN PACKER - GLAZIER ARTIST, CHI Wright Attending U navailable ROGER KILN PACKER - GLAZIER ARTIST, CHI Wright Primary Care U shad WYLIE MD, TANYA Attending Unavailable ROGER KILN PACKER - GLAZIER ARTIST, CHI Wright Primary Care U navailable ROGER KILN PACKER - GLAZIER ARTIST, CHI Wright Primary Care U shad NEAL MD, DR GREGORIO CARPENTER Attending Shayna nieto ROGER KILN PACKER - GLAZIER ARTIST, CHI Wright Primary Care U navailable ROGERMIKA Shaikh CNP, CHI Wright Attending U navailable ROGER KILN PACKER - GLAZIER ARTIST, CHI Wright Primary Care U shad NEAL MD, DR GREGORIO CARPENTER Attending Shayna nieto Medications Current Medications Medication Drug Class(es) Dates Sig (Normalized) Sig (Original) acetaminophen 1000 mg oral tablet (10 sources) Start: 07-07-2020 take 1 tablet by mouth once daily Tylenol Dose : 1,000 mg = 2 tab(s), Oral, TID, not to exceed 3000 mg/day, 0 Refill(s) Start Date: 07/07/20 Status: Ordered aspirin 81 mg oral tablet (20 sources) Platelet Aggregation Inhibitor, Nonsteroidal Anti-inflammatory Drug Start: 11-26-2024 take 1 capsule by mouth once daily Aspirin 81 mg capsule Active 81 mg PO DAILY November 26, 2024 12:00am [facility] Start: 05-19-2023 aspirin 81 mg oral delayed release tablet Dose : 81 mg = 1 tab(s), Oral, Daily, 0 Refill(s) Start Date: 05/19/23 Status: Ordered Medication Dispense Status: Completed Total Allowed Fills: 1 Fills Dispensed: 0 Start: 08-21-2021 take 1 tablet by justice [...] tab(s), 0 Refill(s), 01/03/23 13:30:00 EDT, Pharmacy: [facility]/pharmacy #[id number], 181, cm, 12/29/22 12:59:00 [...] 0 Refill(s) Start Date: 07/23/21 Status: Ordered cholecalciferol 0.025 mg oral capsule (3 sources) Vitamin D Start: 11-26-2024 take 1 capsule by mouth once daily Cholecalciferol (Vitamin D3) (Vitamin D3) 25 mcg (1,000 unit) capsule Active 1000 U PO daily November 26, 2024 12:00am supplement clopidogrel 75 mg oral tablet (12 sources) [id number] Platelet Inhibitor Start: 01-13-2025 clopidogrel 75 mg oral tablet Dose : 75 mg = 1 tab(s), Oral, qDay, # 90 tab(s), 0 Refill(s) Start Date: 01/13/25 Status: Ordered Medication Dispense Status: Completed Quantity: 90.0 Unit: tab(s) Total Allowed Fills: 1 Fills Dispensed: 0 Start: 11-28-2024 End: 12-28-2024 take 1 tablet by mouth once daily Clopidogrel 75 mg Tablet Discontinued 75 mg PO DAILY 21 0 November 28, 2024 12:00am December 28, 2024 11:01am Start: 12-28-2023 Plavix 75 mg o ral tablet Dose : 75 mg = 1 tab(s), Oral, qDay, # 90 tab(s), 3 Refill(s), Pharmacy: [facility]/pharmacy #[id number], 185, cm, 12/14/23 8:06:00 EDT, Height, kg, 12/14/23 8:06:00 EDT, Dosing Weight Start Date: 12/28/23 Status: Ordered Quantity: 90.0 Unit: tab(s) Repeat number: 4 Start: 09-28-2023 Plavix 75 mg o ral tablet Dose : 75 mg = 1 tab(s), Oral, qDay, # 90 tab(s), 0 Refill(s), Pharmacy: [facility]/pharmacy #[id number], 185, cm, 09/07/23 10:31:00 EDT, Height, kg, 09/07/23 10:31:00 EDT, Dosing Weight Start Date: 09/28/23 Status: Ordered Start: 07-01-2023 Plavix 75 mg o ral tablet Dose : 75 mg = 1 tab(s), Oral, qDay, # 90 tab(s), 0 Refill(s), [id number], 185.4, cm, 06/30/23 9:23:00 EST, Height, kg, 06/30/23 9:23:00 EST, Dosing Weight Start Date: 07/01/23 Status: Ordered ezetimibe 10 mg oral tablet (5 sources) Dietary Cholesterol Absorption Inhibitor Start: 11-28-2024 End: 07-10-2025 ezetimibe 10 mg oral tablet Dose : 10 mg = 1 tab(s), Oral, qDay, # 100 tab(s), 1 Refill(s), [id number], Hyperlipidemia LDL goal Start Date: 12/22/24 Stop Date: 07/10/25 Status: Ordered Medication Dispense Status: Completed Quantity: 100.0 Unit: tab(s) Total Allowed Fills: 2 Fills Dispensed: 0 Indications: Hyperlipidemia, unspecified; famotidine 20 mg oral tablet (3 sources) Histamine-2 Receptor Antagonist Start: 08-21-2021 Pepcid 20 mg oral ta blet Dose : 20 mg = 1 tab(s), Oral, qDay, # 30 tab(s), 0 Refill(s), [id number], 182, cm, 08/20/21 15:11:00 EST, Height, kg, 08/20/21 15:11:00 EST, Dosing Weight Start Date: 08/21/21 Status: Ordered finasteride 5 mg oral tablet (20 sources) 5-alpha Reductase Inhibitor Start: 11-26-2024 Proscar 5 mg oral ta blet Dose : 5 mg = 1 tab(s), Oral, qDay, PSA elevation, # 100 tab(s), 1 Refill(s), [id number], PSA elevation, 180, cm, 12/22/24 7:01:00 EDT, Height, kg, 12/22/24 7:01:00 EDT, Dosing Weight Start Date: 12/22/24 Status: Ordered Medication Dispense Status: Completed Quantity: 100.0 Unit: tab(s) Total Allowed Fills: 2 Fills Dispensed: 0 Indications: Elevated prostate specific antigen [PSA]; Start: 06-27-2024 Proscar 5 mg o ral tablet Dose : 5 mg = 1 tab(s), Oral, qDay, PSA elevation, # 100 tab(s), 1 Refill(s), [id number], PSA elevation, 180, cm, 06/27/24 8:03:00 EST, Height, kg, 06/27/24 8:03:00 EST, Dosing Weight Start Date: 06/27/24 Status: Ordered Quantity: 100.0 Unit: tab(s) Repeat number: 2 Indications: Elevated prostate specific antigen [PSA]; Start: 12-14-2023 Proscar 5 mg o ral tablet Dose : 5 mg = 1 tab(s), Oral, qDay, PSA elevation, # 100 tab(s), 1 Refill(s), [id number], PSA elevation, 185, cm, 12/14/23 8:06:00 EDT, Height, kg, 12/14/23 8:06:00 EDT, Dosing Weight Start Date: 12/14/23 Status: Ordered Quantity: 100.0 Unit: tab(s) Repeat number: 2 Indication: Elevated prostate specific antigen [PSA] Start: 05-25-2023 End: 11-21-2023 Proscar 5 mg oral tablet Dos e : 5 mg = 1 tab(s), Oral, qDay, PSA elevation, # 100 tab(s), 1 Refill(s), [id number], PSA elevation, 185, cm, 09/07/23 10:31:00 EDT, Height, kg, 09/07/23 10:31:00 EDT, Dosing Weight Start Date: 09/22/23 Status: Ordered Start: 05-29-2022 End: 05-23-2023 Proscar 5 mg oral tablet Dos e : 5 mg = 1 tab(s), Oral, qDay, PSA elevation, # 90 tab(s), 1 Refill(s), [id number], PSA elevation, 185, cm, 11/24/22 8:28:00 [...] mL, 1 Refill(s), 07/02/21 14:36:00 EST, [id number], 185.4, cm, 06/06/21 8:59:00 EST, Height, kg, 06/06/21 8:59:00 EST, Dosing Weight Start Date: 06/18/21 Stop Date: 07/02/21 Status: Ordered meloxicam 15 mg oral tablet (7 sources) Nonsteroidal Anti-inflammatory Drug Start: 10-20-2023 meloxicam 15 mg oral tablet Dose : 15 mg = 1 tab(s), Oral, qDay, # 90 tab(s), 1 Refill(s), Pharmacy: [facility]/pharmacy #[id number], 185, cm, 09/07/23 10:31:00 EDT, Height, kg, 09/07/23 10:31:00 EDT, Dosing Weight Start Date: 10/20/23 Status: Ordered Start: 11-24-2022 meloxicam 15 m g oral tablet Dose : 15 mg = 1 tab(s), Oral, qDay, TAKE 1 TABLET BY MOUTH EVERY DAY, # 90 tab(s), 1 Refill(s), Pharmacy: [facility]/pharmacy #[id number], 185, cm, 11/24/22 8:28:00 EDT, Height, kg, 11/24/22 8:28:00 EDT, Dosing Weight Start Date: 11/24/22 Status: Ordered Start: 06-30-2022 meloxicam 15 m g oral tablet Dose : 15 mg = 1 tab(s), Oral, qDay, TAKE 1 TABLET BY MOUTH EVERY DAY, # 90 tab(s), 1 Refill(s), Pharmacy: [facility]/pharmacy #[id number], 185, cm, 05/29/22 8:21:00 EST, Height, kg, 05/29/22 8:21:00 EST, Dosing Weight Start Date: 06/30/22 Status: Ordered Start: 01-06-2022 meloxicam 15 m g oral tablet Dose : 15 mg = 1 tab(s), Oral, qDay, TAKE 1 TABLET BY MOUTH EVERY DAY, # 90 tab(s), 1 Refill(s), [id number], 181.5, cm, 12/13/21 8:44:00 EDT, Height Start Date: 01/06/22 Status: Ordered Start: 06-06-2021 meloxicam 15 m g oral tablet Dose : 15 mg = 1 tab(s), Oral, qDay, # 30 tab(s), 0 Refill(s) Start Date: 06/06/21 Status: Ordered 24 hr metoprolol succinate 25 mg extended release oral tablet (20 sources) beta-Adrenergic Zaid Start: 11-26-2024 take 2 tablets by mouth once daily Metoprolol Succinate 25 mg tablet extended release 24 hr Active 12.5 mg PO DAILY November 26, 2024 12:00am blood pressure Start: 06-27-2024 End: 07-10-2025 metoprolol succinate 25 mg o ral TABLET extended release Dose : 12.5 mg = 0.5 tab(s), Oral, qDay, Do not crush or chew (controlled release), # 50 tab(s), 1 Refill(s), [id number], CAD (coronary artery disease), 180, cm, 12/22/24 7:01:00 EDT, Height, kg, 12/22/24 7:01:00 EDT, Dosing Weight Start Date: 12/22/24 Stop Date: 07/10/25 Status: Ordered Medication Dispense Status: Completed Quantity: 50.0 Unit: tab(s) Total Allowed Fills: 2 Fills Dispensed: 0 Indications: Atherosclerotic heart disease of [place] coronary artery without angina pectoris; Start: 12-14-2023 End: 06-11-2024 metoprolol succinate 25 mg o ral TABLET extended release Dose : 25 mg = 1 tab(s), Oral, qDay, Do not crush or chew (controlled release), # 90 tab(s), 1 Refill(s), Pharmacy: [facility]/pharmacy #[id number], CAD (coronary artery disease), 185, cm, 12/14/23 8:06:00 EDT, Height, kg, 12/14/23 8:06:00 EDT, Dosing Weight Start Date: 12/14/23 Stop Date: 06/11/24 Status: Ordered Quantity: 90.0 Unit: tab(s) Repeat number: 2 Indication: Atherosclerotic heart disease of [place] coronary artery without angina pectoris Start: 07-01-2023 [...] # 90 tab(s), 1 Refill(s), Pharmacy: [facility]/pharmacy #[id number], CAD (coronary artery disease), 179.5, cm, 05/25/23 11:00:00 EST, Height, kg, 05/25/23 11:00:00 EST, Dosing Weight Start Date: 05/25/23 Stop Date: 11/21/23 Status: Ordered Start: 12-13-2021 End: 05-23-2023 metoprolol succinate 25 mg o ral TABLET extended release Dose : 25 mg = 1 tab(s), Oral, qDay, Do not crush or chew (controlled release), # 90 tab(s), 1 Refill(s), Pharmacy: [facility]/pharmacy #[id number], CAD (coronary artery disease), 185, cm, 11/24/22 8:28:00 EDT, Height, kg, 11/24/22 8:28:00 EDT, Dosing Weight Start Date: 11/24/22 Stop Date: 05/23/23 Status: Ordered Start: 05-31-2021 End: 02-25-2022 metoprolol succinate 25 mg o ral TABLET extended release Dose : 25 mg = 1 tab(s), Oral, qDay, Do not crush or chew (controlled release), # 90 tab(s), 2 Refill(s), Pharmacy: [facility]/pharmacy #[id number], CAD (coronary artery disease), 184.5, cm, [...] 0 Refill(s), 10/22/24 4:22:00 PM EDT, [id number], 180, cm, 10/17/24 9:05:00 EDT, Height, [...] tab(s), 0 Refill(s), 09/03/21 9:56:00 EDT, Pharmacy: [facility]/pharmacy #[id number], Pain of right hip [...] qDay, # 100 cap(s), 1 Refill(s), [id number], HTN, goal below 140/90, 180, cm, 06/27/24 8:03:00 EST, Height, kg, 06/27/24 8:03:00 EST, Dosing Weight Start Date: 06/27/24 Stop Date: 12/24/24 Status: Ordered Quantity: 100.0 Unit: cap(s) Repeat number: 2 Indications: Essential (primary) hypertension; Start: 12-14-2023 End: 06-11-2024 ramipril 10 mg oral capsule Dose : 10 mg = 1 cap(s), Oral, qDay, # 90 cap(s), 1 Refill(s), Pharmacy: [facility]/pharmacy #[id number], HTN, goal below 140/90, 185, cm, 12/14/23 8:06:00 EDT, Height, kg, 12/14/23 8:06:00 EDT, Dosing Weight Start Date: 12/14/23 Stop Date: 06/11/24 Status: Ordered Quantity: 90.0 Unit: cap(s) Repeat number: 2 Indication: Essential (primary) hypertension Start: 05-25-2023 End: 11-21-2023 ramipril 10 mg oral capsule Dose : 10 mg = 1 cap(s), Oral, qDay, # 90 cap(s), 1 Refill(s), Pharmacy: [facility]/pharmacy #[id number], HTN, goal below 140/90, 179.5, cm, 05/25/23 11:00:00 EST, Height, kg, 05/25/23 11:00:00 EST, Dosing Weight Start Date: 05/25/23 Stop Date: 11/21/23 Status: Ordered Start: 05-31-2021 End: 05-23-2023 ramipril 10 mg oral capsule Dose : 10 mg = 1 cap(s), Oral, qDay, # 90 cap(s), 1 Refill(s), Pharmacy: [facility]/pharmacy #[id number], HTN, goal below 140/90, 185, cm, 11/24/22 8:28:00 EDT, Height, kg, 11/24/22 8:28:00 EDT, Dosing Weight Start Date: 11/24/22 Stop Date: 05/23/23 Status: Ordered rosuvastatin calcium 40 mg oral tablet (20 sources) HMG-CoA Reductase Inhibitor Start: 11-26-2024 rosuvastatin 40 mg oral tablet Dose : 40 mg = 1 tab(s), Oral, qDay, # 100 tab(s), 1 Refill(s), [id number], 180, cm, 12/22/24 7:01:00 EDT, Height, kg, 12/22/24 7:01:00 EDT, Dosing Weight Start Date: 12/22/24 Status: Ordered Medication Dispense Status: Completed Quantity: 100.0 Unit: tab(s) Total Allowed Fills: 2 Fills Dispensed: 0 Start: 06-27-2024 rosuvastatin 4 0 mg oral tablet Dose : 40 mg = 1 tab(s), Oral, qDay, # 100 tab(s), 1 Refill(s), [id number], 180, cm, 06/27/24 8:03:00 EST, Height, kg, 06/27/24 8:03:00 EST, Dosing Weight Start Date: 06/27/24 Status: Ordered Quantity: 100.0 Unit: tab(s) Repeat number: 2 Start: 12-14-2023 rosuvastatin 4 0 mg oral tablet Dose : 40 mg = 1 tab(s), Oral, qDay, # 100 tab(s), 1 Refill(s), Pharmacy: [facility]/pharmacy #[id number], 185, cm, 12/14/23 8:06:00 EDT, Height, kg, 12/14/23 8:06:00 EDT, Dosing Weight Start Date: 12/14/23 Status: Ordered Quantity: 100.0 Unit: tab(s) Repeat number: 2 Start: 09-22-2023 rosuvastatin 4 0 mg oral tablet Dose : 40 mg = 1 tab(s), Oral, qDay, # 100 tab(s), 1 Refill(s), [id number], 185, cm, 09/07/23 10:31:00 EDT, Height, [...] 1 Refill(s), 05/23/23 9:12:00 AM EST, [id number], Hyperlipidemia LDL goal Start Date: 11/24/22 Stop Date: 05/23/23 Status: Ordered sennosides, INTERMEDIATE (1 source) Start: 08-21-2021 End: 08-24-2021 take 1 tablet by mouth twice daily Senokot S 50 mg-8.6 mg oral tablet Dose = 2 tab(s), Oral, BID, Take until first bowel movement, then as needed, # 20 tab(s), 0 Refill(s), [id number], 182, cm, 08/20/21 15:11:00 EST, Height, [...] day(s), # 20 tab(s), 0 Refill(s), [id number], 180, cm, 10/17/24 9:05:00 EDT, Height, 101, kg, 10/17/24 9:05:00 EDT, Dosing Weight Start Date: 10/17/24 Stop Date: 10/27/24 Status: Ordered Quantity: 20.0 Unit: tab(s) Repeat number: 1 tamsulosin hydrochloride 0.4 mg oral capsule (20 sources) alpha-Adrenergic Zaid Start: 11-26-2024 tamsulosin 0.4 mg oral capsule Dose : 0.4 mg = 1 cap(s), Oral, qDay, # 100 cap(s), 1 Refill(s), [id number], 180, cm, 12/22/24 7:01:00 EDT, Height, kg, 12/22/24 7:01:00 EDT, Dosing Weight Start Date: 12/22/24 Status: Ordered Medication Dispense Status: Completed Quantity: 100.0 Unit: cap(s) Total Allowed Fills: 2 Fills Dispensed: 0 Start: 06-27-2024 tamsulosin 0.4 mg oral capsule Dose : 0.4 mg = 1 cap(s), Oral, qDay, # 100 cap(s), 1 Refill(s), [id number], 180, cm, 06/27/24 8:03:00 EST, Height, kg, 06/27/24 8:03:00 EST, Dosing Weight Start Date: 06/27/24 Status: Ordered Quantity: 100.0 Unit: cap(s) Repeat number: 2 Start: 12-14-2023 tamsulosin 0.4 mg oral capsule Dose : 0.4 mg = 1 cap(s), Oral, qDay, # 100 cap(s), 1 Refill(s), Pharmacy: [facility]/pharmacy #[id number], 185, cm, 12/14/23 8:06:00 EDT, Height, kg, 12/14/23 8:06:00 EDT, Dosing Weight Start Date: 12/14/23 Status: Ordered Quantity: 100.0 Unit: cap(s) Repeat number: 2 Start: 05-25-2023 End: 11-21-2023 tamsulosin 0.4 mg oral capsu le Dose : 0.4 mg = 1 cap(s), Oral, qDay, # 100 cap(s), 1 Refill(s), [id number], 185, cm, 09/07/23 10:31:00 EDT, Height, kg, 09/07/23 10:31:00 EDT, Dosing Weight Start Date: 09/22/23 Status: Ordered Start: 05-29-2022 End: 05-23-2023 tamsulosin 0.4 mg oral capsu le Dose : 0.4 mg = 1 cap(s), Oral, qDay, # 90 cap(s), 1 Refill(s), [id number], 185, [place], 11/24/22 8:28:00 EDT, Height, kg, 11/24/22 8:28:00 EDT, Dosing Weight Start Date: 11/24/22 Stop Date: 05/23/23 Status: Ordered Start: 07-23-2021 tamsulosin 0.4 mg oral capsule Dose : 0.4 mg = 1 cap(s), Oral, qDay, # 30 cap(s), 0 Refill(s) Start Date: 07/23/21 Status: Ordered Vitamin D3 25 mcg (1000 intl units) oral tablet (9 sources) Start: 06-27-2024 Vitamin D3 25 mcg (1000 intl units) oral tablet Dose : 25 mcg = 1 tab(s), Oral, qDay, # 30 tab(s), 0 Refill(s) Start Date: 06/27/24 Status: Ordered Medication Dispense Status: Completed Quantity: 30.0 Unit: tab(s) Total Allowed Fills: 1 Fills Dispensed: 0 Start: 06-27-2024 Vitamin D3 25 mcg (1000 [...] # 4 cap(s), 3 Refill(s), Pharmacy: [facility]/pharmacy #[id number], Prophylactic antibiotics NEEDED prior to dental procedures., 178, cm, 07/10/23 14:07:00 EST, Height, kg, 07/10/23 14:07:00 EST, Dosing Weight Start Date: 07/10/23 Stop Date: 07/10/23 Status: Ordered cephalexin 500 mg oral capsule (4 sources) Cephalosporin Antibacterial Start: 03-05-2014 End: 11-26-2024 take 1 capsule by mouth every six hours Cephalexin 500 MG capsule Discontinued 500 mg PO EVERY 6 HOURS 40 0 March 05, 2014 12:00am November 26, 2024 8:58pm Problems Active Problems Problem Classification Problem Date Documented Da te Episodic/Chronic Cancer of prostate (2 sources) Malignant neoplasm of prostate; Translations: [Malignant neoplasm of prostate] Onset: 5 Chronic Chronic kidney disease (20 sources) Chronic kidney disease stage 3; Translations: [Chronic kidney disease, stage 3 (moderate)] Onset: 2 11-10-2019 Chronic Chronic kidney disease (4 sources) Chronic kidney disease; Translations: [Chronic kidney disease, stage 3 unspecified] Onset: 4 Congestive heart failure; nonhypertensive (17 sources) Acute on chronic diastolic heart failure; Translations: [Acute on chronic diastolic (congestive) heart failure] Onset: 4 Chronic Coronary atherosclerosis and other heart disease (20 sources) Coronary arteriosclerosis; Translations: [Coronary arteriosclerosis in [place] artery] Onset: 2 05-31-2021 Chronic Comment on [...] Onset: 2 Chronic Intestinal obstruction without hernia (6 sources) Intestinal obstruction 10-17-2024 Episodic Nutritional deficiencies (14 sources) Vitamin D deficiency; Translations: [Vitamin D deficiency, unspecified] Onset: 4 12-14-2023 Chronic Osteoarthritis (20 sources) Arthritis; Translations: [Osteoarthritis] Onset: 2 11-10-2019 Chronic Other aftercare (20 sources) Post-discharge follow-up 05-25-2023 Episodic Other connective tissue disease (6 sources) Muscle weakness of upper limb; Translations: [Other symptoms and signs involving the musculoskeletal system] 11-26-2024 Episodic Other connective tissue disease (2 sources) Other symptoms and signs involving the musculoskeletal system; Translations: [Other symptoms and signs involving the musculoskeletal system] Onset: 5 Episodic Other gastrointestinal disorders (3 sources) Acute constipation 10-17-2024 Episodic Other lower respiratory disease (3 sources) Snoring 01-13-2025 Episodic Other non-traumatic joint disorders (20 sources) Hip pain 05-11-2020 Episodic Other nutritional; endocrine; and metabolic disorders (1 source) General symptom; Translations: [Other symptoms and signs concerning food and fluid intake] Onset: 4 Episodic Peripheral and visceral atherosclerosis (7 sources) Renal artery stenosis 07-12-2024 Chronic Residual codes; unclassified (20 sources) Increased body mass index 05-31-2021 Episodic Residual codes; unclassified (15 sources) Antibiotic prophylaxis indicated 07-10-2023 Episodic Comment on above: Prophylactic antibio tics required prior to dental procedures. Transient cerebral ischemia (3 sources) Transient cerebral ischemia 12-22-2024 Chronic Unclassified (20 sources) Patient encounter status 11-10-2019 Unclassified (20 sources) Non-smoker 12-13-2021 Unclassified (18 sources) Severe aortic valve stenosis 05-25-2023 Unclassified (2 sources) Appointment is with TOISN Martinez. Past or Other Problems Problem Classification Problem Date Documented Da te Episodic/Chronic Abdominal pain (8 sources) Abdominal discomfort; Translations: [Generalized abdominal pain] Onset: 01-10-2025 10-17-2024 Episodic Diabetes mellitus without complication (20 sources) Impaired fasting glycemia; Translations: [Impaired fasting glucose] Onset: 12-10-2023 11-10-2019 Episodic Other gastrointestinal disorders (2 sources) Constipation, unspecified; Translations: [Constipation, unspecified] Onset: 01-10-2025 Episodic Other screening for suspected conditions (not mental disorders or infectious disease) (20 sources) Raised prostate specific antigen; Translations: [Elevated prostate specific antigen [PSA]] Onset: 06-30-2023 05-31-2021 Episodic Results Test Name Value Interpretation Reference Range Facility .GFRon 04-04-2025 Estimated Glomerular Filtration Rate 43 ml/min/1.73sqm Normal [facility] Comment on above: Result Comment: Stages of [...] the eGFR results. Performed By: #### A 1C, CBC, CMP, ADIFF, GFR, ANEU, LIPID, VIDH, [id number] #### [address] [address] #### PTH #### [address] [address] [facility] 04-04-2025 Albumin Level 3.9 G/dL Normal 3.4-4.8 [facility] Comment on above: Performed By: #### A 1C, CBC, CMP, ADIFF, GFR, ANEU, LIPID, VIDH, [id number] #### [address] [address] #### PTH #### [address] [address] Albumin/Globulin [Mass ratio] 1.2 {ratio} Normal 1.1-2.5 [facility] Comment on above: Performed By: #### A 1C, CBC, CMP, ADIFF, GFR, ANEU, LIPID, VIDH, [id number] #### [address] [address] #### PTH #### [address] [address] ALP [Catalytic activity/Vol] 72 U/L Normal 40-135 [facility] Comment on above: Performed By: #### A 1C, CBC, CMP, ADIFF, GFR, ANEU, LIPID, VIDH, [id number] #### [address] [address] #### PTH #### [address] [address] ALT [Catalytic activity/Vol] 32 U/L Normal 16-63 [facility] Comment on above: Performed By: #### A 1C, CBC, CMP, ADIFF, GFR, ANEU, LIPID, VIDH, [id number] #### [address] [address] #### PTH #### [address] [address] AST [Catalytic activity/Vol] 25 U/L Normal 10-40 [facility] Comment on above: Performed By: #### A 1C, CBC, CMP, ADIFF, GFR, ANEU, LIPID, VIDH, [id number] #### [place] [address] #### PTH #### [address] [address] Bili Total 0.8 mg/dL Normal 0.2-1.0 [facility] Comment on above: Result Comment: Use of this assay is not recommended for patients undergoing treatment with eltrombopag due to the potential for falsely elevated results. Performed By: #### A 1C, CBC, CMP, ADIFF, GFR, ANEU, LIPID, VIDH, [id number] #### [place] [id number] #### PTH #### [address] [address] BUN/Creatinine Ratio 14 ratio Normal 7-27 [facility] Comment on above: Performed By: #### A 1C, CBC, CMP, ADIFF, GFR, ANEU, LIPID, VIDH, [id number] #### [address] [address] #### PTH #### [address] [address] Calcium [Mass/Vol] 9.2 mg/dL Normal 8.4-10.2 [facility] Comment on above: Performed By: #### A 1C, CBC, CMP, ADIFF, GFR, ANEU, LIPID, VIDH, [id number] #### [address] [address] #### PTH #### [address] [address] Chloride [Moles/Vol] 106 mmol/L Normal 98-107 [facility] Comment on above: Performed By: #### A 1C, CBC, CMP, ADIFF, GFR, ANEU, LIPID, VIDH, [id number] #### [address] [address] #### PTH #### [address] [address] CO2 [Moles/Vol] 31 mmol/L Normal 23-31 [facility] Comment on above: Performed By: #### A 1C, CBC, CMP, ADIFF, GFR, ANEU, LIPID, VIDH, [id number] #### [address] [address] #### PTH #### [address] [address] Creatinine [Mass/Vol] 1.62 mg/dL High 0.67-1.17 [facility] Comment on above: Performed By: #### A 1C, CBC, CMP, ADIFF, GFR, ANEU, LIPID, VIDH, [id number] #### [address] [address] #### PTH #### [address] [address] Electrolyte Balance 4.0 mEq/L Normal 4.0-15.0 [facility] Comment on above: Performed By: #### A 1C, CBC, CMP, ADIFF, GFR, ANEU, LIPID, VIDH, [id number] #### [address] [address] #### PTH #### [address] [address] Globulin 3.3 G/dL Normal 2.7-4.4 [facility] Comment on above: Performed By: #### A 1C, CBC, CMP, ADIFF, GFR, ANEU, LIPID, VIDH, [id number] #### [address] [address] #### PTH #### [address] [address] Glucose [Mass/Vol] 98 mg/dL Normal 83-110 [facility] Comment on above: Performed By: #### A 1C, CBC, CMP, ADIFF, GFR, ANEU, LIPID, VIDH, [id number] #### [address] [address] #### PTH #### [address] [address] Potassium [Moles/Vol] 4.4 mmol/L Normal 3.5-5.1 [facility] Comment on above: Performed By: #### A 1C, CBC, CMP, ADIFF, GFR, ANEU, LIPID, VIDH, [id number] #### [address] [address] #### PTH #### [address] [address] Sodium [Moles/Vol] 141 mmol/L Normal 136-145 [facility] Comment on above: Performed By: #### A 1C, CBC, CMP, ADIFF, GFR, ANEU, LIPID, VIDH, [id number] #### [address] [address] #### PTH #### [address] [address] Total Protein 7.2 G/dL Normal 6.4-8.2 [facility] Comment on above: Performed By: #### A 1C, CBC, CMP, ADIFF, GFR, ANEU, LIPID, VIDH, [id number] #### [address] [address] #### PTH #### [facility] [address] [place] [address] Urea nitrogen [Mass/Vol] 22 mg/dL High 7-18 [facility] Comment on above: Performed By: #### A 1C, CBC, CMP, ADIFF, GFR, ANEU, LIPID, VIDH, [id number] #### [address] [address] #### PTH #### [address] [address] LABORATORYOrdered By: SYSTEM SYSTEM on 04-04-2025 Albumin BCP dye [Mass/Vol] 3.9 G/dL Normal 3.4 - 4.8 G/dL AO ADM SS Albumin/Globulin [Mass ratio] 1.2 {ratio} Normal 1.1 - 2.5 ratio AO ADM SS ALP [Catalytic activity/Vol] 72 U/L Normal 40 - 135 U/L AO ADM SS ALT With P-5'-P [Catalytic activity/Vol] 32 U/L Normal 16 - 63 U/L AO ADM SS AST With P-5'-P [Catalytic activity/Vol] 25 U/L Normal 10 - 40 U/L AO ADM SS Bilirubin [Mass/Vol] 0.8 mg/dL Normal 0.2 - 1 .0 mg/dL [...] 7 mmol/L AO ADM SS CO2 [Moles/Vol] 31 mmol/L Normal 23 - 31 mmol/L AO ADM SS Creatinine [Mass/Vol] 1.62 mg/dL High 0.67 - 1.17 mg/dL AO ADM SS Electrolyte Balance 4.0 mEq/L Normal 4.0 - 15 .0 mEq/L AO ADM SS Globulin 3.3 G/dL Normal 2.7 - 4.4 G/dL AO ADM SS GLOMERULAR FILTRATION RATE/1.73 SQ M.PREDICTED:ARVRAT:PT:S ER/PLAS/BLD:QN:CREATINI NE-BASED FORMULA (CKD-EPI 2020) 43 ml/min/1.73sqm Invalid Interpretation Code AO Chemistry S [...] to calculate the eGFR results. Glucose [Mass/Vol] 98 mg/dL Normal 83 - 110 mg/dL AO ADM SS Magnesium [Mass/Vol] 2.1 mg/dL Normal 1.8 - 2 .4 mg/dL AO ADM SS Phosphate [Mass/Vol] 3.6 mg/dL Normal 2.3 - 4 .1 mg/dL AO ADM SS Potassium [Moles/Vol] 4.4 mmol/L Normal 3.5 - 5.1 mmol/L AO ADM SS Protein [Mass/Vol] 7.2 G/dL Normal 6.4 - 8.2 G/dL AO ADM SS Sodium [Moles/Vol] 141 mmol/L Normal 136 - 145 mmol/L AO ADM SS Urea nitrogen [Mass/Vol] 22 mg/dL High 7 - 18 mg/dL AO ADM SS Urea nitrogen/Creatinine [Mass ratio] 14 ratio Normal 7 - 27 ratio AO ADM SS Uric Acid Lvl 4.6 mg/dL Normal 3.5 - 7.2 mg/dL AO ADM SS MGon 04-04-2025 Magnesium [Mass/Vol] 2.1 mg/dL Normal 1.8-2.4 [facility] Comment on above: Performed By: #### A 1C, CBC, CMP, ADIFF, GFR, ANEU, LIPID, VIDH, [id number] #### [address] [address] #### PTH #### [place] [address] PHOSon 04-04-2025 Phosphate [Mass/Vol] 3.6 mg/dL Normal 2.3-4.1 [facility] Comment on above: Performed By: #### A 1C, CBC, CMP, ADIFF, GFR, ANEU, LIPID, VIDH, [id number] #### [address] [address] #### PTH #### [place] [address] URICon 04-04-2025 Uric Acid Lvl 4.6 mg/dL Normal 3.5-7.2 [facility] Comment on above: Performed By: #### A 1C, CBC, CMP, ADIFF, GFR, ANEU, LIPID, VIDH, [id number] #### [address] [address] #### PTH #### [place] [address] LABORATORYOrdered By: SYSTEM SYSTEM on 02-28-2025 Prostate specific Ag [Mass/Vol] 7.63 ng/mL High 0.00 - 4.00 ng/mL AO ADM SS PSAon 02-28-2025 Prostate Specific Antigen 7.63 ng/mL High 0.00-4.00 [facility] Comment on above: Performed By: #### A 1C, CBC, CMP, ADIFF, GFR, ANEU, LIPID, VIDH, [id number] #### [address] [address] #### PTH #### [place] [address] .Auto Diffon 01-10-2025 Basophil, Absolute 0.0 10 3/mcL Normal 0.0-0.3 [facility] Comment on above: Performed By: #### A 1C, CBC, CMP, ADIFF, GFR, ANEU, LIPID, VIDH, [id number] #### [address] [address] #### PTH #### [address] [address] Basophils/100 WBC (Bld) 0.5 % Normal 0.0-2.5 [facility] Comment on above: Performed By: #### A 1C, CBC, CMP, ADIFF, GFR, ANEU, LIPID, VIDH, [id number] #### [address] [address] #### PTH #### [address] [address] Eosinophil, Absolute 0.2 10 3/mcL Normal 0.0-0.7 [facility] Comment on above: Performed By: #### A 1C, CBC, CMP, ADIFF, GFR, ANEU, LIPID, VIDH, [id number] #### [address] [address] #### PTH #### [address] [address] Eosinophils/100 WBC (Bld) 4.8 % Normal 0.0-6.0 [facility] Comment on above: Performed By: #### A 1C, CBC, CMP, ADIFF, GFR, ANEU, LIPID, VIDH, [id number] #### [address] [address] #### PTH #### [address] [address] Lymphocyte, Absolute 0.9 10 3/mcL Normal 0.9-4.3 [facility] Comment on above: Performed By: #### A 1C, CBC, CMP, ADIFF, GFR, ANEU, LIPID, VIDH, [id number] #### [address] [address] #### PTH #### [address] [address] Lymphocytes/100 WBC (Bld) 23.3 % Normal 20.0-40.0 [facility] Comment on above: Performed By: #### A 1C, CBC, CMP, ADIFF, GFR, ANEU, LIPID, VIDH, [id number] #### [address] [address] #### PTH #### [facility] [address] [place] [address] Monocyte, Absolute 0.3 10 3/mcL Normal 0.1-1.4 [facility] Comment on above: Performed By: #### A 1C, CBC, CMP, ADIFF, GFR, ANEU, LIPID, VIDH, [id number] #### [address] [address] #### PTH #### [address] [address] Monocytes/100 WBC (Bld) 8.6 % Normal 2.0-13.0 [facility] Comment on above: Performed By: #### A 1C, CBC, CMP, ADIFF, GFR, ANEU, LIPID, VIDH, [id number] #### [address] [address] #### PTH #### [address] [address] Neutrophils/100 WBC (Bld) 62.8 % Normal 50.0-75.0 [facility] Comment on above: Performed By: #### A 1C, CBC, CMP, ADIFF, GFR, ANEU, LIPID, VIDH, [id number] #### [address] [address] #### PTH #### [address] [address] .GFRon 01-10-2025 Estimated Glomerular Filtration Rate 44 ml/min/1.73sqm Normal [facility] Comment on above: Result Comment: Stages of [...] the eGFR results. Performed By: #### A 1C, CBC, CMP, ADIFF, GFR, ANEU, LIPID, VIDH, [id number] #### [address] [address] #### PTH #### [address] [address] .NEUABSon 01-10-2025 Neutrophil, Absolute 2.3 10 3/mcL Normal 2.3-8.1 [facility] Comment on above: Performed By: #### A 1C, CBC, CMP, ADIFF, GFR, ANEU, LIPID, VIDH, [id number] #### [place] [address] #### PTH #### [address] [address] A1Con 01-10-2025 Glucose [Mass/Vol] 100 mg/dL Normal [facility] Comment on above: Result Comment: Nalini mated Average Glucose calculated by equation ((28.7xA1C)-46.7) Estimated average glucose (eAG) is a calculated value from Hemoglobin A1C and is welding equipment sales representative of the average blood glucose level in the last 2-3 month period. Normal range: less than 114 mg/dL Performed By: #### A 1C, CBC, CMP, ADIFF, GFR, ANEU, LIPID, VIDH, [id number] #### [address] [address] #### PTH #### [address] [address] HbA1c (Bld) [Mass fraction] 5.1 % Normal 4.3-6.4 [facility] Comment on above: Performed By: #### A 1C, CBC, CMP, ADIFF, GFR, ANEU, LIPID, VIDH, [id number] #### [address] [address] #### PTH #### [address] [address] CBCon 01-10-2025 Erythrocyte distribution width (RBC) [Ratio] 15.1 % Normal 11.5-15.5 [facility] Comment on above: Order Comment: STAT Performed By: #### A 1C, CBC, CMP, ADIFF, GFR, ANEU, LIPID, VIDH, [id number] #### [address] [address] #### PTH #### [address] [address] Hematocrit (Bld) [Volume fraction] 34.0 % Low 40.0-52.0 [facility] Comment on above: Order Comment: STAT Performed By: #### A 1C, CBC, CMP, ADIFF, GFR, ANEU, LIPID, VIDH, [id number] #### [address] [address] #### PTH #### [address] [address] Hgb 11.7 G/dL Low 13.0-17.5 [facility] Comment on above: Order Comment: STAT Performed By: #### A 1C, CBC, CMP, ADIFF, GFR, ANEU, LIPID, VIDH, [id number] #### [address] [address] #### PTH #### [address] [address] MCH (RBC) [Entitic mass] 36.0 pg High 27.0-33.0 [facility] Comment on above: Order Comment: STAT Performed By: #### A 1C, CBC, CMP, ADIFF, GFR, ANEU, LIPID, VIDH, [id number] #### [address] [address] #### PTH #### [address] [address] MCHC 34.5 G/dL Normal 32.0-36.0 [facility] Comment on above: Order Comment: STAT Performed By: #### A 1C, CBC, CMP, ADIFF, GFR, ANEU, LIPID, VIDH, [id number] #### [address] [address] #### PTH #### [address] [address] MCV (RBC) [Entitic vol] 104.2 fL High 81.0-100.0 [facility] Comment on above: Order Comment: STAT Performed By: #### A 1C, CBC, CMP, ADIFF, GFR, ANEU, LIPID, VIDH, [id number] #### [place] [address] #### PTH #### [place] [address] Platelet 135 10 3/mcL Low 150-450 [facility] Comment on above: Order Comment: STAT Performed By: #### A 1C, CBC, CMP, ADIFF, GFR, ANEU, LIPID, VIDH, [id number] #### [place] [address] #### PTH #### [place] [address] Platelet mean volume (Bld) [Entitic vol] 7.4 fL Normal 6.4-10.5 [facility] Comment on above: Order Comment: STAT Performed By: #### A 1C, CBC, CMP, ADIFF, GFR, ANEU, LIPID, VIDH, [id number] #### [address] [address] #### PTH #### [place] [address] RBC 3.26 10 6/mcL Low 4.50-6.00 [facility] Comment on above: Order Comment: STAT Performed By: #### A 1C, CBC, CMP, ADIFF, GFR, ANEU, LIPID, VIDH, [id number] #### [place] [address] #### PTH #### [place] [address] WBC 3.7 10 3/mcL Low 4.5-10.8 [facility] Comment on above: Order Comment: STAT Performed By: #### A 1C, CBC, CMP, ADIFF, GFR, ANEU, LIPID, VIDH, [id number] #### [address] [address] #### PTH #### [place] [phone] CMPon 01-10-2025 Albumin Level 3.6 G/dL Normal 3.4-4.8 [facility] Comment on above: Order Comment: STAT Performed By: #### A 1C, CBC, CMP, ADIFF, GFR, ANEU, LIPID, VIDH, [id number] #### [address] [address] #### PTH #### [place] [phone] Albumin/Globulin [Mass ratio] 1.2 {ratio} Normal 1.1-2.5 [facility] Comment on above: Order Comment: STAT Performed By: #### A 1C, CBC, CMP, ADIFF, GFR, ANEU, LIPID, VIDH, [id number] #### [address] [address] #### PTH #### [place] [id number] ALP [Catalytic activity/Vol] 61 U/L Normal 40-135 [facility] Comment on above: Order Comment: STAT Performed By: #### A 1C, CBC, CMP, ADIFF, GFR, ANEU, LIPID, VIDH, [id number] #### [address] [address] #### PTH #### [address] [address] ALT [Catalytic activity/Vol] 26 U/L Normal 16-63 [facility] Comment on above: Order Comment: STAT Performed By: #### A 1C, CBC, CMP, ADIFF, GFR, ANEU, LIPID, VIDH, [id number] #### [address] [address] #### PTH #### [address] [address] AST [Catalytic activity/Vol] 17 U/L Normal 10-40 [facility] Comment on above: Order Comment: STAT Performed By: #### A 1C, CBC, CMP, ADIFF, GFR, ANEU, LIPID, VIDH, [id number] #### [address] [address] #### PTH #### [address] [address] Bili Total 0.9 mg/dL Normal 0.2-1.0 [facility] Comment on above: Order Comment: STAT Result Comment: Use of this assay is not recommended for patients undergoing treatment with eltrombopag due to the potential for falsely elevated results. Performed By: #### A 1C, CBC, CMP, ADIFF, GFR, ANEU, LIPID, VIDH, [id number] #### [address] [address] #### PTH #### [address] [address] BUN/Creatinine Ratio 14 ratio Normal 7-27 [facility] Comment on above: Order Comment: STAT Performed By: #### A 1C, CBC, CMP, ADIFF, GFR, ANEU, LIPID, VIDH, [id number] #### [address] [address] #### PTH #### [address] [address] Calcium [Mass/Vol] 9.3 mg/dL Normal 8.4-10.2 [facility] Comment on above: Order Comment: STAT Performed By: #### A 1C, CBC, CMP, ADIFF, GFR, ANEU, LIPID, VIDH, [id number] #### [address] [address] #### PTH #### [address] [address] Chloride [Moles/Vol] 108 mmol/L High 98-107 [facility] Comment on above: Order Comment: STAT Performed By: #### A 1C, CBC, CMP, ADIFF, GFR, ANEU, LIPID, VIDH, [id number] #### [address] [address] #### PTH #### [address] [address] CO2 [Moles/Vol] 30 mmol/L Normal 23-31 [facility] Comment on above: Order Comment: STAT Performed By: #### A 1C, CBC, CMP, ADIFF, GFR, ANEU, LIPID, VIDH, [id number] #### [address] [address] #### PTH #### [address] [address] Creatinine [Mass/Vol] 1.58 mg/dL High 0.67-1.17 [facility] Comment on above: Order Comment: STAT Performed By: #### A 1C, CBC, CMP, ADIFF, GFR, ANEU, LIPID, VIDH, [id number] #### [address] [address] #### PTH #### [address] [address] Electrolyte Balance 8.0 mEq/L Normal 4.0-15.0 [facility] Comment on above: Order Comment: STAT Performed By: #### A 1C, CBC, CMP, ADIFF, GFR, ANEU, LIPID, VIDH, [id number] #### [address] [address] #### PTH #### [address] [address] Globulin 2.9 G/dL Normal 2.7-4.4 [facility] Comment on above: Order Comment: STAT Performed By: #### A 1C, CBC, CMP, ADIFF, GFR, ANEU, LIPID, VIDH, [id number] #### [address] [address] #### PTH #### [address] [address] Glucose [Mass/Vol] 97 mg/dL Normal 83-110 [facility] Comment on above: Order Comment: STAT Performed By: #### A 1C, CBC, CMP, ADIFF, GFR, ANEU, LIPID, VIDH, [id number] #### [address] [address] #### PTH #### [address] [address] Potassium [Moles/Vol] 4.8 mmol/L Normal 3.5-5.1 [facility] Comment on above: Order Comment: STAT Performed By: #### A 1C, CBC, CMP, ADIFF, GFR, ANEU, LIPID, VIDH, [id number] #### [address] [address] #### PTH #### [address] [address] Sodium [Moles/Vol] 146 mmol/L High 136-145 [facility] Comment on above: Order Comment: STAT Performed By: #### A 1C, CBC, CMP, ADIFF, GFR, ANEU, LIPID, VIDH, [id number] #### [address] [address] #### PTH #### [address] [address] Total Protein 6.5 G/dL Normal 6.4-8.2 [facility] Comment on above: Order Comment: STAT Performed By: #### A 1C, CBC, CMP, ADIFF, GFR, ANEU, LIPID, VIDH, [id number] #### [address] [address] #### PTH #### [address] [address] Urea nitrogen [Mass/Vol] 22 mg/dL High 7-18 [facility] Comment on above: Order Comment: STAT Performed By: #### A 1C, CBC, CMP, ADIFF, GFR, ANEU, LIPID, VIDH, [id number] #### [place] [address] [place], [place] [address] #### PTH #### [address] [address] CRPon 01-10-2025 C-Reactive Protein 0.1 mg/dL Normal 0.0-0.3 [facility] Comment on above: Order Comment: STAT Performed By: #### A 1C, CBC, CMP, ADIFF, GFR, ANEU, LIPID, VIDH, [id number] #### [place] [address] [place], [place] [address] #### PTH #### [address] [address] LABORATORYOrdered By: SYSTEM SYSTEM on 01-10-2025 Albumin BCP dye [Mass/Vol] 3.6 G/dL Normal 3.4 - 4.8 G/dL AO ADM SS Albumin/Globulin [Mass ratio] 1.2 {ratio} Normal 1.1 - 2.5 ratio AO ADM SS ALP [Catalytic activity/Vol] 61 U/L Normal 40 - 135 U/L AO ADM SS ALT With P-5'-P [Catalytic activity/Vol] 26 U/L Normal 16 - 63 U/L AO ADM SS AST With P-5'-P [Catalytic activity/Vol] 17 U/L Normal 10 - 40 U/L AO ADM SS Basophils (Bld) [#/Vol] 0.0 103/mcL Normal 0.0 - 0.3 10^3/mcL AO Workflow SS Basophils/100 WBC (Bld) 0.5 % Normal 0.0 - 2.5 % AO Workflow SS Bilirubin [Mass/Vol] 0.9 mg/dL Normal 0.2 - 1 .0 mg/dL AO ADM SS Comment on above: Interpretive Data: U se of this assay is not recommended for patients undergoing treatment with eltrombopag due to the potential for falsely elevated results. Calcium [Mass/Vol] 9.3 mg/dL Normal 8.4 - 10. 2 mg/dL AO ADM SS Chloride [Moles/Vol] 108 mmol/L High 98 - 10 7 mmol/L AO ADM SS CO2 [Moles/Vol] 30 mmol/L Normal 23 - 31 mmol/L AO ADM SS Creatinine [Mass/Vol] 1.58 mg/dL High 0.67 - 1.17 mg/dL AO ADM SS CRP [Mass/Vol] 0.1 mg/dL Normal 0.0 - 0.3 mg/dL AO ADM SS Electrolyte Balance 8.0 mEq/L Normal 4.0 - 15 .0 mEq/L AO ADM SS Eosinophil, Absolute 0.2 103/mcL Normal 0.0 - 0 .7 10^3/mcL AO Workflow SS Eosinophils/100 WBC (Bld) 4.8 % Normal 0.0 - 6.0 % AO Workflow SS Erythrocyte distribution width (RBC) [Ratio] 15.1 % Normal 11.5 - 15.5 % AO Workflow SS Estimated Glomerular Filtration Rate 44 ml/min/1.73sqm Invalid Interpretation Code AO Chemistry [...] race factor to calculate the eGFR results. Globulin 2.9 G/dL Normal 2.7 - 4.4 G/dL AO ADM SS Glucose [Mass/Vol] 97 mg/dL Normal 83 - 110 mg/dL AO ADM SS Glucose [Mass/Vol] 100 mg/dL Invalid Interpretation Code AO Chemistry S Comment on above: Interpretive Data: E stimated average glucose (eAG) is a calculated value from Hemoglobin A1C and is welding equipment sales representative of the average blood glucose level in the last 2-3 month period. Normal range: less than 114 mg/dL HbA1c (Bld) [Mass fraction] 5.1 % Normal 4.3 - 6.4 % AO ADM SS Hematocrit (Bld) [Volume fraction] 34.0 % Low 40.0 - 52.0 % AO Workflow SS Hemoglobin (Bld) [Mass/Vol] 11.7 G/dL Low 13.0 - 17.5 G/dL AO Workflow SS Lipase [Catalytic activity/Vol] 46 U/L Normal 16 - 77 U/L AO ADM SS Lymphocytes (Bld) [#/Vol] 0.9 103/mcL Normal 0.9 - 4.3 10^3/mcL AO Workflow SS Lymphocytes/100 WBC (Bld) 23.3 % Normal 20.0 - 40.0 % AO Workflow SS MCH (RBC) [Entitic mass] 36.0 pg High 27.0 - 33.0 pg AO Workflow SS MCHC 34.5 G/dL Normal 32.0 - 36.0 G/dL AO Workflow SS MCV (RBC) [Entitic vol] 104.2 fL High 81.0 - 100.0 fL AO Workflow SS Monocytes (Bld) [#/Vol] 0.3 103/mcL Normal 0.1 - 1.4 10^3/mcL AO Workflow SS Monocytes/100 WBC (Bld) 8.6 % Normal 2.0 - 13.0 % AO Workflow SS Neutrophils (Bld) [#/Vol] 2.3 103/mcL Normal 2.3 - 8.1 10^3/mcL AO Workflow SS Neutrophils/100 WBC (Bld) 62.8 % Normal 50.0 - 75.0 % AO Workflow SS Platelet mean volume (Bld) [Entitic vol] 7.4 fL Normal 6.4 - 10.5 fL AO Workflow SS Platelets (Bld) [#/Vol] 135 103/mcL Low 150 - 450 10^3/mcL AO Workflow SS Potassium [Moles/Vol] 4.8 mmol/L Normal 3.5 - 5.1 mmol/L AO ADM SS Protein [Mass/Vol] 6.5 G/dL Normal 6.4 - 8.2 G/dL AO ADM SS RBC (Bld) [#/Vol] 3.26 106/mcL Low 4.50 - 6.0 0 10^6/mcL AO Workflow SS Sodium [Moles/Vol] 146 mmol/L High 136 - 145 mmol/L AO ADM SS Urea nitrogen [Mass/Vol] 22 mg/dL High 7 - 18 mg/dL AO ADM SS Urea nitrogen/Creatinine [Mass ratio] 14 ratio Normal 7 - 27 ratio AO ADM SS WBC (Bld) [#/Vol] 3.7 103/mcL Low 4.5 - 10.8 10^3/mcL AO Workflow SS LABORATORYOrdered By: Carito Mathis on 01-10-2025 Albumin DL <= 20 mg/L (U) [Mass/Vol] 18.9 mg/L Invalid Interpretation Code AO ADM SS Albumin/Creatinine DL <= 20 mg/L (U) [Mass ratio] 16 mg/G Normal 0 - 30 mg/G AO Chemistry S Cholesterol [Mass/Vol] 134 mg/dL Normal 0 - 2 00 mg/dL AO ADM SS Comment on above: Interpretive Data: C holesterol Reference Interval: Less than 200 Desirable 200-239 Borderline high risk 240 and above High risk Cholesterol in HDL [Mass/Vol] 53 mg/dL Normal 40 - 60 mg/dL AO ADM SS Cholesterol in LDL [Mass/Vol] 64 mg/dL Normal 0 - 130 mg/dL AO ADM SS Creatinine (U) [Mass/Vol] 114.9 mg/dL Invalid Interpretation Code AO ADM SS Triglyceride [Mass/Vol] 83 mg/dL Normal 0 - 150 mg/dL AO ADM SS Comment on above: Interpretive Data: T riglyceride Reference Interval: Less than 150 Normal 150-199 Borderline high risk 200-499 High risk 500 or higher Very high risk LIPon 01-10-2025 Lipase Level 46 U/L Normal 16-77 [facility] Comment on above: Order Comment: STAT Performed By: #### A 1C, CBC, CMP, ADIFF, GFR, ANEU, LIPID, VIDH, [id number] #### [address] [address] #### PTH #### [address] [address] LIPIDon 01-10-2025 Cholesterol [Mass/Vol] 134 mg/dL Normal 0-200 [facility] Comment on above: Result Comment: Chol esterol Reference Interval: Less than 200 Desirable 200-239 Borderline high risk 240 and above High risk Performed By: #### A 1C, CBC, CMP, ADIFF, GFR, ANEU, LIPID, VIDH, [id number] #### [address] [address] #### PTH #### [address] [address] Cholesterol in HDL [Mass/Vol] 53 mg/dL Normal 40-60 [facility] Comment on above: Performed By: #### A 1C, CBC, CMP, ADIFF, GFR, ANEU, LIPID, VIDH, [id number] #### [address] [address] #### PTH #### [address] [address] Cholesterol in LDL [Mass/Vol] 64 mg/dL Normal 0-130 [facility] Comment on above: Performed By: #### A 1C, CBC, CMP, ADIFF, GFR, ANEU, LIPID, VIDH, [id number] #### [address] [address] #### PTH #### [address] [address] Triglyceride [Mass/Vol] 83 mg/dL Normal 0-150 [facility] Comment on above: Result Comment: Trig lyceride Reference Interval: Less than 150 Normal 150-199 Borderline high risk 200-499 High risk 500 or higher Very high risk Performed By: #### A 1C, CBC, CMP, ADIFF, GFR, ANEU, LIPID, VIDH, [id number] #### [address] [address] #### PTH #### [address] [address] MALBRon 01-10-2025 U Creatinine 114.9 mg/dL Normal [facility] Comment on above: Performed By: #### A 1C, CBC, CMP, ADIFF, GFR, ANEU, LIPID, VIDH, [id number] #### [address] [address] #### PTH #### [address] [address] U Microalb 18.9 mg/L Normal [facility] Comment on above: Performed By: #### A 1C, CBC, CMP, ADIFF, GFR, ANEU, LIPID, VIDH, [id number] #### [address] [address] #### PTH #### [address] [address] U Ratio Alb/Cre 16 mg/G Normal 0-30 [facility] Comment on above: Performed By: #### A 1C, CBC, CMP, ADIFF, GFR, ANEU, LIPID, VIDH, [id number] #### [facility] [address] [place], [place] [address] #### PTH #### [facility] [address] [place] [address] Neurology Visit Reporton Neurology Visit Report [facility] [address] [place] [address] OFFICE VISIT Date of Service: 12/28/24 MR#: [id number] Acct: [id number] Name: IVAN SALAS Rep #: [id number] : 1945 Provider: ISABELL augustine Age/Sex: 79/M Location: [facility]. Status: Signed HPI HPI Chief Complaint: Establish care Details: History of present illness: Mr. Salas is a 79-year-old male who presents to neurology today 12/28/2024 to establish care following hospitalization for TIA. He is accompanied by his granddaughter. Pertinent past medical history includes hyperlipidemia, essential hypertension, CAD, aortic valve replacement (bovine), CKD, chronic anemia, and BPH. There is no neurological history. Patient is not a smoker. He is not diabetic. There is a question of sleep apnea and patient needs a sleep study. On 11/26/2024, patient presented to the [facility] ER with transient left upper extremity weakness. NIHSS of 2. TNK was not given due to low score. Symptoms lasted approximately 2.5 hours before resolution. Stroke workup was initiated. CT brain was without acute findings. CTA head/neck without LVO. There was mild calcified plaque throughout without focal stenosis or narrowing. MRI brain (11/28/2024) with no acute stroke. Chronic small vessel ischemic disease. EKG was sinus bradycardia. He is prescribed a beta-azid. TTE with normal LV systolic function, EF 65%, severe left atrial enlargement, and bioprosthetic aortic valve with normal function. LDL 75; hemoglobin A1c 5.6%; TSH 1.270 He was discharged on DAPT x 21 days followed by aspirin 81 mg monotherapy. He remained on his rosuvastatin with addition of Zetia. A 30-day Holter monitor was also ordered that he recently completed- results are still pending at this time. -------- ROS: General: No fatigue. No recent weight loss/gain. No recent illness. No fevers. No recent falls. Neuro: No headaches. No dizziness. No numbness/tingling. No weakness. No tremors. Psych: No insomnia or hypersomnia. No agitation. No depressive symptoms. No memory difficulties. Cardio: No palpitations. No chest pain or discomfort. No edema. Has shortness of breath when climbing stairs. Respiratory: Nonsmoker. No cough. No wheezing. Musculoskeletal: No use of assistive devices. No neck pain. Chronic mild back pain. History of bilateral knee replacements. History of bilateral hip replacements. HEENT: No blurry vision. No diplopia. No dysphagia. Bilateral ocular lens replacements. Wears glasses. GI: No hematochezia. No NVD. No constipation. No abdominal pain or discomfort. : No hematuria. No frequency or urgency. No incontinence. No dysuria. Skin: No ecchymosis. No wounds, rashes, or lesions. -------- PHYSICAL EXAM: Constitutional: Well-developed, well-nourished right-handed male in no acute distress. Psych: Cooperative. Judgement and insight good. HEENT: Normocephalic. Atraumatic. Hearing grossly normal bilaterally. Periorbital findings are normal. Respiratory: Normal effort. Symmetric chest movement. Clear, diminished to auscultation bilaterally. Cardio: Regular rate and rhythm. No auscultated murmurs. No auscultated carotid bruit. Radial pulses 2+ bilaterally. GI: Abdomen is soft, flat, nondistended. Nontender. Bowel sounds normal. Musculoskeletal: No muscle weakness. No difficulties with ROM. Extremities: Absence of edema. No peripheral cyanosis. Skin: No visible wounds or lesions. No visible ecchymosis. Normal skin turgor. Neurological exam: Mental status: Alert, awake, oriented x 4. Speech is fluent with good comprehension. Cranial nerves II-XII: PERRL 4 mm in size bilaterally. EOM intact. Ocular pursuit is smooth. There are no visual field deficits. Facial sensation is intact. Face is symmetric at rest and with activation. No ptosis. Tongue is midline. Phonation is normal. Swallowing is intact. Cerebellum: No nystagmus. No dysmetria; normal [id number] maneuvers. Reflexes: Triceps and biceps deep tendon reflexes 2+ and symmetric bilaterally. Patellar deep tendon reflexes were unable to be elicited (hx of bilateral knee replacements) Motor: Muscle bulk and tone are normal. Strength is 5/5 in all 4 extremities both proximally and distally. There is no pronator drift. There is no tremor. There are no observed fasciculations. Sensory: Sensation is intact to tactile stimuli in the upper and lower extremities. Gait/Stance: Posture is normal. Gait is normal. -------- Assessment and Plan Assessment and Plan (1) TIA (transient ischemic attack): Status: Acute Comment: 11/26/2024 P (more content not included)... Normal [facility] Brain without Contraston Brain without Contrast [facility] Imaging Services [address] [place] [id number] Brain without Contrast MR#: [id number] Acct: [id number] Name: IVAN SALAS Rep #: [id number] : 1945 M 79 From: Jarad Real DO PCP: Chi Duran, ELEVATING GRADER OPERATOR-C Status: ADM MARINO Study: Brain without Contrast Date of Exam: 11/28/24 Exam# [id number] Ordering Dr: Josefa Roberts MD PROCEDURE: BRAIN WITHOUT CONTRAST 11/28/2024 REASON FOR EXAM: CVA. Left arm weakness. TECHNIQUE: Noncontrast brain MRI. Multiplanar and multisequence images were obtained. COMPARISON: Contrast CT brain 2024 FINDINGS: Brain: No restricted diffusion. No intra-axial or extra-axial hemorrhage. No mass, mass effect or midline shift. Periventricular and deep white matter/FLAIR hyperintensities indicating chronic small-vessel ischemic disease. Ventricles: Prominent ventricles and sulci indicating involutional change. Major Intracranial Vessels: Normal vascular flow voids in the anterior circulation and vertebrobasilar system Sinuses: Mild mucosal thickening changes in the ethmoid air cells, left maxillary sinus Mastoids: Minimal right and left opacified air cells. No obvious nasal pharyngeal mass MRI/Brain without Contrast IMPRESSION: No restricted diffusion. No acute process. Age-related changes. Called report to Jovita Whitmore RN at 10:30 AM. Negative, no hemorrhage. Reading Location: [facility] CC: ELEVATING GRADER OPERATOR-C Chi Duran; Dr. Josefa Roberts MD Radio Control Crane Operator: Signed Normal [facility] Discharge Instructionon Discharge Instruction [facility] Medical Records Department [address] [place] [address] Instructions for Home/Discharge Instructions 11/28/24 1041 MR#: [id number] Acct: [id number] Name: IVAN SALAS Rep #: [id number] : 1945 79 From: Thompson Payne DO PCP: Chi Duran, ELEVATING GRADER OPERATOR-C Status:ADM MARINO Discharge Instructions Diet Discharge Diet: No restrictions DC O2, CPAP, BIPAP needs Home O2 Discharge instructions: No Dressing / Incision Discharge Activity: Return to Normal Activity Weight Bearing Status: Full weight bearing Follow Up Care Test Results: Test results from this visit will be discussed in further detail at your follow-up appointment, if applicable. Discharge Plan Admission Admit Date/Time: 11/26/24 21:50 Primary Reason for Your Visit: TIA Attending Provider: Thompson Payne Primary Care Provider: Chi Duran NP Consulting Providers: Dick Montana; Zia Goldstein; Idalia Mitchell; Veronique Nice; Tori Rivera; Agusto Clay; Carissa Graham; Hernando Clifton; Ivan Rivera; Samuel Mills; Anabel Schmitt; Vinay Rubin; Myesha Erickson; Layo Pittman; Ottoniel Vital; Jarad Meyer; July Dumont; Yariel Lin; Yoli Tinoco; Trevor Cummins; Josefa Roberts Discharge Orders/Prescriptions Prescriptions: New clopidogrel 75 mg Tablet 75 mg PO DAILY Qty: 21 0RF ezetimibe [Zetia] 10 mg tablet 10 mg PO DAILY Qty: 30 0RF Continued metoprolol succinate 25 mg tablet extended release 24 hr 12.5 mg PO DAILY rosuvastatin 40 mg tablet 40 mg PO DAILY aspirin 81 mg capsule 81 mg PO DAILY tamsulosin 0.4 mg capsule 0.4 mg PO DAILY finasteride 5 mg tablet 5 mg PO DAILY cholecalciferol (vitamin D3) [Vitamin D3] 25 mcg (1,000 unit) capsule 1,000 unit PO QDAY Other Ambulatory Orders: 30 Day Event Recorder Preventi (Routine) Timeframe: 1 Day Facility: [facility] - Location: Cardiovascular Services Ordered By: Dr. Thompson Payne Referrals / Follow Up: Jones Hummel MD [Non-Staff -Ordering Privileges] - See Referral Note (as scheduled) Chi Duran NP, ELEVATING GRADER OPERATOR-C [Primary Care Provider] - Within 2 Weeks Disposition Disposition (needs filled in before D/C Order can be placed): Home, Self Care 11/28/24 1101 Thompson Payne DO CC: Veronique Nice; Myesha Erickson; ELEVATING GRADER OPERATOR-C Chi Duran; Jarad Meyer; Tori Rivera MD; Idalia Mitchell MD; Dick Montana MD; Dr. Zia Goldstein MD; Dr. Josefa Roberts MD; Dr. Agusto Clay MD; Dr. Carissa Graham MD; Dr. Ivan Rivera MD; Dr. Hernando Clifton MD; Dr. Samuel Mills MD; Dr. Vinay Rubin DO; Dr. Ottoniel Vital MD; Dr. Layo Pittman MD; Dr. July Dumont MD; Dr. Yariel Lin MD; Dr. Yoli Tinoco MD; Anabel Schmitt DO; Trevor Cummins MD Signed Normal [facility] Echocardiogram study reportO rdered By: Janee Chicas on 11-28-2024 Study report [facility] Cardiovascular Services [address] [facility] [place] [address] Echo Complete 11/28/24 0828 MR#: [id number] Acct: [id number] Name: IVAN SALAS Rep #:[id number] : 1945 79 From: Janee Chicas MD Attending Dr: Dr. Thompson Payne DO Status: ADM MARINO Ordering Dr: Josefa Roberts MD Date: 11/26/24 Location: [facility] Sex: M C Admitted: 11/26/24 Reason For Study Reason For Study: TIA/CVA Procedure This was a 2D Doppler, Color Flow transthoracic echocardiogram. The study was technically difficult. Exam performed portable in patient room. Left Ventricle Normal size and thickness. The LV systolic function is normal. EF is 65 %. Normal diastology for age. Right Ventricle Normal right ventricle. Atria The left atrium is severely enlarged. Normal right atrium. Mitral Valve Mild mitral annular calcification. Trivial mitral valve insufficiency. Tricuspid Valve Trivial tricuspid valve insufficiency. Unable to estimate RV systolic pressure due to insufficient tricuspid regurgitant envelope. Aortic Valve Bioprosthetic aortic valve appears functioning normally. Mean peak gradient 11 mmHg. Pulmonic Valve The pulmonic valve is not well visualized. Great Vessels Normal sized aortic root. Pericardium/Pleural No pericardial effusion. MMode/2D Measurements & Calculations LVIDd: 3.8 cm IVSd: 0.98 cm LVOT diam: 2.0 cm LVIDs: 2.6 cm LVPWd: 0.90 cm LVOT area: 3.0 cm2 RVDd: 3.5 cm FS: 31.7 % LA dimension: 4.9 cm asc Aorta Diam: 3.4 cm LAV(MOD-bp): 53.5 ml LAV(MOD-bp) Indexed: 24.3 ml/m2 LAV(MOD-sp2): 56.9 ml LAV(MOD-sp4): 41.7 ml SV(MOD-sp4): 47.9 ml LVAd ap4: 29.9 cm2 LVAd ap2: 28.4 cm2 LVLd ap4: 8.7 cm LVLd ap2: 8.6 cm SI(MOD-sp4): 21.7 ml/m2 EDV(MOD-sp4): 84.1 ml EDV(MOD-sp2): 78.4 ml EDV(sp4-el): 87.2 ml EDV(sp2-el): 79.7 ml LVAs ap4: 17.8 cm2 LVAs ap2: 11.8 cm2 LVLs ap4: 7.7 cm LVLs ap2: 6.6 cm ESV(MOD-sp4): 36.2 ml ESV(MOD-sp2): 20.9 ml ESV(sp4-el): 34.9 ml ESV(sp2-el): 18.1 ml EF(MOD-sp4): 56.9 % EF(MOD-sp2): 73.4 % EF(sp4-el): 60.0 % SV(MOD-sp2): 57.5 ml SV(sp4-el): 52.3 ml Ao sinusdiam: 3.6 cm SI(MOD-sp2): 26.1 ml/m2 ___ __ LA dimension(2D): 4.5 cm LA A4 area: 16.6 cm2 RA A4 area: 12.6 cm2 TAPSE: 1.1 cm Time Measurements MV dec time: 0.30 sec Doppler Measurements & Calculations MV E max jace: 70.7 cm/sec Lat Peak E' Jace: 8.5 cm/sec Med Peak E' Jace: 7.7 cm/sec MV A max jace: 86.0 cm/sec E/E' lat: 8.4 E/E' med: 9.2 MV E/A: 0.82 MV dec slope: 238.3 cm/sec2 Ao V2 max: 225.0 cm/sec LV V1 max: 154.9 cm/sec Ao max P.3 mmHg LV V1 max P.6 mmHg Ao V2 mean: 160.0 cm/sec LV V1 mean P.6 mmHg Ao mean P.4 mmHg LV V1 mean: 124.5 cm/sec Ao V2 VTI: 48.3 cm LV V1 VTI: 35.5 cm AV (velocity ratio): 0.74 EL(I,D): 2.2 cm2 EL(V,D): 2.1 cm2 SV(LVOT): 107.4 ml PA V2 max: 98.3 cm/sec ECHO/Echo Complete Interpretation Summary The LV systolic function is normal. EF is 65 %. The left atrium is severely enlarged. Bioprosthetic aortic valve appears functioning normally. Mean peak gradient 11 mmHg. Ordering Physician: Josefa Roberts Performed By: Ximena Williamson RDCS 11/28/24 1241 Date _ Janee Chicas MD CC: ISABELL Duran; Dr. Josefa Roberts MD; Dr. Thompson Payne DO ~ Date Dictated: 11/28/24827 Date Transcribed: 11/28/24 124 Radio Control Crane Operator: Signed [facility] Work Phone: Electrocardiogram reportOrde red By: Derick Ellis on 11-28-2024 EKG study [facility] Cardiovascular Services [address] [place] [address] 12 Lead EKG 11/26/242103 MR#: [id number] Acct: [id number] Name: IVAN SALAS Rep #:[id number] : 1945 79 From: Derick simpson MD Attending Dr: Dr. Thompson Payne DO Status: ADM MARINO Ordering Dr: Arnol Estrada DO Date: 0 11/26/24 Location: [facility] Sex: M C Admitted: 11/26/24 Test Reason : STROKE Blood Pressure : */* mmHG Vent. Rate : 69 BPM Atrial Rate : 69 BPM P-R Int : 198 ms QRS Dur : 112 ms QT Int : 420 ms P-R-T Axes : 7 27 89 degrees QTcB Int : 450 ms Sinus rhythm with frequent Premature ventricular complexes Lateral infarct (cited on or before 30-Apr-2012) Abnormal ECG Confirmed by Derick Ellis ([id number]), editorial director BLANKA SERRANO ([id number]) on 11/28/2024 9:35:13 AM Referred By: Confirmed By: Derick Ellis 11/28/24934 Date _ Derick Ellis MD CC: ISABELL Duran; Dr. Thompson Payne DO; Dr. Arnol Estrada DO ~ Signed [facility] Other Phone: Hemoglobin A1con 11-28-2024 HbA1c (Bld) [Mass fraction] 5.6 % Normal <=5.6 [facility] Comment on above: Result Comment: Norm al < 5.7 % Prediabetic 5.7 - 6.4 % Diabetic >or= 6.5 % Please note range changes. Performed By: #### L 501.9985, L501.9520, L100.0100, L500.4100, L500.4050 #### [facility] Laboratory [address] [place], [address] Magnetic resonance imaging r eportOrdered By: Jarad Real on 11-28-2024 Study report [facility] Imaging Services [address] [place], [place] [address] Brain without Contrast MR#: [id number] Acct: [id number] Name: IVAN SALAS Rep #: [id number] : 1945 M 79 From: Pet er Peer DO PCP: Chi Duran, ELEVATING GRADER OPERATOR-C Status: ADM MARINO Study:Brain without Contrast Date of Exam: 11/28/24 Exam# [id number] Ordering Dr: Riddhi Roberts MD PROCEDURE: BRAIN WITHOUT CONTRAST 11/28/2024 REASON FOR EXAM: CVA. Left arm weakness. TECHNIQUE: Noncontrast brain MRI. Multiplanar and multisequence images were obtained. COMPARISON: Contrast CT brain 2024 FINDINGS: Brain: No restricted diffusion. No intra-axial or extra-axial hemorrhage. No mass, mass effect or midline shift. Periventricular and deep white matter/FLAIR hyperintensities indicating chronic small-vessel ischemic disease. Ventricles: Prominent ventricles and sulci indicating involutional change. Major Intracranial Vessels: Normal vascular flow voids in the anterior circulation and vertebrobasilar system Sinuses: Mild mucosal thickening changes in the ethmoid air cells, left maxillary sinus Mastoids: Minimal right and left opacified air cells. No obvious nasal pharyngeal mass MRI/Brain without Contrast IMPRESSION: No restricted diffusion. No acute process. Age-related changes. Called report to Jovita Whitmore RN at 10:30 AM. Negative, no hemorrhage. Reading Location: [facility] CC: ISABELL Duran; Dr. Josefa Roberts MD ~ Radio Control Crane Operator: Signed [facility] Absolute lymphocyte countOrd ered By: Josefa Roberts on 11-27-2024 Lymphocytes Auto (Unsp spec) [#/Vol] 0.74 10*3/uL Low 0.83-4.51 [facility] Absolute neutrophil countOrd ered By: Josefa Roberts on 11-27-2024 Neutrophils (Bld) [#/Vol] 2.3 10*3/uL 2.0-7.7 [facility] Anion gap in Serum or Plasma Ordered By: [facility] Alejandra on 11-27-2024 Anion gap [Moles/Vol] 11 mmol/L 5-15 [facility] Automated blood erythrocyte countOrdered By: Josefa Roberts on 11-27-2024 RBC (Bld) [#/Vol] 2.89 10*6/uL Low 4.6-6.2 [facility] Comment on above: Performed By: #### L 501.9985, L501.9520, L100.0100, L500.4100, L500.4050 #### [facility] Laboratory [address] [facility]. [place], [place], [id number] Automated blood hematocrit ( percentage)Ordered By: Josefa Roberts on 11-27-2024 Hematocrit (Bld) [Volume fraction] 29.1 % Low 40-54 [facility] Comment on above: Performed By: #### L 501.9985, L501.9520, L100.0100, L500.4100, L500.4050 #### [facility] [address] [facility]. [place], [place], [id number] Automated lymphocyte count a s percentage of total leukocytesOrdered By: Josefa Alejandra on 11-27-2024 Lymphocytes/100 WBC Auto (Unsp spec) 21.6 % 19-41 [facility] BUN/creatinine ratioOrdered By: Josefa Roberts on 11-27-2024 Urea nitrogen/Creatinine [Mass ratio] 14.9 mg/mg 10-20 [facility] Basophil percentageOrdered B y: Josefa Alejandra on 11-27-2024 Basophils/100 WBC (Bld) 0.3 % Normal 0-1 [facility] Comment on above: Performed By: #### L 501.9985, L501.9520, L100.0100, L500.4100, L500.4050 #### [facility] [address] [place], [address] Bilirubin, totalOrdered By: Josefa Roberts on 11-27-2024 Bilirubin [Mass/Vol] 0.61 mg/dL Normal 0.00-1.30 [facility] Comment on above: Performed By: #### L 501.9985, L501.9520, L100.0100, L500.4100, L500.4050 #### [facility] [address] [place], [address] CBC W/Diff, Automatedon 06 Absolute Lymph 0.74 X10 3/uL Low 0.83-4.51 [facility] Comment on above: Performed By: #### L 501.9985, L501.9520, L100.0100, L500.4100, L500.4050 #### [facility] [address] [place], [address] Absolute Neut 2.3 X10 3/uL Normal 2.0-7.7 [facility] Comment on above: Performed By: #### L 501.9985, L501.9520, L100.0100, L500.4100, L500.4050 #### [facility] [address] [place], [address] IG% 0.300 Normal 0.0-0.9 [facility] Comment on above: Result Comment: IG% - Immature Granulocytes (promyelocytes, myelocytes and metamyelocytes) > 1% indicates that a LEFT SHIFT is Present. Performed By: #### L 501.9985, L501.9520, L100.0100, L500.4100, L500.4050 #### [facility] [facility] [address] [place], [address] Lymphocytes/100 WBC (Bld) 21.6 % Normal 19-41 [facility] Comment on above: Performed By: #### L 501.9985, L501.9520, L100.0100, L500.4100, L500.4050 #### [facility] [address] [place], [address] Nucleated RBC (Bld) [#/Vol] 0 10*3/uL Normal 0-5 [facility] Comment on above: Performed By: #### L 501.9985, L501.9520, L100.0100, L500.4100, L500.4050 #### [facility] [address] [place], [address] RDW SD 51.3 fl High 35.1-43.9 [facility] Comment on above: Performed By: #### L 501.9985, L501.9520, L100.0100, L500.4100, L500.4050 #### [facility] [address] [place], [address] Calculated very low density lipoprotein (VLDL) cholesterol measurementOrdered By: Josefa Roberts on 11-27-2024 Calculated very low density lipoprotein (VLDL) cholesterol measurement 20 mg/dL 5-40 [facility] Carbon dioxide, total [Moles /volume] in Central venous bloodOrdered By: Josefa Roberts on 11-27-2024 CO2 [Moles/Vol] 22.3 mmol/L Normal 21.0-32.0 [facility] Comment on above: Performed By: #### L 501.9985, L501.9520, L100.0100, L500.4100, L500.4050 #### [facility] [address] [place], [address] Chloride assayOrdered By: Riddhi Roberts on 11-27-2024 Chloride [Moles/Vol] 105 mmol/L Normal 98-108 [facility] Comment on above: Performed By: #### L 501.9985, L501.9520, L100.0100, L500.4100, L500.4050 #### [facility] [address] [place], [address] Comprehensive Metabolic Prof ilon 11-27-2024 ALK PHOS 81 U/L Normal 40-129 [facility] Comment on above: Performed By: #### L 501.9985, L501.9520, L100.0100, L500.4100, L500.4050 #### [facility] [address] [place], [address] BUN/CRE 14.9 RATIO Normal 10-20 [facility] Comment on above: Performed By: #### L 501.9985, L501.9520, L100.0100, L500.4100, L500.4050 #### [facility] [address] [place], [address] ECRCL 37.09 ml/min Low 50-250 [facility] Comment on above: Performed By: #### L 501.9985, L501.9520, L100.0100, L500.4100, L500.4050 #### [facility] [address] [place], [address] GAP 11 Normal 5-15 [facility] Comment on above: Performed By: #### L 501.9985, L501.9520, L100.0100, L500.4100, L500.4050 #### [facility] [address] [place], [address] Potassium [Moles/Vol] 4.0 mmol/L Normal 3.3-5.1 [facility] Comment on above: Performed By: #### L 501.9985, L501.9520, L100.0100, L500.4100, L500.4050 #### [facility] [address] [place], [place], [id number] T PROT 6.0 g/dL Normal 5.9-8.4 [facility] Comment on above: Performed By: #### L 501.9985, L501.9520, L100.0100, L500.4100, L500.4050 #### [facility] [address] [place], [address] Comprehensive Metabolic Prof ilOrdered By: Josefa Alejandra on 11-27-2024 AST [Catalytic activity/Vol] 17 U/L Normal <=37 [facility] Comment on above: Performed By: #### L 501.9985, L501.9520, L100.0100, L500.4100, L500.4050 #### [facility] [address] [place], [address] Eosinophil percentageOrdered By: on 11-27-2024 Eosinophils/100 WBC (Bld) 3.5 % Normal 0-5 [facility] Comment on above: Performed By: #### L 501.9985, L501.9520, L100.0100, L500.4100, L500.4050 #### [facility] [address] [place], [address] Erythrocyte distribution wid th ratioOrdered By: on 11-27-2024 Erythrocyte distribution width (RBC) [Ratio] 14.1 % Normal 11.6-14.6 [facility] Comment on above: Performed By: #### L 501.9985, L501.9520, L100.0100, L500.4100, L500.4050 #### [facility] [address] [place], [address] (044) Erythrocyte distribution wid th standard deviationOrdered By: on 11-27-2024 Erythrocyte distribution width (RBC) [Ratio] 51.3 fl High 35.1-43.9 [facility] Glomerular filtration rate ( GFR) estimation/1.73 sq m using serum, plasma, or whole bOrdered By: Josefa Roberts on 11-27-2024 GFR/1.73 sq M.predicted among non-blacks MDRD (S/P/Bld) [Vol rate/Area] 33 mL/min/{1.73_m2} Low >60 [facility] Comment on above: mL/min/1.73m2 CKD-EP I Creatinine Equation (2020) Result Comment: mL/m in/1.73m2 CKD-EPI Creatinine Equation (2020) Performed By: #### L 501.9985, L501.9520, L100.0100, L500.4100, L500.4050 #### [facility] [address] [place], [place], [id number] Hemoglobin A1c percentageOrd ered By: Josefa Roberts on 11-27-2024 HbA1c (Bld) [Mass fraction] 5.6 % <5.7 [facility] Comment on above: Normal < 5.7 % Predi abetic 5.7 - 6.4 % Diabetic >or= 6.5 % Please note range changes. Hemoglobin measurementOrdere d By: Josefa Roberts on 11-27-2024 Hemoglobin (Bld) [Mass/Vol] 10.0 g/dL Low 13.0-16.5 [facility] Comment on above: Performed By: #### L 501.9985, L501.9520, L100.0100, L500.4100, L500.4050 #### [facility] [address] [place], [place], [id number] Immature granulocytes/100 WB C Auto (Bld)Ordered By: Josefa Roberts on 11-27-2024 Immature granulocytes/100 WBC (Bld) 0.300 % 0.0-0.9 [facility] Comment on above: IG% - Immature Granu locytes (promyelocytes, myelocytes and metamyelocytes) > 1% indicates that a LEFT SHIFT is Present. L499.0042on 11-27-2024 Trop T High Sen 34 ng/L High <=22 [facility] Comment on above: Performed By: #### L 499.0042 #### [facility] [address] [place], [address] L499.0043on 11-27-2024 Trop T High Sen 34 ng/L High <=22 [facility] Comment on above: Performed By: #### L 499.0042 #### [facility] [address] [place], [address] LDL calc ser/plasOrdered By: Josefa Roberts on 11-27-2024 Cholesterol in LDL [Mass/Vol] 75 mg/dL Normal [facility] Comment on above: Zbvcvqkoop=224-282 m g/dL & Higher Nqnz=192 mg/dL or greater Result Comment: Bord soiqtr=672-272 mg/dL Higher Pude=725 mg/dL or greater Performed By: #### L 501.9985, L501.9520, L100.0100, L500.4100, L500.4050 #### [facility] [address] [place], [address] Lipid Profileon 11-27-2024 CHOL:HDL 3.54 Normal [facility] Comment on above: Performed By: #### L 501.9985, L501.9520, L100.0100, L500.4100, L500.4050 #### [facility] [address] [place], [address] Cholesterol in VLDL [Mass/Vol] 20 mg/dL Normal 5-40 [facility] Comment on above: Performed By: #### L 501.9985, L501.9520, L100.0100, L500.4100, L500.4050 #### [facility] [address] [place], [address] MCV (mean corpuscular volume ) determinationOrdered By: Josefa Roberts on 11-27-2024 MCV (RBC) [Entitic vol] 100.7 fL High 80-94 [facility] Comment on above: Performed By: #### L 501.9985, L501.9520, L100.0100, L500.4100, L500.4050 #### [facility] [address] [place], [address] Mean corpuscular hemoglobin (MCH) determinationOrdered By: Josefa Roberts on 11-27-2024 MCH (RBC) [Entitic mass] 34.6 pg High 27.0-32.0 [facility] Comment on above: Performed By: #### L 501.9985, L501.9520, L100.0100, L500.4100, L500.4050 #### [facility] [address] [place], [address] Mean corpuscular hemoglobin concentration (MCHC) determinationOrdered By: Josefa Roberts on 11-27-2024 MCHC (RBC) [Mass/Vol] 34.4 g/dL Normal 32-36 [facility] Comment on above: Performed By: #### L 501.9985, L501.9520, L100.0100, L500.4100, L500.4050 #### [facility] [address] [place], [place], [id number] Mean platelet volume determi nationOrdered By: Josefa Roberts on 11-27-2024 Platelet mean volume (Bld) [Entitic vol] 9.0 fL Normal 6.2-12.0 [facility] Comment on above: Performed By: #### L 501.9985, L501.9520, L100.0100, L500.4100, L500.4050 #### [facility] [address] [place], [address] Monocyte percentageOrdered B y: Josefa Roberts on 11-27-2024 Monocytes/100 WBC (Bld) 8.2 % Normal 0-10 [facility] Comment on above: Performed By: #### L 501.9985, L501.9520, L100.0100, L500.4100, L500.4050 #### [facility] [address] [place], [address] Neutrophil percentageOrdered By: Josefa Roberts on 11-27-2024 Neutrophils/100 WBC (Bld) 66.1 % Normal 47-70 [facility] Comment on above: Performed By: #### L 501.9985, L501.9520, L100.0100, L500.4100, L500.4050 #### [facility] [address] [place], [place], [id number] Nucleated red blood cell per centageOrdered By: Josefa Roberts on 11-27-2024 Nucleated RBC/100 WBC (Bld) [Ratio] 0 % 0-5 [facility] Platelet countOrdered By: Riddhi Roberts on 11-27-2024 Platelets (Bld) [#/Vol] 125 10*3/uL Low 150-450 [facility] Comment on above: Performed By: #### L 501.9985, L501.9520, L100.0100, L500.4100, L500.4050 #### [facility] [address] [place], [address] Potassium measurement (mass/ volume)Ordered By: Josefa Roberts on 11-27-2024 Potassium (Unsp spec) [Mass/Vol] 4.0 mmol/L 3.3-5.1 [facility] Screening total cholesterol/ high density lipoprotein (HDL) cholesterol ratioOrdered By: Josefa Roberts on 11-27-2024 Cholesterol.total/Renuka sterol in HDL [Mass ratio] 3.54 {ratio} [facility] Serum creatinine measurement (mass/volume)Ordered By: Josefa Roberts on 11-27-2024 Creatinine [Mass/Vol] 2.01 mg/dL High 0.70-1.20 [facility] Comment on above: Performed By: #### L 501.9985, L501.9520, L100.0100, L500.4100, L500.4050 #### [facility] [address] [place], [address] Serum globulin measurementOr dered By: Josefa Roberts on 11-27-2024 Globulin (S) [Mass/Vol] 2.2 g/dL Normal 2.2-4.2 [facility] Comment on above: Performed By: #### L 501.9985, L501.9520, L100.0100, L500.4100, L500.4050 #### [facility] [address] [place], [address] Serum glucose measurement (m ass/volume)Ordered By: Josefa Roberts on 11-27-2024 Glucose [Mass/Vol] 96 mg/dL Normal 70-99 [facility] Comment on above: Performed By: #### L 501.9985, L501.9520, L100.0100, L500.4100, L500.4050 #### [facility] [address] [facility] [place], [address] Serum or plasma alanine banda otransferase (ALT) measurementOrdered By: Josefa Roberts on 11-27-2024 ALT [Catalytic activity/Vol] 14 U/L Normal <=46 [facility] Comment on above: Performed By: #### L 501.9985, L501.9520, L100.0100, L500.4100, L500.4050 #### [facility] [address] [facility] [place], [address] Serum or plasma albumin natalie urement (mass/volume)Ordered By: Josefa Roberts on 11-27-2024 Albumin [Mass/Vol] 3.8 g/dL Normal 3.4-4.8 [facility] Comment on above: Performed By: #### L 501.9985, L501.9520, L100.0100, L500.4100, L500.4050 #### [facility] [address] [facility] [place], [address] Serum or plasma albumin/glob ulin mass ratioOrdered By: Josefa Roberts on 11-27-2024 Albumin/Globulin [Mass ratio] 1.7 {ratio} Normal 0.9-2.4 [facility] Comment on above: Performed By: #### L 501.9985, L501.9520, L100.0100, L500.4100, L500.4050 #### [facility] [address] [place], [place], [id number] Serum or plasma alkaline tamanna sphatase measurementOrdered By: Josefa Roberts on 11-27-2024 ALP [Catalytic activity/Vol] 81 U/L 40-129 [facility] Serum or plasma calcium natalie urement (mass/volume)Ordered By: Josefa Roberts on 11-27-2024 Calcium [Mass/Vol] 9.0 mg/dL Normal 7.6-11.0 [facility] Comment on above: Performed By: #### L 501.9985, L501.9520, L100.0100, L500.4100, L500.4050 #### [facility] [address] [place], [place], [id number] Serum or plasma cholesterol in HDL measurement (mass/volume)Ordered By: Josefa Roberts on 11-27-2024 Cholesterol in HDL [Mass/Vol] 38 mg/dL Low [facility] Comment on above: National Cholesterol Education Program (NCEP) guidelines:<40 mg/dL: Low HDL-cholesterol (major risk factor for CHD)>= 60 mg/dL: High HDL-cholesterol (negative risk factor for CHD)HDL-cholesterol is affected by a number of factors, e.g. smoking, exercise, hormones, sex and age. Result Comment: [place] Cholesterol Education Program (NCEP) guidelines: <40 mg/dL: Low HDL-cholesterol (major risk factor for CHD) >= 60 mg/dL: High HDL-cholesterol (negative risk factor for CHD) HDL-cholesterol is affected by a number of factors, e.g. smoking, exercise, hormones, sex and age. Performed By: #### L 501.9985, L501.9520, L100.0100, L500.4100, L500.4050 #### [facility] [address] [place], [address] Serum or plasma cholesterol measurement (mass/volume)Ordered By: Josefa Roberts on 11-27-2024 Cholesterol [Mass/Vol] 133 mg/dL Normal <=200 [facility] Comment on above: Cholesterol level, D esirable <200 mg/dLBorderline high cholesterol 200-239 mg/dLHigh cholesterol >=240 mg/dLRecommendations of the NCEP Adult Treatment Panel for the following risk-cutoff thresholds for the [place] population. Result Comment: Chol esterol level, Desirable <200 mg/dL Borderline high cholesterol 200-239 mg/dL High cholesterol >=240 mg/dL Recommendations of the NCEP Adult Treatment Panel for the following risk-cutoff thresholds for the [place] population. Performed By: #### L 501.9985, L501.9520, L100.0100, L500.4100, L500.4050 #### [facility] [address] [place], [place], [id number] Serum or plasma urea nitroge n measurement (mass/volume)Ordered By: Josefa Roberts on 11-27-2024 Urea nitrogen [Mass/Vol] 30 mg/dL High 4-19 [facility] Comment on above: Performed By: #### L 501.9985, L501.9520, L100.0100, L500.4100, L500.4050 #### [facility] [address] [place], [place], [id number] Sodium levelOrdered By: Sola Roberts on 11-27-2024 Sodium [Moles/Vol] 138 mmol/L Normal 133-145 [facility] Comment on above: Performed By: #### L 501.9985, L501.9520, L100.0100, L500.4100, L500.4050 #### [facility] [address] [place], [place], [id number] TSH DL <= 0.005 mIU/L QnOrde red By: Josefa Roberts on 11-27-2024 TSH Qn 1.270 uIU/mL 0.300-4.200 [facility] Thyroid Stim Hormone (TSH)on 11-27-2024 TSH 1.270 uIU/mL Normal 0.300-4.200 [facility] Comment on above: Performed By: #### L 501.9985, L501.9520, L100.0100, L500.4100, L500.4050 #### [facility] [address] [place], [address] Total proteinOrdered By: Denise Roberts on 11-27-2024 Protein [Mass/Vol] 6.0 g/dL 5.9-8.4 [facility] Triglycerides measurementOrd ered By: Josefa Roberts on 11-27-2024 Triglyceride [Mass/Vol] 101 mg/dL Normal [facility] Comment on above: The drugs N-Acetylcy steine and Metamizole may falsely depress this assay. Normal range: <150 mg/dLBorderline High: 150-199 mg/dLHigh: 200-499 mg/dLVery High: >500 mg/dL Result Comment: The drugs N-Acetylcysteine and Metamizole may falsely depress this assay. Normal range: <150 mg/dL Borderline High: 150-199 mg/dL High: 200-499 mg/dL Very High: >500 mg/dL Performed By: #### L 501.9985, L501.9520, L100.0100, L500.4100, L500.4050 #### [facility] [address] [place], [address] Troponin T.cardiac [Mass/vol ume] in Serum or Plasma by High sensitivity methodOrdered By: Arnol Estrada on 11-27-2024 Troponin T.cardiac High sensitivity method [Mass/Vol] 34 ng/L High <22 [facility] White blood cell (WBC) count Ordered By: Josefa Roberts on 11-27-2024 WBC (Bld) [#/Vol] 3.4 10*3/uL Low 4.4-11.0 [facility] Comment on above: Performed By: #### L 501.9985, L501.9520, L100.0100, L500.4100, L500.4050 #### [facility] [address] [place], [address] 12 Lead EKGon 11-26-2024 12 Lead EKG [facility] [address] [place] [address] 12 Lead EKG 11/26/24 2104 MR#: [id number] Acct: [id number] Name: IVAN SALAS Rep #: [id number] : 1945 79 From: Derick Ellis MD Attending Dr: Dr. Thompson Payne DO Status: A DM MARINO Ordering Dr: Arnol Estrada DO Date: 11/26/24 Location: U Sex: M C Admitted: 11/26/24 Test Reason : STROKE Blood Pressure : */* mmHG Vent. Rate : 69 BPM Atrial Rate : 69 BPM P-R Int : 198 ms QRS Dur : 112 ms QT Int : 420 ms P-R-T Axes : 7 27 89 degrees QTcB Int : 450 ms Sinus rhythm with frequent Premature ventricular complexes Lateral infarct (cited on or before 30-Apr-2012) Abnormal ECG Confirmed by Derick Ellis ([id number]), editorial director BLANKA SERRANO ([id number]) on 11/28/2024 9:35:13 AM Referred By: Confirmed By: Derick Ellis 11/28/24 0935 Date Derick Ellis MD CC: ELEVATING GRADER OPERATOR-C Chi Duran; Dr. Thompson Payne DO; Dr. Arnol Estrada DO Signed Normal [facility] Absolute lymphocyte countOrd ered By: Arnol Estrada on 11-26-2024 Lymphocytes Auto (Unsp spec) [#/Vol] 1.41 10*3/uL 0.83-4.51 [facility] Absolute neutrophil countOrd ered By: Arnol Estrada on 11-26-2024 Neutrophils (Bld) [#/Vol] 4.0 10*3/uL 2.0-7.7 [facility] Activated partial thrombopla stin time (aPTT) in platelet poor plasma by coagulation aOrdered By: Arnol Estrada on 11-26-2024 aPTT Coag (PPP) [Time] 26.8 s 24.1-36.2 [facility] Anion gap in Serum or Plasma Ordered By: Arnol Estrada on 11-26-2024 Anion gap [Moles/Vol] 12 mmol/L 5-15 [facility] Automated lymphocyte count a s percentage of total leukocytesOrdered By: Arnol Estrada on 11-26-2024 Lymphocytes/100 WBC Auto (Unsp spec) 22.9 % - [facility] BUN/creatinine ratioOrdered By: Arnol Estrada on 11-26-2024 Urea nitrogen/Creatinine [Mass ratio] 14.7 mg/mg 10- [facility] Basic Metabolic Profile (BMP )on 11-26-2024 BUN/CRE 14.7 RATIO Normal - [facility] Comment on above: Performed By: #### L 499.0042 #### [facility] [address] [place], [address] Calcium [Mass/Vol] 9.7 mg/dL Normal 7.6-11.0 [facility] Comment on above: Performed By: #### L 499.0042 #### [facility] [address] [place], [address] Chloride [Moles/Vol] 103 mmol/L Normal 98-108 [facility] Comment on above: Performed By: #### L 499.0042 #### [facility] [address] [place], [address] CO2 [Moles/Vol] 23.4 mmol/L Normal 21.0-32.0 [facility] Comment on above: Performed By: #### L 499.0042 #### [facility] [address] [place], [address] Creatinine [Mass/Vol] 2.24 mg/dL High 0.70-1.20 [facility] Comment on above: Performed By: #### L 499.0042 #### [facility] [address] [place], [address] ECRCL 33.36 ml/min Low 50-250 [facility] Comment on above: Performed By: #### L 499.0042 #### [facility] [address] [place], [address] GAP 12 Normal 5-15 [facility] Comment on above: Performed By: #### L 499.0042 #### [facility] [address] [place], [address] GFR/1.73 sq M.predicted among non-blacks MDRD (S/P/Bld) [Vol rate/Area] 29 mL/min/{1.73_m2} Low >60 [facility] Comment on above: Result Comment: mL/m in/1.73m2 CKD-EPI Creatinine Equation (2020) Performed By: #### L 499.0042 #### [facility] [address] [place], [address] Glucose [Mass/Vol] 96 mg/dL Normal 70-99 [facility] Comment on above: Performed By: #### L 499.0042 #### [facility] [address] [place], [address] Potassium [Moles/Vol] 4.1 mmol/L Normal 3.3-5.1 [facility] Comment on above: Performed By: #### L 499.0042 #### [facility] [address] [place], [address] Sodium [Moles/Vol] 138 mmol/L Normal 133-145 [facility] Comment on above: Performed By: #### L 499.0042 #### [facility] [address] [place], [address] Urea nitrogen [Mass/Vol] 33 mg/dL High 4-19 [facility] Comment on above: Performed By: #### L 499.0042 #### [facility] [address] [place], [address] Basophil percentageOrdered B y: Arnol Estrada on 11-26-2024 Basophils/100 WBC (Bld) 0.2 % 0-1 [facility] Bedside Glucoseon 11-26-2024 FINGERSTICK GLU 97 mg/dL Normal 74-106 [facility] Comment on above: Result Comment: RIO CONRAD OF PATIENT CARE PER NURSING PROTOCOL Performed By: #### L 499.0042 #### [facility] [address] [place], [address] CBC W/Diff, Automatedon Absolute Lymph 1.41 X10 3/uL Normal 0.83-4.51 [facility] Comment on above: Performed By: #### L 100.0100, L500.2500, L501.4021, L300.4310, L300.3900 #### [facility] [address] [place], [address] Absolute Neut 4.0 X10 3/uL Normal 2.0-7.7 [facility] Comment on above: Performed By: #### L 100.0100, L500.2500, L501.4021, L300.4310, L300.3900 #### [facility] [address] [place], [address] Basophils/100 WBC (Bld) 0.2 % Normal 0-1 [facility] Comment on above: Performed By: #### L 100.0100, L500.2500, L501.4021, L300.4310, L300.3900 #### [facility] [address] [place], [address] Eosinophils/100 WBC (Bld) 2.4 % Normal 0-5 [facility] Comment on above: Performed By: #### L 100.0100, L500.2500, L501.4021, L300.4310, L300.3900 #### [facility] [address] [place], [address] Erythrocyte distribution width (RBC) [Ratio] 14.2 % Normal 11.6-14.6 [facility] Comment on above: Performed By: #### L 100.0100, L500.2500, L501.4021, L300.4310, L300.3900 #### [facility] [address] [place], [address] Hematocrit (Bld) [Volume fraction] 34.6 % Low 40-54 [facility] Comment on above: Performed By: #### L 100.0100, L500.2500, L501.4021, L300.4310, L300.3900 #### [facility] [address] [place], [address] Hemoglobin (Bld) [Mass/Vol] 12.0 g/dL Low 13.0-16.5 [facility] Comment on above: Performed By: #### L 100.0100, L500.2500, L501.4021, L300.4310, L300.3900 #### [facility] [address] [place], [address] IG% 0.300 Normal 0.0-0.9 [facility] Comment on above: Result Comment: IG% - Immature Granulocytes (promyelocytes, myelocytes and metamyelocytes) > 1% indicates that a LEFT SHIFT is Present. Performed By: #### L 100.0100, L500.2500, L501.4021, L300.4310, L300.3900 #### [facility] [address] [place], [address] Lymphocytes/100 WBC (Bld) 22.9 % Normal 19-41 [facility] Comment on above: Performed By: #### L 100.0100, L500.2500, L501.4021, L300.4310, L300.3900 #### [facility] [address] [place], [address] MCH (RBC) [Entitic mass] 35.0 pg High 27.0-32.0 [facility] Comment on above: Performed By: #### L 100.0100, L500.2500, L501.4021, L300.4310, L300.3900 #### [facility] [address] [place], [address] MCHC (RBC) [Mass/Vol] 34.7 g/dL Normal 32-36 [facility] Comment on above: Performed By: #### L 100.0100, L500.2500, L501.4021, L300.4310, L300.3900 #### [facility] [address] [place], [address] MCV (RBC) [Entitic vol] 100.9 fL High 80-94 [facility] Comment on above: Performed By: #### L 100.0100, L500.2500, L501.4021, L300.4310, L300.3900 #### [facility] [address] [place], [address] Monocytes/100 WBC (Bld) 9.3 % Normal 0-10 [facility] Comment on above: Performed By: #### L 100.0100, L500.2500, L501.4021, L300.4310, L300.3900 #### [facility] [address] [place], [address] Neutrophils/100 WBC (Bld) 64.9 % Normal 47-70 [facility] Comment on above: Performed By: #### L 100.0100, L500.2500, L501.4021, L300.4310, L300.3900 #### [facility] [address] [place], [address] Nucleated RBC (Bld) [#/Vol] 0 10*3/uL Normal 0-5 [facility] Comment on above: Performed By: #### L 100.0100, L500.2500, L501.4021, L300.4310, L300.3900 #### [facility] [address] [place], [address] Platelet mean volume (Bld) [Entitic vol] 8.7 fL Normal 6.2-12.0 [facility] Comment on above: Performed By: #### L 100.0100, L500.2500, L501.4021, L300.4310, L300.3900 #### [facility] [address] [place], [address] Platelets (Bld) [#/Vol] 159 10*3/uL Normal 150-450 [facility] Comment on above: Performed By: #### L 100.0100, L500.2500, L501.4021, L300.4310, L300.3900 #### [facility] [address] [place], [address] RBC (Bld) [#/Vol] 3.43 10*6/uL Low 4.6-6.2 [facility] Comment on above: Performed By: #### L 100.0100, L500.2500, L501.4021, L300.4310, L300.3900 #### [facility] [address] [place], [address] RDW SD 52.6 fl High 35.1-43.9 [facility] Comment on above: Performed By: #### L 100.0100, L500.2500, L501.4021, L300.4310, L300.3900 #### [facility] [address] [place], [address] WBC (Bld) [#/Vol] 6.2 10*3/uL Normal 4.4-11.0 [facility] Comment on above: Performed By: #### L 100.0100, L500.2500, L501.4021, L300.4310, L300.3900 #### [facility] [address] [place], [address] Carbon dioxide, total [Moles /volume] in Central venous bloodOrdered By: Arnol Estrada on 11-26-2024 CO2 [Moles/Vol] 23.4 mmol/L 21.0-32.0 [facility] Chest 1 View (Portable)on Chest 1 View (Portable) [facility] Imaging Services [address] [place] [address] Chest 1 View (Portable) MR#: [id number] Acct: [id number] Name: IVAN SALAS Rep #: [id number] : 1945 M 79 From: Hedy Ding nd, MD PCP: Chi Duran, ELEVATING GRADER OPERATOR-C Status: REG ER Study: Chest 1 View (Portable) Date of Exam: 11/26/24 Exam# [id number] Ordering Dr: Arnol Estrada DO PROCEDURE: CHEST 1 VIEW (PORTABLE) 11/26/2024 REASON FOR EXAM: CVA TECHNIQUE: Frontal view of the chest. COMPARISON: None. FINDINGS: Hardware: Prior median sternotomy and CABG. Heart: The heart size is normal. Lungs: Low lung volumes. No focal consolidation, pleural effusion or pneumothorax. Bones: Degenerative changes are identified within the thoracic spine. RAD/Chest 1 View (Portable) IMPRESSION: No Acute Findings. Reading Location: [id number] CC: ELEVATING GRADER OPERATOR-C Chi Duran; Dr. Arnol Estrada DO Radio Control Crane Operator: Signed Normal [facility] Chloride assayOrdered By: Yumiko Estrada on 11-26-2024 Chloride [Moles/Vol] 103 mmol/L 98-108 [facility] Echo Completeon 11-26-2024 Echo Complete [facility] [address] [place] [place] [address] Echo Complete 11/28/24 0828 MR#: [id number] Acct: [id number] Name: IVAN SALAS Rep #: [id number] : 1945 79 From: Janee Chicas MD Attending Dr: Dr. Thompson Payne, DO Status: A DM MARINO Ordering Dr: Josefa Roberts MD Date: 11/26/24 Location: [facility] Sex: M C Admitted: 11/26/24 Reason For Study Reason For Study: TIA/CVA Procedure This was a 2D Doppler, Color Flow transthoracic echocardiogram. The study was technically difficult. Exam performed portable in patient room. Left Ventricle Normal size and thickness. The LV systolic function is normal. EF is 65 %. Normal diastology for age. Right Ventricle Normal right ventricle. Atria The left atrium is severely enlarged. Normal right atrium. Mitral Valve Mild mitral annular calcification. Trivial mitral valve insufficiency. Tricuspid Valve Trivial tricuspid valve insufficiency. Unable to estimate RV systolic pressure due to insufficient tricuspid regurgitant envelope. Aortic Valve Bioprosthetic aortic valve appears functioning normally. Mean peak gradient 11 mmHg. Pulmonic Valve The pulmonic valve is not well visualized. Great Vessels Normal sized aortic root. Pericardium/Pleural No pericardial effusion. MMode/2D Measurements Calculations LVIDd: 3.8 cm IVSd: 0.98 cm LVOT diam: 2.0 cm LVIDs: 2.6 cm LVPWd: 0.90 cm LVOT area: 3.0 cm2 RVDd: 3.5 cm FS: 31.7 % LA dimension: 4.9 cm asc Aorta Diam: 3.4 cm LAV(MOD-bp): 53.5 ml LAV(MOD-bp) Indexed: 24.3 ml/m2 LAV(MOD-sp2): 56.9 ml LAV(MOD-sp4): 41.7 ml SV(MOD-sp4): 47.9 ml LVAd ap4: 29.9 cm2 LVAd ap2: 28.4 cm2 LVLd ap4: 8.7 cm LVLd ap2: 8.6 cm SI(MOD-sp4): 21.7 ml/m2 EDV(MOD-sp4): 84.1 ml EDV(MOD-sp2): 78.4 ml EDV(sp4-el): 87.2 ml EDV(sp2-el): 79.7 ml LVAs ap4: 17.8 cm2 LVAs ap2: 11.8 cm2 LVLs ap4: 7.7 cm LVLs ap2: 6.6 cm ESV(MOD-sp4): 36.2 ml ESV(MOD-sp2): 20.9 ml ESV(sp4-el): 34.9 ml ESV(sp2-el): 18.1 ml EF(MOD-sp4): 56.9 % EF(MOD-sp2): 73.4 % EF(sp4-el): 60.0 % SV(MOD-sp2): 57.5 ml SV(sp4-el): 52.3 ml Ao sinus diam: 3.6 cm SI(MOD-sp2): 26.1 ml/m2 LA dimension(2D): 4.5 cm LA A4 area: 16.6 cm2 RA A4 area: 12.6 cm2 TAPSE: 1.1 cm Time Measurements MV dec time: 0.30 sec Doppler Measurements Calculations MV E max jace: 70.7 cm/sec Lat Peak E' Jace: 8.5 cm/sec Med Peak E' Jace: 7.7 cm/sec MV A max jace: 86.0 cm/sec E/E' lat: 8.4 E/E' med: 9.2 MV E/A: 0.82 MV dec slope: 238.3 cm/sec2 Ao V2 max: 225.0 cm/sec LV V1 max: 154.9 cm/sec Ao max P.3 mmHg LV V1 max P.6 mmHg Ao V2 mean: 160.0 cm/sec LV V1 mean P.6 mmHg Ao mean P.4 mmHg LV V1 mean: 124.5 cm/sec Ao V2 VTI: 48.3 cm LV V1 VTI: 35.5 cm AV (velocity ratio): 0.74 EL(I,D): 2.2 cm2 EL(V,D): 2.1 cm2 SV(LVOT): 107.4 ml PA V2 max: 98.3 cm/sec ECHO/Echo Complete Interpretation Summary The LV systolic function is normal. EF is 65 %. The left atrium is severely enlarged. Bioprosthetic aortic valve appears functioning normally. Mean peak gradient 11 mmHg. Ordering Physician: Josefa Roberts Performed By: Ximena Williamson RDCS 11/28/24 1241 Date Janee Chicas MD CC: ELEVATING GRADER OPERATOR-C Chi Duran; Dr. Josefa Roberts MD; Dr. Thompson Payne DO Date Dictated: 11/28/24827 Date Transcribed: 11/28/24 124 Radio Control Crane Operator: Signed Nany [facility] Emergency Department Summary on 11-26-2024 Emergency Department Summary [facility] Medical Records Department [address] [place] [address] Emergency Department Summary 11/26/24 MR#: [id number] Acct: [id number] Name: IVAN SALAS Rep #: [id number] : 1945 79 From: Arnol Estrada DO PCP: ISABELL Bush Status:ADM MARINO Location: [place] [address] HPI History of Present Illness Chief Complaint: [facility]roke [facility] Medical History (Updated 11/26/24 @ 22:[address] Josefa Roberts MD) CKD (chronic kidney disease) BPH (benign prostatic hyperplasia) Chronic anemia HLD (hyperlipidemia) HTN (hypertension) Valvular heart disease CAD (coronary artery disease) Home Medications ???Medication ???Instructions ???Recorded ???Last Taken ???Type aspirin 81 mg capsule 81 mg PO DAILY 11/26/24 Unknown Hi story cholecalciferol (vitamin D3) 25 1,000 unit PO QDAY 11/26/24 Unknow n History mcg (1,000 unit) capsule (Vitamin D3) finasteride 5 mg tablet 5 mg PO DAILY 11/26/24 Unknown His tory metoprolol succinate 25 mg 12.5 mg PO DAILY 11/26/24 Unknown History tablet,extended release 24 hr rosuvastatin 40 mg tablet 40 mg PO DAILY 11/26/24 Unknown Hi story tamsulosin 0.4 mg capsule 0.4 mg PO DAILY 11/26/24 Unknown H istory Allergy/AdvReac Type Severity Reaction Status Date / Time No Known Allergies Allergy Verified 11/26/24 20:48 Family History (Updated 11/26/24 @ 22:[address] Josefa Roberts MD) Mother , while attempting CABG x 4. CAD (coronary artery disease) Hypertension Heart disease Myocardial infarction Other Prostate cancer Surgical History (Updated 11/26/24 @ 21:[address] Josefa Roberts MD) History of tonsillectomy and adenoidectomy Hx of aortic valve replacement Hx of bilateral hip replacements History of bilateral knee replacement Hx of coronary artery bypass surgery Social History household members: spouse Smoking Status: Never smoker alcohol intake: never substance use type: does not use EXAM Physical Exam Const Vital Signs: 11/26/24 20:49 Pulse Rate 72 Respiratory Rate 16 Blood Pressure 144/70 H Blood Pressure Mean 94 Pulse Ox 94 Oxygen Delivery Method Room Air MDM MDM MDM Narrative Medical decision making narrative: HISTORY OF PRESENT ILLNESS: Chief complaint: Code stroke 79-year-old male presents with concern for acute stroke. Notes at 8:30 PM on 11/26/2024 he started experiencing left arm weakness. Denies chest pain. Denies falls. Has blood thinners. REVIEW OF SYSTEMS: Pertinent positives: Left arm weakness Pertinent negatives: Chest pain, headache PHYSICAL EXAM: Nursing triage notes reviewed, Vital signs reviewed Constitutional: please see mdm HENT: MMM Eyes: Pupils equal round and reactive to light, Extraocular muscles intact Neck: No stridor, no JVD, full neck ROM Lungs: Clear to auscultation, No wheezing or rales. No increased work of breathing, no conversational dyspnea, no accessory muscle use, no nasal flaring. No respiratory distress noted Heart: Regular rate and rhythm, No murmurs, No rubs and No gallops, 2+ distal pulses (radial, femoral, posterior tibial) in all extremities Abdomen: Soft, there is no tenderness, rigidity, rebound or guarding, no obvious peritoneal signs, no palpable pulsatile abdominal masses, no auscultated abdominal bruit : No CVAT Extremities: No edema Neuro: Alert, oriented x 3, no speech issues, no aphasia, no cranial nerve deficits, noted slight weakness left upper extremity in a ataxia left upper extremity otherwise no other focal neurologic deficits. NIH of 2 Skin: No rash or lesions noted MEDICAL DECISION MAKING: Chief Complaint: please see HPI External records reviewed: Reviewed prior imaging Factors affecting care: CAD, hypertension, hyperlipidemia, valvular heart disease, chronic anemia BPH Social determinants of health: none History obtained from others: Family Consults: Stroke neurology, stroke radiology, internal medicine [facility] Narrative: Patient was initially hemodynamically stable, afebrile nontoxic-appearing. He had left upper extremity weakness, initial NIH of 2 for left upper extremity weakness and ataxia I considered the following differential diagnosis: CVA, TIA, ICH, Kei's paralysis, focal seizure Given patient was in the 4 0.5 hour TNK window was taken immediately to CT scan per stroke protocol Noncon was verbally read by radiologist as negative. Shared decision-making discussion was undertaken between Dr. Mills (the stroke neurology), myself, patient and daughter and we jointly decided to forego TNK at this time given low NIH, lack of debilitating symptom and due to symptoms improving. Dr. Mills further recommended loading the patient with Aspirin and Plavix. He also recommende (more content not included)... Normal [facility] Eosinophil percentageOrdered By: Arnol Estrada on 11-26-2024 Eosinophils/100 WBC (Bld) 2.4 % 0-5 [facility] Erythrocyte distribution wid th ratioOrdered By: Arnol Estrada on 11-26-2024 Erythrocyte distribution width (RBC) [Ratio] 14.2 % 11.6-14.6 [facility] Erythrocyte distribution wid th standard deviationOrdered By: Arnol Estrada on 11-26-2024 Erythrocyte distribution width (RBC) [Ratio] 52.6 fl High 35.1-43.9 [facility] Glomerular filtration rate ( GFR) estimation/1.73 sq m using serum, plasma, or whole bOrdered By: Arnol Estrada on 11-26-2024 GFR/1.73 sq M.predicted among non-blacks MDRD (S/P/Bld) [Vol rate/Area] 29 mL/min/{1.73_m2} Low >60 [facility] Comment on above: mL/min/1.73m2 CKD-EP I Creatinine Equation (2020) Glucose measurement at [facility] deOrdered By: Arnol Estrada on 11-26-2024 Glucose [Mass/Vol] 97 mg/dL 74-106 [facility] Comment on above: MANAGEMENT OF PATIEN T CARE PER NURSING PROTOCOL H AND P Exam - Hospitaliston 11-26-2024 H&P Exam - Hospitalist [facility] Medical Records Department [address] [place] [address] H P Exam - Hospitalist 11/26/242148 MR#: [id number] Acct: [id number] Name: IVAN SALAS Rep #: [id number] : 1945 79 From: Josefa Roberts MD PCP: Chi Duran ELEVATING GRADER OPERATORHawaC Status:ADM MARINO Location: [place] [address] HPI - General General Date of Admission: 11/26/24 Date of Service: 11/26/24 Chief Complaint: LUE weakness. HPI Narrative The patient is a 79 y/o M w/ PMHx: CKD, Chronic macrocytic anemia, Valvular heart disease, CAD s/p CABG x 5 remotely 2010 at [place], HTN, HLD, OA, BPH with obstructive pathology who presents to the [facility] ED on 11/26/24 with history of onset at approximately 8:30 PM on day of presentation left upper extremity weakness prompting immediate transition to the ED for evaluation. Initial ED physician NIH stroke scale assessment 2 for left upper extremity ataxia and mild weakness. Family and patient do report that he has been having for the last several weeks episodes of lightheadedness and has frequently checked his blood pressure when this is occurred and noted that it has been low. He recently decreased his metoprolol and 3 days prior to current presentation stopped his ramipril and has had some improvement. He does have a follow-up with ENT as he was not sure why he was having this. Workup in the ED included T97.2, heart rate 75, BP 144/70, respiratory rate 18, 95% on room air, CBC with WBC 6.2, hemoglobin 12, MCV 100.9, platelet 159 without marked shift, unremarkable coags, BMP with BUN/creat 33/2.24, GFR 29 otherwise not marked appearing, troponin 35, CT of the brain with no acute intracranial findings, CTA head and neck no large vessel occlusion, aneurysm or AVM with mild scattered calcific plaque, chest x-ray with no acute cardiopulmonary findings, EKG with sinus rhythm with PVC with no acute evidence of ischemia. Stroke alert was initiated and recommendation to forego TNK given decreased NIH stroke scale low score however neurologist did recommend loading patient with aspirin and Plavix with admission for further CVA/TIA evaluation. Per Neurologist repeat NIHSS patient improved to 0. In the ED per neurology recommendations noted patient administered full-strength aspirin therapy and Plavix 70 mg p.o. x 1. [facility] Medical History CKD (chronic kidney disease) BPH (benign prostatic hyperplasia) Chronic anemia HLD (hyperlipidemia) HTN (hypertension) Valvular heart disease CAD (coronary artery disease) Home Medications ???Medication ???Instructions ???Recorded ???Last Taken ???Type aspirin 81 mg capsule 81 mg PO DAILY 11/26/24 Unknown Hi story cholecalciferol (vitamin D3) 25 1,000 unit PO QDAY 11/26/24 Unknow n History mcg (1,000 unit) capsule (Vitamin D3) finasteride 5 mg tablet 5 mg PO DAILY 11/26/24 Unknown His tory metoprolol succinate 25 mg 12.5 mg PO DAILY 11/26/24 Unknown History tablet,extended release 24 hr rosuvastatin 40 mg tablet 40 mg PO DAILY 11/26/24 Unknown Hi story tamsulosin 0.4 mg capsule 0.4 mg PO DAILY 11/26/24 Unknown H istory Allergy/AdvReac Type Severity Reaction Status Date / Time No Known Allergies Allergy Verified 11/26/24 20:48 Family History Mother , while attempting CABG x 4. CAD (coronary artery disease) Hypertension Heart disease Myocardial infarction Other Prostate cancer Surgical History History of tonsillectomy and adenoidectomy Hx of aortic valve replacement Hx of bilateral hip replacements History of bilateral knee replacement Hx of coronary artery bypass surgery Social History household members: spouse Smoking Status: Never smoker alcohol intake: never substance use type: does not use ROS ROS Narrative Admission Review of Systems: CONSTITUTIONAL: No weight loss, fever, chills, + weakness or fatigue. HEENT: + Lightheadedness, near syncope. Eyes: No visual loss, blurred vision, double vision or yellow sclerae. Ears, Nose, Throat: No hearing loss, sneezing, congestion, runny nose or sore throat. SKIN: No rash or itching, lesions, wounds. CARDIOVASCULAR: + Lightheadedness, near syncope. No chest pain, chest pressure or chest discomfort, palpitations, edema, orthopnea. RESPIRATORY: No shortness of breath, cough or sputum, wheezing, hemoptysis. GASTROINTESTINAL: No anorexia, nausea, vomiting or diarrhea, abdominal pain, melena, BRBPR. GENITOURINARY: No dysuria, frequency, urgency or retention. NEUROLOGICAL: + Left upper extremity weakness, lightheadedness/near syncope. No headache, paralysis, change in bowel or bladder control, seizure. MUSCULO (more content not included)... Normal [facility] Hematocrit Auto (Bld) [Volum e fraction]Ordered By: Arnol Estrada on 11-26-2024 Hematocrit (Bld) [Volume fraction] 34.6 % Low 40-54 [facility] Hemoglobin measurementOrdere d By: Arnol Estrada on 11-26-2024 Hemoglobin (Bld) [Mass/Vol] 12.0 g/dL Low 13.0-16.5 [facility] Immature granulocytes/100 WB C Auto (Bld)Ordered By: Arnol Estrada on 11-26-2024 Immature granulocytes/100 WBC (Bld) 0.300 % 0.0-0.9 [facility] Comment on above: IG% - Immature Granu locytes (promyelocytes, myelocytes and metamyelocytes) > 1% indicates that a LEFT SHIFT is Present. International normalized rat io (INR) calculationOrdered By: Arnol Estrada on 11-26-2024 INR Coag (Bld) [Relative time] 1.0 {INR} [facility] L501.4021on 11-26-2024 Trop T High Sen 35 ng/L High <=22 [facility] Comment on above: Performed By: #### L 499.0042 #### [facility] [address] [place], [place], [address] MCV (mean corpuscular volume ) determinationOrdered By: Arnol Estrada on 11-26-2024 MCV (RBC) [Entitic vol] 100.9 fL High 80-94 [facility] Magnesiumon 11-26-2024 Magnesium [Mass/Vol] 2.4 mg/dL High 1.5-2.2 [facility] Comment on above: Order Comment: Comme nts: may add to ED labs Performed By: #### L 499.0042 #### [facility] [address] [place], [place], [id number] Magnesium measurement (mass/ volume)Ordered By: Josefa Roberts on 11-26-2024 Magnesium (Unsp spec) [Mass/Vol] 2.4 mg/dL High 1.5-2.2 [facility] Mean corpuscular hemoglobin (MCH) determinationOrdered By: Arnol Estrada on 11-26-2024 MCH (RBC) [Entitic mass] 35.0 pg High 27.0-32.0 [facility] Mean corpuscular hemoglobin concentration (MCHC) determinationOrdered By: Arnol Estrada on 11-26-2024 MCHC (RBC) [Mass/Vol] 34.7 g/dL 32-36 [facility] Mean platelet volume determi nationOrdered By: Arnol Estrada on 11-26-2024 Platelet mean volume (Bld) [Entitic vol] 8.7 fL 6.2-12.0 [facility] Monocyte percentageOrdered B y: Arnol Estrada on 11-26-2024 Monocytes/100 WBC (Bld) 9.3 % 0-10 [facility] Neutrophil percentageOrdered By: Arnol Estrada on 11-26-2024 Neutrophils/100 WBC (Bld) 64.9 % 47-70 [facility] Nucleated red blood cell per centageOrdered By: Arnol Estrada on 11-26-2024 Nucleated RBC/100 WBC (Bld) [Ratio] 0 % 0-5 [facility] Partial Thromboplast Timeon 11-26-2024 aPTT Coag (Bld) [Time] 26.8 s Normal 24.1-36.2 [facility] Comment on above: Performed By: #### L 100.0100, L500.2500, L501.4021, L300.4310, L300.3900 #### [facility] [address] [place], [address] Platelet countOrdered By: Yumiko Estrada on 11-26-2024 Platelets (Bld) [#/Vol] 159 10*3/uL 150-450 [facility] Potassium measurement (mass/ volume)Ordered By: Arnol Estrada on 11-26-2024 Potassium (Unsp spec) [Mass/Vol] 4.1 mmol/L 3.3-5.1 [facility] Prothrombin Time w/INRon INR Coag (PPP) [Relative time] 1.0 {INR} Normal [facility] Comment on above: Performed By: #### L 100.0100, L500.2500, L501.4021, L300.4310, L300.3900 #### [facility] [address] [place], [address] PT Coag (PPP) [Time] 13.8 s Normal 11.7-14.9 [facility] Comment on above: Performed By: #### L 100.0100, L500.2500, L501.4021, L300.4310, L300.3900 #### [facility] [address] [place], [address] Prothrombin timeOrdered By: Arnol Estrada on 11-26-2024 PT Coag (PPP) [Time] 13.8 s 11.7-14.9 [facility] RBC Auto (Bld) [#/Vol]Ordere d By: Arnol Estrada on 11-26-2024 RBC (Bld) [#/Vol] 3.43 10*6/uL Low 4.6-6.2 [facility] STROKE Brain/Head without Co nton 11-26-2024 STROKE Brain/Head without Cont [facility] Imaging Services [address] [place], [place] [address] STROKE Brain/Head without Cont MR#: [id number] Acct: [id number] Name: IVAN SALAS Rep #: [id number] : 1945 M 79 From: Hedy Ding nd, MD PCP: Chi Duran, ELEVATING GRADER OPERATOR-C Status: REG ER Study: STROKE Brain/Head without Cont Date of Exam: 0 11/26/24 Exam# [id number] Ordering Dr: Arnol Estrada DO EXAM: STROKE BRAIN/HEAD WITHOUT CONT CLINICAL HISTORY: 79 y/o M with NEURO DEFICIT, ACUTE, STROKE SUSPECTED. Left arm weakness. COMPARISON: None. TECHNIQUE: Routine CT imaging of the head without IV contrast. Additional multiplanar reformats were obtained. Dose reduction techniques were used including intermediate exposure control (AEC),iterative reconstruction technique, and/or mA and/or KV dose adjustments based on patient's size. FINDINGS: Mild generalized cerebral volume loss with concordant prominence of the ventricles and subarachnoid spaces. Small, chronic ischemic infarct within the right posterior parieto-occipital watershed area. Mild patchy supratentorial white matter hypodensities. The gotti-white matter interfaces are otherwise maintained. No acute intracranial hemorrhage or herniation. Prior ocular lens replacements. The visualized paranasal sinuses and mastoids are unremarkable. No calvarial fracture or scalp hematoma. CT/STROKE Brain/Head without Cont IMPRESSION: No acute intracranial finding. Reading Location: [facility] CC: ELEVATING GRADER OPERATOR-C Chi Duran; Dr. Arnol Estrada DO Radio Control Crane Operator: Signed Normal [facility] STROKE CTA Head AND Neck W/C onon 11-26-2024 STROKE CTA Head AND Neck W/Con [facility] Imaging Services [address], [place] [address] STROKE CTA Head AND Neck W/Con MR#: [id number] Acct: [id number] Name: IVAN SALAS Rep #: [id number] : 1945 M 79 From: Hedy Ding nd, MD PCP: ISABELL Bush Status: REG ER Study: STROKE CTA Head AND Neck W/Con Date of Exam: 0 11/26/24 Exam# [id number] Ordering Dr: Arnol Estrada DO PROCEDURE: STROKE CTA HEAD AND NECK W/CON 11/26/2024 REASON FOR EXAM: NEURO DEFICIT, ACUTE, STROKE SUSPECTED TECHNIQUE: CTA imaging of the head and neck from the aortic arch to the skull vertex with intravenous contrast. Coronal and Sagittal reconstruction series were provided. 3D, 3D post processing, 3D reconstructions, Maximum intensity projection (MIPs) Volume rendering and Shaded surface rendering was provided. CONTRAST: Isovue 370 VOLUME: 100mL One or more dose reduction techniques were used (e.g., Automated exposure control, adjustment of the mA and/or kV according to patient size, use of iterative reconstruction technique). RADIATION DOSE SUMMARY: CTDlvol: 40 mGy DLP: 710 mGycm COMPARISON: Same-day CT head FINDINGS: See same day CT head for discussion of nonvascular findings. CTA neck: Two-vessel aortic arch. Mild plaque of the aortic arch vessels and origins of the bilateral vertebral arteries without focal stenosis or narrowing. Calcific plaque of the V1 and V2 segments of the right vertebral artery without significant stenosis. The left vertebral artery is widely patent. Calcific plaque of the bilateral cervical carotid arteries without hemodynamically significant narrowing by NASCET criteria. CTA head: Calcific plaque of the bilateral carotid siphons without focal stenosis. The bilateral anterior, middle and posterior cerebral arteries are widely patent. No aneurysm or AVM. Major venous structures: Unremarkable. Other findings: Cervical spondylosis. Prior median sternotomy. CT/STROKE CTA Head AND Neck W/Con IMPRESSION: 1. No large vessel occlusion, aneurysm or AVM. 2. Mild scattered calcific plaque as described. Dr. Diaz discussed these findings via telephone with Dr. Estrada at 9:30 p.m. on 11/26/2024. Reading Location: [id number] CC: ISABELL Duran; Dr. Arnol Estrada DO Radio Control Crane Operator: Signed Normal [facility] Serum creatinine measurement (mass/volume)Ordered By: Arnol Estrdaa on 11-26-2024 Creatinine [Mass/Vol] 2.24 mg/dL High 0.70-1.20 [facility] Serum glucose measurement (m ass/volume)Ordered By: Arnol Estrada on 11-26-2024 Glucose [Mass/Vol] 96 mg/dL 70-99 [facility] Serum or plasma calcium natalie urement (mass/volume)Ordered By: Arnol Estrada on 11-26-2024 Calcium [Mass/Vol] 9.7 mg/dL 7.6-11.0 [facility] Serum or plasma urea nitroge n measurement (mass/volume)Ordered By: Arnol Estrada on 11-26-2024 Urea nitrogen [Mass/Vol] 33 mg/dL High 4-19 [facility] Sodium levelOrdered By: Angelica Estrada on 11-26-2024 Sodium [Moles/Vol] 138 mmol/L 133-145 [facility] Troponin T.cardiac [Mass/vol ume] in Serum or Plasma by High sensitivity methodOrdered By: Arnol Estrada on 11-26-2024 Troponin T.cardiac High sensitivity method [Mass/Vol] 34 ng/L High <22 [facility] Troponin T.cardiac High sensitivity method [Mass/Vol] 35 ng/L High <22 [facility] White blood cell (WBC) count Ordered By: Arnol Estrada on 11-26-2024 WBC (Bld) [#/Vol] 6.2 10*3/uL 4.4-11.0 [facility] .Auto Diffon 11-07-2024 Basophil, Absolute 0.0 10 3/mcL Normal 0.0-0.3 [facility] Comment on above: Performed By: #### A 1C, CBC, CMP, ADIFF, GFR, ANEU, LIPID, VIDH, [id number] #### [address] [address] #### PTH #### [address] [address] Basophils/100 WBC (Bld) 0.4 % Normal 0.0-2.5 [facility] Comment on above: Performed By: #### A 1C, CBC, CMP, ADIFF, GFR, ANEU, LIPID, VIDH, [id number] #### [address] [address] #### PTH #### [address] [address] Eosinophil, Absolute 0.1 10 3/mcL Normal 0.0-0.7 [facility] Comment on above: Performed By: #### A 1C, CBC, CMP, ADIFF, GFR, ANEU, LIPID, VIDH, [id number] #### [address] [address] #### PTH #### [address] [address] Eosinophils/100 WBC (Bld) 3.7 % Normal 0.0-6.0 [facility] Comment on above: Performed By: #### A 1C, CBC, CMP, ADIFF, GFR, ANEU, LIPID, VIDH, [id number] #### [address] [address] #### PTH #### [address] [address] Lymphocyte, Absolute 0.7 10 3/mcL Low 0.9-4.3 [facility] Comment on above: Performed By: #### A 1C, CBC, CMP, ADIFF, GFR, ANEU, LIPID, VIDH, [id number] #### [address] [address] #### PTH #### [address] [address] Lymphocytes/100 WBC (Bld) 20.8 % Normal 20.0-40.0 [facility] Comment on above: Performed By: #### A 1C, CBC, CMP, ADIFF, GFR, ANEU, LIPID, VIDH, [id number] #### [address] [address] #### PTH #### [address] [address] Monocyte, Absolute 0.3 10 3/mcL Normal 0.1-1.4 [facility] Comment on above: Performed By: #### A 1C, CBC, CMP, ADIFF, GFR, ANEU, LIPID, VIDH, [id number] #### [address] [address] #### PTH #### [address] [address] Monocytes/100 WBC (Bld) 8.9 % Normal 2.0-13.0 [facility] Comment on above: Performed By: #### A 1C, CBC, CMP, ADIFF, GFR, ANEU, LIPID, VIDH, [id number] #### [address] [address] #### PTH #### [address] [address] Neutrophils/100 WBC (Bld) 66.2 % Normal 50.0-75.0 [facility] Comment on above: Performed By: #### A 1C, CBC, CMP, ADIFF, GFR, ANEU, LIPID, VIDH, [id number] #### [address] [address] #### PTH #### [address] [address] .GFRon 11-07-2024 Estimated Glomerular Filtration Rate 34 ml/min/1.73sqm Normal [facility] Comment on above: Result Comment: Stages of [...] the eGFR results. Performed By: #### A 1C, CBC, CMP, ADIFF, GFR, ANEU, LIPID, VIDH, [id number] #### [address] [address] #### PTH #### [address] [address] .NEUABSon 11-07-2024 Neutrophil, Absolute 2.3 10 3/mcL Normal 2.3-8.1 [facility] Comment on above: Performed By: #### A 1C, CBC, CMP, ADIFF, GFR, ANEU, LIPID, VIDH, [id number] #### [address] [address] #### PTH #### [id number] [place] [address] 11-07-2024 Erythrocyte distribution width (RBC) [Ratio] 14.0 % Normal 11.5-15.5 [facility] Comment on above: Performed By: #### A 1C, CBC, CMP, ADIFF, GFR, ANEU, LIPID, VIDH, [id number] #### [address] [address] #### PTH #### [place] [address] Hematocrit (Bld) [Volume fraction] 33.5 % Low 40.0-52.0 [facility] Comment on above: Performed By: #### A 1C, CBC, CMP, ADIFF, GFR, ANEU, LIPID, VIDH, [id number] #### [address] [address] #### PTH #### [place] [address] Hgb 11.6 G/dL Low 13.0-17.5 [facility] Comment on above: Performed By: #### A 1C, CBC, CMP, ADIFF, GFR, ANEU, LIPID, VIDH, [id number] #### [place] [address] #### PTH #### [place] [address] MCH (RBC) [Entitic mass] 34.6 pg High 27.0-33.0 [facility] Comment on above: Performed By: #### A 1C, CBC, CMP, ADIFF, GFR, ANEU, LIPID, VIDH, [id number] #### [place] [address] #### PTH #### [place] [address] MCHC 34.6 G/dL Normal 32.0-36.0 [facility] Comment on above: Performed By: #### A 1C, CBC, CMP, ADIFF, GFR, ANEU, LIPID, VIDH, [id number] #### [place] [address] #### PTH #### [place] [address] MCV (RBC) [Entitic vol] 99.8 fL Normal 81.0-100.0 [facility] Comment on above: Performed By: #### A 1C, CBC, CMP, ADIFF, GFR, ANEU, LIPID, VIDH, [id number] #### [place] [address] #### PTH #### [place] [address] Platelet 178 10 3/mcL Normal 150-450 [facility] Comment on above: Performed By: #### A 1C, CBC, CMP, ADIFF, GFR, ANEU, LIPID, VIDH, [id number] #### [address] [address] #### PTH #### [address] [address] Platelet mean volume (Bld) [Entitic vol] 6.4 fL Normal 6.4-10.5 [facility] Comment on above: Performed By: #### A 1C, CBC, CMP, ADIFF, GFR, ANEU, LIPID, VIDH, [id number] #### [address] [address] #### PTH #### [place] [address] RBC 3.35 10 6/mcL Low 4.50-6.00 [facility] Comment on above: Performed By: #### A 1C, CBC, CMP, ADIFF, GFR, ANEU, LIPID, VIDH, [id number] #### [address] [address] #### PTH #### [place] [address] WBC 3.4 10 3/mcL Low 4.5-10.8 [facility] Comment on above: Performed By: #### A 1C, CBC, CMP, ADIFF, GFR, ANEU, LIPID, VIDH, [id number] #### [address] [address] #### PTH #### [place] [address] CMPon 11-07-2024 Albumin Level 3.4 G/dL Normal 3.4-4.8 [facility] Comment on above: Performed By: #### A 1C, CBC, CMP, ADIFF, GFR, ANEU, LIPID, VIDH, [id number] #### [address] [address] #### PTH #### [place] [address] Albumin/Globulin [Mass ratio] 1.1 {ratio} Normal 1.1-2.5 [facility] Comment on above: Performed By: #### A 1C, CBC, CMP, ADIFF, GFR, ANEU, LIPID, VIDH, [id number] #### [address] [address] #### PTH #### [address] [address] ALP [Catalytic activity/Vol] 107 U/L Normal 40-135 [facility] Comment on above: Performed By: #### A 1C, CBC, CMP, ADIFF, GFR, ANEU, LIPID, VIDH, [id number] #### [address] [address] #### PTH #### [address] [address] ALT [Catalytic activity/Vol] 27 U/L Normal 16-63 [facility] Comment on above: Performed By: #### A 1C, CBC, CMP, ADIFF, GFR, ANEU, LIPID, VIDH, [id number] #### [place] [address] #### PTH #### [place] [address] AST [Catalytic activity/Vol] 14 U/L Normal 10-40 [facility] Comment on above: Performed By: #### A 1C, CBC, CMP, ADIFF, GFR, ANEU, LIPID, VIDH, [id number] #### [address] [address] #### PTH #### [place] [id number] Bili Total 0.6 mg/dL Normal 0.2-1.0 [facility] Comment on above: Result Comment: Use of this assay is not recommended for patients undergoing treatment with eltrombopag due to the potential for falsely elevated results. Performed By: #### A 1C, CBC, CMP, ADIFF, GFR, ANEU, LIPID, VIDH, [id number] #### [address] [address] #### PTH #### [place] [address] BUN/Creatinine Ratio 14 ratio Normal 7-27 [facility] Comment on above: Performed By: #### A 1C, CBC, CMP, ADIFF, GFR, ANEU, LIPID, VIDH, [id number] #### [address] [address] #### PTH #### [address] [address] Calcium [Mass/Vol] 9.2 mg/dL Normal 8.4-10.2 [facility] Comment on above: Performed By: #### A 1C, CBC, CMP, ADIFF, GFR, ANEU, LIPID, VIDH, [id number] #### [address] [address] #### PTH #### [address] [address] Chloride [Moles/Vol] 107 mmol/L Normal 98-107 [facility] Comment on above: Performed By: #### A 1C, CBC, CMP, ADIFF, GFR, ANEU, LIPID, VIDH, [id number] #### [address] [address] #### PTH #### [address] [address] CO2 [Moles/Vol] 28 mmol/L Normal 23-31 [facility] Comment on above: Performed By: #### A 1C, CBC, CMP, ADIFF, GFR, ANEU, LIPID, VIDH, [id number] #### [address] [address] #### PTH #### [address] [address] Creatinine [Mass/Vol] 2.00 mg/dL High 0.67-1.17 [facility] Comment on above: Performed By: #### A 1C, CBC, CMP, ADIFF, GFR, ANEU, LIPID, VIDH, [id number] #### [address] [address] #### PTH #### [address] [address] Electrolyte Balance 4.0 mEq/L Normal 4.0-15.0 [facility] Comment on above: Performed By: #### A 1C, CBC, CMP, ADIFF, GFR, ANEU, LIPID, VIDH, [id number] #### [address] [address] #### PTH #### [address] [address] Globulin 3.2 G/dL Normal 2.7-4.4 [facility] Comment on above: Performed By: #### A 1C, CBC, CMP, ADIFF, GFR, ANEU, LIPID, VIDH, [id number] #### [address] [address] #### PTH #### [address] [address] Glucose [Mass/Vol] 102 mg/dL Normal 83-110 [facility] Comment on above: Performed By: #### A 1C, CBC, CMP, ADIFF, GFR, ANEU, LIPID, VIDH, [id number] #### [address] [address] #### PTH #### [address] [address] Potassium [Moles/Vol] 4.3 mmol/L Normal 3.5-5.1 [facility] Comment on above: Performed By: #### A 1C, CBC, CMP, ADIFF, GFR, ANEU, LIPID, VIDH, [id number] #### [address] [address] #### PTH #### [address] [address] Sodium [Moles/Vol] 139 mmol/L Normal 136-145 [facility] Comment on above: Performed By: #### A 1C, CBC, CMP, ADIFF, GFR, ANEU, LIPID, VIDH, [id number] #### [address] [address] #### PTH #### [address] [address] Total Protein 6.6 G/dL Normal 6.4-8.2 [facility] Comment on above: Performed By: #### A 1C, CBC, CMP, ADIFF, GFR, ANEU, LIPID, VIDH, [id number] #### [address] [address] #### PTH #### [address] [address] Urea nitrogen [Mass/Vol] 28 mg/dL High 7-18 [facility] Comment on above: Performed By: #### A 1C, CBC, CMP, ADIFF, GFR, ANEU, LIPID, VIDH, [id number] #### [address] [address] #### PTH #### [place] [id number] FEon 11-07-2024 Iron [Mass/Vol] 116 ug/dL Normal 65-175 [facility] Comment on above: Performed By: #### A 1C, CBC, CMP, ADIFF, GFR, ANEU, LIPID, VIDH, [id number] #### [address] [address] #### PTH #### [place] [address] [place] 11-07-2024 Ferritin [Mass/Vol] 463.0 ng/mL High 26.0-388.0 [facility] Comment on above: Performed By: #### A 1C, CBC, CMP, ADIFF, GFR, ANEU, LIPID, VIDH, [id number] #### [address] [address] #### PTH #### [place] [address] IBCon 11-07-2024 TIBC 233 mcg/dL Low 250-450 [facility] Comment on above: Performed By: #### A 1C, CBC, CMP, ADIFF, GFR, ANEU, LIPID, VIDH, [id number] #### [address] [address] #### PTH #### [place] [address] [place] [address] LABORATORYOrdered By: SYSTEM SYSTEM on 11-07-2024 Albumin [...] Ferritin [Mass/Vol] 463.0 ng/mL High 26.0 - 388.0 ng/mL AO ADM SS Globulin 3.2 G/dL [...] 11-07-2024 Magnesium [Mass/Vol] 1.8 mg/dL Normal 1.8-2.4 [facility] Comment on above: Performed By: #### A 1C, CBC, CMP, ADIFF, GFR, ANEU, LIPID, VIDH, [id number] #### [facility] [address] [place], [place] [address] #### PTH #### [facility] [address] [place] [address] PHOSon 11-07-2024 Phosphate [Mass/Vol] 2.7 mg/dL Normal 2.3-4.1 [facility] Comment on above: Performed By: #### A 1C, CBC, CMP, ADIFF, GFR, ANEU, LIPID, VIDH, [id number] #### [address] [address] #### PTH #### [address] [address] PTHon 11-07-2024 PTH, Intact 45.3 pg/mL Normal 18.5-88.0 [facility] Comment on above: Performed By: #### A 1C, CBC, CMP, ADIFF, GFR, ANEU, LIPID, VIDH, [id number] #### [address] [address] #### PTH #### [address] [address] .Auto Diffon 10-18-2024 Basophil, Absolute 0.0 10 3/mcL Normal 0.0-0.3 [facility] Comment on above: Performed By: #### A 1C, CBC, CMP, ADIFF, GFR, ANEU, LIPID, VIDH, [id number] #### [address] [address] #### PTH #### [address] [address] Basophils/100 WBC (Bld) 0.1 % Normal 0.0-2.5 [facility] Comment on above: Performed By: #### A 1C, CBC, CMP, ADIFF, GFR, ANEU, LIPID, VIDH, [id number] #### [address] [address] #### PTH #### [address] [address] Eosinophil, Absolute 0.0 10 3/mcL Normal 0.0-0.7 [facility] Comment on above: Performed By: #### A 1C, CBC, CMP, ADIFF, GFR, ANEU, LIPID, VIDH, [id number] #### [address] [address] #### PTH #### [address] [address] Eosinophils/100 WBC (Bld) 0.1 % Normal 0.0-6.0 [facility] Comment on above: Performed By: #### A 1C, CBC, CMP, ADIFF, GFR, ANEU, LIPID, VIDH, [id number] #### [address] [address] #### PTH #### [address] [address] Lymphocyte, Absolute 0.8 10 3/mcL Low 0.9-4.3 [facility] Comment on above: Performed By: #### A 1C, CBC, CMP, ADIFF, GFR, ANEU, LIPID, VIDH, [id number] #### [address] [address] #### PTH #### [address] [address] Lymphocytes/100 WBC (Bld) 8.1 % Low 20.0-40.0 [facility] Comment on above: Performed By: #### A 1C, CBC, CMP, ADIFF, GFR, ANEU, LIPID, VIDH, [id number] #### [address] [address] #### PTH #### [address] [address] Monocyte, Absolute 1.0 10 3/mcL Normal 0.1-1.4 [facility] Comment on above: Performed By: #### A 1C, CBC, CMP, ADIFF, GFR, ANEU, LIPID, VIDH, [id number] #### [address] [address] #### PTH #### [address] [address] Monocytes/100 WBC (Bld) 11.3 % Normal 2.0-13.0 [facility] Comment on above: Performed By: #### A 1C, CBC, CMP, ADIFF, GFR, ANEU, LIPID, VIDH, [id number] #### [address] [address] #### PTH #### [address] [address] Neutrophils/100 WBC (Bld) 80.4 % High 50.0-75.0 [facility] Comment on above: Performed By: #### A 1C, CBC, CMP, ADIFF, GFR, ANEU, LIPID, VIDH, [id number] #### [address] [address] #### PTH #### [address] [address] .GFRon 10-18-2024 Estimated Glomerular Filtration Rate 16 ml/min/1.73sqm Normal [facility] Comment on above: Result Comment: Stages of [...] the eGFR results. Performed By: #### A 1C, CBC, CMP, ADIFF, GFR, ANEU, LIPID, VIDH, [id number] #### [address] [address] #### PTH #### [address] [address] .NEUABSon 10-18-2024 Neutrophil, Absolute 7.4 10 3/mcL Normal 2.3-8.1 [facility] Comment on above: Performed By: #### A 1C, CBC, CMP, ADIFF, GFR, ANEU, LIPID, VIDH, [id number] #### [address] [address] #### PTH #### [address] [address] BMPon 10-18-2024 BUN/Creatinine Ratio 11 ratio Normal 7-27 [facility] Comment on above: Performed By: #### A 1C, CBC, CMP, ADIFF, GFR, ANEU, LIPID, VIDH, [id number] #### [address] [address] #### PTH #### [address] [address] Calcium [Mass/Vol] 9.3 mg/dL Normal 8.4-10.2 [facility] Comment on above: Performed By: #### A 1C, CBC, CMP, ADIFF, GFR, ANEU, LIPID, VIDH, [id number] #### [address] [address] #### PTH #### [address] [address] Chloride [Moles/Vol] 95 mmol/L Low 98-107 [facility] Comment on above: Performed By: #### A 1C, CBC, CMP, ADIFF, GFR, ANEU, LIPID, VIDH, [id number] #### [address] [address] #### PTH #### [address] [address] CO2 [Moles/Vol] 25 mmol/L Normal 23-31 [facility] Comment on above: Performed By: #### A 1C, CBC, CMP, ADIFF, GFR, ANEU, LIPID, VIDH, [id number] #### [address] [address] #### PTH #### [address] [address] Creatinine [Mass/Vol] 3.67 mg/dL High 0.67-1.17 [facility] Comment on above: Performed By: #### A 1C, CBC, CMP, ADIFF, GFR, ANEU, LIPID, VIDH, [id number] #### [address] [address] #### PTH #### [address] [address] Electrolyte Balance 10.0 mEq/L Normal 4.0-15.0 [facility] Comment on above: Performed By: #### A 1C, CBC, CMP, ADIFF, GFR, ANEU, LIPID, VIDH, [id number] #### [address] [address] #### PTH #### [address] [address] Glucose [Mass/Vol] 109 mg/dL Normal 83-110 [facility] Comment on above: Performed By: #### A 1C, CBC, CMP, ADIFF, GFR, ANEU, LIPID, VIDH, [id number] #### [address] [address] #### PTH #### [address] [address] Potassium [Moles/Vol] 4.6 mmol/L Normal 3.5-5.1 [facility] Comment on above: Performed By: #### A 1C, CBC, CMP, ADIFF, GFR, ANEU, LIPID, VIDH, [id number] #### [address] [address] #### PTH #### [address] [address] Sodium [Moles/Vol] 130 mmol/L Low 136-145 [facility] Comment on above: Performed By: #### A 1C, CBC, CMP, ADIFF, GFR, ANEU, LIPID, VIDH, [id number] #### [address] [address] #### PTH #### [address] [address] Urea nitrogen [Mass/Vol] 39 mg/dL High 7-18 [facility] Comment on above: Performed By: #### A 1C, CBC, CMP, ADIFF, GFR, ANEU, LIPID, VIDH, [id number] #### [address] [address] #### PTH #### [address] [address] CBCon 10-18-2024 Erythrocyte distribution width (RBC) [Ratio] 14.5 % Normal 11.5-15.5 [facility] Comment on above: Performed By: #### A 1C, CBC, CMP, ADIFF, GFR, ANEU, LIPID, VIDH, [id number] #### [address] [address] #### PTH #### [address] [address] Hematocrit (Bld) [Volume fraction] 35.7 % Low 40.0-52.0 [facility] Comment on above: Performed By: #### A 1C, CBC, CMP, ADIFF, GFR, ANEU, LIPID, VIDH, [id number] #### [address] [address] #### PTH #### [place] [address] Hgb 12.5 G/dL Low 13.0-17.5 [facility] Comment on above: Performed By: #### A 1C, CBC, CMP, ADIFF, GFR, ANEU, LIPID, VIDH, [id number] #### [address] [address] #### PTH #### [address] [address] MCH (RBC) [Entitic mass] 34.9 pg High 27.0-33.0 [facility] Comment on above: Performed By: #### A 1C, CBC, CMP, ADIFF, GFR, ANEU, LIPID, VIDH, [id number] #### [address] [address] #### PTH #### [place] [address] MCHC 35.0 G/dL Normal 32.0-36.0 [facility] Comment on above: Performed By: #### A 1C, CBC, CMP, ADIFF, GFR, ANEU, LIPID, VIDH, [id number] #### [place] [id number] #### PTH #### [address] [address] MCV (RBC) [Entitic vol] 100.0 fL Normal 81.0-100.0 [facility] Comment on above: Performed By: #### A 1C, CBC, CMP, ADIFF, GFR, ANEU, LIPID, VIDH, [id number] #### [address] [address] #### PTH #### [place] [address] Platelet 143 10 3/mcL Low 150-450 [facility] Comment on above: Performed By: #### A 1C, CBC, CMP, ADIFF, GFR, ANEU, LIPID, VIDH, [id number] #### [address] [address] #### PTH #### [place] [address] Platelet mean volume (Bld) [Entitic vol] 7.1 fL Normal 6.4-10.5 [facility] Comment on above: Performed By: #### A 1C, CBC, CMP, ADIFF, GFR, ANEU, LIPID, VIDH, [id number] #### [address] [address] #### PTH #### [place] [address] RBC 3.58 10 6/mcL Low 4.50-6.00 [facility] Comment on above: Performed By: #### A 1C, CBC, CMP, ADIFF, GFR, ANEU, LIPID, VIDH, [id number] #### [address] [address] #### PTH #### [place] [address] WBC 9.3 10 3/mcL Normal 4.5-10.8 [facility] Comment on above: Performed By: #### A 1C, CBC, CMP, ADIFF, GFR, ANEU, LIPID, VIDH, [id number] #### [place] [address] [place], [place] [address] #### PTH #### [place] [address] LABORATORYOrdered By: SYSTEM SYSTEM on 10-18-2024 Basophils [...] 10/17/2024 3:37:12 PM Ordering Provider: CHI DURAN [facility] LABORATORYOrdered By: SYSTEM SYSTEM on 08-23-2024 Prostate specific Ag [Mass/Vol] 7.30 ng/mL High 0.00 - 4.00 ng/mL AO ADM SS PSAon 08-23-2024 Prostate Specific Antigen 7.30 ng/mL High 0.00-4.00 [facility] Comment on above: Performed By: #### A 1C, CBC, CMP, ADIFF, GFR, ANEU, LIPID, VIDH, [id number] #### [facility] [address] [place], [place] [address] #### PTH #### [facility] [address] [place] [address] ANGIOGRAPHY RENAL ARTERIE S W/PPon 07-07-2024 [...] External iliac artery; IIA: Internal iliac artery; RESPIRATORY SCIENTIST: Common femoral artery; RT: Right; LT: Left COMPARISON: CTA TAVR planning 06/10/2023. HISTORY: ORDERING SYSTEM PROVIDED HISTORY: Reason for Exam: ???to evaluate for renal artery stenosis, renal scarring or lesions???that could contribute to secondary causes of uncontrolled hypertension FINDINGS: Patient motion obscures detail. VASCULAR: Suprarenal Ao: Minimal mixed atherosclerosis.No aneurysm. CA: Challenging evaluation of stenosis given patient motion, however at least ryzh-[id number] stenosis due to noncalcified plaque at the [...] 07/07/2024 3:05:37 PM Ordering Provider: CHI DURAN [facility] .GFRon 06-30-2024 GFR 39 ml/min/1.73sqm [facility] Comment on above: Result Comment: [...] mL/min/1.73 square meters Performed By: #### A 1C, CBC, CMP, ADIFF, GFR, ANEU, LIPID, VIDH, [id number] #### [address] [address] #### PTH #### [address] [address] GFR Non- 32 ml/min/1.73sqm Normal [facility] Comment on above: Result Comment: GFR Population [...] mL/min/1.73 square meters Performed By: #### A 1C, CBC, CMP, ADIFF, GFR, ANEU, LIPID, VIDH, [id number] #### [address] [address] #### PTH #### [address] [address] CREon 06-30-2024 Creatinine [Mass/Vol] 2.02 mg/dL High 0.70-1.30 [facility] Comment on above: Order Comment: faxed to [phone]. 06/30/2024 13:21:40 EST AH/ALSfaxed to [phone]. 06/30/2024 13:40:47 EST AH/ALS Result Comment: Test ing performed on Siemens Dimension EXL analyzer using a modified kinetic Nathalie technique. Performed By: #### A 1C, CBC, CMP, ADIFF, GFR, ANEU, LIPID, VIDH, [id number] #### [place] [address] [place], [place] [address] #### PTH #### [address] [address] LABORATORYOrdered By: SYSTEM SYSTEM on 06-30-2024 Creatinine [...] 06-11-2024 % Free PSA 14.4 % Normal [facility] Comment on above: Result Comment: The table below lists the probability of prostate cancer for men with non-suspicious AJNET results and total PSA between 4 and [...] any other population of men. Performed At: [facility] [address] [id number] Malaika Killian PhD Ph:[phone] Performed By: #### A 1C, CBC, CMP, ADIFF, GFR, ANEU, LIPID, VIDH, [id number] #### [place] [address] #### PTH #### [place] [address] PSA Free 0.79 ng/mL Normal N/A [facility] Comment on above: Result Comment: Deepak PARKINOSN methodology. Performed By: #### A 1C, CBC, CMP, ADIFF, GFR, ANEU, LIPID, VIDH, [id number] #### [place] [address] #### PTH #### [place] [address] .Auto Diffon 06-09-2024 Basophil, Absolute 0.0 10 3/mcL Normal 0.0-0.2 [facility] Comment on above: Performed By: #### A 1C, CBC, CMP, ADIFF, GFR, ANEU, LIPID, VIDH, [id number] #### [address] [address] #### PTH #### [address] [address] Basophils/100 WBC (Bld) 0.4 % Normal 0.0-2.5 [facility] Comment on above: Performed By: #### A 1C, CBC, CMP, ADIFF, GFR, ANEU, LIPID, VIDH, [id number] #### [address] [address] #### PTH #### [address] [address] Eosinophil, Absolute 0.2 10 3/mcL Normal 0.0-0.7 [facility] Comment on above: Performed By: #### A 1C, CBC, CMP, ADIFF, GFR, ANEU, LIPID, VIDH, [id number] #### [address] [address] #### PTH #### [address] [address] Eosinophils/100 WBC (Bld) 4.5 % Normal 0.0-7.0 [facility] Comment on above: Performed By: #### A 1C, CBC, CMP, ADIFF, GFR, ANEU, LIPID, VIDH, [id number] #### [address] [address] #### PTH #### [address] [address] Lymphocyte, Absolute 1.0 10 3/mcL Normal 0.9-4.3 [facility] Comment on above: Performed By: #### A 1C, CBC, CMP, ADIFF, GFR, ANEU, LIPID, VIDH, [id number] #### [address] [address] #### PTH #### [address] [address] Lymphocytes/100 WBC (Bld) 25.9 % Normal 20.0-40.0 [facility] Comment on above: Performed By: #### A 1C, CBC, CMP, ADIFF, GFR, ANEU, LIPID, VIDH, [id number] #### [address] [address] #### PTH #### [address] [address] Monocyte, Absolute 0.4 10 3/mcL Normal 0.1-1.4 [facility] Comment on above: Performed By: #### A 1C, CBC, CMP, ADIFF, GFR, ANEU, LIPID, VIDH, [id number] #### [address] [address] #### PTH #### [address] [address] Monocytes/100 WBC (Bld) 8.8 % Normal 2.0-13.0 [facility] Comment on above: Performed By: #### A 1C, CBC, CMP, ADIFF, GFR, ANEU, LIPID, VIDH, [id number] #### [address] [address] #### PTH #### [address] [address] Neutrophils/100 WBC (Bld) 60.4 % Normal 50.0-75.0 [facility] Comment on above: Performed By: #### A 1C, CBC, CMP, ADIFF, GFR, ANEU, LIPID, VIDH, [id number] #### [address] [address] #### PTH #### [address] [address] .GFRon 06-09-2024 GFR 38 ml/min/1.73sqm Normal [facility] Comment on above: Result Comment: GFR Population [...] mL/min/1.73 square meters Performed By: #### A 1C, CBC, CMP, ADIFF, GFR, ANEU, LIPID, VIDH, [id number] #### [address] [address] #### PTH #### [address] [address] GFR Non- 31 ml/min/1.73sqm Normal [facility] Comment on above: Result Comment: GFR Population [...] mL/min/1.73 square meters Performed By: #### A 1C, CBC, CMP, ADIFF, GFR, ANEU, LIPID, VIDH, [id number] #### [address] [address] #### PTH #### [address] [address] .NEUABSon 06-09-2024 Neutrophil, Absolute 2.4 10 3/mcL Normal 2.3-8.1 [facility] Comment on above: Performed By: #### A 1C, CBC, CMP, ADIFF, GFR, ANEU, LIPID, VIDH, [id number] #### [address] [address] #### PTH #### [address] [address] A1Con 06-09-2024 Glucose [Mass/Vol] 103 mg/dL Normal [facility] Comment on above: Result Comment: Nalini mated Average Glucose calculated by equation ((28.7xA1C)-46.7) Estimated average glucose (eAG) is a calculated value from Hemoglobin A1C and is welding equipment sales representative of the average blood glucose level in the last 2-3 month period. Normal range: less than 114 mg/dL Performed By: #### A 1C, CBC, CMP, ADIFF, GFR, ANEU, LIPID, VIDH, [id number] #### [place] [address] #### PTH #### [place] [address] HbA1c (Bld) [Mass fraction] 5.2 % Normal 4.3-6.4 [facility] Comment on above: Performed By: #### A 1C, CBC, CMP, ADIFF, GFR, ANEU, LIPID, VIDH, [id number] #### [place] [address] #### PTH #### [place] [address] CBC 06-09-2024 Erythrocyte distribution width (RBC) [Ratio] 13.5 % Normal 11.5-15.5 [facility] Comment on above: Performed By: #### A 1C, CBC, CMP, ADIFF, GFR, ANEU, LIPID, VIDH, [id number] #### [address] [address] #### PTH #### [place] [address] Hematocrit (Bld) [Volume fraction] 38.9 % Low 40.0-52.0 [facility] Comment on above: Performed By: #### A 1C, CBC, CMP, ADIFF, GFR, ANEU, LIPID, VIDH, [id number] #### [place] [address] #### PTH #### [address] [address] Hgb 13.3 G/dL Normal 13.0-17.5 [facility] Comment on above: Performed By: #### A 1C, CBC, CMP, ADIFF, GFR, ANEU, LIPID, VIDH, [id number] #### [address] [address] #### PTH #### [address] [address] MCH (RBC) [Entitic mass] 34.6 pg High 27.0-33.0 [facility] Comment on above: Performed By: #### A 1C, CBC, CMP, ADIFF, GFR, ANEU, LIPID, VIDH, [id number] #### [address] [address] #### PTH #### [place] [address] MCHC 34.2 G/dL Normal 32.0-36.0 [facility] Comment on above: Performed By: #### A 1C, CBC, CMP, ADIFF, GFR, ANEU, LIPID, VIDH, [id number] #### [address] [address] #### PTH #### [address] [address] MCV (RBC) [Entitic vol] 101.2 fL High 81.0-100.0 [facility] Comment on above: Performed By: #### A 1C, CBC, CMP, ADIFF, GFR, ANEU, LIPID, VIDH, [id number] #### [address] [address] #### PTH #### [place] [address] Platelet 145 10 3/mcL Low 150-450 [facility] Comment on above: Performed By: #### A 1C, CBC, CMP, ADIFF, GFR, ANEU, LIPID, VIDH, [id number] #### [address] [address] #### PTH #### [address] [address] Platelet mean volume (Bld) [Entitic vol] 7.0 fL Normal 6.4-10.5 [facility] Comment on above: Performed By: #### A 1C, CBC, CMP, ADIFF, GFR, ANEU, LIPID, VIDH, [id number] #### [address] [address] #### PTH #### [address] [address] RBC 3.84 10 6/mcL Low 4.50-6.00 [facility] Comment on above: Performed By: #### A 1C, CBC, CMP, ADIFF, GFR, ANEU, LIPID, VIDH, [id number] #### [address] [address] #### PTH #### [place] [id number] WBC 4.0 10 3/mcL Low 4.5-10.8 [facility] Comment on above: Performed By: #### A 1C, CBC, CMP, ADIFF, GFR, ANEU, LIPID, VIDH, [id number] #### [address] [address] #### PTH #### [address] [address] CMPon 06-09-2024 Albumin Level 4.0 G/dL Normal 3.4-4.8 [facility] Comment on above: Performed By: #### A 1C, CBC, CMP, ADIFF, GFR, ANEU, LIPID, VIDH, [id number] #### [address] [address] #### PTH #### [address] [address] Albumin/Globulin [Mass ratio] 1.5 {ratio} Normal 1.1-2.5 [facility] Comment on above: Performed By: #### A 1C, CBC, CMP, ADIFF, GFR, ANEU, LIPID, VIDH, [id number] #### [address] [address] #### PTH #### [address] [address] ALP [Catalytic activity/Vol] 81 U/L Normal 40-135 [facility] Comment on above: Performed By: #### A 1C, CBC, CMP, ADIFF, GFR, ANEU, LIPID, VIDH, [id number] #### [address] [address] #### PTH #### [address] [address] ALT [Catalytic activity/Vol] 24 U/L Normal 16-63 [facility] Comment on above: Performed By: #### A 1C, CBC, CMP, ADIFF, GFR, ANEU, LIPID, VIDH, [id number] #### [place] [address] #### PTH #### [place] [address] AST [Catalytic activity/Vol] 15 U/L Normal 10-40 [facility] Comment on above: Performed By: #### A 1C, CBC, CMP, ADIFF, GFR, ANEU, LIPID, VIDH, [id number] #### [address] [address] #### PTH #### [place] [address] Bili Total 0.7 mg/dL Normal 0.2-1.0 [facility] Comment on above: Result Comment: Use of this assay is not recommended for patients undergoing treatment with eltrombopag due to the potential for falsely elevated results. Performed By: #### A 1C, CBC, CMP, ADIFF, GFR, ANEU, LIPID, VIDH, [id number] #### [address] [address] #### PTH #### [place] [phone] BUN/Creatinine Ratio 13 ratio Normal 7-27 [facility] Comment on above: Performed By: #### A 1C, CBC, CMP, ADIFF, GFR, ANEU, LIPID, VIDH, [id number] #### [address] [address] #### PTH #### [address] [address] Calcium [Mass/Vol] 9.5 mg/dL Normal 8.4-10.2 [facility] Comment on above: Performed By: #### A 1C, CBC, CMP, ADIFF, GFR, ANEU, LIPID, VIDH, [id number] #### [address] [address] #### PTH #### [address] [address] Chloride [Moles/Vol] 105 mmol/L Normal 98-107 [facility] Comment on above: Performed By: #### A 1C, CBC, CMP, ADIFF, GFR, ANEU, LIPID, VIDH, [id number] #### [address] [address] #### PTH #### [address] [address] CO2 [Moles/Vol] 28 mmol/L Normal 23-31 [facility] Comment on above: Performed By: #### A 1C, CBC, CMP, ADIFF, GFR, ANEU, LIPID, VIDH, [id number] #### [address] [address] #### PTH #### [address] [address] Creatinine [Mass/Vol] 2.06 mg/dL High 0.70-1.30 [facility] Comment on above: Result Comment: Test ing performed on Siemens Dimension EXL analyzer using a modified kinetic Nathalie technique. Performed By: #### A 1C, CBC, CMP, ADIFF, GFR, ANEU, LIPID, VIDH, [id number] #### [address] [address] #### PTH #### [address] [address] Electrolyte Balance 9.0 mEq/L Normal 4.0-15.0 [facility] Comment on above: Performed By: #### A 1C, CBC, CMP, ADIFF, GFR, ANEU, LIPID, VIDH, [id number] #### [address] [address] #### PTH #### [address] [address] Globulin 2.7 G/dL Normal [facility] Comment on above: Performed By: #### A 1C, CBC, CMP, ADIFF, GFR, ANEU, LIPID, VIDH, [id number] #### [address] [address] #### PTH #### [address] [address] Glucose [Mass/Vol] 82 mg/dL Low 83-110 [facility] Comment on above: Performed By: #### A 1C, CBC, CMP, ADIFF, GFR, ANEU, LIPID, VIDH, [id number] #### [address] [address] #### PTH #### [address] [address] Potassium [Moles/Vol] 4.6 mmol/L Normal 3.5-5.1 [facility] Comment on above: Performed By: #### A 1C, CBC, CMP, ADIFF, GFR, ANEU, LIPID, VIDH, [id number] #### [address] [address] #### PTH #### [address] [address] Sodium [Moles/Vol] 142 mmol/L Normal 136-145 [facility] Comment on above: Performed By: #### A 1C, CBC, CMP, ADIFF, GFR, ANEU, LIPID, VIDH, [id number] #### [address] [address] #### PTH #### [address] [address] Total Protein 6.7 G/dL Normal 6.4-8.2 [facility] Comment on above: Performed By: #### A 1C, CBC, CMP, ADIFF, GFR, ANEU, LIPID, VIDH, [id number] #### [place] [address] [place], [place] [address] #### PTH #### [facility] [address] [place] [address] Urea nitrogen [Mass/Vol] 27 mg/dL High 7-18 [facility] Comment on above: Performed By: #### A 1C, CBC, CMP, ADIFF, GFR, ANEU, LIPID, VIDH, [id number] #### [place] [address] [place], [place] [address] #### PTH #### [address] [address] LABORATORYOrdered By: LABEnvia SystemsR P CONTRIBUTOR_SYSTEM on 06-09-2024 % Free PSA [...] any other population of men. Performed At: [facility] [address] [place], [place] [id number] Malaika Killian PhD Ph:[phone] PSA Free (LC) 0.79 ng/mL Invalid Interpretation [...] calculated value from Hemoglobin A1C and is welding equipment sales representative of the average blood glucose [...] Cholesterol [Mass/Vol] 169 mg/dL Normal 0 - 2 00 mg/dL AO ADM SS Comment on above: [...] 06-09-2024 Cholesterol [Mass/Vol] 169 mg/dL Normal 0-200 [facility] Comment on above: Result Comment: Chol esterol Reference Interval: Less than 200 Desirable 200-239 Borderline high risk 240 and above High risk Performed By: #### A 1C, CBC, CMP, ADIFF, GFR, ANEU, LIPID, VIDH, [id number] #### [address] [address] #### PTH #### [address] [address] Cholesterol in HDL [Mass/Vol] 50 mg/dL Normal 40-60 [facility] Comment on above: Performed By: #### A 1C, CBC, CMP, ADIFF, GFR, ANEU, LIPID, VIDH, [id number] #### [address] [address] #### PTH #### [address] [address] Cholesterol in LDL [Mass/Vol] 96 mg/dL Normal 0-130 [facility] Comment on above: Performed By: #### A 1C, CBC, CMP, ADIFF, GFR, ANEU, LIPID, VIDH, [id number] #### [address] [address] #### PTH #### [address] [address] Triglyceride [Mass/Vol] 116 mg/dL Normal 0-150 A [facility] Comment on above: Result Comment: Trig lyceride Reference Interval: Less than 150 Normal 150-199 Borderline high risk 200-499 High risk 500 or higher Very high risk Performed By: #### A 1C, CBC, CMP, ADIFF, GFR, ANEU, LIPID, VIDH, [id number] #### [address] [address] #### PTH #### [address] [address] PTHon 06-09-2024 PTH, Intact 45.9 pg/mL Normal 18.5-88.0 [facility] Comment on above: Performed By: #### A 1C, CBC, CMP, ADIFF, GFR, ANEU, LIPID, VIDH, [id number] #### [address] [address] #### PTH #### [place] [address] VIDHon 06-09-2024 Vit. D 25-Hydroxy 45.1 ng/mL Normal [facility] Comment on above: Result Comment: Inte rpretive Values Based on Total 25([place]) Vitamin D: Deficient <20 ng/mL Insufficient 20 - <30 ng/mL Sufficient 30-100 ng/mL Performed By: #### A 1C, CBC, CMP, ADIFF, GFR, ANEU, LIPID, VIDH, [id number] #### [address] [address] #### PTH #### [address] [address] LABORATORYOrdered By: SYSTEM SYSTEM on 02-18-2024 Prostate specific Ag [Mass/Vol] 6.15 ng/mL High 0.00 - 4.00 ng/mL AO ADM SS PSAon 02-18-2024 Prostate Specific Antigen 6.15 ng/mL High 0.00-4.00 [facility] [place] Comment on above: Performed By: #### C MP, GFR, CBC, MG, ADIFF, ANEU #### [address] [address] .Auto Diffon 12-10-2023 Basophil, Absolute 0.0 10 3/mcL Normal 0.0-0.2 [facility] ([place]) Comment on above: Performed By: #### C MP, GFR, CBC, MG, ADIFF, ANEU #### [address] [address] Basophils/100 WBC (Bld) 0.3 % Normal 0.0-2.5 A [facility] ([place]) Comment on above: Performed By: #### C MP, GFR, CBC, MG, ADIFF, ANEU #### [address] [address] Eosinophil, Absolute 0.2 10 3/mcL Normal 0.0-0.4 [facility] ([place]) Comment on above: Performed By: #### C MP, GFR, CBC, MG, ADIFF, ANEU #### [address] [address] Eosinophils/100 WBC (Bld) 4.9 % Normal 0.0-7.0 [facility] ([place] Comment on above: Performed By: #### C MP, GFR, CBC, MG, ADIFF, ANEU #### [address] [address] Lymphocyte, Absolute 0.9 10 3/mcL Normal 0.8-3.9 [facility] ([place]) Comment on above: Performed By: #### C MP, GFR, CBC, MG, ADIFF, ANEU #### [address] [address] Lymphocytes/100 WBC (Bld) 24.1 % Normal 10.0-50.0 [facility] ([place] Comment on above: Performed By: #### C MP, GFR, CBC, MG, ADIFF, ANEU #### [address] [address] Monocyte, Absolute 0.4 10 3/mcL Normal 0.2-1.0 [facility] ([place] Comment on above: Performed By: #### C MP, GFR, CBC, MG, ADIFF, ANEU #### [address] [address] Monocytes/100 WBC (Bld) 10.8 % Normal 1.7-13.0 A [facility] ([place]) Comment on above: Performed By: #### C MP, GFR, CBC, MG, ADIFF, ANEU #### [facility] [address] [place] [address] Neutrophils/100 WBC (Bld) 59.9 % Normal 37.0-80.0 [facility] ([place] Comment on above: Performed By: #### C MP, GFR, CBC, MG, ADIFF, ANEU #### [address] [address] .GFRon 12-10-2023 GFR 48 ml/min/1.73sqm Normal [facility] ([place] Comment on above: Result Comment: GFR Population [...] MP, GFR, CBC, MG, ADIFF, ANEU #### [address] [address] GFR Non- 39 ml/min/1.73sqm Normal [facility] ([place] Comment on above: Result Comment: GFR Population [...] MP, GFR, CBC, MG, ADIFF, ANEU #### [place] [address] .NEUABSon 12-10-2023 Neutrophil, Absolute 2.3 10 3/mcL Low 2.9-6.2 [facility] ([place] Comment on above: Performed By: #### C MP, GFR, CBC, MG, ADIFF, ANEU #### [place] [address] A1Con 12-10-2023 HbA1c (Bld) [Mass fraction] 5.2 % Normal 4.3-6.4 [facility] ([place] Comment on above: Performed By: #### C MP, GFR, CBC, MG, ADIFF, ANEU #### [place] [address] CBCon 12-10-2023 Erythrocyte distribution width (RBC) [Ratio] 13.8 % Normal 11.5-14.5 [facility] ([place] Comment on above: Performed By: #### C MP, GFR, CBC, MG, ADIFF, ANEU #### [place] [address] Hematocrit (Bld) [Volume fraction] 37.0 % Low 42.0-52.0 [facility] ([place] Comment on above: Performed By: #### C MP, GFR, CBC, MG, ADIFF, ANEU #### [place] [address] Hgb 12.8 G/dL Low 14.0-18.0 [facility] ([place] Comment on above: Performed By: #### C MP, GFR, CBC, MG, ADIFF, ANEU #### [place] [address] MCH (RBC) [Entitic mass] 35.2 pg High 27.0-31.2 [facility] ([place] Comment on above: Performed By: #### C MP, GFR, CBC, MG, ADIFF, ANEU #### [place] [address] MCHC 34.7 G/dL Normal 31.8-35.4 [facility] ([place] Comment on above: Performed By: #### C MP, GFR, CBC, MG, ADIFF, ANEU #### [place] [address] MCV (RBC) [Entitic vol] 101.5 fL High 80.0-94.0 A [facility] ([place]) Comment on above: Performed By: #### C MP, GFR, CBC, MG, ADIFF, ANEU #### [place] [address] Platelet 142 10 3/mcL Normal 130-400 [facility] ([place] Comment on above: Performed By: #### C MP, GFR, CBC, MG, ADIFF, ANEU #### [place] [address] Platelet mean volume (Bld) [Entitic vol] 7.2 fL Low 7.4-10.4 [facility] [place] Comment on above: Performed By: #### C MP, GFR, CBC, MG, ADIFF, ANEU #### [place] [address] RBC 3.65 10 6/mcL Low 4.04-6.13 [facility] [place] Comment on above: Performed By: #### C MP, GFR, CBC, MG, ADIFF, ANEU #### [place] [address] WBC 3.8 10 3/mcL Low 4.6-10.8 [facility] [place] Comment on above: Performed By: #### C MP, GFR, CBC, MG, ADIFF, ANEU #### [address] [address] CMPon 12-10-2023 Albumin Level 3.9 G/dL Normal 3.4-4.8 [facility] ([place] Comment on above: Performed By: #### C MP, GFR, CBC, MG, ADIFF, ANEU #### [address] [address] Albumin/Globulin [Mass ratio] 1.3 {ratio} Normal 1.1-2.5 [facility] [place] Comment on above: Performed By: #### C MP, GFR, CBC, MG, ADIFF, ANEU #### [place] [phone] ALP [Catalytic activity/Vol] 74 U/L Normal 40-135 [facility] ([place] Comment on above: Performed By: #### C MP, GFR, CBC, MG, ADIFF, ANEU #### [place] [id number] ALT [Catalytic activity/Vol] 29 U/L Normal 16-63 [facility] [place] Comment on above: Performed By: #### C MP, GFR, CBC, MG, ADIFF, ANEU #### [place] [id number] AST [Catalytic activity/Vol] 15 U/L Normal 10-40 [facility] [place] Comment on above: Performed By: #### C MP, GFR, CBC, MG, ADIFF, ANEU #### [place] [id number] Bili Total 0.6 mg/dL Normal 0.2-1.0 [facility] [place] Comment on above: Result Comment: Use of this assay is not recommended for patients undergoing treatment with eltrombopag due to the potential for falsely elevated results. Performed By: #### C MP, GFR, CBC, MG, ADIFF, ANEU #### [place] [id number] BUN/Creatinine Ratio 17 ratio Normal 7-27 [facility] ([place]) Comment on above: Performed By: #### C MP, GFR, CBC, MG, ADIFF, ANEU #### [facility] [address] [place], [place] [address] Calcium [Mass/Vol] 8.6 mg/dL Normal 8.4-10.2 [facility] ([place]) Comment on above: Performed By: #### C MP, GFR, CBC, MG, ADIFF, ANEU #### [address] [address] Chloride [Moles/Vol] 105 mmol/L Normal 98-107 [facility] ([place] Comment on above: Performed By: #### C MP, GFR, CBC, MG, ADIFF, ANEU #### [place] [phone] CO2 [Moles/Vol] 27 mmol/L Normal 23-31 [facility] ([place]) Comment on above: Performed By: #### C MP, GFR, CBC, MG, ADIFF, ANEU #### [place] [phone] Creatinine [Mass/Vol] 1.70 mg/dL High 0.70-1.30 [facility] ([place]) Comment on above: Performed By: #### C MP, GFR, CBC, MG, ADIFF, ANEU #### [place] [address] Electrolyte Balance 9.0 mEq/L Normal 4.0-15.0 [facility] ([place]) Comment on above: Performed By: #### C MP, GFR, CBC, MG, ADIFF, ANEU #### [place] [phone] Globulin 2.9 G/dL Normal [facility] ([place] Comment on above: Performed By: #### C MP, GFR, CBC, MG, ADIFF, ANEU #### [place] [phone] Glucose [Mass/Vol] 92 mg/dL Normal 83-110 [facility] ([place] Comment on above: Performed By: #### C MP, GFR, CBC, MG, ADIFF, ANEU #### [place] [phone] Potassium [Moles/Vol] 4.1 mmol/L Normal 3.5-5.1 [facility] ([place]) Comment on above: Performed By: #### C MP, GFR, CBC, MG, ADIFF, ANEU #### [address] [address] Sodium [Moles/Vol] 141 mmol/L Normal 136-145 [facility] ([place] Comment on above: Performed By: #### C MP, GFR, CBC, MG, ADIFF, ANEU #### [address] [address] Total Protein 6.8 G/dL Normal 6.4-8.2 [facility] ([place] Comment on above: Performed By: #### C MP, GFR, CBC, MG, ADIFF, ANEU #### [address] [address] Urea nitrogen [Mass/Vol] 29 mg/dL High 7-18 [facility] ([place] Comment on above: Performed By: #### C MP, GFR, CBC, MG, ADIFF, ANEU #### [address] [address] LABORATORYOrdered By: SYSTEM SYSTEM on 12-10-2023 25-hydroxyvitamin [...] Cholesterol [Mass/Vol] 167 mg/dL Normal 0 - 2 00 mg/dL AO ADM SS Comment on above: [...] 12-10-2023 Cholesterol [Mass/Vol] 167 mg/dL Normal 0-200 [facility] ([place]) Comment on above: Result Comment: Chol esterol Reference Interval: Less than 200 Desirable 200-239 Borderline high risk 240 and above High risk Performed By: #### C MP, GFR, CBC, MG, ADIFF, ANEU #### [address] [address] Cholesterol in HDL [Mass/Vol] 47 mg/dL Normal 40-60 [facility] ([place] Comment on above: Performed By: #### C MP, GFR, CBC, MG, ADIFF, ANEU #### [address] [address] Cholesterol in LDL [Mass/Vol] 97 mg/dL Normal 0-130 [facility] ([place] Comment on above: Performed By: #### C MP, GFR, CBC, MG, ADIFF, ANEU #### [address] [address] Triglyceride [Mass/Vol] 113 mg/dL Normal 0-150 [facility] ([place]) Comment on above: Result Comment: Trig lyceride Reference Interval: Less than 150 Normal 150-199 Borderline high risk 200-499 High risk 500 or higher Very high risk Performed By: #### C MP, GFR, CBC, MG, ADIFF, ANEU #### [address] [address] MALBRon 12-10-2023 U Creatinine 144.7 mg/dL Normal 39.0-259.0 [facility] ([place] Comment on above: Performed By: #### C MP, GFR, CBC, MG, ADIFF, ANEU #### [address] [address] U Microalb 5440 mcg/dL Normal [facility] ([place] Comment on above: Performed By: #### C MP, GFR, CBC, MG, ADIFF, ANEU #### [place] [address] U Ratio Alb/Cre 38 mcg/mg High 0-30 [facility] ([place] Comment on above: Performed By: #### C MP, GFR, CBC, MG, ADIFF, ANEU #### [place] [address] PSAon 12-10-2023 Prostate Specific Antigen 5.24 ng/mL High 0.00-4.00 [facility] ([place] Comment on above: Performed By: #### C MP, GFR, CBC, MG, ADIFF, ANEU #### [place] [address] PTHon 12-10-2023 PTH, Intact 62.4 pg/mL Normal 18.5-88.0 [facility] ([place] Comment on above: Performed By: #### C MP, GFR, CBC, MG, ADIFF, ANEU #### [place] [address] VIDHon 12-10-2023 Vit. D 25-Hydroxy 29.1 ng/mL Normal [facility] ([place] Comment on above: Result Comment: Inte rpretive Values Based on Total 25(OH) Vitamin D: Deficient <20 ng/mL Insufficient 20 - <30 ng/mL Sufficient 30-100 ng/mL Performed By: #### C MP, GFR, CBC, MG, ADIFF, ANEU #### [place] [address] .GFRon 08-10-2023 GFR 46 ml/min/1.73sqm Normal [facility] ([place] Comment on above: Result Comment: GFR Population [...] MP, GFR, CBC, MG, ADIFF, ANEU #### [address] [address] GFR Non- 38 ml/min/1.73sqm Normal [facility] ([place] Comment on above: Result Comment: GFR Population [...] MP, GFR, CBC, MG, ADIFF, ANEU #### [address] [address] BMPon 08-10-2023 BUN/Creatinine Ratio 14 ratio Normal 7-27 [facility] ([place] Comment on above: Performed By: #### C MP, GFR, CBC, MG, ADIFF, ANEU #### [address] [address] Calcium [Mass/Vol] 9.1 mg/dL Normal 8.4-10.2 [facility] ([place] Comment on above: Performed By: #### C MP, GFR, CBC, MG, ADIFF, ANEU #### [address] [address] Chloride [Moles/Vol] 105 mmol/L Normal 98-107 [facility] ([place] Comment on above: Performed By: #### C MP, GFR, CBC, MG, ADIFF, ANEU #### [address] [address] CO2 [Moles/Vol] 28 mmol/L Normal 23-31 [facility] ([place] Comment on above: Performed By: #### C MP, GFR, CBC, MG, ADIFF, ANEU #### [address] [address] Creatinine [Mass/Vol] 1.76 mg/dL High 0.70-1.30 [facility] ([place]) Comment on above: Performed By: #### C MP, GFR, CBC, MG, ADIFF, ANEU #### [address] [address] Electrolyte Balance 10.0 mEq/L Normal 4.0-15.0 [facility] ([place]) Comment on above: Performed By: #### C MP, GFR, CBC, MG, ADIFF, ANEU #### [address] [address] Glucose [Mass/Vol] 105 mg/dL Normal 83-110 [facility] ([place] Comment on above: Performed By: #### C MP, GFR, CBC, MG, ADIFF, ANEU #### [address] [address] Potassium [Moles/Vol] 4.1 mmol/L Normal 3.5-5.1 [facility] ([place]) Comment on above: Performed By: #### C MP, GFR, CBC, MG, ADIFF, ANEU #### [address] [address] Sodium [Moles/Vol] 143 mmol/L Normal 136-145 [facility] ([place] Comment on above: Performed By: #### C MP, GFR, CBC, MG, ADIFF, ANEU #### [address] [address] Urea nitrogen [Mass/Vol] 25 mg/dL High 7-18 [facility] ([place] Comment on above: Performed By: #### C MP, GFR, CBC, MG, ADIFF, ANEU #### [address] [address] LABORATORYOrdered By: SYSTEM SYSTEM on 08-10-2023 Calcium [...] Basophil, Absolute 0.0 10 3/mcL Normal 0.0-0.2 [facility] ([place] Comment on above: Performed By: #### C MP, GFR, CBC, MG, ADIFF, ANEU #### [address] [address] Basophils/100 WBC (Bld) 0.4 % Normal 0.0-2.5 A [facility] ([place]) Comment on above: Performed By: #### C MP, GFR, CBC, MG, ADIFF, ANEU #### [address] [address] Eosinophil, Absolute 0.3 10 3/mcL Normal 0.0-0.4 [facility] ([place] Comment on above: Performed By: #### C MP, GFR, CBC, MG, ADIFF, ANEU #### [address] [address] Eosinophils/100 WBC (Bld) 6.2 % Normal 0.0-7.0 [facility] ([place] Comment on above: Performed By: #### C MP, GFR, CBC, MG, ADIFF, ANEU #### [address] [address] Lymphocyte, Absolute 0.9 10 3/mcL Normal 0.8-3.9 [facility] ([place] Comment on above: Performed By: #### C MP, GFR, CBC, MG, ADIFF, ANEU #### [address] [address] Lymphocytes/100 WBC (Bld) 19.0 % Normal 10.0-50.0 [facility] ([place] Comment on above: Performed By: #### C MP, GFR, CBC, MG, ADIFF, ANEU #### [address] [address] Monocyte, Absolute 0.3 10 3/mcL Normal 0.2-1.0 [facility] ([place] Comment on above: Performed By: #### C MP, GFR, CBC, MG, ADIFF, ANEU #### [address] [address] Monocytes/100 WBC (Bld) 6.7 % Normal 1.7-13.0 [facility] ([place]) Comment on above: Performed By: #### C MP, GFR, CBC, MG, ADIFF, ANEU #### [address] [address] Neutrophils/100 WBC (Bld) 67.7 % Normal 37.0-80.0 [facility] ([place] Comment on above: Performed By: #### C MP, GFR, CBC, MG, ADIFF, ANEU #### [address] [address] .GFRon 07-30-2023 GFR Non- 32 ml/min/1.73sqm Normal [facility] ([place] Comment on above: Result Comment: GFR Population [...] MP, GFR, CBC, MG, ADIFF, ANEU #### [address] [address] GFR 38 ml/min/1.73sqm Normal [facility] ([place] Comment on above: Result Comment: GFR Population [...] MP, GFR, CBC, MG, ADIFF, ANEU #### [address] [address] .NEUABSon 07-30-2023 Neutrophil, Absolute 3.2 10 3/mcL Normal 2.9-6.2 [facility] ([place] Comment on above: Performed By: #### C MP, GFR, CBC, MG, ADIFF, ANEU #### [address] [address] BMPon 07-30-2023 BUN/Creatinine Ratio 17 ratio Normal 7-27 [facility] ([place] Comment on above: Order Comment: TO BE DONE 07/21-09/1230-DAYS S/P TAVR Performed By: #### C MP, GFR, CBC, MG, ADIFF, ANEU #### [place] [phone] Calcium [Mass/Vol] 9.4 mg/dL Normal 8.4-10.2 [facility] ([place] Comment on above: Order Comment: TO BE DONE 07/21-09/1230-DAYS S/P TAVR Performed By: #### C MP, GFR, CBC, MG, ADIFF, ANEU #### [address] [address] Chloride [Moles/Vol] 105 mmol/L Normal 98-107 [facility] ([place] Comment on above: Order Comment: TO BE DONE 07/21-09/1230-DAYS S/P TAVR Performed By: #### C MP, GFR, CBC, MG, ADIFF, ANEU #### [address] [address] CO2 [Moles/Vol] 26 mmol/L Normal 23-31 [facility] ([place] Comment on above: Order Comment: TO BE DONE 07/21-09/1230-DAYS S/P TAVR Performed By: #### C MP, GFR, CBC, MG, ADIFF, ANEU #### [address] [address] Creatinine [Mass/Vol] 2.06 mg/dL High 0.70-1.30 [facility] ([place]) Comment on above: Order Comment: TO BE DONE 07/21-09/1230-DAYS S/P TAVR Performed By: #### C MP, GFR, CBC, MG, ADIFF, ANEU #### [address] [address] Electrolyte Balance 10.0 mEq/L Normal 4.0-15.0 [facility] ([place]) Comment on above: Order Comment: TO BE DONE 07/21-09/1230-DAYS S/P TAVR Performed By: #### C MP, GFR, CBC, MG, ADIFF, ANEU #### [address] [address] Glucose [Mass/Vol] 142 mg/dL High 83-110 [facility] ([place] Comment on above: Order Comment: TO BE DONE 07/21-09/1230-DAYS S/P TAVR Performed By: #### C MP, GFR, CBC, MG, ADIFF, ANEU #### [address] [address] Potassium [Moles/Vol] 4.5 mmol/L Normal 3.5-5.1 [facility] ([place]) Comment on above: Order Comment: TO BE DONE 07/21-09/1230-DAYS S/P TAVR Performed By: #### C MP, GFR, CBC, MG, ADIFF, ANEU #### [place] [address] Sodium [Moles/Vol] 141 mmol/L Normal 136-145 [facility] ([place] Comment on above: Order Comment: TO BE DONE 07/21-09/1230-DAYS S/P TAVR Performed By: #### C MP, GFR, CBC, MG, ADIFF, ANEU #### [place] [address] Urea nitrogen [Mass/Vol] 36 mg/dL High 7-18 [facility] ([place] Comment on above: Order Comment: TO BE DONE 07/21-09/1230-DAYS S/P TAVR Performed By: #### C MP, GFR, CBC, MG, ADIFF, ANEU #### [place] [address] CBCon 07-30-2023 Erythrocyte distribution width (RBC) [Ratio] 13.3 % Normal 11.5-14.5 [facility] ([place] Comment on above: Order Comment: TO BE DONE 07/21-09/1230-DAYS S/P TAVR Performed By: #### C MP, GFR, CBC, MG, ADIFF, ANEU #### [place] [address] Hematocrit (Bld) [Volume fraction] 35.8 % Low 42.0-52.0 [facility] ([place] Comment on above: Order Comment: TO BE DONE 07/21-09/1230-DAYS S/P TAVR Performed By: #### C MP, GFR, CBC, MG, ADIFF, ANEU #### [place] [address] Hgb 12.6 G/dL Low 14.0-18.0 [facility] ([place] Comment on above: Order Comment: TO BE DONE 07/21-09/1230-DAYS S/P TAVR Performed By: #### C MP, GFR, CBC, MG, ADIFF, ANEU #### [place] [address] MCH (RBC) [Entitic mass] 34.2 pg High 27.0-31.2 [facility] ([place] Comment on above: Order Comment: TO BE DONE 07/21-09/1230-DAYS S/P TAVR Performed By: #### C MP, GFR, CBC, MG, ADIFF, ANEU #### [address] [address] MCHC 35.1 G/dL Normal 31.8-35.4 [facility] ([place] Comment on above: Order Comment: TO BE DONE 07/21-09/1230-DAYS S/P TAVR Performed By: #### C MP, GFR, CBC, MG, ADIFF, ANEU #### [place] [phone] MCV (RBC) [Entitic vol] 97.5 fL High 80.0-94.0 A [facility] ([place]) Comment on above: Order Comment: TO BE DONE 07/21-09/1230-DAYS S/P TAVR Performed By: #### C MP, GFR, CBC, MG, ADIFF, ANEU #### [address] [address] Platelet 129 10 3/mcL Low 130-400 [facility] ([place] Comment on above: Order Comment: TO BE DONE 07/21-09/1230-DAYS S/P TAVR Performed By: #### C MP, GFR, CBC, MG, ADIFF, ANEU #### [place] [phone] Platelet mean volume (Bld) [Entitic vol] 7.1 fL Low 7.4-10.4 [facility] ([place] Comment on above: Order Comment: TO BE DONE 07/21-09/1230-DAYS S/P TAVR Performed By: #### C MP, GFR, CBC, MG, ADIFF, ANEU #### [address] [address] RBC 3.67 10 6/mcL Low 4.04-6.13 [facility] ([place] Comment on above: Order Comment: TO BE DONE 07/21-09/1230-DAYS S/P TAVR Performed By: #### C MP, GFR, CBC, MG, ADIFF, ANEU #### [address] [address] WBC 4.8 10 3/mcL Normal 4.6-10.8 [facility] ([place] Comment on above: Order Comment: TO BE DONE 07/21-09/1230-DAYS S/P TAVR Performed By: #### C MP, GFR, CBC, MG, ADIFF, ANEU #### [address] [address] .Auto Diffon 07-01-2023 Basophil, Absolute 0.0 10 3/mcL Normal 0.0-0.3 [facility] ([place] Comment on above: Performed By: #### C MP, GFR, CBC, MG, ADIFF, ANEU #### [address] [address] Basophils/100 WBC (Bld) 0.1 % Normal 0.0-2.5 A [facility] ([place] Comment on above: Performed By: #### C MP, GFR, CBC, MG, ADIFF, ANEU #### [address] [address] Eosinophil, Absolute 0.1 10 3/mcL Normal 0.0-0.7 [facility] ([place] Comment on above: Performed By: #### C MP, GFR, CBC, MG, ADIFF, ANEU #### [address] [address] Eosinophils/100 WBC (Bld) 2.6 % Normal 0.0-6.0 [facility] ([place] Comment on above: Performed By: #### C MP, GFR, CBC, MG, ADIFF, ANEU #### [address] [address] Lymphocyte, Absolute 0.7 10 3/mcL Low 0.9-4.3 [facility] ([place] Comment on above: Performed By: #### C MP, GFR, CBC, MG, ADIFF, ANEU #### [address] [address] Lymphocytes/100 WBC (Bld) 11.9 % Low 20.0-40.0 [facility] ([place] Comment on above: Performed By: #### C MP, GFR, CBC, MG, ADIFF, ANEU #### [address] [address] Monocyte, Absolute 0.7 10 3/mcL Normal 0.1-1.4 [facility] ([place] Comment on above: Performed By: #### C MP, GFR, CBC, MG, ADIFF, ANEU #### [address] [address] Monocytes/100 WBC (Bld) 11.9 % Normal 2.0-13.0 [facility] ([place] Comment on above: Performed By: #### C MP, GFR, CBC, MG, ADIFF, ANEU #### [address] [address] Neutrophils/100 WBC (Bld) 73.5 % Normal 50.0-75.0 [facility] ([place] Comment on above: Performed By: #### C MP, GFR, CBC, MG, ADIFF, ANEU #### [address] [address] .GFRon 07-01-2023 GFR 59 ml/min/1.73sqm Normal [facility] ([place] Comment on above: Result Comment: GFR Population [...] MP, GFR, CBC, MG, ADIFF, ANEU #### [address] [address] GFR Non- 49 ml/min/1.73sqm Normal [facility] ([place] Comment on above: Result Comment: GFR Population [...] MP, GFR, CBC, MG, ADIFF, ANEU #### [address] [address] .NEUABSon 07-01-2023 Neutrophil, Absolute 4.1 10 3/mcL Normal 2.3-8.1 [facility] ([place] Comment on above: Performed By: #### C MP, GFR, CBC, MG, ADIFF, ANEU #### [address] [address] BMPon 07-01-2023 BUN/Creatinine Ratio 13.5 ratio Normal 10.0-22.0 [facility] ([place] Comment on above: Performed By: #### C MP, GFR, CBC, MG, ADIFF, ANEU #### [address] [address] Calcium [Mass/Vol] 9.5 mg/dL Normal 8.7-10.4 [facility] ([place] Comment on above: Performed By: #### C MP, GFR, CBC, MG, ADIFF, ANEU #### [address] [address] Chloride [Moles/Vol] 107 mmol/L Normal 98-110 [facility] ([place] Comment on above: Performed By: #### C MP, GFR, CBC, MG, ADIFF, ANEU #### [address] [address] CO2 [Moles/Vol] 26 mmol/L Normal 22-32 [facility] ([place] Comment on above: Performed By: #### C MP, GFR, CBC, MG, ADIFF, ANEU #### [address] [address] Creatinine [Mass/Vol] 1.41 mg/dL High 0.60-1.40 [facility] ([place]) Comment on above: Performed By: #### C MP, GFR, CBC, MG, ADIFF, ANEU #### [address] [address] Electrolyte Balance 6.0 mEq/L Normal 4.0-15.0 [facility] ([place] Comment on above: Performed By: #### C MP, GFR, CBC, MG, ADIFF, ANEU #### [address] [address] Glucose [Mass/Vol] 101 mg/dL Normal 82-115 [facility] ([place] Comment on above: Performed By: #### C MP, GFR, CBC, MG, ADIFF, ANEU #### [address] [address] Potassium [Moles/Vol] 4.2 mmol/L Normal 3.5-5.0 [facility] ([place]) Comment on above: Result Comment: Spec imen slightly hemolyzed. Performed By: #### C MP, GFR, CBC, MG, ADIFF, ANEU #### [address] [address] Sodium [Moles/Vol] 139 mmol/L Normal 136-145 [facility] ([place] Comment on above: Performed By: #### C MP, GFR, CBC, MG, ADIFF, ANEU #### [address] [address] Urea nitrogen [Mass/Vol] 19.0 mg/dL Normal 8.0-22.0 [facility] ([place] Comment on above: Performed By: #### C MP, GFR, CBC, MG, ADIFF, ANEU #### [place] [address] CBCon 07-01-2023 Erythrocyte distribution width (RBC) [Ratio] 13.9 % Normal 11.5-15.5 [facility] ([place] Comment on above: Performed By: #### C MP, GFR, CBC, MG, ADIFF, ANEU #### [place] [address] Hematocrit (Bld) [Volume fraction] 35.5 % Low 40.0-52.0 [facility] ([place] Comment on above: Performed By: #### C MP, GFR, CBC, MG, ADIFF, ANEU #### [place] [address] Hgb 12.5 G/dL Low 13.0-17.5 [facility] ([place] Comment on above: Performed By: #### C MP, GFR, CBC, MG, ADIFF, ANEU #### [place] [address] MCH (RBC) [Entitic mass] 35.0 pg High 27.0-33.0 [facility] ([place] Comment on above: Performed By: #### C MP, GFR, CBC, MG, ADIFF, ANEU #### [place] [address] MCHC 35.3 G/dL Normal 32.0-36.0 [facility] ([place] Comment on above: Performed By: #### C MP, GFR, CBC, MG, ADIFF, ANEU #### [place] [address] MCV (RBC) [Entitic vol] 99.2 fL Normal 81.0-100.0 A [facility] ([place] Comment on above: Performed By: #### C MP, GFR, CBC, MG, ADIFF, ANEU #### [place] [address] Platelet 130 10 3/mcL Low 150-450 [facility] ([place] Comment on above: Performed By: #### C MP, GFR, CBC, MG, ADIFF, ANEU #### [facility] [address] [place], [place] [address] Platelet mean volume (Bld) [Entitic vol] 6.9 fL Normal 6.4-10.5 [facility] [place] Comment on above: Performed By: #### C MP, GFR, CBC, MG, ADIFF, ANEU #### [facility] [address] [place] [address] RBC 3.58 10 6/mcL Low 4.50-6.00 [facility] ([place] Comment on above: Performed By: #### C MP, GFR, CBC, MG, ADIFF, ANEU #### [facility] [address] [place] [address] WBC 5.5 10 3/mcL Normal 4.5-10.8 [facility] ([place] Comment on above: Performed By: #### C MP, GFR, CBC, MG, ADIFF, ANEU #### [place] [address] [place] [address] LABORATORYOrdered By: SYSTEM SYSTEM on 07-01-2023 Basophils (Bld) [#/Vol] 0.0 103/mcL Normal 0.0 - 0.3 10^3/mcL Workflow SS Basophils/100 WBC (Bld) 0.1 % Normal 0.0 - 2.5 % Workflow SS Calcium [Mass/Vol] 9.5 mg/dL Normal 8.7 - 10. 4 mg/dL ADM SS Chloride [Moles/Vol] 107 mmol/L Normal 98 - 11 0 mEq/L ADM SS CO2 [Moles/Vol] 26 mmol/L Normal 22 - 32 mEq/L ADM SS Creatinine [Mass/Vol] 1.41 mg/dL High 0.60 - 1.40 mg/dL ADM SS Electrolyte Balance 6.0 mEq/L Normal 4.0 - 15 .0 mEq/L AH ADM SS Eosinophils (Bld) [#/Vol] 0.1 103/mcL Normal 0.0 - 0.7 10^3/mcL AH Workflow SS Eosinophils/100 WBC (Bld) 2.6 % Normal 0.0 - 6.0 % AH Workflow SS Erythrocyte distribution width (RBC) [Ratio] 13.9 % Normal 11.5 - 15.5 % AH Workflow SS GFR/1.73 sq M.predicted among blacks MDRD (S/P/Bld) [Vol rate/Area] 59 ml/min/1.73sqm Invalid Interpretation Code [facility] Comment on above: Interpretive Data: GFR [...] [Vol rate/Area] 49 ml/min/1.73sqm Invalid Interpretation Code [facility] Comment on above: Interpretive Data: GFR [...] mg/dL Normal 82 - 115 mg/dL ADM Hematocrit (Bld) [Volume fraction] 35.5 % Low 40.0 - 52.0 % Workflow SS Hemoglobin (Bld) [Mass/Vol] 12.5 G/dL Low 13.0 - 17.5 G/dL Workflow SS Lymphocytes (Bld) [#/Vol] 0.7 103/mcL Low 0.9 - 4.3 10^3/mcL Workflow SS Lymphocytes/100 WBC (Bld) 11.9 % Low 20.0 - 40.0 % AH Workflow SS MCH (RBC) [Entitic mass] 35.0 pg High 27.0 - 33.0 pg AH Workflow SS MCHC 35.3 G/dL Normal 32.0 - 36.0 G/dL AH Workflow SS MCV (RBC) [Entitic vol] 99.2 fL Normal 81.0 - 100.0 fL AH Workflow SS Monocytes (Bld) [#/Vol] 0.7 103/mcL Normal 0.1 - 1.4 10^3/mcL AH Workflow SS Monocytes/100 WBC (Bld) 11.9 % Normal 2.0 - 13.0 % AH Workflow SS Neutrophils (Bld) [#/Vol] 4.1 103/mcL Normal 2.3 - 8.1 10^3/mcL AH Workflow SS Neutrophils/100 WBC (Bld) 73.5 % Normal 50.0 - 75.0 % AH Workflow SS Platelet mean volume (Bld) [Entitic vol] 6.9 fL Normal 6.4 - 10.5 fL Workflow SS Platelets (Bld) [#/Vol] 130 103/mcL Low 150 - 450 10^3/mcL AH Workflow SS Potassium [Moles/Vol] 4.2 mmol/L Normal 3.5 - 5.0 mEq/L AH [...] 13.5 ratio Normal 10.0 - 22.0 ratio AH ADM SS WBC (Bld) [#/Vol] 5.5 103/mcL [...] Comment on above: Interpretive Data: Edson lorenz [employer] (CHEST, 1991, [id number]) recommended therapeutic range for oral anticoagulant therapy is: LOW RISK: Prophylaxis of venous thrombosis INR: 2.0-3.0 Treatment of pulmonary embolism 2.0-3.0 Prevention of systemic embolism 2.0-3.0 HIGH RISK: Mechanical prosthetic valves 2.5-3.5 PROon 07-01-2023 INR Coag (PPP) [Relative time] 1.0 {INR} Normal [facility] [place] Comment on above: Result Comment: [employer] (CHEST, 1991, [id number]) recommended therapeutic range for oral anticoagulant therapy is: LOW RISK: Prophylaxis of venous thrombosis INR: 2.0-3.0 Treatment of pulmonary embolism 2.0-3.0 Prevention of systemic embolism 2.0-3.0 HIGH RISK: Mechanical prosthetic valves 2.5-3.5 Performed By: #### C MP, GFR, CBC, MG, ADIFF, ANEU #### [address] [address] PT Coag (PPP) [Time] 11.7 s Normal 9.0-14.2 [facility] [place] Comment on above: Result Comment: Effe ctive 01/04/08, Protime results may be affected by some antibiotics (i.e. Ciprofloxacin, Azithromycin, Bactrim) which may potentiate the action of oral anticoagulants, with further increases in Protime/INR. Performed By: #### C MP, GFR, CBC, MG, ADIFF, ANEU #### [address] [address] .Auto Diffon 06-30-2023 Basophil, Absolute 0.0 10 3/mcL Normal 0.0-0.3 [facility] [place] Comment on above: Performed By: #### C MP, GFR, CBC, MG, ADIFF, ANEU #### [address] [address] Basophils/100 WBC (Bld) 0.1 % Normal 0.0-2.5 A [facility] ([place] Comment on above: Performed By: #### C MP, GFR, CBC, MG, ADIFF, ANEU #### [address] [address] Eosinophil, Absolute 0.1 10 3/mcL Normal 0.0-0.7 [facility] [place] Comment on above: Performed By: #### C MP, GFR, CBC, MG, ADIFF, ANEU #### [address] [address] Eosinophils/100 WBC (Bld) 1.8 % Normal 0.0-6.0 [facility] [place] Comment on above: Performed By: #### C MP, GFR, CBC, MG, ADIFF, ANEU #### [address] [address] Lymphocyte, Absolute 0.6 10 3/mcL Low 0.9-4.3 [facility] ([place] Comment on above: Performed By: #### C MP, GFR, CBC, MG, ADIFF, ANEU #### [address] [address] Lymphocytes/100 WBC (Bld) 12.6 % Low 20.0-40.0 [facility] ([place] Comment on above: Performed By: #### C MP, GFR, CBC, MG, ADIFF, ANEU #### [address] [address] Monocyte, Absolute 0.5 10 3/mcL Normal 0.1-1.4 [facility] ([place] Comment on above: Performed By: #### C MP, GFR, CBC, MG, ADIFF, ANEU #### [address] [address] Monocytes/100 WBC (Bld) 9.5 % Normal 2.0-13.0 [facility] ([place] Comment on above: Performed By: #### C MP, GFR, CBC, MG, ADIFF, ANEU #### [address] [address] Neutrophils/100 WBC (Bld) 76.0 % High 50.0-75.0 [facility] ([place] Comment on above: Performed By: #### C MP, GFR, CBC, MG, ADIFF, ANEU #### [address] [address] .GFRon 06-30-2023 GFR Non- 44 ml/min/1.73sqm Normal [facility] ([place] Comment on above: Result Comment: GFR Population [...] MP, GFR, CBC, MG, ADIFF, ANEU #### [address] [address] GFR 54 ml/min/1.73sqm Normal [facility] ([place] Comment on above: Result Comment: GFR Population [...] MP, GFR, CBC, MG, ADIFF, ANEU #### [address] [address] .NEUABSon 06-30-2023 Neutrophil, Absolute 3.8 10 3/mcL Normal 2.3-8.1 [facility] ([place] Comment on above: Performed By: #### C MP, GFR, CBC, MG, ADIFF, ANEU #### [address] [address] ABO/Rh (Gel)on 06-30-2023 ABO/Rh Interp Positive Invalid Interpretation Code [facility] ([place] Comment on above: Performed By: #### C MP, GFR, CBC, MG, ADIFF, ANEU #### [address] [address] ABS (Gel)on 06-30-2023 ABSC Interp (Gel) Negative Normal [facility] ([place] Comment on above: Performed By: #### C MP, GFR, CBC, MG, ADIFF, ANEU #### [address] [address] BMPon 06-30-2023 BUN/Creatinine Ratio 15.0 ratio Normal 10.0-22.0 [facility] ([place] Comment on above: Order Comment: withi n 1/2 hour of admission to CVSICU Performed By: #### C MP, GFR, CBC, MG, ADIFF, ANEU #### [address] [address] Calcium [Mass/Vol] 9.5 mg/dL Normal 8.7-10.4 [facility] ([place] Comment on above: Order Comment: withi n 1/2 hour of admission to CVSICU Performed By: #### C MP, GFR, CBC, MG, ADIFF, ANEU #### [address] [address] Chloride [Moles/Vol] 109 mmol/L Normal 98-110 [facility] [place] Comment on above: Order Comment: withi n 1/2 hour of admission to CVSICU Performed By: #### C MP, GFR, CBC, MG, ADIFF, ANEU #### [address] [address] CO2 [Moles/Vol] 29 mmol/L Normal 22-32 [facility] [place] Comment on above: Order Comment: withi n 1/2 hour of admission to CVSICU Performed By: #### C MP, GFR, CBC, MG, ADIFF, ANEU #### [address] [address] Creatinine [Mass/Vol] 1.53 mg/dL High 0.60-1.40 [facility] ([place]) Comment on above: Order Comment: withi n 1/2 hour of admission to CVSICU Performed By: #### C MP, GFR, CBC, MG, ADIFF, ANEU #### [address] [address] Electrolyte Balance 3.0 mEq/L Low 4.0-15.0 [facility] ([place] Comment on above: Order Comment: withi n 1/2 hour of admission to CVSICU Performed By: #### C MP, GFR, CBC, MG, ADIFF, ANEU #### [place] [id number] Glucose [Mass/Vol] 95 mg/dL Normal 82-115 [facility] ([place] Comment on above: Order Comment: withi n 1/2 hour of admission to CVSICU Performed By: #### C MP, GFR, CBC, MG, ADIFF, ANEU #### [address] [address] Potassium [Moles/Vol] 4.9 mmol/L Normal 3.5-5.0 [facility] ([place] Comment on above: Order Comment: withi n 1/2 hour of admission to CVSICU Result Comment: Spec imen slightly hemolyzed. Performed By: #### C MP, GFR, CBC, MG, ADIFF, ANEU #### [address] [address] Sodium [Moles/Vol] 141 mmol/L Normal 136-145 [facility] ([place] Comment on above: Order Comment: withi n 1/2 hour of admission to CVSICU Performed By: #### C MP, GFR, CBC, MG, ADIFF, ANEU #### [address] [address] Urea nitrogen [Mass/Vol] 23.0 mg/dL High 8.0-22.0 [facility] [place] Comment on above: Order Comment: withi n 1/2 hour of admission to CVSICU Performed By: #### C MP, GFR, CBC, MG, ADIFF, ANEU #### [address] [address] CBCon 06-30-2023 Erythrocyte distribution width (RBC) [Ratio] 14.0 % Normal 11.5-15.5 [facility] [place] Comment on above: Order Comment: withi n 1/2 hour of admission to CVSICU Performed By: #### C MP, GFR, CBC, MG, ADIFF, ANEU #### [place] [address] Hematocrit (Bld) [Volume fraction] 35.0 % Low 40.0-52.0 [facility] [place] Comment on above: Order Comment: withi n 1/2 hour of admission to CVSICU Performed By: #### C MP, GFR, CBC, MG, ADIFF, ANEU #### [place] [address] Hgb 12.6 G/dL Low 13.0-17.5 [facility] [place] Comment on above: Order Comment: withi n 1/2 hour of admission to CVSICU Performed By: #### C MP, GFR, CBC, MG, ADIFF, ANEU #### [place] [id number] MCH (RBC) [Entitic mass] 35.8 pg High 27.0-33.0 [facility] [place] Comment on above: Order Comment: withi n 1/2 hour of admission to CVSICU Performed By: #### C MP, GFR, CBC, MG, ADIFF, ANEU #### [place] [id number] MCHC 35.9 G/dL Normal 32.0-36.0 [facility] [place] Comment on above: Order Comment: withi n 1/2 hour of admission to CVSICU Performed By: #### C MP, GFR, CBC, MG, ADIFF, ANEU #### [address] [address] MCV (RBC) [Entitic vol] 99.5 fL Normal 81.0-100.0 A [facility] ([place] Comment on above: Order Comment: withi n 1/2 hour of admission to CVSICU Performed By: #### C MP, GFR, CBC, MG, ADIFF, ANEU #### [place] [address] Platelet 138 10 3/mcL Low 150-450 [facility] ([place] Comment on above: Order Comment: withi n 1/2 hour of admission to CVSICU Performed By: #### C MP, GFR, CBC, MG, ADIFF, ANEU #### [place] [address] Platelet mean volume (Bld) [Entitic vol] 6.9 fL Normal 6.4-10.5 [facility] [place] Comment on above: Order Comment: withi n 1/2 hour of admission to CVSICU Performed By: #### C MP, GFR, CBC, MG, ADIFF, ANEU #### [place] [address] RBC 3.52 10 6/mcL Low 4.50-6.00 [facility] [place] Comment on above: Order Comment: withi n 1/2 hour of admission to CVSICU Performed By: #### C MP, GFR, CBC, MG, ADIFF, ANEU #### [place] [address] WBC 5.0 10 3/mcL Normal 4.5-10.8 [facility] [place] Comment on above: Order Comment: withi n 1/2 hour of admission to CVSICU Performed By: #### C MP, GFR, CBC, MG, ADIFF, ANEU #### [place] [address] LABORATORYOrdered By: Radha bales on 06-30-2023 Blood Glucose Testing Reason Routine (06/30/23 9:15 PM) [facility] Work Phone: LABORATORYOrdered By: SYSTEM SYSTEM [...] 29 mmol/L Normal 22 - 32 mEq/L ADM SS Creatinine [Mass/Vol] 1.53 mg/dL High 0.60 - 1.40 mg/dL ADM SS Electrolyte Balance 3.0 mEq/L Low 4.0 - 15 .0 mEq/L ADM SS Eosinophils (Bld) [#/Vol] 0.1 103/mcL Normal 0.0 - 0.7 10^3/mcL AH Workflow SS Eosinophils/100 WBC (Bld) 1.8 % Normal 0.0 - 6.0 % Workflow SS Erythrocyte distribution width (RBC) [Ratio] 14.0 % Normal 11.5 - 15.5 % AH Workflow SS GFR/1.73 sq M.predicted among blacks MDRD (S/P/Bld) [Vol rate/Area] 54 ml/min/1.73sqm Invalid Interpretation Code ADM SS Comment [...] [Vol rate/Area] 44 ml/min/1.73sqm Invalid Interpretation Code AH ADM SS [...] 99.5 fL Normal 81.0 - 100.0 fL AH Workflow SS Monocytes (Bld) [#/Vol] 0.5 103/mcL [...] 5.0 103/mcL Normal 4.5 - 10.8 10^3/mcL AH Workflow SS LABORATORYOrdered By: Kunal Koch on 06-30-2023 ABO and Rh group Nom (Bld) Blood group A Rh(D) positive Invalid Interpretation Code AH BB Auto SS Blood group antibody screen Ql Negative ABSC (06/30/23 9:10 AM) Normal AH BB Auto SS CT ANGIOGRAPHY TAVR PLANNING [...] common iliac artery; EIA: external iliac artery; RESPIRATORY SCIENTIST: common femoral artery COMPARISON: None HISTORY: ORDERING SYSTEM PROVIDED HISTORY: Reason for Exam: severe coronary artery disease, hypertension, hyperlipidemia. FINDINGS: PRE-TAVR VASCULAR: Unless specified, all measurements are in mm. SoV Diameters RT: 31.3 NC: 33.5 LT: 34.1 3-cusp angulation (degrees): BENGALI 1.5, PLANT ASSIGNER 1.4 Asc Ao Margaret: 33.9 x 31.2 (@ 4 cm distal to annulus) STJ Margaret: 34.8 x 30.1 SoV Ht: 19.1 LVOT Margaret: 30.4 x 22.6 ANNULUS Diameter: 30.2 x 21.8 Area (mm^2): 483 Perimeter: 81.2 Height RCA: 16.2 Height LM: 11.9 ABD Ao Dmin: 17 RIGHT Dmin: MARCOS: 14.7 EIA: 9.7 RESPIRATORY SCIENTIST: 9.1 LEFT Dmin: MARCOS: 12.1 EIA: 9.6 RESPIRATORY SCIENTIST: 8.8 AORTIC VALVE Calcium Score: 5390 Calcium Vol (mm^3): 3524 Cusp #: Tricuspid Cusp thickening: Mild CALCIUM Cusp: Moderate. No definite severely calcified cusp which may obstruct coronary ostia. Annulus: Minimal Distribution: Asymmetric without extension to LVOT CORONARY DOMINANCE: Right ANOMALIES: None. LM gives rise to the LAD, RI, and LCx. 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 (more content not included)... Normal [facility] ([place] .Auto Diffon 06-24-2023 Basophil, Absolute 0.0 10 3/mcL Normal 0.0-0.2 [facility] ([place] Comment on above: Performed By: #### C MP, GFR, CBC, MG, ADIFF, ANEU #### [address] [address] Basophils/100 WBC (Bld) 0.3 % Normal 0.0-2.5 A [facility] ([place] Comment on above: Performed By: #### C MP, GFR, CBC, MG, ADIFF, ANEU #### [address] [address] Eosinophil, Absolute 0.2 10 3/mcL Normal 0.0-0.4 [facility] ([place] Comment on above: Performed By: #### C MP, GFR, CBC, MG, ADIFF, ANEU #### [address] [address] Eosinophils/100 WBC (Bld) 4.9 % Normal 0.0-7.0 [facility] ([place] Comment on above: Performed By: #### C MP, GFR, CBC, MG, ADIFF, ANEU #### [address] [address] Lymphocyte, Absolute 1.0 10 3/mcL Normal 0.8-3.9 [facility] ([place] Comment on above: Performed By: #### C MP, GFR, CBC, MG, ADIFF, ANEU #### [address] [address] Lymphocytes/100 WBC (Bld) 25.0 % Normal 10.0-50.0 [facility] ([place] Comment on above: Performed By: #### C MP, GFR, CBC, MG, ADIFF, ANEU #### [address] [address] Monocyte, Absolute 0.4 10 3/mcL Normal 0.2-1.0 [facility] ([place] Comment on above: Performed By: #### C MP, GFR, CBC, MG, ADIFF, ANEU #### [address] [address] Monocytes/100 WBC (Bld) 9.6 % Normal 1.7-13.0 [facility] ([place] Comment on above: Performed By: #### C MP, GFR, CBC, MG, ADIFF, ANEU #### [address] [address] Neutrophils/100 WBC (Bld) 60.2 % Normal 37.0-80.0 [facility] ([place] Comment on above: Performed By: #### C MP, GFR, CBC, MG, ADIFF, ANEU #### [address] [address] .GFRon 06-24-2023 GFR Non- 44 ml/min/1.73sqm Normal [facility] ([place] Comment on above: Result Comment: GFR Population [...] MP, GFR, CBC, MG, ADIFF, ANEU #### [address] [address] GFR 53 ml/min/1.73sqm Normal [facility] ([place] Comment on above: Result Comment: GFR Population [...] MP, GFR, CBC, MG, ADIFF, ANEU #### [address] [address] .NEUABSon 06-24-2023 Neutrophil, Absolute 2.4 10 3/mcL Low 2.9-6.2 [facility] ([place] Comment on above: Performed By: #### C MP, GFR, CBC, MG, ADIFF, ANEU #### [address] [address] BMPon 06-24-2023 BUN/Creatinine Ratio 14 ratio Normal 7-27 [facility] ([place] Comment on above: Performed By: #### C MP, GFR, CBC, MG, ADIFF, ANEU #### [address] [address] Calcium [Mass/Vol] 9.3 mg/dL Normal 8.4-10.2 [facility] ([place] Comment on above: Performed By: #### C MP, GFR, CBC, MG, ADIFF, ANEU #### [address] [address] Chloride [Moles/Vol] 106 mmol/L Normal 98-107 [facility] [place] Comment on above: Performed By: #### C MP, GFR, CBC, MG, ADIFF, ANEU #### [address] [address] CO2 [Moles/Vol] 28 mmol/L Normal 23-31 [facility] [place] Comment on above: Performed By: #### C MP, GFR, CBC, MG, ADIFF, ANEU #### [address] [address] Creatinine [Mass/Vol] 1.55 mg/dL High 0.70-1.30 [facility] ([place] Comment on above: Performed By: #### C MP, GFR, CBC, MG, ADIFF, ANEU #### [address] [address] Electrolyte Balance 9.0 mEq/L Normal 4.0-15.0 [facility] ([place] Comment on above: Performed By: #### C MP, GFR, CBC, MG, ADIFF, ANEU #### [address] [address] Glucose [Mass/Vol] 98 mg/dL Normal 83-110 [facility] ([place] Comment on above: Performed By: #### C MP, GFR, CBC, MG, ADIFF, ANEU #### [address] [address] Potassium [Moles/Vol] 4.3 mmol/L Normal 3.5-5.1 [facility] ([place] Comment on above: Performed By: #### C MP, GFR, CBC, MG, ADIFF, ANEU #### [place] [address] Sodium [Moles/Vol] 143 mmol/L Normal 136-145 [facility] ([place] Comment on above: Performed By: #### C MP, GFR, CBC, MG, ADIFF, ANEU #### [place] [address] Urea nitrogen [Mass/Vol] 21 mg/dL High 7-18 [facility] ([place] Comment on above: Performed By: #### C MP, GFR, CBC, MG, ADIFF, ANEU #### [place] [address] CBCon 06-24-2023 Erythrocyte distribution width (RBC) [Ratio] 13.7 % Normal 11.5-14.5 [facility] [place] Comment on above: Performed By: #### C MP, GFR, CBC, MG, ADIFF, ANEU #### [place] [address] Hematocrit (Bld) [Volume fraction] 37.3 % Low 42.0-52.0 [facility] [place] Comment on above: Performed By: #### C MP, GFR, CBC, MG, ADIFF, ANEU #### [place] [address] Hgb 13.3 G/dL Low 14.0-18.0 [facility] ([place] Comment on above: Performed By: #### C MP, GFR, CBC, MG, ADIFF, ANEU #### [place] [address] MCH (RBC) [Entitic mass] 35.1 pg High 27.0-31.2 [facility] ([place] Comment on above: Performed By: #### C MP, GFR, CBC, MG, ADIFF, ANEU #### [place] [address] MCHC 35.7 G/dL High 31.8-35.4 [facility] [place] Comment on above: Performed By: #### C MP, GFR, CBC, MG, ADIFF, ANEU #### [place] [address] MCV (RBC) [Entitic vol] 98.6 fL High 80.0-94.0 A [facility] ([place] Comment on above: Performed By: #### C MP, GFR, CBC, MG, ADIFF, ANEU #### [place] [address] Platelet 169 10 3/mcL Normal 130-400 [facility] [place] Comment on above: Performed By: #### C MP, GFR, CBC, MG, ADIFF, ANEU #### [place] [address] Platelet mean volume (Bld) [Entitic vol] 7.0 fL Low 7.4-10.4 [facility] [place] Comment on above: Performed By: #### C MP, GFR, CBC, MG, ADIFF, ANEU #### [place] [address] RBC 3.79 10 6/mcL Low 4.04-6.13 [facility] [place] Comment on above: Performed By: #### C MP, GFR, CBC, MG, ADIFF, ANEU #### [place] [address] WBC 4.1 10 3/mcL Low 4.6-10.8 [facility] [place] Comment on above: Performed By: #### C MP, GFR, CBC, MG, ADIFF, ANEU #### [place] [address] LABORATORYOrdered By: SYSTEM SYSTEM on 06-24-2023 Basophil, [...] B (Bld) [Mass/Vol] 469 pg/mL High 0-450 [facility] [place] Comment on above: Result Comment: NT-p roBNP results of less than 300 pg/mL effectively rules out acute congestive heart failure with 99% negative predictive value. Performed By: #### C MP, GFR, CBC, MG, ADIFF, ANEU #### [place] [address] XR PANOREX/ORTHOPANTOGRAMon 05-29-2023 XR PANOREX/ORTHOPANTOGRAM ORIGINAL EXAMINATION: ONE XRAY VIEW OF THE [...] 05/29/2023 9:17:06 AM Ordering Provider: SIMI Ayon [facility] [place] .Auto Diffon 05-27-2023 Basophil, Absolute 0.0 10 3/mcL Normal 0.0-0.2 [facility] [place] Comment on above: Performed By: #### C BC, GFR, ADIFF, A1C, ANEU, LIPID, CMP #### [address] [address] Basophils/100 WBC (Bld) 0.5 % Normal 0.0-2.5 A [facility] ([place] Comment on above: Performed By: #### C BC, GFR, ADIFF, A1C, ANEU, LIPID, CMP #### [address] [address] Eosinophil, Absolute 0.2 10 3/mcL Normal 0.0-0.4 [facility] ([place] Comment on above: Performed By: #### C BC, GFR, ADIFF, A1C, ANEU, LIPID, CMP #### [address] [address] Eosinophils/100 WBC (Bld) 3.9 % Normal 0.0-7.0 [facility] [place] Comment on above: Performed By: #### C BC, GFR, ADIFF, A1C, ANEU, LIPID, CMP #### [address] [address] Lymphocyte, Absolute 1.0 10 3/mcL Normal 0.8-3.9 [facility] ([place] Comment on above: Performed By: #### C BC, GFR, ADIFF, A1C, ANEU, LIPID, CMP #### [address] [address] Lymphocytes/100 WBC (Bld) 21.6 % Normal 10.0-50.0 [facility] [place] Comment on above: Performed By: #### C BC, GFR, ADIFF, A1C, ANEU, LIPID, CMP #### [address] [address] Monocyte, Absolute 0.4 10 3/mcL Normal 0.2-1.0 [facility] [place] Comment on above: Performed By: #### C BC, GFR, ADIFF, A1C, ANEU, LIPID, CMP #### [address] [address] Monocytes/100 WBC (Bld) 8.9 % Normal 1.7-13.0 [facility] [place] Comment on above: Performed By: #### C BC, GFR, ADIFF, A1C, ANEU, LIPID, CMP #### [address] [address] Neutrophils/100 WBC (Bld) 65.1 % Normal 37.0-80.0 [facility] [place] Comment on above: Performed By: #### C BC, GFR, ADIFF, A1C, ANEU, LIPID, CMP #### [address] [address] .GFRon 05-27-2023 GFR 49 ml/min/1.73sqm Normal [facility] [place] Comment on above: Result Comment: GFR Population [...] MP, GFR, CBC, MG, ADIFF, ANEU #### [address] [address] GFR Non- 40 ml/min/1.73sqm Normal [facility] [place] Comment on above: Result Comment: GFR Population [...] MP, GFR, CBC, MG, ADIFF, ANEU #### [address] [address] .NEUABSon 05-27-2023 Neutrophil, Absolute 3.0 10 3/mcL Normal 2.9-6.2 [facility] [place] Comment on above: Performed By: #### C BC, GFR, ADIFF, A1C, ANEU, LIPID, CMP #### [address] [address] A1Con 05-27-2023 HbA1c (Bld) [Mass fraction] 5.3 % Normal 4.3-6.4 [facility] [place] Comment on above: Performed By: #### C MP, GFR, CBC, MG, ADIFF, ANEU #### [address] [address] CBCon 05-27-2023 Erythrocyte distribution width (RBC) [Ratio] 13.5 % Normal 11.5-14.5 [facility] [place] Comment on above: Performed By: #### C BC, GFR, ADIFF, A1C, ANEU, LIPID, CMP #### [address] [address] Hematocrit (Bld) [Volume fraction] 36.9 % Low 42.0-52.0 [facility] [place] Comment on above: Performed By: #### C BC, GFR, ADIFF, A1C, ANEU, LIPID, CMP #### [address] [address] Hgb 13.1 G/dL Low 14.0-18.0 [facility] [place] Comment on above: Performed By: #### C BC, GFR, ADIFF, A1C, ANEU, LIPID, CMP #### [address] [address] MCH (RBC) [Entitic mass] 34.9 pg High 27.0-31.2 [facility] [place] Comment on above: Performed By: #### C BC, GFR, ADIFF, A1C, ANEU, LIPID, CMP #### [address] [address] MCHC 35.5 G/dL High 31.8-35.4 [facility] [place] Comment on above: Performed By: #### C BC, GFR, ADIFF, A1C, ANEU, LIPID, CMP #### [address] [address] MCV (RBC) [Entitic vol] 98.1 fL High 80.0-94.0 A [facility] ([place]) Comment on above: Performed By: #### C BC, GFR, ADIFF, A1C, ANEU, LIPID, CMP #### [address] [address] Platelet 168 10 3/mcL Normal 130-400 [facility] [place] Comment on above: Performed By: #### C BC, GFR, ADIFF, A1C, ANEU, LIPID, CMP #### [address] [address] Platelet mean volume (Bld) [Entitic vol] 6.7 fL Low 7.4-10.4 [facility] [place] Comment on above: Performed By: #### C BC, GFR, ADIFF, A1C, ANEU, LIPID, CMP #### [address] [address] RBC 3.76 10 6/mcL Low 4.04-6.13 [facility] [place] Comment on above: Performed By: #### C BC, GFR, ADIFF, A1C, ANEU, LIPID, CMP #### [address] [address] WBC 4.7 10 3/mcL Normal 4.6-10.8 [facility] [place] Comment on above: Performed By: #### C BC, GFR, ADIFF, A1C, ANEU, LIPID, CMP #### [address] [address] CMPon 05-27-2023 Albumin Level 3.8 G/dL Normal 3.4-4.8 [facility] [place] Comment on above: Performed By: #### C BC, GFR, ADIFF, A1C, ANEU, LIPID, CMP #### [address] [address] Albumin/Globulin [Mass ratio] 1.2 {ratio} Normal 1.1-2.5 [facility] [place] Comment on above: Performed By: #### C BC, GFR, ADIFF, A1C, ANEU, LIPID, CMP #### [address] [address] ALP [Catalytic activity/Vol] 75 U/L Normal 40-135 [facility] [place] Comment on above: Performed By: #### C BC, GFR, ADIFF, A1C, ANEU, LIPID, CMP #### [address] [address] ALT [Catalytic activity/Vol] 20 U/L Normal 16-63 [facility] [place] Comment on above: Performed By: #### C BC, GFR, ADIFF, A1C, ANEU, LIPID, CMP #### [address] [address] AST [Catalytic activity/Vol] 15 U/L Normal 10-40 [facility] [place] Comment on above: Performed By: #### C BC, GFR, ADIFF, A1C, ANEU, LIPID, CMP #### [address] [address] Bili Total 0.8 mg/dL Normal 0.2-1.0 [facility] [place] Comment on above: Result Comment: Use of this assay is not recommended for patients undergoing treatment with eltrombopag due to the potential for falsely elevated results. Performed By: #### C BC, GFR, ADIFF, A1C, ANEU, LIPID, CMP #### [address] [address] BUN/Creatinine Ratio 17 ratio Normal 7-27 [facility] [place] Comment on above: Performed By: #### C BC, GFR, ADIFF, A1C, ANEU, LIPID, CMP #### [address] [address] Calcium [Mass/Vol] 9.4 mg/dL Normal 8.4-10.2 [facility] [place] Comment on above: Performed By: #### C BC, GFR, ADIFF, A1C, ANEU, LIPID, CMP #### [address] [address] Chloride [Moles/Vol] 106 mmol/L Normal 98-107 [facility] [place] Comment on above: Performed By: #### C BC, GFR, ADIFF, A1C, ANEU, LIPID, CMP #### [address] [address] CO2 [Moles/Vol] 28 mmol/L Normal 23-31 [facility] [place] Comment on above: Performed By: #### C BC, GFR, ADIFF, A1C, ANEU, LIPID, CMP #### [address] [address] Creatinine [Mass/Vol] 1.67 mg/dL High 0.70-1.30 [facility] ([place] Comment on above: Performed By: #### C BC, GFR, ADIFF, A1C, ANEU, LIPID, CMP #### [address] [address] Electrolyte Balance 9.0 mEq/L Normal 4.0-15.0 [facility] ([place] Comment on above: Performed By: #### C BC, GFR, ADIFF, A1C, ANEU, LIPID, CMP #### [address] [address] Globulin 3.3 G/dL Normal [facility] [place] Comment on above: Performed By: #### C BC, GFR, ADIFF, A1C, ANEU, LIPID, CMP #### [address] [address] Glucose [Mass/Vol] 102 mg/dL Normal 83-110 [facility] [place] Comment on above: Performed By: #### C BC, GFR, ADIFF, A1C, ANEU, LIPID, CMP #### [address] [address] Potassium [Moles/Vol] 4.4 mmol/L Normal 3.5-5.1 [facility] ([place] Comment on above: Performed By: #### C BC, GFR, ADIFF, A1C, ANEU, LIPID, CMP #### [address] [address] Sodium [Moles/Vol] 143 mmol/L Normal 136-145 [facility] ([place] Comment on above: Performed By: #### C BC, GFR, ADIFF, A1C, ANEU, LIPID, CMP #### [address] [address] Total Protein 7.1 G/dL Normal 6.4-8.2 [facility] ([place] Comment on above: Performed By: #### C BC, GFR, ADIFF, A1C, ANEU, LIPID, CMP #### [address] [address] Urea nitrogen [Mass/Vol] 28 mg/dL High 7-18 [facility] [place] Comment on above: Performed By: #### C BC, GFR, ADIFF, A1C, ANEU, LIPID, CMP #### [address] [address] LIPIDon 05-27-2023 Cholesterol [Mass/Vol] 155 mg/dL Normal 0-200 [facility] ([place] Comment on above: Result Comment: Chol esterol Reference Interval: Less than 200 Desirable 200-239 Borderline high risk 240 and above High risk Performed By: #### C MP, GFR, CBC, MG, ADIFF, ANEU #### [address] [address] Cholesterol in HDL [Mass/Vol] 60 mg/dL Normal 40-60 [facility] [place] Comment on above: Performed By: #### C MP, GFR, CBC, MG, ADIFF, ANEU #### [address] [address] Cholesterol in LDL [Mass/Vol] 79 mg/dL Normal 0-130 [facility] [place] Comment on above: Performed By: #### C MP, GFR, CBC, MG, ADIFF, ANEU #### [address] [address] Triglyceride [Mass/Vol] 81 mg/dL Normal 0-150 [facility] ([place] Comment on above: Result Comment: Trig lyceride Reference Interval: Less than 150 Normal 150-199 Borderline high risk 200-499 High risk 500 or higher Very high risk Performed By: #### C MP, GFR, CBC, MG, ADIFF, ANEU #### [place] [address] LABORATORYOrdered By: SYSTEM SYSTEM on 05-22-2023 Prostate specific Ag [Mass/Vol] 4.03 ng/mL High 0.00 - 4.00 ng/mL AO ADM SS PSAon 05-22-2023 Prostate Specific Antigen 4.03 ng/mL High 0.00-4.00 [facility] [place] Comment on above: Performed By: #### C MP, GFR, CBC, MG, ADIFF, ANEU #### [place] [address] .Auto Diffon 05-21-2023 Basophil, Absolute 0.0 10 3/mcL Normal 0.0-0.3 [facility] [place] Comment on above: Performed By: #### C MP, GFR, CBC, MG, ADIFF, ANEU #### [place] [address] Basophils/100 WBC (Bld) 0.2 % Normal 0.0-2.5 [facility] ([place] Comment on above: Performed By: #### C MP, GFR, CBC, MG, ADIFF, ANEU #### [place] [address] Eosinophil, Absolute 0.1 10 3/mcL Normal 0.0-0.7 [facility] [place] Comment on above: Performed By: #### C MP, GFR, CBC, MG, ADIFF, ANEU #### [place] [address] Eosinophils/100 WBC (Bld) 3.2 % Normal 0.0-6.0 [facility] [place] Comment on above: Performed By: #### C MP, GFR, CBC, MG, ADIFF, ANEU #### [address] [address] Lymphocyte, Absolute 0.9 10 3/mcL Normal 0.9-4.3 [facility] [place] Comment on above: Performed By: #### C MP, GFR, CBC, MG, ADIFF, ANEU #### [address] [address] Lymphocytes/100 WBC (Bld) 22.8 % Normal 20.0-40.0 [facility] [place] Comment on above: Performed By: #### C MP, GFR, CBC, MG, ADIFF, ANEU #### [address] [address] Monocyte, Absolute 0.4 10 3/mcL Normal 0.1-1.4 [facility] [place] Comment on above: Performed By: #### C MP, GFR, CBC, MG, ADIFF, ANEU #### [address] [address] Monocytes/100 WBC (Bld) 9.1 % Normal 2.0-13.0 [facility] ([place] Comment on above: Performed By: #### C MP, GFR, CBC, MG, ADIFF, ANEU #### [address] [address] Neutrophils/100 WBC (Bld) 64.7 % Normal 50.0-75.0 [facility] [place] Comment on above: Performed By: #### C MP, GFR, CBC, MG, ADIFF, ANEU #### [address] [address] .GFRon 05-21-2023 GFR 47 ml/min/1.73sqm Normal [facility] [place] Comment on above: Result Comment: GFR Population [...] MP, GFR, CBC, MG, ADIFF, ANEU #### [address] [address] GFR Non- 39 ml/min/1.73sqm Normal [facility] [place] Comment on above: Result Comment: GFR Population [...] MP, GFR, CBC, MG, ADIFF, ANEU #### [address] [address] .NEUABSon 05-21-2023 Neutrophil, Absolute 2.6 10 3/mcL Normal 2.3-8.1 [facility] [place] Comment on above: Performed By: #### C MP, GFR, CBC, MG, ADIFF, ANEU #### [address] [address] CBCon 05-21-2023 Erythrocyte distribution width (RBC) [Ratio] 13.6 % Normal 11.5-15.5 [facility] [place] Comment on above: Performed By: #### C MP, GFR, CBC, MG, ADIFF, ANEU #### [address] [address] Hematocrit (Bld) [Volume fraction] 36.4 % Low 40.0-52.0 [facility] [place] Comment on above: Performed By: #### C MP, GFR, CBC, MG, ADIFF, ANEU #### [place] [address] Hgb 12.6 G/dL Low 13.0-17.5 [facility] [place] Comment on above: Performed By: #### C MP, GFR, CBC, MG, ADIFF, ANEU #### [place] [address] MCH (RBC) [Entitic mass] 34.9 pg High 27.0-33.0 [facility] [place] Comment on above: Performed By: #### C MP, GFR, CBC, MG, ADIFF, ANEU #### [place] [address] MCHC 34.6 G/dL Normal 32.0-36.0 [facility] [place] Comment on above: Performed By: #### C MP, GFR, CBC, MG, ADIFF, ANEU #### [place] [address] MCV (RBC) [Entitic vol] 101.0 fL High 81.0-100.0 [facility] [place] Comment on above: Performed By: #### C MP, GFR, CBC, MG, ADIFF, ANEU #### [place] [address] Platelet 156 10 3/mcL Normal 150-450 [facility] [place] Comment on above: Performed By: #### C MP, GFR, CBC, MG, ADIFF, ANEU #### [place] [address] Platelet mean volume (Bld) [Entitic vol] 7.3 fL Normal 6.4-10.5 [facility] [place] Comment on above: Performed By: #### C MP, GFR, CBC, MG, ADIFF, ANEU #### [place] [address] RBC 3.60 10 6/mcL Low 4.50-6.00 [facility] [place] Comment on above: Performed By: #### C MP, GFR, CBC, MG, ADIFF, ANEU #### [address] [address] WBC 4.0 10 3/mcL Low 4.5-10.8 [facility] [place] Comment on above: Performed By: #### C MP, GFR, CBC, MG, ADIFF, ANEU #### [address] [address] CMPon 05-21-2023 Albumin Level 3.6 G/dL Normal 3.2-4.8 [facility] [place] Comment on above: Performed By: #### C MP, GFR, CBC, MG, ADIFF, ANEU #### [place] [id number] Albumin/Globulin [Mass ratio] 1.5 {ratio} Normal 0.9-1.6 [facility] [place] Comment on above: Performed By: #### C MP, GFR, CBC, MG, ADIFF, ANEU #### [place] [phone] ALP [Catalytic activity/Vol] 67 U/L Normal 38-126 [facility] [place] Comment on above: Performed By: #### C MP, GFR, CBC, MG, ADIFF, ANEU #### [place] [phone] ALT [Catalytic activity/Vol] 15 U/L Normal 12-55 [facility] [place] Comment on above: Performed By: #### C MP, GFR, CBC, MG, ADIFF, ANEU #### [place] [phone] AST [Catalytic activity/Vol] 16 U/L Normal 8-34 [facility] [place] Comment on above: Performed By: #### C MP, GFR, CBC, MG, ADIFF, ANEU #### [place] [phone] Bili Total 0.60 mg/dL Normal 0.20-1.20 [facility] [place] Comment on above: Result Comment: Use of this assay is not recommended for patients undergoing treatment with eltrombopag due to the potential for falsely elevated results. Performed By: #### C MP, GFR, CBC, MG, ADIFF, ANEU #### [place] [phone] BUN/Creatinine Ratio 14.0 ratio Normal 10.0-22.0 [facility] [place] Comment on above: Performed By: #### C MP, GFR, CBC, MG, ADIFF, ANEU #### [address] [address] Calcium [Mass/Vol] 8.9 mg/dL Normal 8.7-10.4 [facility] ([place] Comment on above: Performed By: #### C MP, GFR, CBC, MG, ADIFF, ANEU #### [place] [phone] Chloride [Moles/Vol] 109 mmol/L Normal 98-110 [facility] [place] Comment on above: Performed By: #### C MP, GFR, CBC, MG, ADIFF, ANEU #### [place] [phone] CO2 [Moles/Vol] 26 mmol/L Normal 22-32 [facility] [place] Comment on above: Performed By: #### C MP, GFR, CBC, MG, ADIFF, ANEU #### [place] [address] Creatinine [Mass/Vol] 1.71 mg/dL High 0.60-1.40 [facility] ([place] Comment on above: Performed By: #### C MP, GFR, CBC, MG, ADIFF, ANEU #### [place] [phone] Electrolyte Balance 6.0 mEq/L Normal 4.0-15.0 [facility] ([place] Comment on above: Performed By: #### C MP, GFR, CBC, MG, ADIFF, ANEU #### [place] [phone] Globulin 2.4 G/dL Normal 1.5-3.8 [facility] ([place] Comment on above: Performed By: #### C MP, GFR, CBC, MG, ADIFF, ANEU #### [place] [phone] Glucose [Mass/Vol] 85 mg/dL Normal 82-115 [facility] ([place] Comment on above: Performed By: #### C MP, GFR, CBC, MG, ADIFF, ANEU #### [address] [address] Potassium [Moles/Vol] 4.2 mmol/L Normal 3.5-5.0 [facility] ([place] Comment on above: Performed By: #### C MP, GFR, CBC, MG, ADIFF, ANEU #### [address] [address] Sodium [Moles/Vol] 141 mmol/L Normal 136-145 [facility] ([place] Comment on above: Performed By: #### C MP, GFR, CBC, MG, ADIFF, ANEU #### [place] [phone] Total Protein 6.0 G/dL Normal 5.7-8.2 [facility] ([place] Comment on above: Result Comment: No te - New Reference Range in effect 20 Performed By: #### C MP, GFR, CBC, MG, ADIFF, ANEU #### [place] [address] Urea nitrogen [Mass/Vol] 24.0 mg/dL High 8.0-22.0 [facility] [place] Comment on above: Performed By: #### C MP, GFR, CBC, MG, ADIFF, ANEU #### [address] [address] MGon 05-21-2023 Magnesium [Mass/Vol] 2.2 mg/dL Normal 1.6-2.4 [facility] ([place] Comment on above: Performed By: #### C MP, GFR, CBC, MG, ADIFF, ANEU #### [address] [address] .Auto Diffon 05-19-2023 Basophil, Absolute 0.0 10 3/mcL Normal 0.0-0.3 [facility] ([place] Comment on above: Performed By: #### C MP, GFR, CBC, MG, ADIFF, ANEU #### [address] [address] Basophils/100 WBC (Bld) 0.2 % Normal 0.0-2.5 [facility] ([place] Comment on above: Performed By: #### C MP, GFR, CBC, MG, ADIFF, ANEU #### [address] [address] Eosinophil, Absolute 0.1 10 3/mcL Normal 0.0-0.7 [facility] ([place] Comment on above: Performed By: #### C MP, GFR, CBC, MG, ADIFF, ANEU #### [address] [address] Eosinophils/100 WBC (Bld) 4.0 % Normal 0.0-6.0 [facility] ([place] Comment on above: Performed By: #### C MP, GFR, CBC, MG, ADIFF, ANEU #### [address] [address] Lymphocyte, Absolute 0.9 10 3/mcL Normal 0.9-4.3 [facility] ([place] Comment on above: Performed By: #### C MP, GFR, CBC, MG, ADIFF, ANEU #### [address] [address] Lymphocytes/100 WBC (Bld) 23.1 % Normal 20.0-40.0 [facility] ([place] Comment on above: Performed By: #### C MP, GFR, CBC, MG, ADIFF, ANEU #### [address] [address] Monocyte, Absolute 0.3 10 3/mcL Normal 0.1-1.4 [facility] ([place] Comment on above: Performed By: #### C MP, GFR, CBC, MG, ADIFF, ANEU #### [address] [address] Monocytes/100 WBC (Bld) 8.2 % Normal 2.0-13.0 [facility] ([place] Comment on above: Performed By: #### C MP, GFR, CBC, MG, ADIFF, ANEU #### [address] [address] Neutrophils/100 WBC (Bld) 64.5 % Normal 50.0-75.0 [facility] [place] Comment on above: Performed By: #### C MP, GFR, CBC, MG, ADIFF, ANEU #### [address] [address] .GFRon 05-19-2023 GFR 51 ml/min/1.73sqm Normal [facility] ([place] Comment on above: Result Comment: GFR Population [...] MP, GFR, CBC, MG, ADIFF, ANEU #### [address] [address] GFR Non- 42 ml/min/1.73sqm Normal [facility] ([place] Comment on above: Result Comment: GFR Population [...] MP, GFR, CBC, MG, ADIFF, ANEU #### [address] [address] .NEUABSon 05-19-2023 Neutrophil, Absolute 2.4 10 3/mcL Normal 2.3-8.1 [facility] ([place] Comment on above: Performed By: #### C MP, GFR, CBC, MG, ADIFF, ANEU #### [address] [address] BMPon 05-19-2023 BUN/Creatinine Ratio 13.7 ratio Normal 10.0-22.0 [facility] ([place] Comment on above: Performed By: #### C MP, GFR, CBC, MG, ADIFF, ANEU #### [place] [address] Calcium [Mass/Vol] 9.2 mg/dL Normal 8.7-10.4 [facility] ([place] Comment on above: Performed By: #### C MP, GFR, CBC, MG, ADIFF, ANEU #### [place] [address] Chloride [Moles/Vol] 110 mmol/L Normal 98-110 [facility] [place] Comment on above: Performed By: #### C MP, GFR, CBC, MG, ADIFF, ANEU #### [place] [address] CO2 [Moles/Vol] 22 mmol/L Normal 22-32 [facility] [place] Comment on above: Performed By: #### C MP, GFR, CBC, MG, ADIFF, ANEU #### [place] [address] Creatinine [Mass/Vol] 1.61 mg/dL High 0.60-1.40 [facility] ([place] Comment on above: Performed By: #### C MP, GFR, CBC, MG, ADIFF, ANEU #### [place] [address] Electrolyte Balance 4.0 mEq/L Normal 4.0-15.0 [facility] ([place] Comment on above: Performed By: #### C MP, GFR, CBC, MG, ADIFF, ANEU #### [address] [address] Glucose [Mass/Vol] 129 mg/dL High 82-115 [facility] ([place] Comment on above: Performed By: #### C MP, GFR, CBC, MG, ADIFF, ANEU #### [address] [address] Potassium [Moles/Vol] 4.4 mmol/L Normal 3.5-5.0 [facility] ([place] Comment on above: Result Comment: Spec imen slightly hemolyzed. Performed By: #### C MP, GFR, CBC, MG, ADIFF, ANEU #### [place] [phone] Sodium [Moles/Vol] 136 mmol/L Normal 136-145 [facility] ([place] Comment on above: Performed By: #### C MP, GFR, CBC, MG, ADIFF, ANEU #### [place] [phone] Urea nitrogen [Mass/Vol] 22.0 mg/dL Normal 8.0-22.0 [facility] ([place] Comment on above: Performed By: #### C MP, GFR, CBC, MG, ADIFF, ANEU #### [address] [address] CBCon 05-19-2023 Erythrocyte distribution width (RBC) [Ratio] 13.5 % Normal 11.5-15.5 [facility] [place] Comment on above: Performed By: #### C MP, GFR, CBC, MG, ADIFF, ANEU #### [address] [address] Hematocrit (Bld) [Volume fraction] 36.2 % Low 40.0-52.0 [facility] ([place] Comment on above: Performed By: #### C MP, GFR, CBC, MG, ADIFF, ANEU #### [address] [address] Hgb 12.6 G/dL Low 13.0-17.5 [facility] ([place] Comment on above: Performed By: #### C MP, GFR, CBC, MG, ADIFF, ANEU #### [place] [address] MCH (RBC) [Entitic mass] 34.9 pg High 27.0-33.0 [facility] [place] Comment on above: Performed By: #### C MP, GFR, CBC, MG, ADIFF, ANEU #### [place] [address] MCHC 34.7 G/dL Normal 32.0-36.0 [facility] [place] Comment on above: Performed By: #### C MP, GFR, CBC, MG, ADIFF, ANEU #### [place] [address] MCV (RBC) [Entitic vol] 100.4 fL High 81.0-100.0 [facility] ([place] Comment on above: Performed By: #### C MP, GFR, CBC, MG, ADIFF, ANEU #### [place] [address] Platelet 149 10 3/mcL Low 150-450 [facility] [place] Comment on above: Performed By: #### C MP, GFR, CBC, MG, ADIFF, ANEU #### [place] [address] Platelet mean volume (Bld) [Entitic vol] 7.1 fL Normal 6.4-10.5 [facility] ([place] Comment on above: Performed By: #### C MP, GFR, CBC, MG, ADIFF, ANEU #### [place] [address] RBC 3.60 10 6/mcL Low 4.50-6.00 [facility] [place] Comment on above: Performed By: #### C MP, GFR, CBC, MG, ADIFF, ANEU #### [place] [address] WBC 3.8 10 3/mcL Low 4.5-10.8 [facility] [place] Comment on above: Performed By: #### C MP, GFR, CBC, MG, ADIFF, ANEU #### [place] [id number] [place] [id number] [place] MYOCARDIAL SPECT STRESS/R ESTon 05-19-2023 NM [...] fraction of 52 %. Interpreted by: Sagar Galaviz MD Preliminary Report By: Sagar Galaviz MD Electronically signed By Sagar Galaviz MD Dictated Date: 05/19/2023 10:52:42 AM Prelim Date: 05/19/2023 11:04:17 AM Sign Date: 05/19/2023 11:04:17 AM Ordering Provider: ABISAI MUNOZ [facility] ([place]) LABORATORYOrdered By: MATTHIAS DAVEY CONTRIBUTOR_SYSTEM on 12-29-2022 Bordetella parapertussis by PCR Not detected Invalid Interpretation Code Not Detected AO Sendouts SS Comment on above: Result Comment: Perf ormed By: [facility] [address] [place] [address] Auricular Acupuncturist: Estella Jason III#: [id number] Bordetella pertussis by PCR Not detected Invalid Interpretation Code Not detected AO Sendouts SS Comment on above: Result Comment: Perf ormed By: [facility] [address] [place] [id number] Auricular Acupuncturist: Estella Jason III#: [id number] LABORATORYOrdered By: SYSTEM SYSTEM on 11-20-2022 Albumin [...] 0 - 150 mg/dL AO ADM SS LABORATORYOrdered By: Christen Odonnell on 05-23-2022 Albumin [...] Code AO Chemistry S LABORATORYOrdered By: Bam Galaviz on 08-26-2021 Basophil, Absolute 0.00 103/mcL Invalid [...] Heme SS LABORATORYOrdered By: SYSTEM SYSTEM on 08-21-2021 GFR 55 ml/min/1.73sqm Invalid [...] Code AO BB SS LABORATORYOrdered By: Bam Galaviz on 08-09-2021 Albumin BCP dye [Mass/Vol] 4.0 [...] Time Vital Sign Value Performing Clinician Facility 12-28-2024 10:54-0400 Body height 185.42 cm Chi Sernapkins ELEVATING GRADER OPERATOR-C Work Phone: [facility] 12-28-2024 10:54-0400 Body mass index (BMI) [Ratio] 28.6 kg/m2 Chi Alfalfa ELEVATING GRADER OPERATOR-C Work Phone: [facility] 12-28-2024 10:54-0400 Body temperature 98.2 [degF] Chi Roger ELEVATING GRADER OPERATOR-C Work Phone: [facility] 12-28-2024 10:54-0400 Body weight 98.42 kg Chi Alfalfa ELEVATING GRADER OPERATOR-C Work Phone: [facility] 12-28-2024 10:54-0400 Diastolic blood pressure 70 mm[Hg] Chi Roger ELEVATING GRADER OPERATOR-C Work Phone: [facility] 12-28-2024 10:54-0400 Heart rate 68 /min Chi Alfalfa ELEVATING GRADER OPERATOR-C Work Phone: [facility] 12-28-2024 10:54-0400 Respiratory rate 16 /min Chi Roger ELEVATING GRADER OPERATOR-C Work Phone: [facility] 12-28-2024 10:54-0400 SaO2% (BldA) [Mass fraction] 96 % Chi Alfalfa ELEVATING GRADER OPERATOR-C Work Phone: [facility] 12-28-2024 10:54-0400 Systolic blood pressure 144 mm[Hg] Chi Alfalfa ELEVATING GRADER OPERATOR-C Work Phone: [facility] 11-28-2024 11:50-0400 Body mass index (BMI) [Ratio] 28 kg/m2 Chi Alfalfa ELEVATING GRADER OPERATOR-C Work Phone: [facility] 11-28-2024 10:30-0400 Body temperature 97.1 [degF] Chi Duran ELEVATING GRADER OPERATOR-C Work Phone: [facility] 11-28-2024 10:30-0400 Diastolic blood pressure 75 mm[Hg] Chi Duran ELEVATING GRADER OPERATOR-C Work Phone: [facility] 11-28-2024 10:30-0400 Heart rate 70 /min Chi Duran ELEVATING GRADER OPERATOR-C Work Phone: [facility] 11-28-2024 10:30-0400 Respiratory rate 17 /min Chi Alfalfa ELEVATING GRADER OPERATOR-C Work Phone: [facility] 11-28-2024 10:30-0400 SaO2% (BldA) [Mass fraction] 98 % Chi Roger ELEVATING GRADER OPERATOR-C Work Phone: [facility] 11-28-2024 10:30-0400 Systolic blood pressure 121 mm[Hg] Chi Duran ELEVATING GRADER OPERATOR-C Work Phone: [facility] 11-28-2024 03:40-0400 Body weight 96.3 kg Chi Sernapkins ELEVATING GRADER OPERATOR-C Work Phone: [facility] 11-27-2024 12:21-0400 Body height 185.42 cm Chi Sernapkins ELEVATING GRADER OPERATOR-C Work Phone: [facility] 11-26-2024 22:00-0400 Body temperature 98.5 [degF] Chi Duran ELEVATING GRADER OPERATOR-C Work Phone: [facility] 11-26-2024 22:00-0400 Diastolic blood pressure 73 mm[Hg] Chi Duran ELEVATING GRADER OPERATOR-C Work Phone: [facility] 11-26-2024 22:00-0400 Heart rate 63 /min Chi Duran ELEVATING GRADER OPERATOR-C Work Phone: [facility] 11-26-2024 22:00-0400 Respiratory rate 16 /min Chi Duran ELEVATING GRADER OPERATOR-C Work Phone: [facility] 11-26-2024 22:00-0400 SaO2% (BldA) [Mass fraction] 98 % Chi Sernapkins ELEVATING GRADER OPERATOR-C Work Phone: [facility] 11-26-2024 22:00-0400 Systolic blood pressure 133 mm[Hg] Chi Duran ELEVATING GRADER OPERATOR-C Work Phone: [facility] 11-26-2024 21:00-0400 Body height 185.42 cm Chi Sernapkins ELEVATING GRADER OPERATOR-C Work Phone: [facility] 11-26-2024 21:00-0400 Body mass index (BMI) [Ratio] 28.2 kg/m2 Chi Sernapkins ELEVATING GRADER OPERATOR-C Work Phone: [facility] 11-26-2024 21:00-0400 Body weight 97.1 kg hCi Sernapkins ELEVATING GRADER OPERATOR-C Work Phone: [facility] 07-01-2023 10:23-0500 Heart rate 70 /min RUBIO REBOLLEDO MD [facility] 07-01-2023 08:38-0500 Heart rate 88 /min RUBIO REBOLLEDO MD [facility] 07-01-2023 08:38-0500 Reason For Taking VItal Signs RUBIO REBOLLEDO MD [facility] 07-01-2023 07:11-0500 Body temperature 98.24 [degF] RUBIO REBOLLEDO MD [facility] 07-01-2023 07:11-0500 Diastolic Blood Pressure Non-Invasive 70 mm[Hg] RUBIO REBOLLEDO MD [facility] 07-01-2023 07:11-0500 Heart rate 72 /min RUBIO REBOLLEDO MD [facility] 07-01-2023 07:11-0500 Mean blood pressure 83 mm[Hg] RUBIO REBOLLEDO MD [facility] 07-01-2023 07:11-0500 Reason For Taking VItal Signs RUBIO REBOLLEDO MD [address] [place] [address] 07-01-2023 07:11-0500 Respiratory rate 16 /min RUBIO REBOLLEDO MD [address] [place] [address] 07-01-2023 07:11-0500 Systolic Blood Pressure Non-Invasive 122 mm[Hg] RUBIO REBOLLEDO MD [address] [place] [address] 07-01-2023 04:22-0500 Body temperature 98.24 [degF] RUBIO REBOLLEDO MD [address] [place] [address] 07-01-2023 04:22-0500 Diastolic Blood Pressure Non-Invasive 81 mm[Hg] RUBIO REBOLLEDO MD [address] [place] [address] 07-01-2023 04:22-0500 Heart rate 70 /min RUBIO REBOLLEDO MD [address] [place] [address] 07-01-2023 04:22-0500 Mean blood pressure 97 mm[Hg] RUBIO REBOLLEDO MD [address] [place] [address] 07-01-2023 04:22-0500 Reason For Taking VItal Signs RUBIO REBOLLEDO MD [address] [place] [address] 07-01-2023 04:22-0500 Respiratory rate 16 /min RUBIO REBOLLEDO MD [address] [place] [address] 07-01-2023 04:22-0500 Systolic Blood Pressure Non-Invasive 138 mm[Hg] RUBIO REBOLLEDO MD [address] [place] [address] 06-30-2023 23:12-0500 Body temperature 98.6 [degF] RUBIO REBOLLEDO MD [address] [place] [address] 06-30-2023 23:12-0500 Diastolic Blood Pressure Non-Invasive 83 mm[Hg] RUBIO REBOLLEDO MD [address] [place] [address] 06-30-2023 23:12-0500 Mean blood pressure 96 mm[Hg] RBUIO REBOLLEDO MD [facility] 06-30-2023 23:12-0500 Respiratory rate 18 /min RUBIO REBOLLEDO MD [facility] 06-30-2023 23:12-0500 Systolic Blood Pressure Non-Invasive 130 mm[Hg] RUBIO REBOLLEDO MD [address] 06-30-2023 08:35-0500 Body height 185.4 cm RUBIO REBOLLEDO MD [address] 06-30-2023 08:35-0500 Body weight 101.2 kg RUBIO REBOLLEDO MD [address] [place] [address] 06-30-2023 08:35-0500 Heart rate 50 /min RUBIO RE[facility]LLEDO MD [facility] [facility] 08-05-2022 16:43-0500 Body height 185.42 cm [facility] 08-22-2021 07:04-0500 Body temperature 98.06 [degF] DR DUC SCHERER MD [facility] 08-22-2021 07:04-0500 Diastolic blood pressure 64 mm[Hg] DR DUC SCHERER MD [facility] 08-22-2021 07:04-0500 Heart rate 65 /min DR DUC SCHERER MD [facility] 08-22-2021 07:04-0500 Reason For Taking VItal Signs DR DUC SCHERER MD [facility] 08-22-2021 07:04-0500 Respiratory rate 18 /min DR DUC SCHERER MD [facility] 08-22-2021 07:04-0500 Systolic blood pressure 108 mm[Hg] DR DUC SCHERER MD [facility] 08-22-2021 04:51-0500 Reason For Taking VItal Signs DR DUC SCHERER MD [facility] 08-22-2021 04:30-0500 Body temperature 97.7 [degF] DR DUC SCHERER MD [facility] 08-22-2021 04:30-0500 Diastolic blood pressure 62 mm[Hg] DR DUC SCHERER MD [facility] 08-22-2021 04:30-0500 Heart rate 71 /min DR DUC SCHERER MD [facility] 08-22-2021 04:30-0500 Mean blood pressure 84 mm[Hg] DR DUC SCHERER MD [facility] 08-22-2021 04:30-0500 Reason For Taking VItal Signs DR DUC SCHERER MD [facility] 08-22-2021 04:30-0500 Respiratory rate 18 /min DR DUC SCHERER MD [facility] 08-22-2021 04:30-0500 Systolic blood pressure 127 mm[Hg] DR DUC SCHERER MD [facility] 08-21-2021 23:50-0500 Body temperature 97.7 [degF] DR DUC SCHERER MD [facility] 08-21-2021 23:50-0500 Diastolic blood pressure 66 mm[Hg] DR DUC SCHERER MD [facility] 08-21-2021 23:50-0500 Heart rate 82 /min DR DUC SCHERER MD [facility] 08-21-2021 23:50-0500 Mean blood pressure 79 mm[Hg] DR DUC SCHERER MD [facility] 08-21-2021 23:50-0500 Respiratory rate 18 /min DR DUC SCHERER MD [facility] 08-21-2021 23:50-0500 Systolic blood pressure 104 mm[Hg] DR DUC SCHERER MD [facility] 08-21-2021 19:16-0500 Heart rate 66 /min DR DUC SCHERER MD [facility] 08-21-2021 19:16-0500 Mean blood pressure 72 mm[Hg] DR DUC SCHERER MD [facility] 08-21-2021 16:42-0500 Heart rate 66 /min DR DUC SCHERER MD [facility] 08-20-2021 17:22-0500 Heart rate 66 /min DR DUC SCHERER MD [facility] 08-20-2021 16:35-0500 Diastolic Blood Pressure NBP [address] SCH[address] [facility] 08-20-2021 16:35-0500 Systolic Blood Pressure NBP [address] SCH[address] [facility] 08-20-2021 15:11-0500 Body height [address] DUC SCHERER MD [facility] 08-20-2021 15:11-0500 Body weight 104.[address] DUC SCHERER MD [facility] 08-20-2021 15:11-0500 Body weight 31.55 kg/m2 DR DUC SCHERER MD [facility] 08-20-2021 13:15-0500 Diastolic Blood Pressure NBP [address] SCHERER MD [facility] 08-20-2021 13:15-0500 Systolic Blood Pressure NBP [address] SCHER[address] MD [facility] 08-20-2021 12:59-0500 Diastolic Blood Pressure NBP [address] SCHERER MD [facility] 08-20-2021 12:59-0500 Systolic Blood Pressure NBP [address] SCHERER MD [facility] 08-20-2021 12:25-0500 Body temperature 96.8 [degF] DR DUC SCHERER MD [facility] 08-20-2021 09:06-0500 Body height [address] DUC SCHERER MD [facility] 08-20-2021 09:06-0500 Body temperature 97.16 [degF] DR DUC SCHERER MD [facility] 08-20-2021 09:06-0500 Body weight 104.[address] DUC SCHERER MD [facility] 08-20-2021 09:06-0500 Body weight 31.55 kg/m2 DR DUC SCHERER MD [facility] 08-20-2021 09:06-0500 Heart rate 76 /min DR DUC SCHERER MD [facility] 08-09-2021 09:24-0500 Body height 182.[address] DUC SCHERER MD [facility] 08-09-2021 09:24-0500 Body weight 104.[address] DUC SCHERER MD [facility] 08-09-2021 09:24-0500 Body weight 31.24 kg/m2 DR DUC SCHERER MD [facility] 08-09-2021 09:24-0500 diastolic 70 mm[Hg] DR DUC SCHERER MD [facility] 08-09-2021 09:24-0500 Heart rate 71 /min DR DUC SCHERER MD [facility] 08-09-2021 09:24-0500 systolic 152 mm[Hg] DR DUC SCHERER MD [facility] Encounters Encounter Date Encounter Type Care Provider Facility Start: 04-04-2025 End: 04-08-2025 ambulatory TANYA WYLIE MD Facility:[facility] Start: 04-04-2025 End: 04-08-2025 Encounter for general adult medical examination without abnormal findings IVAN CHAMPION MD Facility:[facility] Start: 04-04-2025 End: 04-08-2025 Outreach Lab IVAN CHAMPION MD [facility] Start: 02-28-2025 End: 03-04-[address] GREGORIO NEAL MD Facility:[facility] Start: 02-28-2025 End: 03-04-[address] GREGORIO NEAL MD [facility] Start: 01-10-2025 End: 01-14-2025 ambulatory CHI DURAN KILN PACKER - GLAZIER ARTIST Facility:[facility] Start: 01-10-2025 End: 01-14-2025 Outreach Lab CHI DURAN KILN PACKER - GLAZIER ARTIST [facility] Start: 12-28-2024 End: 12-28-2024 Patient encounter procedure Madhuri Martinez ELEVATING GRADER OPERATOR-C -[facility] Work Phone: Start: 12-28-2024 End: 12-28-2024 ambulatory Chi Duran ELEVATING GRADER OPERATOR-C Work Phone: -[facility] Start: 12-03-[address] Thompson hitchcock DO -Cardiovascular Services Work Phone: Start: 12-03-2024 ambulatory Chi Duran ELEVATING GRADER OPERATOR Facility:[facility] Start: 11-28-2024 Non-patient / Non-visit Dr. Millie Payne [facility] Work Phone: Start: 11-28-2024 ambulatory Chi Duran ELEVATING GRADER OPERATOR Facility:[facility] Start: 11-28-2024 Non-patient / Non-visit Dr. Janee li MD -[facility] Start: 11-27-2024 Non-patient / Non-visit Dr. Millie Payne [facility] Work Phone: Start: 11-26-2024 End: 11-28-2024 ambulatory Chi Duran ELEVATING GRADER OPERATOR Facility:[facility] Start: 11-26-2024 End: 11-28-2024 Evaluation and management of inpatient Dr. Josefa Roberts MD -[facility] Work Phone: Start: 11-26-2024 End: 11-28-2024 observation encounter Chi Duran ELEVATING GRADER OPERATOR-C Work Phone: [facility] Work Phone: Start: 11-07-2024 End: 11-07-2024 ambulatory TANYA WYLIE MD Facility:[facility] Start: 11-07-2024 End: 11-07-2024 Patient encounter procedure TANYA WYLIE MD [facility] Start: 10-18-2024 End: 10-18-2024 ambulatory CHI Wright ROGER KILN PACKER - GLAZIER ARTIST Facility:[facility] Start: 10-18-2024 Encounter for preprocedural laboratory examination DR GREGORIO NEAL MD [facility] Start: 10-18-2024 End: 10-18-[address] GREGORIO NEAL MD [facility] Start: 10-18-2024 End: 10-18-[address] GREGORIO NEAL MD [facility] Start: 10-17-2024 End: 10-17-2024 ambulatory CHI SERNAPKINS KILN PACKER - GLAZIER ARTIST Facility:[facility] Start: 10-17-2024 End: 10-17-2024 Patient encounter procedure CHI DURAN KILN PACKER - GLAZIER ARTIST [facility] Start: 08-23-2024 End: 08-23-2024 ambulatory CHI Wrgiht ROGER KILN PACKER - GLAZIER ARTIST Facility:[facility] Start: 08-23-2024 End: 08-23-[address] GREGORIO NEAL MD [facility] Start: 06-30-2024 End: 06-30-2024 ambulatory DERICK AMOR MD Facility:[facility] Start: 06-30-2024 End: 06-30-2024 Patient encounter procedure DERICK AMOR MD [facility] Start: 06-09-2024 End: 06-13-2024 ambulatory CHI SERNAPKINS KILN PACKER - GLAZIER ARTIST Facility:[facility] Start: 06-09-2024 End: 06-13-2024 Outreach Lab CHI Wright ROGER KILN PACKER - GLAZIER ARTIST [facility] Start: 02-18-2024 End: 02-22-[address] GREGORIO NEAL MD Facility:[facility] Start: 02-18-2024 End: 02-22-[address] GREGORIO NEAL MD [facility] Start: 12-10-2023 End: 12-14-2023 ambulatory CHI Wright ROGER KILN PACKER - GLAZIER ARTIST Facility:[facility] Start: 12-10-2023 End: 12-14-2023 Outreach Lab CHI Wright ROGER KILN PACKER - GLAZIER ARTIST [facility] Start: 10-12-2023 ambulatory CHI D TOMP KINS KILN PACKER - GLAZIER ARTIST Facility:[facility] Start: 09-23-2023 End: 11-12-2023 ambulatory CHI D ROGER KILN PACKER - GLAZIER ARTIST Facility:[facility] Start: 09-23-2023 End: 11-12-2023 Cardiac Rehab RUBIO REBOLLEDO MD [facility] Start: 08-10-2023 End: 08-10-2023 ambulatory CHI D ROGER KILN PACKER - GLAZIER ARTIST Facility:[facility] Start: 08-10-2023 End: 08-10-2023 Patient encounter procedure SIMI SIMMONS KILN PACKER-GLAZIER ARTIST [facility] Start: 07-30-2023 End: 07-30-2023 ambulatory CHI D ROGER KILN PACKER - GLAZIER ARTIST Facility:[facility] Start: 07-28-2023 End: 07-28-2023 ambulatory CHI D ROGER KILN PACKER - GLAZIER ARTIST Facility:[facility] Start: 07-28-2023 End: 07-28-2023 Patient encounter procedure SIMI SIMMONS KILN PACKER-GLAZIER ARTIST [facility] Start: 06-30-2023 End: 07-01-2023 Evaluation and management of inpatient RUBIO REBOLLEDO MD [facility] Start: 06-24-2023 End: 06-24-2023 ambulatory CHI DURAN KILN PACKER - GLAZIER ARTIST Facility:[facility] Start: 06-24-2023 End: 06-24-2023 Patient encounter procedure SIMI SIMMONS KILN PACKER-GLAZIER ARTIST [facility] Start: 06-10-2023 ambulatory SIMI SIMMONS KILN PACKER-GLAZIER ARTIST Facility:[facility] Start: 05-28-2023 End: 05-28-2023 ambulatory CHI DURAN KILN PACKER - GLAZIER ARTIST Facility:[facility] Start: 05-28-2023 End: 05-28-2023 Patient encounter procedure SIMI SIMMONS KILN PACKER-GLAZIER ARTIST [facility] Start: 05-27-2023 End: 05-27-2023 ambulatory CHI DURAN KILN PACKER - GLAZIER ARTIST Facility:[facility] Start: 05-22-2023 End: 05-22-2023 ambulatory CHI DURAN KILN PACKER - GLAZIER ARTIST Facility:[facility] Start: 05-22-2023 End: 05-22-2023 Patient encounter procedure CHI DURAN KILN PACKER - GLAZIER ARTIST [facility] Start: 05-19-2023 End: 05-21-2023 Evaluation and management of inpatient DR GEO BETH MD Facility:[facility] Start: 05-19-2023 End: 05-19-2023 ambulatory SHRAVAN VEGA MD Facility:[facility] Start: 05-19-2023 End: 05-19-2023 Patient encounter procedure ABISAI MUNOZ MD [facility] Start: 12-29-2022 End: 01-02-2023 Outreach Lab JAZ BADILLO KILN PACKER-GLAZIER ARTIST [facility] Start: 11-20-2022 End: 11-20-[address] GREGORIO NEAL MD [facility] Start: 08-05-2022 End: 08-05-2022 ambulatory [facility] Work Phone: Start: 08-05-2022 End: 08-05-2022 Patient encounter procedure [facility]-Laboratory, Specimen Start: 05-23-2022 End: 05-23-2022 Patient encounter procedure CHI DURAN KILN PACKER - GLAZIER ARTIST [facility] Start: 09-02-2021 End: 09-02-2021 Patient encounter procedure CHI DURAN KILN PACKER - GLAZIER ARTIST [facility] Start: 08-26-2021 End: 08-26-2021 Patient encounter procedure ADONIS EUGENEC [facility] Start: 08-20-2021 End: 08-22-[address] DUC SCHERER MD [facility] Start: 08-09-2021 End: 08-09-[address] DUC SCHERER MD [facility] Start: 06-25-2021 End: 06-25-2021 Patient encounter procedure JOHN SAMUELS MD [facility] Procedures Date Procedure Procedure Detail Performing Clinician Start: 11-28-2024 MRI of brain without contrast Chi GARVEYC Work Phone: Start: 11-27-2024 Estimated creatinine clearance Chi Duran ELEVATING GRADER OPERATOR-C Work Phone: Start: 11-26-2024 Plain chest X-ray Janna Duran ELEVATING GRADER OPERATOR-C Work Phone: Start: 11-26-2024 CT angiography of he ad and neck Chi Duran ELEVATING GRADER OPERATOR-C Work Phone: Start: 11-26-2024 CT of head without contrast Chi Duran ELEVATING GRADER OPERATOR-C Work Phone: Start: 11-26-2024 Estimated creatinine clearance Chi Duran ELEVATING GRADER OPERATOR-C Work Phone: Start: 06-11-2024 PSA screening DERICK RASHID MD Comment on above: Result Comment: Deepak jauregui ECLELVIN methodology. According to the [place] [employer], Serum PSA should decrease and [...] of malignant disease. Performed By: #### A 1C, CBC, CMP, ADIFF, GFR, ANEU, LIPID, VIDH, [id number] #### [address] [address] #### PTH #### [place] [id number] Start: 06-09-2024 PSA screening CHI PHAM KILN PACKER - GLAZIER ARTIST Comment on above: Result Comment: Deepak jauregui ECLELVIN methodology. According to the [place] [employer], Serum PSA should decrease and [...] of malignant disease. Start: 07-28-2023 Echocardiography SEAN Wright ROGER KILN PACKER - GLAZIER ARTIST Comment on above: Summary: 1. Left ventricle: [...] 06-30-2023 Transcatheter aortic valve implantation CHI DURAN KILN PACKER - GLAZIER ARTIST Comment on above: Procedures performed : Temporary pacing. Right common femoral angiography. Ascending aortography. Transcatheter aortic valve replacement. SUMMARY: Successful placement of a 26 mm Paredes valve. Start: 05-20-2023 Cardiac catheterization CHI DURAN KILN PACKER [facility] Comment on above: SUMMARY: 1. Left ventricle: [...] excellent flow , diagonal now fills via reddy to lad. med mx only no complications [...] JOHN SAMUELS MD Comment on above: ISAIAS Plan of Treatment Date Care Activity Detail Author Start: 11-28-2024 Patient discharge [facility] Start: 11-26-2024 Following clinical p athway protocol [facility] Start: 11-26-2024 Aspiration precautions [facility] Start: 11-26-2024 Assessment of risk o f venous thromboembolism [facility] Start: 11-26-2024 Cardiac monitoring [facility] Start: 11-26-2024 Catheterization of vein [facility] Start: 11-26-2024 Consultation [facility] Start: 11-26-2024 Elevation of head of bed [facility] Start: 11-26-2024 Exercises [facility] Start: 11-26-2024 Fall prevention [facility] Start: 11-26-2024 Inhalation therapy procedure [facility] Start: 11-26-2024 Insertion of cathete r into peripheral vein [facility] Start: 11-26-2024 Introduction of urinary catheter [facility] Start: 11-26-2024 Measuring intake and output [facility] Start: 11-26-2024 Notification of physician [facility] Start: 11-26-2024 Patient referral to dietitian [facility] Start: 11-26-2024 Providing care accor ding to standard [facility] Start: 11-26-2024 Provision of activity privileges [facility] Start: 11-26-2024 Referral to occupati onal therapist [facility] Start: 11-26-2024 Referral to service [facility] Start: 11-26-2024 Speech therapy assessment [facility] Start: 11-26-2024 Telemedicine consult ation with patient [facility] Start: 11-26-2024 Tobacco use cessation education [facility] Start: 11-26-2024 End: 11-26-2024 [facility] Start: 11-26-2024 Hospital admission, emergency, from emergency room, medical nature [facility] Start: 11-26-2024 Verification routine [facility] Start: 11-26-2024 Admission procedure [facility] Start: 11-26-2024 Oxygen therapy [facility] Start: 11-26-2024 [facility] Cardiac event recording [facility] Patient referral [facility] Work Phone: Troponin T.cardiac [ Mass/volume] in Serum or Plasma by High sensitivity method [facility] Troponin T.cardiac [ Mass/volume] in Serum or Plasma by High sensitivity method [facility] Immunizations Immunization Date Immunization Notes Care Provider Fa cility 02-18-2024 SARS-CoV-2 (COVID-19 ) [id number] CHI DURAN KILN PACKER - GLAZIER ARTIST [facility] 01-21-2024 influenza virus vacc ine, unspecified formulation CHI DURAN KILN PACKER - GLAZIER ARTIST [facility] 08-30-2023 SARS-CoV-2 (COVID-19 ) mRNA-[id number] CHI DURAN KILN PACKER - GLAZIER ARTIST [facility] 04-17-2023 influenza virus vacc ine, unspecified formulation ABISAI MUNOZ MD [facility] 04-17-2023 RSV vaccine preF3, recombinant ABISAI MUNOZ MD [facility] 04-17-2023 SARS-CoV-2 (COVID-19 ) [id number] ABISAI MUNOZ MD [facility] 10-24-2022 SARS-CoV-2 (CV19)mRNA-1273 bivalent vac ABISAI MUNOZ MD [facility] 03-30-2022 influenza virus vacc ine, unspecified formulation ABISAI MUNOZ MD [facility] 02-22-2022 SARS-CoV-2 (CV19)mRNA-1273 bivalent vac ABISAI MUNOZ MD [facility] 09-19-2021 SARS-CoV-2 (COVID-19 ) mRNA-1273 vaccine ABISAI MUNOZ MD [facility] 07-07-[address] UDC SCHERER MD [facility] 04-23-2021 influenza virus vacc ine, unspecified formulation JOHN SAMUELS MD [facility] 03-22-2021 SARS-CoV-2 mRNA (tozinameran) vaccine JOHN SAMUELS MD [facility] 08-23-2020 SARS-CoV-2 mRNA (tozinameran) vaccine JOHN SAMUELS MD [facility] 08-02-2020 SARS-CoV-2 mRNA (tozinameran) vaccine JOHN SAMUELS MD [facility] Comment on above: Result Comment: 2020: [id number] 07-25-2020 SARS-CoV-2 mRNA (tozinameran) vaccine JOHN SAMUELS MD [facility] 02-03-2020 influenza virus vacc ine, H1N1, live JOHN SAMUELS MD [facility] 03-05-2019 influenza virus vacc ine, unspecified formulation JOHN SAMUELS MD [facility] 12-02-2018 zoster vaccine, live JOHN CRYSTAL MD [facility] 04-30-2018 pneumococcal polysaccharide vaccine, 23 valent JOHN SAMUELS MD [facility] 04-22-2018 influenza virus vacc ine, unspecified formulation JOHN SAMUELS MD [facility] 02-20-2018 influenza virus vacc ine, unspecified formulation JOHN SAMUELS MD [facility] 02-22-2017 influenza virus vacc ine, unspecified formulation JOHN SAMUELS MD [facility] 09-02-2016 pneumococcal polysaccharide vaccine, 23 valent JOHN SAMUELS MD [facility] 02-08-2016 influenza virus vacc ine, unspecified formulation JOHN SAMUELS MD [facility] 02-04-2016 influenza virus vacc ine, unspecified formulation JOHN SAMUELS MD [facility] 02-13-2015 influenza virus vacc ine, unspecified formulation JOHN SAMUELS MD [facility] 02-06-2015 pneumococcal conjuga te vaccine, 13 valent JOHN SAMUELS MD [facility] 03-05-2014 tetanus and diphther ia toxoids, adsorbed, preservative free, for adult use (2 Lf of tetanus toxoid and 2 Lf of diphtheria toxoid) [facility] 02-20-2014 influenza virus vacc ine, unspecified formulation JOHN SAMUELS MD [facility] 06-23-2013 tetanus toxoid, redu perla diphtheria toxoid, and acellular pertussis vaccine, adsorbed JOHN SAMUELS MD [facility] Payers Date Payer Category Payer Self-pay [id number] 2023 Medicare [id number] 2022 Unknown [id number] 2019 Private Health Insurance [id number] 2011 Medicare [id number] 1945 Unknown [id number] 2.16.8 40.1.150638.3.579.2.627 1945 Unknown [id number] 2.16.8 40.1.316140.3.579.2.627 1945 Unknown [id number] 2.16.8 40.1.511940.3.579.2.627 1945 Unknown [id number] 2.16.8 40.1.949557.3.579.2. 1945 Unknown [id number] 2.16.8 40.1.545171.3.579.2. 1945 Unknown [id number] 2.16.8 40.1.025090.3.579.2. 1945 Unknown [id number] 2.16.8 40.1.843262.3.579.2. 1945 Unknown [id number] 2.16.8 40.1.478649.3.579.2. 1945 Unknown [id number] 2.16.8 40.1.119749.3.579.2. 1945 Unknown [id number] 2.16.8 40.1.245426.3.579.2. 1945 Unknown [id number] 2.16.8 40.1.921798.3.579.2. 1945 Unknown [id number] 2.16.8 40.1.750832.3.579.2. 1945 Unknown [id number] 2.16.8 40.1.660791.3.579.2. 1945 Unknown [id number] 2.16.8 40.1.235007.3.579.2. 1945 Unknown [id number] 2.16.8 40.1.006090.3.579.2. 1945 Unknown [id number] 2.16. 840.1.503159.3.579.2 1946 Unknown [id number] 2.16. 840.1.630082.3.579.2 1945 Unknown [id number] 2.16. 840.1.140060.3.579.2.627 1946 Unknown [id number] 2.16.8 40.1.918511.3.579.2.627 1946 Unknown [id number] 2.16.8 40.1.030411.3.579.2.627 1946 Unknown [id number] 2.16.8 40.1.311422.3.579.2.627 1946 Unknown [id number] 2.16.8 40.1.388598.3.579.2.627 1946 Unknown [id number] 2.16.8 40.1.491799.3.579.2.627 1946 Unknown [id number] 2.16.8 40.1.614615.3.579.2.627 1945 Unknown [id number] 2.16.8 40.1.607927.3.579.2.627 Unknown [id number] 2.16.8 40.1.956979.3.579.2.462 Unknown [id number] 2.16.8 40.1.030445.3.579.2.462 Unknown [id number] 2.16.8 40.1.174498.3.579.2.462 Unknown [id number] 2.16.8 40.1.913242.3.579.2.462 Unknown [id number] 2.16.8 40.1.706417.3.579.2.462 Unknown [id number] 2.16.8 40.1.743274.3.579.2.462 Unknown [id number] 2.16.8 40.1.009182.3.579.2.462 Unknown [id number] 2.16.8 40.1.852541.3.579.2.462 Social History Date Type Detail Facility Start: 05-09-2019 End: 01-13-2025 Never smoked tobacco (finding) [facility] Comment on above: No smoke exposure Start: 1945 Sex Assigned At Male [facility] Start: 03-05-2014 Tobacco smoking stat [facility] Unknown if ever smoked [facility] Start: 05-17-2019 Sex Male (finding) [facility] Goals Date Patient Goal Desired Activity /State Functional Status Date Assessment Result Facility 11-28-2024 Functional status Ambulates [facility] Work Phone: 07-01-2023 Functional Status Room check performed [facility] 07-01-2023 Functional Status [facility] 07-01-2023 Functional Status [facility] 06-30-2023 Functional Status [facility] 06-30-2023 Functional Status [facility] 06-30-2023 Functional Status Patient Identi fied Identification band, Verbal [facility] 06-30-2023 Functional Status Maintained [facility] Mental Status Date Assessment Result Facility 11-28-2024 Cognitive function Voice/Name [facility] Work Phone: 11-26-2024 Cognitive function Voice/Name [facility] Work Phone: 07-01-2023 Mental Status Oriented x 4 [facility] 07-01-2023 Mental Status [facility] 06-30-2023 Mental Status [facility] 06-30-2023 Mental Status [facility] Clinical Notes 08-21-2021 to 11-28-2024 Note Date & Type Note Facility 11-28-2024 Discharge summary Note Date/Time November 28, 2024 11:01am [facility] Medical Records Department [address] [place] [address] Instructions for Home/Discharge Instructions 11/28/24 1041 MR#: [id number] Acct: [id number] Name: IVAN SALAS Rep #:[id number] : 1945 79 From: Thompson Payne DO PCP: GURU BushC Sta tus:ADM MARINO Discharge Instructions Diet Discharge Diet: No restrictions DC O2, CPAP, BIPAP needs Home O2 Discharge instructions: No Dressing / Incision Discharge Activity: Return to Normal Activity Weight Bearing Status: Full weight bearing Follow Up Care Test Results: Test results from this visit will be discussed in further detail at your follow-up appointment, if applicable. Discharge Plan Admission Admit Date/Time: 11/26/24 21:50 Primary Reason for Your Visit: TIA Attending Provider: Thompson Payne Primary Care Provider: Chi Duran NP Consulting Providers: Dick [place]; Zia Goldstein; Idalia Mitchell; Veronique Nice; Tori Rivera; Agusto Clay; Carissa Graham; Hernando Clifton; Ivan Rivera; Samuel Mills; Anabel Schmitt; Vinay Rubin; Myesha Erickson; Layo Pittman; Ottoniel Vital; Jarad Meyer; July Dumont; Yariel Lin; Yoli Tinoco; Trevor Cummins;Josefa Roberts Discharge Orders/Prescriptions Prescriptions: New clopidogrel 75 mg Tablet 75 mg PO DAILY Qty: 21 0RF ezetimibe [Zetia] 10 mg tablet 10 mg PO DAILY Qty: 30 0RF Continued metoprolol succinate 25 mg tablet extended release 24 hr 12.5 mg PO DAILY rosuvastatin 40 mg tablet 40 mg PO DAILY aspirin 81 mg capsule 81 mg PO DAILY tamsulosin 0.4 mg capsule 0.4 mg PO DAILY finasteride 5 mg tablet 5 mg PO DAILY cholecalciferol (vitamin D3) [Vitamin D3] 25 mcg (1,000 unit) capsule 1,000 unit PO QDAY Other Ambulatory Orders: 30 Day Event Recorder Preventi (Routine) Timeframe: 1 Day Facility: [facility] - Location: Cardiovascular Services Ordered By: Dr. Thompson Payne Referrals / Follow Up: Jones Hummel MD [Non-Staff -Ordering Privileges] - See Referral Note (as scheduled) Chi Duran NP, ELEVATING GRADER OPERATOR-C [Primary Care Provider] - Within 2 Weeks Disposition Disposition (needs filled in before D/C Order can be placed): Home, Self Care 11/28/24 1101<Electronically signed by Thompson Payne DO>Thompson Payne DO CC: Veronique Nice; Myesha Erickson; ISABELL Duran; Jarad Meyer; Tori Rivera MD; Idalia Mitchell MD; Dick Montana MD; Dr. Zia Goldstein MD; Dr. Josefa Roberts MD; Dr. Agusto Clay MD; Dr. Carissa Graham MD; Dr. Ivan Rivera MD; Dr. Hernando Clifton MD; Dr. Samuel Mills MD; Dr. Vinay Rubin DO; Dr. Ottoniel Vital MD; Dr. Layo Pittman MD; Dr. July Dumont MD; Dr. Yariel Lin MD; Dr. Yoli Tinoco MD; Anabel Schmitt DO; Trevor Cummins MD ~ Signed [facility] Work Phone: [phone] Discharge summary [facility] Medical Records Department [address] [place] [address] Instructions for Home/Discharge Instructions 11/28/24 1041 MR#: [id number] Acct: [id number] Name: IVAN SALAS Rep #:[id number] : 1945 79 From: Thompson Payne DO PCP: ISABELL Bush Sta tus:ADM MARINO Discharge Instructions Diet Discharge Diet: No restrictions DC O2, CPAP, BIPAP needs Home O2 Discharge instructions: No Dressing / Incision Discharge Activity: Return to Normal Activity Weight Bearing Status: Full weight bearing Follow Up Care Test Results: Test results from this visit will be discussed in further detail at your follow- up appointment, if applicable. Discharge Plan Admission Admit Date/Time: 11/26/24 21:50 Primary Reason for Your Visit: TIA Attending Provider: Thompson Payne Primary Care Provider: Chi Duran NP Consulting Providers: Dick Montana; Zia Goldstein; Idalia Mitchell; Veronique Nice; Tori Rivera; Agusto Clay; Carissa Graham; Hernando Clifton; Ivan Rivera; Samuel Mills; Anabel Schmitt; Vinay Rubin; Myesha Erickson; Layo Pittman; Ottoniel Vital; Jarad Meyer; July Dumont; Yariel Lin; Yoli Tinoco; Trevor Cummins;Josefa Roberts Discharge Orders/Prescriptions Prescriptions: New clopidogrel 75 mg Tablet 75 mg PO DAILY Qty: 21 0RF ezetimibe [Zetia] 10 mg tablet 10 mg PO DAILY Qty: 30 0RF Continued metoprolol succinate 25 mg tablet extended release 24 hr 12.5 mg PO DAILY rosuvastatin 40 mg tablet 40 mg PO DAILY aspirin 81 mg capsule 81 mg PO DAILY tamsulosin 0.4 mg capsule 0.4 mg PO DAILY finasteride 5 mg tablet 5 mg PO DAILY cholecalciferol (vitamin D3) [Vitamin D3] 25 mcg (1,000 unit) capsule 1,000 unit PO QDAY Other Ambulatory Orders: 30 Day Event Recorder Preventi (Routine) Timeframe: 1 Day Facility: [facility] - Location: Cardiovascular Services Ordered By: Dr. Thompson Payne Referrals / Follow Up: Jones Hummel MD [Non-Staff -Ordering Privileges] - See Referral Note (as scheduled) Chi Duran NP, ELEVATING GRADER OPERATOR-C [Primary Care Provider] - Within 2 Weeks Disposition Disposition (needs filled in before D/C Order can be placed): Home, Self Care 11/28/24 1101Mark Kerry DO CC: Veronique Nice; Myesha Erickson; ELEVATING GRADER OPERATOR-C Chi Duran; Jarad Meyer; Tori Rivera MD; Idalia Mitchell MD; Dick Montana MD; Dr. Zia Goldstein MD; Dr. Josefa Roberts MD; Dr. Agusto Clay MD; Dr. Carissa Graham MD; Dr. Ivan Rivera MD; Dr. Hernando Clifton MD; Dr. Samuel Mills MD; Dr. Vinay Rubin DO; Dr. Ottoniel Vital MD; Dr. Layo Pittman MD; Dr. July Dumont MD; Dr. Yariel Lin MD; Dr. Yoli Tinoco MD; Anabel Schmitt DO; Trevor Cummins MD ~ Signed [facility]06-09-2025 [facility] Medical Records Department [address] [place] [address] Discharge Summary 11/28/24 1101 MR#: [id number] Acct: [id number] Name: IVAN SALAS Rep #: [id number] : 1945 79 From: Thompson Payne DO PCP: ISABELL Bush Status:DIS MARINO Location: [place] [address] Providers Date of Admission: 11/26/24 Date of Discharge: 11/28/24 Primary Care Physician: ISABELL Bush Consultations 11/26/24 23:07 Consult: Tele-Neurology Routine Consulting Provider: [facility] Reason for Consult: Acute Ischemic Stroke/TIA EMERGENT Consult: No MD Notified: Yes Date Notified: 11/26/24 Time Notified: 23:41 Method of Notification: Answering Service Nursing Unit Staff Notify [facility] of Tele-Neurology Consult: Yes Reason For Visit: TIA/CVA Diagnosis Discharge Diagnosis (1) LUE weakness: Status: Acute Code(s): R29.898 - Other symptoms and signs involving the musculoskeletal system Plan 1. TIA-neurology has recommended the patient go on dual antiplatelet therapy and statin, other testing will be performed tomorrow, patient will have a 30-day event monitor ordered at the time of discharge. #2 hyperlipidemia-patient is on statin #3 BPH-patient is on Flomax and Proscar #4 essential hypertension-patient is on metoprolol Total clinical time spent by myself addressing the patient's medical issues, reviewing all of his data, and collaborating with patient's care team: 35 minutes Medications at Discharge Home Medications aspirin 81 mg capsule 81 mg PO DAILY heart health 11/26/24 cholecalciferol (vitamin D3) 25 mcg (1,000 unit) capsule (Vitamin D3) 1,000 unit PO QDAY supplement 11/26/24 finasteride 5 mg tablet 5 mg PO DAILY prostate 11/26/24 metoprolol succinate 25 mg tablet,extended release 24 hr 12.5 mg PO DAILY blood pressure 11/26/24 rosuvastatin 40 mg tablet 40 mg PO DAILY cholesterol 11/26/24 tamsulosin 0.4 mg capsule 0.4 mg PO DAILY prostate 11/26/24 clopidogrel 75 mg tablet 75 mg PO DAILY #21 tabs 11/28/24 ezetimibe 10 mg tablet (Zetia) 10 mg PO DAILY #30 tabs 11/28/24 Hospital Course Operations None Procedures 2-D Echocardiogram Summary of Care Provided Minutes Spent on Discharge: 31 Hospital Course: This 79-year-old white male was seen in the emergency room at [facility] with complaints of left upper extremity weakness in his hand. Initial ED evaluation showed his stroke scale to be 2, CT of the brain showed no acute intracranial findings, CT of the head and neck showed no large vessel occlusion, stroke team was called, neurologist did not recommend tenecteplase but did recommend placing the patient on aspirin and Plavix. Repeat NIH scale was 0, the patient was placed in observation status on PCU and was seen by PT and OT as well as speech therapy. Patient underwent an echocardiogram which was unremarkable and an MRI which showed no abnormality. It was recommended that the patient continue with dual antiplatelet therapy for 21 days then drop off his Plavix. He also was to remain on his statin, his LDL cholesterol was mildly elevated and Zetia was added to his regimen at the time of discharge. A 30-day Holter monitor was also ordered. On 11/28/2024, patient was seen and examined: On examination he appeared in good health and spirits. Vital signs as documented. Skin warm and dry and without overt rashes. Neck without JVD, neck was supple, trachea midline, thyroid was normal. Lungs clear bilaterally, normal air movement was noted. Heart exam notable for regular rhythm, normal sounds and absence of murmurs, rubs or gallops. Abdomen unremarkable and without evidence of organomegaly, masses, or abdominal aortic enlargement. Bowel sounds are present, abdomen is not distended. Extremities nonedematous, no cyanosis was noted, no clubbing was noted. Neuro: Cranial nerves II through XII are grossly intact, no focal motor deficits were noted, sensation to light touch and pinprick intact, motor exam 5/5 throughout. Psych: Patient is alert and oriented x3, he does not appear anxious or depressed, he does not appear agitated. Patient was discharged home in stable condition on 11/28/2024, a 30-day event monitor was ordered for the patient as an outpatient. Weight / BMI Weight Weight: 96.3 kg Body Mass Index (BMI) 28.0 ABG / Lab / Microbiology Data 11/27/24 04:00 11/27/24 04:00 Laboratory: Laboratory Results - last 24 hr 11/27/24 04:00: Hemoglobin A1c 5.6 Radiography Diagnostic Testing: Radiology Impression Brain MRI 11/28/24 08:00 IMPRESSION: No restricted diffusion. No acute process. Age-related changes. Called report to Jovita Whitmore RN at 10:30 AM. Negative, no hemorrhage. Reading Location: [facility]- (more content not included)...[facility]06-08-2025 Progress note Author Thompson [facility] Note Date/Time November 27, 2024 2:41p m [facility] Medical Records Department [address] [place] [address] Progress Note - Hospitalist 11/27/24 1439 MR#: [id number] Acct: [id number] Name: IVAN SALAS Rep #:[id number] : 1945 79 From: Thompson Payne DO PCP: ISABELL Bush tus:ADM MARINO Location: [place] [address] Reason for Visit Reason for Visit: Diagnoses Other symptoms and signs involving the musculoskeletal system (11/26/24) Subjective Subjective Patient was seen and examined today, had a long discussion with him and his wifeand daughter, I gave him the choice of being discharged on dual antiplatelet therapy and a statin to follow-up and get an echocardiogram and MRI as an outpatient and to follow-up with neurology. The other option was to stay here and get the testing done tomorrow-patient opted to stay here and get the MRI andechocardiogram performed tomorrow. I also talked him about having a 30-day Holter monitor placed as an outpatient and he agreed to this. Objective Data Objective Data Vital Signs: Vital Signs Temp Pulse Resp BP Pulse Ox O2 Del Method 98.1 F 65 14 125/71 H 100 Room Air 11/27/24 10:58 11/27/24 10:58 11/27/24 10:58 11/27/24 10:58 11/27/24 10:58 11/27/24 10:58 Oxygen Delivery Method Room Air Weight: 96.6 kg Body Mass Index (BMI) 28.0 Intake & Output: Intake and Output for Last 24 Hours 11/25/24 11/26/24 11/27/24 23:59 23:59 23:59 Intake Total 1000 / 1000 Balance 1000 / 1000 Lab / Micro Data 11/27/24 04:00 11/27/24 04:00 Labs: Laboratory Results - last 24 hr 11/26/24 20:49: POC Glucose 97 11/26/24 20:50: WBC 6.2, RBC 3.43 L, Hgb 12.0 L, Hct 34.6 L, MCV 100.9 H, MCH 35.0 H, MCHC 34.7, RDW Std Deviation 52.6 H, RDW Coeff of Michelle 14.2, Plt Count 159, MPV 8.7, Immature Gran % (Auto) 0.300, Neut % (Auto) 64.9, Lymph % (Auto) 22.9, [place] % (Auto) 9.3, Eos % (Auto) 2.4, Baso % (Auto) 0.2, Absolute Neuts (auto) 4.0, Absolute Lymphs (auto) 1.41, Nucleated RBC % 0, PT 13.8, INR 1.0, APTT 26.8, Sodium 138, Potassium 4.1, Chloride 103, Carbon Dioxide 23.4, Anion Gap 12, BUN 33 H, Creatinine 2.24 H, Estim Creat Clear Calc 33.36 L, Est GFR (MDRD) Non-Af 29 L, BUN/Creatinine Ratio 14.7, Glucose 96, Calcium 9.7, Magnesium 2.4 H, Troponin T High Sens 35 H 11/26/24 23:12: Troponin T Hi Sens 2 Hr 34 H 11/27/24 01:03: Troponin T Hi Sens 4Hr 34 H 11/27/24 04:00: WBC 3.4 L, RBC 2.89 L, Hgb 10.0 L, Hct 29.1 L, MCV 100.7 H, MCH 34.6 H, MCHC 34.4, RDW Std Deviation 51.3 H, RDW Coeff of Michelle 14.1, Plt Count 125 L, MPV 9.0, Immature Gran % (Auto) 0.300, Neut % (Auto) 66.1, Lymph % (Auto)21.6, [place] % (Auto) 8.2, Eos % (Auto) 3.5, Baso % (Auto) 0.3, Absolute Neuts (auto) 2.3, Absolute Lymphs (auto) 0.74 L, Nucleated RBC % 0, Sodium 138, Potassium 4.0, Chloride 105, Carbon Dioxide 22.3, Anion Gap 11, BUN 30 H, Creatinine 2.01 H, Estim Creat Clear Calc 37.09 L, Est GFR (MDRD) Non-Af 33 L, BUN/Creatinine Ratio 14.9, Glucose 96, Calcium 9.0, Total Bilirubin 0.61, AST 17, ALT 14, Alkaline Phosphatase 81, Total Protein 6.0, Albumin 3.8, Globulin 2.2, Albumin/Globulin Ratio 1.7, Triglycerides 101, Cholesterol 133, LDL Cholesterol, Calc 75, VLDL Cholesterol 20, HDL Cholesterol 38 L, Cholesterol/HDLRatio 3.54, TSH 1.270 Radiography Diagnostic Testing: Radiology Impression Brain CT 11/26/24 20:54 IMPRESSION: No acute intracranial finding. Reading Location: [facility] Head/Neck CTA 11/26/24 20:54 IMPRESSION: 1. No large vessel occlusion, aneurysm or AVM. 2. Mild scattered calcific plaque as described. Dr. Diaz discussed these findings via telephone with Dr. Estrada at 9:30 p.m.on 11/26/2024. Reading Location: [facility] Chest X-Ray 11/26/24 21:25 IMPRESSION: No Acute Findings. Reading Location: [facility] Physical Exam Const alert, oriented x3, no apparent distress, average body habitus and healthy appearing General Appearance: cooperative, well kempt and well developed Orientation / Consciousness: awake, oriented to person, oriented to place and oriented to time HEENT normocephalic and moist oral mucous membranes Eyes PERRL, EOMs intact bilaterally and conjunctivae normal Neck supple, no JVD, thyroid normal and no carotid bruits General: trachea midline Resp normal respiratory effort and clear to auscultation bilaterally Auscultation: Negative for rales, rhonchi or wheezes Cardio regular rate, regular rhythm, no murmurs, no rub and no gallops GI normal to inspection, nondistended, normoactive bowel sounds, soft to palpation,non-tender and non-distended Extremity no clubbing, cyanosis or edema Skin no rashes or lesions noted General Skin Exam: no breakdown Neuro oriented x3, CN's II-XII intact bilaterally, moves all extremities, no focal motor deficits and no sensory deficits noted Sensorium / Orientation: awake and alert Speech: speech normal Psych affect normal Assessment & Plan Assessment/Plan (1) LUE weakness: PLAN: Plan 1. TIA-neurology has recommended the patient go on dual antiplatelet therapy and statin, other testing will be performed tomorrow, patient will have a 30- dayevent monitor ordered at the time of discharge. #2 hyperlipidemia-patient is on statin #3 BPH-patient is on Flomax and Proscar #4 essential hypertension-patient is on metoprolol Total clinical time spent by myself addressing the patient's medical issues, reviewing all of his data, and collaborating with patient's care team: 35 minutes Charges/Coding Visit Charges Inpatient E&M: 28520 Subs Hosp L2 NIHSS NIHSS Nursing Documentation NIHSS Nursing Documentation: NIHSS: Ischemic Stroke/TIA Start: 11/26/24 23:07 Text: For PCU Patients: NIH and Neuro Check every 4 Status: Active hours, PRN and with change in RN caregiver. Freq: [id number] Protocol: Activity Type Activity Date Activity User E-sign Co-sign Detail Recorded Client Recorded Date Recorded By Document 11/27/24 11:00 TWIN [id number] 11/27/24 12:09 TWIN 11/27/24 11:00 NIH Stroke Scale [NIHSS] A score of 0 is normal or asymptomatic . Total possible score is 42. Inpatient: RN or Physician to activate a stroke alert for onset of new stroke symptoms or with NIHSS increase >/= 3 points. Following change in neurological status, NIHSS will be performed per physician order or more frequently PRN. -1a. Level of Consciousness 0 - Alert; keenly responsive -1b. LOC Questions 0 - Answers BOTH questions correctly -1c. LOC Commands 0 - Performs BOTH tasks correctly -2. Best Gaze 0 - Normal -3. Visual 0 - No visual loss -4. Facial Palsy 0 - Normal symmetrical movements -5a. Left Arm 0 - No drift; arm holds 90 ( or 45) degrees for full 10 seconds -5b. Right Arm 0 - No drift; arm holds 90 ( or 45) degrees for full 10 seconds -6a. Left Leg 0 - No drift; leg holds 30- degree position for full 5 seconds -6b. Right Leg 0 - No drift; leg holds 30- degree position for full 5 seconds -7. Limb Ataxia 0 - Absent -8. Sensory 0 - Normal; no sensory loss -9. Best Language 0 - No aphasia; normal -10. Dysarthria 0 - Normal -11. Extinction and Inattention 0 - No abnormality -Total 0 Query Text:A score of 0 is normal or asymptomatic. Total possible score is 42 . ED: Notify Physician for NIHSS increase by > / = 3 points. Inpatient: RN or Physician to activate a stroke alert for NIHSS increase of > / = 3 points. Coma Scale [Assess] -Eye Opening Spontaneous -Motor Obeys Commands -Verbal Oriented [Total] -Coma Scale Total 15 11/27/24 1441 <Electronically signed by Thompson Payne DO> Cosigner Signature (if applicable): CC: ~ Signed [facility] Work Phone: [phone]) 847-364506-08-2025 Progress note [facility] Medical Records Department [address] [place] [id number] Progress Note - Hospitalist 11/27/24 1439 MR#: [id number] Acct: [id number] Name: IVAN SALAS Rep #:[id number] : 1945 79 From: Thompson Payne DO PCP: ISABELL Bush Sta tus:ADM MARINO Location: [place] [address] Reason for Visit Reason for Visit: Diagnoses Other symptoms and signs involving the musculoskeletal system (11/26/24) Subjective Subjective Patient was seen and examined today, had a long discussion with him and his wifeand daughter, I gave him the choice of being discharged on dual antiplatelet therapy and a statin to follow-up and get an echocardiogram and MRI as an outpatient and to follow-up with neurology. The other option was to stay here and get the testing done tomorrow-patient opted to stay here and get the MRI andechocardiogram performed tomorrow. I also talked him about having a 30-day Holter monitor placed as an outpatient and he agreed to this. Objective Data Objective Data Vital Signs: Vital Signs Temp Pulse Resp BP Pulse Ox O2 Del Method 98.1 F 65 14 125/71 H 100 Room Air 11/27/24 10:58 11/27/24 10:58 11/27/24 10:58 11/27/24 10:58 11/27/24 10:58 11/27/24 10:58 Oxygen Delivery Method Room Air Weight: 96.6 kg Body Mass Index (BMI) 28.0 Intake & Output: Intake and Output for Last 24 Hours 11/25/24 11/26/24 11/27/24 23:59 23:59 23:59 Intake Total 1000 / 1000 Balance 1000 / 1000 Lab / Micro Data 11/27/24 04:00 11/27/24 04:00 Labs: Laboratory Results - last 24 hr 11/26/24 20:49: POC Glucose 97 11/26/24 20:50: WBC 6.2, RBC 3.43 L, Hgb 12.0 L, Hct 34.6 L, MCV 100.9 H, MCH 35.0 H, MCHC 34.7, RDW Std Deviation 52.6 H, RDW Coeff of Michelle 14.2, Plt Count 159, MPV 8.7, Immature Gran % (Auto) 0.300,Neut % (Auto) 64.9, Lymph % (Auto) 22.9, [place] % (Auto) 9.3, Eos % (Auto) 2.4, Baso % (Auto) 0.2, Absolute Neuts (auto) 4.0, Absolute Lymphs (auto) 1.41, Nucleated RBC % 0, PT 13.8, INR 1.0, APTT 26.8, Sodium 138, Potassium 4.1, Chloride 103, Carbon Dioxide 23.4, Anion Gap 12, BUN 33 H, Creatinine 2.24 H, Estim Creat Clear Calc 33.36 L, Est GFR (MDRD) Non-Af 29 L, BUN/Creatinine Ratio 14.7, Glucose 96, Calcium 9.7, Magnesium 2.4 H, Troponin T High Sens 35 H 11/26/24 23:12: Troponin T Hi Sens 2 Hr 34 H 11/27/24 01:03: Troponin T Hi Sens 4Hr 34 H 11/27/24 04:00: WBC 3.4 L, RBC 2.89 L, Hgb 10.0 L, Hct 29.1 L, MCV 100.7 H, MCH 34.6 H, MCHC 34.4, RDW Std Deviation 51.3 H, RDW Coeff of Michelle 14.1, Plt Count 125 L, MPV 9.0, Immature Gran % (Auto) 0.300, Neut % (Auto) 66.1, Lymph % (Auto)21.6, [place] % (Auto) 8.2, Eos % (Auto) 3.5, Baso % (Auto) 0.3,Absolute Neuts (auto) 2.3, Absolute Lymphs (auto) 0.74 L, Nucleated RBC % 0, Sodium 138, Potassium 4.0, Chloride 105, Carbon Dioxide 22.3, Anion Gap 11, BUN 30 H, Creatinine 2.01 H, Estim Creat ClearCalc 37.09 L, Est GFR (MDRD) Non-Af 33 L, BUN/Creatinine Ratio 14.9, Glucose 96, Calcium 9.0, TotalBilirubin 0.61, AST 17, ALT 14, Alkaline Phosphatase 81, Total Protein 6.0, Albumin 3.8, Globulin 2.2, Albumin/Globulin Ratio 1.7, Triglycerides 101, Cholesterol 133, LDL Cholesterol, Calc 75, VLDL Cholesterol 20, HDL Cholesterol 38 L, Cholesterol/HDLRatio 3.54, TSH 1.270 Radiography Diagnostic Testing: Radiology Impression Brain CT 11/26/24 20:54 IMPRESSION: No acute intracranial finding. Reading Location: [id number] Head/Neck CTA 11/26/24 20:54 IMPRESSION: 1. No large vessel occlusion, aneurysm or AVM. 2. Mild scattered calcific plaque as described. Dr. Diaz discussed these findings via telephone with Dr. Estrada at 9:30 p.m.on 11/26/2024. Reading Location: [facility] Chest X-Ray 11/26/24 21:25 IMPRESSION: No Acute Findings. Reading Location: [facility] Physical Exam Const alert, oriented x3, no apparent distress, average body habitus and healthy appearing General Appearance: cooperative, well kempt and well developed Orientation / Consciousness: awake, oriented to person, oriented to place and oriented to time HEENT normocephalic and moist oral mucous membranes Eyes PERRL, EOMs intact bilaterally and conjunctivae normal Neck supple, no JVD, thyroid normal and no carotid bruits General: trachea midline Resp normal respiratory effort and clear to auscultation bilaterally Auscultation: Negative for rales, rhonchi or wheezes Cardio regular rate, regular rhythm, no murmurs, no rub and no gallops GI normal to inspection, nondistended, normoactive bowel sounds, soft to palpation,non-tender and non-distended Extremity no clubbing, cyanosis or edema Skin no rashes or lesions noted General Skin Exam: no breakdown Neuro oriented x3, CN's II-XII intact bilaterally, moves all extremities, no focal motor deficits and no sensory deficits noted Sensorium / Orientation: awake and alert Speech: speech normal Psych affect normal Assessment & Plan Assessment/Plan (1) LUE weakness: PLAN: Plan 1. TIA-neurology has recommended the patient go on dual antiplatelet therapy and statin, other testing will be performed tomorrow, patient will have a 30- dayevent monitor ordered at the time of discharge. #2 hyperlipidemia-patient is on statin #3 BPH-patient is on Flomax and Proscar #4 essential hypertension-patient is on metoprolol Total clinical time spent by myself addressing the patient's medical issues, reviewing all of his data, and collaborating with patient's care team: 35 minutes Charges/Coding Visit Charges Inpatient E&M: 48539 Subs Hosp L2 NIHSS NIHSS Nursing Documentation NIHSS Nursing Documentation: NIHSS: Ischemic Stroke/TIA Start: 11/26/24 23:07 Text: For PCU Patients: NIH and Neuro Check every 4 Status: Active hours, PRN and with change in RN caregiver. Freq: [id number] Protocol: Activity Type Activity Date Activity User E-sign Co-sign Detail Recorded Client Recorded Date Recorded By Document 11/27/24 11:00 TWIN [id number] 11/27/24 12:09 TWIN 11/27/24 11:00 NIH Stroke Scale [NIHSS] A score of 0 is normal or asymptomatic . Total possible score is 42. Inpatient: RN or Physician to activate a stroke alert for onset of new stroke symptoms or with NIHSS increase >/= 3 points. Following change in neurological status, NIHSS will be performed per physician order or more frequently PRN. -1a. Level of Consciousness 0 - Alert; keenly responsive -1b. LOC Questions 0 - Answers BOTH questions correctly -1c. LOC Commands 0 - Performs BOTH tasks correctly -2. Best Gaze 0 - Normal -3. Visual 0 - No visual loss -4. Facial Palsy 0 - Normal symmetrical movements -5a. Left Arm 0 - No drift; arm holds 90 ( or 45) degrees for full 10 seconds -5b. Right Arm 0 - No drift; arm holds 90 ( or 45) degrees for full 10 seconds -6a. Left Leg 0 - No drift; leg holds 30- degree position for full 5 seconds -6b. Right Leg 0 - No drift; leg holds 30- degree position for full 5 seconds -7. Limb Ataxia 0 - Absent -8. Sensory 0 - Normal; no sensory loss -9. Best Language 0 - No aphasia; normal -10. Dysarthria 0 - Normal -11. Extinction and Inattention 0 - No abnormality -Total 0 Query Text:A score of 0 is normal or asymptomatic. Total possible score is 42 . ED: Notify Physician for NIHSS increase by > / = 3 points. Inpatient: RN or Physician to activate a stroke alert for NIHSS increase of > / = 3 points. Coma Scale [Assess] -Eye Opening Spontaneous -Motor Obeys Commands -Verbal Oriented [Total] -Coma Scale Total 15 11/27/24 1441 Cosigner Signature (if applicable): CC: ~ Signed [facility]06-08-2025 Progress note Author Yoli Tinoco [facility] Note Date/Time November 27, 2024 10:12 am [facility] Medical Records Department [address] [place] [address] Progress Note - Neurology 11/27/24 0957 MR#: [id number] Acct: [id number] Name: IVAN SALAS Rep #:[id number] : 1945 79 From: Yoli Tinoco MD PCP: Chi Duran, ISABELL Bates tus:ADM MARINO Location: [place] [address] Objective Data Objective Data Vital Signs: Vital Signs Temp Pulse Resp BP Pulse Ox O2 Del Method 97.9 F 63 14 119/78 95 Room Air 11/27/24 07:03 11/27/24 07:03 11/27/24 07:03 11/27/24 07:03 11/27/24 07:03 11/27/24 08:23 Oxygen Delivery Method Room Air Weight: 96.6 kg Body Mass Index (BMI) 28.0 Lab / Micro Data 11/27/24 04:00 11/27/24 04:00 Labs: Laboratory Results - last 24 hr 11/26/24 20:49: POC Glucose 97 11/26/24 20:50: WBC 6.2, RBC 3.43 L, Hgb 12.0 L, Hct 34.6 L, MCV 100.9 H, MCH 35.0 H, MCHC 34.7, RDW Std Deviation 52.6 H, RDW Coeff of Michelle 14.2, Plt Count 159, MPV 8.7, Immature Gran % (Auto) 0.300, Neut % (Auto) 64.9, Lymph % (Auto) 22.9, [place] % (Auto) 9.3, Eos % (Auto) 2.4, Baso % (Auto) 0.2, Absolute Neuts (auto) 4.0, Absolute Lymphs (auto) 1.41, Nucleated RBC % 0, PT 13.8, INR 1.0, APTT 26.8, Sodium 138, Potassium 4.1, Chloride 103, Carbon Dioxide 23.4, Anion Gap 12, BUN 33 H, Creatinine 2.24 H, Estim Creat Clear Calc 33.36 L, Est GFR (MDRD) Non-Af 29 L, BUN/Creatinine Ratio 14.7, Glucose 96, Calcium 9.7, Magnesium 2.4 H, Troponin T High Sens 35 H 11/26/24 23:12: Troponin T Hi Sens 2 Hr 34 H 11/27/24 01:03: Troponin T Hi Sens 4Hr 34 H 11/27/24 04:00: WBC 3.4 L, RBC 2.89 L, Hgb 10.0 L, Hct 29.1 L, MCV 100.7 H, MCH 34.6 H, MCHC 34.4, RDW Std Deviation 51.3 H, RDW Coeff of Michelle 14.1, Plt Count 125 L, MPV 9.0, Immature Gran % (Auto) 0.300, Neut % (Auto) 66.1, Lymph % (Auto)21.6, [place] % (Auto) 8.2, Eos % (Auto) 3.5, Baso % (Auto) 0.3, Absolute Neuts (auto) 2.3, Absolute Lymphs (auto) 0.74 L, Nucleated RBC % 0, Sodium 138, Potassium 4.0, Chloride 105, Carbon Dioxide 22.3, Anion Gap 11, BUN 30 H, Creatinine 2.01 H, Estim Creat Clear Calc 37.09 L, Est GFR (MDRD) Non-Af 33 L, BUN/Creatinine Ratio 14.9, Glucose 96, Calcium 9.0, Total Bilirubin 0.61, AST 17, ALT 14, Alkaline Phosphatase 81, Total Protein 6.0, Albumin 3.8, Globulin 2.2, Albumin/Globulin Ratio 1.7, Triglycerides 101, Cholesterol 133, LDL Cholesterol, Calc 75, VLDL Cholesterol 20, HDL Cholesterol 38 L, Cholesterol/HDLRatio 3.54, TSH 1.270 Radiography Diagnostic Testing: Radiology Impression Brain CT 11/26/24 20:54 IMPRESSION: No acute intracranial finding. Reading Location: [facility] Head/Neck CTA 11/26/24 20:54 IMPRESSION: 1. No large vessel occlusion, aneurysm or AVM. 2. Mild scattered calcific plaque as described. Dr. Diaz discussed these findings via telephone with Dr. Estrada at 9:30 p.m.on 11/26/2024. Reading Location: [facility] Chest X-Ray 11/26/24 21:25 IMPRESSION: No Acute Findings. Reading Location: [facility] Physical Exam Neuro Neuro Narrative: Neurological examination: General: The patient appears nutritionally appropriate, well-groomed, and appears comfortable in no acute distress. Mental Status: The patient?s mental status was normal including orientation. Cranial nerves: Visual montesinos full, extra-ocular motion was intact. Face motion symmetric. Bilateral shoulder shrugwas intact. Tongue was midline with normal movement. There was no dysarthria. Motor: Normal strength in all four extremities. No pronator drift. Sensation: Intact light touch bilaterally. Coordination: Bilateral finger to nose was normal. There was no dysmetria. Gait: Deferred. Subject: Neurology Subjective Patient feels left arm is back to normal this AM. He asked if he could dischargehome today. Assessment and Plan: Stroke Assessment/Plan IVAN SALAS is a 79 year old RH male with history of HTN, HL, CAD s/p CABG on Asa who on 11/26/24 at 830p developed left arm weakness. He presented to [facility] where NIHSS-0. CT brain negative. CT angiogram head/neck negative. LDL 119. Episode lasted 3 hour and then resolved. He was loaded with dAPT in ER. He is on Asa/plavix, liptor 80, and lovenox SQ. Neurological examination shows nonfocal exam, NIHSS-0. ASSESSMENT/PLAN: TIA 1) Recommend MRI and TTE to complete TIA work-up. If patient declines inpatient stay can order as outpatient 2) Agree with dAPT. Continue daily anti-platelet medication dAPT (Asa/plavix x 21 days per [facility] protocol) and then discontinue Plavix and continue Asa only thereafter 3) Continue vascular risk factor modification. On lipitor 80. 3) Follow-up in outpatient neurology clinic Primary team messaged recommendations on backline. Yoli Tinoco MD NIHSS NIHSS Nursing Documentation NIHSS Nursing Documentation: NIHSS: Ischemic Stroke/TIA Start: 11/26/24 23:07 Text: For PCU Patients: NIH and Neuro Check every 4 Status: Active hours, PRN and with change in RN caregiver. Freq: [id number] Protocol: Activity Type Activity Date Activity User E-sign Co-sign Detail Recorded Client Recorded Date Recorded By Document 11/27/24 07:03 RADHA [id number] 11/27/24 07:03 EY 06/08/25 07:03 NIH Stroke Scale [NIHSS] A score of 0 is normal or asymptomatic . Total possible score is 42. Inpatient: RN or Physician to activate a stroke alert for onset of new stroke symptoms or with NIHSS increase >/= 3 points. Following change in neurological status, NIHSS will be performed per physician order or more frequently PRN. -1a. Level of Consciousness 0 - Alert; keenly responsive -1b. LOC Questions 0 - Answers BOTH questions correctly -1c. LOC Commands 0 - Performs BOTH tasks correctly -2. Best Gaze 0 - Normal -3. Visual 0 - No visual loss -4. Facial Palsy 0 - Normal symmetrical movements -5a. Left Arm 0 - No drift; arm holds 90 ( or 45) degrees for full 10 seconds -5b. Right Arm 0 - No drift; arm holds 90 ( or 45) degrees for full 10 seconds -6a. Left Leg 0 - No drift; leg holds 30- degree position for full 5 seconds -6b. Right Leg 0 - No drift; leg holds 30- degree position for full 5 seconds -7. Limb Ataxia 0 - Absent -8. Sensory 0 - Normal; no sensory loss -9. Best Language 0 - No aphasia; normal -10. Dysarthria 0 - Normal -11. Extinction and Inattention 0 - No abnormality -Total 0 Query Text:A score of 0 is normal or asymptomatic. Total possible score is 42 . ED: Notify Physician for NIHSS increase by > / = 3 points. Inpatient: RN or Physician to activate a stroke alert for NIHSS increase of > / = 3 points. Coma Scale [Assess] -Eye Opening Spontaneous -Motor Obeys Commands -Verbal Oriented [Total] -Coma Scale Total 15 NIHSS 1a. Level of Consciousness: 0 - Alert; keenly responsive 1b. LOC Questions: 0 - Answers BOTH questions correctly 1c. LOC Commands: 0 - Performs BOTH tasks correctly 2. Best Gaze: 0 - Normal 3. Visual: 0 - No visual loss 4. Facial Palsy: 0 - Normal symmetrical movements 5a. Left Arm: 0 - No drift; arm holds 90 (or 45) degrees for full 10 seconds 5b. Right Arm: 0 - No drift; arm holds 90 (or 45) degrees for full 10 seconds 6a. Left Le - No drift; leg holds 30-degree position for full 5 seconds 6b. Right Le - No drift; leg holds 30-degree position for full 5 seconds 7. Limb Ataxia: 0 - Absent 8. Sensory: 0 - Normal; no sensory loss 9. Best Language: 0 - No aphasia; normal 10. Dysarthria: 0 - Normal 11. Extinction and Inattention: 0 - No abnormality Total: 0 11/27/24 1012 <Electronically signed by Yoli Tinoco MD> Cosigner Signature (if applicable): CC: ~ Signed [facility] Work Phone: 1(520) 114-193706-08-2025 Progress note [facility] Medical Records Department [address] [place] [address] Progress Note - Neurology 11/27/24 0957 MR#: [id number] Acct: [id number] Name: IVAN SALAS Rep #:[id number] : 1945 79 From: Yoli Tinoco MD PCP: ISABELL Bush Sta tus:ADM MARINO Location: [place] [address] Objective Data Objective Data Vital Signs: Vital Signs Temp Pulse Resp BP Pulse Ox O2 Del Method 97.9 F 63 14 119/78 95 Room Air 11/27/24 07:03 11/27/24 07:03 11/27/24 07:03 11/27/24 07:03 11/27/24 07:03 11/27/24 08:23 Oxygen Delivery Method Room Air Weight: 96.6 kg Body Mass Index (BMI) 28.0 Lab / Micro Data 11/27/24 04:00 11/27/24 04:00 Labs: Laboratory Results - last 24 hr 11/26/24 20:49: POC Glucose 97 11/26/24 20:50: WBC 6.2, RBC 3.43 L, Hgb 12.0 L, Hct 34.6 L, MCV 100.9 H, MCH 35.0 H, MCHC 34.7, RDW Std Deviation 52.6 H, RDW Coeff of Michelle 14.2, Plt Count 159, MPV 8.7, Immature Gran % (Auto) 0.300,Neut % (Auto) 64.9, Lymph % (Auto) 22.9, [place] % (Auto) 9.3, Eos % (Auto) 2.4, Baso % (Auto) 0.2, Absolute Neuts (auto) 4.0, Absolute Lymphs (auto) 1.41, Nucleated RBC % 0, PT 13.8, INR 1.0, APTT 26.8, Sodium 138, Potassium 4.1, Chloride 103, Carbon Dioxide 23.4, Anion Gap 12, BUN 33 H, Creatinine 2.24 H, Estim Creat Clear Calc 33.36 L, Est GFR (MDRD) Non-Af 29 L, BUN/Creatinine Ratio 14.7, Glucose 96, Calcium 9.7, Magnesium 2.4 H, Troponin T High Sens 35 H 11/26/24 23:12: Troponin T Hi Sens 2 Hr 34 H 11/27/24 01:03: Troponin T Hi Sens 4Hr 34 H 11/27/24 04:00: WBC 3.4 L, RBC 2.89 L, Hgb 10.0 L, Hct 29.1 L, MCV 100.7 H, MCH 34.6 H, MCHC 34.4, RDW Std Deviation 51.3 H, RDW Coeff of Michelle 14.1, Plt Count 125 L, MPV 9.0, Immature Gran % (Auto) 0.300, Neut % (Auto) 66.1, Lymph % (Auto)21.6, [place] % (Auto) 8.2, Eos % (Auto) 3.5, Baso % (Auto) 0.3,Absolute Neuts (auto) 2.3, Absolute Lymphs (auto) 0.74 L, Nucleated RBC % 0, Sodium 138, Potassium 4.0, Chloride 105, Carbon Dioxide 22.3, Anion Gap 11, BUN 30 H, Creatinine 2.01 H, Estim Creat ClearCalc 37.09 L, Est GFR (MDRD) Non-Af 33 L, BUN/Creatinine Ratio 14.9, Glucose 96, Calcium 9.0, TotalBilirubin 0.61, AST 17, ALT 14, Alkaline Phosphatase 81, Total Protein 6.0, Albumin 3.8, Globulin 2.2, Albumin/Globulin Ratio 1.7, Triglycerides 101, Cholesterol 133, LDL Cholesterol, Calc 75, VLDL Cholesterol 20, HDL Cholesterol 38 L, Cholesterol/HDLRatio 3.54, TSH 1.270 Radiography Diagnostic Testing: Radiology Impression Brain CT 11/26/24 20:54 IMPRESSION: No acute intracranial finding. Reading Location: [id number] Head/Neck CTA 11/26/24 20:54 IMPRESSION: 1. No large vessel occlusion, aneurysm or AVM. 2. Mild scattered calcific plaque as described. Dr. Diaz discussed these findings via telephone with Dr. Estrada at 9:30 p.m.on 11/26/2024. Reading Location: [facility] Chest X-Ray 11/26/24 21:25 IMPRESSION: No Acute Findings. Reading Location: [facility] Physical Exam Neuro Neuro Narrative: Neurological examination: General: The patient appears nutritionally appropriate, well-groomed, and appears comfortable in noacute distress. Mental Status: The patient?s mental status was normal including orientation. Cranial nerves: Visual montesinos full, extra-ocular motion was intact. Face motion symmetric. Bilateral shoulder shrugwas intact. Tongue was midline with normal movement. There was no dysarthria. Motor: Normalstrength in all four extremities. No pronator drift. Sensation: Intact light touch bilaterally. Coordination: Bilateral finger to nose was normal. There was no dysmetria. Gait: Deferred. Subject: Neurology Subjective Patient feels left arm is back to normal this AM. He asked if he could dischargehome today. Assessment and Plan: Stroke Assessment/Plan IVAN SALAS is a 79 year old RH male with history of HTN, HL, CAD s/p CABG on Asa who on 11/26/24 at 830p developed left arm weakness. He presented to [facility] ER where NIHSS-0. CT brain negative. CT angiogram head/neck negative. LDL 119. Episode lasted 3 hour and then resolved. He was loaded with dAPT in ER. He is on Asa/plavix, liptor 80, and lovenox SQ. Neurological examination shows nonfocal exam, NIHSS-0. ASSESSMENT/PLAN: TIA 1) Recommend MRI and TTE to complete TIA work-up. If patient declines inpatient stay can order as outpatient 2) Agree with dAPT. Continue daily anti-platelet medication dAPT (Asa/plavix x 21 days per [facility] protocol) and then discontinue Plavix and continue Asa only thereafter 3) Continue vascular risk factor modification. On lipitor 80. 3) Follow-up in outpatient neurology clinic Primary team messaged recommendations on backline. Yoli Tinoco MD NIHSS NIHSS Nursing Documentation NIHSS Nursing Documentation: NIHSS: Ischemic Stroke/TIA Start: 11/26/24 23:07 Text: For PCU Patients: NIH and Neuro Check every 4 Status: Active hours, PRN and with change in RN caregiver. Freq: [id number] Protocol: Activity Type Activity Date Activity User E-sign Co-sign Detail Recorded Client Recorded Date Recorded By Document 11/27/24 07:03 EY [id number] 11/27/24 07:03 EY 11/27/24 07:03 NIH Stroke Scale [NIHSS] A score of 0 is normal or asymptomatic . Total possible score is 42. Inpatient: RN or Physician to activate a stroke alert for onset of new stroke symptoms or with NIHSS increase >/= 3 points. Following change in neurological status, NIHSS will be performed per physician order or more frequently PRN. -1a. Level of Consciousness 0 - Alert; keenly responsive -1b. LOC Questions 0 - Answers BOTH questions correctly -1c. LOC Commands 0 - Performs BOTH tasks correctly -2. Best Gaze 0 - Normal -3. Visual 0 - No visual loss -4. Facial Palsy 0 - Normal symmetrical movements -5a. Left Arm 0 - No drift; arm holds 90 ( or 45) degrees for full 10 seconds -5b. Right Arm 0 - No drift; arm holds 90 ( or 45) degrees for full 10 seconds -6a. Left Leg 0 - No drift; leg holds 30- degree position for full 5 seconds -6b. Right Leg 0 - No drift; leg holds 30- degree position for full 5 seconds -7. Limb Ataxia 0 - Absent -8. Sensory 0 - Normal; no sensory loss -9. Best Language 0 - No aphasia; normal -10. Dysarthria 0 - Normal -11. Extinction and Inattention 0 - No abnormality -Total 0 Query Text:A score of 0 is normal or asymptomatic. Total possible score is 42 . ED: Notify Physician for NIHSS increase by > / = 3 points. Inpatient: RN or Physician to activate a stroke alert for NIHSS increase of > / = 3 points. Coma Scale [Assess] -Eye Opening Spontaneous -Motor Obeys Commands -Verbal Oriented [Total] -Coma Scale Total 15 NIHSS 1a. Level of Consciousness: 0 - Alert; keenly responsive 1b. LOC Questions: 0 - Answers BOTH questions correctly 1c. LOC Commands: 0 - Performs BOTH tasks correctly 2. Best Gaze: 0 - Normal 3. Visual: 0 - No visual loss 4. Facial Palsy: 0 - Normal symmetrical movements 5a. Left Arm: 0 - No drift; arm holds 90 (or 45) degrees for full 10 seconds 5b. Right Arm: 0 - No drift; arm holds 90 (or 45) degrees for full 10 seconds 6a. Left Le - No drift; leg holds 30-degree position for full 5 seconds 6b. Right Le - No drift; leg holds 30-degree position for full 5 seconds 7. Limb Ataxia: 0 - Absent 8. Sensory: 0 - Normal; no sensory loss 9. Best Language: 0 - No aphasia; normal 10. Dysarthria: 0 - Normal 11. Extinction and Inattention: 0 - No abnormality Total: 0 11/27/24 1012 Cosigner Signature (if applicable): CC: ~ Signed [facility]06-08-2025 Discharge summary Author Arnol Estrada [facility] Note Date/Time November 26, 2024 10:41 pm [facility] Medical Records Department [address] [place] [address] Emergency Department Summary 11/26/24 MR#: [id number] Acct: [id number] Name: IVAN SALAS Rep #:[id number] : 1945 79 From: Arnol Gunter PCP: ISABELL Bush Sta tus:ADM MARINO Location: [address] History of Present Illness Chief Complaint: Stroke Alert [facility] Medical History (Updated 11/26/24 @ 22:[address] Josefa Roberts MD) CKD (chronic kidney disease) BPH (benign prostatic hyperplasia) Chronic anemia HLD (hyperlipidemia) HTN (hypertension) Valvular heart disease CAD (coronary artery disease) Home Medications ?Medication ?Instructions ?Recorded ?Last Taken ?Type aspirin 81 mg capsule 81 mg PO DAILY 11/26/24 Unkn own History cholecalciferol (vitamin D3) 25 1,000 unit PO QDAY 01/13 Unknown History mcg (1,000 unit) capsule (Vitamin D3) finasteride 5 mg tablet 5 mg PO DAILY 11/26/24 Unkno wn History metoprolol succinate 25 mg 12.5 mg PO DAILY 11/26/24 U nknown History tablet,extended release 24 hr rosuvastatin 40 mg tablet 40 mg PO DAILY 11/26/24 Unkn own History tamsulosin 0.4 mg capsule 0.4 mg PO DAILY 11/26/24 Unk nown History Allergy/AdvReac Type Severity Reaction Status Date / Time No Known Allergies Allergy Verified 11/26/24 20:48 Family History (Updated 11/26/24 @ 22:[address] Josefa Roberts MD) Mother , while attempting CABG x 4. CAD (coronary artery disease) Hypertension Heart disease Myocardial infarction Other Prostate cancer Surgical History (Updated 11/26/24 @ 21:[address] Josefa Roberts MD) History of tonsillectomy and adenoidectomy Hx of aortic valve replacement Hx of bilateral hip replacements History of bilateral knee replacement Hx of coronary artery bypass surgery Social History household members: spouse Smoking Status: Never smoker alcohol intake: never substance use type: does not use EXAM Physical Exam Const Vital Signs: 11/26/24 20:49 Pulse Rate 72 Respiratory Rate 16 Blood Pressure 144/70 H Blood Pressure Mean 94 Pulse Ox 94 Oxygen Delivery Method Room Air [facility] MDM Narrative Medical decision making narrative: HISTORY OF PRESENT ILLNESS: Chief complaint: Code stroke 79-year-old male presents with concern for acute stroke. Notes at 8:30 PM on 11/26/2024 he started experiencing left arm weakness. Denies chest pain. Deniesfalls. Has blood thinners. REVIEW OF SYSTEMS: Pertinent positives: Left arm weakness Pertinent negatives: Chest pain, headache PHYSICAL EXAM: Nursing triage notes reviewed, Vital signs reviewed Constitutional: please see mdm HENT: MMM Eyes: Pupils equal round and reactive to light, Extraocular muscles intact Neck: No stridor, no JVD, full neck ROM Lungs: Clear to auscultation, No wheezing or rales. No increased work of breathing, no conversational dyspnea, no accessory muscle use, no nasal flaring. No respiratory distress noted Heart: Regular rate and rhythm, No murmurs, No rubs and No gallops, 2+ distal pulses (radial, femoral, posterior tibial) in all extremities Abdomen: Soft, there is no tenderness, rigidity, rebound or guarding, no obviousperitoneal signs, no palpable pulsatile abdominal masses, no auscultated abdominal bruit : No CVAT Extremities: No edema Neuro: Alert, oriented x 3, no speech issues, no aphasia, no cranial nerve deficits, noted slight weakness left upper extremity in a ataxia left upper extremity otherwise no other focal neurologic deficits. NIH of 2 Skin: No rash or lesions noted MEDICAL DECISION MAKING: Chief Complaint: please see HPI External records reviewed: Reviewed prior imaging Factors affecting care: CAD, hypertension, hyperlipidemia, valvular heart disease, chronic anemia BPH Social determinants of health: none History obtained from others: Family Consults: Stroke neurology, stroke radiology, internal medicine [facility] Narrative: Patient was initially hemodynamically stable, afebrile nontoxic-appearing. He had left upper extremity weakness, initial NIH of 2 for left upper extremity weakness and ataxia I considered the following differential diagnosis: CVA, TIA, ICH, Kei's paralysis, focal seizure Given patient was in the 4 0.5 hour TNK window was taken immediately to CT scan per stroke protocol Noncon was verbally read by radiologist as negative. Shared decision-making discussion was undertaken between Dr. Mills (the stroke neurology), myself, patient and daughter and we jointly decided to forego TNK at this time given lowNIH, lack of debilitating symptom and due to symptoms improving. Dr. Mills further recommended loading the patient with Aspirin and Plavix. [facility] recommended obtaining a duplex ultrasound the patient carotid arteries as an inpatient. ALL IMAGES (IF OBTAINED) HAVE BEEN PERSONALLY REVIEWED AND INTERPRETED BY MYSELF. I have personally reviewed the patient's chest x-ray. Chest x-ray is unremarkable for pulmonary edema, pneumothorax, pneumonia or focal cardiopulmonary abnormality. EKG with normal sinus rhythm rate of 69, frequent PVCs, normal axis, normal intervals, no STEMI, no A-fib CT scan of the brain shows no evidence of ICH CTA of the head and neck shows no large vessel occlusion The patient and/or family, caregivers express understanding. The patient and/orfamily, caregivers agrees with the plan. Right I have personally reviewed the patient's chest x-ray. Chest x-ray is unremarkable for pulmonary edema, pneumothorax, pneumonia or focal cardiopulmonary abnormality. The synthesis of the patient's history, physical exam, labs images suggests likely acute CVA. The patient will be admitted to the PCU for further stroke care per stroke neurology recommendations. Shared decision making: I will have a discussion with the patient and or visitors regarding risk/benefits of further testing or admission. They will be made aware of of the risk/benefits inherent in this decision they will be given the opportunity to voice understanding. Total critical care time today provided was at least 0 minutes. This excludes separately billable procedures. Critical care time (if documented) is secondary to the patient having high probability of clinically significant/life threatening deterioration in the patient's condition which required my urgent intervention. Impression: 1. Acute CVA 2. History of CAD Dispo: Admit to PCU observation This note was generated with [employer] dictation software. It may contain incorrectwords, spelling, and punctuation that were not noted in review of the chart prior to signing. Discharge Plan Triage Chief Complaint: Stroke Alert ED Provider: Arnol Estrada Dx/Rx/DC Orders Primary Care Provider: Chi Duran NP What to do if you have Problems For any increased pain, shortness of breath, bleeding, nausea or vomiting, chestpain, or any unexpected problems, contact your Primary Care Provider. Call [facility] ([phone]) or report to the closest Emergency Room. Call 911 if necessary. 11/26/241 <Electronically signed by Arnol Estrada DO> Cosigner Signature (if applicable): CC: ISABELL Duran ~ Signed [facility] Work Phone: 1(901) 998-776306-08-2025 History and physical note Author Josefa Roberts [facility] Note Date/Time November 26, 2024 10:20 pm [facility] Medical Records Department [address] [place] [address] H&P Exam - Hospitalist 11/26/24 2149 MR#: [id number] Acct: [id number] Name: IVAN SALAS Rep #:[id number] : 1945 79 From: Josefa Roberts MD PCP: ISABELL Bush tus:ADM MARINO Location: [place] [address] HPI - General General Date of Admission: 11/26/24 Date of Service: 11/26/24 Chief Complaint: LUE weakness. HPI Narrative The patient is a 79 y/o M w/ PMHx: CKD, Chronic macrocytic anemia, Valvular heart disease, CAD s/p CABG x 5 remotely 2010 at [place], HTN, HLD, OA, BPH withobstructive pathology who presents to [facility] ED on 11/26/24 with history of onsetat approximately 8:30 PM on day of presentation left upper extremity weakness prompting immediate transition to the ED for evaluation. Initial ED physician NIH stroke scale assessment 2 for left upper extremity ataxia and mild weakness. Family and patient do report that he has been having for the last several weeksepisodes of lightheadedness and has frequently checked his blood pressure when this is occurred and noted that it has been low. He recently decreased his metoprolol and 3 days prior to current presentation stopped his ramipril and hashad some improvement. He does have a follow-up with ENT as he was not sure why he was having this. Workup in the ED included T97.2, heart rate 75, BP 144/70, respiratory rate 18, 95% on room air, CBC with WBC 6.2, hemoglobin 12, MCV 100.9, platelet 159 without marked shift, unremarkable coags, BMP with BUN/creat33/2.24, GFR 29 otherwise not marked appearing, troponin 35, CT of the brain with no acute intracranial findings, CTA head and neck no large vessel occlusion, aneurysm or AVM with mild scattered calcific plaque, chest x-ray withno acute cardiopulmonary findings, EKG with sinus rhythm with PVC with no acute evidence of ischemia. Stroke alert was initiated and recommendation to forego TNK given decreased NIH stroke scale low score however neurologist did recommendloading patient with aspirin and Plavix with admission for further CVA/TIA evaluation. Per Neurologist repeat NIHSS patient improved to 0. In the ED per neurology recommendations noted patient administered full-strength aspirin therapy and Plavix 70 mg p.o. x 1. [facility] Medical History CKD (chronic kidney disease) BPH (benign prostatic hyperplasia) Chronic anemia HLD (hyperlipidemia) HTN (hypertension) Valvular heart disease CAD (coronary artery disease) Home Medications ?Medication ?Instructions ?Recorded ?Last Taken ?Type aspirin 81 mg capsule 81 mg PO DAILY 11/26/24 Unkn own History cholecalciferol (vitamin D3) 25 1,000 unit PO QDAY 01/13 Unknown History mcg (1,000 unit) capsule (Vitamin D3) finasteride 5 mg tablet 5 mg PO DAILY 11/26/24 Unkno wn History metoprolol succinate 25 mg 12.5 mg PO DAILY 11/26/24 U nknown History tablet,extended release 24 hr rosuvastatin 40 mg tablet 40 mg PO DAILY 11/26/24 Unkn own History tamsulosin 0.4 mg capsule 0.4 mg PO DAILY 11/26/24 Unk nown History Allergy/AdvReac Type Severity Reaction Status Date / Time No Known Allergies Allergy Verified 11/26/24 20:48 Family History Mother , while attempting CABG x 4. CAD (coronary artery disease) Hypertension Heart disease Myocardial infarction Other Prostate cancer Surgical History History of tonsillectomy and adenoidectomy Hx of aortic valve replacement Hx of bilateral hip replacements History of bilateral knee replacement Hx of coronary artery bypass surgery Social History household members: spouse Smoking Status: Never smoker alcohol intake: never substance use type: does not use ROS ROS Narrative Admission Review of Systems: CONSTITUTIONAL: No weight loss, fever, chills, + weakness or fatigue. HEENT: + Lightheadedness, near syncope. Eyes: No visual loss, blurred vision, double vision or yellow sclerae. Ears, Nose, Throat: No hearing loss, sneezing, congestion, runny nose or sore throat. SKIN: No rash or itching, lesions, wounds. CARDIOVASCULAR: + Lightheadedness, near syncope. No chest pain, chest pressure or chest discomfort, palpitations, edema, orthopnea. RESPIRATORY: No shortness of breath, cough or sputum, wheezing, hemoptysis. GASTROINTESTINAL: No anorexia, nausea, vomiting or diarrhea, abdominal pain, melena, BRBPR. GENITOURINARY: No dysuria, frequency, urgency or retention. NEUROLOGICAL: + Left upper extremity weakness, lightheadedness/near syncope. No headache, paralysis, change in bowel or bladder control, seizure. MUSCULOSKELETAL: No muscle, back pain, joint pain or stiffness. HEMATOLOGIC: + Chronic anemia, easy bleeding/bruising. LYMPHATICS: No enlarged nodes. No history of splenectomy. PSYCHIATRIC: No history of depression or anxiety. ENDOCRINOLOGIC: No reports of sweating, cold or heat intolerance. No polyuria orpolydipsia. ALLERGIES: No history of asthma, hives, eczema or rhinitis. Vital Signs Vital Signs Vital Signs: 11/26/24 20:49 11/26/24 20:51 11/26/24 21:00 Temperature 97.2 F L Temperature Source Temporal Pulse Rate 72 75 Respiratory Rate 16 18 Blood Pressure 144/70 H 144/70 H Blood Pressure Mean 94 94 Pulse Ox 94 95 98 Oxygen Delivery Method Room Air Room Air Room Air 11/26/24 21:05 11/26/24 21:30 Temperature Temperature Source Pulse Rate 65 83 Respiratory Rate 18 18 Blood Pressure 140/91 H 126/83 H Blood Pressure Mean 107 97 Pulse Ox 99 98 Oxygen Delivery Method Room Air Room Air Weight Weight: 214 lb 1.102 oz Body Mass Index (BMI) 28.2 Physical Exam Narrative Physical Examination: General: Awake, alert, oriented x 3 and cooperative, seated upright in the ED bed, no acute distress, notes left upper extremity feels much improved But still not exactly at his baseline. Skin: Normal color, normal turgor, no icterus, no cyanosis except occasional stage ecchymoses, abrasion HEENT: AT/NC, EOMI, PERRLA, MMM, no carotid bruits or JVD noted. Lungs: Mildly diminished, greater bases, proper effort no rales, ronchi or wheezing. Heart: Regular rate and rhythm; no gallop, rub audible, + SM. Abdomen: Soft, NTTP, ND, mildly hyperactive BS, no HSM. Extremities: No cyanosis, clubbing, or edema. 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 Psychiatric: Affect appears normal, very interactive, no acute evidence of depressive or anxiety feelings. Results Lab / Micro Data 11/26/24 20:50 11/26/24 20:50 Labs: Laboratory Results - last 24 hr 11/26/24 20:49: POC Glucose 97 11/26/24 20:50: WBC 6.2, RBC 3.43 L, Hgb 12.0 L, Hct 34.6 L, MCV 100.9 H, MCH 35.0 H, MCHC 34.7, RDW Std Deviation 52.6 H, RDW Coeff of Michelle 14.2, Plt Count 159, MPV 8.7, Immature Gran % (Auto) 0.300, Neut % (Auto) 64.9, Lymph % (Auto) 22.9, [place] % (Auto) 9.3, Eos % (Auto) 2.4, Baso % (Auto) 0.2, Absolute Neuts (auto) 4.0, Absolute Lymphs (auto) 1.41, Nucleated RBC % 0, PT 13.8, INR 1.0, APTT 26.8, Sodium 138, Potassium 4.1, Chloride 103, Carbon Dioxide 23.4, Anion Gap 12, BUN 33 H, Creatinine 2.24 H, Estim Creat Clear Calc 33.36 L, Est GFR (MDRD) Non-Af 29 L, BUN/Creatinine Ratio 14.7, Glucose 96, Calcium 9.7, TroponinT High Sens 35 H Imaging Radiology Impression Brain CT 11/26/24 20:54 IMPRESSION: No acute intracranial finding. Reading Location: [facility] Head/Neck CTA 11/26/24 20:54 IMPRESSION: 1. No large vessel occlusion, aneurysm or AVM. 2. Mild scattered calcific plaque as described. Dr. Diaz discussed these findings via telephone with Dr. Estrada at 9:30 p.m.on 11/26/2024. Reading Location: [facility] Chest X-Ray 11/26/24 21:25 IMPRESSION: No Acute Findings. Reading Location: [facility] Assessment & Plan Assessment/Plan (1) LUE weakness: PLAN: Plan The patient is a 79 y/o M w/ PMHx: CKD, Chronic macrocytic anemia, Valvular heart disease, CAD s/p CABG x 5 remotely 2009 at [place], HTN, HLD, OA, BPH withobstructive pathology who presents to the [facility] ED on 11/26/24 with history of onsetat approximately 8:30 PM on day of presentation left upper extremity weakness prompting immediate transition to the ED for evaluation. Initial ED physician NIH stroke scale assessment 2 for left upper extremity ataxia and mild weakness. #1. Left upper extremity weakness concerning for TIA/CVA: Will admit to PCU, will obtain MRI Brain, ECHO, PT/OT/Speech/Nutrition evaluation per protocol. Will allow permissive HTN, in the ED patient was loaded with aspirin and Plavix,will continue baby aspirin and low-dose Plavix starting 11/27/2024, statin w/ AM FLP, fall precautions. Mag, TSH, FLP, HgbA1c requested. Maintain on fall and aspiration precautions. Will continue neurology consultation. #2. CAD with indeterminate cardiac enzyme, possibly mildly elevated especially given underlying renal disease with recently reported lightheadedness/dizziness with intermittent hypotension, suspect orthostasis: Status post CABG x 5 remotely in 2009 at [place], will continue aspirin, statin, temporarily holding metoprolol and lisinopril given need for permissive hypertension as noted above #1, add back once clinically appropriate. Current presentation with troponin 35, EKG with sinus rhythm with PVC with no acute evidence of ischemia, will maintain on telemetry, magnesium level requested, FLP in AM, obtain orthostatics, temporarily holding hypertensive regimen as noted for permissive hypertension but once added back may need to assure vital signs stay appropriatewith positional changes, echo requested as noted. 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 Arechiga of these recent medication changes that he has made in his symptoms. #3. Possible Chronic Kidney Disease Stage IV, unclear as no recent labs, prior was more consistent with stage II but remote labs versus possible GUMARO versus acute renal insufficiency/elevated creatinine, uncertain: Admission BUN/Cr 33/2.24, GFR 29, baseline renal function 1.0-1.3 however these labs are remote from 2012, but from discussion with family suspect likely at least CKD stage IIIif not stage IV and he does follow with nephrology. Will repeat BMP in AM to further elucidate current baseline. #4. Valvular heart disease: Status post AVR, no noted echocardiogram in the system, pending as noted above. #5. Hypertension: Will temporally hold home regimen of metoprolol for permissive hypertension, as needed agents per stroke protocol, add back oral regimen once clinically appropriate. From prior records had been on ACEI also, clarifying. #6. Hyperlipidemia: Continue home statin regimen. AM FLP. #7. Chronic macrocytic anemia: Admission hemoglobin 12, MCV 100.9, baseline hemoglobin noted remotely to very, most recently however 02/04/2016 hemoglobin atthat time 14 with no recent labs for comparison, will repeat CBC in a.m. to further elucidate current baseline. #8. BPH with obstructive pathology: Will continue patient home finasteride and Flomax regimen, will continue to monitor for urinary retention. #9. DVT prophylaxis: Lovenox. #10. CODE status: Patient HCPOA is who is present and living will is in place family believes. Discussed CODE status at length including difference between FULL code, DNR-CCA and DNR-CC status. Following discussions about the differences in these status, requested Full Code status. Charges/Coding Visit Charges Inpatient E&M: 18902 Init Hosp L3 11/26/242219 <Electronically signed by Josefa Roberts MD> Cosigner Signature (if applicable): CC: ISABELL Duran; Dr. Josefa Roberts MD~ Signed [facility] Work Phone: 1(217) 220-990706-07-2025 Evaluation note* Diagnosis Onset Date Resolution Status Admit Date LUE weakness acute November 26 9:50pm [facility] Work Phone: 1(420) 412-323306-07-2025 Evaluation note* Diagnosis Onset Date Resolution Status Admit Date LUE weakness inactive November 26 9:50pm [facility] Work Phone: 1(510) 493-498006-07-2025 Discharge summary [facility] Medical Records Department [address] [place] [address] Emergency Department Summary 11/26/24 MR#: [id number] Acct: [id number] Name: IVAN SALAS Rep #:[id number] : 1945 79 From: Arnol Gunter PCP: ISABELL Bush Sta tus:ADM MARINO Location: PCU [id number] HPI History of Present Illness Chief Complaint: Stroke Alert [facility] Medical History (Updated 11/26/24 @ 22:[address] Josefa Roberts MD) CKD (chronic kidney disease) BPH (benign prostatic hyperplasia) Chronic anemia HLD (hyperlipidemia) HTN (hypertension) Valvular heart disease CAD (coronary artery disease) Home Medications ?Medication ?Instructions ?Recorded ?Last Taken ?Type aspirin 81 mg capsule 81 mg PO DAILY 11/26/24 Unkn own History cholecalciferol (vitamin D3) 25 1,000 unit PO QDAY 01/13 Unknown History mcg (1,000 unit) capsule (Vitamin D3) finasteride 5 mg tablet 5 mg PO DAILY 11/26/24 Unkno wn History metoprolol succinate 25 mg 12.5 mg PO DAILY 11/26/24 U nknown History tablet,extended release 24 hr rosuvastatin 40 mg tablet 40 mg PO DAILY 11/26/24 Unkn own History tamsulosin 0.4 mg capsule 0.4 mg PO DAILY 11/26/24 Unk nown History Allergy/AdvReac Type Severity Reaction Status Date / Time No Known Allergies Allergy Verified 11/26/24 20:48 Family History (Updated 11/26/24 @ 22:[address] Josefa Roberts MD) Mother , while attempting CABG x 4. CAD (coronary artery disease) Hypertension Heart disease Myocardial infarction Other Prostate cancer Surgical History (Updated 11/26/24 @ 21:[address] Josefa Roberts MD) History of tonsillectomy and adenoidectomy Hx of aortic valve replacement Hx of bilateral hip replacements History of bilateral knee replacement Hx of coronary artery bypass surgery Social History household members: spouse Smoking Status: Never smoker alcohol intake: never substance use type: does not use EXAM Physical Exam Const Vital Signs: 11/26/24 20:49 Pulse Rate 72 Respiratory Rate 16 Blood Pressure 144/70 H Blood Pressure Mean 94 Pulse Ox 94 Oxygen Delivery Method Room Air MDM MDM MDM Narrative Medical decision making narrative: HISTORY OF PRESENT ILLNESS: Chief complaint: Code stroke 79-year-old male presents with concern for acute stroke. Notes at 8:30 PM on 11/26/2024 he started experiencing left arm weakness. Denies chest pain. Deniesfalls. Has blood thinners. REVIEW OF SYSTEMS: Pertinent positives: Left arm weakness Pertinent negatives: Chest pain, headache PHYSICAL EXAM: Nursing triage notes reviewed, Vital signs reviewed Constitutional: please see mdm HENT: MMM Eyes: Pupils equal round and reactive to light, Extraocular muscles intact Neck: No stridor, no JVD, full neck ROM Lungs: Clear to auscultation, No wheezing or rales. No increased work of breathing, no conversational dyspnea, no accessory muscle use, no nasal flaring. No respiratory distress noted Heart: Regular rate and rhythm, No murmurs, No rubs and No gallops, 2+ distal pulses (radial, femoral, posterior tibial) in all extremities Abdomen: Soft, there is no tenderness, rigidity, rebound or guarding, no obviousperitoneal signs, no palpable pulsatile abdominal masses, no auscultated abdominal bruit : No CVAT Extremities: No edema Neuro: Alert, oriented x 3, no speech issues, no aphasia, no cranial nerve deficits, noted slight weakness left upper extremity in a ataxia left upper extremity otherwise no other focal neurologic deficits. NIH of 2 Skin: No rash or lesions noted MEDICAL DECISION MAKING: Chief Complaint: please see HPI External records reviewed: Reviewed prior imaging Factors affecting care: CAD, hypertension, hyperlipidemia, valvular heart disease, chronic anemia BPH Social determinants of health: none History obtained from others: Family Consults: Stroke neurology, stroke radiology, internal medicine [facility] Narrative: Patient was initially hemodynamically stable, afebrile nontoxic-appearing. He had left upper extremity weakness, initial NIH of 2 for left upper extremity weakness and ataxia I considered the following differential diagnosis: CVA, TIA, ICH, Kei's paralysis, focal seizure Given patient was in the 4 0.5 hour TNK window was taken immediately to CT scan per stroke protocol Noncon was verbally read by radiologist as negative. Shared decision-making discussion was undertaken between Dr. Mills (the stroke neurology), myself, patient and daughter and we jointly decided to forego TNK at this time given lowNIH, lack of debilitating symptom and due to symptoms improving. Dr. Mills further recommended loading the patient with Aspirin and Plavix. [facility] recommended obtaining a duplex ultrasound the patient carotid arteries as an inpatient. ALL IMAGES (IF OBTAINED) HAVE BEEN PERSONALLY REVIEWED AND INTERPRETED BY MYSELF. I have personally reviewed the patient's chest x-ray. Chest x-ray is unremarkable for pulmonary edema, pneumothorax, pneumonia or focal cardiopulmonary abnormality. EKG with normal sinus rhythm rate of 69, frequent PVCs, normal axis, normal intervals, no STEMI, Rodrigue-fib CT scan of the brain shows no evidence of ICH CTA of the head and neck shows no large vessel occlusion The patient and/or family, caregivers express understanding. The patient and/orfamily, caregivers agrees with the plan. Right I have personally reviewed the patient's chest x-ray. Chest x-ray is unremarkable for pulmonary edema, pneumothorax, pneumonia or focal cardiopulmonary abnormality. The synthesis of the patient's history, physical exam, labs images suggests likely acute CVA. The patient will be admitted to the PCU for further stroke care per stroke neurology recommendations. Shared decision making: I will have a discussion with the patient and or visitors regarding risk/benefits of further testing or admission. They will be made aware of of the risk/benefits inherent in this decision they will be given the opportunity to voice understanding. Total critical care time today provided was at least 0 minutes. This excludes separately billable procedures. Critical care time (if documented) is secondary to the patient having high probability ofclinically significant/life threatening deterioration in the patient's condition which required my urgent intervention. Impression: 1. Acute CVA 2. History of CAD Dispo: Admit to PCU observation This note was generated with [employer] dictation software. It may contain incorrectwords, spelling, and punctuation that were not noted in review of the chart prior to signing. Discharge Plan Triage Chief Complaint: Stroke Alert ED Provider: Arnol Estrada Dx/Rx/DC Orders Primary Care Provider: Chi Duran NP What to do if you have Problems For any increased pain, shortness of breath, bleeding, nausea or vomiting, chestpain, or any unexpected problems, contact your Primary Care Provider. Call [facility] ([phone]) or report tothe closest Emergency Room. Call 911 if necessary. 11/26/24 2241 Cosigner Signature (if applicable): CC: ISABELL Duran ~ Signed [facility]06-07-2025 History and physical note [facility] Medical Records Department [address] [place] [address] H&P Exam - Hospitalist 11/26/245 MR#: [id number] Acct: [id number] Name: IVAN SALAS Rep #:[id number] : 1945 79 From: Josefa Roberts MD PCP: Chi Duran, ISABELL Bates tus:ADM MARINO Location: [place] [address] HPI - General General Date of Admission: 11/26/24 Date of Service: 11/26/24 Chief Complaint: LUE weakness. HPI Narrative The patient is a 79 y/o M w/ PMHx: CKD, Chronic macrocytic anemia, Valvular heart disease, CAD s/p CABG x 5 remotely 2010 at [place], HTN, HLD, OA, BPH withobstructive pathology who presents to the [facility] ED on 11/26/24 with history of onsetat approximately 8:30 PM on day of presentation left upper extremity weakness prompting immediate transition to the ED for evaluation. Initial ED physician NIH stroke scale assessment 2 for left upper extremity ataxia and mild weakness. Family and patient do report that he has been having for the last several weeksepisodes of lightheadedness and has frequently checked his blood pressure when this is occurred and noted that it has been low. He recently decreased his metoprolol and 3 days prior to current presentation stopped his ramipril and hashad some improvement. He does have a follow-up with ENT as he was not sure why he was having this. Workup in the ED included T97.2, heart rate 75, BP 144/70, respiratory rate 18, 95% on room air, CBC with WBC 6.2, hemoglobin 12, MCV 100.9, platelet 159 without marked shift, unremarkable coags, BMP with BUN/creat33/2.24, GFR 29 otherwise not marked appearing, troponin 35, CT of the brain with no acute intracranial findings, CTA head and neck no large vessel occlusion, aneurysm or AVM with mild scattered calcific plaque, chest x- ray withno acute cardiopulmonary findings, EKG with sinus rhythm with PVC with no acute evidence of ischemia. Stroke alert was initiated and recommendation to forego TNK given decreased NIH stroke scale low score however neurologist did recommendloading patient with aspirin and Plavix with admission for further CVA/TIA evaluation. Per Neurologist repeat NIHSS patient improved to 0. In the ED per neurology recommendations noted patient administered full-strength aspirin therapy and Plavix 70 mg p.o. x 1. [facility] Medical History CKD (chronic kidney disease) BPH (benign prostatic hyperplasia) Chronic anemia HLD (hyperlipidemia) HTN (hypertension) Valvular heart disease CAD (coronary artery disease) Home Medications ?Medication ?Instructions ?Recorded ?Last Taken ?Type aspirin 81 mg capsule 81 mg PO DAILY 11/26/24 Unkn own History cholecalciferol (vitamin D3) 25 1,000 unit PO QDAY 01/13 Unknown History mcg (1,000 unit) capsule (Vitamin D3) finasteride 5 mg tablet 5 mg PO DAILY 11/26/24 Unkno wn History metoprolol succinate 25 mg 12.5 mg PO DAILY 11/26/24 U nknown History tablet,extended release 24 hr rosuvastatin 40 mg tablet 40 mg PO DAILY 11/26/24 Unkn own History tamsulosin 0.4 mg capsule 0.4 mg PO DAILY 11/26/24 Unk nown History Allergy/AdvReac Type Severity Reaction Status Date / Time No Known Allergies Allergy Verified 11/26/24 20:48 Family History Mother , while attempting CABG x 4. CAD (coronary artery disease) Hypertension Heart disease Myocardial infarction Other Prostate cancer Surgical History History of tonsillectomy and adenoidectomy Hx of aortic valve replacement Hx of bilateral hip replacements History of bilateral knee replacement Hx of coronary artery bypass surgery Social History household members: spouse Smoking Status: Never smoker alcohol intake: never substance use type: does not use ROS ROS Narrative Admission Review of Systems: CONSTITUTIONAL: No weight loss, fever, chills, + weakness or fatigue. HEENT: + Lightheadedness, near syncope. Eyes: No visual loss, blurred vision, double vision or yellow sclerae. Ears, Nose, Throat: No hearing loss, sneezing, congestion, runny nose or sore throat. SKIN: No rash or itching, lesions, wounds. CARDIOVASCULAR: + Lightheadedness, near syncope. No chest pain, chest pressure or chest discomfort,palpitations, edema, orthopnea. RESPIRATORY: No shortness of breath, cough or sputum, wheezing, hemoptysis. GASTROINTESTINAL: No anorexia, nausea, vomiting or diarrhea, abdominal pain, melena, BRBPR. GENITOURINARY: No dysuria, frequency, urgency or retention. NEUROLOGICAL: + Left upper extremity weakness, lightheadedness/near syncope. No headache, paralysis, change in bowel or bladder control, seizure. MUSCULOSKELETAL: No muscle, back pain, joint pain or stiffness. HEMATOLOGIC: + Chronic anemia, easy bleeding/bruising. LYMPHATICS: No enlarged nodes. No history of splenectomy. PSYCHIATRIC: No history of depression or anxiety. ENDOCRINOLOGIC: No reports of sweating, cold or heat intolerance. No polyuria orpolydipsia. ALLERGIES: No history of asthma, hives, eczema or rhinitis. Vital Signs Vital Signs Vital Signs: 11/26/24 20:49 11/26/24 20:51 11/26/24 21:00 Temperature 97.2 F L Temperature Source Temporal Pulse Rate 72 75 Respiratory Rate 16 18 Blood Pressure 144/70 H 144/70 H Blood Pressure Mean 94 94 Pulse Ox 94 95 98 Oxygen Delivery Method Room Air Room Air Room Air 11/26/24 21:05 11/26/24 21:30 Temperature Temperature Source Pulse Rate 65 83 Respiratory Rate 18 18 Blood Pressure 140/91 H 126/83 H Blood Pressure Mean 107 97 Pulse Ox 99 98 Oxygen Delivery Method Room Air Room Air Weight Weight: 214 lb 1.102 oz Body Mass Index (BMI) 28.2 Physical Exam Narrative Physical Examination: General: Awake, alert, oriented x 3 and cooperative, seated upright in the ED bed, no acute distress, notes left upper extremity feels much improved But still not exactly at his baseline. Skin: Normal color, normal turgor, no icterus, no cyanosis except occasional stage ecchymoses, abrasion HEENT: AT/NC, EOMI, PERRLA, MMM, no carotid bruits or JVD noted. Lungs: Mildly diminished, greater bases, proper effort no rales, ronchi or wheezing. Heart: Regular rate and rhythm; no gallop, rub audible, + SM. Abdomen: Soft, NTTP, ND, mildly hyperactive BS, no HSM. Extremities: No cyanosis, clubbing, or edema. Neurological: Patient awake, alert, oriented as noted, cognitive function intact; pupils equally reactive to light and accommodation, cranial nerves grossnormal, moving all 4 extremities, no focal deficits, strength preserved, sensation intact, finger-nose and cacx-ko-bjqa appropriate, equivocal Babinski assessment, fish stringer assembler strength bilaterally appropriate. Psychiatric: Affect appears normal, very interactive, no acute evidence of depressive or anxiety feelings. Results Lab / Micro Data 11/26/24 20:50 11/26/24 20:50 Labs: Laboratory Results - last 24 hr 11/26/24 20:49: POC Glucose 97 11/26/24 20:50: WBC 6.2, RBC 3.43 L, Hgb 12.0 L, Hct 34.6 L, MCV 100.9 H, MCH 35.0 H, MCHC 34.7, RDW Std Deviation 52.6 H, RDW Coeff of Michelle 14.2, Plt Count 159, MPV 8.7, Immature Gran % (Auto) 0.300,Neut % (Auto) 64.9, Lymph % (Auto) 22.9, [place] % (Auto) 9.3, Eos % (Auto) 2.4, Baso % (Auto) 0.2, Absolute Neuts (auto) 4.0, Absolute Lymphs (auto) 1.41, Nucleated RBC % 0, PT 13.8, INR 1.0, APTT 26.8, Sodium 138, Potassium 4.1, Chloride 103, Carbon Dioxide 23.4, Anion Gap 12, BUN 33 H, Creatinine 2.24 H, Estim Creat Clear Calc 33.36 L, Est GFR (MDRD) Non-Af 29 L, BUN/Creatinine Ratio 14.7, Glucose 96, Calcium 9.7, TroponinT High Sens 35 H Imaging Radiology Impression Brain CT 11/26/24 20:54 IMPRESSION: No acute intracranial finding. Reading Location: [facility] Head/Neck CTA 11/26/24 20:54 IMPRESSION: 1. No large vessel occlusion, aneurysm or AVM. 2. Mild scattered calcific plaque as described. Dr. Diaz discussed these findings via telephone with Dr. Estrada at 9:30 p.m.on 11/26/2024. Reading Location: [facility] Chest X-Ray 11/26/24 21:25 IMPRESSION: No Acute Findings. Reading Location: [id number] Assessment & Plan Assessment/Plan (1) LUE weakness: PLAN: Plan The patient is a 79 y/o M w/ PMHx: CKD, Chronic macrocytic anemia, Valvular heart disease, CAD s/p CABG x 5 remotely 2009 at [facility], HTN, HLD, OA, BPH withobstructive pathology who presents to the [facility] ED on 11/26/24 with history of onsetat approximately 8:30 PM on day of presentation left upper extremity weakness prompting immediate transition to the ED for evaluation. Initial ED physician NIH stroke scale assessment 2 for left upper extremity ataxia and mild weakness. #1. Left upper extremity weakness concerning for TIA/CVA: Will admit to PCU, will obtain MRI Brain,ECHO, PT/OT/Speech/Nutrition evaluation per protocol. Will allow permissive HTN, in the ED patient was loaded with aspirin and Plavix,will continue baby aspirin and low-dose Plavix starting 11/27/2024,statin w/ AM FLP, fall precautions. Mag, TSH, FLP, HgbA1c requested. Maintain on fall and aspiration precautions. Will continue neurology consultation. #2. CAD with indeterminate cardiac enzyme, possibly mildly elevated especially given underlying renal disease with recently reported lightheadedness/dizziness with intermittent hypotension, suspect orthostasis: Status post CABG x 5 remotely in 2009 at [facility], will continue aspirin, statin, temporarily holding metoprolol and lisinopril given need for permissive hypertension as noted above #1, addback once clinically appropriate. Current presentation with troponin 35, EKG with sinus rhythm withPVC with no acute evidence of ischemia, will maintain on telemetry, magnesium level requested, FLP in AM, obtain orthostatics, temporarily holding hypertensive regimen as noted for permissive hypertension but once added back may need to assure vital signs stay appropriatewith positional changes, echo requested as noted. 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 Arechiga of these recent medication changes that he has made in his symptoms. #3. Possible Chronic Kidney Disease Stage IV, unclear as no recent labs, prior was more consistent with stage II but remote labs versus possible GUMARO versus acute renal insufficiency/elevated creatinine, uncertain: Admission BUN/Cr 33/2.24, GFR 29, baseline renal function 1.0-1.3 however these labs are remote from 2012, but from discussion with family suspect likely at least CKD stage IIIif not stage IV and he does follow with nephrology. Will repeat BMP in AM to further elucidate current baseline. #4. Valvular heart disease: Status post AVR, no noted echocardiogram in the system, pending as noted above. #5. Hypertension: Will temporally hold home regimen of metoprolol for permissive hypertension, as needed agents per stroke protocol, add back oral regimen once clinically appropriate. From prior records had been on ACEI also, clarifying. #6. Hyperlipidemia: Continue home statin regimen. AM FLP. #7. Chronic macrocytic anemia: Admission hemoglobin 12, MCV 100.9, baseline hemoglobin noted remotely to very, most recently however 02/04/2016 hemoglobin atthat time 14 with no recent labs for comparison, will repeat CBC in a.m. to further elucidate current baseline. #8. BPH with obstructive pathology: Will continue patient home finasteride and Flomax regimen, willcontinue to monitor for urinary retention. #9. DVT prophylaxis: Lovenox. #10. CODE status: Patient HCPOA is who is present and living will is in place family believes.Discussed CODE status at length including difference between FULL code, DNR-CCA and DNR-CC status. Following discussions about the differences in these status, requested Full Code status. Charges/Coding Visit Charges Inpatient E&M: 71935 Init Hosp L3 11/26/24 2220 Cosigner Signature (if applicable): CC: ELEVATING GRADER OPERATOR-C Chi Duran; Dr. Josefa Roberts MD~ Signed [facility]06-07-2025 Radiology Diagnostic study note [facility] Imaging Services [address] [place] [address] Chest 1 View (Portable) MR#: [id number] Acct: [id number] Name: IVAN SALAS Rep #: [id number] : 1945 M 79 From: Shilpi Diaz MD PCP: Chi Duran, ELEVATING GRADER OPERATOR-C Status: REG ER Study:Chest 1 View (Portable) Date of Exam: 11/26/24 Exam# [id number] Ordering Dr: Edson Estrada DO PROCEDURE: CHEST 1 VIEW (PORTABLE) 11/26/2024 REASON FOR EXAM: CVA TECHNIQUE: Frontal view of the chest. COMPARISON: None. FINDINGS: Hardware: Prior median sternotomy and CABG. Heart: The heart size is normal. Lungs: Low lung volumes. No focal consolidation, pleural effusion or pneumothorax. Bones: Degenerative changes are identified within the thoracic spine. RAD/Chest 1 View (Portable) IMPRESSION: No Acute Findings. Reading Location: IZA-NMDSECSE-OX CC: ELEVATING GRADER OPERATOR-C Chi Duran; Dr. Arnol Estrada DO ~ Radio Control Crane Operator: Signed [facility]06-07-2025 Radiology Diagnostic study note [facility] Imaging Services [address] [place], [place] [id number] STROKE CTA Head AND Neck W/Con MR#: [id number] Acct: [id number] Name: IVAN SALAS Rep #: [id number] : 1945 79 From: Shilpi Diaz MD PCP: Chi Duran ELEVATING GRADER OPERATORHawaC Status: REG ER Study:STROKE CTA Head AND Neck W/Con Date of Exam: 11/26/24 Exam# [id number] Ordering Dr: Edson Estrada DO PROCEDURE: STROKE CTA HEAD AND NECK W/CON 11/26/2024 REASON FOR EXAM: NEURO DEFICIT, ACUTE, STROKE SUSPECTED TECHNIQUE: CTA imaging of the head and neck from the aortic arch to the skull vertex with intravenous contrast. Coronal and Sagittal reconstruction series were provided. 3D, 3D post processing, 3D reconstructions, Maximum intensity projection (MIPs) Volume rendering and Shaded surface rendering was provided. CONTRAST: Isovue 370 VOLUME: 100mL One or more dose reduction techniques were used (e.g., Automated exposure control, adjustment of the mA and/or kV according to patient size, use of iterative reconstruction technique). RADIATION DOSE SUMMARY: CTDlvol: 40 mGy DLP: 710 mGycm COMPARISON: Same-day CT head FINDINGS: See same day CT head for discussion of nonvascular findings. CTA neck: Two-vessel aortic arch. Mild plaque of the aortic arch vessels and origins of the bilateral vertebral arteries without focal stenosis or narrowing. Calcific plaque of the V1 and V2 segments of the right vertebral artery without significant stenosis. The left vertebral artery is widely patent. Calcific plaque of the bilateral cervical carotid arteries without hemodynamically significant narrowing by NASCET criteria. CTA head: Calcific plaque of the bilateral carotid siphons without focal stenosis. The bilateral anterior, middle and posterior cerebral arteries are widely patent. No aneurysm or AVM. Major venous structures: Unremarkable. Other findings: Cervical spondylosis. Prior median sternotomy. CT/STROKE CTA Head AND Neck W/Con IMPRESSION: 1. No large vessel occlusion, aneurysm or AVM. 2. Mild scattered calcific plaque as described. Dr. Diaz discussed these findings via telephone with Dr. Estrada at 9:30 p.m.on 11/26/2024. Reading Location: [facility] CC: ELEVATING GRADER OPERATOR-C Chi Duran; Dr. Arnol Estrada DO ~ Radio Control Crane Operator: Signed [facility]06-07-2025 Radiology Diagnostic study note [facility] Imaging Services [address] [place] [address] STROKE Brain/Head without Cont MR#: [id number] Acct: [id number] Name: IVAN SALAS Rep #: [id number] : 1945 M 79 From: Shilpi Diaz MD PCP: ISABELL Bush Status: REG ER Study:STROKE Brain/Head without Cont Date of Exam: 11/26/24 Exam# [id number] Ordering Dr: Edson Estrada DO EXAM: STROKE BRAIN/HEAD WITHOUT CONT CLINICAL HISTORY: 79 y/o M with NEURO DEFICIT, ACUTE, STROKE SUSPECTED. Left arm weakness. COMPARISON: None. TECHNIQUE: Routine CT imaging of the head without IV contrast. Additional multiplanar reformats were obtained. Dose reduction techniques were used including intermediate exposure control (AEC),iterative reconstruction technique, and/or mA and/or KV dose adjustments based on patient's size. FINDINGS: Mild generalized cerebral volume loss with concordant prominence of the ventricles and subarachnoidspaces. Small, chronic ischemic infarct within the right posterior parieto-occipital watershed area. Mild patchy supratentorial white matter hypodensities. The gotti-white matter interfaces are otherwise maintained. No acute intracranial hemorrhage or herniation. Prior ocular lens replacements. The visualized paranasal sinuses and mastoids are unremarkable. No calvarial fracture or scalp hematoma. CT/STROKE Brain/Head without Cont IMPRESSION: No acute intracranial finding. Reading Location: LWV-MSUUPHCH-IR CC: ISABELL Duran; Dr. Arnol Estrada, DO ~ Radio Control Crane Operator: Signed [facility]04-28-2025 Note* Exam Date Time Procedure Performing Provider Status 10/17/24 3:[address] Abdomen/Pelvis w/Contrast ROMEO ARDON MD; Auth (Verified) [id number] ORIGINAL EXAMINATION: CT OF THE ABDOMEN AND [...] 10/17/2024 3:37:12 PM Ordering Provider: CHI DURAN [facility]01-10-2024 Note Discharge Instructions Thank you for allowing [facility] to assist you with your healthcare needs. The following is importantdischarge information regarding your hospital visit. Your Care Team CHI DURAN KILN PACKER - GLAZIER ARTIST Your Diagnosis Acute on chronic heart failure [...] - Please call Jinny (RN valve coordinator) [phone] or Simi (nurse practitioner) [phone] with questions/concerns regarding procedure or follow-up. Scheduled Follow-Up Appointments Appointment Type When With Where Contact InformationCV Procedure - AOH Echo 07/28/2023 01:00 PM [facility] Radiology [phone] CV OV 09/07/2023 10:45 AM EDT [facility] Nurse Lab 12/10/2023 08:00 AM EDT [facility] OV Follow Up 12/14/2023 08:00 AM EDT CHI DURAN APRN - [facility] Follow Up Appointments Follow Up with Echocardiogram When In 4 weeks Why: Our office will mail you information regarding follow-up testing/office visit. This departmentis located in the first floor [facility]. Please have lab work done around the same time, prior to your office visit. Where: Follow Up with RUBIO REBOLLEDO MD When In 4 weeks Why: TAVR follow up; echo and lab work prior to office visit Where: [address] [facility] [place] [address]- [phone] Follow Up with [facility] will contact you for an appointment in 4-6weeks If you have any questions please call:[phone]. When Where: Follow Up with CHI DURAN When Within 1-2 days Where: [address] [place] [address]- Business (1) The Following Activity and Diet [...] by mouth Once a day Pickup at [facility]/pharmacy #[id number] Unchanged aspirin (aspirin 81 [...] a day Duration: 90 Days Pharmacy Information [facility]/pharmacy #[id number]: [address], [place] [phone] Please take this list to your next [...] cannot use soap and water, use hand paper roll machine operator. ? Change your bandage as told by [...] even if your condition gets better. Take fnex-bsv-zviirii and prescription medicines only as told by [...] 08/30/2012 Document Revised: 10/26/2017 Document Reviewed: 02/13/2017 [employer] Patient Education 2020 [employer] TRANSCATHETER AORTIC VALVE REPLACEMENT (TAVR) Discharge [...] need to report the following to your stem frazer: Any draining or oozing from the site [...] to receive it can visit one of [facility] vaccine clinics. There are many vaccine clinic locations within the [facility]. For locations and available times, please visit https://gettheshot.coronavirus.[place].gov/. It is important to note that some COVID mobile vaccine clinics are held outdoors and may be canceled in rainy or stormy conditions. To learn more about pediatric vaccinations (ages 5-11), we invite you to visit the [facility] webpage. https://www.[email or web address].org/pages/[email or web address]-Vjepz-Jzlxldbsgvb-Beimdhinbj-Bapaz-Htm stions.htmlTo learn more about the COVID-19 vaccine, we invite you to visit the CDC website for a list of frequently asked questions.https://www.cdc.gov/coronavirus/2019-ncov/vaccines/faq.html [employer] Patient Portal Access Instructions: Stay connected with your healthcare team and access your personal medical information anytime with the [employer] Patient Portal. Please follow the directions below to create your [facility] account: 1.Access the email account you provided upon registration to the hospital/physician office.2.Look for an invitation email from [facility].3.Open the email and access the invitation link: AcceptInvitation to [facility].4.Fill in the required montesinos to create your account. To access your account, visit [email or web address]. Click the blue button labeled Access Patient Portal and then log in with the username and password that you created in the steps above. You will be able to view your test results, lab results, a summary of your visits, upcoming appointments and more. There is also a convenient messaging option where you can send secure messages to your p rovider. In addition, you will have the ability to download any documents or summaries to your computer and/or send the information securely to a physician. Remember that your healthcare information is confidential, so carefully consider who you will allowto register on the [facility] Patient Portal for access to your information. You can also access the [facility] on the [facility] [employer] el[facility]. Simply click on Patient Portal and then log into your account. If you would like to receive a full copy of your medical records, please contact the [facility] Medical Records Department by calling [phone], Thursday through Thursday between 8 a.m. and [...] Call your local pharmacy or go to http://bit.ly/2J7Wz7a to find one close to you.3.Make use of household items: Use cat litter or old coffee grounds to dispose medications if other options arenot available. Mix your drugs with these household products, seal them in an airtight container andthrow it into the garbage. Call [facility]: [phone] to be sure your drugs can be [...] Signatures Patient Education Materials Incision Care, Adult, Bryz-pf-Vfki 3- SH TRANSCATHETER AORTIC VALVE REPLACEMENT (TAVR) Discharge Instructions 07/06/2018(CUSTOM) Medication Leaflets My discharge plan and instructions have been reviewed and explained to me and I,IVAN SALAS understand my current condition and have read and understand these discharge instructions. I have receiveda written copy of the plan/instructions. If I have questions, I am aware that I should contact my do ctor. Patient/Product Support Representative Signature: Date/Time: Relationship to Patient: Witness Name/Signature: Date/Time: [id number] Note* Exam Date Time Procedure Performing Provider Status 07/01/23 8:40 AM Echocardiogram, Adult - CV Auth (Verified) [facility] 01-10-2024 Hospital Discharge instructions Patient Education 07/01/2023 03:30:18 Incision Care, Adult, Qoxk-im-Fcbe Incision Care, Adult An incision is a [...] cannot use soap and water, use hand paper roll machine operator. ?Change your bandage as told by your [...] even if your condition gets better. Take lgzf-bli-uuatfhy and prescription medicines only as told by [...] 08/30/2012 Document Revised: 10/26/2017 Document Reviewed: 02/13/2017 [employer] Patient Education 2020 [employer] 07/01/2023 03:30:11 3- SH TRANSCATHETER AORTIC VALVE REPLACEMENT (TAVR) [...] need to report the following to your stem frazer: Any draining or oozing from the site [...] in the first floor lobby of the [facility]. Please have lab work done around the same time, prior to your office visit. With:RUBIO REBOLLEDO MD Address: [address] [place] [address] [address] [place] [address] [phone] When:Within 4 Week(s) Comments:TAVR follow up; echo and lab work prior to office visit With:[facility] will contact you for an appointment in 4- 6weeks If you have any questions please call:[phone]. Address: When: Unknown With:CHI DURAN Address: [address] [place] [address]- Business (1) When:1-2 days [facility] 01-09-2024 Note* Exam Date Time Procedure Performing Provider Status 06/30/23 2:16 PM Echocardiogram, Adult - CV Auth (Verified) [facility] 01-09-2024 NoteSINUS RHYTHM VENTRICULAR PREMATURE COMPLEX BORDERLINE PROLONGED MD INTERVAL PROBABLE LATERAL INFARCT, AGE INDETERMINATE Electronic Signature: ELLE BARRETT MD 07/01/2023 14:26:49[facility] 01-09-2024 Note* Exam Date Time Procedure Performing Provider Status 06/30/23 12:16 PM Transcatheter Aortic Valve Replacement-C Auth (Verified) [facility] 01-09-2024 NoteSINUS RHYTHM BORDERLINE PROLONGED MD INTERVAL PROBABLE LATERAL INFARCT, AGE INDETERMINATE ABNRM T, CONSIDER ISCHEMIA, ANTEROLATERAL LDS Electronic Signature: ELLE BARRETT MD 07/01/2023 14:26:26[facility] 11-28-2023 Evaluation + Plan noteExtracted from: Title:History and Physical Author:SHRAVAN VEGA MD Date:05/19/23 1. CAD, positive stress test , pending C -S/p CABG x5 (LHC in 2020:-Patent REDDY-LAD, FELIBERTO-RCA, SVG-RI, SVG-OM1; occluded SVG-D1 graft) 2. [...] Appointments Appointment Date:05/21/2023 09:15:00 AM Scheduled Provider: Location:[facility] Appointment Type:PC Nurse Lab Appointment Date:05/25/2023 08:20:00 AM Scheduled Provider:CHI DURAN APRN, CNP Location:[facility] Appointment Type:PC OV Follow Up Appointment [...] Chest 2 Views (PA & Lateral) 01/06/23 [facility] 11-28-2023 Note Date of Service 05/19/23 [...] SHRAVAN VEGA MD on 05/19/2023 11:23 AM [facility] [id number] History and physical note Date of Service 05/19/23 Chief Complaint Exertional dyspnea x 6 months History of Present Illness Patient is a 77-year-old gentleman who is being admitted to same-day cardiac unit for [facility] followinga positive nuclear stress test earlier this morning. 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 He follows up with Dr. Munoz at [facility] office with last visit being on [...] patient, we decided to admit him for [facility]. Review of Systems CONSTITUTIONAL: Patient denies [...] Date: May 19, 2023 Verified By: SAGAR GALAVIZ MD CLINICAL STATEMENT: IMPRESSION: 1. Mild stress-induced reversible perfusion abnormality involving the anterior wall, with interval improvement, is identified.2. Cardiac systolic function is borderline with estimated ejection fraction of 52 %. Assessment/Plan 1. CAD, positive stress test, pending C -S/p CABG x5 (LHC in 2019:-Patent REDDY-LAD, FELIBERTO-RCA, SVG-RI, SVG-OM1; occluded SVG-D1 graft) 2. [...] Arthritis CAD (coronary artery disease) CAD IN [place] Chronic left hip pain CKD (chronic [...] Domestic Concerns: None. Living situation: Home/Independent. 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 Lives In: Multilevel home, Split level [...] SHRAVAN VEGA MD on 05/19/2023 11:52 AM [facility] [id number] History and physical note Date of Service [...] at baseline. He follows up with Dr. Munoz at [facility] office with last visit being on [...] Date: May 19, 2023 Verified By: SAGAR GALAVIZ MD CLINICAL STATEMENT: IMPRESSION: 1. Mild stress-induced reversible perfusion abnormality involving the anterior wall, with interval improvement, is identified.2. Cardiac systolic function is borderline with estimated ejection fraction of 52 %. Assessment/Plan 1. CAD, positive stress test, pending LHC -S/p CABG x5 (LHC in 2019:-Patent REDDY-LAD, FELIBERTO-RCA, SVG-RI, SVG-OM1; occluded SVG-D1 graft) 2. [...] Arthritis CAD (coronary artery disease) CAD IN [place] Chronic left hip pain CKD (chronic [...] Domestic Concerns: None. Living situation: Home/Independent. 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 Lives In: Multilevel home, Split level [...] SHRAVAN VEGA MD on 05/19/2023 11:52 AM [facility] [id number] Note ORIGINAL EXAMINATION: CARDIAC SPECT05/19/2023 10:37 am [...] fraction of 52 %. Interpreted by: Sagar Galaviz MD Preliminary Report By: Sagar Galaviz MD Electronically signed By Sagar Galaviz MD Dictated Date: 05/19/2023 10:52:42 AM Prelim Date: 05/19/2023 11:04:17 AM Sign Date: 05/19/2023 11:04:17 AM Ordering Provider: [facility]11-28-2023 Note Date of Service 05/19/23 Procedure: Exercise [...] SHRAVAN VEGA MD on 05/19/2023 11:23 AM [facility] [id number] Hospital Discharge instructions Patient Education 08/21/2021 07:43:11 5 - [facility] Post-op Instruction 01/2017 (38486) [facility] Post-operative Instructions PLEASE FOLLOW [facility] POST-OP INSTRUCTIONS GIVEN WATCH FOR SIGNS OF INFECTION: call the office ([phone]) if experencing any of the following: (Usually [...] on your follow up instructions. Form: 338A ([id number]) R: 10/26 Follow Up Care 07/03/2021 15:03:14 With:CHI DURAN APRN, CNP Address: [address] [place] [address]- When:08/29/2021 08:40:00 Comments:Follow-up as needed With:[facility] Address: [address] [place] [phone]- [phone] When:08/23/2021 13:30:00 Comments:This is your first physical therapy appointment. Follow-up as scheduled. With:ADONIS MADDEN PA-C, Orthopedic, Orthopedic Address: [facility] [address] [place] [address]- When:09/02/2021 08:45:00 Comments:This is your post-op appointment. Follow-up as scheduled. [facility] Evaluation + Plan note Future Appointments [...] Intact 11/29/21 * Complete Metabolic Panel 11/29/21 [facility] evaluation + Plan note Future Appointments Appointment Date:08/16/2021 [...] Intact 11/29/21 * Complete Metabolic Panel 11/29/21 [facility] Evaluation + Plan note Future Appointments Appointment Date:08/29/2021 08:40:00 AM Scheduled Provider:CHI DURAN APRN, CNP Location:[facility] Appointment Type:PC OV Hospital Follow-Up Appointment Date:11/28/2021 08:15:00 AM [...] Intact 11/29/21 * Complete Metabolic Panel 11/29/21 [facility] Evaluation + Plan note Future Appointments [...] Intact 11/29/21 * Complete Metabolic Panel 11/29/21 [facility] Evaluation + Plan note Future Appointments Appointment Date:05/29/2022 08:20:00 AM Scheduled Provider:CHI DURAN APRN, CNP Location:[facility] Appointment Type:PC OV Appointment Date:04/30/2023 08:30:00 AM Scheduled Provider: Location:[facility] Appointment Type:CV OV Future Scheduled Tests Laboratory* Renin, Plasma 11/29/21 * Microalbumin Level Urine 06/14/22 [facility] Evaluation + Plan note Future Appointments Appointment Date:11/24/2022 08:20:00 AM Scheduled Provider:CHI DURAN APRN, CNP Location:[facility] Appointment Type:PC OV Follow Up Appointment Date:04/30/2023 02:00:00 PM Scheduled Provider: Location:[facility] Appointment Type:CV OV Future Scheduled Tests Laboratory* Renin, Plasma 11/29/21 * Microalbumin Level Urine 06/14/22 * Microalbumin Level Urine 11/27/22 [facility] Evaluation + Plan note Future Appointments Appointment Date:04/30/2023 02:00:00 PM Scheduled Provider: Location:[facility] Appointment Type:CV OV Appointment Date:05/21/2023 09:15:00 AM Scheduled Provider: Location:[facility] Appointment Type:PC Nurse Lab Appointment Date:05/25/2023 08:20:00 AM Scheduled Provider:ROGER, CHI D KILN PACKER - GLAZIER ARTIST Location:[facility] Appointment Type:PC OV Follow Up Future Scheduled Tests Laboratory* Prostate Specific Antigen 05/26/23 * A1C Hemoglobin 05/26/23 * Complete Blood Count 05/26/23 * Lipid Profile 05/26/23 * Albumin/Creatinine Ratio, Random Urine 05/26/23 * Microalbumin Level Urine 06/14/22 * Microalbumin Level Urine 11/27/22 * Complete Metabolic Panel 05/26/23 [facility] Evaluation + Plan note Future Appointments Appointment Date:05/25/2023 11:00:00 AM Scheduled Provider:CHI DURAN APRN, CNP Location:[facility] Appointment Type: OV Hospital Follow-Up Appointment Date:06/04/2023 03:00:00 PM Scheduled Provider:LO MOORE MD Location:[facility] Appointment Type:CTS ELEVATING GRADER OPERATOR Outpatient Consult Appointment Date:06/18/2023 03:30:00 PM Scheduled [...] & Lateral) 01/06/23 * XR Panorex/Orthopantogram 05/21/23 [facility] Evaluation + Plan note Future Appointments Appointment Date:06/04/2023 03:00:00 PM Scheduled Provider:LO MOORE MD Location:[facility] Appointment Type:CTS ELEVATING GRADER OPERATOR Outpatient Consult Appointment Date:06/10/2023 01:00:00 PM Scheduled [...] Chest 2 Views (PA & Lateral) 01/06/23 [facility] Evaluation + Plan note Future Appointments [...] Chest 2 Views (PA & Lateral) 01/06/23 [facility] Evaluation + Plan note Future Appointments [...] Chest 2 Views (PA & Lateral) 01/06/23 [facility] Evaluation + Plan note Future Appointments [...] Chest 2 Views (PA & Lateral) 01/06/23 [facility] Evaluation + Plan note Future Appointments Appointment Date:09/07/2023 10:45:00 AM Scheduled Provider: Location:[facility] Appointment Type:CV OV Appointment Date:10/22/2023 08:00:00 AM Scheduled Provider: Location:[facility] Appointment Type:Echo - Echocardiogram Adult Appointment Date:12/10/2023 08:00:00 AM Scheduled Provider: Location:[facility] Appointment Type:PC Nurse Lab Appointment Date:12/14/2023 08:00:00 AM Scheduled Provider:CHI DURAN APRN, CNP Location:[facility] Appointment Type:PC OV Follow Up Future [...] Chest 2 Views (PA & Lateral) 01/06/23 [facility] Evaluation + Plan note Future Appointments Appointment Date:12/10/2023 08:00:00 AM Scheduled Provider: Location:[facility] Appointment Type:PC Nurse Lab Appointment Date:12/14/2023 08:00:00 AM Scheduled Provider:CIH DURAN APRN, CNP Location:[facility] Appointment Type:PC [...] Chest 2 Views (PA & Lateral) 01/06/23 [facility] Evaluation + Plan note Future Appointments Appointment Date:05/02/2024 01:00:00 PM Scheduled Provider: Location:[facility] Appointment Type:CV OV Appointment Date:06/09/2024 08:15:00 AM Scheduled Provider: Location:[facility] Appointment Type:PC Nurse Lab Appointment Date:06/27/2024 08:00:00 AM Scheduled Provider:CHI DURAN KILN PACKER - GLAZIER ARTIST Location:[facility] Appointment Type:PC OV Future Scheduled Tests [...] Chest 2 Views (PA & Lateral) 01/06/23 [facility] Evaluation + Plan note Future Appointments Appointment Date:05/02/2024 01:00:00 PM Scheduled Provider: Location:[facility] Appointment Type:CV OV Appointment Date:06/09/2024 08:15:00 AM Scheduled Provider: Location:[facility] Appointment Type:PC Nurse Lab Appointment Date:06/27/2024 08:00:00 AM Scheduled Provider:CHI DURAN APRN, CNP Location:[facility] Appointment Type:PC OV Future Scheduled Tests [...] Panel 06/14/24 * Complete Metabolic Panel 06/14/24 [facility] Evaluation + Plan note Future Appointments Appointment Date:06/27/2024 08:00:00 AM Scheduled Provider:CHI DURAN APRN, CNP Location:[facility] Appointment Type:PC OV Appointment Date:07/04/2024 01:30:00 PM Scheduled Provider:TIFFANIE MUNOZ Location:[facility] Appointment Type:CV OV Future Scheduled Tests Laboratory* PSA Total+% Free 06/14/24 * A1C Hemoglobin 06/14/24 * Complete Blood Count 06/14/24 * Lipid Profile 06/14/24 * Albumin/Creatinine Ratio, Random Urine 05/26/23 * Albumin/Creatinine Ratio, Random Urine 06/14/24 * Albumin/Creatinine Ratio, Random Urine 06/14/24 * PTH, Intact 06/14/24 * Vitamin D Level 06/14/24 * Complete Metabolic Panel 06/14/24 [facility] Evaluation + Plan note Future Appointments Appointment Date:07/04/2024 01:30:00 PM Scheduled Provider:TIFFANIE MUNOZ Location:[facility] Appointment Type:CV OV Future Scheduled Tests [...] Panel 06/14/24 * Complete Metabolic Panel 12/25/24 [facility] Evaluation + Plan note Future Appointments Appointment Date:04/06/2025 08:30:00 AM Scheduled Provider:TIFFANIE MUNOZ Location:[facility] Appointment Type:CV OV Future Scheduled Tests [...] Panel 06/14/24 * Complete Metabolic Panel 12/25/24 [facility] Evaluation + Plan note Future Appointments Appointment Date:04/06/2025 08:30:00 AM Scheduled Provider:TIFFANIE MUNOZ Location:[facility] Appointment Type:CV OV Future Scheduled [...] Panel 06/14/24 * Complete Metabolic Panel 12/25/24 [facility] Evaluation + Plan note Future Appointments Appointment Date:04/06/2025 08:30:00 AM Scheduled Provider:TIFFANIE MUNOZ [facility] Appointment Type:CV OV Future Scheduled Tests [...] Panel 10/17/24 * Complete Metabolic Panel 06/14/24 [facility] Evaluation + Plan note Future Appointments Appointment Date:04/06/2025 08:30:00 AM Scheduled Provider:TIFFANIE MUNOZ Location:[facility] Appointment Type:CV OV Appointment Date:07/11/2025 08:00:00 AM Scheduled Provider: Location:[facility] Appointment Type:PC Nurse Lab Appointment Date:07/13/2025 07:00:00 AM Scheduled Provider:CHI DURAN APRN, CNP Location:[facility] Appointment Type:PC OV Future Scheduled Tests Laboratory* PSA Total+% Free 06/14/24 * Amylase Level 10/17/24 * Iron Level 07/16/25 * Prostate Specific Antigen 07/16/25 * A1C Hemoglobin 07/16/25 * Complete Blood Count 06/14/24 * Complete Blood Count 07/16/25 * Lipid Profile 06/14/24 * Lipid Profile 07/16/25 * Albumin/Creatinine Ratio, Random Urine 06/14/24 * Albumin/Creatinine Ratio, Random Urine 06/14/24 * Albumin/Creatinine Ratio, Random Urine 07/16/25 * PTH, Intact 06/14/24 * PTH, Intact 07/16/25 * Vitamin D Level 06/14/24 * Vitamin D Level 07/16/25 * Complete Metabolic Panel 06/14/24 * Complete Metabolic Panel 07/16/25 * TIBC 07/16/25 [facility] Evaluation + Plan note Future Appointments Appointment Date:07/11/2025 08:00:00 AM Scheduled Provider: Location:[facility] Appointment Type:PC Nurse Lab Appointment Date:07/11/2025 03:00:00 PM Scheduled Provider:TIFFANIE MUNOZ Location:[facility] Appointment Type:CV OV Appointment Date:07/13/2025 07:00:00 AM Scheduled Provider:CHI DURAN APRN, CNP Location:[facility] Appointment Type:PC OV Future Scheduled Tests Laboratory* PSA Total+% Free 06/14/24 * Amylase Level 10/17/24 * Iron Level 07/16/25 * Prostate Specific Antigen 07/16/25 * A1C Hemoglobin 07/16/25 * Complete Blood Count 06/14/24 * Complete Blood Count 07/16/25 * Lipid Profile 06/14/24 * Lipid Profile 07/16/25 * Albumin/Creatinine Ratio, Random Urine 06/14/24 * Albumin/Creatinine Ratio, Random Urine 06/14/24 * Albumin/Creatinine Ratio, Random Urine 07/16/25 * PTH, Intact 06/14/24 * PTH, Intact 07/16/25 * Vitamin D Level 06/14/24 * Vitamin D Level 07/16/25 * Complete Metabolic Panel 06/14/24 * Complete Metabolic Panel 07/16/25 * TIBC 07/16/25 [facility] Evaluation noteNo assessment information available [facility] Work Phone: Evaluation note* Diagnosis Onset Date Resolution Status Admit Date LUE weakness acute November 26 9:50pm [facility] Work Phone: History and physical note Author Josefa Roberts [facility] Note Date/Time November 26, 2024 10:20 pm [facility] Medical Records Department [address] [place] [address] H&P Exam - Hospitalist 11/26/[id number] MR#: [id number] Acct: [id number] Name: IVAN SALAS Rep #:[id number] : 1945 79 From: Josefa Roberts MD PCP: ISABELL Bush tus:ADM MARINO Location: [place] [address] HPI - General General Date of Admission: 11/26/24 Date of Service: 11/26/24 Chief Complaint: LUE weakness. HPI Narrative The patient is a 79 y/o M w/ PMHx: CKD, Chronic macrocytic anemia, Valvular heart disease, CAD s/p CABG x 5 remotely 2010 at [place], HTN, HLD, OA, BPH withobstructive pathology who presents to the [facility] ED on 11/26/24 with history of onsetat approximately 8:30 PM on day of presentation left upper extremity weakness prompting immediate transition to the ED for evaluation. Initial ED physician NIH stroke scale assessment 2 for left upper extremity ataxia and mild weakness. Family and patient do report that he has been having for the last several weeksepisodes of lightheadedness and has frequently checked his blood pressure when this is occurred and noted that it has been low. He recently decreased his metoprolol and 3 days prior to current presentation stopped his ramipril and hashad some improvement. He does have a follow-up with ENT as he was not sure why he was having this. Workup in the ED included T97.2, heart rate 75, BP 144/70, respiratory rate 18, 95% on room air, CBC with WBC 6.2, hemoglobin 12, MCV 100.9, platelet 159 without marked shift, unremarkable coags, BMP with BUN/creat33/2.24, GFR 29 otherwise not marked appearing, troponin 35, CT of the brain with no acute intracranial findings, CTA head and neck no large vessel occlusion, aneurysm or AVM with mild scattered calcific plaque, chest x-ray withno acute cardiopulmonary findings, EKG with sinus rhythm with PVC with no acute evidence of ischemia. Stroke alert was initiated and recommendation to forego TNK given decreased NIH stroke scale low score however neurologist did recommendloading patient with aspirin and Plavix with admission for further CVA/TIA evaluation. Per Neurologist repeat NIHSS patient improved to 0. In the ED per neurology recommendations noted patient administered full-strength aspirin therapy and Plavix 70 mg p.o. x 1. PFSH Medical History CKD (chronic kidney disease) BPH (benign prostatic hyperplasia) Chronic anemia HLD (hyperlipidemia) HTN (hypertension) Valvular heart disease CAD (coronary artery disease) Home Medications ?Medication ?Instructions ?Recorded ?Last Taken ?Type aspirin 81 mg capsule 81 mg PO DAILY 11/26/24 Unkn own History cholecalciferol (vitamin D3) 25 1,000 unit PO QDAY 01/13 Unknown History mcg (1,000 unit) capsule (Vitamin D3) finasteride 5 mg tablet 5 mg PO DAILY 11/26/24 Unkno wn History metoprolol succinate 25 mg 12.5 mg PO DAILY 11/26/24 U nknown History tablet,extended release 24 hr rosuvastatin 40 mg tablet 40 mg PO DAILY 11/26/24 Unkn own History tamsulosin 0.4 mg capsule 0.4 mg PO DAILY 11/26/24 Unk nown History Allergy/AdvReac Type Severity Reaction Status Date / Time No Known Allergies Allergy Verified 11/26/24 20:48 Family History Mother , while attempting CABG x 4. CAD (coronary artery disease) Hypertension Heart disease Myocardial infarction Other Prostate cancer Surgical History History of tonsillectomy and adenoidectomy Hx of aortic valve replacement Hx of bilateral hip replacements History of bilateral knee replacement Hx of coronary artery bypass surgery Social History household members: spouse Smoking Status: Never smoker alcohol intake: never substance use type: does not use ROS ROS Narrative Admission Review of Systems: CONSTITUTIONAL: No weight loss, fever, chills, + weakness or fatigue. HEENT: + Lightheadedness, near syncope. Eyes: No visual loss, blurred vision, double vision or yellow sclerae. Ears, Nose, Throat: No hearing loss, sneezing, congestion, runny nose or sore throat. SKIN: No rash or itching, lesions, wounds. CARDIOVASCULAR: + Lightheadedness, near syncope. No chest pain, chest pressure or chest discomfort, palpitations, edema, orthopnea. RESPIRATORY: No shortness of breath, cough or sputum, wheezing, hemoptysis. GASTROINTESTINAL: No anorexia, nausea, vomiting or diarrhea, abdominal pain, melena, BRBPR. GENITOURINARY: No dysuria, frequency, urgency or retention. NEUROLOGICAL: + Left upper extremity weakness, lightheadedness/near syncope. No headache, paralysis, change in bowel or bladder control, seizure. MUSCULOSKELETAL: No muscle, back pain, joint pain or stiffness. HEMATOLOGIC: + Chronic anemia, easy bleeding/bruising. LYMPHATICS: No enlarged nodes. No history of splenectomy. PSYCHIATRIC: No history of depression or anxiety. ENDOCRINOLOGIC: No reports of sweating, cold or heat intolerance. No polyuria orpolydipsia. ALLERGIES: No history of asthma, hives, eczema or rhinitis. Vital Signs Vital Signs Vital Signs: 11/26/24 20:49 11/26/24 20:51 11/26/24 21:00 Temperature 97.2 F L Temperature Source Temporal Pulse Rate 72 75 Respiratory Rate 16 18 Blood Pressure 144/70 H 144/70 H Blood Pressure Mean 94 94 Pulse Ox 94 95 98 Oxygen Delivery Method Room Air Room Air Room Air 11/26/24 21:05 11/26/24 21:30 Temperature Temperature Source Pulse Rate 65 83 Respiratory Rate 18 18 Blood Pressure 140/91 H 126/83 H Blood Pressure Mean 107 97 Pulse Ox 99 98 Oxygen Delivery Method Room Air Room Air Weight Weight: 214 lb 1.102 oz Body Mass Index (BMI) 28.2 Physical Exam Narrative Physical Examination: General: Awake, alert, oriented x 3 and cooperative, seated upright in the ED bed, no acute distress, notes left upper extremity feels much improved But still not exactly at his baseline. Skin: Normal color, normal turgor, no icterus, no cyanosis except occasional stage ecchymoses, abrasion HEENT: AT/NC, EOMI, PERRLA, MMM, no carotid bruits or JVD noted. Lungs: Mildly diminished, greater bases, proper effort no rales, ronchi or wheezing. Heart: Regular rate and rhythm; no gallop, rub audible, + SM. Abdomen: Soft, NTTP, ND, mildly hyperactive BS, no HSM. Extremities: No cyanosis, clubbing, or edema. Neurological: Patient awake, alert, oriented as noted, cognitive function intact; pupils equally reactive to light and accommodation, cranial nerves grossnormal, moving all 4 extremities, no focal deficits, strength preserved, sensation intact, finger-nose and [id number]-[id number] appropriate, equivocal Babinski assessment, fish stringer assembler strength bilaterally appropriate. Psychiatric: Affect appears normal, very interactive, no acute evidence of depressive or anxiety feelings. Results Lab / Micro Data 11/26/24 20:50 11/26/24 20:50 Labs: Laboratory Results - last 24 hr 11/26/24 20:49: POC Glucose 97 11/26/24 20:50: WBC 6.2, RBC 3.43 L, Hgb 12.0 L, Hct 34.6 L, MCV 100.9 H, MCH 35.0 H, MCHC 34.7, RDW Std Deviation 52.6 H, RDW Coeff of Michelle 14.2, Plt Count 159, MPV 8.7, Immature Gran % (Auto) 0.300, Neut % (Auto) 64.9, Lymph % (Auto) 22.9, [place] % (Auto) 9.3, Eos % (Auto) 2.4, Baso % (Auto) 0.2, Absolute Neuts (auto) 4.0, Absolute Lymphs (auto) 1.41, Nucleated RBC % 0, PT 13.8, INR 1.0, APTT 26.8, Sodium 138, Potassium 4.1, Chloride 103, Carbon Dioxide 23.4, Anion Gap 12, BUN 33 H, Creatinine 2.24 H, Estim Creat Clear Calc 33.36 L, Est GFR (MDRD) Non-Af 29 L, BUN/Creatinine Ratio 14.7, Glucose 96, Calcium 9.7, TroponinT High Sens 35 H Imaging Radiology Impression Brain CT 11/26/24 20:54 IMPRESSION: No acute intracranial finding. Reading Location: [id number] Head/Neck CTA 11/26/24 20:54 IMPRESSION: 1. No large vessel occlusion, aneurysm or AVM. 2. Mild scattered calcific plaque as described. Dr. Diaz discussed these findings via telephone with Dr. Estrada at 9:30 p.m.on 11/26/2024. Reading Location: [id number] Chest X-Ray 11/26/24 21:25 IMPRESSION: No Acute Findings. Reading Location: [id number] Assessment & Plan Assessment/Plan (1) LUE weakness: PLAN: Plan The patient is a 79 y/o M w/ PMHx: CKD, Chronic macrocytic anemia, Valvular heart disease, CAD s/p CABG x 5 remotely 2010 at [place], HTN, HLD, OA, BPH withobstructive pathology who presents to the [facility] ED on 11/26/24 with history of onsetat approximately 8:30 PM on day of presentation left upper extremity weakness prompting immediate transition to the ED for evaluation. Initial ED physician NIH stroke scale assessment 2 for left upper extremity ataxia and mild weakness. #1. Left upper extremity weakness concerning for TIA/CVA: Will admit to PCU, will obtain MRI Brain, ECHO, PT/OT/Speech/Nutrition evaluation per protocol. Will allow permissive HTN, in the ED patient was loaded with aspirin and Plavix,will continue baby aspirin and low-dose Plavix starting 11/27/2024, statin w/ AM FLP, fall precautions. Mag, TSH, FLP, HgbA1c requested. Maintain on fall and aspiration precautions. Will continue neurology consultation. #2. CAD with indeterminate cardiac enzyme, possibly mildly elevated especially given underlying renal disease with recently reported lightheadedness/dizziness with intermittent hypotension, suspect orthostasis: Status post CABG x 5 remotely in 2009 at [place], will continue aspirin, statin, temporarily holding metoprolol and lisinopril given need for permissive hypertension as noted above #1, add back once clinically appropriate. Current presentation with troponin 35, EKG with sinus rhythm with PVC with no acute evidence of ischemia, will maintain on telemetry, magnesium level requested, FLP in AM, obtain orthostatics, temporarily holding hypertensive regimen as noted for permissive hypertension but once added back may need to assure vital signs stay appropriatewith positional changes, echo requested as noted. 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 Arechiga of these recent medication changes that he has made in his symptoms. #3. Possible Chronic Kidney Disease Stage IV, unclear as no recent labs, prior was more consistent with stage II but remote labs versus possible GUMARO versus acute renal insufficiency/elevated creatinine, uncertain: Admission BUN/Cr 33/2.24, GFR 29, baseline renal function 1.0-1.3 however these labs are remote from 2012, but from discussion with family suspect likely at least CKD stage IIIif not stage IV and he does follow with nephrology. Will repeat BMP in AM to further elucidate current baseline. #4. Valvular heart disease: Status post AVR, no noted echocardiogram in the system, pending as noted above. #5. Hypertension: Will temporally hold home regimen of metoprolol for permissive hypertension, as needed agents per stroke protocol, add back oral regimen once clinically appropriate. From prior records had been on ACEI also, clarifying. #6. Hyperlipidemia: Continue home statin regimen. AM FLP. #7. Chronic macrocytic anemia: Admission hemoglobin 12, MCV 100.9, baseline hemoglobin noted remotely to very, most recently however 02/04/2016 hemoglobin atthat time 14 with no recent labs for comparison, will repeat CBC in a.m. to further elucidate current baseline. #8. BPH with obstructive pathology: Will continue patient home finasteride and Flomax regimen, will continue to monitor for urinary retention. #9. DVT prophylaxis: Lovenox. #10. CODE status: Patient CARLITOS is who is present and living will is in place family believes. Discussed CODE status at length including difference between FULL code, DNR-CCA and DNR-CC status. Following discussions about the differences in these status, requested Full Code status. Charges/Coding Visit Charges Inpatient E&M: 33204 Init Hosp L3 11/26/242219 <Electronically signed by Josefa Roberts MD> Cosigner Signature (if applicable): CC: ELEVATING GRADER OPERATORVerónica Duran; Dr. Josefa Roberts MD~ Signed [facility] Work Phone: Hospital course Narrative No data available for this section [facility] Hospital Discharge instructions No data available for this section [facility] Progress note No data available for this section [facility] Reason for referral (narrative)No reason for referral information availableW[facility] Work Phone: Advance Directives No Advanced Directives Records Found Advance Directive Response Recorded Date/ Time Living Will No March 05, 2014 7:28pm Power of Maintenance Mechanic [place] No February 7:28pm Advance Directive Response Recorded Date/ Time Do you have a Healthcare Power of Maintenance Mechanic [place]? No November 26, 2024 9:00pm Advance Directive Response Recorded Date/ Time Do you have a Healthcare Power of Maintenance Mechanic [place]? Yes November 26, 2024 11:14pm Summary Purpose Family History Relationship Condition Age at Onset Recorded Date/T augustin Not Specified Malignant neoplasm of prostate Unknown mother Coronary artery disease Unknown Hypertension Unknown Cardiac disease Unknown Myocardial infarction Unknown No Family History Records Found Chief Complaint and Reason for Visit Chief Complaint Admit Date TIA/CVA November 26, 2024 9:50p m TIA/CVA November 27, 2024 2:39p m Reason for Visit Admit Date LUE weakness November 26, 2024 9:50p m Chief Complaint Admit Date TIA/CVA November 26, 2024 9:50p m Chief Complaint Admit Date TIA/CVA November 26, 2024 9:50p m TIA/CVA November 27, 2024 2:39p m TIA/CVA November 28, 2024 11:01 am TIA December 03, 2024 9:17 am STROKE December 28, 2024 10:57 am Additional Source Comments Care Team (unrecognized sect ion and content) Care Team Personnel Name: ABISAI MUNOZ MD Position: P4 Physician - Cardiology Member Role: Melter Operator Address: Address: [address] [facility] [place] [address]- [place] Name: CHI DURAN KILN PACKER - GLAZIER ARTIST Position: P4 Advanced Practice Nurse Member Role: Primary Care Physician Address: Address: [address] [facility] [facility] [place] [address]- [place] Care Team Related Persons Name: DAPHNIE BROWN Name: JR WOLFE Name: URIEL SALAS Address: Home [address] [place], [place] [id number] [place] Care Teams (unrecognized sec tion and content) Team Status: Active Member Role Status Dates Chi Duran Family Provider Active Chi Duran ELEVATING GRADER OPERATOR, ELEVATING GRADER OPERATOR-C Primary Care Provider Active Team Status: Inactive Member Role Status Dates Chi Duran ELEVATING GRADER OPERATOR, ELEVATING GRADER OPERATOR-C Primary Care Provider Active Dr. Gregorio Neal MD Attending Provider Active Team Status: Active Member Role Status Dates Chi Duran ELEVATING GRADER OPERATOR, ELEVATING GRADER OPERATOR-C Primary Care Provider Active Team Status: Active Member Role Status Dates Chi Duran ELEVATING GRADER OPERATOR, ELEVATING GRADER OPERATOR-C Primary Care Provider Active Start: November 26, 2024 Dr. Arnol Estrada DO Emergency Provider Active Start: November 26, 2024 Dr. Josefa Roberts MD Admit Provider Active St art: November 26, 2024 Dr. Josefa Roberts MD Attending Provider Active Start: November 26, 2024 Dr. Josefa Roberts MD Other Provider Active St art: November 26, 2024 Team Status: Inactive Member Role Status Dates Chi Duran ELEVATING GRADER OPERATOR, ELEVATING GRADER OPERATOR-C Primary Care Provider Active Start: November 26, 2024 End: November 28, 2024 Dr. Arnol Estrada DO Emergency Provider Active Start: November 26, 2024 End: November 28, 2024 Dr. Josefa Roberts MD Admit Provider Active St art: November 26, 2024 End: November 28, 2024 Dr. Josefa Roberts MD Other Provider Active St art: November 26, 2024 End: November 28, 2024 Dick Montana MD Other Provider Active Start: 2024 End: November 28, 2024 Dr. Zia Goldstein MD Other Provider Active Start: November 26, 2024 End: November 28, 2024 Idalia Mitchell MD Other Provider Active Start : November 26, 2024 End: November 28, 2024 Dr. Veronique Nice DO Other Provider Active St art: November 26, 2024 End: November 28, 2024 Dr. Tori Rivera MD Other Provider Active Start: November 26, 2024 End: November 28, 2024 Dr. Agusto Clay MD Other Provider Active Sta rt: November 26, 2024 End: November 28, 2024 Dr. Carissa Graham MD Other Provider Active Start : November 26, 2024 End: November 28, 2024 Dr. Hernando Clifton MD Other Provider Active Start: November 26, 2024 End: November 28, 2024 Dr. Ivan Rivera MD Other Provider Active Start : November 26, 2024 End: November 28, 2024 Dr. Samuel Mills MD Other Provider Active Sta rt: November 26, 2024 End: November 28, 2024 Anabel Schmitt MD Other Provider Active Start : November 26, 2024 End: November 28, 2024 Dr. Vinay Rubin MD Other Provider Active St art: November 26, 2024 End: November 28, 2024 Dr. Myesha Erickson MD Other Provider Active Start : November 26, 2024 End: November 28, 2024 Dr. Layo Pittman MD Other Provider Active Sta rt: November 26, 2024 End: November 28, 2024 Dr. Ottoniel Vital MD Other Provider Active Start: November 26, 2024 End: November 28, 2024 Dr. Jarad Meyer MD Other Provider Active St art: November 26, 2024 End: November 28, 2024 Dr. July Dumont MD Other Provider Active Star t: November 26, 2024 End: November 28, 2024 Dr. Yariel Lin MD Other Provider Active St art: November 26, 2024 End: November 28, 2024 Dr. Yoli Tinoco MD Other Provider Active Start: November 26, 2024 End: November 28, 2024 Trevor Cummins MD Other Provider Active Start: November 26, 2024 End: November 28, 2024 Dr. Thompson Payne DO Attending Provider Active Start: November 26, 2024 End: November 28, 2024 Team Status: Active Member Role Status Dates Chi Bro Roger ELEVATING GRADER OPERATOR, ELEVATING GRADER OPERATOR-C Primary Care Provider Active Start: November 27, 2024 Dr. Arnol Estrada DO Emergency Provider Active Start: November 27, 2024 Dr. Josefa Roberts MD Admit Provider Active St art: November 27, 2024 Dr. Josefa Roberts MD Other Provider Active St art: November 27, 2024 Dick Montana MD Other Provider Active Start: 2024 Dr. Zia Goldstein MD Other Provider Active Start: November 27, 2024 Idalia Mitchell MD Other Provider Active Start : November 27, 2024 Dr. Veronique Nice DO Other Provider Active St art: November 27, 2024 Dr. Tori Rivera MD Other Provider Active Start: November 27, 2024 Dr. Agusto Clay MD Other Provider Active Sta rt: November 27, 2024 Dr. Carissa Graham MD Other Provider Active Start : November 27, 2024 Dr. Hernando Clifton MD Other Provider Active Start: November 27, 2024 Dr. Ivan Rivera MD Other Provider Active Start : November 27, 2024 Dr. Samuel Mills MD Other Provider Active Sta rt: November 27, 2024 Anabel Schmitt MD Other Provider Active Start : November 27, 2024 Dr. Vinay Rubin MD Other Provider Active St art: November 27, 2024 Dr. Myesha Erickson MD Other Provider Active Start : November 27, 2024 Dr. Layo Pittman MD Other Provider Active Sta rt: November 27, 2024 Dr. Ottoniel Vital MD Other Provider Active Start: November 27, 2024 Dr. Jarad Meyer MD Other Provider Active St art: November 27, 2024 Dr. July Dumont MD Other Provider Active Star t: November 27, 2024 Dr. Yariel Lin MD Other Provider Active St art: November 27, 2024 Dr. Yoli Tinoco MD Other Provider Active Start: November 27, 2024 Trevor Cummins MD Other Provider Active Start: November 27, 2024 Dr. Thompson Payne DO Attending Provider Active Start: November 27, 2024 Dr. Thompson Payne DO Other Provider Active S tart: November 27, 2024 Team Status: Active Member Role Status Dates Chi Duran ELEVATING GRADER OPERATOR, ELEVATING GRADER OPERATOR-C Primary Care Provider Active Start: November 28, 2024 Dr. Janee Chicas MD Attending Provider Active Start: November 28, 2024 Team Status: Active Member Role/Relationship Status Dates Chi Duran ELEVATING GRADER OPERATOR, ELEVATING GRADER OPERATOR-C Primary Care Provider Active Team Status: Inactive Member Role/Relationship Status Dates Chi Duran ELEVATING GRADER OPERATOR, ELEVATING GRADER OPERATOR-C Primary Care Provider Active Start: November 26, 2024 End: November 28, 2024 Dr. Arnol Estrada DO Emergency Provider Active Start: November 26, 2024 End: November 28, 2024 Dr. Josefa Roberts MD Admit Provider Active St art: November 26, 2024 End: November 28, 2024 Dr. Josefa Roberts MD Other Provider Active St art: November 26, 2024 End: November 28, 2024 Dick Montana MD Other Provider Active Start: 2024 End: November 28, 2024 Dr. Zia Goldstein MD Other Provider Active Start: November 26, 2024 End: November 28, 2024 Idalia Mitchell MD Other Provider Active Start : November 26, 2024 End: November 28, 2024 Dr. Veronique Nice DO Other Provider Active St art: November 26, 2024 End: November 28, 2024 Dr. Tori Rivera MD Other Provider Active Start: November 26, 2024 End: November 28, 2024 Dr. Agusto Clay MD Other Provider Active Sta rt: November 26, 2024 End: November 28, 2024 Dr. Carissa Graham MD Other Provider Active Start : November 26, 2024 End: November 28, 2024 Dr. Hernando Clifton MD Other Provider Active Start: November 26, 2024 End: November 28, 2024 Dr. Ivan Rivera MD Other Provider Active Start : November 26, 2024 End: November 28, 2024 Dr. Samuel Mills MD Other Provider Active Sta rt: November 26, 2024 End: November 28, 2024 Anabel Schmitt MD Other Provider Active Start : November 26, 2024 End: November 28, 2024 Dr. Vinay Rubin MD Other Provider Active St art: November 26, 2024 End: November 28, 2024 Dr. Myesha Erickson MD Other Provider Active Start : November 26, 2024 End: November 28, 2024 Dr. Layo Pittman MD Other Provider Active Sta rt: November 26, 2024 End: November 28, 2024 Dr. Ottoniel Vital MD Other Provider Active Start: November 26, 2024 End: November 28, 2024 Dr. Jarad Meyer MD Other Provider Active St art: November 26, 2024 End: November 28, 2024 Dr. July Dumont MD Other Provider Active Star t: November 26, 2024 End: November 28, 2024 Dr. Yariel Lin MD Other Provider Active St art: November 26, 2024 End: November 28, 2024 Dr. Yoli Tinoco MD Other Provider Active Start: November 26, 2024 End: November 28, 2024 Trevor Cummins MD Other Provider Active Start: November 26, 2024 End: November 28, 2024 Dr. Thompson Payne DO Attending Provider Active Start: November 26, 2024 End: November 28, 2024 Team Status: Active Member Role/Relationship Status Dates Chi Duran ELEVATING GRADER OPERATOR, ELEVATING GRADER OPERATOR-C Primary Care Provider Active Start: November 27, 2024 Dr. Arnol Estrada DO Emergency Provider Active Start: November 27, 2024 Dr. Josefa Roberts MD Admit Provider Active St art: November 27, 2024 Dr. Josefa Roberts MD Other Provider Active St art: November 27, 2024 Dick Montana MD Other Provider Active Start: 2024 Dr. Zia Goldstein MD Other Provider Active Start: November 27, 2024 Idalia Mitchell MD Other Provider Active Start : November 27, 2024 Dr. Veronique Nice DO Other Provider Active St art: November 27, 2024 Dr. Tori Rivera MD Other Provider Active Start: November 27, 2024 Dr. Agusto Clay MD Other Provider Active Sta rt: November 27, 2024 Dr. Carissa Graham MD Other Provider Active Start : November 27, 2024 Dr. Hernando Clifton MD Other Provider Active Start: November 27, 2024 Dr. Ivan Rivera MD Other Provider Active Start : November 27, 2024 Dr. Samuel Mills MD Other Provider Active Sta rt: November 27, 2024 Anabel Schmitt MD Other Provider Active Start : November 27, 2024 Dr. Vinay Rubin MD Other Provider Active St art: November 27, 2024 Dr. Myesha Erickson MD Other Provider Active Start : November 27, 2024 Dr. Layo Pittman MD Other Provider Active Sta rt: November 27, 2024 Dr. Ottoniel Vital MD Other Provider Active Start: November 27, 2024 Dr. Jarad Meyer MD Other Provider Active St art: November 27, 2024 Dr. July Dumont MD Other Provider Active Star t: November 27, 2024 Dr. Yariel Lin MD Other Provider Active St art: November 27, 2024 Dr. Yoli Tinoco MD Other Provider Active Start: November 27, 2024 Trevor Cummins MD Other Provider Active Start: November 27, 2024 Dr. Thompson Payne DO Attending Provider Active Start: November 27, 2024 Dr. Thompson Payne DO Other Provider Active S tart: November 27, 2024 Team Status: Active Member Role/Relationship Status Dates Chi Duran ELEVATING GRADER OPERATOR, ELEVATING GRADER OPERATOR-C Primary Care Provider Active Start: November 28, 2024 Dr. Janee Chicas MD Attending Provider Active Start: November 28, 2024 Team Status: Active Member Role/Relationship Status Dates Chi Duran ELEVATING GRADER OPERATOR, ELEVATING GRADER OPERATOR-C Primary Care Provider Active Start: November 28, 2024 Dr. Arnol Estrada DO Emergency Provider Active Start: November 28, 2024 Dr. Josefa Roberts MD Admit Provider Active St art: November 28, 2024 Dr. Josefa Roberts MD Other Provider Active St art: November 28, 2024 Dick Montana MD Other Provider Active Start: 2024 Dr. Zia Goldstein MD Other Provider Active Start: November 28, 2024 Idalia Mitchell MD Other Provider Active Start : November 28, 2024 Dr. Veronique Nice DO Other Provider Active St art: November 28, 2024 Dr. Tori Rivera MD Other Provider Active Start: November 28, 2024 Dr. Agusto Clay MD Other Provider Active Sta rt: November 28, 2024 Dr. Carissa Graham MD Other Provider Active Start : November 28, 2024 Dr. Hernando Clifton MD Other Provider Active Start: November 28, 2024 Dr. Ivan Rivera MD Other Provider Active Start : November 28, 2024 Dr. Samuel Mills MD Other Provider Active Sta rt: November 28, 2024 Anabel Schmitt MD Other Provider Active Start : November 28, 2024 Dr. Vinay Rubin MD Other Provider Active St art: November 28, 2024 Dr. Myesha Erickson MD Other Provider Active Start : November 28, 2024 Dr. Layo Pittman MD Other Provider Active Sta rt: November 28, 2024 Dr. Ottoniel Vital MD Other Provider Active Start: November 28, 2024 Dr. Jarad Meyer MD Other Provider Active St art: November 28, 2024 Dr. July Dumont MD Other Provider Active Star t: November 28, 2024 Dr. Yariel Lin MD Other Provider Active St art: November 28, 2024 Dr. Yoli Tinoco MD Other Provider Active Start: November 28, 2024 Trevor Cummins MD Other Provider Active Start: November 28, 2024 Dr. Thompson Payne DO Attending Provider Active Start: November 28, 2024 Dr. Thompson Payne DO Other Provider Active S tart: November 28, 2024 Team Status: Active Member Role/Relationship Status Dates Dr. Thompson Payne DO Attending Provider Active Start: December 03, 2024 Dr. Thompson Payne DO Referring Provider Active Start: December 03, 2024 Chi Duran ELEVATING GRADER OPERATOR, ELEVATING GRADER OPERATOR-C Primary Care Provider Active Start: December 03, 2024 Team Status: Inactive Member Role/Relationship Status Dates Chi Duran ELEVATING GRADER OPERATOR, ELEVATING GRADER OPERATOR-C Primary Care Provider Active Start: December 28, 2024 End: December 28, 2024 Chi Duran NP, ELEVATING GRADER OPERATOR-C Referring Provider Bernabe chambers Start: December 28, 2024 End: December 28, 2024 ISABELL Lieberman Attending Provider Active S tart: December 28, 2024 End: December 28, 2024 Goals (unrecognized section and content) Goals may be documented in a n alternate section (unrecognized sect ion and content) No Status Records FoundNo Status Records FoundNo Status Records Found INFORMATION SOURCE (unrecogn ized section and content) DATE CREATED AUTHOR 02/24/2024 [facility] DATE CREATED AUTHOR AUTHOR'S ORGANIZ ATION 01/16/2025 [facility] DATE CREATED AUTHOR AUTHOR'S ORGANIZ ATION 04/28/2025 [facility] FOR RECORDS PERTAINING TO PATIENTS WHO ARE [...] BE BASED ON THE PRIMARY CLINICAL RECORDS. [facility] [employer] [facility] provides no warranty or guarantee of the accuracy or completeness of information in this document.
[2025-05-29] MEDS: 0.9% Normal Saline (1000mL) 1,000 ML 999 ML IV (06:37)
[2025-05-29 06:38] LABS: Partial Thromboplast Time 25.9 Seconds (24.1-36.2); Prothrombin Time (Protime)PT. 14.1 SECONDS (11.7-14.9)
[2025-05-29 06:51] LABS: Anion Gap 9 (5-15); BUN 24 mg/dL (4-19); BUN/Creat Ratio 15.7 RATIO (10-20); Calcium,Total 9.5 mg/dL (7.6-11.0); Carbon Dioxide 25.2 mmol/L (21.0-32.0); Chloride 106 mmol/L (98-108); Estimated Creatinine Clearance 49.30 ml/min (50-250); Glucose 105 mg/dL (70-99); Potassium 4.4 mmol/L (3.3-5.1)
--- NOTE | 2025-05-29 06:59 | EDS_ITS ---
HPI History of Present Illness Chief Complaint: Stroke Alert Informant: patient and family Narrative Narrative: [id number] male with past medical history of hypertension hyperlipidemia and previous TIA. He states that last night around 7 PM he was getting off the couch at his daughter's house and his left leg just felt off. He states he was still able to ambulate and went home and went to bed without issues. He states he woke up around 2 or 3 in the morning and when he tried to ambulate to the bathroom his left leg was not moving and it made him feel off balance. He states that there was no associated dizziness or vertigo with this and he states he did not notice any type of other weakness. He states that his symptoms reminded of the TIA he had previously. He states that he waited at home because the last time he had a TIA and improved and he states his symptoms this time are improving but they have not returned to baseline and secondary to this he presents for evaluation. [facility] Medical History LUE weakness CKD (chronic kidney disease) BPH (benign prostatic hyperplasia) Chronic anemia HLD (hyperlipidemia) HTN (hypertension) Valvular heart disease CAD (coronary artery disease) Home Medications ?Medication ?Instructions ?Recorded ?Last Taken ?Type aspirin 81 mg capsule 81 mg PO DAILY heart health 11/26/24 11/26/24 History cholecalciferol (vitamin D3) 25 1,000 unit PO QDAY sup plement 11/26/24 11/26/24 History mcg (1,000 unit) capsule (Vitamin D3) finasteride 5 mg tablet 5 mg PO DAILY prostate 11/2611/26/24 History metoprolol succinate 25 mg 12.5 mg PO DAILY blood pres sure 11/26/24 11/26/24 History tablet,extended release 24 hr rosuvastatin 40 mg tablet 40 mg PO DAILY cholesterol 0 11/26/24 11/26/24 History tamsulosin 0.4 mg capsule 0.4 mg PO DAILY prostate 01/1311/26/24 History ezetimibe 10 mg tablet (Zetia) 10 mg PO DAILY #30 tabs 11/28/24 Unknown Rx clopidogrel 75 mg tablet (Plavix) 75 mg PO DAILY 30 da ys #30 tabs 05/29/25 Unknown Rx Allergy/AdvReac Type Severity Reaction Status Date / Time No Known Allergies Allergy Verified 05/29/25 06:13 Family History Mother , while attempting CABG x 4. CAD (coronary artery disease) Hypertension Heart disease Myocardial infarction Other Prostate cancer Surgical History History of tonsillectomy and adenoidectomy Hx of aortic valve replacement Hx of bilateral hip replacements History of bilateral knee replacement Hx of coronary artery bypass surgery Social History household members: spouse Smoking Status: Never smoker alcohol intake: never substance use type: does not use ROS ROS ED Constitutional Constitutional ED: Denies chills or fever(s) Eyes Eyes: Denies blurry vision or change in vision ENT ENT ED: Denies sore throat Cardiovascular Cardiovascular: Denies chest pain, palpitations or racing heartbeat Respiratory/Chest Respiratory/Chest: Denies cough or dyspnea Gastrointestinal Gastrointestinal: Denies abdominal pain, diarrhea, nausea or vomiting Musculoskeletal Musculoskeletal: Reports back pain Integumentary Denies rash Neurologic Neurologic: Reports weakness and other Details: Weakness in the left leg only ; Denies headache(s) Hematologic/Lymphatic Hematologic/Lymphatic: Denies easy bleeding or easy bruising EXAM Physical Exam Const Vital Signs: 05/29/25 06:12 05/29/25 06:12 05/29/25 06:20 Temperature 98 F Temperature Source Temporal Pulse Rate 62 Respiratory Rate 18 Respiratory Effort Normal Non-Labored Respiratory Pattern Normal Blood Pressure 155/100 H Blood Pressure Mean 118 Pulse Ox 99 99 Oxygen Delivery Method Room Air Room Air 05/29/25 06:20 05/29/25 06:50 05/29/25 06:50 Temperature Temperature Source Pulse Rate 63 60 60 Respiratory Rate 20 H 16 16 Respiratory Effort Respiratory Pattern Blood Pressure 172/77 H 168/84 H 168/84 H Blood Pressure Mean 108 112 112 Pulse Ox 97 98 98 Oxygen Delivery Method Room Air Room Air Room Air 05/29/25 07:12 05/29/25 07:20 05/29/25 07:30 Temperature Temperature Source Pulse Rate 61 64 61 Respiratory Rate 18 16 14 Respiratory Effort Respiratory Pattern Blood Pressure 161/85 H 164/80 H 148/83 H Blood Pressure Mean 110 108 104 Pulse Ox 98 98 98 Oxygen Delivery Method Room Air Room Air Positive well nourished and well developed General Appearance ED: well developed; Negative for pallor HEENT HEENT Narrative: Normocephalic atraumatic No tongue or cheek biting to suggest seizure activity Eyes PERRL and EOMs intact bilaterally General Eye ED: Negative for scleral icterus Neck supple Neck Narrative: No nuchal rigidity or meningeal signs Resp normal respiratory effort and clear to auscultation bilaterally Cardio regular rhythm Rate: bradycardia and other Other Details: Slightly bradycardic rate with regular rhythm Radial and carotid pulses are equal and symmetric No carotid bruit noted Extremity normal to inspection Extremity Narrative: No bony deformity or joint effusion noted Compartments are soft and compressible going against compartment syndrome Posterior tibial pulses plus 2 out of 4 bilaterally Capillary refill is less than 3 seconds Neuro oriented x3 and CN's II-XII intact bilaterally Neuro Narrative: GCS of 15 Patient received an NIH stroke scale score of 1 for left leg drift. Otherwise there is no truncal ataxia no pronator drift no dysarthria aphasia or facial droop and no reported decrease in sensation. Sensorium / Orientation: alert Psych mental status grossly normal Skin no rashes or lesions noted and no wounds General Skin Exam: Negative for jaundice or pallor MDM MDM MDM Narrative Medical decision making narrative: Patient arrived to the ER awake and alert he was hypertensive but has a past medical history of this. He reported left leg weakness which began when he went to get up off his daughter's couch around 7 PM on May 28. Therefore this would be considered his last known well and he is outside any type of window for TNK. However as he does have a previous history of TIA and at this time still has left leg weakness with stroke scale score of 1 a stroke alert was activated. Noncontrast CT of the head revealed no acute bleed or mass. CTA of the head and neck revealed no signs of large vessel occlusion flow-limiting stenosis or aneurysm. It did document a 40% stenosis in the right internal carotid and a 30% stenosis in the left. Lab work revealed a mildly elevated BUN and creatinine consistent with his history of chronic kidney disease but chart review reveals these are near baseline. His EKG confirmed no signs of acute ischemia and there was no cardiac dysrhythmia noted while on the monitor. The patient's continue to have improvement of his symptoms and he is now able to ambulate with a steady gait but there is still mild persistent left leg weakness which is not his baseline. Therefore with his medical problems and persistent unilateral weakness I do feel that admission for continued stroke workup is his safest option. Secondary to this the case was discussed with the hospitalist who agrees to accept the patient for continued care History & Record Review Discussion w/independent historian: Patient and Family Lab Data Attestation: I reviewed the patient's lab results. Labs: Laboratory Results - last 24 hr 05/29/25 05/29/25 06:18 06:21 WBC 4.9 RBC 3.56 L Hgb 12.4 L Hct 35.8 L MCV 100.6 H MCH 34.8 H MCHC 34.6 RDW Std Deviation 49.7 H RDW Coeff of Michelle 13.2 Plt Count 140 L MPV 9.9 Immature Gran % (Auto) 0.200 Neut % (Auto) 61.5 Lymph % (Auto) 23.5 [facility] % (Auto) 9.9 Eos % (Auto) 4.5 Baso % (Auto) 0.4 Absolute Neuts (auto) 3.0 Absolute Lymphs (auto) 1.14 Nucleated RBC % 0 PT 14.1 INR 1.1 APTT 25.9 Sodium 141 Potassium 4.4 Chloride 106 Carbon Dioxide 25.2 Anion Gap 9 BUN 24 H Creatinine 1.55 H Estim Creat Clear Calc 49.30 L Est GFR (MDRD) Non-Af 46 L BUN/Creatinine Ratio 15.7 Glucose 105 H Calcium 9.5 POC Glucose 92 Radiography Diagnostic Testing: Clinical Impression(s) from Imaging Studies Brain CT 05/29/25 06:20 IMPRESSION: No CT evidence for acute brain abnormality. I discussed the findings with Dr. Austin Paige in the emergency department at 6:35 a.m. EST. Reading Location: [place] [id number] Head/Neck CTA 05/29/25 06:21 IMPRESSION: Atherosclerosis without high-grade stenosis. I discussed the findings with Dr. Kilo Paige at 7:00 am EST. Reading Location: [place] [id number] Management Discussion w/another healthcare provider: Hospitalist, Foreclosure Paralegal and Radiologist Discharge Plan Dx/Rx/DC Orders Clinical Impression: TIA (transient ischemic attack), Hypertension, Hyperlipidemia Disposition Disposition: Acute Care Hospital [facility]
--- NOTE | 2025-05-29 09:11 | ECHOD_ITS ---
Reason For Study Reason For Study: TIA/CVA Procedure This was a 2D Doppler, Color Flow transthoracic echocardiogram. The patient is in sinus rhythm. Exam performed portable in patient room. Left Ventricle Normal size left ventricle. Normal left ventricular wall thickness. Left ventricular EF by Case's biplane: 55%. Normal diastolic function. No regional wall motion abnormalities noted. Right Ventricle Normal right ventricle. Normal systolic function. Unable to estimate RV systolic pressure due to insufficient tricuspid regurgitant envelope. Atria The left and right atria are normal. Estimated RA pressure: 3 mmHg. Mitral Valve Normal mitral valve. Mitral annular calcification present. Trace mitral regurgitation. No mitral stenosis. Tricuspid Valve Normal tricuspid valve. Trace tricuspid regurgitation. No tricuspid stenosis. Aortic Valve Bioprosthetic aortic valve present. Mean gradient: 10 mmHg. Gradient normal for this bioprosthetic valve. No significant aortic regurgitation. Pulmonic Valve Normal pulmonic valve. No pulmonic stenosis. Mild pulmonic regurgitation. Great Vessels Normal sized aortic root. Normal ascending aorta. Pericardium/Pleural No pericardial effusion. MMode/2D Measurements & Calculations LVIDd: 6.1 cm IVSd: 0.78 cm LVOT diam: 2.0 cm LVIDs: 4.2 cm LVPWd: 1.0 cm LVOT area: 3.2 cm2 RVDd: 2.7 cm FS: 30.9 % asc Aorta Diam: 3.5 cm LAV(MOD-bp): 42.3 ml LVAd ap4: 33.9 cm2 LAV(MOD-bp) Indexed: 18.7 ml/m2 LVLd ap4: 9.2 cm LAV(MOD-sp2): 38.1 ml EDV(MOD-sp4): 102.7 ml LAV(MOD-sp4): 46.8 ml EDV(sp4-el): 105.6 ml LVAs ap4: 21.2 cm2 LVLs ap4: 8.0 cm ESV(MOD-sp4): 51.0 ml ESV(sp4-el): 47.5 ml EF(MOD-sp4): 50.3 % EF(sp4-el): 55.0 % LVAd ap2: 26.9 cm2 SV(MOD-sp4): 51.6 ml SV(MOD-sp2): 41.9 ml LVLd ap2: 9.1 cm SI(MOD-sp4): 22.9 ml/m2 SI(MOD-sp2): 18.6 ml/m2 EDV(MOD-sp2): 65.3 ml EDV(sp2-el): 67.5 ml LVAs ap2: 14.4 cm2 LVLs ap2: 7.6 cm ESV(MOD-sp2): 23.4 ml ESV(sp2-el): 23.3 ml EF(MOD-sp2): 64.2 % SV(sp4-el): 58.1 ml LA dimension(2D): 4.4 cm LA A4 area: 17.7 cm2 RA A4 area: 12.2 cm2 TAPSE: 1.1 cm Time Measurements MV dec time: 0.19 sec Doppler Measurements & Calculations MV E max gabriel: 92.9 cm/sec Lat Peak E' Gabriel: 9.7 cm/sec Med Peak E' Gabriel: 8.3 cm/sec MV A max gabriel: 57.5 cm/sec E/E' lat: 9.5 E/E' med: 11.2 MV E/A: 1.6 Ao V2 max: 212.3 cm/sec LV V1 max: 118.0 cm/sec MV dec slope: 484.8 cm/sec2 Ao max P.0 mmHg LV V1 max P.6 mmHg Ao V2 mean: 145.1 cm/sec LV V1 mean P.6 mmHg Ao mean P.6 mmHg LV V1 mean: 91.9 cm/sec Ao V2 VTI: 54.6 cm LV V1 VTI: 30.7 cm AV (velocity ratio): 0.56 EL(I,D): 1.8 cm2 EL(V,D): 1.8 cm2 SV(LVOT): 97.8 ml PA V2 max: 71.7 cm/sec ECHO/Echo Complete Interpretation Summary Bradycardia present on examination Normal LV systolic function with EF by Case's biplane: 55%. Normal left ventricular diastolic function Normal RV systolic function Normally functioning bioprosthetic aortic valve Compared to echocardiogram in 11/28/2024, there are no significant changes. Ordering Physician: Gurpreet Rivas Referring Physician: Alexei Duran Performed By: Camilla Paredes RDCS
--- NOTE | 2025-05-29 09:11 | MRI_ITS ---
PROCEDURE: BRAIN WITHOUT CONTRAST 05/29/2025 REASON FOR EXAM: CVA VS TIA TECHNIQUE: Procedure Code: MRIBR Modality: MR Procedure: BRAIN WITHOUT CONTRAST Multiplanar and multisequence images were obtained. COMPARISON: CT head and CT angio head and neck 05/29/2025 FINDINGS: There is generalized intracranial volume loss with prominent ventricles and sulci consistent with patient's advanced age. No midline shift or mass effect is identified. No extracerebral fluid collections are present. The gotti-white matter interface and signal intensity appear unremarkable bilaterally. Scattered T2/FLAIR hyperintensities compatible with chronic microvascular white matter ischemia. The DWI and ADC map images show no signal abnormality with restricted diffusion to suggest acute infarct. There is no evidence of intracranial hemorrhage. The cerebellum appears unremarkable. The brainstem shows normal signal intensity and is intact. The cervicocranial junction appears unremarkable. The midline structures including the corpus callosum, sella and suprasellar region appear unremarkable. The vascular structures show normal signal void. The skull is unremarkable. The orbits are grossly unremarkable. The paranasal sinuses show normal translucency. MRI/Brain without Contrast IMPRESSION: 1. No acute infarct. No mass effect or midline shift. 2. Chronic involutional and ischemic gliotic white matter changes. Reading Location: [facility]
--- NOTE | 2025-05-29 12:12 | CASEMGMT ---
Social Work Per imaging pt negative for stroke, therefore PHQ9 not completed. JIMMIE Walters
--- NOTE | 2025-05-29 13:37 | PCM.HP.STD ---
HPI - General General Date of Admission: 05/29/25 HPI Narrative IVAN SALAS, is a 79 M who presents to the hospital with signs and symptoms consistent with stroke. In the middle of the night he got up and noticed that he had significant left lower extremity weakness and when it did not go away this morning he decided to come to the emergency room. He says that it is much better though he is still weak but he was able to ambulate in the hallways with a walker. Denies any numbness or tingling in his lower extremities and he has no weakness in his upper extremities, speech is okay and no facial droop. [facility]LY [facility] Medical History LUE weakness CKD (chronic kidney disease) BPH (benign prostatic hyperplasia) Chronic anemia HLD (hyperlipidemia) HTN (hypertension) Valvular heart disease CAD (coronary artery disease) Home Medications ?Medication ?Instructions ?Recorded ?Last Taken ?Type aspirin 81 mg capsule 81 mg PO DAILY heart health 11/26/24 11/26/24 History cholecalciferol (vitamin D3) 25 1,000 unit PO QDAY supplement 11/26/24 11/26/24 History mcg (1,000 unit) capsule (Vitamin D3) finasteride 5 mg tablet 5 mg PO DAILY prostate 11/26/24 11/26/24 History metoprolol succinate 25 mg 12.5 mg PO DAILY blood pressure 11/26/24 11/26/24 History tablet,extended release 24 hr rosuvastatin 40 mg tablet 40 mg PO DAILY cholesterol 11/26/24 11/26/24 History tamsulosin 0.4 mg capsule 0.4 mg PO DAILY prostate 11/26/24 11/26/24 History ezetimibe 10 mg tablet (Zetia) 10 mg PO DAILY #30 tabs 11/28/24 Unknown Rx clopidogrel 75 mg tablet (Plavix) 75 mg PO DAILY 30 days #30 tabs 05/29/25 Unknown Rx Allergy/AdvReac Type Severity Reaction Status Date / Time No Known Allergies Allergy Verified 05/29/25 06:13 Family History Mother , while attempting CABG x 4. CAD (coronary artery disease) Hypertension Heart disease Myocardial infarction Other Prostate cancer Surgical History History of tonsillectomy and adenoidectomy Hx of aortic valve replacement Hx of bilateral hip replacements History of bilateral knee replacement Hx of coronary artery bypass surgery Social History (Updated 05/29/25 @ 09:27 by Erin Luo) household members: spouse housing: house Smoking Status: Never smoker alcohol intake: never substance use type: does not use ROS Constitutional Constitutional: Denies chills, fatigue, fever(s) or malaise Eyes Eyes: Denies blurry vision ENT HEENT: Denies headache(s) or nasal discharge Cardiovascular Cardiovascular: Denies chest pain, dyspnea on exertion or syncope Respiratory/Chest Respiratory/Chest: Denies cough, shortness of breath at rest or shortness of breath with exertion Gastrointestinal Gastrointestinal: Denies constipation, diarrhea, nausea or vomiting Genitourinary Genitourinary: Denies dysuria Neurologic Neurologic: Reports focal weakness; Denies numbness or tremor(s) Psychiatric Psychiatric: Denies anxiety or depression Vital Signs Vital Signs Vital Signs: 05/29/25 06:12 05/29/25 06:12 05/29/25 06:20 Temperature 98 F Temperature Source Temporal Pulse Rate 62 Respiratory Rate 18 Respiratory Effort Normal Non-Labored Respiratory Depth Respiratory Pattern Normal Blood Pressure 155/100 H Blood Pressure Mean 118 Blood Pressure Source Blood Pressure Position Blood Pressure Location Pulse Ox 99 99 Oxygen Delivery Method Room Air Room Air 05/29/25 06:20 05/29/25 06:50 05/29/25 06:50 Temperature Temperature Source Pulse Rate 63 60 60 Respiratory Rate 20 H 16 16 Respiratory Effort Respiratory Depth Respiratory Pattern Blood Pressure 172/77 H 168/84 H 168/84 H Blood Pressure Mean 108 112 112 Blood Pressure Source Blood Pressure Position Blood Pressure Location Pulse Ox 97 98 98 Oxygen Delivery Method Room Air Room Air Room Air 05/29/25 07:12 05/29/25 07:20 05/29/25 07:30 Temperature Temperature Source Pulse Rate 61 64 61 Respiratory Rate 18 16 14 Respiratory Effort Respiratory Depth Respiratory Pattern Blood Pressure 161/85 H 164/80 H 148/83 H Blood Pressure Mean 110 108 104 Blood Pressure Source Blood Pressure Position Blood Pressure Location Pulse Ox 98 98 98 Oxygen Delivery Method Room Air Room Air 05/29/25 08:00 05/29/25 08:00 05/29/25 08:30 Temperature Temperature Source Pulse Rate 61 61 55 L Respiratory Rate 18 15 16 Respiratory Effort Respiratory Depth Respiratory Pattern Blood Pressure 158/78 H 158/78 H 175/81 H Blood Pressure Mean 104 104 112 Blood Pressure Source Blood Pressure Position Blood Pressure Location Pulse Ox 98 98 98 Oxygen Delivery Method 05/29/25 08:54 05/29/25 09:00 05/29/25 09:45 Temperature 98 F Temperature Source Pulse Rate 57 L 61 Respiratory Rate 18 18 Respiratory Effort Normal Non-Labored Respiratory Depth Normal Respiratory Pattern Normal Blood Pressure 161/86 H 158/74 H Blood Pressure Mean 111 102 Blood Pressure Source Blood Pressure Position Blood Pressure Location Pulse Ox 99 98 Oxygen Delivery Method Room Air 05/29/25 09:47 05/29/25 12:54 05/29/25 13:11 Temperature 97.9 F 98 F Temperature Source Oral Oral Pulse Rate 79 60 Respiratory Rate 14 14 Respiratory Effort Respiratory Depth Respiratory Pattern Blood Pressure 166/89 H 142/92 H Blood Pressure Mean 114 108 Blood Pressure Source Monitor Monitor Blood Pressure Position Semi-Fowlers Sitting Blood Pressure Location Left Arm Right Arm Pulse Ox 97 97 Oxygen Delivery Method Room Air Room Air Room Air Weight Weight: 224 lb 10.417 oz Body Mass Index (BMI) 29.6 Physical Exam Narrative General: Alert, Oriented x3, Cooperative, No apparent distress HEENT: Atraumatic, PERRLA, EOMI, Normocephalic Oral: Moist Mucosa Neck: Supple, No JVD Lungs: Diminished, Normal air movement, No rhonchi, No wheeze, No rales Cardiovascular: Regular rate, Regular Rhythm, Normal S1, Normal S2, No murmurs Abdomen: Soft, Non Tender, Non-Distended, No Hepato-splenomegaly Extremities: No edema, Capillary Refill Less than 3 Seconds Skin: No rashes, No breakdown Musculoskeletal: No Tenderness to Palpation of Joints or Extremities Neurological: Focal weakness in his left lower extremity, NIH 1 Psych/Mental Status: Normal Affect, Appropriate Results Lab / Micro Data 05/29/25 06:18 05/29/25 06:18 Labs: Laboratory Results - last 24 hr 05/29/25 06:18: WBC 4.9, RBC 3.56 L, Hgb 12.4 L, Hct 35.8 L, MCV 100.6 H, MCH 34.8 H, MCHC 34.6, RDW Std Deviation 49.7 H, RDW Coeff of Michelle 13.2, Plt Count 140 L, MPV 9.9, Immature Gran % (Auto) 0.200, Neut % (Auto) 61.5, Lymph % (Auto) 23.5, Grant % (Auto) 9.9, Eos % (Auto) 4.5, Baso % (Auto) 0.4, Absolute Neuts (auto) 3.0, Absolute Lymphs (auto) 1.14, Nucleated RBC % 0, PT 14.1, INR 1.1, APTT 25.9, Sodium 141, Potassium 4.4, Chloride 106, Carbon Dioxide 25.2, Anion Gap 9, BUN 24 H, Creatinine 1.55 H, Estim Creat Clear Calc 49.30 L, Est GFR (MDRD) Non-Af 46 L, BUN/Creatinine Ratio 15.7, Glucose 105 H, Calcium 9.5 05/29/25 06:21: POC Glucose 92 Imaging Radiology Impression Brain CT 05/29/25 06:20 IMPRESSION: No CT evidence for acute brain abnormality. I discussed the findings with Dr. Ivan Paige in the emergency department at 6:35 a.m. EST. Reading Location: [place] [address] Head/Neck CTA 05/29/25 06:21 IMPRESSION: Atherosclerosis without high-grade stenosis. I discussed the findings with Dr. Kilo Paige at 7:00 am EST. Reading Location: [place] [address] Brain MRI 05/29/25 09:11 IMPRESSION: 1. No acute infarct. No mass effect or midline shift. 2. Chronic involutional and ischemic gliotic white matter changes. Reading [facility] Assessment & Plan Assessment/Plan (1) CVA (cerebral vascular accident): PLAN: Plan 1. Acute CVA ? Given continued symptoms we will treat as a stroke ? Will load with Plavix and continue with his aspirin ? Continue with his statin ? He did have a TIA back in January with left arm weakness ? MRI and echo are pending ? Will continue stroke protocol 2. Essential HTN/HLD/CAD status post CABG ? Will hold his home blood pressure medications and allow for permissive hypertension ? Continue with his Zetia and Crestor 3. BPH with obstruction ? Stable ? Continue with his home medications DVT: SCDs 75 minutes was spent on direct patient care, including documentation as well as chart review and collaboration with colleagues Charges/Coding Visit Charges Inpatient E&M: 62932 Init Hosp L3
--- NOTE | 2025-05-29 13:45 | CON.PCM.NE_ITS ---
Assessment and Plan: Stroke Assessment/Plan IVAN SALAS is a 79 M with a history of HTN, HLD, CAD s/p CABG on ASA, AV replacement (bovine), CKD, BPH, and recent TIA (11/26/24) presenting with transient LUE weakness placed on DAPT for 21 days now back on ASA monotherapy presents with improving LLE weakness. LKW 9:30 pm 05/28/25, woke up at 0200 with LLE weakness. Of note, he had a 2 week holter with PAC/PVC but not AFIB back in November as well to complete workup. Neurological examination shows NIHSS 2 - LUE and LLE drift. Does report improvement in LLE weakness from initial presentation. MRI Brain with small cortical infarcts in R cerebral hemisphere (read pending review, discussed with quality regarding update in read as there is diffusion restriction appreciated consistent with small cortical acute stroke). ASSESSMENT/PLAN: Ischemic Stroke, cryptogenic 1) Recommend completing workup with TTE, read pending. 2) Recommend restart dAPT. Load with Plavix 300 mg today and continue daily anti-platelet medication dAPT (Asa 81 mg/plavix 75 mg x 21 days per [facility] protocol) and then discontinue Plavix and continue Asa only thereafter 3) Continue vascular risk factor modification. Continue lipitor 80. Follow up A1C and LDL. Patient reports improved blood pressure (< 140 consistently at home). Non smoker. 4) Recommend cardiology for 30-day event monitor vs loop recorder given second cryptogenic ischemic event this year to rule out AFIB. 5) Follow-up in outpatient neurology clinic and cardiology clinic 6) PT/OT, Stroke education Carissa Graham MD HPI Consult Data Date of Consult: 05/29/25 HPI Narrative HPI Narrative: IVAN SALAS is a 79 M with a history of HTN, HLD, CAD s/p CABG on ASA, AV replacement (bovine), CKD, BPH, and recent TIA (11/26/24) presenting with transient LUE weakness placed on DAPT for 21 days now back on ASA monotherapy presents with improving LLE weakness. LKW 9:30 pm 05/28/25, woke up at 0200 with LLE weakness. Of note, he had a 2 week holter with PAC/PVC but not AFIB back in November as well to complete workup. He reports going to bed at 9:30 pm and waking up around 0200 to go to the bathroom. He states he noted his LLE was weaker. He went back to bed and when he woke up at 0400 he noted it still was weaker and dragging so he called his daughter to bring him to the ED. He was out of the window for lytics. CTH/CTA non acute. Interval improvement in weakness. Plan for PT/OT. MRI with concern for acute ischemia. Denies smoking, reports better controlled blood pressure. Has history of CAD, HTN, HLD. No smoking. [facility] Medical History LUE weakness CKD (chronic kidney disease) BPH (benign prostatic hyperplasia) Chronic anemia HLD (hyperlipidemia) HTN (hypertension) Valvular heart disease CAD (coronary artery disease) Home Medications ?Medication ?Instructions ?Recorded ?Last Taken ?Type aspirin 81 mg capsule 81 mg PO DAILY heart health 11/26/24 11/26/24 History cholecalciferol (vitamin D3) 25 1,000 unit PO QDAY sup plement 11/26/24 11/26/24 History mcg (1,000 unit) capsule (Vitamin D3) finasteride 5 mg tablet 5 mg PO DAILY prostate 11/2611/26/24 History metoprolol succinate 25 mg 12.5 mg PO DAILY blood pres sure 11/26/24 11/26/24 History tablet,extended release 24 hr rosuvastatin 40 mg tablet 40 mg PO DAILY cholesterol 0 11/26/24 11/26/24 History tamsulosin 0.4 mg capsule 0.4 mg PO DAILY prostate 01/1311/26/24 History ezetimibe 10 mg tablet (Zetia) 10 mg PO DAILY #30 tabs 11/28/24 Unknown Rx clopidogrel 75 mg tablet (Plavix) 75 mg PO DAILY 30 da ys #30 tabs 05/29/25 Unknown Rx Allergy/AdvReac Type Severity Reaction Status Date / Time No Known Allergies Allergy Verified 05/29/25 06:13 Family History Mother , while attempting CABG x 4. CAD (coronary artery disease) Hypertension Heart disease Myocardial infarction Other Prostate cancer Surgical History History of tonsillectomy and adenoidectomy Hx of aortic valve replacement Hx of bilateral hip replacements History of bilateral knee replacement Hx of coronary artery bypass surgery Social History (Updated 05/29/25 @ 09:27 by Erin Luo) household members: spouse housing: house Smoking Status: Never smoker alcohol intake: never substance use type: does not use Vital Signs Vital Signs Vital Signs: 05/29/25 06:12 05/29/25 06:12 05/29/25 06:20 Temperature 98 F Temperature Source Temporal Pulse Rate 62 Respiratory Rate 18 Respiratory Effort Normal Non-Labored Respiratory Depth Respiratory Pattern Normal Blood Pressure 155/100 H Blood Pressure Mean 118 Blood Pressure Source Blood Pressure Position Blood Pressure Location Pulse Ox 99 99 Oxygen Delivery Method Room Air Room Air 05/29/25 06:20 05/29/25 06:50 05/29/25 06:50 Temperature Temperature Source Pulse Rate 63 60 60 Respiratory Rate 20 H 16 16 Respiratory Effort Respiratory Depth Respiratory Pattern Blood Pressure 172/77 H 168/84 H 168/84 H Blood Pressure Mean 108 112 112 Blood Pressure Source Blood Pressure Position Blood Pressure Location Pulse Ox 97 98 98 Oxygen Delivery Method Room Air Room Air Room Air 05/29/25 07:12 05/29/25 07:20 05/29/25 07:30 Temperature Temperature Source Pulse Rate 61 64 61 Respiratory Rate 18 16 14 Respiratory Effort Respiratory Depth Respiratory Pattern Blood Pressure 161/85 H 164/80 H 148/83 H Blood Pressure Mean 110 108 104 Blood Pressure Source Blood Pressure Position Blood Pressure Location Pulse Ox 98 98 98 Oxygen Delivery Method Room Air Room Air 05/29/25 08:00 05/29/25 08:00 05/29/25 08:30 Temperature Temperature Source Pulse Rate 61 61 55 L Respiratory Rate 18 15 16 Respiratory Effort Respiratory Depth Respiratory Pattern Blood Pressure 158/78 H 158/78 H 175/81 H Blood Pressure Mean 104 104 112 Blood Pressure Source Blood Pressure Position Blood Pressure Location Pulse Ox 98 98 98 Oxygen Delivery Method 05/29/25 08:54 05/29/25 09:00 05/29/25 09:45 Temperature 98 F Temperature Source Pulse Rate 57 L 61 Respiratory Rate 18 18 Respiratory Effort Normal Non-Labored Respiratory Depth Normal Respiratory Pattern Normal Blood Pressure 161/86 H 158/74 H Blood Pressure Mean 111 102 Blood Pressure Source Blood Pressure Position Blood Pressure Location Pulse Ox 99 98 Oxygen Delivery Method Room Air 05/29/25 09:47 05/29/25 12:54 05/29/25 13:11 Temperature 97.9 F 98 F Temperature Source Oral Oral Pulse Rate 79 60 Respiratory Rate 14 14 Respiratory Effort Respiratory Depth Respiratory Pattern Blood Pressure 166/89 H 142/92 H Blood Pressure Mean 114 108 Blood Pressure Source Monitor Monitor Blood Pressure Position Semi-Fowlers Sitting Blood Pressure Location Left Arm Right Arm Pulse Ox 97 97 Oxygen Delivery Method Room Air Room Air Room Air Weight Weight: 101.9 kg Body Mass Index (BMI) 29.6 EEG Results Procedure Details EEG Procedure Details: IVAN SALAS is a 79 year old M with a past medical history of , who presents for evaluation of Electroencephalogram on DATE at TIME Lab / Micro Data 05/29/25 06:18 05/29/25 06:18 Labs: Laboratory Results - last 24 hr 05/29/25 06:18: WBC 4.9, RBC 3.56 L, Hgb 12.4 L, Hct 35.8 L, MCV 100.6 H, MCH 34.8 H, MCHC 34.6, RDW Std Deviation 49.7 H, RDW Coeff of Michelle 13.2, Plt Count 140 L, MPV 9.9, Immature Gran % (Auto) 0.200, Neut % (Auto) 61.5, Lymph % (Auto) 23.5, Cowley % (Auto) 9.9, Eos % (Auto) 4.5, Baso % (Auto) 0.4, Absolute Neuts (auto) 3.0, Absolute Lymphs (auto) 1.14, Nucleated RBC % 0, PT 14.1, INR 1.1, APTT 25.9, Sodium 141, Potassium 4.4, Chloride 106, Carbon Dioxide 25.2, Anion Gap 9, BUN 24 H, Creatinine 1.55 H, Estim Creat Clear Calc 49.30 L, Est GFR (MDRD) Non-Af 46 L, BUN/Creatinine Ratio 15.7, Glucose 105 H, Calcium 9.5 05/29/25 06:21: POC Glucose 92 Imaging Radiology Impression Brain CT 05/29/25 06:20 IMPRESSION: No CT evidence for acute brain abnormality. I discussed the findings with Dr. Ivan Paige in the emergency department at 6:35 a.m. EST. Reading [facility] [id number] Head/Neck CTA 05/29/25 06:21 IMPRESSION: Atherosclerosis without high-grade stenosis. I discussed the findings with Dr. Kilo Paige at 7:00 am EST. Reading [facility] Brain MRI 05/29/25 09:11 IMPRESSION: 1. No acute infarct. No mass effect or midline shift. 2. Chronic involutional and ischemic gliotic white matter changes. Reading [facility] Active Medications Active Medications Active Medications: Current Medications Generic Name Dose Route Start Last Admin Trade Name Freq PRN Reason Stop Dose Admin Aspirin 81 mg 05/30/25 08:00 Aspirin 81 Mg Tab.Chew PO BREAKFAST EMILY Atorvastatin Calcium 80 mg 05/29/25 22:00 Atorvastatin Calcium 80 Mg Tablet PO QHS EMILY Clopidogrel Bisulfate 75 mg 05/29/25 10:00 05/29/25 12:02 Clopidogrel Bisulfate 75 Mg Tablet PO 75 mg DAILY EMILY Administration Ezetimibe 10 mg 05/29/25 10:00 05/29/25 12:02 Ezetimibe 10 Mg Tablet PO 10 mg DAILY EMILY Administration Hydralazine HCl 5 mg 05/29/25 09:11 Hydralazine 20 Mg/Ml Vial IV 05/30/25 09:11 Q30M PRN maintain BP parameters with HR <60 Sodium Chloride 250 mls @ 15 mls/hr 05/29/25 09:12 IV .[id number] PRN Saline Flush Sodium Chloride 250 mls @ 15 mls/hr 05/29/25 09:12 IV .[id number] PRN Additional IVPB Infusion Labetalol HCl 10 - 20 mg 05/29/25 09:11 Labetalol 20 Mg/4 Ml Vial IV 05/30/25 09:11 Q10M PRN PRN maintain BP parameters with HR >/=60 Sodium Chloride 10 - 40 ml 05/29/25 09:12 0.9% Saline Lock 10 Ml Syringe IV UD PRN SALINE FLUSH Tamsulosin HCl 0.4 mg 05/29/25 10:00 05/29/25 12:02 Tamsulosin Hcl 0.4 Mg Capsule PO 0.4 mg DAILY EMILY Administration NIHSS NIHSS Nursing Documentation NIHSS Nursing Documentation: NIHSS: Ischemic Stroke/TIA Start: 05/29/25 09:11 Text: For PCU Patients: NIH and Neuro Check every 4 Status: Active hours, PRN and with change in RN caregiver. Freq: [id number] Protocol: Activity Type Activity Date Activity User E-sign Co-sign Detail Recorded Client Recorded Date Recorded By Document 05/29/25 13:21 DS [id number] 05/29/25 13:21 DS 05/29/25 13:21 NIH Stroke Scale [NIHSS] A score of 0 is normal or asymptomatic . Total possible score is 42. Inpatient: RN or Physician to activate a stroke alert for onset of new stroke symptoms or with NIHSS increase >/= 3 points. Following change in neurological status, NIHSS will be performed per physician order or more frequently PRN. -1a. Level of Consciousness 0 - Alert; keenly responsive -1b. LOC Questions 0 - Answers BOTH questions correctly -1c. LOC Commands 0 - Performs BOTH tasks correctly -2. Best Gaze 0 - Normal -3. Visual 0 - No visual loss -4. Facial Palsy 0 - Normal symmetrical movements -5a. Left Arm 0 - No drift; arm holds 90 ( or 45) degrees for full 10 seconds -5b. Right Arm 0 - No drift; arm holds 90 ( or 45) degrees for full 10 seconds -6a. Left Leg 1 - Drift; leg falls by the end of 5- seconds, but does not hit bed -6b. Right Leg 0 - No drift; leg holds 30- degree position for full 5 seconds -7. Limb Ataxia 0 - Absent -8. Sensory 0 - Normal; no sensory loss -9. Best Language 0 - No aphasia; normal -10. Dysarthria 0 - Normal -11. Extinction and Inattention 0 - No abnormality -Total 1 Query Text:A score of 0 is normal or asymptomatic. Total possible score is 42 . ED: Notify Physician for NIHSS increase by > / = 3 points. Inpatient: RN or Physician to activate a stroke alert for NIHSS increase of > / = 3 points. Coma Scale [Assess] -Eye Opening Spontaneous -Motor Obeys Commands -Verbal Oriented [Total] -Coma Scale Total 15 NIHSS 1a. Level of Consciousness: 0 - Alert; keenly responsive 1b. LOC Questions: 0 - Answers BOTH questions correctly 1c. LOC Commands: 0 - Performs BOTH tasks correctly 2. Best Gaze: 0 - Normal 3. Visual: 0 - No visual loss 4. Facial Palsy: 0 - Normal symmetrical movements 5a. Left Arm: 1 - Drift; arm drifts downward but doesn?t hit the bed 5b. Right Arm: 0 - No drift; arm holds 90 (or 45) degrees for full 10 seconds 6a. Left Le - Drift; leg falls by the end of 5-seconds, but does not hit bed 6b. Right Le - No drift; leg holds 30-degree position for full 5 seconds 7. Limb Ataxia: 0 - Absent 8. Sensory: 0 - Normal; no sensory loss 9. Best Language: 0 - No aphasia; normal 10. Dysarthria: 0 - Normal 11. Extinction and Inattention: 0 - No abnormality Total: 2
--- NOTE | 2025-05-29 14:22 | CASEMGMT ---
Social Work SW completed a PHQ9 with the patient. Patient scored a 0. L. JIMMIE La
[2025-05-30 03:00] VITALS: BP 113/54; PULSE 56; RESP 18; TEMP 36.2; O2SAT 93
[2025-05-30 04:00] VITALS: O2SAT 94
[2025-05-30 05:00] VITALS: BMI 29.6
[2025-05-30 06:00] VITALS: BP 122/60; PULSE 58; RESP 18; TEMP 36.2; O2SAT 94
[2025-05-30 06:16] VITALS: BMI 29.6
[2025-05-30 07:00] LABS: Hematocrit 33.7 % (40-54); Hemoglobin 11.5 g/dL (13.0-16.5); Immature Granulocytes Count 0.010 X10^3/uL (0.0-0.0); Mean Corp Hgb Conc 34.1 g/dL (32-36); Mean Corpuscular Volume 100.9 fL (80-94); Mean Platelet Vol. 9.1 fl (6.2-12.0); NRBC Flagged by Analyzer 0 % (0-5); POSITIVE DIFFERENTIAL YES; Platelet Count 108 K/mm3 (150-450); RBC Distribution Width CV 13.5 % (11.6-14.6); RBC Distribution Width SD 50.1 fl (35.1-43.9); Red Blood Count 3.34 M/mm3 (4.6-6.2); White Blood Count 3.8 K/mm3 (4.4-11.0)
[2025-05-30 07:29] LABS: Anion Gap 8 (5-15); BUN 21 mg/dL (4-19); BUN/Creat Ratio 16.4 RATIO (10-20); Calcium,Total 9.1 mg/dL (7.6-11.0); Carbon Dioxide 23.8 mmol/L (21.0-32.0); Chloride 107 mmol/L (98-108); Estimated Creatinine Clearance 59.21 ml/min (50-250); Glucose 95 mg/dL (70-99); Potassium 4.1 mmol/L (3.3-5.1)
[2025-05-30 08:16] LABS: Cholesterol 129 mg/dL (<=200); Low Density Lipoprotein Calc. 69 mg/dL; Triglycerides 95 mg/dL; Very Low Density Lipoprotein 19 mg/dL (5-40); cholesterol:hdl ratio screen 3.09
[2025-05-30 09:28] VITALS: BP 136/64; PULSE 65; RESP 14; TEMP 36.7; O2SAT 97
--- NOTE | 2025-05-30 09:46 | CASEMGMT ---
Social Work Face to Face with pt for initial transition planning/care coordination assessment. SW introduced self. Patient voices understanding and consents to assessment. Patient is A&O x4 and answers all questions appropriately at this time. Admitting Dx: CVA vs TIA Primary Care Doctor: Dr. Ford Speciality doctors: Cardio- Dr. Amato Insurance: Medicare and [facility] Pharmacy: Patient utilizes [facility] [place] Advanced directives: yes LNOK:. and 3 children Living Situation: Patient lives at home with his . His 3 children live in the area. Patient has a ramp into his home. ADL's/Prior level of functioning: independent Transportation: Patient still drives. DME: walk in shower, RTS, grab bars, rollator, FWW halfway/home health history: none Mental Health: none Substance abuse history: none Assessment: Patient lives at home with his . His 3 children live in the area. Patient has a ramp into his home. Patient is independent with his ADL's. Patient still drives. Patient does not want HH at DC. PLAN: DC home with no needs. Patient does not want HH at DC. JIMMIE Walters
--- NOTE | 2025-05-30 10:22 | DCINST_ITS ---
Discharge Instructions DC O2, CPAP, BIPAP needs Home O2 Discharge instructions: No Dressing / Incision Discharge Activity: Return to Normal Activity Dressing / Incision Call your doctor if you observe: Fever of 101 or Higher, Shortness of breath, Dizziness, Fainting spells, Swelling in the ankles, Chest pain and Increased palpitations (irregular heartbeat) Follow Up Care Test Results: Test results from this visit will be discussed in further detail at your follow- up appointment, if applicable. Discharge Plan Admission Admit Date/Time: 05/29/25 08:34 Attending Provider: Gurpreet Rivas Primary Care Provider: Alexei Duran NP Consulting Providers: Dick Montana; Zia Goldstein; Idalia Mitchell; Veronique Nice; Tori Rivera; Agusto Clay; Carissa Graham; Hernando Clifton; Austin Rivera; Samuel Mills; Linnea Stephenson; Anabel Schmitt; Vinay Rubin; Myesha Erickson; Layo Pittman; Ottoniel Vital; Jarad Meyer; July Dumont; Yariel Lin; Yoli Tinoco; Trevor Cummins Discharge Orders/Prescriptions Prescriptions: New clopidogrel [Plavix] 75 mg tablet 75 mg PO DAILY 30 Days Qty: 30 0RF Continued metoprolol succinate 25 mg tablet extended release 24 hr 12.5 mg PO DAILY rosuvastatin 40 mg tablet 40 mg PO DAILY aspirin 81 mg capsule 81 mg PO DAILY tamsulosin 0.4 mg capsule 0.4 mg PO DAILY finasteride 5 mg tablet 5 mg PO DAILY cholecalciferol (vitamin D3) [Vitamin D3] 25 mcg (1,000 unit) capsule 1,000 unit PO QDAY ezetimibe [Zetia] 10 mg tablet 10 mg PO DAILY Qty: 30 0RF Discontinued clopidogrel 75 mg tablet 75 mg PO DAILY Other Ambulatory Orders: 30 Day Event Recorder Preventi (Routine) Timeframe: 1 Day Facility: [facility] - Location: Cardiovascular Services Ordered By: Dr. Gurpreet Rivas Referrals / Follow Up: Jones Hummel MD [Non-Staff -Ordering Privileges, Neurology] - Within 1 Month Roger,Alexei Dieudonne COMMUNICATION CONSULTANT, COMMUNICATION CONSULTANT-C [Primary Care Provider, Family Practice] - Within 1 Week Disposition Disposition (needs filled in before D/C Order can be placed): Home, Self Care
--- NOTE | 2025-05-30 10:26 | DS.PCM_ITS ---
Providers Date of Admission: 05/29/25 Primary Care Physician: Alexei Duran, TOSIN-C Consultations 05/29/25 09:11 Consult: Tele-Neurology Routine Consulting Provider: [facility] Reason for Consult: Acute Ischemic Stroke/TIA EMERGENT Consult: No MD Notified: Yes Date Notified: 05/29/25 Time Notified: 09:28 Method of Notification: Answering Service Nursing Unit Staff Notify [facility] of Tele-Neurology Consult: Yes Reason For Visit: CVA VS TIA Diagnosis Discharge Diagnosis (1) CVA (cerebral vascular accident): Status: Acute Code(s): I63.9 - Cerebral infarction, unspecified Medications at Discharge Home Medications aspirin 81 mg capsule 81 mg PO DAILY heart health 11/26/24 cholecalciferol (vitamin D3) 25 mcg (1,000 unit) capsule (Vitamin D3) 1,000 unit PO QDAY supplement 11/26/24 finasteride 5 mg tablet 5 mg PO DAILY prostate 11/26/24 metoprolol succinate 25 mg tablet,extended release 24 hr 12.5 mg PO DAILY blood pressure 11/26/24 rosuvastatin 40 mg tablet 40 mg PO DAILY cholesterol 11/26/24 tamsulosin 0.4 mg capsule 0.4 mg PO DAILY prostate 11/26/24 ezetimibe 10 mg tablet (Zetia) 10 mg PO DAILY #30 tabs 11/28/24 clopidogrel 75 mg tablet (Plavix) 75 mg PO DAILY 30 days #30 tabs 05/29/25 Hospital Course Operations None Procedures 2-D Echocardiogram Summary of Care Provided Minutes Spent on Discharge: 36 Hospital Course: Per HPI: IVAN SALAS, is a 79 M who presents to the hospital with signs and symptoms consistent with stroke. In the middle of the night he got up and noticed that he had significant left lower extremity weakness and when it did not go away this morning he decided to come to the emergency room. He says that it is much better though he is still weak but he was able to ambulate in the hallways with a walker. Denies any numbness or tingling in his lower extremities and he has no weakness in his upper extremities, speech is okay and no facial droop. Hospital Course: 1. Right sided CVA with left-sided weakness?79-year-old male presented to the hospital with left lower extremity weakness. He has had a TIA in the past and had been on aspirin and Plavix at 1 point and then was back down to an aspirin with his cholesterol medications. CTA of the head and neck in the emergency room was unremarkable he did have an MRI of the brain that radiology read is no acute ischemic infarct however neurology was consulted and felt that there was a small infarct in the right hemisphere. He is back to essentially normal, with very little to no weakness in his left lower extremity, NIH of 0. He is discharged sooner than anticipated secondary to his request and his rapid improvement. He did express understanding of the risks and benefits of going home today and would like to go home. I do recommend he follow-up with neurology as an outpatient and will provide a 30-day event monitor to attempt to rule out A-fib, if it is negative he may benefit from a loop recorder as an outpatient. Will continue with Plavix for another 3 weeks and then return to aspirin and Crestor. 2. Essential hypertension, hyperlipidemia, coronary artery disease status post CABG, BPH with obstruction are all chronic medical conditions which complicate his care. His home medications were continued where appropriate Physical Exam Narrative General: Alert, Oriented x3, Cooperative, No apparent distress HEENT: Atraumatic, PERRLA, EOMI, Normocephalic Oral: Moist Mucosa Neck: Supple, No JVD Lungs: Diminished, Normal air movement, No rhonchi, No wheeze, No rales Cardiovascular: Regular rate, Regular Rhythm, Normal S1, Normal S2, No murmurs Abdomen: Soft, Non Tender, Non-Distended, No Hepato-splenomegaly Extremities: No edema, Capillary Refill Less than 3 Seconds Skin: No rashes, No breakdown Musculoskeletal: No Tenderness to Palpation of Joints or Extremities Neurological: No focal neurological issues, moves all extremities, NIH 0 Psych/Mental Status: Normal Affect, Appropriate Weight / BMI Weight Weight: 224 lb 10.417 oz Body Mass Index (BMI) 29.6 ABG / Lab / Microbiology Data 05/30/25 06:09 05/30/25 06:09 Laboratory: Laboratory Results - last 24 hr 05/30/25 06:09: WBC 3.8 L, RBC 3.34 L, Hgb 11.5 L, Hct 33.7 L, MCV 100.9 H, MCH 34.4 H, MCHC 34.1, RDW Std Deviation 50.1 H, RDW Coeff of Michelle 13.5, Plt Count 108 L, MPV 9.1, Immature Gran % (Auto) 0.300, Neut % (Auto) 71.4 H, Lymph % (Auto) 13.1 L, Mcdonald % (Auto) 9.7, Eos % (Auto) 5.2 H, Baso % (Auto) 0.3, Absolute Neuts (auto) 2.7, Absolute Lymphs (auto) 0.50 L, Nucleated RBC % 0, Sodium 139, Potassium 4.1, Chloride 107, Carbon Dioxide 23.8, Anion Gap 8, BUN 21 H, Creatinine 1.29 H, Estim Creat Clear Calc 59.21, Est GFR (MDRD) Non-Af 57 L, BUN/Creatinine Ratio 16.4, Glucose 95, Calcium 9.1, Triglycerides 95, Cholesterol 129, LDL Cholesterol, Calc 69, VLDL Cholesterol 19, HDL Cholesterol 42, Cholesterol/HDL Ratio 3.09 Radiography Diagnostic Testing: Radiology Impression Brain MRI 05/29/25 09:11 IMPRESSION: 1. No acute infarct. No mass effect or midline shift. 2. Chronic involutional and ischemic gliotic white matter changes. Reading Location: [facility] Echocardiogram 05/29/25 09:11 Interpretation Summary Bradycardia present on examination Normal LV systolic function with EF by Case's biplane: 55%. Normal left ventricular diastolic function Normal RV systolic function Normally functioning bioprosthetic aortic valve Compared to echocardiogram in 11/28/2024, there are no significant changes. Ordering Physician: Gurpreet Rivas Referring Physician: Alexei Duran Performed By: Camilla Paredes RDCS D/C Instructions Call your doctor if you observe: Fever of 101 or Higher, Shortness of breath, Dizziness, Fainting spells, Swelling in the ankles, Chest pain and Increased palpitations (irregular heartbeat) DC O2, CPAP, BIPAP Needs Home O2 Discharge instructions: No Meaningful Use Info Meaningful Use Meaningful Use Diagnoses (Choose all that apply): None applicable Discharge Plan Admission Admit Date/Time: 05/29/25 08:34 Attending Provider: Gurpreet Rivas Primary Care Provider: Alexei Duran WARRANTY ADMINISTRATOR Consulting Providers: Dick Montana; iZa Goldstein; Idalia Mitchell; Veronique Nice; Tori Rivera; Agusto Clay; Carissa Graham; Hernando Clifton; Ivan Rivera; Samuel Mills; Linnea Stephenson; Anabel Schmitt; Vinay Rubin; Myesha Erickson; Layo Pittman; Ottoniel Vital; Jarad Meyer; July Dumont; Yariel Lin; Yoli Tinoco; Trevor Cummins Discharge Orders/Prescriptions Prescriptions: New clopidogrel [Plavix] 75 mg tablet 75 mg PO DAILY 30 Days Qty: 30 0RF Continued metoprolol succinate 25 mg tablet extended release 24 hr 12.5 mg PO DAILY rosuvastatin 40 mg tablet 40 mg PO DAILY aspirin 81 mg capsule 81 mg PO DAILY tamsulosin 0.4 mg capsule 0.4 mg PO DAILY finasteride 5 mg tablet 5 mg PO DAILY cholecalciferol (vitamin D3) [Vitamin D3] 25 mcg (1,000 unit) capsule 1,000 unit PO QDAY ezetimibe [Zetia] 10 mg tablet 10 mg PO DAILY Qty: 30 0RF Discontinued clopidogrel 75 mg tablet 75 mg PO DAILY Other Ambulatory Orders: 30 Day Event Recorder Preventi (Routine) Timeframe: 1 Day Facility: [facility] - Location: Cardiovascular Services Ordered By: Dr. Gurpreet Rivas Referrals / Follow Up: Jones Hummel MD [Non-Staff -Ordering Privileges, Neurology] - Within 1 Month Alexei Duran NP, WARRANTY ADMINISTRATOR-C [Primary Care Provider, Family Practice] - Within 1 Week Disposition Disposition (needs filled in before D/C Order can be placed): Home, Self Care Charges/Coding Visit Charges Inpatient E&M: 52081 Disch Hosp >30min
[2025-05-30 13:10] VITALS: BP 171/90; PULSE 74; RESP 14; TEMP 36.8; O2SAT 98
[2025-05-30 13:15] VITALS: BMI 29.6
== END 2025-05-30 13:25 | disposition home or self-care (01) | DRG 65 ==
LOC: ED 08:39 → PCU 08:57
PROVIDERS: Admitting Provider Family Medicine; Emergency Provider Emergency Medicine; PCP Nurse Practitioner Family; Visit Provider Family Medicine
DX: I63.9 Cerebral infarction, unspecified (principal); N13.8 Other obstructive and reflux uropathy; G81.94 Hemiplegia, unspecified affecting left nondominant side; I12.9 Hypertensive chronic kidney disease with stage 1 through stage 4 chronic kidney disease, or unspecified chronic kidney disease; N18.9 Chronic kidney disease, unspecified; Z95.2 Presence of prosthetic heart valve; E78.5 Hyperlipidemia, unspecified; I25.10 Atherosclerotic heart disease of native coronary artery without angina pectoris; N40.1 Benign prostatic hyperplasia with lower urinary tract symptoms; R29.701 NIHSS score 1; Z95.1 Presence of aortocoronary bypass graft; Z79.02 Long term (current) use of antithrombotics/antiplatelets; Z79.82 Long term (current) use of aspirin; Z79.899 Other long term (current) drug therapy
CPT/HCPCS: 36415; 70450; 70496; 70498; 70551; 80048; 80061; 82962; 85025; 85610; 85730; 93005; 93306; 94762; 97162; 97165; 97802; 99285; Q9967; A4216